=== PATIENT | female | born 1985 | race Caucasian/White ===

== ENCOUNTER 2021-09-04 12:54 | Outpatient (CLI) | payer BC, SELFPAY ==
--- NOTE | 2021-09-04 13:19 | US_ITS ---
Final Report Patient: TASHA VALLES Facility:?[facility] Patient ID:?[id number] Site Patient ID:?[id number]. Site :?1985 Study:?US OB Pelvis OB f/u-09/04/2021 1:50:22 PM Ordering Physician:?Kimi Oakes Final Report: INDICATION: Follow-up subchorionic Comparison ultrasound 08/07/21 TECHNIQUE: Real-time szymanski-scale imaging of the pelvis was performed. FINDINGS: Single live intrauterine gestation. [place] Rol[place] length measures 4. 1 cm corresponding to 11 weeks 0 days with KATRIN of 03/26/2022. cardiac activity measures 171 beats per minute. Yolk sac visualized. Subchorionic hemorrhage lower uterine segment measuring 2.3 x 0.3 x 0.3 centimeters decreased in size previously measuring 1.3 x 1.5 x 2 centimeters. Left ovarian 4.3 x 2.3 x 4 centimeter anechoic cyst. IMPRESSION: Single intrauterine gestation with crown-rump length measuring 4.1 centimeters corresponding to gestational age 11 weeks 0 days with KATRIN of 03/26/2022. Small subchorionic hemorrhage in the lower uterine segment measuring 2.3 x 0.3 x 0.3 centimeters decreased in size. 4.3 centimeter x 2.3 x 4 centimeter left ovarian anechoic cyst. Dictated by Silvina Silva MD @ 09/04/2021 8:27:21 PM (Electronic Signature)
== END 2021-09-04 12:55 | disposition home or self-care (01) ==
LOC: US 12:55
PROVIDERS: PCP Internal Medicine; Visit Provider Advanced Practice Midwife
DX: O46.8X1 Other antepartum hemorrhage, first trimester (principal); O41.8X10 Other specified disorders of amniotic fluid and membranes, first trimester, not applicable or unspecified; Z3A.11 11 weeks gestation of pregnancy
CPT/HCPCS: 76816

== ENCOUNTER 2021-09-04 15:12 | Outpatient (CLI) | payer BC, SELFPAY ==
[2021-09-04 18:03] LABS: Albumin* 4.3 g/dL (3.3-5.0)
[2021-09-04 18:06] LABS: Alanine Aminotransferase* 12 U/L (4-35); Alkaline Phosphatase* 76 U/L (40-150); Aspartate Amino Transferase* 18 U/L (12-35); Bilirubin Direct* 0.3 mg/dL (0.0-0.5); Bilirubin Total* 0.4 mg/dL (0.1-1.5)
[2021-09-07 01:23] LABS: Beta-2-Microglob Serum/Plasma 2.2 mg/L (0.8-2.4); Bile Acids, Total 9 umol/L (0-10)
[2021-09-07 05:22] LABS: Cardiolipin Antibody IgA < 10 APL (<=11); Cardiolipin Antibody IgG < 10 GPL (<=14); Cardiolipin Antibody IgM < 10 MPL (<=12)
[2021-09-11 02:47] LABS: Prothrombin Time 12.7 sec (12.0-15.5); dRVVT Screen 32 sec (33-44)
== END 2021-09-04 15:13 | disposition home or self-care (01) ==
PROVIDERS: PCP Internal Medicine; Visit Provider Obstetrics & Gynecology
DX: O41.8X10 Other specified disorders of amniotic fluid and membranes, first trimester, not applicable or unspecified (principal); O20.9 Hemorrhage in early pregnancy, unspecified; O34.81 Maternal care for other abnormalities of pelvic organs, first trimester; N83.202 Unspecified ovarian cyst, left side; Z3A.11 11 weeks gestation of pregnancy
CPT/HCPCS: 76816; 80076; 82232; 82239; 85245; 85610; 85613; 85730; 86039; 86147; 86225; 86235; 86376

== ENCOUNTER 2021-09-17 07:08 | Outpatient (CLI) | payer BC, SELFPAY ==
--- NOTE | 2021-09-17 07:15 | CRLHL7_ITS ---
For Patients: As a result of the Century Cures Act, medical imaging exams and procedure reports are released immediately into your electronic medical record. You may view this report before your referring provider. If you have questions, please contact your health care provider. INDICATION: FOLLOW UP LOGAN, STRONG HX MISCARRIAGE AND LABOR COMPARISON: 09/04/2021 TECHNIQUE: Real-time szymanski-scale imaging of the pelvis was performed. FINDINGS: Sonographic imaging demonstrates a single living intrauterine gestation. The embryo demonstrates a regular cardiac rate measuring 167 beats per minute. The embryo`s crown-rump length measurement of 6.1 cm corresponds to a gestational age of 12 weeks 4 days with a sonographic due date of 03/28/2022. Previously noted subchorionic hemorrhage is not visualized on today`s study. There is a small retroplacental bleed is measuring 2.9 x 2.7 x 1.2 cm. Corpus luteal cyst left ovary again noted. IMPRESSION: Resolution of previously noted subchorionic hemorrhage. Retroplacental hemorrhage is now present measuring 2.9 x 2.7 x 1.2 cm. Dictated by Ethan Bah MD @ 09/17/2021 8:42:52 AM (Electronically Signed)
== END 2021-09-17 07:09 | disposition home or self-care (01) ==
LOC: US 07:09
PROVIDERS: PCP Internal Medicine; Visit Provider Advanced Practice Midwife
DX: O09.211 Supervision of pregnancy with history of pre-term labor, first trimester (principal); O20.9 Hemorrhage in early pregnancy, unspecified; Z3A.12 12 weeks gestation of pregnancy
CPT/HCPCS: 76816

== ENCOUNTER 2021-09-17 09:49 | Outpatient (CLI) | payer BC, SELFPAY ==
[2021-09-17 14:19] LABS: Free T4 Free Thyroxine* 1.52 ng/dL (0.70-1.85)
[2021-09-17 14:33] LABS: Thyroid Stimulating Hormone* 0.088 uIU/mL (0.270-4.20)
--- OUTSIDE RECORDS SUMMARY | 2021-10-15 08:09 | XMS_ITS | Encounter Summary ---
:1985 Author Organization [place] Address [address] [place] [address]. 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 [place] [id number] Social History Tobacco Use Types Packs/Day Years Used Date Never Smoker Smokeless Tobacco: Never Used Alcohol Use Standard Drinks/Week Comments Yes 0 (1 standard drink = 0.6 oz pure alcoho l) Sex Assigned at Date Recorded Not on file documented as of this encounter Plan of Treatment Upcoming Encounters Date Type Specialty Care Team Description 01/07/2022 Virtual Visit Endocrinology Natalya Jean MD [address] [place] [address] (Wo rk) documented as of this encounter Procedures Procedure Name Priority Date/Time Associated Comments Diagnosis TSH WITH FREE T4 Routine 04/26/2015 8:26 AM Encounter for Resu lts for this REFLEX WIND SITE MANAGER routine adult procedure are in physical exam with the resul ts abnormal finding s section. Hypothyroidism due to acquired atrophy of thyroid T4 FREE Routine 04/26/2015 8:26 AM Encounter for Results for this WIND SITE MANAGER routine adult procedure are in physical exam with the resul ts abnormal findings section. LIPID REFLEX TO DIRECT Routine 04/26/2015 8:26 AM Encounter fo r Results for this LDL PANEL WIND SITE MANAGER routine adult procedure are in physical exam with the resul ts abnormal findings section. COMPREHENSIVE Routine 04/26/2015 8:26 AM Encounter for Results for this METABOLIC PANEL WIND SITE MANAGER routine adult procedure a re in physical exam with the resul ts abnormal finding s section. Overweight CBC WITH PLATELETS Routine 04/26/2015 8:26 AM Encounter for Re sults for this WIND SITE MANAGER routine adult procedure are in physical exam with the resul ts abnormal findings section. documented in this encounter Results T4 free (04/26/2015 8:26 AM WIND SITE MANAGER) athologist Signature T4 Free 0.98 0.76 - 1.46 [facility] ng/dL [facility] Specimen Anatomical Collection Method Collection Time Receive d Time (Source) Location / / Volume Laterality 04/26/2015 8:26 AM 6 8:27 WIND SITE MANAGER AM WIND SITE MANAGER Gina Bautista PA-C LAB - BLOOD ORDERABLES Performing Organization Address City/State/ZIP Code Phon e Number [facility] [address] [place] [address] (ABNORMAL) CBC with platelets (04/26/2015 8:26 AM WIND SITE MANAGER) athologist Signature WBC 4.7 4.0 - 11.0 [place] 10e9/L [facility] RBC Count 4.41 3.8 - 5.2 [place] 10e12/L [facility] [place] Hemoglobin 8.4 (L) 11.7 - 15.7 [place] g/dL [facility] [place] Comment: Results confirmed by repeat mónica t Hematocrit 29.1 (L) 35.0 - 47.0 % [facility] [place] MCV 66 (L) 78 - 100 fl [facility] [place] MCH 19.0 (L) 26.5 - 33.0 pg [facility] [place] MCHC 28.9 (L) 31.5 - 36.5 g/dL [facility] Comment: Results confirmed by repeat mónica t RDW 16.7 (H) 10.0 - 15.0 % [facility] Platelet Count 321 150 - 450 10e9/L [facility] Specimen Anatomical Collection Method Collection Time Receive d Time (Source) Location / / Volume Laterality Blood specimen 04/26/2015 8:26 AM 016 8:27 (specimen) WIND SITE MANAGER AM WIND SITE MANAGER Gina Bautista PA-C LAB - BLOOD ORDERABLES Performing Organization Address City/[facility]/ZIP Code Phon e Number [facility] [address] [place], [place] [address] LIPID REFLEX TO DIRECT LDL PANEL (04/26/2015 8:26 AM WIND SITE MANAGER) P athologist Signature Cholesterol 109 <200 mg/dL [facility] Triglycerides 70 <150 mg/dL [facility] Comment: Fasting specimen HDL Cholesterol 54 >49 mg/dL [place] [facility] LDL Cholesterol Calculated 41 <100 mg/dL [facility] Comment: Desirable: <100 mg/dl Non HDL Cholesterol 55 <130 mg/dL [facility] Specimen Anatomical Collection Method Collection Time Receive d Time (Source) Location / / Volume Laterality Blood specimen 04/26/2015 8:26 AM 016 8:27 (specimen) WIND SITE MANAGER AM WIND SITE MANAGER Gina Bautista PA-C LAB - BLOOD ORDERABLES Performing Organization Address City/[facility]/ZIP Code Phon e Number [facility] [address] [place] [address] (ABNORMAL) TSH with free T4 reflex (04/26/2015 8:26 AM WIND SITE MANAGER) P athologist Signature TSH 7.92 (H) 0.40 - [facility] 4.00 mU/L [facility] Specimen Anatomical Collection Method Collection Time Receive d Time (Source) Location / / Volume Laterality Blood specimen 04/26/2015 8:26 AM 016 8:27 (specimen) WIND SITE MANAGER AM WIND SITE MANAGER Gina Bautista PA-C LAB - BLOOD ORDERABLES Performing Organization Address City/State/ZIP Code Phon e Number [facility] [address] [place] [address] (ABNORMAL) Comprehensive metabolic panel (04/26/2015 8:26 AM WIND SITE MANAGER) [facility] gist Method Time Signature Sodium 140 133 - 144 [place] mmol/L [facility] Potassium 4.1 3.4 - 5.3 [place] mmol/L [facility] Chloride 109 94 - 109 [place] mmol/L [facility] Carbon Dioxide 23 20 - 32 [place] mmol/L [facility] Anion Gap 8 3 - 14 [place] mmol/L [facility] Glucose 87 70 - 99 [place] mg/dL [facility] Urea Nitrogen 10 7 - 30 [place] mg/dL [facility] Creatinine 0.74 0.52 - [place] 1.04 [facility]INICS mg/dL [facility] GFR Estimate >90 >60 [place] Non GFR Calc mL/min/1. CLINICS 7m2 [facility] GFR Estimate If >90 >60 [place] Black GFR Calc mL/min/1. CLIN ICS 7m2 [facility] Calcium 8.3 (L) 8.5 - [place] 10.1 CLINICS mg/dL [facility] Bilirubin Total 0.5 0.2 - 1.3 [place] mg/dL [facility] Albumin 3.8 3.4 - 5.0 [place] g/dL [facility] Protein Total 7.4 6.8 - 8.8 [place] g/dL [facility] Alkaline 71 40 - 150 [place] Phosphatase U/L [facility] ALT 19 0 - 50 [place] U/L [facility] AST 14 0 - 45 [facility] U/L [facility] Specimen Anatomical Collection Method Collection Time Receive d Time (Source) Location / / Volume Laterality Blood specimen 04/26/2015 8:26 AM 016 8:27 (specimen) WIND SITE MANAGER AM WIND SITE MANAGER Gina Bautista PA-C LAB - BLOOD ORDERABLES Performing Organization Address City/State/ZIP Code Phon e Number [facility] [address] [place] [address] documented in this encounter Visit Diagnoses Diagnosis Encounter for routine adult physical exa m with abnormal findings Overweight 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 documented in this encounter Additional Health Concerns Assessment Noted Time PHQ-9 Depression Total Score: 16 04/26/2015 8:54 AM CS T documented as of this encounter Care Teams Psychiatric Registered Nurse Relationship Specialty Start Date End Date Gina Bautista, PCP - General Physician Weir Fisher 5 09/03/21 PA-C [id number] [address] [place], [place] [address] Gina Bautista, PCP - Assigned PCP 01/12/15 05/11/18 PA-C [id number] [address] [place], [place] [address] Gina Bautista, Physician Weir Fisher 01/31/15 PA-C [id number] [address] [place], [place] [address] Gina Bautista, Assigned PCP 01/12/15 PA-C [id number] [place] [address] documented as of this encounter
--- OUTSIDE RECORDS SUMMARY | 2021-10-15 08:09 | XMS_ITS | Encounter Summary ---
:1985 Author Organization [facility] Address [address] [place] [address]. [place] [address] Care Team Providers Name Role Phone Gina Bautista PA-C Primary Care Provider [phone] Gina Bautista PA-C Unavailable [phone] Gina Bautista PA-C Unavailable [phone] Gina Bautista PA-C Unavailable [phone] Reason for Visit Reason Comments URI Encounter Details Date Type Department Care Team Description 06/25/2015 Office Visit [facility] Serum, Ro Viral URI (Primary Dx); Yony Yarbrough MD Acute pharyngitis, unspecified etiology [address] [facility] [place] [id number] [place] [phone] [address] [place], [place] [address] Social History Tobacco Use Types Packs/Day Years Used Date Never Smoker Smokeless Tobacco: Never Used Alcohol Use Standard Drinks/Week Comments Yes 0 (1 standard drink = 0.6 oz pure alcoho l) Sex Assigned at Date Recorded Not on file documented as of this encounter Last Filed Vital Signs Vital Sign Reading Time Taken Comments Blood Pressure 96/56 06/25/2015 5:17 PM CDT Pulse 82 06/25/2015 5:17 PM CDT Temperature 36.6 ??C (97.8 ??F) 06/25/2015 5:17 PM CDT Respiratory Rate - - Oxygen Saturation 100% 06/25/2015 5:17 PM CDT Inhaled Oxygen Concentration - - Weight 81.3 kg (179 lb 3.2 oz) 06/25/2015 5:17 PM CDT Height 167 cm (5' 5.75) 06/25/2015 5:17 PM CDT Body Mass Index 29.14 06/25/2015 5:17 PM CDT documented in this encounter Progress Notes oR Salgado MD - 06/25/2015 5:19 PM CDT SUBJECTIVE: Carley Hernandez is a 29 year old female who presents to clinic today for the following health issues: RESPIRATORY SYMPTOMS ?? Duration: 2 days ?? Description nasal congestion, rhinorrhea, sore throat, facial pain/pressure, cough, fever, headache, fatigue/malaise, hoarse voice, conjunctival irritation and diarrhea ?? Severity: moderate ?? Accompanying signs and symptoms: None ?? History (predisposing factors): none ?? Precipitating or alleviating factors: None ?? Therapies tried and outcome: rest and fluids OTC NSAID Woke up 2 days ago with fatigue and sore throat. Fever - 101.3. Woke up with congestion, facial pain, headache. Pushing fluids, resting and taking ibuprofen - about every 6 hours. No further fevers. Having diarrhea - worse this am. Loose without blood. Both boys have been sick and negative test for influenza. Have both had high fevers, fatigue. Problem list and histories reviewed & adjusted, as indicated. Additional history: as documented ROS: Constitutional, HEENT, cardiovascular, pulmonary, gi and gu systems are negative, except as otherwise noted. Problem list, Medication list, Allergies, and Medical/Social/Surgical histories reviewed in [facility] andupdated as appropriate. OBJECTIVE: BP 96/56 mmHg Pulse 82 Temp(Src) 97.8 ??F (36.6 ??C) (Tympanic) Ht 5' 5.75 (1.67 m) Wt 179 lb 3.2 oz (81.285 kg) BMI 29.15 kg/m2 SpO2 100% Body mass index is 29.15 kg/(m^2). General Appearance: tired appearing, alert and no distress Eyes: no discharge, erythema. Normal pupils. Both Ears: normal: no effusions, no erythema, normal landmarks Nose: clear rhinorrhea and congested Sinuses: maxillary tenderness on bilaterally Oropharynx: mild erythema, clear PND Neck: Supple. No adenopathy, no asymmetry, masses Respiratory: lungs clear to auscultation - no rales, rhonchi or wheezes. Cardiovascular: regular rate and rhythm, normal S1 S2, no S3 or S4 and no murmur, click or rub. No peripheral edema. Skin: no rashes or lesions. Well perfused and normal turgor. Diagnostic Test Results: Results for orders placed or performed in visit on 06/25/15 (from the past 24 hour(s)) Strep, Rapid Screen Result Value Ref Range Specimen Description Throat Rapid Strep A Screen NEGATIVE: No Group A streptococcal antigen detected by immunoassay, await culture report. Micro Report Status FINAL 06/25/2015 ASSESSMENT/PLAN: (J06.9) Viral URI (primary encounter diagnosis) Comment: strep negative, sx c/w viral infection, likely adenovirus Plan: - supportive cares - push fluids, rest - ibuprofen as needed - steamy showers, decongestant as needed (J02.9) Acute pharyngitis, unspecified etiology Plan: Strep, Rapid Screen, Beta strep group A culture - will call if strep turns positive BMI: Estimated body mass index is 29.15 kg/(m^2) as calculated from the following: Height as of this encounter: 5' 5.75 (1.67 m). Weight as of this encounter: 179 lb 3.2 oz (81.285 kg). Weight management plan: Patient was referred to their PCP to discuss a diet and exercise plan. Follow up with Provider - alexis Salgado [facility] [place] documented in this encounter Nursing Notes Melody Womack LPN - 06/25/2015 5:19 PM CDT Chief Complaint Patient presents with ??? URI Initial BP 96/56 mmHg Pulse 82 Temp(Src) 97.8 ??F (36.6 ??C) (Tympanic) Ht 5' 5.75 (1.67 m) Wt 179 lb 3.2 oz (81.285 kg) BMI 29.15 kg/m2 SpO2 100% Estimated body mass index is 29.15 kg/(m^2) as calculated from the following: Height as of this encounter: 5' 5.75 (1.67 m). Weight as of this encounter: 179 lb 3.2 oz (81.285 kg). BP completed using cuff size: regular Melody Womack LPN documented in this encounter Plan of Treatment Upcoming Encounters Date Type Specialty Care Team Description 01/07/2022 Virtual Visit Endocrinology Natalya Jean MD [address] [place] [address] (Wo rk) documented as of this encounter Procedures Procedure Name Priority Date/Time Associated Diagnosis Comme nts RAPID STREP SCREEN Routine 06/25/2015 5:20 PM Acute pharyngiti s, Results for this THROAT SWAB CDT unspecified etiology procedu re are in the results section. BETA HEMOLYTIC Routine 06/25/2015 5:20 PM Acute pharyngitis, R esults for this STREP GROUP A CDT unspecified etiology proced ure are in CULTURE the results section. documented in this encounter Results Beta strep group A culture (06/25/2015 5:20 PM CDT) Component Value Ref Test Analysis Performed At [facility] Range Method Time Signature Specimen Throat [facility] [place] Culture Micro No Beta [place] Streptococcus CLINICS isolated [place] Micro Report FINAL 06/27/2015 [facility] Specimen Anatomical Collection Method Collection Time Receive d Time (Source) Location / / Volume Laterality 06/25/2015 5:20 PM 6 5:25 CDT PM CDT Ro Salgado MD LAB - MICRO GENERAL ORDERABL ES Performing Organization Address City/State/ZIP Code Phon e Number [facility] [address] [facility] [place] [address] Strep, Rapid Screen (06/25/2015 5:20 PM CDT) Component Value Ref Test Analysis Performed At [facility] [employer] Range Method Time Signature Specimen Throat [facility] [place] Rapid Strep A NEGATIVE: No Group A strepto coccal antigen detected by immunoassay, await [place] Screen culture report. CLINICS [place] Micro Report FINAL 06/25/2015 [place] Status [facility]INICS [facility] Specimen Anatomical Collection Method Collection Time Receive d Time (Source) Location / / Volume Laterality Specimen from 06/25/2015 5:20 PM 06/25/19 16 5:25 throat CDT PM CDT (specimen) Ro Salgado MD LAB - MICRO GENERAL ORDERABL ES Performing Organization Address City/State/ZIP Code Phon e Number [facility] [place] [address] [facility] [place] [address] documented in this encounter Visit Diagnoses Diagnosis Viral URI - Primary Acute upper respiratory infections of un specified site Acute pharyngitis, unspecified etiology documented in this encounter Additional Health Concerns Assessment Noted Time PHQ-9 Depression Total Score: 16 04/26/2015 8:54 AM CS T documented as of this encounter Care Teams Yarn Preparation Supervisor Relationship Specialty Start Date End Date Gina Bautista, PCP - General Physician Fulfillment Representative 5 09/03/21 PA-C [id number] [place] [address] Gina Bautista, PCP - Assigned PCP 01/12/15 05/11/18 PA-C [address] [place] [address] Gina Bautista, Physician Fulfillment Representative 01/31/15 PA-C 47640 [address] [place], [place] [address] Gina Bautista, Assigned PCP 01/12/15 PA-C [address] [place] [address] documented as of this encounter
--- OUTSIDE RECORDS SUMMARY | 2021-10-15 08:09 | XMS_ITS | Encounter Summary ---
:1985 Author Organization [place] Address [address] [place] [address]. 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 [address] [place] [address] Social History Tobacco Use Types Packs/Day Years Used Date Never Smoker Smokeless Tobacco: Never Used Alcohol Use Standard Drinks/Week Comments Yes 0 (1 standard drink = 0.6 oz pure alcoho l) Sex Assigned at Date Recorded Not on file documented as of this encounter Plan of Treatment Upcoming Encounters Date Type Specialty Care Team Description 01/07/2022 Virtual Visit Endocrinology aNtalya Jean MD [address] [place], [place] [phone] (Wo rk) documented as of this encounter Procedures Procedure Name Priority Date/Time Associated Diagnosis Comme nts VITAMIN D Routine 04/10/2017 2:35 PM Vitamin D deficiency R esults for this DEFICIENCY BRIDGE INSPECTOR procedure are i n SCREENING the results section. TSH WITH FREE T4 Routine 04/10/2017 2:35 PM Hypothyroidism due to Results for this REFLEX BRIDGE INSPECTOR acquired atrophy of procedur e are in thyroid the results section. T4 FREE Routine 04/10/2017 2:35 PM Vitamin D deficiency R esults for this BRIDGE INSPECTOR procedure are i n the results section. documented in this encounter Results T4 free (04/10/2017 2:35 PM BRIDGE INSPECTOR) athologist Signature T4 Free 0.94 0.76 - 1.46 04/12/2017 [facility] ng/dL 1:41 PM BRIDGE INSPECTOR [facility] Specimen Anatomical Collection Method Collection Time Receive d Time (Source) Location / / Volume Laterality 04/10/2017 2:35 PM 8 2:36 BRIDGE INSPECTOR PM BRIDGE INSPECTOR Gina Bautista PA-C LAB - BLOOD ORDERABLES Performing Organization Address City/[facility]/ZIP Code Phon e Number [facility] [address] [place] [phone] (ABNORMAL) TSH with free T4 reflex FUTURE 2mo (04/10/2017 2:35 PM BRIDGE INSPECTOR) athologist Signature TSH 10.56 (H) 0.40 - 04/12/2017 [facility] 4.00 mU/L 1:[address] [facility] Specimen Anatomical Collection Method Collection Time Receive d Time (Source) Location / / Volume Laterality Blood specimen 04/10/2017 2:35 PM 018 2:36 (specimen) BRIDGE INSPECTOR PM BRIDGE INSPECTOR Gina Bautista PA-C LAB - BLOOD ORDERABLES Performing Organization Address City/State/ZIP Code Phon e Number [facility] [address] [place] [phone] (ABNORMAL) Vitamin D Deficiency (04/10/2017 2:35 PM BRIDGE INSPECTOR) athologist Signature Vitamin D 13 (L) 20 - 75 04/11/2017 [facility] Deficiency ug/L 11:46 AM BRIDGE INSPECTOR [facility] Comment: Season, race, dietary intake, and treatm ent affect the concentration of 80-iuyennv-Ypjmsiu D. Values may decreas e during winter months and increase during summer months. Values 20-29 ug/L may indicate Vitamin D insufficiency and values <20 ug/L may indicate Vitamin D deficiency. Vitamin D determination is routinely per formed by an immunoassay specific for 25 hydroxyvitamin D3. ??If an individual is on vitamin D2 (ergocalciferol) supplementation, please specify 25 OH vi tamin D2 and D3 level determination by LCMSMS test VITD23. Specimen Anatomical Collection Method Collection Time Receive d Time (Source) Location / / Volume Laterality Blood specimen 04/10/2017 2:35 PM 018 2:36 (specimen) BRIDGE INSPECTOR PM BRIDGE INSPECTOR Gina Bautista PA-C LAB - BLOOD ORDERABLES Performing Organization Address City/State/ZIP Code Phon e Number [address] documented in this encounter Visit Diagnoses Diagnosis Vitamin D deficiency Unspecified vitamin D deficiency 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 documented in this encounter Additional Health Concerns Assessment Noted Time PHQ-9 Depression Total Score: 9 02/19/2017 2:07 PM BRIDGE INSPECTOR documented as of this encounter Care Teams Pneumatic Press Hand Relationship Specialty Start Date End Date Gina Bautista, PCP - General Physician Dinkey Engine Operator 5 09/03/21 PA-C [id number] [place] [address] Gina Bautista, PCP - Assigned PCP 01/12/15 05/11/18 PA-C [id number] [place] [address] Gina Bautista, Physician Dinkey Engine Operator 01/31/15 PA-C [address] [place] [address] Gina Bautista, Assigned PCP 01/12/15 PA-C [address] [place] [address] documented as of this encounter
--- OUTSIDE RECORDS SUMMARY | 2021-10-15 08:09 | XMS_ITS | Encounter Summary ---
:1985 Author Organization [place] Address [address] [place] [address] Care Team Providers Name Role Phone Gina Bautista PA-C Unavailable [phone] Vidya Espinal APRNM Unavailable [phone] [place] [address] Unavailable Marissa Jean MD Unavailable Violette BoldenM Primary Care Provider Reason for Visit Reason Onset Date Comments Appointment 09/04/2021 Encounter Details Date Type Department Care Team Description 09/04/[address] [facility] Natalya Jean, Lizzeth Israel MD [address] [facility] [address] [place] [address] [place], [place] [address] (Wo rk) Social History Tobacco Use Types Packs/Day Years Used Date Never Smoker Smokeless Tobacco: Never Used Alcohol Use Standard Drinks/Week Comments Yes 0 (1 standard drink = 0.6 oz pure alcoho l) Sex Assigned at Date Recorded Not on file documented as of this encounter Miscellaneous Notes Telephone Encounter - Bhavana Biswas - 09/04/2021 12:21 PM CDT [facility], relayed message to mapping analyst she will relay this message to the team/person who called. Telephone Encounter - Marissa Jean MD - 09/04/2021 10:29 AM CDT NEW PT TO ME. I am very sorry- but at this time schedule is booked out and I do not have any sooner appointments. Patient my wish to request endo consult at another locations or [facility] Endocrinology. Let me know if you have any questions. Thank you. Marissa Jean MD Telephone Encounter - Karyn Iniguez RN - 09/04/2021 9:15 AM CDT Please advise as pt is . Telephone Encounter - Kendall Burden - 09/04/2021 9:08 AM CDT [facility] Call [facility] Phone Message May a detailed message be left on voicemail: yes Reason for Call: Appointment Intake Referring Provider Name: Vidya Espinal Diagnosis and/or Symptoms: Hypothyroidism and Per referral urgency 3-5 days. [facility] wondering if pt can be seen before 01/07. Action Taken: Message routed to: Other: endo Travel Screening: Not Applicable documented in this encounter Plan of Treatment Upcoming Encounters Date Type Specialty Care Team Description 01/07/2022 Virtual Visit Endocrinology Natalya Jean MD [address] [place] [address] (Wo rk) documented as of this encounter Visit Diagnoses Not on filedocumented in this encounter Additional Health Concerns Assessment Noted Time PHQ-9 Depression Total Score: 10 05/09/2017 8:01 AM CS T documented as of this encounter Care Teams Inductor Tester Relationship Specialty Start Date End Date Violette Bolden CNM PCP - General 09/04/21 [facility] [address] [place] [address] Gina Bautista, Physician Youth Career Specialist 01/31/15 [facility] [address] [place] [address] Vidya Espinal APRN CNM Granite Fabricator 08/21/[address] [address] Clinic[facility] 08/21/21 [facility] [address] [place] [address] Marissa Jean MD Hospitalist Endocrinology, 09/04/21 [address] Diabetes, and [address] [place], [place] [id number] documented as of this encounter
--- OUTSIDE RECORDS SUMMARY | 2021-10-15 08:09 | XMS_ITS | Encounter Summary ---
:1985 Author Organization [place] Address [address] [place] [address]. [place] [address] Care Team Providers Name Role Phone Gina Bautista PA-C Primary Care Provider [phone] Gina Bautista PA-C Unavailable [phone] Gina Bautista PA-C Unavailable [phone] Gina Bautista PA-C Unavailable [phone] Encounter Details Date Type Department Care Team Description 05/22/2017 Office Visit [facility] Lisa Lopez LP Anxiety (Primary Dx) Services [address] [phone] Social History Tobacco Use Types Packs/Day Years Used Date Never Smoker Smokeless Tobacco: Never Used Alcohol Use Standard Drinks/Week Comments Yes 0 (1 standard drink = 0.6 oz pure alcoho l) Sex Assigned at Date Recorded Not on file documented as of this encounter Progress Notes Lisa Lopez LP - 05/22/2017 2:00 PM CDT Images from the original note were not included. Progress Note Client Name: Carley Hernandez Date: 05-22-17 Service Type: Individual Session Start Time: 2:10 Session End Time: 3:00 pm Session Length: 38- 52 min Session #: 5 Attendees: Client Treatment Plan Last Reviewed: today PHQ-9 / JUAN MIGUEL-7 : see flow sheet DATA Progress Since Last Session (Related to Symptoms / Goals / Homework): Symptoms: Stable, but with anxiety Homework: Completed in session Episode of Care Goals: Satisfactory progress - ACTION (Actively working towards change); Intervenedby reinforcing change plan / affirming steps taken Current / Ongoing Stressors and Concerns: difficult co-parenting Has full physical custody / shared legal custody anxiety Treatment Objective(s) Addressed in This Session: use at least 6 coping skills for anxiety management in the next 16 weeks Intervention: Client reports that overall she is able to breath again Although its a stressful week, moving to new town feels on course. Explored co-parenting; especially for her with spouses daughter. Processed emotions. ASSESSMENT: Current Emotional / Mental Status (status of significant symptoms): Risk status (Self / Other harm or suicidal ideation) Client denies current fears or concerns for personal safety. Client denies current or recent suicidal ideation or behaviors. Client denies current or recent homicidal ideation or behaviors. Client denies current or recent self injurious behavior or ideation. Client denies other safety concerns. A safety and risk management plan has not been developed at this time, however client was given theafter-hours number / 911 should there be a change in any of these risk factors. Appearance: Appropriate Eye Contact: Good Psychomotor Behavior: Normal Attitude: Cooperative Orientation: All Speech Rate / Production: Normal Volume: Normal Mood: Normal Affect: Appropriate Thought Content: Clear Thought Form: Coherent Logical Insight: Good Medication Review: No current psychiatric medications prescribed Medication Compliance: NA Changes in Health Issues: None reported Chemical Use Review: Substance Use: Chemical use reviewed, no active concerns identified Tobacco Use: No current tobacco use. Collateral Reports Completed: Routed note to PCP as needed. PLAN: (Client Tasks / Therapist Tasks / Other) Reframe Isvinny's misbehaviors as anxiety. Parenting discussion with spouse past hw Consider sharing the idea of thresholds with spouse. Past hw Use TIP taylor Lopez LP Treatment Plan Client's Name: Carley Hernandez Date Of : 1985 Date: 02-19-17 DSM-V Diagnoses: JUAN MIGUEL Psychosocial / Contextual Factors: WHODAS: see dx Referral / Collaboration: Referral to another professional/service is not indicated at this time.. Anticipated number of session or this episode of care: 10 As a preliminary treatment goal, client will experience a reduction in anxiety, will develop more effective coping skills to manage anxiety symptoms, will develop healthy cognitive patterns and beliefsand will increase ability to function adaptively. The focus of initial interventions will be to alleviate anxiety, increase ability to function adaptively, increase coping skills, increase self esteem, teach CBT skills, teach distress tolerance skills, teach problem-solving skills and teach stress mangement techniques MeasurableTreatment Goal(s) related to diagnosis / functional impairment(s) Goal 1: Client will gain skills to manage anxiety. ???I will know I've met my goal when .??? good understand Fight/flight, use healthy detachment skills Objective #A (Client Action) Client will use cognitive strategies identified in therapy to challenge anxious thoughts. Status: New - Date: 02-19-17 Update: 05-22-17 Making progress. Is using skills. Plan is to gain consistently, and mage triggers. Intervention(s) Therapist will teach CBT, coping skills. Objective #B Client will use at least 6 coping skills for anxiety management in the next 16 weeks. Status: New - Date: 02-19-17 Update: 05-22-17 Making progress. Is using skills. Plan is to gain consistently, and mage triggers. Intervention(s) Therapist will teach CBT, coping skills. Client has reviewed and agreed to the above plan. Lisa Lopez LP February 19, 2017 documented in this encounter Plan of Treatment Upcoming Encounters Date Type Specialty Care Team Description 01/07/2022 Virtual Visit Endocrinology Natalya Jean MD [address] [place] [address] (Wo rk) documented as of this encounter Visit Diagnoses Diagnosis Anxiety - Primary Anxiety state, unspecified documented in this encounter Additional Health Concerns Assessment Noted Time PHQ-9 Depression Total Score: 10 05/09/2017 8:01 AM CS T documented as of this encounter Care Teams Flight Attendant/Inflight Supervisor Relationship Specialty Start Date End Date Gina Bautista, PCP - General Physician Hemmer Chainstitch 5 09/03/21 [place] [address] [place], [place] [address] Gina Bautista, PCP - Assigned PCP 01/12/15 05/11/18 [place] [address] [place], [place] [address] Gina Bautista, Physician Hemmer Chainstitch 01/31/15 [facility] [address] [place], [place] [address] Gina Bautista, Assigned PCP 01/12/15 [place] [address] [place], [place] [address] documented as of this encounter
--- OUTSIDE RECORDS SUMMARY | 2021-10-15 08:09 | XMS_ITS | Encounter Summary ---
:1985 Author Organization [place] Address [address] [place] [address] Care Team Providers Name Role Phone Gina Bautista PA-C Primary Care Provider [phone] Gina Bautista PA-C Unavailable [phone] Gina Bautista PA-C Unavailable [phone] Gina Bautista PA-C Unavailable [phone] Encounter Details Date Type Department Care Team Description 04/27/2015 Orders Only [facility] Iro n deficiency anemia, [place] [facility] unspecified iron [address] [place] [address] Social History Tobacco Use Types Packs/Day [...] Endocrinology Natalya Jean MD [address] [place], [place] [address] (Wo rk) documented as of this encounter Procedures Procedure Name Priority Date/Time Associated Diagnosis Comme nts IRON AND IRON Routine 04/27/2015 11:50 AM Iron deficiency Resu lts for this BINDING CAPACITY FRUIT EXPRESS AGENT anemia, unspecified proc edure are in iron deficiency the results section. FERRITIN Routine 04/27/2015 11:50 AM Iron deficiency Resul ts for this FRUIT EXPRESS AGENT anemia, unspecified procedur e are in iron deficiency the results section. documented in this encounter Results (ABNORMAL) Iron and iron binding capacity (04/27/2015 11:50 AM FRUIT EXPRESS AGENT) Patholo gist Method Time Signature Iron 13 (L) 35 - 180 [facility] Iron Binding 619 (H) 240 - 430 [place] Cap ug/dL [facility] Iron Saturation 2 (L) 15 - 46 % [place] Index [facility] Specimen Anatomical Collection Method Collection Time Receive d Time (Source) Location / / Volume Laterality Blood specimen 04/27/2015 11:50 6 (specimen) AM FRUIT EXPRESS AGENT 11:51 AM FRUIT EXPRESS AGENT Gina Bautista PA-C LAB - BLOOD ORDERABLES Performing Organization Address City/[facility]/ZIP [facility] Phon e Number [facility] [address] [place] [phone] (ABNORMAL) Ferritin (04/27/2015 11:50 AM FRUIT EXPRESS AGENT) P athologist Signature Ferritin 2 (L) 12 - 150 [facility] ng/mL [facility] Specimen Anatomical Collection Method Collection Time Receive d Time (Source) Location / / Volume Laterality Blood specimen 04/27/2015 11:50 6 (specimen) AM FRUIT EXPRESS AGENT 11:51 AM FRUIT EXPRESS AGENT Gina Bautista PA-C LAB - BLOOD ORDERABLES Performing Organization Address City/[facility] Phon e Number [facility] [address] [place] [address] documented in this encounter Visit Diagnoses Diagnosis Iron deficiency anemia, unspecified iron deficiency documented in this encounter Additional Health Concerns Assessment Noted Time PHQ-9 Depression Total Score: 16 04/26/2015 8:54 AM CS T documented as of this encounter Care Teams Residential Framing Carpenter Relationship Specialty Start Date End Date Gina Bautista PCP - General Physician Leather Scraper 5 09/03/21 [place] [address] [place] [address] Gina Bautista, PCP - Assigned PCP 01/12/15 05/11/18 PA-C [address] [place], [place] [id number] Gina Bautista, Physician Leather Scraper 01/31/15 PA-C [address] [place], [place] [address] Gina Bautista, Assigned PCP 01/12/15 PA-C [address] [place], [place] [address] documented as of this encounter
--- OUTSIDE RECORDS SUMMARY | 2021-10-15 08:09 | XMS_ITS | Encounter Summary ---
:1985 Author Organization [facility] Address [address] [place] [address]. [place] [address] Care Team Providers Name Role Phone Gina Bautista PA-C Primary Care Provider [phone] Oestrfrances, Gina Vance PA-C Unavailable [phone] Oestrfrances, Gina Vance PA-C Unavailable [phone] Oestrfrances, Gina Vance PA-C Unavailable [phone] Reason for Visit Reason Comments IUD Encounter Details Date Type Department Care Team Description 01/27/2017 Office Visit [facility] Nadine Monreal Encou nter for IUD removal (Primary Dx); [facility] Encounter for preconception consultation [place] [address] [place] [address] [facility] [address] [place], [place] (Work) [address] [phone] Social History Tobacco Use Types Packs/Day Years Used Date Never Smoker Smokeless Tobacco: Never Used Alcohol Use Standard Drinks/Week Comments Yes 0 (1 standard drink = 0.6 oz pure alcoho l) Sex Assigned at Date Recorded Not on file documented as of this encounter Last Filed Vital Signs Vital Sign Reading Time Taken Comments Blood Pressure 100/60 01/27/2017 1:05 PM EXTERMINATOR Pulse - - Temperature - - Respiratory Rate - - Oxygen Saturation - - Inhaled Oxygen Concentration - - Weight 79.3 kg (174 lb 12.8 oz) 01/27/2017 1:05 PM EXTERMINATOR Height - - Body Mass Index 28.21 12/19/2016 2:53 PM CDT documented in this encounter Progress Notes Nadine Monreal MD - 01/27/2017 1:00 PM CST SUBJECTIVE: Carley Hernandez is a 31 year old female who presents to clinic today for IUD removal. She alsonotes that her 2 prior pregnancies were high risk. She is status post gastric bypass in 2007 priorto either . First complicated by foreshortened cervix, bedrest at 26 weeks, delivered at 35 weeks vaginally with no complications. Second was on 17OHP, delivered vaginally at 34 weeks and baby was in NICU for 2 weeks. This is a new partner. She does wish to conceive again soon. Her immediate history is also significant for anemia. She is seeing hematology. This is thought to be iron deficiency related to her prior bypass, and she has now received 2 iron infusions. We discussed the need to stabilize this and increase her hemoglobin and iron stores prior to . Problem list and histories reviewed & adjusted, as indicated. Additional history: as documented. Patient Active Problem List Diagnosis ??? Adjustment disorder with depressed mood ??? Hypothyroidism due to acquired atrophy of thyroid ??? Overweight ??? S/P gastric bypass Past Surgical History: Procedure Laterality Date ??? CHOLECYSTECTOMY ??? GASTRIC BYPASS Social History Substance Use Topics ??? Smoking status: Never Smoker ??? Smokeless tobacco: Never Used ??? Alcohol use 0.0 oz/week 0 Standard drinks or equivalent per week Problem (# of Occurrences) Relation (Name,Age of Onset) Family History Negative (2) Mother, Father Current Outpatient Prescriptions on File Prior to Visit: cyanocobalamin (VITAMIN B12) 1000 MCG/ML injection Inject 1 mL (1,000 mcg) into the muscle every 30 days vitamin D (ERGOCALCIFEROL) 22699 UNIT capsule Take 1 capsule (50,000 Units) by mouth once a week levothyroxine (SYNTHROID/LEVOTHROID) 50 MCG tablet Take 1 tablet (50 mcg) by mouth daily ferrous sulfate (IRON) 325 (65 FE) MG tablet Take 1 tablet (325 mg) by mouth 2 times daily levonorgestrel (MIRENA) 20 MCG/24HR IUD 1 each by Intrauterine route once No current facility-administered medications on file prior to visit. No Known Allergies ROS: General: No change in weight, sleep or appetite. Normal energy. No fever or chills Resp: No coughing, wheezing or shortness of breath CV: No chest pains or palpitations GI: No nausea, vomiting, heartburn, abdominal pain, diarrhea, constipation or change in bowel habits : No urinary frequency or dysuria, bladder or kidney problems Neurologic: No headaches, numbness, tingling, weakness, problems with balance or coordination Psychiatric: POSITIVE for:, stress, anxiety on occasion Heme/immune/allergy: No history of bleeding or clotting problems or anemia. No allergies or immune system problems Endocrine: POSITIVE for:, hypothyroidism Skin: No rashes,worrisome lesions or skin problems OBJECTIVE: Exam: Constitutional: Appearance: Well nourished, well developed alert, in no acute distress Chest: Respiratory Effort: Breathing unlabored Cardiovascular: no edema. Lymphatic: no inguinal lymphadenopathy present Skin:General Inspection: No rashes present, no lesions present, no areas of discoloration Neurologic/Psychiatric: Mental Status: Oriented X3 Pelvic Exam: External Genitalia: Normal appearance for age, no discharge present, no tenderness present, no inflammatory lesions present, color normal Vagina: Normal vaginal vault without central or paravaginal defects, no discharge present, no inflammatory lesions present, no masses present Bladder: Nontender to palpation Urethra: Urethral Body: Urethra palpation normal, urethra structural support normal Urethral Meatus: No erythema or lesions present Cervix: Appearance healthy, no lesions present, nontender to palpation, no bleeding presentPerineum: Perineum within normal limits, no evidence of trauma, no rashes or skin lesions present Anus: Anus within normal limits, no hemorrhoids present Inguinal Lymph Nodes: No lymphadenopathy present Pubic Hair: Normal pubic hair distribution for age Genitalia and Groin: No rashes present, no lesions present, no areas of discoloration, no masses present PROCEDURE: A speculum exam was performed and the cervix was visualized. The IUD string was visualized. Using curved forceps, the string was grasped and the IUD easily removed intact. In-Clinic Test Results: No results found for this or any previous visit (from the past 24 hour(s)). ASSESSMENT/PLAN: ICD-10-CM 1. Encounter for IUD removal Z30.432 REMOVE INTRAUTERINE DEVICE 2. Encounter for preconception consultation Z31.69 IUD was removed without complications. She is advised to use backup control if she does not wish to become right away. Given her history, she will need cervical length monitoring in the second trimester and I would recommend 17OHP beginning at 16 weeks through 36 weeks gestation. Start a vitamin. Contact us with a positive test and she should be seen at 10-12 weeks for first OB visit. Continue to follow with hematology as needed. Nadine Monreal MD [facility] RMINATOR documented in this encounter Nursing Notes Nataliia Rivas CMA - 01/27/2017 1:00 PM CST Chief Complaint Patient presents with ??? IUD Was not able to see strings at 12/19/2016 visit. Nataliia Rivas MA Initial BP 100/60 (BP Location: Right arm, Patient Position: Chair, Cuff Size: Adult Regular) Wt 174 lb 12.8 oz (79.3 kg) BMI 28.21 kg/m2 Estimated body mass index is 28.21 kg/(m^2) as calculated from the following: Height as of 17: 5' 6 (1.676 m). Weight as of this encounter: 174 lb 12.8 oz (79.3 kg). Medication Reconciliation: complete RMINATOR documented in this encounter Plan of Treatment Upcoming Encounters Date Type Specialty Care Team Description 01/07/2022 Virtual Visit Endocrinology Natalya Jean MD [address] [place] [address] (Wo rk) documented as of this encounter Procedures Procedure Name Priority Date/Time Associated Diagnosis Comme nts HC REMOVE INTRAUTERINE Routine 01/27/2017 1:33 PM Encounter fo r IUD DEVICE EXTERMINATOR removal documented in this encounter Visit Diagnoses Diagnosis Encounter for IUD removal - Primary Encounter for removal of intrauterine co ntraceptive device Encounter for preconception consultation documented in this encounter Additional Health Concerns Assessment Noted Time PHQ-9 Depression Total Score: 7 12/19/2016 3:37 PM CDT documented as of this encounter Care Teams Technology Engineer Relationship Specialty Start Date End Date Gina Bautista PCP - General Physician X Ray Examiner Of Aircraft 5 09/03/21 [place] [id number] [place] [address] Gina Bautista, PCP - Assigned PCP 01/12/15 05/11/18 [place] [address] [address] [place], [place] [address] Gina Bautista, Physician X Ray Examiner Of Aircraft 01/31/15 [place] [address] [place] [address] Gina Bautista, Assigned PCP 01/12/15 [place] [address] [place] [address] documented as of this encounter
--- OUTSIDE RECORDS SUMMARY | 2021-10-15 08:09 | XMS_ITS | Encounter Summary ---
:1985 Author Organization [facility] Address [address] [place] [address]. [place] [address] Care Team Providers Name Role Phone Gina Bautista PA-C Primary Care Provider [phone] Gina Bautista PA-C Unavailable [phone] Gian Bautista PA-C Unavailable [phone] Gina Bautista PA-C Unavailable [phone] Reason for Visit Reason Comments Sinus Problem Encounter Details Date Type Department Care Team Description 07/27/2015 Office Visit [facility] Gina Bautista Acute recurrent Clinic Lucia Vance PA-C maxillary sinusitis [address] (Primary Dx) [place], [place] [address] [phone] Social History Tobacco Use Types Packs/Day Years Used Date Never Smoker Smokeless Tobacco: Never Used Alcohol Use Standard Drinks/Week Comments Yes 0 (1 standard drink = 0.6 oz pure alcoho l) Sex Assigned at Date Recorded Not on file documented as of this encounter Last Filed Vital Signs Vital Sign Reading Time Taken Comments Blood Pressure 118/58 07/27/2015 8:56 AM CDT Pulse 101 07/27/2015 8:56 AM CDT Temperature 36.4 ??C (97.6 ??F) 07/27/2015 8:56 AM CDT Respiratory Rate 18 07/27/2015 8:56 AM CDT Oxygen Saturation 100% 07/27/2015 8:56 AM CDT Inhaled Oxygen Concentration - - Weight 81.6 kg (180 lb) 07/27/2015 8:56 AM CDT Height 167.6 cm (5' 6) 07/27/2015 8:56 AM CDT Body Mass Index 29.05 07/27/2015 8:56 AM CDT documented in this encounter Progress Notes Gina Bautista PA-C - 07/27/2015 7:18 AM CDT SUBJECTIVE: Carley Hernandez is a 29 year old female who presents to clinic today for the following health issues: RESPIRATORY SYMPTOMS ?? Duration: Ongoing ?? Description nasal congestion, rhinorrhea, sore throat, facial pain/pressure and cough ?? Severity: moderate ?? Accompanying signs and symptoms: None ?? History (predisposing factors): none ?? Precipitating or alleviating factors: None ?? Therapies tried and outcome: Seen in [facility]--Recently finished Amoxicillin, Ibuprofen, Mucinex Patient is here today complaining of nasal congestion, facial pain, hacky cough for 3 weeks She has been treated twice by in [place] with Amoxicillin without relief No fever, very tired and fatigued, tooth pain Of note, does have broken tooth, getting tooth removed Thursday Is using flonase and ibuprofen with some relief Problem list and histories reviewed & adjusted, as indicated. Additional history: as documented Patient Active Problem List Diagnosis ??? Adjustment disorder with depressed mood ??? Hypothyroidism due to acquired atrophy of thyroid Past Surgical History Procedure Laterality Date ??? Gastric bypass ??? Cholecystectomy History Substance Use Topics ??? Smoking status: Never Smoker ??? Smokeless tobacco: Never Used ??? Alcohol Use: 0.0 oz/week 0 Standard drinks or equivalent per week Family History Problem Relation Age of Onset ??? Family History Negative Mother ??? Family History Negative Father Current Outpatient Prescriptions Medication Sig Dispense Refill ??? amoxicillin-clavulanate (AUGMENTIN) 875-125 MG per tablet Take 1 tablet by mouth 2 times daily for 10 days 20 tablet 0 ??? benzonatate (TESSALON) 200 MG capsule Take 1 capsule (200 mg) by mouth 3 times daily as needed for cough 21 capsule 0 ??? ferrous sulfate (IRON) 325 (65 FE) MG tablet Take 1 tablet (325 mg) by mouth 2 times daily 60 tablet 2 ??? levothyroxine (SYNTHROID, LEVOTHROID) 75 MCG tablet Take 1 tablet (75 mcg) by mouth daily 90 tablet 3 ??? levonorgestrel (MIRENA) 20 MCG/24HR IUD 1 each by Intrauterine route once 1 each 0 ??? citalopram (CELEXA) 20 MG tablet Take 1/2 tablet (10 mg) for 1-2 weeks, then increase to 1 tablet orally daily 30 tablet 0 No Known Allergies ROS: Constitutional, HEENT, cardiovascular, pulmonary, gi and gu systems are negative, except as otherwise noted. OBJECTIVE: BP 118/58 mmHg Pulse 101 Temp(Src) 97.6 ??F (36.4 ??C) (Tympanic) Resp 18 Ht 5' 6 (1.676 m) Wt 180 lb (81.647 kg) BMI 29.07 kg/m2 SpO2 100% ? No Body mass index is 29.07 kg/(m^2). GENERAL: healthy, alert and no distress EYES: Eyes grossly normal to inspection, PERRL and conjunctivae and sclerae normal HENT: normal cephalic/atraumatic, ear canals and TM's normal, nose and mouth without ulcers or lesions, nasal mucosa edematous , oropharynx clear and oral mucous membranes moist NECK: no adenopathy, no asymmetry, masses, or scars and thyroid normal to palpation RESP: lungs clear to auscultation - no rales, rhonchi or wheezes CV: regular rate and rhythm, normal S1 S2, no S3 or S4, no murmur, click or rub, no peripheral edemaand peripheral pulses strong MS: no gross musculoskeletal defects noted, no edema Diagnostic Test Results: none ASSESSMENT/PLAN: 1. Acute recurrent maxillary sinusitis Chronic issue, new to me, will change to Augmentin for antibiotic coverage, advised rest, fluids andOTCs- recommend Sudafed. Also sent in Jose Vega for cough. F/U if symptoms worsen or do not improve. - amoxicillin-clavulanate (AUGMENTIN) 875-125 MG per tablet; Take 1 tablet by mouth 2 times daily for 10 days Dispense: 20 tablet; Refill: 0 - benzonatate (TESSALON) 200 MG capsule; Take 1 capsule (200 mg) by mouth 3 times daily as needed for cough Dispense: 21 capsule; Refill: 0 Risks, benefits and alternatives were discussed with patient. Agreeable to the plan of care. Gina Bautista PA-C [facility] documented in this encounter Nursing Notes Monica Tony CMA - 07/27/2015 8:57 AM CDT Chief Complaint Patient presents with ??? Sinus Problem Initial BP 118/58 mmHg Pulse 101 Temp(Src) 97.6 ??F (36.4 ??C) (Tympanic) Resp 18 Ht 5' 6 (1.676 m) Wt 180 lb (81.647 kg) BMI 29.07 kg/m2 SpO2 100% ? No Estimated body mass index is 29.07 kg/(m^2) as calculated from the following: Height as of this encounter: 5' 6 (1.676 m). Weight as of this encounter: 180 lb (81.647 kg). BP completed using cuff size: regular Patient would like to be notified at the following phone number for results from this visit [phone] OK to leave message Marianne Tony CMA (AAMA) 07/27/2015 8:58 AM documented in this encounter Plan of Treatment Upcoming Encounters Date Type Specialty Care Team Description 01/07/2022 Virtual Visit Endocrinology Natalya Jean MD [address] [place] [address] (Wo rk) documented as of this encounter Visit Diagnoses Diagnosis Acute recurrent maxillary sinusitis - Pr imary Acute maxillary sinusitis documented in this encounter Additional Health Concerns Assessment Noted Time PHQ-9 Depression Total Score: 16 04/26/2015 8:54 AM CS T documented as of this encounter Care Teams Ground Support Equipment Assembler Relationship Specialty Start Date End Date Gina Bautista, PCP - General Physician Fire Lookout 5 09/03/21 [place] [address] [place] [address] Gina Bautista, PCP - Assigned PCP 01/12/15 05/11/18 PA-C [address] [place] [address] Gina Bautista, Physician Fire Lookout 01/31/15 PA-C [address] [place] [address] Gina Bautista, Assigned PCP 01/12/15 PA-C [address] [place] [address] documented as of this encounter
--- OUTSIDE RECORDS SUMMARY | 2021-10-15 08:09 | XMS_ITS | Encounter Summary ---
:1985 Author Organization [facility] Address [address] [place] [address]. [place] [address] Care Team Providers Name Role Phone Gina Bautista PA-C Primary Care Provider [phone] Gina Bautista PA-C Unavailable [phone] Gina Bautista PA-C Unavailable [phone] Gina Bautista PA-C Unavailable [phone] Reason for Visit Reason Onset Date Comments Patient Request for Note/Letter 04/26/2015 Encounter Details Date Type Department Care Team Description 04/26/2015 Telephone [facility] Gina Bautista Request for Clinic Jigna Vance PA-C Note/Letter [address] [address] [address] [place] [facility] [place] [address] [address] [phone] Social History Tobacco Use Types Packs/Day Years Used Date Never Smoker Smokeless Tobacco: Never Used Alcohol Use Standard Drinks/Week Comments Yes 0 (1 standard drink = 0.6 oz pure alcoho l) Sex Assigned at Date Recorded Not on file documented as of this encounter Miscellaneous Notes Telephone Encounter - Gina Bautista PA-C - 04/27/2015 8:14 AM SOCIAL DIRECTOR Note for patient provided for missed work, given to Meg. Gina Bautista PA-C AL DIRECTOR Telephone Encounter - Irma Boggs, RN - 04/26/2015 8:22 AM CST Patient seen 04/25 by pcp for thyroid and stress issues. Patient states missed work that night due toextreme fatigue. Works overnight shifts. Is requesting note from pcp for work covering absence 04/25. Did discuss with patient about FMLA if this would be a continuing issue. Requesting provider opinionon whether to investigate FMLA further. Would like note in meantime. Patient aware pcp in office Thursday. Irma Boggs RN AL DIRECTOR documented in this encounter Plan of Treatment Upcoming Encounters Date Type Specialty Care Team Description 01/07/2022 Virtual Visit Endocrinology Natalya Jean MD [address] [place] [address] (Wo rk) documented as of this encounter Visit Diagnoses Not on filedocumented in this encounter Additional Health Concerns Assessment Noted Time PHQ-9 Depression Total Score: 16 04/26/2015 8:54 AM CS T documented as of this encounter Care Teams Business Area Manager Relationship Specialty Start Date End Date Gina Bautista, PCP - General Physician Senior Mainframe Developer 5 09/03/21 PA-C [address] [place] [address] Gina Bautista, PCP - Assigned PCP 01/12/15 05/11/18 PA-C [address] [place] [address] Gina Bautista, Physician Senior Mainframe Developer 01/31/15 [place] [address] [place] [address] Gina Bautista, Assigned PCP 01/12/15 [place] [address] [place] [address] documented as of this encounter
--- OUTSIDE RECORDS SUMMARY | 2021-10-15 08:09 | XMS_ITS | Encounter Summary ---
:1985 Author Organization [facility] Address [address] [place] [address]. [place] [address] Care Team Providers Name Role Phone Gina Bautista PA-C Primary Care Provider [phone] Gina Bautista PA-C Unavailable [phone] Gina Bautista PA-C Unavailable [phone] Gina Bautista PA-C Unavailable [phone] Reason for Visit Reason Onset Date Comments Refill Request 04/14/2017 Encounter Details Date Type Department Care Team Description 04/14/2017 Telephone [facility] Lyle Bautista Refill Request Lucia Vance PA-C [address] [address] [place] [address] [place] [address] [phone] (Wo rk) Social History Tobacco Use Types Packs/Day Years Used Date Never Smoker Smokeless Tobacco: Never Used Alcohol Use Standard Drinks/Week Comments Yes 0 (1 standard drink = 0.6 oz pure alcoho l) Sex Assigned at Date Recorded Not on file documented as of this encounter Miscellaneous Notes Telephone Encounter - Panchito Gandhi - 04/15/2017 4:52 PM CST Called and talked to pt, notified rx sent to pharmacy. Will send reminder call to schedule lab work in 6-8 weeks. Panchito Gandhi CMA (AAMA) D ANIMAL VETERINARIAN Telephone Encounter - Gina Bautista PA-C - 04/14/2017 12:48 PM MIXED ANIMAL VETERINARIAN Lab orders futured and rx sent to pharmacy. Please notify patient should schedule lab only visit in 6-8 weeks, will check TSH and Vit D. Gina Bautista PA-C D ANIMAL VETERINARIAN documented in this encounter Plan of Treatment Upcoming Encounters Date Type Specialty Care Team Description 01/07/2022 Virtual Visit Endocrinology Natalya Jean MD [address] [place] [address] (Wo rk) documented as of this encounter Visit Diagnoses Diagnosis 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 - Primary Vitamin D deficiency Unspecified vitamin D deficiency documented in this encounter Additional Health Concerns Assessment Noted Time PHQ-9 Depression Total Score: 9 02/19/2017 2:07 PM MIXED ANIMAL VETERINARIAN documented as of this encounter Care Teams Supervisor Fish Hatchery Relationship Specialty Start Date End Date Gina Bautista, PCP - General Physician Coiled Coil Inspector 5 09/03/21 [place] [address] [place] [address] Gina Bautista, PCP - Assigned PCP 01/12/15 05/11/18 [place] [address] [place] [address] Gina Bautista, Physician Coiled Coil Inspector 01/31/15 [place] [address] [place] [address] Gina Bautista, Assigned PCP 01/12/15 [place] [address] [place] [address] documented as of this encounter
--- OUTSIDE RECORDS SUMMARY | 2021-10-15 08:09 | XMS_ITS | Encounter Summary ---
:1985 Author Organization [facility] Address [address] [place] [address]. [place] [address] Care Team Providers Name Role Phone Gina Bautista PA-C Primary Care Provider [phone] Gina Bautista PA-C Unavailable [phone] Gina Bautista PA-C Unavailable [phone] Gina Bautista PA-C Unavailable [phone] Reason for Visit Reason Comments Medication Refill Encounter Details Date Type Department Care Team Description 03/22/2017 Refill [facility] Lyle Bautista Medication Refill Lucia Vance PA-C [address] [address] [address] [place] [id number] [phone] [place] [address] [phone] (Wo rk) Social History Tobacco Use Types Packs/Day Years Used Date Never Smoker Smokeless Tobacco: Never Used Alcohol Use Standard Drinks/Week Comments Yes 0 (1 standard drink = 0.6 oz pure alcoho l) Sex Assigned at Date Recorded Not on file documented as of this encounter Miscellaneous Notes Telephone Encounter - Violette Archer - 04/06/2017 3:23 PM CST Appointment scheduled GEMENT ENGINEER Telephone Encounter - Panchito Gandhi - 04/03/2017 10:43 AM CST 2nd attempt, LM to call back. Needs non-fasting lab only apt. Panchito Gandhi CMA (AAKY) GEMENT ENGINEER Telephone Encounter - Donya Damon - 03/26/2017 11:50 AM CST 1st attempt LVM to call back to make an appt GEMENT ENGINEER Telephone Encounter - Yvette Negrete RN - 03/25/2017 12:18 PM ENGAGEMENT ENGINEER Medication is being filled for 1 time refill only due to: Patient needs labs recheck on Vitamin D level. Call to schedule lab only appointment, future order previously placed. Kim Negrete RN GEMENT ENGINEER Telephone Encounter - Kaye Gr - 03/23/2017 9:36 AM CST vitamin D (ERGOCALCIFEROL) 37562 UNIT capsule Last Written Prescription Date: 12/22/2016 Last Fill Quantity: 12, # refills: 0 Last Office Visit: 02/22/2017 Future Office visit: Next 5 appointments (look out 90 days) Apr 24, 2017 2:00 PM ENGAGEMENT ENGINEER Return Visit with Lisa Lopez LP [facility] [address] [facility] [address] May 08, 2017 2:00 PM ENGAGEMENT ENGINEER Return Visit with Lisa Lopez LP [facility] [address] [facility] [address] May 22, 2017 2:00 PM CDT Return Visit with Lisa Lopez LP [facility] [address] [facility] [phone] Routing refill request to provider for review/approval because: Drug not on the [facility], [facility] or Health refill protocol or controlled substance GEMENT ENGINEER documented in this encounter Plan of Treatment Upcoming Encounters Date Type Specialty Care Team Description 01/07/2022 Virtual Visit Endocrinology Natalya Jean MD [address] [place] [address] (Wo rk) documented as of this encounter Visit Diagnoses Diagnosis Vitamin D deficiency Unspecified vitamin D deficiency documented in this encounter Additional Health Concerns Assessment Noted Time PHQ-9 Depression Total Score: 9 02/19/2017 2:07 PM ENGAGEMENT ENGINEER documented as of this encounter Care Teams Secure Software Assessor Relationship Specialty Start Date End Date Gina Bautista, PCP - General Physician Custom Bookbinder 5 09/03/21 PA-C [address] [place] [address] Gina Bautista, PCP - Assigned PCP 01/12/15 05/11/18 PA-C [address] [place] [address] Gina Bautista, Physician Custom Bookbinder 01/31/15 PA-C [address] [place] [address] Gina Bautista, Assigned PCP 01/12/15 PA-C [address] [place] [address] documented as of this encounter
--- OUTSIDE RECORDS SUMMARY | 2021-10-15 08:09 | XMS_ITS | Encounter Summary ---
:1985 Author Organization [facility] Address [address] [place] [address]. [place] [address] Care Team Providers Name Role Phone Gina Bautista PA-C Primary Care Provider [phone] Gina Bautista PA-C Unavailable [phone] Gina Bautista PA-C Unavailable [phone] Gina Bautista PA-C Unavailable [phone] Reason for Visit Reason Comments Urgent Care URI Colds x3-4- facial pain and pressure, sinus pressure, MAK, achy lymphnofe, L ear pain- unable to hear f rom L ear. Encounter Details Date Type Department Care Team Description 02/22/2017 Office Visit [facility] Johny Puga, Acute sinusitis with Urgent Care Ferny gage MD symptoms greater than [address] [address] [address] 10 days (Primary Dx) [place] [address] [phone] Social History Tobacco Use Types Packs/Day Years Used Date Never Smoker Smokeless Tobacco: Never Used Alcohol Use Standard Drinks/Week Comments Yes 0 (1 standard drink = 0.6 oz pure alcoho l) Sex Assigned at Date Recorded Not on file documented as of this encounter Last Filed Vital Signs Vital Sign Reading Time Taken Comments Blood Pressure 108/62 02/22/2017 11:59 AM ROOM SERVICE CLERK Pulse 61 02/22/2017 11:59 AM ROOM SERVICE CLERK Temperature 36.7 ??C (98.1 ??F) 02/22/2017 11:59 AM ROOM SERVICE CLERK Respiratory Rate - - Oxygen Saturation 100% 02/22/2017 11:59 AM ROOM SERVICE CLERK Inhaled Oxygen Concentration - - Weight - - Height - - Body Mass Index - - documented in this encounter Progress Notes Johny Puga MD - 02/22/2017 12:00 PM CST SUBJECTIVE: Carley Hernandez is a 31 year old female patient complaining of could then sinus symptoms for 4 week(s). OBJECTIVE: The patient appears alert and mild distress. EARS: External ears normal. Canals clear. TM's normal. NOSE/SINUS: positive findings: Erythematous and congested bilaterally left has significant purulent appearing drainage Sinus palpation: Maxillary sinus tender to palpation THROAT: moderate erythema NECK:positive findings: moderate anterior cervical nodes CHEST: Clear ASSESSMENT: Acute Sinusitis PLAN: See orders. In addition, I have suggested that the patient Push fluids. SERVICE CLERK documented in this encounter Nursing Notes Nury Nation CMA - 02/22/2017 12:00 PM CST Images from the original note were not included. Chief Complaint Patient presents with ??? Urgent Care ??? URI Colds x3-4- facial pain and pressure, sinus pressure, MAK, achy lymphnofe, L ear pain- unable to hear from L ear. Initial BP 108/62 (BP Location: Right arm, Patient Position: Chair, Cuff Size: Adult Regular) Pulse 61 Temp 98.1 ??F (36.7 ??C) (Oral) SpO2 100% Estimated body mass index is 28.21 kg/(m^2) as calculated from the following: Height as of 12/19/16: 5' 6 (1.676 m). Weight as of 01/27/17: 174 lb 12.8 oz (79.3 kg). Medication Reconciliation: complete Nury Nation CMA (AASANDRA) SERVICE CLERK documented in this encounter Plan of Treatment Upcoming Encounters Date Type Specialty Care Team Description 01/07/2022 Virtual Visit Endocrinology Natalya Jean MD [address] [place] [address] (Wo rk) documented as of this encounter Visit Diagnoses Diagnosis Acute sinusitis with symptoms greater th an 10 days - Primary Acute sinusitis, unspecified documented in this encounter Additional Health Concerns Assessment Noted Time PHQ-9 Depression Total Score: 9 02/19/2017 2:07 PM ROOM SERVICE CLERK documented as of this encounter Care Teams Income Tax Consultant Relationship Specialty Start Date End Date Gina Bautista, PCP - General Physician Management Rep 5 09/03/21 PA-C [id number] [address] [id number] Gina Bautista, PCP - Assigned PCP 01/12/15 05/11/18 PA-C [id number] [address] [id number] Gina Bautista, Physician Management Rep 01/31/15 PA-C [id number] [address] [id number] Gina Bautista, Assigned PCP 01/12/15 PA-C [id number] [address] [id number] documented as of this encounter
--- OUTSIDE RECORDS SUMMARY | 2021-10-15 08:09 | XMS_ITS | Encounter Summary ---
:1985 Author Organization [facility] Address [address] [place] [address] Care Team Providers Name Role Phone Gina Bautista PA-C Primary Care Provider [phone] Gina Bautista PA-C Unavailable [phone] Encounter Details Date Type Department Care Team Description 08/06/2020 Records - [facility] HE CONVERSION Provider, Histor ical Social History Tobacco Use Types Packs/Day Years [...] Visit Endocrinology Natalya Jean MD [address] [place] [id number] (Wo rk) documented as of this encounter Procedures Procedure Name Priority Date/Time Associated Diagnosis Comme nts US ABDOMEN COMPLETE Routine 07/28/2007 12:00 AM R esults for this CDT procedure are i n the results section. XR CHEST 2 VW Routine 07/28/2007 12:00 AM Results for this CDT procedure are i n the results section. documented in this encounter Results US Abdomen Complete (07/28/2007 12:00 AM CDT) Anatomical Region Laterality Modality Abdomen/Pelvis Other Specimen (Source) Anatomical Location Collection Method / Collectio n Time Received Time / Laterality Volume Narrative 07/28/2007 12:00 AM CDT See Historical Hospital Medical Record f or documentation Procedure Note Provider, Historical - 08/06/2020Formatt ing of this note might be different from the original. See Historical Hospital Medical Record f or documentation Historical Provider IMG US ORDERABLES XR Chest 2 Views (07/28/2007 12:00 AM CDT) Anatomical Region Laterality Modality Chest Digital Radiography Specimen (Source) Anatomical Location Collection Method / Collectio n Time Received Time / Laterality Volume Narrative 07/28/2007 12:00 AM CDT See Historical Hospital Medical Record f or documentation Procedure Note Provider, Historical - 08/06/2020Formatt ing of this note might be different from the original. See Historical Hospital Medical Record f or documentation Historical Provider IMG DIAGNOSTIC IMAGING ORDER AL documented in this encounter Visit Diagnoses Not on filedocumented in this encounter Additional Health Concerns Assessment Noted Time PHQ-9 Depression Total Score: 10 05/09/2017 8:01 AM CS T documented as of this encounter Care Teams Metal Box Maker Relationship Specialty Start Date End Date Gina Bautista PA-C PCP - General Physician Life Insurance Sales 01/31/15 09/03/21 [id number] [address] [id number] Gina Bautista PA-C Physician Life Insurance Sales 01/31/15 [id number] [address] [id number] documented as of this encounter
--- OUTSIDE RECORDS SUMMARY | 2021-10-15 08:09 | XMS_ITS | Encounter Summary ---
:1985 Author Organization [facility] Address [address] [place] [address]. [place] [address] Care Team Providers Name Role Phone Gina Bautista PA-C Primary Care Provider [phone] Gina Bautista PA-C Unavailable [phone] Gina Bautista PA-C Unavailable [phone] Gina Bautista PA-C Unavailable [phone] Reason for Visit Mental Health Outpatient (Routine) - Closed Specialty Diagnoses / Procedures Referred By Contact Refer red To Contact Gina Bautista [facility] [id number] [place] [phone] [place] [address] [place] [address] Phone: Fax: Referral ID Status Reason Start Date Expiration Date Visits Requ ested Visits Authorized [facility] Closed 01/14/2017 01/14/2018 1 52 Encounter Details Date Type Department Care Team Description 02/06/2017 Office Visit [facility] Lisa Lopez LP Anxiety (Primary Dx) Services [place] [id number] [facility] [address] [place] [phone] Social History Tobacco Use Types Packs/Day Years Used Date Never Smoker Smokeless Tobacco: Never Used Alcohol Use Standard Drinks/Week Comments Yes 0 (1 standard drink = 0.6 oz pure alcoho l) Sex Assigned at Date Recorded Not on file documented as of this encounter Progress Notes MichaelbaltazarLisaTEODORA - 02/06/2017 2:23 PM CST Images from the original note were not included. Adult Intake Structured Interview Standard Diagnostic Assessment CLIENT'S NAME: Carley Hernandez : 1985 ACCT. NUMBER: [id number] DATE OF SERVICE: 02/06/17 Identifying Information: Client is a 31 year old, , female. Client was referred for counseling by self. 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 Client attended the session alone. Client's Statement of Presenting Concern: Client reports the reason for seeking therapy at this time as help with anxiety. Client stated that her symptoms have resulted in the following functional impairments: relationship(s) and self-care History of Presenting Concern: Client reports that these problem(s) began: depression as early as 7th. Client has attempted to resolve these concerns in the past through access her support. Client reports that other professional(s) are not involved in providing support / services. Social History: Client reported she grew up in [place], [place]. They were the second born of 2 children. This is an intact family and parents remain . Client reported that her childhood was fairly normal. Client described her current relationships with family of origin as ok. Client reported a history of 1 marriage for 5 and together for 10 and 1 divorce. Client has been for 3 months. Client reported having 0 children. Client identified some stable and meaningful social connections. Client reported that she has not been involved with the legal system. * Client's highest education level was some college. Client did identify the following learning problems: attention and concentration. There are no ethnic, cultural or lutheran factors that may be relevant for therapy. Client identified her preferred language to be Mongolian. Client reported she does not need the assistance of an cake winder or other support involved in therapy. Modifications will not be used to assist communication in therapy. Client did not serve in the . Client reports family history includes Family History Negative in her father and mother. Mental Health History: Client reported a family history of mental health issues for mother and grandmother, (mother with bi-polar/ schizophrenia). Client previously received the following mental health diagnosis: Anxiety andDepression. Client has not received mental health services in the past. Hospitalizations: None. Client is not currently receiving any mental health services. Chemical Health History: Client reported no family history of chemical health issues. Client has not received chemical dependency treatment in the past. Client is not currently receiving any chemical dependency treatment. Client reports no problems as a result of their drinking / drug use. Client Reports: Client reports using alcohol 1 times per month and has 1 varies at a time. Client first started drinking at age 27. Client denies using tobacco. Client denies using marijuana. Client reports using caffeine 1 times per week and drinks 1 at a time. Client started using caffeineat age 18. Client denies using street drugs. Client denies the non-medical use of prescription or over the counter drugs. CAGE: None of the patient's responses to the CAGE screening were positive / Negative CAGE score Based on the negative Cage-Aid score and clinical interview there are not indications of drug or alcohol abuse. Discussed the general effects of drugs and alcohol on health and well-being. Therapist gave client printed information about the effects of chemical use on her health and well being. Significant Losses / Trauma / Abuse / Neglect Issues: Divorce 1 child was in the NICU Issues of possible neglect are not present. Medical Issues: Client has had a physical exam to rule out medical causes for current symptoms. Date of last physical exam was greater than a year ago and client was encouraged to schedule an exam with PCP. The clienthas a [facility] Primary Care Provider, who is named Gina Bautista.. The client reports nothaving a psychiatrist. Client reports the following current medical concerns: see below. The client denies the presence of chronic or episodic pain. There are not significant nutritional concerns. Did have successful weight loss surgery. Client reports current meds as: Current Outpatient Prescriptions Medication Sig ??? cyanocobalamin (VITAMIN B12) 1000 MCG/ML injection Inject 1 mL (1,000 mcg) into the muscle every30 days ??? vitamin D (ERGOCALCIFEROL) 70437 UNIT capsule Take 1 capsule (50,000 Units) by mouth once a week ??? levothyroxine (SYNTHROID/LEVOTHROID) 50 MCG tablet Take 1 tablet (50 mcg) by mouth daily ??? ferrous sulfate (IRON) 325 (65 FE) MG tablet Take 1 tablet (325 mg) by mouth 2 times daily ??? levonorgestrel (MIRENA) 20 MCG/24HR IUD 1 each by Intrauterine route once No current facility-administered medications for this visit. Client Allergies: No Known Allergies Medical History: Past Medical History: Diagnosis Date ??? Adjustment disorder with depressed mood 02/05/2015 ??? Hypothyroidism due to acquired atrophy of thyroid 02/05/2015 ??? Overweight 12/19/2016 ??? S/P gastric bypass 2007 Medication Adherence: N/A - Client does not have prescribed psychiatric medications. Client was provided recommendation to follow-up with prescribing physician. Mental Status Assessment: Appearance: Appropriate Eye Contact: Good Psychomotor Behavior: Normal Attitude: Cooperative Orientation: All Speech Rate / Production: Normal Volume: Normal Mood: Anxious Normal Affect: Appropriate Worrisome Thought Content: Clear Thought Form: Coherent Logical Insight: Good Review of Symptoms: Depression: Sleep Interest Guilt Energy Concentration Irritability [place]: No symptoms Psychosis: No symptoms Anxiety: Worries Nervousness Panic: Palpitations Tremors Shortness of Breath Post Traumatic Stress Disorder: Increased Arousal Obsessive Compulsive Disorder: No symptoms Eating Disorder: No symptoms Oppositional Defiant Disorder: No symptoms ADD / ADHD: No symptoms Conduct Disorder: No symptoms Safety Assessment: History of Safety Concerns: Client denied a history of suicidal ideation. Client denied a history of suicide attempts. Client denied a history of homicidal ideation. Client denied a history of self-injurious ideation and behaviors. Client denied a history of personal safety concerns. Client denied a history of assaultive behaviors. Current Safety Concerns: Client denies current suicidal ideation. Client denies current homicidal ideation and behaviors. Client denies current self-injurious ideation and behaviors. Client denies current concerns for personal safety. Client reports there are no firearms in the house. Plan for Safety and Risk Management: A safety and risk management plan has not been developed at this time, however client was given the after-hours number / 911 should there be a change in any of these risk factors. Client's Strengths and Limitations: Client identified the following strengths or resources that will help her succeed in counseling: commitment to health and well being, friends / good social support, family support and intelligence. Client identified the following supports: family and friends. Things that may interfere with the client's success in counseling include: time. Diagnostic Criteria: A. Excessive anxiety and worry about a number of events or activities (such as work or school performance). - Restlessness or feeling keyed up or on edge. - Being easily fatigued. - Difficulty concentrating or mind going blank. - Irritability. - Muscle tension. - Sleep disturbance (difficulty falling or staying asleep, or restless unsatisfying sleep). Functional Status: Client's symptoms have caused and are causing reduced functional status in the following areas: Social / Relational - co-parenting DSM5 Diagnoses: (Sustained by DSM5 Criteria Listed Above) Diagnoses: JUAN MIGUEL Psychosocial & Contextual Factors: difficult co-parenting WHODAS 2.0 (12 item) This questionnaire asks about difficulties due to health conditions. Health conditions include disease or illnesses, other health problems that may be short or long lasting, injuries, mental health oremotional problems, and problems with alcohol or drugs. Think back over the past 30 days and answer these questions, thinking about how much difficulty youhad doing the following activities. For each question, please [place] only one response. S1 Standing for long periods such as 30 minutes? None = 1 S2 Taking care of household responsibilities? Moderate = 3 S3 Learning a new task, for example, learning how to get to a new place? None = 1 S4 How much of a problem do you have joining community activities (for example, festivals, religiousor other activities) in the same way as anyone else can? None = 1 S5 How much have you been emotionally affected by your health problems? Mild = 2 In the past 30 days, how much difficulty did you have in: S6 Concentrating on doing something for ten minutes? Mild = 2 S7 Walking a long distance such as a kilometer (or equivalent)? None = 1 S8 Washing your whole body? None = 1 S9 Getting dressed? None = 1 S10 Dealing with people you do not know? None = 1 S11 Maintaining a friendship? None = 1 S12 Your day to day work? Mild = 2 H1 Overall, in the past 30 days, how many days were these difficulties present? Record number of days 3-5 H2 In the past 30 days, for how many days were you totally unable to carry out your usual activitiesor work because of any health condition? Record number of days 1-2 H3 In the past 30 days, not counting the days that you were totally unable, for how many days did you cut back or reduce your usual activities or work because of any health condition? Record number of days 1-2 Attendance Agreement: Client has signed Attendance Agreement:Yes Collaboration: The client is receiving treatment / structured support from the following professional(s) / service and treatment. Collaboration will be initiated with: primary care physician. Preliminary Treatment Plan: The client reports no currently identified lutheran, ethnic or cultural issues relevant to therapy. Hogshead Mat Inspector services are not indicated. Modifications to assist communication are not indicated. The concerns identified by the client will be addressed in therapy. Initial Treatment will focus on: Anxiety - .. As a preliminary treatment goal, client will [...] teach problem-solving skills and teach stress mangement techniques. Referral to another professional/service is not indicated at this time. A Release of Information is not needed at this time. Report to child / adult protection services was NA. Client will have access to their [facility]' medical record. Lisa Lopez LP February 06, 2017 CONSULTANT documented in this encounter Plan of Treatment Upcoming Encounters Date Type Specialty Care Team Description 01/07/2022 Virtual Visit Endocrinology Natalya Jean MD [address] [place] [address] (Wo rk) documented as of this encounter Visit Diagnoses Diagnosis Anxiety - Primary Anxiety state, unspecified documented in this encounter Additional Health Concerns Assessment Noted Time PHQ-9 Depression Total Score: 7 12/19/2016 3:37 PM CDT documented as of this encounter Care Teams Nut Roaster Relationship Specialty Start Date End Date Gina Bautista, PCP - General Physician Talent Acquisition Partner 5 09/03/21 [place] [id number] [address] [id number] Gina Bautista, PCP - Assigned PCP 01/12/15 05/11/18 PA-C [address] [place] [address] Gina Bautista, Physician Talent Acquisition Partner 01/31/15 PA-C [address] [place] [address] Gina Bautista, Assigned PCP 01/12/15 PA-C [address] [place] [address] documented as of this encounter
--- OUTSIDE RECORDS SUMMARY | 2021-10-15 08:09 | XMS_ITS | Clinical Summary ---
:1985 Author Organization [place] Address [address] [place] [address] Care Team Providers Name Role Phone Gina Bautista PA-C Unavailable [phone] Vidya Espinal APRN CNM Unavailable [phone] [facility] Unavailable Marissa Jean MD Unavailable Violette Bolden CNM Primary Care Provider Allergies No known active allergies Medications Medication Sig Dispensed Refills Start Date End Date Status levonorgestrel 1 each by 1 each 0 01/31/2015 Acti ve (MIRENA) 20 MCG/24HR Intrauterine route IUDIndications: once Removal due 08/04/2018 ferrous sulfate Take 1 tablet (325 60 tablet 2 04/27/2015 Active (IRON) 325 (65 FE) MG mg) by mouth 2 tabletIndications: times daily Iron deficiency anemia, unspecified iron deficiency cefdinir (OMNICEF) Take 1 capsule 20 capsule 0 02/22/2017 Active 300 MG (300 mg) by mouth capsuleIndications: 2 times daily Acute sinusitis with symptoms greater than 10 days fluticasone (FLONASE) [place] 1-2 sprays 1 Bottle 11 02/22/2017 Active 50 MCG/ACT into both nostrils sprayIndications: daily Acute sinusitis with symptoms greater than 10 days vitamin D Take 1 capsule 12 capsule 0 04/14/2017 Act clay[place] (ERGOCALCIFEROL) (50,000 [place]) [place] [address] UNIT mouth once a week capsuleIndications: Lab work needed Vitamin D deficiency levothyroxine Take 1 tablet (75 90 tablet 0 04/14/2017 Active (SYNTHROID/LEVOTHROID mcg) by mouth ) 75 MCG daily tabletIndications: Hypothyroidism due to acquired atrophy of thyroid Active Problems Problem Noted Date Anxiety 02/06/2017 Overweight 12/19/2016 S/P gastric bypass 12/19/2016 Adjustment disorder with depressed mood 02/05/2015 Hypothyroidism due to acquired atrophy of thyroid 01/09 Encounters Date Type Specialty Care Team Description 09/04/2021 Telephone Endocrinology Ted, Appointment MD Marissa 2021 Medical Correspondence Scan, ENDOC RINOLOGY REFERRAL Non-Provider [facility] 2021 Transcribe Orders Provider, Hypothyroi dism Generic External (Primary Dx ) Data 08/08/2021 Medical Correspondence Scan, ENDOC RINOLOGY ORDER Non-Provider [facility] from Last 3 Months Immunizations Name Administration Dates Next Due Influenza Vaccine IM > 6 months Valent IIV4 12/19/2016 (Alfuria,Fluzone) Tdap (Adacel,Boostrix) 03/09/2012 Family History Medical History Relation Comments Family History Negative Father Family History Negative Mother Relation Status Comments Father Mother Social History Tobacco Use Types Packs/Day Years Used Date Never Smoker Smokeless Tobacco: Never Used Alcohol Use Standard Drinks/Week Comments Yes 0 (1 standard drink = 0.6 oz pure alcoho l) Sex Assigned at Date Recorded Not on file Last Filed Vital Signs Vital Sign Reading Time Taken Comments Blood Pressure 108/62 02/22/2017 11:59 AM NEWS EDITOR Pulse 61 02/22/2017 11:59 AM NEWS EDITOR Temperature 36.7 ??C (98.1 ??F) 02/22/2017 11:59 AM NEWS EDITOR Respiratory Rate 15 12/19/2016 2:53 PM CDT Oxygen Saturation 100% 02/22/2017 11:59 AM NEWS EDITOR Inhaled Oxygen Concentration - - Weight 79.3 kg (174 lb 12.8 oz) 01/27/2017 1:05 PM NEWS EDITOR Height 167.6 cm (5' 6) 12/19/2016 2:53 PM CDT Body Mass Index 28.21 12/19/2016 2:53 PM CDT Plan of Treatment Upcoming Encounters Date Type Specialty Care Team Description 01/07/2022 Virtual Visit Endocrinology Natalya Jean MD [address] [place] [address] (Wo rk) Health Maintenance Due Date Last Done Comments ADVANCE CARE PLANNING 1985 ANNUAL REVIEW OF HM ORDERS 1985 COVID-19 Vaccine (#1) 02/20/1988 PREVENTIVE CARE VISIT 12/19/2017 12/19/2016, 04/25/2015 INFLUENZA VACCINE (#1) 2021 01/17/2020, 11/10/2017, 12/19/2016, Additional history exists PHQ-9 02/06/2022 08/07/2021, 05/08/2017, 04/24/2017, Additional history exists HPV TEST 01/16/2023 01/17/2020 PAP 01/16/2023 01/17/2020, 12/19/2016, 08/07/2013 DTAP/TDAP/TD IMMUNIZATION 04/05/2028 04/05/2018, 04/05/2018 , (3 - Td or Tdap) 03/09/2012 HEPATITIS C SCREENING Completed 08/07/2021 HIV SCREENING Completed 08/07/2021 HEPATITIS B IMMUNIZATION Aged Out No long er eligible based on patient 's age to complete this topic IPV IMMUNIZATION Aged Out No longer eligi ble based on patient 's age to complete this topic MENINGITIS IMMUNIZATION Aged Out No longe r eligible based on patient 's age to complete this topic Pneumococcal Vaccine: Aged Out No longer eligible Pediatrics (0 to 5 Years) based on patient's age and At-Risk Patients (6 to to co mplete this topic 64 Years) Procedures Procedure Name Priority Date/Time Associated Comments Diagnosis HEPATITIS C (HIM Routine 08/07/2021 10:30 Results for this EXTERNAL RESULT) AM CDT procedure a re in the results section. THYROID STIMULATING Routine 08/07/2021 10:30 Resu lts for this HORMONE (TSH) AM CDT procedure are in (EXTERNAL RESULT) the result s section. ABSTRACT HIV Routine 08/07/2021 10:30 Results for this AM CDT procedure are i n the results section. HEMOGLOBIN A1C Routine 08/07/2021 9:30 AM Results for this (EXTERNAL RESULT) CDT procedure are in the results section. GONORRHEA (EXTERNAL Routine 08/07/2021 9:29 AM Re sults for this RESULT) CDT procedure are i n the results section. CHLAMYDIA TRACHOMATIS Routine 08/07/2021 9:29 AM Results for this PCR (EXTERNAL RESULT) CDT proced ure are in the results section. LAB RESULT - HIM SCAN 08/07/2021 12:00 AM CDT US IMAGING - HIM SCAN 08/07/2021 12:00 AM CDT PHQ-9 DEPRESSION Routine 08/07/2021 Results for this SCREENING ORDER procedure ar e in the results section. from Last 3 Months Results (ABNORMAL) Thyroid Stimulating Hormone (TSH) (External Result) (08/07/2021 10:30 AM CDT) [facility] gist Method Time Signature TSH (External) 24.700 (H) 0.270 - [place] 4.200 [facility] uIU/mL Specimen (Source) Anatomical Collection Method Collection Time Re ceived Time Location / / Volume Laterality Blood 08/07/2021 10:30 AM CDT [facility] - 08/07/2021 10:30 A M CDT [facility] LAB RESULT Provider Outside LAB - HIM EXTERNAL RESULT Performing Organization Address City/[facility]/ZIP Code Phon e Number [address] [address] ABSTRACT HIV (08/07/2021 10:30 AM CDT) athologist Signature HIV 1&2 EXT Non-Reacti Non-Reacti [facility] Comment: Negative Specimen (Source) Anatomical Collection Method Collection Time Re ceived Time Location / / Volume Laterality Blood 08/07/2021 10:30 AM CDT [facility] - 08/07/2021 10:30 A M CDT [facility] LAB RESULT Provider Outside LAB - IMMUNOLOGY ORDERABLES Performing Organization Address City/[facility]/ZIP [facility] Phon e Number [facility] [address] [place] [address] [phone] Hepatitis C (HIM External Result) (08/07/2021 10:30 AM CDT) Analysis Performed At Patho logist Time Signature Hep C HIM See Scanned [facility] Comment: Negative Specimen (Source) Anatomical Collection Method Collection Time Re ceived Time Location / / Volume Laterality 08/07/2021 10:30 AM CDT [facility] - 08/07/2021 10:30 A M CDT [facility] LAB RESULT Provider Outside LAB - HIM EXTERNAL RESULT Performing Organization Address [facility] Code Phon e Number [address] [address] Hemoglobin A1c (External Result) (08/07/2021 9:30 AM CDT) P athologist Signature Hemoglobin A1C 5.9 <=6.9 % [place] (External) [facility] Specimen (Source) Anatomical Collection Method Collection Time Re ceived Time Location / / Volume Laterality Blood 08/07/2021 9:30 AM CDT [facility] - 08/07/2021 9:30 AM CDT [facility] LAB RESULT Provider Outside LAB - HIM EXTERNAL RESULT Performing Organization Address [facility] Phon e Number [address] [address] Gonorrhea (External Result) (08/07/2021 9:29 AM CDT) Patholo gist Method Time Signature Specimen Vaginal [facility] N Gonorrhea Not Detected Negative [facility] Specimen (Source) Anatomical Collection Method Collection Time Re ceived Time Location / / Volume Laterality 08/07/2021 9:29 AM CDT [facility] - 08/07/2021 9:29 AM CDT [facility] LAB RESULT Provider Outside LAB - HIM EXTERNAL RESULT Performing Organization Address [facility] Phon e Number [address] [address] Chlamydia Trachomatis PCR (External Result) (08/07/2021 9:29 AM CDT) [employer] Method Time Signature Specimen Vaginal [facility] Chlamydia Not Detected Negative [place] Trachomatis [facility] Specimen (Source) Anatomical Collection Method Collection Time Re ceived Time Location / / Volume Laterality 08/07/2021 9:29 AM CDT [facility] - 08/07/2021 9:29 AM CDT [facility] LAB RESULT Provider Outside LAB - HIM EXTERNAL RESULT Performing Organization Address City/[facility]/ZIP [facility] Phon e Number [facility] [address] [place] [address] LAB RESULT - HIM SCAN (08/07/2021 12:00 AM CDT) Specimen (Source) Anatomical Location Collection Method / Collectio n Time Received Time / Laterality Volume 08/07/2021 Narrative This result has an attachment that is no t available. Provider Outside NON-BEAKER LAB TESTING US IMAGING - HIM SCAN (08/07/2021 12:00 AM CDT) Specimen (Source) Anatomical Location Collection Method / Collectio n Time Received Time / Laterality Volume 08/07/2021 Narrative This result has an attachment that is no t available. Provider Outside IMG US ORDERABLES PHQ-9 DEPRESSION SCREENING ORDER (08/07/2021) P athologist Signature PHQ9 SCORE 3 Narrative Tee Ricardo - 08/07/2021 [facility] CLINICS PROGRESS NOT E Provider Outside OTHER from Last 3 Months Insurance Payer Benefit Plan Subscriber ID Effective Phone Address Typ e / Group Dates MEDICA MEDICA CHOICE [id number] 2016-Pres [phone] [phone] [place] [address] BCBS BCBS [facility] [id number] 2021-Pres [phone] [address] Indemnity [address] ent [phone] [place] [address] [facility] [id number] 2016-Pres [address] PPO BEHAVIORAL ent [id number] [place] [address] Care Teams Occupational Safety And Health Manager Relationship Specialty Start Date End Date Violette Bolden CNM PCP - General 09/04/21 [facility] [address] [place] [address] Gina Bautista, Physician Solderer Assembly Repair 01/31/15 [address] [place], [place] [id number] Vidya Espinal APRN CNM Chain Saw Operator 08/21/[address] [place] [id number] Clinic, [facility] 08/21/[address] [address] Marissa Jean MD Hospitalist Endocrinology, 09/04/21 [address] [place] Diabetes, and [address] [place], [place] [phone]
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
--- OUTSIDE RECORDS SUMMARY | 2021-10-15 08:09 | XMS_ITS | Encounter Summary ---
:1985 Author Organization [place] Address [address] [place] [address] Care Team Providers Name Role Phone Gina Bautista PA-C Primary Care Provider [phone] Gina Bautista PA-C Unavailable [phone] Vidya Espinal APRN [facility] Unavailable [facility], [facility] Unavailable Reason for Referral Consultation (Urgent: 3-5 Days) - Pending Review Specialty Diagnoses / Procedures Referred By Contact Refer red To Contact Endocrinology, Diagnoses Hypothyroidism System, Provider Not Diabetes, and In Metabolism Referral ID Status Reason Start Date Expiration Date Visits V isits Requested Authorized [id number] Pending 2021 2022 1 1 Review Scheduling Instructions KENNEDY Israel Encounter Details Date Type Department Care Team Description 2021 Transcribe Orders GENERIC EXTERNAL Provider, Hypoth yroidism DATA DEPARTMENT Generic External (Primary Dx) Data Social History Tobacco Use Types Packs/Day Years [...] Endocrinology Natalya Jean MD [address] [place] [address] (Wo rk) Scheduled Referrals Name Type Priority Associated Diagnoses Order S chedule Adult Endocrinology Referral Urgent: 3-5 Days Hypothyroidism Ex pected: District Court Judge Referral 2 (Approximate), Expires: 2022 documented as of this encounter Visit Diagnoses Diagnosis Hypothyroidism - Primary Unspecified hypothyroidism documented in this encounter Additional Health Concerns Assessment Noted Time PHQ-9 Depression Total Score: 10 05/09/2017 8:01 AM CS T documented as of this encounter Care Teams Nutrition Club Ambassador Relationship Specialty Start Date End Date Gina Bautista, PCP - General Physician Cyber Security 5 09/03/21 PA-C [id number] [place] [address] Gina Bautista, Physician Cyber Security 01/31/15 [address] [address] [place] [address] Vidya Espinal APRN CNKianna Salesperson [employer] 08/21/[address] [place] [id number] [facility], [facility] 08/21/[address] [address] documented as of this encounter
--- OUTSIDE RECORDS SUMMARY | 2021-10-15 08:09 | XMS_ITS | Encounter Summary ---
:1985 Author Organization [place] Address [address] [place] [address]. [place] [address] Care Team Providers Name Role Phone Gina Bautista PA-C Primary Care Provider [phone] Gina Bautista PA-C Unavailable [phone] Viday Espinal APRN [facility] Unavailable [phone] Clinic, [facility] Unavailable Encounter Details Date Type Department Care Team Description 2021 Medical Correspondence [facility] Scan, ENDOCRINOLOGY Health Info Mgmt Non-Provider REFERRAL [address] [address] Social History Tobacco Use Types Packs/Day Years [...] Endocrinology Natalya Jean MD [address] [place], [place] [address] (Wo rk) documented as of this encounter Visit Diagnoses Not on filedocumented in this encounter Additional Health Concerns Assessment Noted Time PHQ-9 Depression Total Score: 10 05/09/2017 8:01 AM CS T documented as of this encounter Care Teams Siding Mechanic Relationship Specialty Start Date End Date Gina Bautista, PCP - General Physician Editor School Photograph 5 09/03/21 [address] [address] [place] [address] Gina Bautista, Physician Editor School Photograph 01/31/15 [address] [address] [place] [id number] Vidya Espinal APRN CNM Consumer Insights Intern 08/21/21 [facility] [address] [place] [phone] [facility] 08/21/[address] [address] documented as of this encounter
--- OUTSIDE RECORDS SUMMARY | 2021-10-15 08:09 | XMS_ITS | Encounter Summary ---
:1985 Author Organization [place] Address [address] [place] [address]. [place] [address] Care Team Providers Name Role Phone Gina Bautista PA-C Primary Care Provider [phone] Michele, Gina Vance PA-C Unavailable [phone] Gina Bautista PA-C Unavailable [phone] Michele, Gina Vance PA-C Unavailable [phone] Encounter Details Date Type Department Care Team Description 11/12/2017 [facility] Lisa Lopez LP Documentation Services [address] [phone] Social History Tobacco Use Types Packs/Day Years Used Date Never Smoker Smokeless Tobacco: Never Used Alcohol Use Standard Drinks/Week Comments Yes 0 (1 standard drink = 0.6 oz pure alcoho l) Sex Assigned at Date Recorded Not on file documented as of this encounter Progress Notes Lisa Lopez LP - 11/12/2017 4:35 PM CDT Images from the original note were not included. Discharge Summary Multiple Sessions Client Name: Carley Jo Date: 1985 Intake / Discharge Date: 02-06-18 / 05-22-17 DSM5 Diagnoses: (Sustained by DSM5 Criteria Listed Above) Diagnoses: JUAN MIGUEL Psychosocial & Contextual Factors: student WHODAS 2.0 (12 item) Score: n/a Presenting Concern: Mood dusruption Reason for Discharge: Client is satisfied with progress Disposition at Time of Last Encounter: Comments: none Risk Management: Client denies a history of suicidal ideation, suicide attempts, self-injurious behavior, homicidal ideation, homicidal behavior and and other safety concerns A safety and risk management plan has not been developed at this time, however client was given the after-hours number / 911 should there be a change in any of these risk factors. Referred To: none Lisa Lopez LP 11/12/2017 documented in this encounter Plan of Treatment Upcoming Encounters Date Type Specialty Care Team Description 01/07/2022 Virtual Visit Endocrinology Natalya Jean MD [address] [place] [address] (Wo rk) documented as of this encounter Visit Diagnoses Not on filedocumented in this encounter Additional Health Concerns Assessment Noted Time PHQ-9 Depression Total Score: 10 05/09/2017 8:01 AM CS T documented as of this encounter Care Teams Staff Development Manager Relationship Specialty Start Date End Date Gina Bautista, PCP - General Physician Concrete Mixing Plant Superintendent 5 09/03/21 PA-C [address] [place] [address] Gina Bautista, PCP - Assigned PCP 01/12/15 05/11/18 PA-C [address] [place] [address] Gina Bautista, Physician Concrete Mixing Plant Superintendent 01/31/15 PA-C [address] [place] [address] Gina Bautista, Assigned PCP 01/12/15 PA-C [address] [place] [address] documented as of this encounter
--- OUTSIDE RECORDS SUMMARY | 2021-10-15 08:09 | XMS_ITS | Encounter Summary ---
:1985 Author Organization [place] [facility] Address [address] [place] [address]. [place] [address] Care Team Providers Name Role Phone Paul Palumbo PA-C Primary Care Provider [phone] Paul Palumbo PA-C Unavailable [phone] Paul Palumbo PA-C Unavailable [phone] Paul Palumbo PA-C Unavailable [phone] Reason for Referral Consultation - Closed Specialty Diagnoses / Procedures Referred By Contact Refer red To Contact Diagnoses Low hemoglobin S/P gastric bypass Vitamin B 12 deficiency Paul Palumbo [facility] [address] [place] [address] [address] [place] [address] Phone: [phone] Fax: Referral ID Status Reason Start Date Expiration Date Visits Requ ested Visits Authorized [id number] Closed 12/24/2016 12/24/2017 1 1 [facility]NAGER [facility]GE - Closed Specialty Diagnoses / Procedures Referred By Contact Refer red To Contact Diagnoses Family planning counseling IUD check up Paul Palumbo [facility] [place] [address] [place] [address] [address] [place] [address] Phone: Referral ID Status Reason Start Date Expiration Date Visits Requ ested Visits Authorized [id number] Closed 12/19/2016 12/19/2017 1 1 Reason for Visit Reason Comments Physical Flu Shot Encounter Details Date Type Department Care Team Description 12/19/2016 Office Visit [facility] Paul Palumbo general medical examination at a health care facility (Primary Dx); Clinic Jigna Vance PA-C 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; [address] Overweight; [address] Adjustment disorder with dep ressed mood; [place] [id number] Low hemoglobin; [id number] S/P gastric bypass; Cervical cancer screening; IUD check up; Family planning counseling; Need for prophy lactic vaccination and inoculation against influenza; Vitamin D defic iency; Vitamin B 12 de ficiency Social History Tobacco Use Types Packs/Day Years Used Date Never Smoker Smokeless Tobacco: Never Used Alcohol Use Standard Drinks/Week Comments Yes 0 (1 standard drink = 0.6 oz pure alcoho l) Sex Assigned at Date Recorded Not on file documented as of this encounter Last Filed Vital Signs Vital Sign Reading Time Taken Comments Blood Pressure 114/60 12/19/2016 2:53 PM CDT Pulse 74 12/19/2016 2:53 PM CDT Temperature 36.7 ??C (98 ??F) 12/19/2016 2:53 PM CDT Respiratory Rate 15 12/19/2016 2:53 PM CDT Oxygen Saturation 100% 12/19/2016 2:53 PM CDT Inhaled Oxygen Concentration - - Weight 78.8 kg (173 lb 11.2 oz) 12/19/2016 2:53 PM CDT Height 167.6 cm (5' 6) 12/19/2016 2:53 PM CDT Body Mass Index 28.04 12/19/2016 2:53 PM CDT documented in this encounter Patient Instructions Patient InstructionsAbby Hernandez LPN - 12/19/2016 2:55 PM CDT Preventive Health Recommendations Female Ages 26 - 39 Yearly exam: See your health care provider every year in order to ??? Review health changes. ??? Discuss preventive care. ??? Review your medicines if you your doctor has prescribed any. Until age 30: Get a Pap test every three years (more often if you have had an abnormal result). After age 30: Talk to your doctor about whether you should have a Pap test every 3 years or have a Pap test with HPV screening every 5 years. You do not need a Pap test if your uterus was removed (hysterectomy) and you have not had cancer. You should be tested each year for STDs (sexually transmitted diseases), if you're at risk. Talk to your provider about how often to have your cholesterol checked. If you are at risk for diabetes, you should have a diabetes test (fasting glucose). Shots: Get a flu shot each year. Get a tetanus shot every 10 years. Nutrition: ??? Eat at least 5 servings of fruits and vegetables each day. ??? Eat whole-grain bread, whole-wheat pasta and brown rice instead of white grains and rice. ??? Talk to your provider about Calcium and Vitamin D. Lifestyle ??? Exercise at least 150 minutes a week (30 minutes a day, 5 days of the week). This will help you control your weight and prevent disease. ??? Limit alcohol to one drink per day. ??? No smoking. ?? Wear sunscreen to prevent skin cancer. ?? See your dentist every six months for an exam and cleaning. documented in this encounter Progress Notes Paul Palumbo PA-C - 12/19/2016 3:09 PM CDT Injectable Influenza Immunization Documentation 1. Is the person to be vaccinated sick today? No 2. Does the person to be vaccinated have an allergy to a component of the vaccine? No 3. Has the person to be vaccinated ever had a serious reaction to influenza vaccine in the past? No 4. Has the person to be vaccinated ever had Guillain-Randhawa?? syndrome? No Form completed by patient TAT Paul Palumbo PA-C - 12/19/2016 2:50 PM CDT SUBJECTIVE: CC: Tasha Phelan is an 31 year old woman who presents for preventive health visit. Physical Annual: Getting at least 3 servings of Calcium per day:: NO Bi-annual eye exam:: Yes Dental care twice a year:: NO Sleep apnea or symptoms of sleep apnea:: None Diet:: Regular (no restrictions) Frequency of exercise:: 2-3 days/week Duration of exercise:: Greater than 60 minutes Taking medications regularly:: Yes Medication side effects:: None Additional concerns today:: YES Wants IUD removed today Today's PHQ-2 Score: PHQ-2 (??1998 Pfizer) 12/19/2016 Q1: Little interest or pleasure in doing things 0 Q2: Feeling down, depressed or hopeless 1 PHQ-2 Score 1 Q1: Little interest or pleasure in doing things Not at all Q2: Feeling down, depressed or hopeless Several days PHQ-2 Score 1 Abuse: Current or Past(Physical, Sexual or Emotional)- No Do you feel safe in your environment - Yes Social History Substance Use Topics ??? Smoking status: Never Smoker ??? Smokeless tobacco: Never Used ??? Alcohol use 0.0 oz/week 0 Standard drinks or equivalent per week The patient does not drink >3 drinks per day nor >7 drinks per week. Reviewed orders with patient. Reviewed health maintenance and updated orders accordingly - Yes Patient Active Problem List Diagnosis ??? Adjustment [...] Outpatient Prescriptions Medication Sig Dispense Refill ??? levonorgestrel (MIRENA) 20 MCG/24HR IUD 1 each by Intrauterine route once 1 each 0 ??? ferrous sulfate (IRON) 325 (65 FE) MG tablet Take 1 tablet (325 mg) by mouth 2 times daily 60 tablet 2 No Known Allergies Mammogram not appropriate for this patient based on age. Pertinent mammograms are reviewed under the imaging tab. History of abnormal Pap smear: NO - age 21-29 PAP every 3 years recommended Reviewed and updated as needed this visit by clinical staff Tobacco Allergies Meds Med Hx Surg Hx Fam Hx Soc Hx Reviewed and updated as needed this visit by Provider History reviewed. No pertinent past medical history. Past Surgical History: Procedure Laterality Date ??? CHOLECYSTECTOMY ??? GASTRIC BYPASS ROS: C: NEGATIVE for fever, chills, concerned about weight I: NEGATIVE for worrisome rashes, moles or lesions E: vision has worsened, has different rx ENT: NEGATIVE for ear, mouth and throat problems- hx of wax impaction R: NEGATIVE for significant cough or SOB B: NEGATIVE for masses, tenderness or discharge CV: NEGATIVE for chest pain, palpitations or peripheral edema GI: NEGATIVE for nausea, abdominal pain, heartburn, or change in bowel habits : NEGATIVE for unusual urinary or vaginal symptoms. Spotting on Mirena, would like removed, planning for more children. Placed July 2013. M: NEGATIVE for significant arthralgias or myalgia N: NEGATIVE for weakness, dizziness or paresthesias P: NEGATIVE for changes in mood or affect OBJECTIVE: BP 114/60 (BP Location: Right arm, Patient Position: Chair, Cuff Size: Adult Regular) Pulse 74 Temp 98 ??F (36.7 ??C) (Oral) Resp 15 Ht 5' 6 (1.676 m) Wt 173 lb 11.2 oz (78.8 kg) SpO2 100% BMI 28.04 kg/m2 EXAM: GENERAL: healthy, alert and no distress EYES: Eyes grossly normal to inspection, PERRL and conjunctivae and sclerae normal HENT: ear canals and TM's normal, nose and mouth without ulcers or lesions NECK: no adenopathy, no asymmetry, masses, or scars and thyroid normal to palpation RESP: lungs clear to auscultation - no rales, rhonchi or wheezes BREAST: normal without masses, tenderness or nipple discharge and no palpable axillary masses or adenopathy CV: regular rate and rhythm, normal S1 S2, no S3 or S4, no murmur, click or rub, no peripheral edemaand peripheral pulses strong ABDOMEN: soft, nontender, no hepatosplenomegaly, no masses and bowel sounds normal (female): normal female external genitalia, normal urethral meatus, vaginal mucosa pink, moist, well rugated, and normal cervix/adnexa/uterus without masses or discharge, no IUD strings visible MS: no gross musculoskeletal defects noted, no edema SKIN: no suspicious lesions or rashes NEURO: Normal strength and tone, mentation intact and speech normal PSYCH: mentation appears normal, affect normal/bright ASSESSMENT/PLAN: 1. Routine general medical examination at a health care facility Labs updated today. 2. Hypothyroidism due to acquired atrophy of thyroid Chronic issue, has been off medication due to insurance issues. Will recheck labs and determine further plan of care. - TSH with free T4 reflex - Comprehensive metabolic panel 3. Overweight Chronic issue, discussed ideal body weight, recommend diet and exercise. - Comprehensive metabolic panel 4. Adjustment disorder with depressed mood Chronic issue, PHQ9/GAD7 updated today, DAP given. Will hold off on medication until other medical issues are fixed. 5. Low hemoglobin Chronic issue, due for lab recheck, done today. Hemoglobin at 7.2, discussed likely related to her gastric bypass. Blood morphology ordered today aswell as ferritin and TIBC. Recommend starting on iron 325mg BID and recheck in 6-8 weeks. May need to see Hematology for iron infusions. If syncope or chest pain, should go to ER, may need to have transfusion. - CBC with platelets - Ferritin - Iron and iron binding capacity 6. S/P gastric bypass - Vitamin D Deficiency - Vitamin B12 7. Cervical cancer screening Updated today, will determine when next due based on results. - Pap imaged thin layer screen reflex to HPV if ASCUS - recommend age 25 - 29 8. IUD check up Patient requesting removal of IUD today, no IUD strings visualized on exam, will refer to OB for removal. - [facility] REFERRAL 9. Family planning counseling Patient interested in future , was high risk in past, had 4 miscarriages. Will refer to MANAGER BR[facility]GE to discuss future conception. - [facility] REFERRAL 10. Need for prophylactic vaccination and inoculation against influenza - FLU VAC, SPLIT VIRUS IM > 3 YO (QUADRIVALENT) [01168] - Vaccine Administration, Initial [60285] COUNSELING: Reviewed preventive health counseling, as reflected in patient instructions reports that she has never smoked. She has never used smokeless tobacco. Estimated body mass index is 28.04 kg/(m^2) as calculated from the following: Height as of this encounter: 5' 6 (1.676 m). Weight as of this encounter: 173 lb 11.2 oz (78.8 kg). Weight management plan: Discussed healthy diet and exercise guidelines and patient will follow up in12 months in clinic to re-evaluate. Counseling Resources: ATP IV Guidelines Pooled Cohorts Equation Calculator Breast Cancer Risk Calculator FRAX Risk Assessment ICSI Preventive Guidelines Dietary Guidelines for Americans, 2009 USDA's MyPlate ASA Prophylaxis Lung CA Screening I spent >50% of 25 minutes in face to face counselling or coordination of care of the patient forthese issues: IUD concerns/family planning, low thyroid, hemoglobin and mood issues. Paul Palumbo PA-C [facility] [place] Answers for HPI/ROS submitted by the patient on 12/19/2016 PHQ-2 Score: 1 documented in this encounter Nursing Notes Abby Hernandez LPN - 12/19/2016 2:50 PM CDT Chief Complaint Patient presents with ??? Physical Initial BP 114/60 (BP Location: Right arm, Patient Position: Chair, Cuff Size: Adult Regular) Pulse 74 Temp 98 ??F (36.7 ??C) (Oral) Resp 15 Ht 5' 6 (1.676 m) Wt 173 lb 11.2 oz (78.8 kg) SpO2 100% BMI 28.04 kg/m2 Estimated body mass index is 28.04 kg/(m^2) as calculated from the following: Height as of this encounter: 5' 6 (1.676 m). Weight as of this encounter: 173 lb 11.2 oz (78.8 kg). Medication Reconciliation: complete documented in this encounter Miscellaneous Notes Addendum Note - Paul Palumbo PA-C - 12/24/2016 7:17 AM CDT Addended by: PAUL PALUMBO on: 12/24/2016 07:17 AM Modules accepted: Orders Addendum Note - Paul Palumbo PA-C - 12/22/2016 1:58 PM CDT Addended by: PAUL PALUMBO on: 12/22/2016 01:58 PM Modules accepted: Orders documented in this encounter Plan of Treatment Upcoming Encounters Date Type Specialty Care Team Description 01/07/2022 Virtual Visit Endocrinology Natalya Jean MD [address] [place] [address] (Wo rk) Scheduled Referrals Name Type Priority Associated Diagnoses Order S chedule [facility] REFERRAL Referral Routine Family planning Ordered: 12/19/2016 counseling IUD check up ONC/HEME ADULT REFERRAL Referral Routine Low hemo globin Ordered: 12/24/2016 S/P gastric bypa ss Vitamin B 12 deficiency documented as of this encounter Procedures Procedure Name Priority Date/Time Associated Diagnosis Comme nts VITAMIN D DEFICIENCY Routine 12/19/2016 3:33 S/P gastric bypas s Results for this SCREENING PM CDT procedure are i n the results section. TSH WITH FREE T4 Routine 12/19/2016 3:33 Hypothyroidism due to Results for this REFLEX PM CDT acquired atrophy of procedur e are in thyroid the results section. T4 FREE Routine 12/19/2016 3:33 Routine general Results f or this PM CDT medical examination at [facility] are in a health care facility the r esults section. RETICULOCYTE COUNT Routine 12/19/2016 3:33 Low hemoglobin Resu lts for this PM CDT procedure are i n the results section. IRON AND IRON BINDING Routine 12/19/2016 3:33 Low hemoglobin R esults for this CAPACITY PM CDT procedure are i n the results section. FERRITIN Routine 12/19/2016 3:33 Low hemoglobin Results fo r this PM CDT procedure are i n the results section. DIFFERENTIAL Routine 12/19/2016 3:33 Routine general Results f or this PM CDT medical examination at [facility] are in a health care facility the r esults section. COMPREHENSIVE Routine 12/19/2016 3:33 Hypothyroidism due to Re sults for this METABOLIC PANEL PM CDT acquired atrophy of [place] are in thyroid the results Overweight section. BLOOD MORPHOLOGY Routine 12/19/2016 3:33 Low hemoglobin Result s for this PATHOLOGIST REVIEW PM CDT procedure are in the results section. VITAMIN B12 Routine 12/19/2016 3:33 S/P gastric bypass Result s for this PM CDT procedure are i n the results section. CBC WITH PLATELETS Routine 12/19/2016 3:33 Low hemoglobin Resu lts for this PM CDT procedure are i n the results section. PAP IMAGED THIN LAYER Routine 12/19/2016 3:05 Cervical cancer Results for this SCREEN PM CDT screening procedure are i n the results section. documented in this encounter Results (ABNORMAL) TSH with free T4 reflex FUTURE 2mo (04/10/2017 2:35 PM DIE BARBER) athologist Signature TSH 10.56 (H) 0.40 - 04/12/2017 [facility] 4.00 mU/L 1:[address] [facility] Specimen Anatomical Collection Method Collection Time Receive d Time (Source) Location / / Volume Laterality Blood specimen 04/10/2017 2:35 PM 018 2:36 (specimen) DIE BARBER PM DIE BARBER Paul Palumbo PA-C LAB - BLOOD ORDERABLES Performing Organization Address City/State/ZIP Code Phon e Number [facility] [address] [place] [address] (ABNORMAL) Vitamin D Deficiency (04/10/2017 2:35 PM DIE BARBER) athologist Signature Vitamin D 13 (L) 20 - 75 04/11/2017 [facility] Deficiency ug/L 11:46 AM [facility] Comment: Season, race, dietary intake, and treatm ent affect the concentration of 68-iclbetd-Lqunjgs D. Values may decreas e during winter [...] specimen 04/10/2017 2:35 PM 018 2:36 (specimen) DIE BARBER PM DIE BARBER Paul Palumbo PA-C LAB - BLOOD ORDERABLES Performing Organization Address City/State/ZIP Code Phon e Number [facility] [address] [place] [address] [facility] T4 free (12/19/2016 3:33 PM CDT) P athologist Signature T4 Free 1.00 0.76 - 1.46 12/20/2016 [facility] ng/dL 1:[address] [facility] Specimen Anatomical Collection Method Collection Time Receive d Time (Source) Location / / Volume Laterality 12/19/2016 3:33 PM 7 3:34 CDT PM CDT Paul Palumbo PA-C LAB - BLOOD ORDERABLES Performing Organization Address City/[facility]/ZIP Code Phon e Number [facility] [address] [place] [address] WBC Differential (12/19/2016 3:33 PM CDT) [facility] gist Method Time Signature Diff Method Automated 12/19/2016 [facility] Method 9:06 PM [facility] % Neutrophils 64.0 % 12/19/2016 [facility] 9:06 PM [facility] % Lymphocytes 25.2 % 12/19/2016 [place] 9:06 PM [facility] % Monocytes 7.7 % 12/19/2016 [place] 9:06 PM [facility] % Eosinophils 2.3 % 12/19/2016 [facility] 9:06 PM [facility] % Basophils 0.5 % 12/19/2016 [place] 9:06 PM [facility] % Immature 0.3 % 12/19/2016 [facility] Granulocytes 9:06 PM [facility] Nucleated RBCs 0 0 /100 12/19/2016 [facility] 9:06 PM [facility] Absolute 4.2 1.6 - 8.3 12/19/2016 [facility] Neutrophil 10e9/L 9:06 PM [facility] Absolute 1.7 0.8 - 5.3 12/19/2016 [facility] Lymphocytes 10e9/L 9:06 PM [facility] Absolute 0.5 0.0 - 1.3 12/19/2016 [facility] Monocytes 10e9/L 9:06 PM [facility] Absolute 0.2 0.0 - 0.7 12/19/2016 [facility] Eosinophils 10e9/L 9:06 PM [facility] Absolute 0.0 0.0 - 0.2 12/19/2016 [facility] Basophils 10e9/L 9:06 PM [facility] Abs Immature 0.0 0 - 0.4 12/19/2016 [facility] Granulocytes 10e9/L 9:06 PM [facility] Absolute 0.0 12/19/2016 [facility] Nucleated RBC 9:06 PM [facility] Anisocytosis Slight 12/19/2016 [facility] 9:06 PM [facility] Ovalocytes Slight 12/19/2016 [facility] 9:06 PM [facility] Microcytes Present 12/19/2016 [facility] 9:06 PM [facility] Platelet Normal 12/19/2016 [facility] Estimate 9:06 PM [facility] Specimen Anatomical Collection Method Collection Time Receive d Time (Source) Location / / Volume Laterality 12/19/2016 3:33 PM 7 4:07 CDT PM CDT Paul Palumbo PA-C LAB - BLOOD ORDERABLES Performing Organization Address City/State/ZIP Code Phon e Number M [facility] [address] [address] [facility] [address] [phone] Reticulocyte Count (12/19/2016 3:33 PM CDT) P athologist Signature % Retic 1.1 0.5 - 2.0 12/19/2016 [place] % 7:25 PM [facility] Absolute Retic 43.0 25 - 95 12/19/2016 [place] 10e9/L 7:25 PM CDT [facility] Specimen Anatomical Collection Method Collection Time Receive d Time (Source) Location / / Volume Laterality Blood specimen 12/19/2016 3:33 PM 017 4:07 (specimen) CDT PM CDT Paul Palumbo PA-C LAB - BLOOD ORDERABLES Performing Organization Address City/State/ZIP Code Phon e Number M [facility] [address] [address] [facility] [address] [phone] Blood Morphology Pathologist Review (12/19/2016 3:33 PM CDT) Component Value Ref Test Analysis Performed Pathologis t Range Method Time At Signature Copath Patient Name: TASHA PHELAN Report MR#: [id number] Specimen #: [id number] Collected: 12/19/2016 Received: 12/22/2016 Reported: 12/22/2016 10:01 Ordering Phy(s): PAUL PALUMBO For improved result formatting, select 'View Enhanced Report Format' under Linked Documents section. TEST(S): Peripheral Smear Morphology FINAL DIAGNOSIS: Peripheral blood morphology: - Microcytic hypochromic anemia, moderate, with elevated RDW . COMMENT: Rule out iron deficiency. ??If iron deficiency is demonstrat ed, diet factors, celiac sprue and increased gastrointestinal and rep roductive systems blood losses should be investigated. ??Other causes of microcytic anemia include thalassemia and hemoglobinopathies. ??Correla tion with clinical findings is recommended. Electronically signed out by: Tanner Fonseca M.D. CLINICAL HISTORY: 31 years old female. ??Indication for peripheral blood morph ology: Anemia. PERIPHERAL BLOOD DATA: Patient Value (Reference Range >18 year old female) 6.4 ?WBC ?(4.0-11.0 x 10*9/L) 3.97 ? RBC ?(3.8-5.2 x 10*12/L) 7.2 ?HGB ?(11.7-15.7 g/dL) 25.5 ? HCT ?(35.0-47.0 %) 64 ? MCV ?(78-100fL) 18.1 ? MCH ?(26.5-33.0 pg) 28.2 ? MCHC ?(31.5-36.5 g/dL) 17.4 ? RDW ?(10.0-15.0 %) 375 ?PLT ?(150-450 x 10*9/L) 1.1 ?Retic ?(0.5-2.0%) PERIPHERAL BLOOD DIFFERENTIAL (Reference ranges >18 year old) Percent 64.0 ?Neutrophils, segmented and bands 25.2 ?Lymphocytes 7.7 ? Monocytes 2.3 ? Eosinophils 0.5 ? Basophils Absolute 4.2 ?Neutrophils, segmented and bands ?(1.6 - 8.3 x 10*9/L) 1.7 ?Lymphocytes ?(0.8 - 5.3 x 10*9/L) 0.5 ?Monocytes ?(0 -1.3 x 10*9/L) 0.2 ?Eosinophils ?(0 - 0.7 x 10*9/L) 0.0 ?Basophils ?(0 - 0.2 x 10*9/L) PERIPHERAL MORPHOLOGY: ERYTHROCYTES: The hemoglobin is recorded as 7.2 g/dL. ??The erythrocytes are decreased, microcytic hypochromic per indices and charac terized by moderate anisopoikilocytosis with microcytes, elliptocytes a nd ovalocytes. ??There is no morphologic evidence of hemolysis. LEUKOCYTES: The white blood cell count is recorded as 6400. ??The differential count is within normal limits. ??The neutrophil s, eosinophils, monocytes and lymphocytes show mature morpholog y. ??There is no evidence of dysplastic changes or blasts. PLATELETS: The platelet count is recorded as 375,000. ??The platelets show normal size and granulation. (Dictated by Tanner Fonseca MD 12-22-2016 @ 10:01 AM). CPT Codes: A: 17233-ZGHC TESTING LAB LOCATION: [facility] [address] [place], [place] ??[address] COLLECTION SITE: Client: ??[facility] Location: ??[facility] (R) Specimen Anatomical Collection Method Collection Time Receive d Time (Source) Location / / Volume Laterality Blood specimen 12/19/2016 3:33 PM 017 7:55 (specimen) CDT AM CDT Paul Palumbo PA-C LAB - BEAKER AP Performing Organization Address City/State/ZIP Code Phon e Number [place] (ABNORMAL) Vitamin B12 (12/19/2016 3:33 PM CDT) athologist Signature Vitamin B12 107 (L) 193 - 986 12/19/2016 [facility] pg/mL 10:23 PM CDT [facility] Specimen Anatomical Collection Method Collection Time Receive d Time (Source) Location / / Volume Laterality Blood specimen 12/19/2016 3:33 PM 017 3:34 (specimen) CDT PM CDT Paul Palumbo PA-C LAB - BLOOD ORDERABLES Performing Organization Address City/State/ZIP Code Phon e Number [phone] [place] [address] (ABNORMAL) Vitamin D Deficiency (12/19/2016 3:33 PM CDT) athologist Signature Vitamin D 17 (L) 20 - 75 12/21/2016 [facility] Deficiency ug/L 3:23 PM CDT [facility] Comment: Season, race, dietary intake, and treatm ent affect the concentration of 90-detojjc-Apkfkwo D. Values may decreas e during winter [...] Location / / Volume Laterality Blood specimen 12/19/2016 3:33 PM 017 3:34 (specimen) CDT PM CDT Paul Palumbo PA-C LAB - BLOOD ORDERABLES Performing Organization Address City/State/ZIP Code Phon e Number [facility] [address] [place], [place] [phone] [place] [address] (ABNORMAL) Comprehensive metabolic panel (12/19/2016 3:33 PM CDT) [facility] gist Method Time Signature Sodium 140 133 - 144 12/20/2016 [facility] mmol/L 12:[address] [facility] Potassium 4.2 3.4 - 5.3 12/20/2016 [place] mmol/L 12:[address] Chloride 110 (H) 94 - 109 12/20/2016 [place] mmol/L 12:[address] Carbon Dioxide 21 20 - 32 12/20/2016 [facility] mmol/L 12:[address] [facility] Anion Gap 9 3 - 14 12/20/2016 [place] mmol/L 12:54 PM CDT [facility] Glucose 85 70 - 99 12/20/2016 [place] mg/dL 12:[address] [facility] Urea Nitrogen 9 7 - 30 12/20/2016 [place] mg/dL 12:[address] [facility] Creatinine 0.75 0.52 - 12/20/2016 [place] 1.04 mg/dL 12:[address] [facility] GFR Estimate >90 >60 12/20/2016 [place] mL/min/1.7 12:54 PM CDT CLINICS m2 [facility] Comment: Non GFR Calc GFR Estimate If >90 >60 mL/min/1.7m2 12/20/2016 12:54 PM [facility] Black T [facility] Comment: GFR Calc Calcium 8.7 8.5 - 10.1 12/20/2016 12:54 PM [facility] mg/dL CDT [facility] Bilirubin Total 0.4 0.2 - 1.3 mg/dL 12/20/2016 12:54 P M [facility]T [facility] Albumin 3.9 3.4 - 5.0 g/dL 12/20/2016 12:54 PM [facility] Protein Total 7.6 6.8 - 8.8 g/dL 12/20/2016 12:54 PM [facility] Alkaline Phosphatase 61 40 - 150 U/L 12/20/2016 1:02 PM [facility] ALT 20 0 - 50 U/L 12/20/2016 12:54 PM [facility]T [facility] AST 15 0 - 45 U/L 12/20/2016 12:54 PM [facility]T [facility] Specimen Anatomical Collection Method Collection Time Receive d Time (Source) Location / / Volume Laterality Blood specimen 12/19/2016 3:33 PM 017 3:34 (specimen) CDT PM CDT Paul Palumbo PA-C LAB - BLOOD ORDERABLES Performing Organization Address City/[facility]/ZIP Code Phon e Number [facility] [address] [place] [address] (ABNORMAL) TSH with free T4 reflex (12/19/2016 3:33 PM CDT) athologist Signature TSH 8.78 (H) 0.40 - 12/20/2016 [facility] 4.00 mU/L 1:[address] [facility] Specimen Anatomical Collection Method Collection Time Receive d Time (Source) Location / / Volume Laterality Blood specimen 12/19/2016 3:33 PM 017 3:34 (specimen) CDT PM CDT Paul Palumbo PA-C LAB - BLOOD ORDERABLES Performing Organization Address City/[facility]/ZIP Code Phon e Number [facility] [address] [place] [address] (ABNORMAL) Iron and iron binding capacity (12/19/2016 3:33 PM CDT) Patholo gist Method Time Signature Iron 10 (L) 35 - 180 12/20/2016 [place] ug/dL 12:[address] [facility] Iron Binding 528 (H) 240 - 430 12/20/2016 [place] Cap ug/dL 12:[address] [facility] Iron Saturation 2 (L) 15 - 46 % 12/20/2016 [facility] Index 12:[address] [facility] Specimen Anatomical Collection Method Collection Time Receive d Time (Source) Location / / Volume Laterality Blood specimen 12/19/2016 3:33 PM 017 3:34 (specimen) CDT PM CDT Paul Palumbo PA-C LAB - BLOOD ORDERABLES Performing Organization Address City/[facility]/ZIP Code Phon e Number [facility] [address] [place] [address] (ABNORMAL) Ferritin (12/19/2016 3:33 PM CDT) athologist Signature Ferritin 2 (L) 12 - 150 12/20/2016 [facility] ng/mL 12:[address] [facility] Specimen Anatomical Collection Method Collection Time Receive d Time (Source) Location / / Volume Laterality Blood specimen 12/19/2016 3:33 PM 017 3:34 (specimen) CDT PM CDT Paul Palumbo PA-C LAB - BLOOD ORDERABLES Performing Organization Address City/[facility]/ZIP Code Phon e Number [facility] [address] [place] [address] (ABNORMAL) CBC with platelets (12/19/2016 3:33 PM CDT) P athologist Signature WBC 6.4 4.0 - 11.0 12/19/2016 [place] 10e9/L 3:43 PM CDT [facility] [place] RBC Count 3.97 3.8 - 5.2 12/19/2016 [place] 10e12/L 3:43 PM CDT [facility] [place] Hemoglobin 7.2 (L) 11.7 - 15.7 12/19/2016 [place] g/dL 3:43 PM CDT [facility] Comment: Critical Value called to and read back b y TO PAUL PALUMBO PAC ON12/19/16 1540 DA Hematocrit 25.5 (L) 35.0 - 47.0 % 12/19/2016 3:43 PM CDT [facility] [place] MCV 64 (L) 78 - 100 fl 12/19/2016 3:43 PM CDT [facility] [place] MCH 18.1 (L) 26.5 - 33.0 pg 12/19/2016 3:43 PM CDT [facility] [place] MCHC 28.2 (L) 31.5 - 36.5 g/dL 12/19/2016 3:43 PM CDT [facility] Comment: Results confirmed by repeat mónica t RDW 17.4 (H) 10.0 - 15.0 % 12/19/2016 3:43 PM [facility] CDT [place] Platelet Count 375 150 - 450 10e9/L 12/19/2016 3:43 PM [facility] CDT [place] Specimen Anatomical Collection Method Collection Time Receive d Time (Source) Location / / Volume Laterality Blood specimen 12/19/2016 3:33 PM 017 3:34 (specimen) CDT PM CDT Paul Palumbo PA-C LAB - BLOOD ORDERABLES Performing Organization Address City/State/ZIP Code Phon e Number [facility] [address] [place] [address] Pap imaged thin layer screen reflex to HPV if ASCUS - recommend age 25 - 29 (12/19/2016 3:05 PM CDT) Component Value Ref Test Analysis Performed At [facility] Range Method Time Signature PAP NIL COPATH Copath Report COPATH Patient Name: TASHA PHELAN MR#: [id number] Specimen #: [id number] Collected: 12/19/2016 Received: 12/22/2016 Reported: 12/23/2016 13:10 Ordering Phy(s): PAUL PALUMBO For improved result formatting, select 'View Enhanced Report Format' under Linked Documents section. SPECIMEN/STAIN PROCESS: Pap imaged thin layer prep screening (Surepath, FocalPoint w ith guided screening) ? Pap-Cyto x 1, Pap with reflex to HPV if ASCUS x 1 SOURCE: Cervical, endocervical ---- Pap imaged thin layer prep screening (Surepath, FocalPoint with guided screening) SPECIMEN ADEQUACY: Satisfactory for evaluation. -Transformation zone component present. CYTOLOGIC INTERPRETATION: Negative for intraepithelial lesion or malignancy Electronically signed out by: MATEUSZ Rodrigez (ASCP) Processed and screened at [facility] CLINICAL HISTORY: Currently not having periods, Intra-Uterine Device, Papanicolaou Test Limitations: ??Cervical cytology is a scre ening test with limited sensitivity; regular screening is critical for cancer prevention; Pap tests are primarily effective for the diagnosis/prevention of squamous cell carcinoma, not adenoca rcinomas or other cancers. 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 Overweight Adjustment disorder with depressed mood Low hemoglobin Anemia, unspecified S/P gastric bypass Bariatric surgery status Cervical cancer screening Screening for malignant neoplasm of the cervix IUD check up Surveillance of previously prescribed in trauterine contraceptive device Family planning counseling Other general counseling and advice for contraceptive management Need for prophylactic vaccination and in oculation against influenza Vitamin D deficiency Unspecified vitamin D deficiency Vitamin B 12 deficiency Other B-complex deficiencies documented in this encounter Additional Health Concerns Assessment Noted Time PHQ-9 Depression Total Score: 7 12/19/2016 3:37 PM CDT documented as of this encounter Care Teams Impregnator Electrolytic Capacitors Relationship Specialty Start Date End Date Paul Palumbo, PCP - General Physician Insurance Job Titles 5 09/03/21 [place] [address] [place] [place], [place] [address] Paul Palumbo, PCP - Assigned PCP 01/12/15 05/11/18 [place] [address] [place], [place] [address] Paul Palumbo, Physician Insurance Job Titles 01/31/15 [place] [address] [place], [place] [address] Paul Palumbo, Assigned PCP 01/12/15 [place] [address] [place] [address] documented as of this encounter
--- OUTSIDE RECORDS SUMMARY | 2021-10-15 08:09 | XMS_ITS | Encounter Summary ---
:1985 Author Organization [place] Address [address] [place] [address]. [place] [address] Care Team Providers Name Role Phone Gina Bautista PA-C Primary Care Provider [phone] Gina Bautista PA-C Unavailable [phone] Gina Bautista PA-C Unavailable [phone] Gina Bautista PA-C Unavailable [phone] Encounter Details Date Type Department Care Team Description 04/27/2015 Telephone [facility] Lyle Bautista [place] PA-C [address] [address] [place] [address] [place] [phone] (Wo rk) Social History Tobacco Use Types Packs/Day Years Used Date Never Smoker Smokeless Tobacco: Never Used Alcohol Use Standard Drinks/Week Comments Yes 0 (1 standard drink = 0.6 oz pure alcoho l) Sex Assigned at Date Recorded Not on file documented as of this encounter Miscellaneous Notes Telephone Encounter - Gina Bautista PA-C - 04/27/2015 8:25 AM RECOVERY MANAGER Spoke with patient regarding labs. Will restart Synthroid 75mcg daily, recheck in 6-8 weeks Discussed low hemoglobin, will have her get labs today and then start iron replacement BID, recheck in 6-8 weeks as well. Discussed remained of labs. Gina Bautista PA-C VERY MANAGER Telephone Encounter - Monica Tony CMA - 04/27/2015 8:20 AM CST Per patient, placed letter at restaurant front manager for patient cone picker Marianne Chavo CAMPOS (AAOR) 04/27/2015 8:21 AM VERY MANAGER Telephone Encounter - Gina Bautista PA-C - 04/27/2015 8:13 AM RECOVERY MANAGER Left Vm for patient, would like to discuss labs results. Gina Bautista PA-C VERY MANAGER documented in this encounter Plan of Treatment Upcoming Encounters Date Type Specialty Care Team Description 01/07/2022 Virtual Visit Endocrinology Natalya Jean MD [address] [place] [address] (Wo rk) documented as of this encounter Visit Diagnoses Not on filedocumented in this encounter Additional Health Concerns Assessment Noted Time PHQ-9 Depression Total Score: 16 04/26/2015 8:54 AM CS T documented as of this encounter Care Teams Market Intelligence Consultant Relationship Specialty Start Date End Date Gina Bautista, PCP - General Physician Commercial Cleaner 5 09/03/21 [place] [address] [place] [id number] Gina Bautista PCP - Assigned PCP 01/12/15 05/11/18 [place] [address] [place] [address] Gina Bautista, Physician Commercial Cleaner 01/31/15 [place] [address] [address] [place], [place] [address] Gina Bautista, Assigned PCP 01/12/15 [place] [address] [address] [place], [place] [phone] documented as of this encounter
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
--- OUTSIDE RECORDS SUMMARY | 2021-10-15 08:09 | XMS_ITS | Encounter Summary ---
:1985 Author Organization [facility] Address [address] [place] [address]. [place] [address] Care Team Providers Name Role Phone Gina Bautista PA-C Primary Care Provider [phone] Oestrfrances, Gina [place] PA-C Unavailable [phone] OestrGina daniels PA-C Unavailable [phone] Oestrfrances, Gina [place] PA-C Unavailable [phone] Encounter Details Date Type Department Care Team Description 06/11/2017 Hospital Pathology [facility] Results MD Brynn CHAR HOUSE SUPERVISOR SPECIALIS TS [address] [facility] [address] [place], [place] [address] (Wo rk) Social History Tobacco Use Types [...] Endocrinology Natalya Jean MD [address] [place], [place] [phone] (Wo rk) documented as of this encounter Procedures Procedure Name Priority Date/Time Associated Diagnosis Comme [facility] SURGICAL PATHOLOGY Routine 06/11/2017 11:30 AM Re sults for this EXAM CDT procedure are i n the results section. documented in this encounter Results Surgical pathology exam (06/11/2017 11:30 AM CDT) Component Value Ref Test Analysis Performed At [facility] Range Method Time Signature Copath Report Patient Name: CARLEY JO MR#: [id number] Specimen #: [id number] Collected: 06/11/2017 Received: 06/11/2017 Reported: 06/12/2017 14:08 Ordering Phy(s): RYNE MONSON For improved result formatting, select 'View Enhanced Report Format' under Linked Documents section. SPECIMEN(S): Products of conception FINAL DIAGNOSIS: Products of conception- - Partly degenerated products of conception present (immatur e chorionic villi and decidua). - Negative for abnormal trophoblastic proliferation or malig andrew. Electronically signed out by: Valerie Braswell M.D. CLINICAL HISTORY: Missed at 10 weeks. ??Absent heartbeat on ultrasoun d on 06-10-17 in office. GROSS: The specimen is received in formalin labeled with the patien t's name, identifying information and products of conception. ??It consists of a disrupted gestational sac admixed with pink rubbery tissue fragments and clotted blood, aggregating to 3.5 x 2 x 1 cm. ??No par ts or translucent vesicles are identified. Insurance Counsel sections are submitted in 2 blocks. ??The rem ainder of the specimen is handled per [facility] POC protocol. (Dictated by: ASHLEY Martinez 06/11/2017 03:17 PM) MICROSCOPIC: Microscopic examination is performed. CPT Codes: A: 96447-MF2, [facility] TESTING LAB LOCATION: [facility] [address] [place] [address] ??[phone] COLLECTION SITE: Client: [facility] Location: R548 (F) Specimen Anatomical Collection Method Collection Time Receive d Time (Source) Location / / Volume Laterality 06/11/2017 11:30 06/11/2017 2:41 AM CDT PM CDT Ryne GUZMÁN - ADENIKE DILLON Performing Organization Address City/State/ZIP Code Phon e Number [place] documented in this encounter Visit Diagnoses Not on filedocumented in this encounter Additional Health Concerns Assessment Noted Time PHQ-9 Depression Total Score: 10 05/09/2017 8:01 AM CS T documented as of this encounter Care Teams Environmental Services Attendant Relationship Specialty Start Date End Date Gina Bautista, PCP - General Physician Cumulative Effects Analyst 5 09/03/21 PA-C [address] [place] [address] Gina Bautista, PCP - Assigned PCP 01/12/15 05/11/18 PA-C 37718 [place], [place] [phone] Gina Bautista, Physician Cumulative Effects Analyst 01/31/15 PA-C 35104 [place] [address] Gina Bautista, Assigned PCP 01/12/15 PA-C 777[address] [place] [address] documented as of this encounter
--- OUTSIDE RECORDS SUMMARY | 2021-10-15 08:09 | XMS_ITS | Encounter Summary ---
:1985 Author Organization [place] Address [address] [place] [address]. [place] [address] Care Team Providers Name Role Phone Gina Bautista PA-C Primary Care Provider [phone] Gina Bautista PA-C Unavailable [phone] Gina Bautista PA-C Unavailable [phone] Gina Bautista PA-C Unavailable [phone] Reason for Visit Reason Onset Date Comments Outreach 05/27/2017 Encounter Details Date Type Department Care Team Description 05/27/2017 Telephone [facility] Lyle Bautista, Outreach [place] [address] [address] [place] [phone] [place] [phone] (Wo rk) Social History Tobacco Use Types Packs/Day Years Used Date Never Smoker Smokeless Tobacco: Never Used Alcohol Use Standard Drinks/Week Comments Yes 0 (1 standard drink = 0.6 oz pure alcoho l) Sex Assigned at Date Recorded Not on file documented as of this encounter Miscellaneous Notes Telephone Encounter - Panchito Gandhi - 05/27/2017 1:20 PM CDT Patient has lab only scheduled 05/29/17. Panchito Gandhi CMA (AAMA) Telephone Encounter - Panchito Gandhi - 05/27/2017 1:19 PM CDT ----- Message from Panchito Gandhi sent at 04/15/2017 4:53 PM GARMENT PARTS CUTTER MACHINE ----- Call pt to schedule lab only in next 2 weeks. Labs pended. Panchito Gandhi CMA (AANC) documented in this encounter Plan of Treatment Upcoming Encounters Date Type Specialty Care Team Description 01/07/2022 Virtual Visit Endocrinology Natalya Jean MD [address] [place] [address] (Wo rk) documented as of this encounter Visit Diagnoses Not on filedocumented in this encounter Additional Health Concerns Assessment Noted Time PHQ-9 Depression Total Score: 10 05/09/2017 8:01 AM CS T documented as of this encounter Care Teams Form Press Operator Relationship Specialty Start Date End Date Gina Bautista, PCP - General Physician Freight Rate Specialist 5 09/03/21 PA-C 35048 [place] [address] Gina Bautista, PCP - Assigned PCP 01/12/15 05/11/18 PA-C 54261 [place] [address] Gina Bautista, Physician Freight Rate Specialist 01/31/15 PA-C 35350 [place] [address] Gina Bautista, Assigned PCP 01/12/15 PA-C 00951 [place] [address] documented as of this encounter
--- OUTSIDE RECORDS SUMMARY | 2021-10-15 08:09 | XMS_ITS | Encounter Summary ---
:1985 Author Organization [facility] Address [address] [place] [address]. [place] [address] Care Team Providers Name Role Phone Gina Bautista PA-C Primary Care Provider [phone] Gina Bautista PA-C Unavailable [phone] Vidya Espinal APRN [employer] Unavailable [phone] Clinic, [facility] Unavailable Encounter Details Date Type Department Care Team Description 08/08/2021 Medical Correspondence [facility] Scan, ENDOCRINOLOGY ORDER Health Info [facility] Non-Provider [facility] [address] [place] [phone] Social History Tobacco Use Types Packs/Day [...] Endocrinology Natalya Jean MD [address] [place], [place] [phone] (Wo rk) documented as of this encounter Visit Diagnoses Not on filedocumented in this encounter Additional Health Concerns Assessment Noted Time PHQ-9 Depression Total Score: 10 05/09/2017 8:01 AM CS T documented as of this encounter Care Teams Entry Level Drafter Relationship Specialty Start Date End Date Gina Bautista, PCP - General Physician Scouring Machine Tender 5 09/03/21 [place] [id number] [place] [place] [address] Gina Bautista, Physician Scouring Machine Tender 01/31/15 [place] [id number] [place] [id number] Vidya Espinal APRN CNM [facility] Up 08/21/21 [facility] [address] [place] [id number] [facility] 08/21/[address] [address] documented as of this encounter
--- OUTSIDE RECORDS SUMMARY | 2021-10-15 08:09 | XMS_ITS | Encounter Summary ---
:1985 Author Organization [place] Address [address] [place] [address]. [place] [address] Care Team Providers Name Role Phone Gina Bautista PA-C Primary Care Provider [phone] Gina Bautista PA-C Unavailable [phone] Gina Bautista PA-C Unavailable [phone] Gina Bautista PA-C Unavailable [phone] Reason for Referral - Closed Specialty Diagnoses / Procedures Referred By Contact Refer red To Contact Diagnoses S/P gastric bypass Gina Bautista, Procedures VITAMIN B12 INJ /1000MCG [place] [address] [place] [id number] Referral ID Status Reason Start Date Expiration Date Visits Requ ested Visits Authorized [id number] Closed 12/29/2016 12/29/2017 1 1 Reason for Visit Reason Comments Imm/Inj starting B 12 injections Encounter Details Date Type Department Care Team Description 12/29/2016 Allied Health/Nurse [facility] Imm /Inj (starting B 12 Visit Clinic [place] injections ) [id number] [address] [place] [id number] Social History Tobacco Use Types Packs/Day Years Used Date Never Smoker Smokeless Tobacco: Never Used Alcohol Use Standard Drinks/Week Comments Yes 0 (1 standard drink = 0.6 oz pure alcoho l) Sex Assigned at Date Recorded Not on file documented as of this encounter Progress Notes Abby Hernandez LPN - 12/29/2016 9:30 AM CDT Pt was given B 12 injection and advised on how to make nurse only visits and will follow up as recommended documented in this encounter Plan of Treatment Upcoming Encounters Date Type Specialty Care Team Description 01/07/2022 Virtual Visit Endocrinology Natalya Jean MD [address] [place] [address] (Wo rk) documented as of this encounter Visit Diagnoses Diagnosis S/P gastric bypass - Primary Bariatric surgery status documented in this encounter Additional Health Concerns Assessment Noted Time PHQ-9 Depression Total Score: 7 12/19/2016 3:37 PM CDT documented as of this encounter Care Teams Commissioning Manager Relationship Specialty Start Date End Date Gina Bautista, PCP - General Physician Sales Development Director 5 09/03/21 PA-C [id number] [address] [place], [place] [phone] Gina Bautista, PCP - Assigned PCP 01/12/15 05/11/18 PA-C [id number] [place] [address] Gina Bautista, Physician Sales Development Director 01/31/15 PA-C [id number] [place] [address] Gina Bautista, Assigned PCP 01/12/15 PA-C [address] [place] [address] documented as of this encounter
--- OUTSIDE RECORDS SUMMARY | 2021-10-15 08:10 | XMS_ITS | Encounter Summary ---
:1985 Author Organization [place] Address [address] [place] [address]. [place] [address] Care Team Providers Name Role Phone Gina Palumbo PA-C Primary Care Provider [phone] Gina Palumbo PA-C Unavailable [phone] Gina Palumbo PA-C Unavailable [phone] Gina Palumbo PA-C Unavailable [phone] Reason for Visit Reason Comments Physical Annual Physical with PAP Encounter Details Date Type Department Care Team Description [facility] with [facility] Clinic Jigna Vance PA-C Overweight; [id number] [address] [address] [address] 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; [address] Adjustment disorder with dep ressed mood; [place] [address] [id number] Iron deficiency anemia, unspecified iron deficiency [id number] Social History Tobacco Use Types Packs/Day Years Used Date Never Smoker Smokeless Tobacco: Never Used Alcohol Use Standard Drinks/Week Comments Yes 0 (1 standard drink = 0.6 oz pure alcoho l) Sex Assigned at Date Recorded Not on file documented as of this encounter Last Filed Vital Signs Vital Sign Reading Time Taken Comments Blood Pressure 126/62 04/25/2015 1:02 PM REVENUE ACCOUNTANT Pulse 80 04/25/2015 1:02 PM REVENUE ACCOUNTANT Temperature 36.6 ??C (97.9 ??F) 04/25/2015 1:02 PM REVENUE ACCOUNTANT Respiratory Rate 16 04/25/2015 1:02 PM REVENUE ACCOUNTANT Oxygen Saturation 100% 04/25/2015 1:02 PM REVENUE ACCOUNTANT Inhaled Oxygen Concentration - - Weight 82.1 kg (181 lb) 04/25/2015 1:02 PM REVENUE ACCOUNTANT Height 167 cm (5' 5.75) 04/25/2015 1:02 PM REVENUE ACCOUNTANT Body Mass Index 29.44 04/25/2015 1:02 PM REVENUE ACCOUNTANT documented in this encounter Patient Instructions Patient InstructionsMonica Tony CMA - 04/25/2015 8:24 AM CST Preventive Health Recommendations Female Ages 26 - [...] six months for an exam and cleaning. ?? NUE ACCOUNTANT documented in this encounter Progress Notes Gina Palumbo PA-C - 04/25/2015 8:24 AM CST SUBJECTIVE: CC: Carley Hernandez is an 29 year old woman who presents for preventive health visit. Patient is not fasting Healthy Habits: ?? Do you get at least three servings of calcium containing foods daily (dairy, green leafy vegetables, etc.)? No ?? Amount of exercise or daily activities, outside of work: Not regularly ?? Problems taking medications regularly No ?? Medication side effects: No ?? Have you had an eye exam in the past two years? yes ?? Do you see a dentist twice per year? no ?? Do you have sleep apnea, excessive snoring or daytime drowsiness?no Other concerns to address: Thyroid Today's PHQ-2 Score: PHQ-2 (??1998 Developed by Drs. Rolando Covarrubias, Magnolia Womack, You Maxwell and colleagues,with an educational kenia from [employer].) 04/25/2015 01/31/2015 Q1: Little interest or pleasure in doing things 0 1 Q2: Feeling down, depressed or hopeless 0 1 PHQ-2 Total Score Interpretation - Positive if 3 or more points; Administer PHQ- 9 if positive 0 2 Abuse: Current or Past(Physical, Sexual or Emotional)- Yes--Not currently a concern Do you feel safe in your environment - Yes History Substance Use Topics ??? Smoking status: Never Smoker ??? Smokeless tobacco: Never Used ??? Alcohol Use: 0.0 oz/week 0 Standard drinks or equivalent per week The patient does not drink >3 drinks per day nor >7 drinks per week. No results for input(s): CHOL, HDL, LDL, TRIG, CHOLHDLRATIO, NHDL in the last 32221 hours. Reviewed orders with patient. Reviewed health maintenance and updated orders accordingly - Yes Mammo Decision Support: Mammogram not appropriate for this patient based on age. Last Mammo:No results found. History of abnormal Pap smear: NO - age 21-29 PAP every 3 years recommended All Histories reviewed and updated in [facility]. ROS: CONSTITUTIONAL:NEGATIVE for fever, chills, + for increased weight which she attributes to her thyroid, + hair falling out more than normal, chin hair is growing in as well I: NEGATIVE for worrisome rashes, moles or lesions E: NEGATIVE for vision changes or irritation ENT: NEGATIVE for ear, mouth and throat problems R: NEGATIVE for significant cough or SOB B: NEGATIVE for masses, tenderness or discharge CV: NEGATIVE for chest pain, palpitations or peripheral edema GI: NEGATIVE for abdominal pain, heartburn, or change in bowel habits, + nausea, + vomiting yesterday female: spotting with Mirena, also bad mood swings around the time of her cycle M: NEGATIVE for significant arthralgias or myalgia N: NEGATIVE for weakness, dizziness or paresthesias PSYCHIATRIC: + emotional and feels some depression with recent life events, + anxiety as well, no SI/HI, was on Celexa in the past, 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 Adjustment [...] Outpatient Prescriptions Medication Sig Dispense Refill ??? citalopram (CELEXA) 20 MG tablet Take 1/2 tablet (10 mg) for 1-2 weeks, then increase to 1 tablet orally daily 30 tablet 0 ??? levonorgestrel (MIRENA) 20 MCG/24HR IUD 1 each by Intrauterine route once 1 each 0 No Known Allergies OBJECTIVE: BP 126/62 mmHg Pulse 80 Temp(Src) 97.9 ??F (36.6 ??C) (Tympanic) Resp 16 Ht 5' 5.75 (1.67 m) Wt 181 lb (82.101 kg) BMI 29.44 kg/m2 SpO2 100% ? No EXAM: GENERAL: healthy, alert and no distress [...] female external genitalia, normal urethral meatus, vaginal mucosa, normal cervix/adnexa/uterus without masses or discharge MS: no gross musculoskeletal defects noted, no edema SKIN: no suspicious lesions or rashes NEURO: Normal strength and tone, mentation intact and speech normal PSYCH: mentation appears normal, affect normal/bright ASSESSMENT/PLAN: 1. Routine general medical examination at a health care facility - LIPID REFLEX TO DIRECT LDL PANEL; Future - CBC with platelets; Future - Comprehensive metabolic panel; Future - TSH with free T4 reflex; Future - UA reflex to Microscopic and Culture Discussed Marjan, will see how she is feeling once thyroid and anx/dep treated and then determine ifneeds to remove for mood concerns. 2. Overweight Will check thyroid and CMP, discussed need to implement diet and exercise. - Comprehensive metabolic panel; Future 3. Hypothyroidism due to acquired atrophy of thyroid Chronic issue, she has been off medication for over 2 years due to insurance issue, will check labs and then determine if medication needs to be restarted. - TSH with free T4 reflex; Future 4. Adjustment disorder with depressed mood Chronic issue, recently worsened, likely coupled with life stress. Will restart Celexa and recheck in 1 month. - citalopram (CELEXA) 20 MG tablet; Take 1/2 tablet (10 mg) for 1-2 weeks, then increase to 1 tabletorally daily Dispense: 30 tablet; Refill: 0 regular exercise healthy diet/nutrition vision screening contraception family planning reports that she has never smoked. She has never used smokeless tobacco. Estimated body mass index is 29.44 kg/(m^2) as calculated from the following: Height as of this encounter: 5' 5.75 (1.67 m). Weight as of this encounter: 181 lb (82.101 kg). Weight management plan: Discussed healthy diet and exercise guidelines and patient will follow up in12 months in clinic to re-evaluate. Counseling Resources: ATP IV Guidelines Pooled Cohorts Equation Calculator Breast Cancer Risk Calculator FRAX Risk Assessment ICSI Preventive Guidelines Dietary Guidelines for Americans, 2010 [employer] Gina Palumbo PA-C [facility] NUE ACCOUNTANT documented in this encounter Nursing Notes Monica Tony CMA - 04/25/2015 1:03 PM CST Chief Complaint Patient presents with ??? Physical Annual Physical with PAP Initial BP 126/62 mmHg Pulse 80 Temp(Src) 97.9 ??F (36.6 ??C) (Tympanic) Resp 16 Ht 5' 5.75(1.67 m) Wt 181 lb (82.101 kg) BMI 29.44 kg/m2 SpO2 100% ? No Estimated body mass index is 29.44 kg/(m^2) as calculated from the following: Height as of this encounter: 5' 5.75 (1.67 m). Weight as of this encounter: 181 lb (82.101 kg). BP completed using cuff size: regular Patient would like to be notified at the following phone number for results from this visit [phone] OK to leave message Marianne Tony CMA (AAMA) 04/25/2015 1:03 PM NUE ACCOUNTANT documented in this encounter Miscellaneous Notes Addendum Note - Gina Palumbo PA-C - 04/27/2015 8:25 AM REVENUE ACCOUNTANT Addended by: GINA PALUMBO on: 04/27/2015 08:25 AM Modules accepted: Orders NUE ACCOUNTANT documented in this encounter Plan of Treatment Upcoming Encounters Date Type Specialty Care Team Description 01/07/2022 Virtual Visit Endocrinology Natalya Jean MD [address] [place] [address] (Wo rk) documented as of this encounter Procedures Procedure Name Priority Date/Time Associated Comments Diagnosis UA MACROSCOPIC WITH Routine 04/25/2015 12:44 Encounter for Res ults for this REFLEX TO MICROSCOPIC PM REVENUE ACCOUNTANT routine adult proce ada are in AND CULTURE physical exam with the resul ts abnormal findings section. documented in this encounter Results (ABNORMAL) Iron and iron binding capacity (04/27/2015 11:50 AM REVENUE ACCOUNTANT) [facility] Method Time Signature Iron 13 (L) 35 - 180 [place] ug/dL [facility] Iron Binding 619 (H) 240 - 430 [place] Cap ug/dL [facility] Iron Saturation 2 (L) 15 - 46 % [place] Index [facility] Specimen Anatomical Collection Method Collection Time Receive d Time (Source) Location / / Volume Laterality Blood specimen 04/27/2015 11:50 6 (specimen) AM REVENUE ACCOUNTANT 11:51 AM REVENUE ACCOUNTANT Gina Palumbo PA-C LAB - BLOOD ORDERABLES Performing Organization Address City/[facility]/ZIP Code Phon e Number [facility] [address] [place] [phone] (ABNORMAL) Ferritin (04/27/2015 11:50 AM REVENUE ACCOUNTANT) athologist Signature Ferritin 2 (L) 12 - 150 [facility] ng/mL [facility] Specimen Anatomical Collection Method Collection Time Receive d Time (Source) Location / / Volume Laterality Blood specimen 04/27/2015 11:50 6 (specimen) AM REVENUE ACCOUNTANT 11:51 AM REVENUE ACCOUNTANT Gina Palumbo PA-C LAB - BLOOD ORDERABLES Performing Organization Address City/[facility]/ZIP Code Phon e Number [facility] [address] [place] [phone] (ABNORMAL) TSH with free T4 reflex (04/26/2015 8:26 AM REVENUE ACCOUNTANT) P athologist Signature TSH 7.92 (H) 0.40 - [facility] 4.00 mU/L [facility] Specimen Anatomical Collection Method Collection Time Receive d Time (Source) Location / / Volume Laterality Blood specimen 04/26/2015 8:26 AM 016 8:27 (specimen) REVENUE ACCOUNTANT AM REVENUE ACCOUNTANT Gina Palumbo PA-C LAB - BLOOD ORDERABLES Performing Organization Address City/State/ZIP Code Phon e Number [facility] [address] [place] [address] (ABNORMAL) Comprehensive metabolic panel (04/26/2015 8:26 AM REVENUE ACCOUNTANT) [facility] gist Method Time Signature Sodium 140 133 - 144 [place] mmol/L [facility] Potassium 4.1 3.4 - 5.3 [place] mmol/L [facility] Chloride 109 94 - 109 [place] mmol/L [facility] Carbon Dioxide 23 20 - 32 [place] mmol/L [facility] Anion Gap 8 3 - 14 [place] mmol/L [facility] Glucose 87 70 - 99 [place] mg/dL [facility] Urea Nitrogen 10 7 - 30 [place] mg/dL [facility] Creatinine 0.74 0.52 - [facility] 1.04 CLINICS mg/dL [facility] GFR Estimate >90 >60 [place] Non GFR Calc mL/min/1. CLINICS 7m2 [facility] GFR Estimate If >90 >60 [place] Black GFR Calc mL/min/1. CLIN ICS 7m2 [facility] Calcium 8.3 (L) 8.5 - [facility] 10.1 CLINICS mg/dL [facility] Bilirubin Total 0.5 0.2 - 1.3 [place] mg/dL [facility] Albumin 3.8 3.4 - 5.0 [place] g/dL [facility] Protein Total 7.4 6.8 - 8.8 [place] g/dL [facility] Alkaline 71 40 - 150 [place] Phosphatase U/L [facility] ALT 19 0 - 50 [place] U/L [facility] AST 14 0 - 45 [facility] U/L [facility] Specimen Anatomical Collection Method Collection Time Receive d Time (Source) Location / / Volume Laterality Blood specimen 04/26/2015 8:26 AM 016 8:27 (specimen) REVENUE ACCOUNTANT AM REVENUE ACCOUNTANT Gina Palumbo PA-C LAB - BLOOD ORDERABLES Performing Organization Address City/[facility] Phon e Number [facility] [address] [place] [address] (ABNORMAL) CBC with platelets (04/26/2015 8:26 AM REVENUE ACCOUNTANT) athologist Signature WBC 4.7 4.0 - 11.0 [place] 10e9/L [facility] RBC Count 4.41 3.8 - 5.2 [place] 10e12/L [facility] Hemoglobin 8.4 (L) 11.7 - 15.7 [place] g/dL [facility] Comment: Results confirmed by repeat mónica t Hematocrit 29.1 (L) 35.0 - 47.0 % [facility] MCV 66 (L) 78 - 100 fl [facility] [place] MCH 19.0 (L) 26.5 - 33.0 pg [facility] MCHC 28.9 (L) 31.5 - 36.5 g/dL [place] [facility] [place] Comment: Results confirmed by repeat mónica t RDW 16.7 (H) 10.0 - 15.0 % [facility] [place] Platelet Count 321 150 - 450 10e9/L [facility] Specimen Anatomical Collection Method Collection Time Receive d Time (Source) Location / / Volume Laterality Blood specimen 04/26/2015 8:26 AM 016 8:27 (specimen) REVENUE ACCOUNTANT AM REVENUE ACCOUNTANT Gina Palumbo PA-C LAB - BLOOD ORDERABLES Performing Organization Address City/[facility]/ZIP Code Phon e Number [facility] [address] [place], [place] [address] LIPID REFLEX TO DIRECT LDL PANEL (04/26/2015 8:26 AM REVENUE ACCOUNTANT) athologist Signature Cholesterol 109 <200 mg/dL [facility] Triglycerides 70 <150 mg/dL [facility] Comment: Fasting specimen HDL Cholesterol 54 >49 mg/dL [place] CLINI CS [facility] LDL Cholesterol Calculated 41 <100 mg/dL FA [facility] Comment: Desirable: <100 mg/dl Non HDL Cholesterol 55 <130 mg/dL [facility] Specimen Anatomical Collection Method Collection Time Receive d Time (Source) Location / / Volume Laterality Blood specimen 04/26/2015 8:26 AM 016 8:27 (specimen) REVENUE ACCOUNTANT AM REVENUE ACCOUNTANT Gina Palumbo PA-C LAB - BLOOD ORDERABLES Performing Organization Address City/State/ZIP Code Phon e Number [facility] [address] [place] [address] UA reflex to Microscopic and Culture (04/25/2015 12:44 PM REVENUE ACCOUNTANT) [facility] gist Method Time Signature Color Urine Yellow [place] [facility] Appearance Urine Clear [place] [facility] Glucose Urine Negative NEG mg/dL [place] [facility] Bilirubin Urine Negative NEG [place] [facility] Ketones Urine Negative NEG mg/dL [place] [facility] Specific [place] 1.025 1.003 - [place] Urine 1.035 [facility] Blood Urine Negative NEG [place] [facility] pH Urine 5.5 5.0 - 7.0 [place] pH [facility] Protein Albumin Negative NEG mg/dL [place] Urine [facility] Urobilinogen 0.2 0.2 - 1.0 [place] Urine EU/dL [facility] Nitrite Urine Negative NEG [place] [facility] Leukocyte Negative NEG [place] Esterase Urine [facility] Source Midstream [place] Urine [facility] Specimen Anatomical Collection Method Collection Time Receive d Time (Source) Location / / Volume Laterality Urine specimen 04/25/2015 12:44 6 (specimen) PM REVENUE ACCOUNTANT 12:45 PM REVENUE ACCOUNTANT Gina Palumbo PA-C LAB - URINE ORDERABLES Performing Organization Address City/State/ZIP Code Phon e Number [facility] [place] [address] [place], [place] [address] documented in this encounter Visit Diagnoses Diagnosis Encounter for routine adult physical exa m with abnormal findings - Primary Overweight 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 Adjustment disorder with depressed mood Iron deficiency anemia, unspecified iron deficiency documented in this encounter Additional Health Concerns Assessment Noted Time PHQ-9 Depression Total Score: 16 04/26/2015 8:54 AM CS T documented as of this encounter Care Teams Sponge Diver Relationship Specialty Start Date End Date Gina Palumbo, PCP - General Physician Wind Up Worker 5 09/03/21 [place] [id number] [address] [address] Gina Palumbo, PCP - Assigned PCP 01/12/15 05/11/18 PA-C [id number] [place], [place] [phone] Gina Palumbo, Physician Wind Up Worker 01/31/15 PA-C [address] [place] [address] Gina Palumbo, Assigned PCP 01/12/15 PA-C [address] [place] [id number] documented as of this encounter
--- OUTSIDE RECORDS SUMMARY | 2021-10-15 08:10 | XMS_ITS | Encounter Summary ---
:1985 Author Organization [place] Address [address] [place] [address]. [place] [address] Care Team Providers Name Role Phone Gina Bautista PA-C Primary Care Provider [phone] Gina Bautista PA-C Unavailable [phone] Gina Bautista PA-C Unavailable [phone] Gina Bautista PA-C Unavailable [phone] Reason for Visit Reason Comments Cough x 3-4 days Derm Problem x 1 day Encounter Details Date Type Department Care Team Description 01/31/2015 Office Visit [facility] Gina Bautista litis and abscess of leg (Primary Dx); Clinic Jigna Vance PA-C Upper respiratory tract infection, unspe cified upper respiratory infection [id number] [address] [address] [facility] [place] [id number] [phone] Social History Tobacco Use Types Packs/Day Years Used Date Never Smoker Smokeless Tobacco: Never Used Alcohol Use Standard Drinks/Week Comments Yes 0 (1 standard drink = 0.6 oz pure alcoho l) Sex Assigned at Date Recorded Not on file documented as of this encounter Last Filed Vital Signs Vital Sign Reading Time Taken Comments Blood Pressure 108/56 01/31/2015 3:14 PM CLINICAL TRAINING COORDINATOR Pulse 82 01/31/2015 3:14 PM CLINICAL TRAINING COORDINATOR Temperature 36.7 ??C (98.1 ??F) 01/31/2015 3:14 PM CLINICAL TRAINING COORDINATOR Respiratory Rate 18 01/31/2015 3:14 PM CLINICAL TRAINING COORDINATOR Oxygen Saturation 99% 01/31/2015 3:14 PM CLINICAL TRAINING COORDINATOR Inhaled Oxygen Concentration - - Weight 82.4 kg (181 lb 9.6 oz) 01/31/2015 3:14 PM CLINICAL TRAINING COORDINATOR Height 167.6 cm (5' 6) 01/31/2015 3:14 PM CLINICAL TRAINING COORDINATOR Body Mass Index 29.31 01/31/2015 3:14 PM CLINICAL TRAINING COORDINATOR documented in this encounter Progress Notes Gina Bautista PA-C - 01/31/2015 3:11 PM CST SUBJECTIVE: Carley Hernandez is a 29 year old female who presents to clinic today for the following health issues: RESPIRATORY SYMPTOMS ?? Duration: x 3-4 days ?? Description nasal congestion, rhinorrhea, facial pain/pressure and cough ?? Severity: moderate ?? Accompanying signs and symptoms: None ?? History (predisposing factors): none ?? Precipitating or alleviating factors: None ?? Therapies tried and outcome: none Patient is here today complaining of sinus pressure and cough and post nasal drip for 3-4 days. She states most recently she has lost her voice. She had mono 1 month ago She is taking no medication for this She admits to dry cough as well as throat pain. Patient also states concerns about possible ingrown hair behind right knee for the past week, since last night area has become red, irritated and warm to the touch. Problem list and histories reviewed & adjusted, as indicated. Additional history: as documented There is no problem list on file for this patient. Past Surgical History Procedure Laterality Date ??? Gastric bypass ??? Cholecystectomy History Substance Use Topics ??? Smoking status: Never Smoker ??? Smokeless tobacco: Never Used ??? Alcohol Use: 0.0 oz/week 0 Not specified per week Family History Problem Relation Age of Onset ??? Family History Negative Mother ??? Family History Negative Father Current Outpatient Prescriptions Medication Sig Dispense Refill ??? levonorgestrel (MIRENA) 20 MCG/24HR IUD 1 each (20 mcg) by Intrauterine route once 1 each 0 ??? sulfamethoxazole-trimethoprim (BACTRIM DS,SEPTRA DS) 800-160 MG per tablet Take 1 tablet by mouth 2 times daily for 7 days 14 tablet 0 No Known Allergies ROS: Constitutional, HEENT, cardiovascular, pulmonary, gi and gu systems are negative, except as otherwise noted. OBJECTIVE: BP 108/56 mmHg Pulse 82 Temp(Src) 98.1 ??F (36.7 ??C) (Tympanic) Resp 18 Ht 5' 6 (1.676 m) Wt 181 lb 9.6 oz (82.373 kg) BMI 29.32 kg/m2 SpO2 99% ? No Body mass index is 29.32 kg/(m^2). GENERAL: healthy, alert and no distress [...] hepatosplenomegaly, no masses and bowel sounds normal MS: no gross musculoskeletal defects noted, no edema SKIN: large 7 cm erythematous rash over posterior right knee, warm to touch Diagnostic Test Results: none ASSESSMENT/PLAN: 1. Cellulitis and abscess of leg New problem, will treat with Bactrim DX BID x 7 days, advised leaving it alone. If redness spreads, fever, chills, or red streaks, instructed patient to f/u in clinic. F/U in clinic if symptoms worsen or do not improve. - sulfamethoxazole-trimethoprim (BACTRIM DS,SEPTRA DS) 800-160 MG per tablet; Take 1 tablet by mouth2 times daily for 7 days Dispense: 14 tablet; Refill: 0 2. Upper respiratory tract infection, unspecified upper respiratory infection New problem, discussed with patient that illness is likely viral in etiology. Recommend rest, fluidsand over the counter medications. Advised follow up if symptoms worsen or do not alleviate or improve. Did discuss calling if not better, will consider abx. Risks, benefits and alternatives were discussed with patient. Agreeable to the plan of care. Gina Bautista PA-C [facility] ICAL TRAINING COORDINATOR documented in this encounter Nursing Notes Monica Tony CMA - 01/31/2015 3:16 PM CST Chief Complaint Patient presents with ??? Cough x 3-4 days ??? Derm Problem x 1 day Initial BP 108/56 mmHg Pulse 82 Temp(Src) 98.1 ??F (36.7 ??C) (Tympanic) Resp 18 Ht 5' 6 (1.676 m) Wt 181 lb 9.6 oz (82.373 kg) BMI 29.32 kg/m2 SpO2 99% ? No Estimated body mass index is 29.32 kg/(m^2) as calculated from the following: Height as of this encounter: 5' 6 (1.676 m). Weight as of this encounter: 181 lb 9.6 oz (82.373 kg). BP completed using cuff size: regular Patient would like to be notified at the following phone number for results from this visit [phone] Marianne Tony CMA (AAMA) 01/31/2015 3:16 PM ICAL TRAINING COORDINATOR documented in this encounter Plan of Treatment Upcoming Encounters Date Type Specialty Care Team Description 01/07/2022 Virtual Visit Endocrinology Natalya Jean MD [address] [place] [address] (Wo rk) documented as of this encounter Visit Diagnoses Diagnosis Cellulitis and abscess of leg - Primary Cellulitis and abscess of leg, except fo ot Upper respiratory tract infection, unspe cified upper respiratory infection documented in this encounter Additional Health Concerns Assessment Noted Time PHQ-9 Depression Total Score: 13 02/01/2015 7:29 AM CS T documented as of this encounter Care Teams Director Of Outside Sales Relationship Specialty Start Date End Date Gina Bautista PCP - General Physician Customer Service Specialist 5 09/03/21 [place]ES [address] [place] [address] Gina Bautista, PCP - Assigned PCP 01/12/15 05/11/18 PA-C [id number] [place] [address] Gina Bautista, Physician Customer Service Specialist 01/31/15 PA-C [address] [place] [address] Gina Bautista, Assigned PCP 01/12/15 PA-C [address] [place] [address] documented as of this encounter
--- OUTSIDE RECORDS SUMMARY | 2021-10-15 08:10 | XMS_ITS | Encounter Summary ---
:1985 Author Organization [place] Address [address] [place] [id number] Care Team Providers Name Role Phone Unavailable Primary Care Provider Unavailable Encounter Details Date Type Department Care Team Description 05/23/2005 Results [facility] Results EMERGENCY [place] [address] [place], [place] [id number] (Wo rk) Social History Tobacco Use Types Packs/Day Years Used Date Never Assessed Sex Assigned at Date Recorded Not on file documented as of this encounter Plan of Treatment Upcoming Encounters Date Type Specialty Care Team Description 01/07/2022 Virtual Visit Endocrinology Natalya Jean MD [address] [place] [address] (Wo rk) documented as of this encounter Procedures Procedure Name Priority Date/Time Associated Diagnosis Comme [facility] US PELVIC Routine 05/23/2005 10:02 AM Results for this NON-OB, COMPLETE FIELD CROP FARM WORKER procedure a re in the results section. documented in this encounter Results SONO PELVIS COMPLETE (05/23/2005 10:02 AM FIELD CROP FARM WORKER) Specimen (Source) Anatomical Collection Method Collection Time Re ceived Time Location / / Volume Laterality 05/23/2005 10:02 AM FIELD CROP FARM WORKER Impressions RADIOLOGY RESULTS - 05/26/2005 10:39 AM FIELD CROP FARM WORKER PELVIC ULTRASOUND WITH TRANSVAGINAL - ?? TECHNIQUE: With transvaginal imaging to better evaluate the adnexa. ?? FINDINGS: Normal endometrium of 5 mm. No rmal ovaries. No free fluid seen. The exam is otherwise unremarkable . [facility] Performing Organization Address City/State/ZIP Code Phon e Number RADIOLOGY RESULTS documented in this encounter Visit Diagnoses Not on filedocumented in this encounter
--- OUTSIDE RECORDS SUMMARY | 2021-10-15 08:10 | XMS_ITS | Encounter Summary ---
:1985 Author Organization [place] Address [address] [place] [address]. [place] [address] Care Team Providers Name Role Phone Unavailable Primary Care Provider Unavailable Encounter Details Date Type Department Care Team Description 05/23/2005 Historic Results INTERFACED REPORT Aleksandra Carrizales MD [address] [phone] (Wo rk) Social History Tobacco Use Types Packs/Day Years Used Date Never Assessed Sex Assigned at Date Recorded Not on file documented as of this encounter Plan of Treatment Upcoming Encounters Date Type Specialty Care Team Description 01/07/2022 Virtual Visit Endocrinology Natalya Jean MD [address] [place] [phone] (Wo rk) documented as of this encounter Procedures Procedure Name Priority Date/Time Associated Comments Diagnosis WET PREPARATION STAT 05/23/2005 9:45 AM Result s for this OUTREACH DIRECTOR procedure are i n the results section. NEISSERIA GONORRHOEAE STAT 05/23/2005 9:45 AM Results for this PCR OUTREACH DIRECTOR procedure are i n the results section. CHLAMYDIA TRACHOMATIS STAT 05/23/2005 9:45 AM Results for this PCR OUTREACH DIRECTOR procedure are i n the results section. HCG QUALITATIVE URINE STAT 05/23/2005 9:20 AM Results for this OUTREACH DIRECTOR procedure are i n the results section. ROUTINE UA WITH STAT 05/23/2005 9:20 AM Result s for this MICROSCOPIC OUTREACH DIRECTOR procedure are i n the results section. HEMOGRAM DIFFERENTIAL STAT 05/23/2005 7:35 AM Results for this AND PLATELET OUTREACH DIRECTOR procedure are i n the results section. BASIC METABOLIC PANEL STAT 05/23/2005 7:35 AM Results for this OUTREACH DIRECTOR procedure are i n the results section. documented in this encounter Results Chlamydia trachomatis PCR (05/23/2005 9:45 AM OUTREACH DIRECTOR) Component Value Ref Test Analysis Performed At [facility] Method Time Signature Specimen Cervical MISYS Description Chlamydia Negative for C. MISYS Trachomatis PCR trachomatis rRNA by sole seamer mediated amplification. Comment: A negative result by sole seamer medi ated amplification does not preclude the presence of C. trachomatis infection be cause results are dependent on proper and adequate collection, absence of inh ibitors, and sufficient rRNA to be detected. Specimen Anatomical Collection Method Collection Time Receive d Time (Source) Location / / Volume Laterality 05/23/2005 9:45 AM 6 OUTREACH DIRECTOR 10:02 AM OUTREACH DIRECTOR [facility] - MICRO GENERAL ORDERABL ES Performing Organization Address City/[facility]/ZIP Code Phon e Number MISYS Neisseria gonorrhoeae PCR (05/23/2005 9:45 AM OUTREACH DIRECTOR) [facility] Method Time Signature Specimen Cervical MISYS Descrip N Gonorrhea Negative for N. MISYS PCR gonorrhoeae rRNA by sole seamer mediated amplification. Comment: A negative result by sole seamer medi ated amplification does not preclude the presence of N. gonorrhoeae infection be cause results are dependent on proper and adequate collection, absence of inh ibitors, and sufficient rRNA to be detected. Specimen Anatomical Collection Method Collection Time Receive d Time (Source) Location / / Volume Laterality 05/23/2005 9:45 AM 6 OUTREACH DIRECTOR 10:02 AM OUTREACH DIRECTOR Pediatrics [facility] - MICRO GENERAL ORDERABL ES Performing Organization Address City/State/ZIP Code Phon e Number MISYS Wet prep (05/23/2005 9:45 AM OUTREACH DIRECTOR) [facility] Method Time Signature Specimen Vagina MISYS Description Micro Report FINAL MISYS Status [id number] Wet Prep Few PMN'S MISYS seen Comment: No Trichomonas seen No yeast seen No clue cells seen Specimen Anatomical Collection Method Collection Time Receive d Time (Source) Location / / Volume Laterality 05/23/2005 9:45 AM 6 OUTREACH DIRECTOR 10:02 AM OUTREACH DIRECTOR Pediatrics [facility] - MICRO GENERAL ORDERABL ES Performing Organization Address City/State/ZIP Code Phon e Number MISYS (ABNORMAL) Routine UA with microscopic (05/23/2005 9:20 AM OUTREACH DIRECTOR) [facility] Method Time Signature Source Midstream MISYS Urine Color Urine Yellow MISYS Appearance Urine Clear MISYS Glucose Urine Negative NEG mg/dL MISYS Bilirubin Urine Negative NEG MISYS Ketones Urine Negative NEG mg/dL MISYS Specific [place] 1.016 1.003 - MISYS Urine 1.035 Blood Urine Negative NEG MISYS pH Urine 5.5 5.0 - 7.0 MISYS pH Protein Albumin Negative NEG mg/dL MISYS Urine Urobilinogen Normal 0.0 - 2.0 MISYS mg/dL mg/dL Nitrite Urine Negative NEG MISYS Leukocyte Negative NEG MISYS Esterase Urine WBC Urine 2 0 - 2 MISYS /HPF RBC Urine 1 0 - 2 MISYS /HPF Squamous 4 (H) 0 - 1 MISYS Epithelial /HPF /HPF Urine Bacteria Urine Moderate (A) NEG /HPF MISYS Mucous Urine Present (A) NEG /LPF MISYS Specimen Anatomical Collection Method Collection Time Receive d Time (Source) Location / / Volume Laterality 05/23/2005 9:20 AM 6 7:48 OUTREACH DIRECTOR AM OUTREACH DIRECTOR [facility] - URINE ORDERABLES Performing Organization Address City/[facility]/ZIP Code Phon e Number MISYS HCG qualitative urine (05/23/2005 9:20 AM OUTREACH DIRECTOR) athologist Signature HCG Qual Urine Negative NEG MISYS Specimen Anatomical Collection Method Collection Time Receive d Time (Source) Location / / Volume Laterality 05/23/2005 9:20 AM 6 7:48 OUTREACH DIRECTOR AM OUTREACH DIRECTOR [facility] - URINE ORDERABLES Performing Organization Address City/[facility]/ZIP Code Phon e Number MISYS (ABNORMAL) Hemogram differential and platelet (05/23/2005 7:35 AM OUTREACH DIRECTOR) [facility] Method Time Signature MCV 84 77 - 100 MISYS fl MCH 27.8 26.5 - MISYS 33.0 pg MCHC 33.0 32.0 - MISYS 36.0 g/dL RDW 12.1 10.0 - MISYS 15.0 % WBC 7.1 4.0 - MISYS 11.0 10e9/L RBC Count 4.87 3.7 - 5.3 MISYS 10e12/L Hemoglobin 13.5 11.7 - MISYS 15.7 g/dL Hematocrit 41.0 35.0 - MISYS 47.0 % % Neutrophils 66 (H) 32 - 64 % MISYS % Lymphocytes 25 (L) 26 - 50 % MISYS % Monocytes 6 0 - 12 % MISYS % Eosinophils 3 0 - 6 % MISYS % Basophils 0 0 - 2 % MISYS Platelet Count 249 150 - 450 MISYS 10e9/L Absolute 4.6 1.3 - 7.0 MISYS Neutrophil 10e9/L Absolute 1.8 1.0 - 5.8 MISYS Lymphocytes 10e9/L Absolute 0.4 0.0 - 1.3 MISYS Monocytes 10e9/L Absolute 0.2 0.0 - 0.7 MISYS Eosinophils 10e9/L Absolute 0.0 0.0 - 0.2 MISYS Basophils 10e9/L Diff Method Automated MISYS Method Specimen Anatomical Collection Method Collection Time Receive d Time (Source) Location / / Volume Laterality 05/23/2005 7:35 AM 6 7:48 OUTREACH DIRECTOR AM OUTREACH DIRECTOR [facility] - BLOOD ORDERABLES Performing Organization Address City/State/ZIP Code Phon e Number MISYS Basic metabolic panel (05/23/2005 7:35 AM OUTREACH DIRECTOR) P athologist Signature Sodium 141 133 - 144 MISYS mmol/L Potassium 4.3 3.4 - 5.3 MISYS mmol/L Chloride 108 96 - 110 MISYS mmol/L Carbon Dioxide 22 20 - 32 MISYS mmol/L Glucose 96 60 - 110 MISYS mg/dL Urea Nitrogen 13 5 - 24 MISYS mg/dL Creatinine 0.90 0.60 - MISYS 1.20 mg/dL GFR Estimate 88 >60 MISYS mL/min/1.7 m2 GFR Estimate If >90 >60 MISYS Black mL/min/1.7 m2 Calcium 8.9 8.7 - 10.8 MISYS mg/dL Anion Gap 11 6 - 17 MISYS mmol/L Specimen Anatomical Collection Method Collection Time Receive d Time (Source) Location / / Volume Laterality 05/23/2005 7:35 AM 6 7:48 OUTREACH DIRECTOR AM OUTREACH DIRECTOR [facility] - BLOOD ORDERABLES Performing Organization Address City/State/ZIP Code Phon e Number MISYS documented in this encounter Visit Diagnoses Not on filedocumented in this encounter
--- OUTSIDE RECORDS SUMMARY | 2021-10-15 08:10 | XMS_ITS | Encounter Summary ---
:1985 Author Organization [place] Address [address] [place] [address]. [place] [address] Care Team Providers Name Role Phone Unavailable Primary Care Provider Unavailable Encounter Details Date Type Department Care Team Description 07/21/2004 Historic Hris Administrator INTERFACED REPORT Ilana Levy Social History Tobacco Use Types Packs/Day Years Used Date Never Assessed Sex Assigned at Date Recorded Not on file documented as of this encounter Progress Notes Interface, Hris Administrator - 02/12/2011 3:18 AM AERIAL PHOTOGRAPHER : 89 CHIEF COMPLAINT: Ankle and knee pain. HISTORY OF PRESENT ILLNESS: Carley is an almost 19-year-old white female who was dancing at school and somehow twisted her ankles and knee of her right lower extremity. She developed pain in the posterior aspect of the right knee and presented for evaluation. PAST MEDICAL HISTORY: Past medical history is significant for sprained both ankles, fracture of the right ankle, otitis media, exercise induced asthma, and hypothyroidism for which she is taking Synthroid. MEDICATIONS: Medication at home is Synthroid, and for pain she is taking Advil. IMMUNIZATIONS: Immunizations are up to date. ALLERGIES: None known to be to AMOXICILLIN. REVIEW OF SYSTEMS: Please see History of Present Illness and Past Medical History. GENERAL REVIEW reveals is patient is obese with 97.0 kg of weight. Otherwise there is tenderness over the popliteal fossa right on the posterior aspect of the right knee. There is minimal acne. All other review of systems is completely unremarkable. FAMILY HISTORY: Family history is noncontributory. SOCIAL HISTORY: In the household are living mother, father, patient, and brother. There is no smoking. They have two cats. EPIDEMIOLOGIC HISTORY: Patient attends school. They visited [place] in May 2004. PHYSICAL EXAMINATION: VITAL SIGNS: Temperature 97.4. Heart rate 88, respirations 16. Blood pressure 114/64. Oxygen saturation 99% on room air. Weight 97.0 kg. GENERAL: Physical examination reveals a large almost 19-year-old white female in no distress. HEAD, EYES, EARS, NOSE, THROAT: Head is normocephalic, atraumatic. Pupils equal, reacting to light. Sclerae and conjunctivae clean. Nostrils clean and patent. Oral cavity mucous membranes moist and clean. Ears intact tympanic membranes bilaterally. NECK supple, no adenopathy, thyromegaly. CHEST symmetric. HEART regular sinus rate and rhythm. No murmur appreciated. LUNGS equal breath sounds, good air exchange. No rales, rhonchi, wheezing, crackles. ABDOMEN soft with no organomegaly, masses, tenderness, rebound, guarding. SKIN clean except minimal facial acne. No rash, petechiae, hematomas. LYMPHATICS: No adenopathy. NEUROLOGIC EXAM grossly intact. Musculoskeletal evaluation reveals intact UPPER EXTREMITIES and LEFT LOWER EXTREMITY. RIGHT LOWER EXTREMITY reveals tenderness in the popliteal fossa. However, no obviously identifiable swelling or any deformity or palpable tenderness on the posterior aspect of the popliteal fossa. There was intact range of motion in the right knee and intact dorsalis pedis artery pulse. MEDICAL DECISION MAKING PROCESS: Patient complains of pain in the right knee. There is a possibly of ligamentous versus meniscal injury. Knee immobilizer was applied. Patient was discharged to home. DISCHARGE DIAGNOSIS: Knee sprain. DISCHARGE INSTRUCTIONS: Walk only with knee immobilizer. Take Tylenol for pain as needed. Follow with Orthopedic Surgery, call tomorrow for appointment. Advised which orthopedic surgeon to follow and receive appointment. [id number] KELLIE LEVY MD [place]: Document: [id number] CC: KELLIE LEVY MD [place], [place] Name: MR#: CARLEY CHAN -23 EMERGENCY ROOM ENCOUNTER Page 2 of 2 LCN: ERC DSC: 07/21/2004 [place], [place] Name: MR#: CARLEY CHAN [id number] : Admit Date: Account #: 1985 07/21/2004 [id number] Doctor: KELLIE LEVY MD EMERGENCY ROOM ENCOUNTER Page 1 of 2 AL PHOTOGRAPHER documented in this encounter Plan of Treatment Upcoming Encounters Date Type Specialty Care Team Description 01/07/2022 Virtual Visit Endocrinology Natalya Jean MD [address] [place] [address] (Wo rk) documented as of this encounter Visit Diagnoses Not on filedocumented in this encounter
--- OUTSIDE RECORDS SUMMARY | 2021-10-15 08:10 | XMS_ITS | Encounter Summary ---
:1985 Author Organization [facility] Address [address] [place] [address] Care Team Providers Name Role Phone Unavailable Primary Care Provider Unavailable Encounter Details Date Type Department Care Team Description 05/23/2005 Emergency room [facility] [address] [address] [place] [address] (Wo rk) Social History Tobacco Use Types Packs/Day Years Used Date Never Assessed Sex Assigned at Date Recorded Not on file documented as of this encounter Progress Notes Interface, Orchestrator - 05/24/2005 10:20 PM SCHOOL CROSSING GUARD SUPERVISOR FINAL CHIEF COMPLAINT: Left lower quadrant pain. HISTORY OF PRESENT ILLNESS: The patient is a 19-year-old female who has been having left lower quadrant pain since yesterday about 2 p.m. No vaginal discharge, no pain with urination. She finished herperiod about 4 days ago. No other complaints at this time. The patient is not sexually active and nohistory of STDs. PAST MEDICAL HISTORY: Hypothyroidism. PAST SURGICAL HISTORY: Negative. SOCIAL HISTORY: Negative. FAMILY HISTORY: Negative. MEDICATIONS: Synthroid. ALLERGIES: None. REVIEW OF SYSTEMS: As noted in HPI. All other systems are negative. PHYSICAL EXAMINATION: GENERAL: The patient is alert and cooperative. VITAL SIGNS: Blood pressure 133/89, pulse 88, respiratory rate 16, temperature 96.6 and O2 sat 100%on room air. HEENT: Head is normocephalic and atraumatic. Pupils are equal, round and reactive to light. EOMs are intact. There is no icterus noted. Oropharynx is pink, moist and intact. No lesions noted. External auditory canals are without drainage. NECK: Supple, full range of motion. CARDIAC: Regular rate and rhythm without murmurs. PULMONARY: Clear bilaterally, no rhonchi or wheezes. ABDOMEN: Soft, positive bowel sounds. No organomegaly. She does have some left lower quadrant tenderness present. No CVA tenderness. EXTREMITIES: Normal. NEUROLOGIC: Normal. SKIN: Normal. EMERGENCY DEPARTMENT COURSE: The patient had a peripheral IV established. She was given IV normal saline, approximately 1 liter during her ED stay, I gave her Toradol 30 mg IV, which did help her discomfort quite a bit. A pelvic exam was completed. She did have a moderate amount of adnexal tendernesson the left. No other abnormalities on pelvic exam. The patient's hemogram and differential was all within normal limits with exception of the neutrophil count of 66%, lymphocyte count 25%. Basic metabolic panel was all within normal limits. Urinalysis had some bacteria but only a couple white cells, moderate squamous cells, no nitrites, no leukocyte esterase, clear color. Urine hCG is negative. The patient's wet prep came back with few PMNS, no Trich, no yeast and no clue cells. An ultrasound of the pelvis was unremarkable. The patient continued to improve in the emergency department. DIAGNOSIS: Abdominal pain, unclear etiology. PLAN: The patient will be discharged home. Tylenol No. 3 for discomfort, Motrin [id number]. Follow up with primary care physician in 3-5 days, clear liquids x8 hours and advance diet as tolerated. Return to emergency department if symptoms get worse. Electronically signed on 05/24/2005 22:19 by GLORY KRAFT MD MT: [id number] Name: CARLEY CHAN MRN: [id number] Account: [id number] : 1985 Visit Date: 05/23/2005 Document: [id number] cc: [facility] CROSSING GUARD SUPERVISOR Interface, Orchestrator - 05/24/2005 3:26 PM SCHOOL CROSSING GUARD SUPERVISOR PRELIMINARY CHIEF COMPLAINT: Left lower quadrant pain. HISTORY OF PRESENT ILLNESS: The patient is a 19-year-old female who has been having left lower quadrant pain since yesterday about 2 p.m. No vaginal discharge, no pain with urination. She finished herperiod about 4 days ago. No other complaints at this time. The patient is not sexually active and nohistory of STDs. PAST MEDICAL HISTORY: Hypothyroidism. PAST SURGICAL HISTORY: Negative. SOCIAL HISTORY: Negative. FAMILY HISTORY: Negative. MEDICATIONS: Synthroid. ALLERGIES: None. REVIEW OF SYSTEMS: As noted in HPI. All other systems are negative. PHYSICAL EXAMINATION: GENERAL: The patient is alert and cooperative. VITAL SIGNS: Blood pressure 133/89, pulse 88, respiratory rate 16, temperature 96.6 and O2 sat 100%on room air. HEENT: Head is normocephalic and atraumatic. Pupils are equal, round and reactive to light. EOMs are intact. There is no icterus noted. Oropharynx is pink, moist and intact. No lesions noted. External auditory canals are without drainage. NECK: Supple, full range of motion. CARDIAC: Regular rate and rhythm without murmurs. PULMONARY: Clear bilaterally, no rhonchi or wheezes. ABDOMEN: Soft, positive bowel sounds. No organomegaly. She does have some left lower quadrant tenderness present. No CVA tenderness. EXTREMITIES: Normal. NEUROLOGIC: Normal. SKIN: Normal. EMERGENCY DEPARTMENT COURSE: The patient had a peripheral IV established. She was given IV normal saline, approximately 1 liter during her ED stay, I gave her Toradol 30 mg IV, which did help her discomfort quite a bit. A pelvic exam was completed. She did have a moderate amount of adnexal tendernesson the left. No other abnormalities on pelvic exam. The patient's hemogram and differential was all within normal limits with exception of the neutrophil count of 66%, lymphocyte count 25%. Basic metabolic panel was all within normal limits. Urinalysis had some bacteria but only a couple white cells, moderate squamous cells, no nitrites, no leukocyte esterase, clear color. Urine hCG is negative. The patient's wet prep came back with few PMNS, no Trich, no yeast and no clue cells. An ultrasound of the pelvis was unremarkable. The patient continued to improve in the emergency department. DIAGNOSIS: Abdominal pain, unclear etiology. PLAN: The patient will be discharged home. Tylenol No. 3 for discomfort, Motrin [id number]. Follow up with primary care physician in 3-5 days, clear liquids x8 hours and advance diet as tolerated. Return to emergency department if symptoms get worse. MD Khloe DUNAWAY: 05/23/2005 MT: [id number] Name: CARLEY CHAN Account: [id number] : 1985 Visit Date: 05/23/2005 Document: [id number] cc: [facility] CROSSING GUARD SUPERVISOR documented in this encounter Plan of Treatment Upcoming Encounters Date Type Specialty Care Team Description 01/07/2022 Virtual Visit Endocrinology Natalya Jean MD [address] [place] [address] (Wo rk) documented as of this encounter Visit Diagnoses Not on filedocumented in this encounter
--- OUTSIDE RECORDS SUMMARY | 2021-10-15 08:10 | XMS_ITS | Encounter Summary ---
:1985 Author Organization [place] Address [address] [place] [address]. [place] [address] Care Team Providers Name Role Phone Gina Bautista PA-C Primary Care Provider [phone] Gina Bautista PA-C Unavailable [phone] Gina Bautista PA-C Unavailable [phone] Gina Bautista PA-C Unavailable [phone] Reason for Visit Reason Comments Panel Management Needs PAP Encounter Details Date Type Department Care Team Description 03/13/2015 [facility] Jigna Vance PA-C (Needs PAP ) [address] [address] [id number] Social History Tobacco Use Types Packs/Day Years Used Date Never Smoker Smokeless Tobacco: Never Used Alcohol Use Standard Drinks/Week Comments Yes 0 (1 standard drink = 0.6 oz pure alcoho l) Sex Assigned at Date Recorded Not on file documented as of this encounter Progress Notes Monica Tony CMA - 03/13/2015 3:48 PM CST Panel Management Review Patient has the following on her problem list: N/A Composite cancer screening Chart review shows that this patient is due/due soon for the following Pap Smear Summary: Patient is due/failing the following: PAP Action needed: Patient needs office visit for PAP. Type of outreach: Sent letter. Questions for provider review: None Marianne Tony CMA (AANE) 03/13/2015 3:48 PM ICAL STUDIES PROFESSOR documented in this encounter Plan of Treatment Upcoming Encounters Date Type Specialty Care Team Description 01/07/2022 Virtual Visit Endocrinology Natalya Jean MD [address] [place] [address] (Wo rk) documented as of this encounter Visit Diagnoses Not on filedocumented in this encounter Additional Health Concerns Assessment Noted Time PHQ-9 Depression Total Score: 13 02/01/2015 7:29 AM CS T documented as of this encounter Care Teams Multimedia Editor Relationship Specialty Start Date End Date Gina Bautista, PCP - General Physician Supervisor Firearms 5 09/03/21 PA-C [id number] [address] [address] Gina Bautista, PCP - Assigned PCP 01/12/15 05/11/18 PA-C 76322 M[address] DUVALL [address] Gina Bautista, Physician Supervisor Firearms 01/31/15 PA-C 89966 [address] DUVALL [address] Gina Bautista, Assigned PCP 01/12/15 PA-C 46078 MOR[address] DUVALL [address] documented as of this encounter
--- OUTSIDE RECORDS SUMMARY | 2021-10-15 08:10 | XMS_ITS | Encounter Summary ---
:1985 Author Organization [place] Address [address] [place] [address] Care Team Providers Name Role Phone Unavailable Primary Care Provider Unavailable Encounter Details Date Type Department Care Team Description 09/30/2005 Results Only [facility] [place] [address] (Wo rk) Social History Tobacco Use Types Packs/Day Years Used Date Never Assessed Sex Assigned at Date Recorded Not on file documented as of this encounter Plan of Treatment Upcoming Encounters Date Type Specialty Care Team Description 01/07/2022 Virtual Visit Endocrinology Natalya Jean MD [address] [place] [address] (Wo rk) documented as of this encounter Procedures Procedure Name Priority Date/Time Associated Diagnosis Comme nts X-RAY FOOT Routine 09/30/2005 10:59 AM Results for this COMPLETE >=3 VIEWS CDT procedure are in the results section. documented in this encounter Results X-RAY FOOT 3+ VW (09/30/2005 10:59 AM CDT) Specimen (Source) Anatomical Collection Method Collection Time Re ceived Time Location / / Volume Laterality 09/30/2005 10:59 AM CDT Impressions RADIOLOGY RESULTS - 09/30/2005 11:39 AM CDT 3 VIEW RIGHT FOOT - 09/30/2005 ?? HISTORY: Blunt trauma to the right foot. ?? FINDINGS: Negative three-view right foot . Home Jessica MD GENERAL IMAGING Performing Organization Address City/State/ZIP Code Phon e Number RADIOLOGY RESULTS documented in this encounter Visit Diagnoses Not on filedocumented in this encounter
== END 2021-09-17 09:50 | disposition home or self-care (01) ==
LOC: LAB 09:52
PROVIDERS: PCP Internal Medicine; Visit Provider Obstetrics & Gynecology
DX: O99.011 Anemia complicating pregnancy, first trimester (principal); E03.9 Hypothyroidism, unspecified; Z3A.12 12 weeks gestation of pregnancy
CPT/HCPCS: 36415; 84439; 84443

== ENCOUNTER 2021-10-09 07:58 | Outpatient (CLI) | payer BC, SELFPAY ==
--- NOTE | 2021-10-09 08:15 | CRLHL7_ITS ---
For Patients: As a result of the Century Cures Act, medical imaging exams and procedure reports are released immediately into your electronic medical record. You may view this report before your referring provider. If you have questions, please contact your health care provider. INDICATION: H/O RETROPLACENTAL LOGAN SEEN 09/17/21- RECHECK COMPARISON: 09/17/2021, 09/04/2021 TECHNIQUE: Real time szymanski scale imaging of the fetus was performed. FINDINGS: heart rate 161 beats per minute. Placenta is posterior. Retroplacental blood collection again noted measuring 3.3 x 0.8 x 2.5 cm, previously measuring 2.9 x 1.2 x 2.7 cm. Cervix is closed and measures 4.4 cm. No previa. IMPRESSION: Similar appearance of the retroplacental hemorrhage. Dictated by Ethan Bah MD @ 10/09/2021 9:07:15 AM (Electronically Signed)
--- OUTSIDE RECORDS SUMMARY | 2021-10-16 00:57 | XMS_ITS | Encounter Summary ---
:1985 Author Organization [place] Address [address] [place] [address]. [place] [address] Care Team Providers Name Role Phone Gina Bautista PA-C Primary Care Provider [phone] Gina Bautista PA-C Unavailable [phone] Gina Bautista PA-C Unavailable [phone] Gina Bautista PA-C Unavailable [phone] Reason for Visit Reason Comments Urgent Care URI Colds x3-4- facial pain and pressure, sinus pressure, MAK, achy lymphnofe, L ear pain- unable to hear f rom L ear. Encounter Details Date Type Department Care Team Description 02/22/2017 Office Visit [facility] Johny Puga, Acute sinusitis with Urgent Care Ferny gage MD symptoms greater than [address] [address] [address] [address] Jason 10 days (Primary Dx) [place] [address] [phone] Social History Tobacco Use Types Packs/Day Years Used Date Never Smoker Smokeless Tobacco: Never Used Alcohol Use Standard Drinks/Week Comments Yes 0 (1 standard drink = 0.6 oz pure alcoho l) Sex Assigned at Date Recorded Not on file documented as of this encounter Last Filed Vital Signs Vital Sign Reading Time Taken Comments Blood Pressure 108/62 02/22/2017 11:59 AM [employer]WN [employer]ICE SPRAY SUPERVISOR Pulse 61 02/22/2017 11:59 AM LA[employer] TREE SERVICE SPRAY SUPERVISOR Temperature 36.7 ??C (98.1 ??F) 02/22/2017 11:59 AM LAWN AND TREE SERVICE SPRAY SUPERVISOR Respiratory Rate - - Oxygen Saturation 100% 02/22/2017 11:59 AM LAWN AND TREE SERVICE SPRAY SUPERVISOR Inhaled Oxygen Concentration - - Weight - [...] have suggested that the patient Push fluids. AND TREE SERVICE SPRAY SUPERVISOR documented in this encounter Nursing Notes Nury [...] Medication Reconciliation: complete Nury Nation CMA (AASANDRA) AND TREE SERVICE SPRAY SUPERVISOR documented in this encounter Plan of Treatment Upcoming Encounters Date Type Specialty Care Team Description 01/07/2022 Virtual Visit Endocrinology Natalya Jean MD [address] [place] [address] (Wo rk) documented as of this encounter Visit Diagnoses Diagnosis Acute sinusitis with symptoms greater th an 10 days - Primary Acute sinusitis, unspecified documented in this encounter Additional Health Concerns Assessment Noted Time PHQ-9 Depression Total Score: 9 02/19/2017 2:07 PM LAWN [employer] TREE SERVICE SPRAY SUPERVISOR documented as of this encounter Care Teams Emergency Medical Technician Basic Relationship Specialty Start Date End Date Gina Bautista, PCP - General Physician Director Of Teenage Activities 5 09/03/21 PA-C 23837 M[address] DUVALL [address] Gina Bautista, PCP - Assigned PCP 01/12/15 05/11/18 PA-C 18634 MOR[address] DUVALL [address] Gina Bautista, Physician Director Of Teenage Activities 01/31/15 PA-C 24228 MORAIM[address] DUVALL [address] Gina Bautista, Assigned PCP 01/12/15 PA-C 35494 MORAIMA DUVALL [address] documented as of this encounter
--- OUTSIDE RECORDS SUMMARY | 2021-10-16 00:57 | XMS_ITS | Encounter Summary ---
:1985 Author Organization [facility] Address [address] [place] [address]. [place] [address] Care Team Providers Name Role Phone Gina Bautista PA-C Primary Care Provider [phone] Gina Bautista PA-C Unavailable [phone] Gina Bautista PA-C Unavailable [phone] Gina Bautista PA-C Unavailable [phone] Encounter Details Date Type Department Care Team Description 05/08/2017 Office Visit [facility] Lisa Lopez LP Anxiety (Primary Dx) Services [address] [phone] Social History Tobacco Use Types Packs/Day Years [...] her ex spouse. At work, has received [employer] and a perk. But has lots of [...] plan. Lisa Lopez LP February 19, 2017 AND BREAKFAST COOK documented in this encounter Plan of Treatment Upcoming Encounters Date Type Specialty Care Team Description 01/07/2022 Virtual Visit Endocrinology Natalya Jena MD [address] [place] [address] (Wo rk) documented as of this encounter Visit Diagnoses Diagnosis Anxiety - Primary Anxiety state, unspecified documented in this encounter Additional Health Concerns Assessment Noted Time PHQ-9 Depression Total Score: 10 05/09/2017 8:01 AM CS T documented as of this encounter Care Teams Double Head Machine Operator Relationship Specialty Start Date End Date Gina Bautista, PCP - General Physician Government Gauger 5 09/03/21 PA-C [address] [place] [address] Gina Bautista, PCP - Assigned PCP 01/12/15 05/11/18 PA-C [address] [place] [address] Gina Bautista, Physician Government Gauger 01/31/15 PA-C [address] [place] [address] Gina Bautista, Assigned PCP 01/12/15 PA-C [address] [place] [address] documented as of this encounter
--- OUTSIDE RECORDS SUMMARY | 2021-10-16 00:57 | XMS_ITS | Encounter Summary ---
:1985 Author Organization [facility] Address [address] [place] [address]. [place] [address] Care Team Providers Name Role Phone Gina Bautista PA-C Primary Care Provider [phone] Gina Bautista PA-C Unavailable [phone] Gina Bautista PA-C Unavailable [phone] Gina Bautista PA-C Unavailable [phone] Reason for Visit Mental Health Outpatient (Routine) - Closed Specialty Diagnoses / Procedures Referred By Contact Refer red To Contact Gina Bautista FAIRVI [facility] JANETTE BERNAL [facility] [id number] [place] [id number] [place] [address] [place] [address] Phone: Fax: Referral ID Status Reason Start Date Expiration Date Visits Requ ested Visits Authorized [facility] Closed 01/14/2017 01/14/2018 1 52 Encounter Details Date Type Department Care Team Description 02/19/2017 Office Visit [facility] Lisa Lopez LP Anxiety (Primary Dx) Services [place] [address] [facility] [address] [place] [phone] Social History Tobacco Use [...] decree) Talks to relatives ( who are pierogi maker) to get concrete info. Explored TIP skills. [...] plan. Lisa Lopez LP February 19, 2017 LAGE CLERK documented in this encounter Plan of Treatment Upcoming Encounters Date Type Specialty Care Team Description 01/07/2022 Virtual Visit Endocrinology Natalya Jean MD [address] [place] [address] (Wo rk) documented as of this encounter Visit Diagnoses Diagnosis Anxiety - Primary Anxiety state, unspecified documented in this encounter Additional Health Concerns Assessment Noted Time PHQ-9 Depression Total Score: 9 02/19/2017 2:07 PM WHEELAGE CLERK documented as of this encounter Care Teams Carousel Operator Relationship Specialty Start Date End Date Gina Bautista, PCP - General Physician Internal Consultant 5 09/03/21 PA-C 65450 M[address] DUVALL [address] Gina Bautista, PCP - Assigned PCP 01/12/15 05/11/18 PA-C 40395 MOR[address]IM[address] DUVALL [address] Gina Bautista, Physician Internal Consultant 01/31/15 PA-C 20065 MORAIM[address] DUVALL [address] Gina Bautista, Assigned PCP 01/12/15 PA-C 04413 MORAIMA DUVALL [address] documented as of this encounter
--- OUTSIDE RECORDS SUMMARY | 2021-10-16 00:57 | XMS_ITS | Encounter Summary ---
:1985 Author Organization [place] Address [address] [place] [address]. [place] [address] Care Team Providers Name Role Phone Gina Bautista PA-C Primary Care Provider [phone] Gina Bautista PA-C Unavailable [phone] Vidya Espinal APRN [facility] Unavailable [phone] Clinic, [facility] Unavailable Encounter Details Date Type Department Care Team Description 08/08/2021 Medical Correspondence [facility] Scan, ENDOCRINOLOGY ORDER Health Info [facility] Non-Provider [facility] [address] [place] [phone] Social History Tobacco Use Types Packs/Day [...] Endocrinology Natalya Jean MD [address] [place], [place] [address] (Wo rk) documented as of this encounter Visit Diagnoses Not on filedocumented in this encounter Additional Health Concerns Assessment Noted Time PHQ-9 Depression Total Score: 10 05/09/2017 8:01 AM CS T documented as of this encounter Care Teams Imaging Assistant Relationship Specialty Start Date End Date Gina Bautista, PCP - General Physician Joy Operator 5 09/03/21 [place] [address] [address] DUVALL [address] Gina Bautista, Physician Joy Operator 01/31/15 [place] [address] MOR[address] DUVALL [id number] Vidya Espinal APRN CNM Printing Services Coordinator 08/21/21 [facility] [address] [place] [address] [phone] [facility], [facility] 08/21/[address] [address] documented as of this encounter
--- OUTSIDE RECORDS SUMMARY | 2021-10-16 00:57 | XMS_ITS | Encounter Summary ---
:1985 Author Organization [facility] Address [address] [place] [address] Care Team Providers Name Role Phone Gina Bautista PA-C Primary Care Provider [phone] Gina Bautista PA-C Unavailable [phone] Encounter Details Date Type Department Care Team Description 08/06/2020 Records - [facility] CONVERSION Provider, Histor ical Social History Tobacco [...] Visit Endocrinology Natalya Jean MD [address] [place] [address] [phone] (Wo rk) documented as of this encounter Procedures Procedure Name Priority Date/Time Associated Diagnosis Comme nts US ABDOMEN COMPLETE Routine 07/28/2007 12:00 AM R esults for this CDT procedure are i n the results section. XR CHEST 2 VIEWS Routine 07/28/2007 12:00 AM Resu lts for this CDT procedure are i n [...] documented as of this encounter Care Teams Grass Farm Laborer Relationship Specialty Start Date End Date Gina Bautista PA-C PCP - General Physician Keyboard Operator 01/31/15 09/03/21 [address] MORAIM[address] DUVALL [id number] Gina Bautista PA-C Physician Keyboard Operator 01/31/15 06078 MORAIMA DUVALL [address] documented as of this encounter
--- OUTSIDE RECORDS SUMMARY | 2021-10-16 00:57 | XMS_ITS | Clinical Summary ---
:1985 Author Organization [place] Address [address] [place] [address] Care Team Providers Name Role Phone Gina Bautista PA-C Unavailable [phone] Vidya Espinal APRN CNM Unavailable [phone] [facility] Unavailable Marissa Jean MD Unavailable Violette Bolden [...] symptoms greater than 10 days fluticasone (FLONASE) [place] 1-2 sprays 1 Bottle 11 02/22/2017 Active 50 MCG/ACT into both nostrils sprayIndications: daily Acute sinusitis with symptoms greater than 10 days vitamin D Take 1 capsule 12 capsule 0 04/14/2017 Act clayton (ERGOCALCIFEROL) (50,000 Units) [place] [address] UNIT mouth once a week capsuleIndications: Lab [...] Medical Correspondence Scan, ENDOC RINOLOGY REFERRAL Non-Provider [facility] 2021 Transcribe Orders Provider, Hypothyroi dism Generic External (Primary Dx ) Data 08/08/2021 Medical Correspondence Scan, ENDOC RINOLOGY ORDER Non-Provider [facility] from Last 3 Months Immunizations [...] Comments Blood Pressure 108/62 02/22/2017 11:59 AM TRANSIT MIX OPERATOR Pulse 61 02/22/2017 11:59 AM TRANSIT MIX OPERATOR Temperature 36.7 ??C (98.1 ??F) 02/22/2017 11:59 AM TRANSIT MIX OPERATOR Respiratory Rate 15 12/19/2016 2:53 PM CDT Oxygen Saturation 100% 02/22/2017 11:59 AM TRANSIT MIX OPERATOR Inhaled Oxygen Concentration - - Weight 79.3 kg (174 lb 12.8 oz) 01/27/2017 1:05 PM TRANSIT MIX OPERATOR Height 167.6 cm (5' 6) 12/19/2016 2:53 PM CDT Body Mass Index 28.21 12/19/2016 2:53 PM CDT Plan of Treatment Upcoming Encounters Date Type Specialty Care Team Description 01/07/2022 Virtual Visit Endocrinology Natalya Jean MD [address] [place] [address] (Wo rk) Health Maintenance Due Date Last [...] (TSH) (External Result) (08/07/2021 10:30 AM CDT) [facility] gist Method Time Signature TSH (External) 24.700 (H) 0.270 - [place] 4.200 [facility] uIU/mL Specimen (Source) Anatomical Collection Method Collection Time Re ceived Time Location / / Volume Laterality Blood 08/07/2021 10:30 AM CDT [facility] - 08/07/2021 10:30 A M CDT [facility] LAB RESULT Provider Outside LAB - HIM EXTERNAL RESULT Performing Organization Address City/[facility]/ZIP Code Phon e Number [address] [address] [place] HIV (08/07/2021 10:30 AM CDT) athologist Signature HIV 1&2 EXT Non-Reacti Non-Reacti [facility] Comment: Negative Specimen (Source) Anatomical Collection Method Collection Time Re ceived Time Location / / Volume Laterality Blood 08/07/2021 10:30 AM CDT [facility] - 08/07/2021 10:30 A M CDT [facility] LAB RESULT Provider Outside LAB - IMMUNOLOGY ORDERABLES Performing Organization Address City/[facility]/ZIP [facility] Phon e Number [facility] [address] [place] [address] Hepatitis C (HIM External Result) (08/07/2021 10:30 AM CDT) Analysis Performed At Patho logist Time Signature Hep C HIM See Scanned [facility] Comment: Negative Specimen (Source) Anatomical Collection Method Collection Time Re ceived Time Location / / Volume Laterality 08/07/2021 10:30 AM CDT [facility] - 08/07/2021 10:30 A M CDT [facility] LAB RESULT Provider Outside LAB - HIM EXTERNAL RESULT Performing Organization Address [facility] Code Phon e Number [address] [address] Hemoglobin A1c (External Result) (08/07/2021 9:30 AM CDT) P athologist Signature Hemoglobin A1C 5.9 <=6.9 % [place] (External) [facility] Specimen (Source) Anatomical Collection Method Collection Time Re ceived Time Location / / Volume Laterality Blood 08/07/2021 9:30 AM CDT [facility] - 08/07/2021 9:30 AM CDT [facility] LAB RESULT Provider Outside LAB - HIM EXTERNAL RESULT Performing Organization Address [facility] Phon e Number [address] [address] Gonorrhea (External Result) (08/07/2021 9:29 AM CDT) Patholo gist Method Time Signature Specimen [facility] Gonorrhea Not Detected Negative [facility] Specimen (Source) Anatomical Collection Method Collection Time Re ceived Time Location / / Volume Laterality 08/07/2021 9:29 AM CDT [facility] - 08/07/2021 9:29 AM CDT [facility] LAB RESULT Provider Outside LAB - HIM EXTERNAL RESULT Performing Organization Address [facility] Phon e Number [address] [address] Chlamydia Trachomatis PCR (External Result) (08/07/2021 9:29 AM CDT) [employer] Method Time Signature Specimen Vaginal [facility] Chlamydia Not Detected Negative [place] Trachomatis [facility] Specimen (Source) Anatomical Collection Method Collection Time Re ceived Time Location / / Volume Laterality 08/07/2021 9:29 AM CDT [facility] - 08/07/2021 9:29 AM CDT [facility] LAB RESULT Provider Outside LAB - HIM EXTERNAL RESULT Performing Organization Address City/[facility]/ZIP [facility] Phon e Number [facility] [address] [place] [address] LAB RESULT - HIM SCAN (08/07/2021 12:00 [...] SCORE 3 Narrative Tee Ricardo - 08/07/2021 [facility] CLINICS PROGRESS NOT E Provider Outside OTHER from Last 3 Months Insurance Payer Benefit Plan Subscriber ID Effective Phone Address Typ e / Group Dates MEDICA MEDICA CHOICE [id number] 2016-Pres [phone] [place] [address] BCBS BCBS [facility] [id number] 2021-Pres [phone] [address] Indemnity 1 ent [phone] [place] [address] [facility] [id number] 2016-Pres [address] PPO BEHAVIORAL ent [id number] [place] [address] Care Teams Furnace Helper Relationship Specialty Start Date End Date Violette Bolden CNM PCP - General 09/04/21 [facility] [address] [place] [address] Gina Bautista, Physician Automotive General Sales Manager 01/31/15 [place] [address] [place], [place] [id number] Vidya Espinal APRN CNM Human Services Care Specialist 08/21/[address] [place] [id number] Clinic, [facility] 08/21/[address] [address] Marissa Jean MD Hospitalist Endocrinology, 09/04/21 [address] [place] Diabetes, and [address] Metabolism [place], [place] [id number]
--- OUTSIDE RECORDS SUMMARY | 2021-10-16 00:57 | XMS_ITS | Encounter Summary ---
:1985 Author Organization [facility] Address [address] [place] [address]. [place] [address] Care Team Providers Name Role Phone Gina Bautista PA-C Primary Care Provider [phone] Gina Bautista PA-C Unavailable [phone] Gina Bautista PA-C Unavailable [phone] Gina Bautista PA-C Unavailable [phone] Encounter Details Date Type Department Care Team Description 04/24/2017 Office Visit [facility] Lisa Lopez LP Anxiety (Primary Dx) Services [address] [phone] Social History Tobacco Use Types Packs/Day Years [...] plan. Lisa Lopez LP February 19, 2017 X RAY DEVELOPING MACHINE OPERATOR documented in this encounter Plan of Treatment Upcoming Encounters Date Type Specialty Care Team Description 01/07/2022 Virtual Visit Endocrinology Natalya Jean MD [address] [place] [address] (Wo rk) documented as of this encounter Visit Diagnoses Diagnosis Anxiety - Primary Anxiety state, unspecified documented in this encounter Additional Health Concerns Assessment Noted Time PHQ-9 Depression Total Score: 10 04/25/2017 8:01 AM CS T documented as of this encounter Care Teams Senior Sas Developer Relationship Specialty Start Date End Date Gina Bautista, PCP - General Physician Certified Ski Patroller 5 09/03/21 [place] [address] [place] [address] Gina Bautista, PCP - Assigned PCP 01/12/15 05/11/18 PA-C [address] [place] [address] Gina Bautista, Physician Certified Ski Patroller 01/31/15 PA-C [address] [place], [place] [address] Gina Bautista, Assigned PCP 01/12/15 PA-C [address]3563 [address] [place], [place] [address] documented as of this encounter
--- OUTSIDE RECORDS SUMMARY | 2021-10-16 00:57 | XMS_ITS | Encounter Summary ---
:1985 Author Organization [facility] Address [address] [place] [address]. [place] [address] Care Team Providers Name Role Phone Gina Bautista PA-C Primary Care Provider [phone] Michele, Gina Vance PA-C Unavailable [phone] Gina Bautista PA-C Unavailable [phone] Michele, Gina Vance PA-C Unavailable [phone] Encounter Details Date Type Department Care Team Description 11/12/2017 [facility] Lisa Lopez LP Documentation Services [address] [phone] Social History Tobacco Use Types Packs/Day Years [...] Endocrinology Natalya Jean MD [address] [place] [address] (Wo rk) documented as of this encounter Visit Diagnoses Not on filedocumented in this encounter Additional Health Concerns Assessment Noted Time PHQ-9 Depression Total Score: 10 05/09/2017 8:01 AM CS T documented as of this encounter Care Teams Air Traffic Control Manager Relationship Specialty Start Date End Date Gina Bautista, PCP - General Physician Service Associate 5 09/03/21 PA-C [address] [place] [address] Gina Bautista, PCP - Assigned PCP 01/12/15 05/11/18 PA-C [address] [place] [address] Gina Bautista, Physician Service Associate 01/31/15 PA-C [address] [place] [address] Gina Bautista, Assigned PCP 01/12/15 PA-C 07882 [place] [address] documented as of this encounter
--- OUTSIDE RECORDS SUMMARY | 2021-10-16 00:57 | XMS_ITS | Encounter Summary ---
:1985 Author Organization [place] Address [address] [place] [address]. [place] [address] Care Team Providers Name Role Phone Gina Bautista PA-C Primary Care Provider [phone] Gina Bautista PA-C Unavailable [phone] Gina Bautista PA-C Unavailable [phone] Gina Bautista PA-C Unavailable [phone] Reason for Referral - Closed Specialty Diagnoses / Procedures Referred By Contact Refer red To Contact Diagnoses S/P gastric bypass Gina Bautista, Procedures VITAMIN B12 INJ /1000MCG [place] [address] [place] [address] Referral ID Status Reason Start Date Expiration Date Visits Requ ested Visits Authorized [id number] Closed 12/29/2016 12/29/2017 1 1 Reason for Visit Reason Comments Imm/Inj starting B 12 injections Encounter Details Date Type Department Care Team Description 12/29/2016 [facility]Nurse [facility] Imm /Inj (starting B 12 Visit Clinic [place] injections ) [address] [place] [phone] Social History Tobacco Use Types Packs/Day Years [...] Endocrinology Natalya Jean MD [address] [place] [address] (Wo rk) documented as of this encounter Visit Diagnoses Diagnosis S/P gastric bypass - Primary Bariatric surgery status documented in this encounter Additional Health Concerns Assessment Noted Time PHQ-9 Depression Total Score: 7 12/19/2016 3:37 PM CDT documented as of this encounter Care Teams Insole And Outsole Preparer Relationship Specialty Start Date End Date Gina Bautista, PCP - General Physician Hospital Clerk 5 09/03/21 PA-C [address] [place], [place] [phone] Gina Bautista, PCP - Assigned PCP 01/12/15 05/11/18 PA-C [address]335 [place] [address] Gina Bautista, Physician Hospital Clerk 01/31/15 PA-C [address] [place] [address] Gina Bautista, Assigned PCP 01/12/15 PA-C [address] [place] [address] documented as of this encounter
--- OUTSIDE RECORDS SUMMARY | 2021-10-16 00:57 | XMS_ITS | Encounter Summary ---
:1985 Author Organization [place] Address [address] [place] [address]. [place] [address] Care Team Providers Name Role Phone Gina Bautista PA-C Primary Care Provider [phone] Gina Bautista PA-C Unavailable [phone] Gina Bautista PA-C Unavailable [phone] Gina Bautista PA-C Unavailable [phone] Reason for Visit Reason Onset Date Comments Outreach 05/27/2017 Encounter Details Date Type Department Care Team Description 05/27/2017 Telephone [facility] Lyle Bautista, Outreach Lucia BERNAL [address] [address] [place] [phone] [place] [phone] (Wo rk) Social History Tobacco Use Types [...] Panchito Gandhi sent at 04/15/2017 4:53 PM ROLL SLICING MACHINE TENDER ----- Call pt to schedule lab only in next 2 weeks. Labs pended. Panchito Gandhi CMA (AAOH) documented in this encounter Plan of Treatment Upcoming Encounters Date Type Specialty Care Team Description 01/07/2022 Virtual Visit Endocrinology Natalya Jean MD [address] [place] [address] (Wo rk) documented as of this encounter Visit Diagnoses Not on filedocumented in this encounter Additional Health Concerns Assessment Noted Time PHQ-9 Depression Total Score: 10 05/09/2017 8:01 AM CS T documented as of this encounter Care Teams Departmental Shipping Clerk Relationship Specialty Start Date End Date Gina Bautista, PCP - General Physician Jute Bag Sewer 5 09/03/21 PA-C [address] [place] [address] Gina Bautista, PCP - Assigned PCP 01/12/15 05/11/18 PA-C 73082 [place] [address] Gina Bautista, Physician Jute Bag Sewer 01/31/15 PA-C 62597 [place] [address] Gina Bautista, Assigned PCP 01/12/15 PA-C 82384 [place] [address] documented as of this encounter
--- OUTSIDE RECORDS SUMMARY | 2021-10-16 00:57 | XMS_ITS | Encounter Summary ---
:1985 Author Organization [place] Address [address] [place] [address] Care Team Providers Name Role Phone Gina Bautista PA-C Primary Care Provider [phone] Gina Bautista PA-C Unavailable [phone] Vidya Espinal APRN [facility] Unavailable [phone] [facility], [facility] Unavailable Reason for Referral Consultation (Urgent: 3-5 Days) - Pending Review Specialty Diagnoses / Procedures Referred By Contact Refer red To Contact Endocrinology, Diagnoses Hypothyroidism System, Provider Not Diabetes, and In Metabolism Referral ID Status Reason Start Date Expiration Date Visits V isits Requested Authorized [id number] Pending 2021 2022 1 1 Review Scheduling [...] Endocrinology Natalya Jean MD [address] [place] [address] (Wo rk) Scheduled Referrals Name Type Priority Associated Diagnoses Order S chedule Adult Endocrinology Referral Urgent: 3-5 Days Hypothyroidism Ex pected: Horser Up Referral 2 (Approximate), Expires: 2022 documented as of this encounter Visit Diagnoses Diagnosis Hypothyroidism - Primary Unspecified hypothyroidism documented in this encounter Additional Health Concerns Assessment Noted Time PHQ-9 Depression Total Score: 10 05/09/2017 8:01 AM CS T documented as of this encounter Care Teams Metal Storage Worker Relationship Specialty Start Date End Date Gina Bautista, PCP - General Physician Home Health Lvn 5 09/03/21 PA-C [address] [place] [address] Gina Bautista, Physician Home Health Lvn 01/31/15 [place] [address] [place] [address] Vidya Espinal APRN CNKianna Product Owner 08/21/[address] [place] [address] [facility], [facility] 08/21/[address] [address] documented as of this encounter
--- OUTSIDE RECORDS SUMMARY | 2021-10-16 00:57 | XMS_ITS | Encounter Summary ---
:1985 Author Organization [place] Address [address] [place] [address]. [place] [address] Care Team Providers Name Role Phone Gina Bautista PA-C Primary Care Provider [phone] Gina Bautista PA-C Unavailable [phone] Gina Bautista PA-C Unavailable [phone] Gina Bautista PA-C Unavailable [phone] Encounter Details Date Type Department Care Team Description 05/22/2017 Office Visit [facility] Lisa Lopez LP Anxiety (Primary Dx) Services [address] [phone] Social History Tobacco Use Types Packs/Day Years [...] Endocrinology Natalya Jean MD [address] [place] [address] (Wo rk) documented as of this encounter Visit Diagnoses Diagnosis Anxiety - Primary Anxiety state, unspecified documented in this encounter Additional Health Concerns Assessment Noted Time PHQ-9 Depression Total Score: 10 05/09/2017 8:01 AM CS T documented as of this encounter Care Teams Stamping Mill Tender Relationship Specialty Start Date End Date Gina Bautista, PCP - General Physician Zoology Technical Officer 5 09/03/21 [place] [address] [address] [place], [place] [address] Gina Bautista, PCP - Assigned PCP 01/12/15 05/11/18 [place] [address] [address] [place], [place] [address] Gina Bautista, Physician Zoology Technical Officer 01/31/15 [place] [address] [address] [place], [place] [address] Gina Bautista, Assigned PCP 01/12/15 [place] [address] [address] [place], [place] [address] documented as of this encounter
--- OUTSIDE RECORDS SUMMARY | 2021-10-16 00:57 | XMS_ITS | Encounter Summary ---
:1985 Author Organization [place] Address [address] [place] [address]. 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 TSH WITH FREE T4 Routine 04/10/2017 2:35 PM Hypothyroidism due to Results for this REFLEX COMMERCIAL CENTER MANAGER acquired atrophy of procedur e are in thyroid the results section. T4 FREE Routine 04/10/2017 2:35 PM Vitamin D deficiency R esults for this COMMERCIAL CENTER MANAGER procedure are i n the results section. documented in this encounter Results T4 free (04/10/2017 2:35 PM COMMERCIAL CENTER MANAGER) athologist Signature T4 Free 0.94 0.76 - 1.46 04/12/2017 [facility] ng/dL 1:41 [address] COMMERCIAL CENTER MANAGER [facility] Specimen Anatomical Collection Method Collection Time Receive d Time (Source) Location / / Volume Laterality 04/10/2017 2:35 PM 8 2:36 COMMERCIAL CENTER MANAGER PM COMMERCIAL CENTER MANAGER Gina Bautista PA-C LAB - BLOOD ORDERABLES Performing Organization Address City/[facility]/ZIP Code Phon e Number [facility] [address] [place] [address] (ABNORMAL) TSH with free T4 reflex FUTURE 2mo (04/10/2017 2:35 PM COMMERCIAL CENTER MANAGER) athologist Signature TSH 10.56 (H) 0.40 - 04/12/2017 [facility] 4.00 mU/L 1:28 PM [facility] Specimen Anatomical Collection Method Collection Time Receive d Time (Source) Location / / Volume Laterality Blood specimen 04/10/2017 2:35 PM 018 2:36 (specimen) COMMERCIAL CENTER MANAGER PM COMMERCIAL CENTER MANAGER Gina Bautista PA-C LAB - BLOOD ORDERABLES Performing Organization Address City/State/ZIP Code Phon e Number [facility] [address] [place] [address] (ABNORMAL) Vitamin D Deficiency (04/10/2017 2:35 PM COMMERCIAL CENTER MANAGER) athologist Signature Vitamin D 13 (L) 20 - 75 04/11/2017 [facility] Deficiency ug/L 11:46 AM COMMERCIAL CENTER MANAGER [facility] Comment: Season, race, dietary intake, and treatm ent affect the concentration of 67-ntpablo-Jffesoh D. 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 documented in this encounter Additional Health Concerns Assessment Noted Time PHQ-9 Depression Total Score: 9 02/19/2017 2:07 PM COMMERCIAL CENTER MANAGER documented as of this encounter Care Teams Statistical Machine Mechanic Relationship Specialty Start Date End Date Gina Bautista, PCP - General Physician Burglar Alarm Installer 5 09/03/21 PA-C [address] [place] [address] Gina Bautista, PCP - Assigned PCP 01/12/15 05/11/18 PA-C [address] [place] [address] Gina Bautista, Physician Burglar Alarm Installer 01/31/15 PA-C [address] [place] [address] Gina Bautista, Assigned PCP 01/12/15 PA-C [address] [place] [address] documented as of this encounter
--- OUTSIDE RECORDS SUMMARY | 2021-10-16 00:57 | XMS_ITS | Encounter Summary ---
:1985 Author Organization [place] Address [address] [place] [address]. [place] [address] Care Team Providers Name Role Phone Gina Bautista PA-C Primary Care Provider [phone] Gina Bautista PA-C Unavailable [phone] Gina Bautista PA-C Unavailable [phone] Gina Bautista PA-C Unavailable [phone] Reason for Visit Mental Health Outpatient (Routine) - Closed Specialty Diagnoses / Procedures Referred By Contact Refer red To Contact Gina Bautista [facility] JANETTE BERNAL [facility] [id number] [place] [id number] [place] [address] [place] [address] Phone: Fax: Referral ID Status Reason Start Date Expiration Date Visits Requ ested Visits Authorized [facility] Closed 01/14/2017 01/14/2018 1 52 Encounter Details Date Type Department Care Team Description 02/06/2017 Office Visit [facility] Lisa Lopez LP Anxiety (Primary Dx) Services [place] [id number] [facility] [address] [place] [phone] Social History Tobacco Use [...] NAME: Carley Hernandez : 1985 ACCT. NUMBER: [id number] DATE OF SERVICE: 02/06/17 Identifying Information: Client is a 31 year old, , female. Client was referred for counseling by self. 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 Client attended the session alone. Client's Statement [...] History: Client reported she grew up in [place], [place]. They were the second born of [...] concentration. There are no ethnic, cultural or yazidism factors that may be relevant for therapy. Client identified her preferred language to be Uzbek. Client reported she does not need the assistance of an java core developer or other support involved in therapy. Modifications [...] an exam with PCP. The clienthas a [place] Primary Care Provider, who is named Gina [...] muscle every30 days ??? vitamin D (ERGOCALCIFEROL) 48678 UNIT capsule Take 1 capsule (50,000 Units) [...] the following activities. For each question, please united keetoowah only one response. S1 Standing for long [...] Plan: The client reports no currently identified yazidism, ethnic or cultural issues relevant to therapy. Lawn Care Professional services are not indicated. Modifications to assist [...] NA. Client will have access to their [facility]' medical record. Lisa Lopez LP February 06, 2017 VISITOR documented in this encounter Plan of Treatment Upcoming Encounters Date Type Specialty Care Team Description 01/07/2022 Virtual Visit Endocrinology Natalya Jean MD [address] [place] [address] (Wo rk) documented as of this encounter Visit Diagnoses Diagnosis Anxiety - Primary Anxiety state, unspecified documented in this encounter Additional Health Concerns Assessment Noted Time PHQ-9 Depression Total Score: 7 12/19/2016 3:37 PM CDT documented as of this encounter Care Teams Driver Service Technician Relationship Specialty Start Date End Date Gina Bautista, PCP - General Physician Diathermy Equipment Repairer 5 09/03/21 [place] [address] [place] [address] Gina Bautista, PCP - Assigned PCP 01/12/15 05/11/18 PA-C [address] [place] [address] Gina Bautista, Physician Diathermy Equipment Repairer 01/31/15 PA-C [address] [place] [address] Gina Bautista, Assigned PCP 01/12/15 PA-C [address]451 [place] [address] documented as of this encounter
--- OUTSIDE RECORDS SUMMARY | 2021-10-16 00:57 | XMS_ITS | Encounter Summary ---
:1985 Author Organization [place] Address [address] [place] [address]. [place] [address] Care Team Providers Name Role Phone Gina Bautista PA-C Primary Care Provider [phone] Oestrfrances, Gina Vance PA-C Unavailable [phone] Oestrfrances, Gina Vance PA-C Unavailable [phone] Oestrfrances, Gina Vance PA-C Unavailable [phone] Reason for Visit Reason Comments IUD Encounter Details Date Type Department Care Team Description 01/27/2017 Office Visit [facility] Nadine Monreal Encou nter for IUD removal (Primary Dx); [facility] Encounter for preconception consultation [place] [address] [place] [address] [facility] [address] [place], [place] (Work) [address] [phone] Social History Tobacco Use Types Packs/Day Years Used Date Never Smoker Smokeless Tobacco: Never Used Alcohol Use Standard Drinks/Week Comments Yes 0 (1 standard drink = 0.6 oz pure alcoho l) Sex Assigned at Date Recorded Not on file documented as of this encounter Last Filed Vital Signs Vital Sign Reading Time Taken Comments Blood Pressure 100/60 01/27/2017 1:05 PM DRILLER HELPER Pulse - - Temperature - - Respiratory Rate - - Oxygen Saturation - - Inhaled Oxygen Concentration - - Weight 79.3 kg (174 lb 12.8 oz) 01/27/2017 1:05 PM DRILLER HELPER Height - - Body Mass Index 28.21 [...] muscle every 30 days vitamin D (ERGOCALCIFEROL) 53685 UNIT capsule Take 1 capsule (50,000 Units) [...] with hematology as needed. Nadine Monreal MD [facility] LER HELPER documented in this encounter Nursing Notes Nataliia [...] 12.8 oz (79.3 kg). Medication Reconciliation: complete LER HELPER documented in this encounter Plan of Treatment Upcoming Encounters Date Type Specialty Care Team Description 01/07/2022 Virtual Visit Endocrinology Natalya Jean MD [address] [place] [address] (Wo rk) documented as of this encounter Procedures Procedure Name Priority Date/Time Associated Diagnosis Comme nts HC REMOVE INTRAUTERINE Routine 01/27/2017 1:33 PM Encounter fo r IUD DEVICE DRILLER HELPER removal documented in this encounter Visit Diagnoses Diagnosis Encounter for IUD removal - Primary Encounter for removal of intrauterine co ntraceptive device Encounter for preconception consultation documented in this encounter Additional Health Concerns Assessment Noted Time PHQ-9 Depression Total Score: 7 12/19/2016 3:37 PM CDT documented as of this encounter Care Teams Clay Temperer Relationship Specialty Start Date End Date Gina Bautista PCP - General Physician Ship Carpenter 5 09/03/21 [place] [address] [place] [address] Gina Bautista, PCP - Assigned PCP 01/12/15 05/11/18 [place] [address] [place], [place] [address] Gina Bautista, Physician Ship Carpenter 01/31/15 [place] [address] [place] [address] Gina Bautista, Assigned PCP 01/12/15 [place] [address] [place] [address] documented as of this encounter
--- OUTSIDE RECORDS SUMMARY | 2021-10-16 00:57 | XMS_ITS | Encounter Summary ---
:1985 Author Organization [facility] Address [address] [place] [address]. [place] [address] Care Team Providers Name Role Phone Gina Bautista PA-C Primary Care Provider [phone] Oestrfrances, Gina Vance PA-C Unavailable [phone] OestrGina daniels PA-C Unavailable [phone] Oestrfrances, Gina Vance PA-C Unavailable [phone] Encounter Details Date Type Department Care Team Description 06/11/2017 Hospital Pathology [facility] Results MD Brynn DRILLER AND REAMER SPECIALIS TS [address] [facility] [address] [place], [place] [address] (Wo rk) Social History Tobacco Use Types [...] Endocrinology Natalya Jean MD [address] [place], [place] [address] (Wo rk) documented as of this encounter Procedures Procedure Name Priority Date/Time Associated Diagnosis Comme [facility] SURGICAL PATHOLOGY Routine 06/11/2017 11:30 AM Re sults for this EXAM CDT procedure are i n the results section. documented in this encounter Results Surgical pathology exam (06/11/2017 11:30 AM CDT) Component Value Ref Test Analysis Performed At [facility] Range Method Time Signature Copath Report Patient Name: CARLEY JO MR#: [id number] Specimen #: [id number] Collected: 06/11/2017 Received: 06/11/2017 Reported: 06/12/2017 14:08 [...] par ts or translucent vesicles are identified. Academic Affairs Manager sections are submitted in 2 blocks. ??The rem ainder of the specimen is handled per [facility] POC protocol. (Dictated by: ASHLEY Martinez 06/11/2017 03:17 PM) MICROSCOPIC: Microscopic examination is performed. CPT Codes: A: 32316-MP2, [facility] TESTING LAB LOCATION: [facility] [address] [place] [address] ??[phone] COLLECTION SITE: Client: [facility] Location: [id number] (F) Specimen Anatomical Collection Method [...] documented as of this encounter Care Teams Manager Operations Relationship Specialty Start Date End Date Gina Bautista, PCP - General Physician Powder Blender And Pourer 5 09/03/21 PA-C [address] [place] [address] Gina Bautista, PCP - Assigned PCP 01/12/15 05/11/18 PA-C 85852 [place], [place] [id number] Gina Bautista, Physician Powder Blender And Pourer 01/31/15 PA-C [address] [place] [address] Gina Bautista, Assigned PCP 01/12/15 PA-C [address] [place] [address] documented as of this encounter
--- OUTSIDE RECORDS SUMMARY | 2021-10-16 00:57 | XMS_ITS | Encounter Summary ---
:1985 Author Organization [place] Address [address] [place] [address]. [place] [address] Care Team Providers Name Role Phone Gina Bautista PA-C Primary Care Provider [phone] Gina Bautista PA-C Unavailable [phone] Gina Bautista PA-C Unavailable [phone] Gina Bautista PA-C Unavailable [phone] Reason for Visit Reason Comments Medication Refill Encounter Details Date Type Department Care Team Description 03/22/2017 Refill [facility] Lyle Bautista Medication Refill Lucia Vance PA-C [address] [address] [place] [id number] [place] [address] [phone] (Wo rk) Social History Tobacco Use Types Packs/Day Years Used Date Never Smoker Smokeless Tobacco: Never Used Alcohol Use Standard Drinks/Week Comments Yes 0 (1 standard drink = 0.6 oz pure alcoho l) Sex Assigned at Date Recorded Not on file documented as of this encounter Miscellaneous Notes Telephone Encounter - Violette Archer - 04/06/2017 3:23 PM CST Appointment scheduled DING CONTRACTOR Telephone Encounter - Panchito Gandhi - 04/03/2017 10:43 AM CST 2nd attempt, LM to call back. Needs non-fasting lab only apt. Panchito Gandhi CMA (AAKS) DING CONTRACTOR Telephone Encounter - Donya Damon - 03/26/2017 11:50 AM CST 1st attempt LVM to call back to make an appt DING CONTRACTOR Telephone Encounter - Yvette Negrete RN - 03/25/2017 12:18 PM BUILDING CONTRACTOR Medication is being filled for 1 time refill only due to: Patient needs labs recheck on Vitamin D level. Call to schedule lab only appointment, future order previously placed. Kim Negrete RN DING CONTRACTOR Telephone Encounter - Kaye Gr - 03/23/2017 9:36 AM CST vitamin D (ERGOCALCIFEROL) 07644 UNIT capsule Last Written Prescription Date: 12/22/2016 Last Fill Quantity: 12, # refills: 0 Last Office Visit: 02/22/2017 Future Office visit: Next 5 appointments (look out 90 days) Apr 24, 2017 2:00 PM BUILDING CONTRACTOR Return Visit with Lisa Lopez LP [facility] [address] [facility] [address] May 08, 2017 2:00 PM BUILDING CONTRACTOR Return Visit with Lisa Lopez LP [facility] [address] [facility] [address] May 22, 2017 2:00 PM CDT Return Visit with Lisa Lopez LP [facility] [address] [facility] [phone] Routing refill request to provider for review/approval because: Drug not on the [facility], [facility] or Health refill protocol or controlled substance DING CONTRACTOR documented in this encounter Plan of Treatment Upcoming Encounters Date Type Specialty Care Team Description 01/07/2022 Virtual Visit Endocrinology Natalya Jean MD [address] [place] [address] (Wo rk) documented as of this encounter Visit Diagnoses Diagnosis Vitamin D deficiency Unspecified vitamin D deficiency documented in this encounter Additional Health Concerns Assessment Noted Time PHQ-9 Depression Total Score: 9 02/19/2017 2:07 PM BUILDING CONTRACTOR documented as of this encounter Care Teams Cleaning Maid Relationship Specialty Start Date End Date Gina Bautista, PCP - General Physician Electric Distribution Engineer 5 09/03/21 PA-C [address] [place] [address] Gina Bautista, PCP - Assigned PCP 01/12/15 05/11/18 PA-C [address] [place] [address] Gina Bautista, Physician Electric Distribution Engineer 01/31/15 PA-C 255[address] [place] [address] Gina Bautitsa, Assigned PCP 01/12/15 PA-C 42984 [place] [address] documented as of this encounter
--- OUTSIDE RECORDS SUMMARY | 2021-10-16 00:57 | XMS_ITS | Encounter Summary ---
:1985 Author Organization [place] Address [address] [place] [address] Care Team Providers Name Role Phone Gina Bautista PA-C Unavailable [phone] Vidya Espinal APRNM Unavailable [phone] [place] [address] Unavailable Marissa Jean MD Unavailable Violette BoldenM Primary Care Provider Reason for Visit Reason Onset Date Comments Appointment 09/04/2021 Encounter Details Date Type Department Care Team Description 09/04/2021 Telephone [facility] Natalya Jean, Lizzeth Israel MD [address] [facility] [address] [place] [address] [place], [place] [address] (Wo rk) Social History Tobacco Use Types Packs/Day Years Used Date Never Smoker Smokeless Tobacco: Never Used Alcohol Use Standard Drinks/Week Comments Yes 0 (1 standard drink = 0.6 oz pure alcoho l) Sex Assigned at Date Recorded Not on file documented as of this encounter Miscellaneous Notes Telephone Encounter - Bhaavna Biswas - 09/04/2021 12:21 PM CDT [facility], relayed message to bead supervisor she will relay this message to the team/person who called. Telephone Encounter - Marissa Jean MD - 09/04/2021 10:29 AM CDT NEW PT TO ME. I am very sorry- but at this time schedule is booked out and I do not have any sooner appointments. Patient my wish to request endo consult at another locations or [facility] Endocrinology. Let me know if you have [...] Endocrinology Natalya Jean MD [address] [place] [address] (Wo rk) documented as of this encounter Visit Diagnoses Not on filedocumented in this encounter Additional Health Concerns Assessment Noted Time PHQ-9 Depression Total Score: 10 05/09/2017 8:01 AM CS T documented as of this encounter Care Teams Line Installer Relationship Specialty Start Date End Date Violette Bolden CNM PCP - General 09/04/21 [facility] [address] [place] [address] Gina Bautista, Physician Chip Separator 01/31/15 [address] [address] [place] [address] Vidya Espinal APRN CNM Career Services Assistant 08/21/[address] [address] [facility] 08/21/21 [facility] [address] [place] [address] Marissa Jean MD Hospitalist Endocrinology, 09/04/21 [address] Diabetes, and [address] [place], [place] [id number] documented as of this encounter
--- OUTSIDE RECORDS SUMMARY | 2021-10-16 00:58 | XMS_ITS | Encounter Summary ---
:1985 Author Organization [place] Address [address] [place] [address]. [place] [address] Care Team Providers Name Role Phone Gina Bautista PA-C Primary Care Provider [phone] Gina Bautista PA-C Unavailable [phone] Gina Bautista PA-C Unavailable [phone] Gina Bautista PA-C Unavailable [phone] Reason for Visit Reason Comments URI Encounter Details Date Type Department Care Team Description 06/25/2015 Office Visit [facility] Serum, Ro Viral URI (Primary Dx); Yony Yarbrough MD Acute pharyngitis, unspecified etiology [address] [facility] [place] [address] [place] [phone] [address] [place], [place] [address] Social History Tobacco Use [...] CDT documented in this encounter Progress Notes Ro Salgado MD - 06/25/2015 5:19 PM CDT [...] list, Allergies, and Medical/Social/Surgical histories reviewed in [facility] andupdated as appropriate. OBJECTIVE: BP 96/56 mmHg [...] Follow up with Provider - alexis Salgado [facility] [place] documented in this encounter Nursing Notes [...] Endocrinology Natalya Jean MD [address] [place] [address] (Wo rk) documented as of this encounter [...] Component Value Ref Test Analysis Performed At [place] Range Method Time Signature Specimen Throat [facility] [place] Culture Micro No Beta [place] Streptococcus CLINICS isolated [place] Micro Report FINAL 06/27/2015 [facility] Specimen Anatomical Collection Method Collection Time Receive d Time (Source) Location / / Volume Laterality 06/25/2015 5:20 PM 6 5:25 CDT PM CDT Ro Salgado MD LAB - MICRO GENERAL ORDERABL ES Performing Organization Address City/State/ZIP Code Phon e Number [facility] [address] [facility] [place] [address] Strep, Rapid Screen (06/25/2015 5:20 PM CDT) Component Value Ref Test Analysis Performed At [facility] Range Method Time Signature Specimen Throat [facility] [place] Rapid Strep A NEGATIVE: No Group A strepto coccal antigen detected by immunoassay, await [place] Screen culture report. CLINICS [place] Micro Report FINAL 06/25/2015 [place] Status CLINICS [place] Specimen Anatomical Collection Method Collection Time Receive d Time (Source) Location / / Volume Laterality Specimen from 06/25/2015 5:20 PM 06/25/19 16 5:25 throat CDT PM CDT (specimen) Ro Salgado MD LAB - MICRO GENERAL ORDERABL ES Performing Organization Address City/State/ZIP Code Phon e Number [facility] [place] [address] [facility] [place] [address] documented in this encounter Visit Diagnoses Diagnosis Viral URI - Primary Acute upper respiratory infections of un specified site Acute pharyngitis, unspecified etiology documented in this encounter Additional Health Concerns Assessment Noted Time PHQ-9 Depression Total Score: 16 04/26/2015 8:54 AM CS T documented as of this encounter Care Teams Interpreter For The Deaf Relationship Specialty Start Date End Date Gina Bautista, PCP - General Physician Assembler Installer General 5 09/03/21 PA-C [address] [place] [address] Gina Bautista, PCP - Assigned PCP 01/12/15 05/11/18 PA-C 83161 [place] [address] Gina Bautista, Physician Assembler Installer General 01/31/15 PA-C 22480 [place], [place] [address] Gina Bautista, Assigned PCP 01/12/15 PA-C [address] [place] [address] documented as of this encounter
--- OUTSIDE RECORDS SUMMARY | 2021-10-16 00:58 | XMS_ITS | Encounter Summary ---
:1985 Author Organization [place] Address [address] [place] [address]. [place] [address] Care Team Providers Name Role Phone Gina Bautista PA-C Primary Care Provider [phone] Gina Bautista PA-C Unavailable [phone] Gina Bautista PA-C Unavailable [phone] Gina Bautista PA-C Unavailable [phone] Reason for Visit Reason Comments Panel Management Needs PAP Encounter Details Date Type Department Care Team Description 03/13/2015 [facility] Jigna Vance PA-C (Needs PAP ) [address] [address] [id number] Social History Tobacco Use Types Packs/Day Years [...] for provider review: None Marianne Tony CMA (AAUT) 03/13/2015 3:48 PM QUALITY CONSULTANT documented in this encounter Plan of Treatment Upcoming Encounters Date Type Specialty Care Team Description 01/07/2022 Virtual Visit Endocrinology Natalya Jean MD [address] [place] [address] (Wo rk) documented as of this encounter Visit Diagnoses Not on filedocumented in this encounter Additional Health Concerns Assessment Noted Time PHQ-9 Depression Total Score: 13 02/01/2015 7:29 AM CS T documented as of this encounter Care Teams Counter Supply Worker Relationship Specialty Start Date End Date Gina Bautista, PCP - General Physician Industrial Laborer 5 09/03/21 PA-C [address] [place] [address] Gina Bautista, PCP - Assigned PCP 01/12/15 05/11/18 PA-C 23286 [place] [address] Gina Bautista, Physician Industrial Laborer 01/31/15 PA-C 10017 [place] [address] Gina Bautista, Assigned PCP 01/12/15 PA-C 62522 [place] [address] documented as of this encounter
--- OUTSIDE RECORDS SUMMARY | 2021-10-16 00:58 | XMS_ITS | Encounter Summary ---
:1985 Author Organization [place] Address [address] [place] [address] Care Team Providers Name Role Phone Unavailable Primary Care Provider Unavailable Encounter Details Date Type Department Care Team Description 09/30/2005 Results Only [facility] [place] [address] (Wo rk) Social History Tobacco Use Types Packs/Day Years Used Date Never Assessed Sex Assigned at Date Recorded Not on file documented as of this encounter Plan of Treatment Upcoming Encounters Date Type Specialty Care Team Description 01/07/2022 Virtual Visit Endocrinology Natalya Jean MD [address] [place] [address] (Wo rk) documented as of this encounter [...]
--- OUTSIDE RECORDS SUMMARY | 2021-10-16 00:58 | XMS_ITS | Encounter Summary ---
:1985 Author Organization [place] Address [address] [place] [address] Care Team Providers Name Role Phone Unavailable Primary Care Provider Unavailable Encounter Details Date Type Department Care Team Description 05/23/2005 Emergency room [facility] [place] [address] [place] [address] (Wo rk) Social History Tobacco Use Types Packs/Day Years Used Date Never Assessed Sex Assigned at Date Recorded Not on file documented as of this encounter Progress Notes Interface, Solar Energy System Installer Helper - 05/24/2005 10:20 PM PAINT SPECIALIST FINAL CHIEF COMPLAINT: Left lower quadrant pain. [...] home. Tylenol No. 3 for discomfort, Motrin [id number]. Follow up with primary care physician in 3-5 days, clear liquids x8 hours and advance diet as tolerated. Return to emergency department if symptoms get worse. Electronically signed on 05/24/2005 22:19 by GLORY KRAFT MD MT: [id number] Name: CARLEY CHAN MRN: [id number] Account: [id number] : 1985 Visit Date: 05/23/2005 Document: [id number] cc: [facility] T SPECIALIST Interface, Solar Energy System Installer Helper - 05/24/2005 3:26 PM PAINT SPECIALIST PRELIMINARY CHIEF COMPLAINT: Left lower quadrant pain. [...] home. Tylenol No. 3 for discomfort, Motrin [id number]. Follow up with primary care physician in 3-5 days, clear liquids x8 hours and advance diet as tolerated. Return to emergency department if symptoms get worse. MD Khloe DUNAWAY: 05/23/2005 MT: [id number] Name: CARLEY CHAN Account: [id number] : 1985 Visit Date: 05/23/2005 Document: [id number] cc: [facility] T SPECIALIST documented in this encounter Plan of Treatment Upcoming Encounters Date Type Specialty Care Team Description 01/07/2022 Virtual Visit Endocrinology Natalya Jean MD [address] [place] [address] (Wo rk) documented as of this encounter Visit Diagnoses Not on filedocumented in this encounter
--- OUTSIDE RECORDS SUMMARY | 2021-10-16 00:58 | XMS_ITS | Encounter Summary ---
:1985 Author Organization [facility] Address [address] [place] [address]. [place] [address] Care Team Providers Name Role Phone Unavailable Primary Care Provider Unavailable Encounter Details Date Type Department Care Team Description 07/21/2004 Historic Cafeteria Helper INTERFACED REPORT Ilana Levy Social History Tobacco Use Types Packs/Day Years Used Date Never Assessed Sex Assigned at Date Recorded Not on file documented as of this encounter Progress Notes Interface, Cafeteria Helper - 02/12/2011 3:18 AM POCKETED SPRING ASSEMBLER : 89 CHIEF COMPLAINT: Ankle and knee [...] EPIDEMIOLOGIC HISTORY: Patient attends school. They visited [place] in May 2004. PHYSICAL EXAMINATION: VITAL SIGNS: [...] appointment. [id number] KELLIE LEVY MD [place]: Document: [id number] CC: KELLIE LEVY MD [place], [place] Name: MR#: CARLEY CHAN -23 EMERGENCY ROOM ENCOUNTER Page 2 of 2 LCN: ERC DSC: 07/21/2004 [place], [place] Name: MR#: CARLEY CHAN [id number] : Admit Date: Account #: 1985 07/21/2004 [id number] Doctor: KELLIE LEVY MD EMERGENCY ROOM ENCOUNTER Page 1 of 2 ETED SPRING ASSEMBLER documented in this encounter Plan of Treatment Upcoming Encounters Date Type Specialty Care Team Description 01/07/2022 Virtual Visit Endocrinology Natalya Jean MD [address] [place] [address] (Wo rk) documented as of this encounter Visit Diagnoses Not on filedocumented in this encounter
--- OUTSIDE RECORDS SUMMARY | 2021-10-16 00:58 | XMS_ITS | Encounter Summary ---
:1985 Author Organization [facility] Address [address] [place] [address]. [place] [address] Care Team Providers Name Role Phone Gina Bautista PA-C Primary Care Provider [phone] Gina Bautista PA-C Unavailable [phone] Gina Bautista PA-C Unavailable [phone] Gina Bautista PA-C Unavailable [phone] Reason for Visit Reason Comments Sinus Problem Encounter Details Date Type Department Care Team Description 07/27/2015 Office Visit [facility] Gian Bautista Acute recurrent Clinic Lucia Vance PA-C maxillary sinusitis [address] (Primary Dx) [place], [place] [address] [phone] Social History Tobacco Use Types Packs/Day Years [...] She has been treated twice by in [place] with Amoxicillin without relief No fever, very [...] the plan of care. Gina Bautista PA-C [facility] documented in this encounter Nursing Notes Monica [...] phone number for results from this visit [phone] OK to leave message Marianne Toyn CMA (AAMA) 07/27/2015 8:58 AM documented in this encounter Plan of Treatment Upcoming Encounters Date Type Specialty Care Team Description 01/07/2022 Virtual Visit Endocrinology Natalya Jean MD [address] [place] [address] (Wo rk) documented as of this encounter Visit Diagnoses Diagnosis Acute recurrent maxillary sinusitis - Pr imary Acute maxillary sinusitis documented in this encounter Additional Health Concerns Assessment Noted Time PHQ-9 Depression Total Score: 16 04/26/2015 8:54 AM CS T documented as of this encounter Care Teams Tig Welder Relationship Specialty Start Date End Date Gina Bautista, PCP - General Physician Machine Designer 5 09/03/21 [place] [address] [place] [address] Gina Bautista, PCP - Assigned PCP 01/12/15 05/11/18 PA-C [address] [place] [address] Gina Bautista, Physician Machine Designer 01/31/15 PA-C [address] [place] [address] Gina Bautista, Assigned PCP 01/12/15 PA-C [address] [place] [address] documented as of this encounter
--- OUTSIDE RECORDS SUMMARY | 2021-10-16 00:58 | XMS_ITS | Encounter Summary ---
:1985 Author Organization [facility] Address [address] [place] [address] Care Team Providers Name Role Phone Gina Bautista PA-C Primary Care Provider [phone] Gina Bautista PA-C Unavailable [phone] Gina Bautista PA-C Unavailable [phone] Gina Bautista PA-C Unavailable [phone] Encounter Details Date Type Department Care Team Description 04/27/2015 Orders Only [facility] Iro n deficiency anemia, [place] [facility] unspecified iron [address] [place] [address] Social History Tobacco Use Types Packs/Day [...] Endocrinology Natalya Jean MD [address] [place], [place] [address] (Wo rk) documented as of this encounter Procedures Procedure Name Priority Date/Time Associated Diagnosis Comme nts IRON AND IRON Routine 04/27/2015 11:50 AM Iron deficiency Resu lts for this BINDING CAPACITY SLOT FLOOR PERSON anemia, unspecified proc edure are in iron deficiency the results section. FERRITIN Routine 04/27/2015 11:50 AM Iron deficiency Resul ts for this SLOT FLOOR PERSON anemia, unspecified procedur e are in iron deficiency the results section. documented in this encounter Results (ABNORMAL) Iron and iron binding capacity (04/27/2015 11:50 AM SLOT FLOOR PERSON) Patholo gist Method Time Signature Iron 13 (L) 35 - 180 [facility] ug/dL [facility] Iron Binding 619 (H) 240 - 430 [place] Cap ug/dL [facility] Iron Saturation 2 (L) 15 - 46 % [place] Index [facility] Specimen Anatomical Collection Method Collection Time Receive d Time (Source) Location / / Volume Laterality Blood specimen 04/27/2015 11:50 6 (specimen) AM SLOT FLOOR PERSON 11:51 AM SLOT FLOOR PERSON Gina Bautista PA-C LAB - BLOOD ORDERABLES Performing Organization Address City/[facility]/ZIP [facility] Phon e Number [facility] [address] [place] [phone] (ABNORMAL) Ferritin (04/27/2015 11:50 AM SLOT FLOOR PERSON) P athologist Signature Ferritin 2 (L) 12 - 150 [facility]3] ng/mL [facility] Specimen Anatomical Collection Method Collection Time Receive d Time (Source) Location / / Volume Laterality Blood specimen 04/27/2015 11:50 6 (specimen) AM SLOT FLOOR PERSON 11:51 AM SLOT FLOOR PERSON Gina Bautista PA-C LAB - BLOOD ORDERABLES Performing Organization Address City/[facility] Phon e Number [facility] [address] [place] [address] documented in this encounter Visit Diagnoses Diagnosis Iron deficiency anemia, unspecified iron deficiency documented in this encounter Additional Health Concerns Assessment Noted Time PHQ-9 Depression Total Score: 16 04/26/2015 8:54 AM CS T documented as of this encounter Care Teams Medical Resident Relationship Specialty Start Date End Date Gina Bautista PCP - General Physician Hand Dry Cleaner 5 09/03/21 [place] [address] [place] [address] Gina Bautista, PCP - Assigned PCP 01/12/15 05/11/18 PA-C [address] [place], [place] [id number] Gina Bautista, Physician Hand Dry Cleaner 01/31/15 PA-C [address] [place], [place] [address] Gina Bautista, Assigned PCP 01/12/15 PA-C [address] [place], [place] [address] documented as of this encounter
--- OUTSIDE RECORDS SUMMARY | 2021-10-16 00:58 | XMS_ITS | Encounter Summary ---
:1985 Author Organization [facility] Address [address] [place] [address]. [place] [address] Care Team Providers Name Role Phone Gina Bautista PA-C Primary Care Provider [phone] Gina Bautista PA-C Unavailable [phone] Gina Bautista PA-C Unavailable [phone] Gina Bautista PA-C Unavailable [phone] Encounter Details Date Type Department Care Team Description 04/27/2015 Telephone [facility] Lyle Bautista [place] PA-C [address] [place] [address] [place] [id number] (Wo rk) Social History Tobacco Use Types Packs/Day Years Used Date Never Smoker Smokeless Tobacco: Never Used Alcohol Use Standard Drinks/Week Comments Yes 0 (1 standard drink = 0.6 oz pure alcoho l) Sex Assigned at Date Recorded Not on file documented as of this encounter Miscellaneous Notes Telephone Encounter - Gina Bautista PA-C - 04/27/2015 8:25 AM PIPELINES LABORER Spoke with patient regarding labs. Will restart Synthroid 75mcg daily, recheck in 6-8 weeks Discussed low hemoglobin, will have her get labs today and then start iron replacement BID, recheck in 6-8 weeks as well. Discussed remained of labs. Gina Bautista PA-C LINES LABORER Telephone Encounter - Monica Tony CMA - 04/27/2015 8:20 AM CST Per patient, placed letter at front man for patient belt picker Marianne Chavo CAMPOS (AAMI) 04/27/2015 8:21 AM LINES LABORER Telephone Encounter - Gina Bautista PA-C - 04/27/2015 8:13 AM PIPELINES LABORER Left Vm for patient, would like to discuss labs results. Gina Bautista PA-C LINES LABORER documented in this encounter Plan of Treatment Upcoming Encounters Date Type Specialty Care Team Description 01/07/2022 Virtual Visit Endocrinology Natalya Jean MD [address] [place] [address] (Wo rk) documented as of this encounter Visit Diagnoses Not on filedocumented in this encounter Additional Health Concerns Assessment Noted Time PHQ-9 Depression Total Score: 16 04/26/2015 8:54 AM CS T documented as of this encounter Care Teams Qa Developer Relationship Specialty Start Date End Date Gina Bautista, PCP - General Physician Flux Mixer 5 09/03/21 [place] [address] [place] [id number] Gina Bautista PCP - Assigned PCP 01/12/15 05/11/18 [place] [address] [place] [address] Gina Bautista, Physician Flux Mixer 01/31/15 [address] [address] [place], [place] [address] Gina Bautista, Assigned PCP 01/12/15 [place] [address] [place], [place] [phone] documented as of this encounter
--- OUTSIDE RECORDS SUMMARY | 2021-10-16 00:58 | XMS_ITS | Encounter Summary ---
:1985 Author Organization [facility] Address [address] [place] [address]. [place] [address] Care Team Providers Name Role Phone Gina Bautista PA-C Primary Care Provider [phone] Gina Bautista PA-C Unavailable [phone] Gina Bautista PA-C Unavailable [phone] Gina Bautista PA-C Unavailable [phone] Reason for Visit Reason Onset Date Comments Patient Request for Note/Letter 04/26/2015 Encounter Details Date Type Department Care Team Description 04/26/2015 Telephone [facility] Gina Bautista Request for Clinic Jigna Vance PA-C Note/Letter [address] [place] [facility] [place] [address] [phone] Social History Tobacco Use Types Packs/Day Years Used Date Never Smoker Smokeless Tobacco: Never Used Alcohol Use Standard Drinks/Week Comments Yes 0 (1 standard drink = 0.6 oz pure alcoho l) Sex Assigned at Date Recorded Not on file documented as of this encounter Miscellaneous Notes Telephone Encounter - Gina Bautista PA-C - 04/27/2015 8:14 AM CRUCIBLE PACKER Note for patient provided for missed work, given to Meg. Gina Bautista PA-C IBLE PACKER Telephone Encounter - Irma Boggs, RN - [...] pcp in office Thursday. Irma Boggs RN IBLE PACKER documented in this encounter Plan of Treatment Upcoming Encounters Date Type Specialty Care Team Description 01/07/2022 Virtual Visit Endocrinology Natalya Jean MD [address] [place] [address] (Wo rk) documented as of this encounter Visit Diagnoses Not on filedocumented in this encounter Additional Health Concerns Assessment Noted Time PHQ-9 Depression Total Score: 16 04/26/2015 8:54 AM CS T documented as of this encounter Care Teams Seat Pack Inspector Relationship Specialty Start Date End Date Gina Bautista, PCP - General Physician Hydroelectric Station Operator 5 09/03/21 PA-C [address] [place] [address] Gina Bautista, PCP - Assigned PCP 01/12/15 05/11/18 PA-C [address] [place] [address] Gina Bautista, Physician Hydroelectric Station Operator 01/31/15 [place] [address] [place] [address] Gina Bautista, Assigned PCP 01/12/15 [address] [address] [place] [address] documented as of this encounter
--- OUTSIDE RECORDS SUMMARY | 2021-10-16 00:58 | XMS_ITS | Encounter Summary ---
:1985 Author Organization [place] Address [address] [place] [address]. [place] [address] Care Team Providers Name Role Phone Paul Palumbo PA-C Primary Care Provider [phone] Paul Palumbo PA-C Unavailable [phone] Paul Palumbo PA-C Unavailable [phone] Paul Palumbo PA-C Unavailable [phone] Reason for Referral Consultation - Closed Specialty Diagnoses / Procedures Referred By Contact Refer red To Contact Diagnoses Low hemoglobin S/P gastric bypass Vitamin B 12 deficiency Paul Palumbo [facility] [address] [place] [address] [address] [place] [address] Phone: [phone] Fax: Referral ID Status Reason Start Date Expiration Date Visits Requ ested Visits Authorized [id number] Closed 12/24/2016 12/24/2017 1 1 POLICE ARTIST - Closed Specialty Diagnoses / Procedures Referred By Contact Refer red To Contact Diagnoses Family planning counseling IUD check up Paul Palumbo [facility] [place] [address] [place] [address] [address] [place] [address] Phone: Referral ID Status Reason Start Date Expiration Date Visits Requ ested Visits Authorized [id number] Closed 12/19/2016 12/19/2017 1 1 Reason for Visit Reason Comments Physical Flu Shot Encounter Details Date Type Department Care Team Description 12/19/2016 Office Visit [facility] Paul Palumbo general medical examination at a health care facility (Primary Dx); Clinic Jigna Vance PA-C 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 - POLICE ARTIST REFERRAL 9. Family planning counseling Patient interested in future , was high risk in past, had 4 miscarriages. Will refer to POLICE ARTIST to discuss future conception. - POLICE ARTIST REFERRAL 10. Need for prophylactic vaccination and inoculation against influenza - FLU VAC, SPLIT VIRUS IM > 3 YO (QUADRIVALENT) [39462] - Vaccine Administration, Initial [58913] COUNSELING: Reviewed preventive health counseling, as reflected [...] hemoglobin and mood issues. Paul Palumbo PA-C [facility] Answers for HPI/ROS submitted [...] Endocrinology Natalya Jean MD [address] [place] [address] (Wo rk) Scheduled Referrals Name Type Priority Associated Diagnoses Order S chedule POLICE ARTIST REFERRAL Referral Routine Family planning Ordered: 12/19/2016 [...] or this PM CDT medical examination at [facility] are in a health care facility the [...] T4 reflex FUTURE 2mo (04/10/2017 2:35 PM SWITCHBOARD RECEPTIONIST) athologist Signature TSH 10.56 (H) 0.40 - 04/12/2017 [facility] 4.00 mU/L 1:28 PM SWITCHBOARD RECEPTIONIST [facility] Specimen Anatomical Collection Method Collection Time Receive d Time (Source) Location / / Volume Laterality Blood specimen 04/10/2017 2:35 PM 018 2:36 (specimen) SWITCHBOARD RECEPTIONIST PM SWITCHBOARD RECEPTIONIST Paul Palumbo PA-C LAB - BLOOD ORDERABLES Performing Organization Address City/State/ZIP Code Phon e Number [facility] [address] [place] [address] (ABNORMAL) Vitamin D Deficiency (04/10/2017 2:35 PM SWITCHBOARD RECEPTIONIST) athologist Signature Vitamin D 13 (L) 20 - 75 04/11/2017 [facility] Deficiency ug/L 11:46 AM SWITCHBOARD RECEPTIONIST [facility] Comment: Season, race, dietary intake, and treatm ent affect the concentration of 35-qsuynxd-Kakddrn D. Values may decreas e during winter [...] specimen 04/10/2017 2:35 PM 018 2:36 (specimen) SWITCHBOARD RECEPTIONIST PM SWITCHBOARD RECEPTIONIST Paul Palumbo PA-C LAB - BLOOD ORDERABLES Performing Organization Address City/State/ZIP Code Phon e Number [facility] [address] [place] [address] [facility] T4 free (12/19/2016 3:33 PM CDT) P athologist Signature T4 Free 1.00 0.76 - 1.46 12/20/2016 [facility] ng/dL 1:20 PM CDT [facility] Specimen Anatomical Collection Method Collection Time Receive d Time (Source) Location / / Volume Laterality 12/19/2016 3:33 PM 7 3:34 CDT PM CDT Paul Palumbo PA-C LAB - BLOOD ORDERABLES Performing Organization Address City/[facility]/ZIP Code Phon e Number [facility] [address] [place] [address] WBC Differential (12/19/2016 3:33 PM CDT) [facility] gist Method Time Signature Diff Method Automated 12/19/2016 [facility] Method 9:06 PM [facility] % Neutrophils 64.0 % 12/19/2016 [facility] 9:06 PM [facility] % Lymphocytes 25.2 % 12/19/2016 [place] 9:06 PM [facility] % Monocytes 7.7 % 12/19/2016 [place] 9:06 PM [facility] % Eosinophils 2.3 % 12/19/2016 [place] 9:06 PM [facility] % Basophils 0.5 % 12/19/2016 [place] 9:06 PM [facility] % Immature 0.3 % 12/19/2016 [facility] Granulocytes 9:06 PM [facility] Nucleated RBCs 0 0 /100 12/19/2016 [facility] 9:06 PM [facility] Absolute 4.2 1.6 - 8.3 12/19/2016 [facility] Neutrophil 10e9/L 9:06 PM [facility] Absolute 1.7 0.8 - 5.3 12/19/2016 [facility] Lymphocytes 10e9/L 9:06 PM [facility] Absolute 0.5 0.0 - 1.3 12/19/2016 [facility] Monocytes 10e9/L 9:06 PM [facility] Absolute 0.2 0.0 - 0.7 12/19/2016 [facility] Eosinophils 10e9/L 9:06 PM [facility] Absolute 0.0 0.0 - 0.2 12/19/2016 [facility] Basophils 10e9/L 9:06 PM [facility] Abs Immature 0.0 0 - 0.4 12/19/2016 [facility] Granulocytes 10e9/L 9:06 PM [facility] Absolute 0.0 12/19/2016 [facility] Nucleated RBC 9:06 PM [facility] Anisocytosis Slight 12/19/2016 [facility] 9:06 PM [facility] Ovalocytes Slight 12/19/2016 [facility] 9:06 PM [facility] Microcytes Present 12/19/2016 [facility] 9:06 PM [facility] Platelet Normal 12/19/2016 [facility] Estimate 9:06 PM [facility] Specimen Anatomical Collection Method Collection Time Receive d Time (Source) Location / / Volume Laterality 12/19/2016 3:33 PM 7 4:07 CDT PM CDT Paul Palumbo PA-C LAB - BLOOD ORDERABLES Performing Organization Address City/State/ZIP Code Phon e Number [facility] [address] [address] [facility] [address] [phone] Reticulocyte Count (12/19/2016 3:33 PM CDT) P athologist Signature % Retic 1.1 0.5 - 2.0 12/19/2016 [place] % 7:25 PM [facility] Absolute Retic 43.0 25 - 95 12/19/2016 [place] 10e9/L 7:25 PM CDT [facility] Specimen Anatomical Collection Method Collection Time Receive d Time (Source) Location / / Volume Laterality Blood specimen 12/19/2016 3:33 PM 017 4:07 (specimen) CDT PM CDT Paul Palumbo PA-C LAB - BLOOD ORDERABLES Performing Organization Address City/State/ZIP Code Phon e Number M [facility] [address] [address] [facility] [address] [phone] Blood Morphology Pathologist Review (12/19/2016 3:33 PM CDT) Component Value Ref Test Analysis Performed Pathologis t Range Method Time At Signature Copath Patient Name: TASHA PHELAN Report MR#: [id number] Specimen #: [id number] Collected: 12/19/2016 Received: 12/22/2016 Reported: 12/22/2016 10:01 [...] 12-22-2016 @ 10:01 AM). CPT Codes: A: 09542-NQRC TESTING LAB LOCATION: [facility] [address] [place], [place] ??[address] COLLECTION SITE: Client: ??[facility] Location: ??[facility] (R) Specimen Anatomical Collection Method [...] 12/19/2016 [facility] pg/mL 10:23 PM CDT [facility] Specimen Anatomical Collection Method Collection Time Receive d Time (Source) Location / / Volume Laterality Blood specimen 12/19/2016 3:33 PM 017 3:34 (specimen) CDT PM CDT Paul Palumbo PA-C LAB - BLOOD ORDERABLES Performing Organization Address City/State/ZIP Code Phon e Number [phone] [place] [address] (ABNORMAL) Vitamin D Deficiency (12/19/2016 3:33 PM CDT) athologist Signature Vitamin D 17 (L) 20 - 75 12/21/2016 [facility] Deficiency ug/L 3:23 PM CDT [facility] Comment: Season, race, dietary intake, and treatm ent affect the concentration of 32-idfwgpy-Hmfidup D. Values may decreas e during winter [...] Organization Address City/State/ZIP Code Phon e Number [facility] [address] [place], [place] [phone] [place] [address] (ABNORMAL) Comprehensive metabolic panel (12/19/2016 3:33 PM CDT) [facility] gist Method Time Signature Sodium 140 133 - 144 12/20/2016 [place] mmol/L 12:54 PM CDT [facility] Potassium 4.2 3.4 - 5.3 12/20/2016 [place] mmol/L 12:54 PM CDT [facility] Chloride 110 (H) 94 - 109 12/20/2016 [place] mmol/L 12:54 PM CDT [facility] Carbon Dioxide 21 20 - 32 12/20/2016 [facility] mmol/L 12:54 PM CDT [facility] Anion Gap 9 3 - 14 12/20/2016 [place] mmol/L 12:[address] [facility] Glucose 85 70 - 99 12/20/2016 [place] mg/dL 12:54 PM CDT [facility] Urea Nitrogen 9 7 - 30 12/20/2016 [place] mg/dL 12:54 PM CDT [facility] Creatinine 0.75 0.52 - 12/20/2016 [facility] 1.04 mg/dL 12:54 PM CDT [facility] GFR Estimate >90 >60 12/20/2016 [place] mL/min/1.7 12:54 PM CDT [facility]INICS m2 [facility] Comment: Non GFR Calc GFR Estimate If >90 >60 mL/min/1.7m2 12/20/2016 12:54 PM [place] [facility] Black T [facility] Comment: GFR Calc Calcium 8.7 8.5 - 10.1 12/20/2016 12:54 PM [place] [facility] mg/dL CDT [facility] Bilirubin Total 0.4 0.2 - 1.3 mg/dL 12/20/2016 12:54 P [facility] Albumin 3.9 3.4 - 5.0 g/dL 12/20/2016 12:54 PM [facility] Protein Total 7.6 6.8 - 8.8 g/dL 12/20/2016 12:54 PM [facility] Alkaline Phosphatase 61 40 - 150 U/L 12/20/2016 1:02 PM [facility] ALT 20 0 - 50 U/L 12/20/2016 12:54 PM [facility] AST 15 0 - 45 U/L 12/20/2016 12:54 PM [facility] Specimen Anatomical Collection Method Collection Time Receive d Time (Source) Location / / Volume Laterality Blood specimen 12/19/2016 3:33 PM 017 3:34 (specimen) CDT PM CDT Paul Palumbo PA-C LAB - BLOOD ORDERABLES Performing Organization Address City/[facility]/ZIP Code Phon e Number [facility] [address] [place] [address] (ABNORMAL) TSH with free T4 reflex (12/19/2016 3:33 PM CDT) athologist Signature TSH 8.78 (H) 0.40 - 12/20/2016 [facility] 4.00 mU/L 1:02 PM CDT [facility] Specimen Anatomical Collection Method Collection Time Receive d Time (Source) Location / / Volume Laterality Blood specimen 12/19/2016 3:33 PM 017 3:34 (specimen) CDT PM CDT Paul Palumbo PA-C LAB - BLOOD ORDERABLES Performing Organization Address City/[facility]/ZIP Code Phon e Number [facility] [address] [place] [address] (ABNORMAL) Iron and iron binding capacity (12/19/2016 3:33 PM CDT) Patholo gist Method Time Signature Iron 10 (L) 35 - 180 12/20/2016 [place] ug/dL 12:54 PM CDT [facility] Iron Binding 528 (H) 240 - 430 12/20/2016 [place] Cap ug/dL 12:54 PM CDT [facility] Iron Saturation 2 (L) 15 - 46 % 12/20/2016 [facility] Index 12:54 PM CDT [facility] Specimen Anatomical Collection Method Collection Time Receive d Time (Source) Location / / Volume Laterality Blood specimen 12/19/2016 3:33 PM 017 3:34 (specimen) CDT PM CDT Paul Palumbo PA-C LAB - BLOOD ORDERABLES Performing Organization Address City/[facility]/ZIP Code Phon e Number [facility] [address] [place] [address] (ABNORMAL) Ferritin (12/19/2016 3:33 PM CDT) athologist Signature Ferritin 2 (L) 12 - 150 12/20/2016 [facility] ng/mL 12:55 PM CDT [facility] Specimen Anatomical Collection Method Collection Time Receive d Time (Source) Location / / Volume Laterality Blood specimen 12/19/2016 3:33 PM 017 3:34 (specimen) CDT PM CDT Paul Palumbo PA-C LAB - BLOOD ORDERABLES Performing Organization Address City/[facility]/ZIP Code Phon e Number [facility] [address] [place] [address] (ABNORMAL) CBC with platelets (12/19/2016 3:33 PM CDT) P athologist Signature WBC 6.4 4.0 - 11.0 12/19/2016 [place] 10e9/L 3:43 PM CDT [facility] RBC Count 3.97 3.8 - 5.2 12/19/2016 [place] 10e12/L 3:43 PM CDT [facility] [place] Hemoglobin 7.2 (L) 11.7 - 15.7 12/19/2016 [place] g/dL 3:43 PM CDT [facility] Comment: Critical Value called to and read back b y TO PAUL PALUMBO PAC ON12/19/16 1540 DA Hematocrit 25.5 (L) 35.0 - 47.0 % 12/19/2016 3:43 PM CDT [facility] MCV 64 (L) 78 - 100 fl 12/19/2016 3:43 PM CDT [facility] MCH 18.1 (L) 26.5 - 33.0 pg 12/19/2016 3:43 PM CDT [facility] MCHC 28.2 (L) 31.5 - 36.5 g/dL 12/19/2016 3:43 PM CDT [facility] Comment: Results confirmed by repeat mónica t RDW 17.4 (H) 10.0 - 15.0 % 12/19/2016 3:43 PM [facility] [place] Platelet Count 375 150 - 450 10e9/L 12/19/2016 3:43 PM [facility] CDT [place] Specimen Anatomical Collection Method Collection Time Receive d Time (Source) Location / / Volume Laterality Blood specimen 12/19/2016 3:33 PM 017 3:34 (specimen) CDT PM CDT Paul Palumbo PA-C LAB - BLOOD ORDERABLES Performing Organization Address City/State/ZIP Code Phon e Number [facility] [address] [address] Pap imaged thin layer screen reflex to HPV if ASCUS - recommend age 25 - 29 (12/19/2016 3:05 PM CDT) Component Value Ref Test Analysis Performed At [facility] Range Method Time Signature PAP NIL COPATH Copath Report COPATH Patient Name: TASHA PHELAN MR#: [id number] Specimen #: [id number] Collected: 12/19/2016 Received: 12/22/2016 Reported: 12/23/2016 13:10 [...] MATEUSZ Rodrigez (ASCP) Processed and screened at [facility] CLINICAL HISTORY: Currently not having periods, Intra-Uterine Device, Papanicolaou Test Limitations: ??Cervical cytology is a scre ening test with limited sensitivity; regular screening is critical for cancer prevention; Pap tests are primarily effective for the diagnosis/prevention of squamous cell carcinoma, not adenoca rcinomas or other cancers. TESTING LAB LOCATION: [address] ??[address] COLLECTION SITE: Client: ??[facility] Location: [facility] (R) Specimen (Source) Anatomical Collection Method Collection [...] documented as of this encounter Care Teams Primer Charging Tool Setter Relationship Specialty Start Date End Date Paul Palumbo, PCP - General Physician Internet Marketing Strategist 5 09/03/21 [place] [id number] [address], [place] [address] Paul Palumbo, PCP - Assigned PCP 01/12/15 05/11/18 [place] [address] [address], [place] [address] Paul Palumbo, Physician Internet Marketing Strategist 01/31/15 [place] [address] [address], [place] [address] Paul Palumbo, Assigned PCP 01/12/15 [place] [address] [address], [place] [address] documented as of this encounter
--- OUTSIDE RECORDS SUMMARY | 2021-10-16 00:58 | XMS_ITS | Encounter Summary ---
:1985 Author Organization [place] Address [address] [place] [address]. [place] [address] Care Team Providers Name Role Phone Unavailable Primary Care Provider Unavailable Encounter Details Date Type Department Care Team Description 05/23/2005 Historic Results INTERFACED REPORT Aleksandra Carrizales MD [address] [address] (Wo rk) Social History Tobacco Use Types Packs/Day Years Used Date Never Assessed Sex Assigned at Date Recorded Not on file documented as of this encounter Plan of Treatment Upcoming Encounters Date Type Specialty Care Team Description 01/07/2022 Virtual Visit Endocrinology Natalya Jean MD [address] [place] [phone] (Wo rk) documented as of this encounter Procedures Procedure Name Priority Date/Time Associated Comments Diagnosis WET PREPARATION STAT 05/23/2005 9:45 AM Result s for this CERTIFIED SHORTHAND REPORTER procedure are i n the results section. NEISSERIA GONORRHOEAE STAT 05/23/2005 9:45 AM Results for this PCR CERTIFIED SHORTHAND REPORTER procedure are i n the results section. CHLAMYDIA TRACHOMATIS STAT 05/23/2005 9:45 AM Results for this PCR CERTIFIED SHORTHAND REPORTER procedure are i n the results section. HCG QUALITATIVE URINE STAT 05/23/2005 9:20 AM Results for this CERTIFIED SHORTHAND REPORTER procedure are i n the results section. ROUTINE UA WITH STAT 05/23/2005 9:20 AM Result s for this MICROSCOPIC CERTIFIED SHORTHAND REPORTER procedure are i n the results section. HEMOGRAM DIFFERENTIAL STAT 05/23/2005 7:35 AM Results for this AND PLATELET CERTIFIED SHORTHAND REPORTER procedure are i n the results section. BASIC METABOLIC PANEL STAT 05/23/2005 7:35 AM Results for this CERTIFIED SHORTHAND REPORTER procedure are i n the results section. documented in this encounter Results Chlamydia trachomatis PCR (05/23/2005 9:45 AM CERTIFIED SHORTHAND REPORTER) Component Value Ref Test Analysis Performed At [facility] Method Time Signature Specimen Cervical MISYS Description Chlamydia Negative for C. MISYS Trachomatis PCR trachomatis rRNA by jewellery designer mediated amplification. Comment: A negative result by jewellery designer medi ated amplification does not preclude the presence of C. trachomatis infection be cause results are dependent on proper and adequate collection, absence of inh ibitors, and sufficient rRNA to be detected. Specimen Anatomical Collection Method Collection Time Receive d Time (Source) Location / / Volume Laterality 05/23/2005 9:45 AM 6 CERTIFIED SHORTHAND REPORTER 10:02 AM CERTIFIED SHORTHAND REPORTER Pediatrics [facility] LAB - MICRO GENERAL ORDERABL ES Performing Organization Address City/[facility]/ZIP Code Phon e Number MISYS Neisseria gonorrhoeae PCR (05/23/2005 9:45 AM CERTIFIED SHORTHAND REPORTER) [facility] Method Time Signature Specimen Cervical MISYS Descrip N Gonorrhea Negative for N. MISYS PCR gonorrhoeae rRNA by jewellery designer mediated amplification. Comment: A negative result by jewellery designer medi ated amplification does not preclude the presence of N. gonorrhoeae infection be cause results are dependent on proper and adequate collection, absence of inh ibitors, and sufficient rRNA to be detected. Specimen Anatomical Collection Method Collection Time Receive d Time (Source) Location / / Volume Laterality 05/23/2005 9:45 AM 6 CERTIFIED SHORTHAND REPORTER 10:02 AM CERTIFIED SHORTHAND REPORTER Pediatrics [facility] LAB - MICRO GENERAL ORDERABL ES Performing Organization Address City/State/ZIP Code Phon e Number [facility] Wet prep (05/23/2005 9:45 AM CERTIFIED SHORTHAND REPORTER) [facility] Method Time Signature Specimen Vagina MISYS Description Micro Report FINAL MISYS Status [id number] Wet Prep Few PMN'S MISYS seen Comment: No Trichomonas seen No yeast seen No clue cells seen Specimen Anatomical Collection Method Collection Time Receive d Time (Source) Location / / Volume Laterality 05/23/2005 9:45 AM 6 CERTIFIED SHORTHAND REPORTER 10:02 AM CERTIFIED SHORTHAND REPORTER Pediatrics [facility] LAB - MICRO GENERAL ORDERABL ES Performing Organization Address City/State/ZIP Code Phon e Number [facility] (ABNORMAL) Routine UA with microscopic (05/23/2005 9:20 AM CERTIFIED SHORTHAND REPORTER) [facility] Method Time Signature Source Midstream MISYS Urine Color Urine Yellow MISYS Appearance Urine Clear MISYS Glucose Urine Negative NEG mg/dL MISYS Bilirubin Urine Negative NEG MISYS Ketones Urine Negative NEG mg/dL MISYS Specific [place] 1.016 1.003 - MISYS Urine 1.035 Blood [...] Volume Laterality 05/23/2005 9:20 AM 6 7:48 CERTIFIED SHORTHAND REPORTER AM CERTIFIED SHORTHAND REPORTER [facility] LAB - URINE ORDERABLES Performing Organization Address City/[facility]/ZIP Code Phon e Number [facility] HCG qualitative urine (05/23/2005 9:20 AM CERTIFIED SHORTHAND REPORTER) athologist Signature HCG Qual Urine Negative NEG [facility] Specimen Anatomical Collection Method Collection Time Receive d Time (Source) Location / / Volume Laterality 05/23/2005 9:20 AM 6 7:48 CERTIFIED SHORTHAND REPORTER AM CERTIFIED SHORTHAND REPORTER [facility] LAB - URINE ORDERABLES Performing Organization Address City/[facility]/ZIP Code Phon e Number [facility] (ABNORMAL) Hemogram differential and platelet (05/23/2005 7:35 AM CERTIFIED SHORTHAND REPORTER) [facility] Method Time Signature MCV 84 77 - [...] Volume Laterality 05/23/2005 7:35 AM 6 7:48 CERTIFIED SHORTHAND REPORTER AM CERTIFIED SHORTHAND REPORTER [facility] LAB - BLOOD ORDERABLES Performing Organization Address City/State/ZIP Code Phon e Number [facility] Basic metabolic panel (05/23/2005 7:35 AM CERTIFIED SHORTHAND REPORTER) P athologist Signature Sodium 141 133 - [...] Volume Laterality 05/23/2005 7:35 AM 6 7:48 CERTIFIED SHORTHAND REPORTER AM CERTIFIED SHORTHAND REPORTER [facility] LAB - BLOOD ORDERABLES Performing Organization Address City/State/ZIP Code Phon e Number [facility] documented in this encounter Visit Diagnoses Not on filedocumented in this encounter
--- OUTSIDE RECORDS SUMMARY | 2021-10-16 00:58 | XMS_ITS | Encounter Summary ---
:1985 Author Organization [place] Address [address] [place] [address]. 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; [address] [place] Adjustment disorder with dep ressed mood; [place] [address] Iron deficiency anemia, unspecified iron deficiency [id number] [...] Comments Blood Pressure 126/62 04/25/2015 1:02 PM MANAGEMENT ASSISTANT Pulse 80 04/25/2015 1:02 PM MANAGEMENT ASSISTANT Temperature 36.6 ??C (97.9 ??F) 04/25/2015 1:02 PM MANAGEMENT ASSISTANT Respiratory Rate 16 04/25/2015 1:02 PM MANAGEMENT ASSISTANT Oxygen Saturation 100% 04/25/2015 1:02 PM MANAGEMENT ASSISTANT Inhaled Oxygen Concentration - - Weight 82.1 kg (181 lb) 04/25/2015 1:02 PM MANAGEMENT ASSISTANT Height 167 cm (5' 5.75) 04/25/2015 1:02 PM MANAGEMENT ASSISTANT Body Mass Index 29.44 04/25/2015 1:02 PM MANAGEMENT ASSISTANT documented in this encounter Patient Instructions Patient [...] months for an exam and cleaning. ?? GEMENT ASSISTANT documented in this encounter Progress Notes Gina [...] Maxwell and colleagues,with an educational kenia from [employer].) 04/25/2015 01/31/2015 Q1: Little interest or pleasure [...] LDL, TRIG, CHOLHDLRATIO, NHDL in the last 23522 hours. Reviewed orders with patient. Reviewed health maintenance and updated orders accordingly - Yes Mammo Decision Support: Mammogram not appropriate for this patient based on age. Last Mammo:No results found. History of abnormal Pap smear: NO - age 21-29 PAP every 3 years recommended All Histories reviewed and updated in [facility]. 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 Patient Active [...] Preventive Guidelines Dietary Guidelines for Americans, 2010 [employer] Gina Palumbo PA-C [facility] GEMENT ASSISTANT documented in this encounter Nursing Notes Monica [...] phone number for results from this visit [phone] OK to leave message Marianne Tony CMA (AAMA) 04/25/2015 1:03 PM GEMENT ASSISTANT documented in this encounter Miscellaneous Notes Addendum Note - Gina Palumbo PA-C - 04/27/2015 8:25 AM MANAGEMENT ASSISTANT Addended by: GINA PALUMBO on: 04/27/2015 08:25 AM Modules accepted: Orders GEMENT ASSISTANT documented in this encounter Plan of Treatment Upcoming Encounters Date Type Specialty Care Team Description 01/07/2022 Virtual Visit Endocrinology Natalya Jean MD [address] [place] [address] (Wo rk) documented as of this encounter Procedures Procedure Name Priority Date/Time Associated Comments Diagnosis UA MACROSCOPIC WITH Routine 04/25/2015 12:44 Encounter for Res ults for this REFLEX TO MICROSCOPIC PM MANAGEMENT ASSISTANT routine adult proce ada are in AND CULTURE physical exam with the resul ts abnormal findings section. documented in this encounter Results (ABNORMAL) Iron and iron binding capacity (04/27/2015 11:50 AM MANAGEMENT ASSISTANT) [facility] Method Time Signature Iron 13 (L) 35 - 180 [place] ug/dL [facility] Iron Binding 619 (H) 240 - 430 [place] Cap ug/dL [facility] Iron Saturation 2 (L) 15 - 46 % [place] Index [facility] Specimen Anatomical Collection Method Collection Time Receive d Time (Source) Location / / Volume Laterality Blood specimen 04/27/2015 11:50 6 (specimen) AM MANAGEMENT ASSISTANT 11:51 AM MANAGEMENT ASSISTANT Gina Palumbo PA-C LAB - BLOOD ORDERABLES Performing Organization Address City/[facility]/ZIP Code Phon e Number [facility] [address] [place] [address] (ABNORMAL) Ferritin (04/27/2015 11:50 AM MANAGEMENT ASSISTANT) athologist Signature Ferritin 2 (L) 12 - 150 [facility] ng/mL [facility] Specimen Anatomical Collection Method Collection Time Receive d Time (Source) Location / / Volume Laterality Blood specimen 04/27/2015 11:50 6 (specimen) AM MANAGEMENT ASSISTANT 11:51 AM MANAGEMENT ASSISTANT Gina Palumbo PA-C LAB - BLOOD ORDERABLES Performing Organization Address City/[facility]/ZIP Code Phon e Number [facility] [address] [place] [address] (ABNORMAL) TSH with free T4 reflex (04/26/2015 8:26 AM MANAGEMENT ASSISTANT) P athologist Signature TSH 7.92 (H) 0.40 - [facility] 4.00 mU/L [facility] Specimen Anatomical Collection Method Collection Time Receive d Time (Source) Location / / Volume Laterality Blood specimen 04/26/2015 8:26 AM 016 8:27 (specimen) MANAGEMENT ASSISTANT AM MANAGEMENT ASSISTANT Gina Palumbo PA-C LAB - BLOOD ORDERABLES Performing Organization Address City/State/ZIP Code Phon e Number [facility] [address] [place] [address] (ABNORMAL) Comprehensive metabolic panel (04/26/2015 8:26 AM MANAGEMENT ASSISTANT) [facility] gist Method Time Signature Sodium 140 133 - 144 [place] mmol/L [facility] Potassium 4.1 3.4 - 5.3 [place] mmol/L [facility] Chloride 109 94 - 109 [place] mmol/L [facility] Carbon Dioxide 23 20 - 32 [place] mmol/L [facility] Anion Gap 8 3 - 14 [place] mmol/L [facility] Glucose 87 70 - 99 [place] mg/dL [facility] Urea Nitrogen 10 7 - 30 [place] mg/dL [facility] Creatinine 0.74 0.52 - [facility] 1.04 CLINICS mg/dL [facility] GFR Estimate >90 >60 [place] Non GFR Calc mL/min/1. CLINICS 7m2 [facility] GFR Estimate If >90 >60 [place] Black GFR Calc mL/min/1. CLIN ICS 7m2 [facility] Calcium 8.3 (L) 8.5 - [facility] 10.1 CL[facility]ICS mg/dL [facility] Bilirubin Total 0.5 0.2 - 1.3 [place] mg/dL [facility] Albumin 3.8 3.4 - 5.0 [place] g/dL [facility] Protein Total 7.4 6.8 - 8.8 [place] g/dL [facility] Alkaline 71 40 - 150 [place] Phosphatase U/L [facility] ALT 19 0 - 50 [place] U/L [facility] AST 14 0 - 45 [facility] U/L [facility] Specimen Anatomical Collection Method Collection Time Receive d Time (Source) Location / / Volume Laterality Blood specimen 04/26/2015 8:26 AM 016 8:27 (specimen) MANAGEMENT ASSISTANT AM MANAGEMENT ASSISTANT Gina Palumbo PA-C LAB - BLOOD ORDERABLES Performing Organization Address City/[facility] Phon e Number [facility] [address] [place] [address] (ABNORMAL) CBC with platelets (04/26/2015 8:26 AM MANAGEMENT ASSISTANT) athologist Signature WBC 4.7 4.0 - 11.0 [place] 10e9/L [facility] RBC Count 4.41 3.8 - 5.2 [place] 10e12/L [facility] Hemoglobin 8.4 (L) 11.7 - 15.7 [place] g/dL [facility] Comment: Results confirmed by repeat mónica t Hematocrit 29.1 (L) 35.0 - 47.0 % [facility] [place] MCV 66 (L) 78 - [address] [facility] [place] MCH 19.0 (L) 26.5 - 33.0 pg [facility] [place] MCHC 28.9 (L) 31.5 - 36.5 g/dL [place] [facility] Comment: Results confirmed by repeat mónica t RDW 16.7 (H) 10.0 - 15.0 % [facility] [place] Platelet Count 321 150 - 450 10e9/L [facility] Specimen Anatomical Collection Method Collection Time Receive d Time (Source) Location / / Volume Laterality Blood specimen 04/26/2015 8:26 AM 016 8:27 (specimen) MANAGEMENT ASSISTANT AM MANAGEMENT ASSISTANT Gina Palumbo PA-C LAB - BLOOD ORDERABLES Performing Organization Address City/[facility]/ZIP Code Phon e Number [facility] [address] [place], [place] [address] LIPID REFLEX TO DIRECT LDL PANEL (04/26/2015 8:26 AM MANAGEMENT ASSISTANT) athologist Signature Cholesterol 109 <200 mg/dL [facility] Triglycerides 70 <150 mg/dL [facility] S [facility] Comment: Fasting specimen HDL Cholesterol 54 >49 mg/dL [place] CLINI CS [facility] LDL Cholesterol Calculated 41 <100 mg/dL [facility] Comment: Desirable: <100 mg/dl Non HDL Cholesterol 55 <130 mg/dL [facility] Specimen Anatomical Collection Method Collection Time Receive d Time (Source) Location / / Volume Laterality Blood specimen 04/26/2015 8:26 AM 016 8:27 (specimen) MANAGEMENT ASSISTANT AM MANAGEMENT ASSISTANT Gina Palumbo PA-C LAB - BLOOD ORDERABLES Performing Organization Address City/State/ZIP Code Phon e Number [facility] [address] [place] [address] UA reflex to Microscopic and Culture (04/25/2015 12:44 PM MANAGEMENT ASSISTANT) [facility] gist Method Time Signature Color Urine Yellow [place] [facility] Appearance Urine Clear [place] [facility] Glucose Urine Negative NEG mg/dL [place] [facility] Bilirubin Urine Negative NEG [place] [facility] Ketones Urine Negative NEG mg/dL [place] [facility] Specific [place] 1.025 1.003 - [place] Urine 1.035 [facility] Blood Urine Negative NEG [place] [facility] pH Urine 5.5 5.0 - 7.0 [place] pH [facility] Protein Albumin Negative NEG mg/dL [place] Urine [facility] Urobilinogen 0.2 0.2 - 1.0 [place] Urine EU/dL [facility] Nitrite Urine Negative NEG [place] [facility] Leukocyte Negative NEG [place] Esterase Urine [facility] Source Midstream [place] Urine [facility] Specimen Anatomical Collection Method Collection Time Receive d Time (Source) Location / / Volume Laterality Urine specimen 04/25/2015 12:44 6 (specimen) PM MANAGEMENT ASSISTANT 12:45 PM MANAGEMENT ASSISTANT Gina Palumbo PA-C LAB - URINE ORDERABLES Performing Organization Address City/State/ZIP Code Phon e Number [facility] [address] [place], [place] [address] documented in this encounter [...] documented as of this encounter Care Teams Propagator Laborer Relationship Specialty Start Date End Date Gina Palumbo, PCP - General Physician Shoemaking Finisher 5 09/03/21 [place] [address] [place] [address] [address] Gina Palumbo, PCP - Assigned PCP 01/12/15 05/11/18 PA-C [id number] [address], [place] [id number] Gina Palumbo, Physician Shoemaking Finisher 01/31/15 PA-C [id number] [place] [address] Gina Palumbo, Assigned PCP 01/12/15 PA-C [id number] [place] [address] documented as of this encounter
--- OUTSIDE RECORDS SUMMARY | 2021-10-16 00:58 | XMS_ITS | Encounter Summary ---
:1985 Author Organization [place] Address [address] [place] [address]. [place] [address] Care Team Providers Name Role Phone Gina Bautista PA-C Primary Care Provider [phone] Gina Bautista PA-C Unavailable [phone] Gina Bautista PA-C Unavailable [phone] Gina Bautista PA-C Unavailable [phone] Reason for Visit Reason Comments Cough x 3-4 days Derm Problem x 1 day Encounter Details Date Type Department Care Team Description 01/31/2015 Office Visit [facility] Gina Bautista litis and abscess of leg (Primary Dx); Clinic Jigna Vance PA-C Upper respiratory tract infection, unspe cified upper respiratory infection [address] [address] [address] [place] [facility] [place] [phone] Social History Tobacco Use Types Packs/Day Years Used Date Never Smoker Smokeless Tobacco: Never Used Alcohol Use Standard Drinks/Week Comments Yes 0 (1 standard drink = 0.6 oz pure alcoho l) Sex Assigned at Date Recorded Not on file documented as of this encounter Last Filed Vital Signs Vital Sign Reading Time Taken Comments Blood Pressure 108/56 01/31/2015 3:14 PM JOB CAPTAIN Pulse 82 01/31/2015 3:14 PM JOB CAPTAIN Temperature 36.7 ??C (98.1 ??F) 01/31/2015 3:14 PM JOB CAPTAIN Respiratory Rate 18 01/31/2015 3:14 PM JOB CAPTAIN Oxygen Saturation 99% 01/31/2015 3:14 PM JOB CAPTAIN Inhaled Oxygen Concentration - - Weight 82.4 kg (181 lb 9.6 oz) 01/31/2015 3:14 PM JOB CAPTAIN Height 167.6 cm (5' 6) 01/31/2015 3:14 PM JOB CAPTAIN Body Mass Index 29.31 01/31/2015 3:14 PM JOB CAPTAIN documented in this encounter Progress Notes Gina [...] care. Gina Bautista PA-C [facility] [place] CAPTAIN documented in this encounter Nursing Notes Monica [...] phone number for results from this visit [phone] Marianne Tony CMA (AAMA) 01/31/2015 3:16 PM CAPTAIN documented in this encounter Plan of Treatment Upcoming Encounters Date Type Specialty Care Team Description 01/07/2022 Virtual Visit Endocrinology Natalya Jean MD [address] [place] [address] (Wo rk) documented as of this encounter Visit Diagnoses Diagnosis Cellulitis and abscess of leg - Primary Cellulitis and abscess of leg, except fo ot Upper respiratory tract infection, unspe cified upper respiratory infection documented in this encounter Additional Health Concerns Assessment Noted Time PHQ-9 Depression Total Score: 13 02/01/2015 7:29 AM CS T documented as of this encounter Care Teams Admissions Director Relationship Specialty Start Date End Date Gina Bautista PCP - General Physician Air Pumper 5 09/03/21 [place] [address] [place] [address] Gina Bautista, PCP - Assigned PCP 01/12/15 05/11/18 PA-C [id number] [place] [address] Gina Bautista, Physician Air Pumper 01/31/15 PA-C 86[address] [place] [address] Gina Bautista, Assigned PCP 01/12/15 PA-C [id number] [place] [address] documented as of this encounter
--- OUTSIDE RECORDS SUMMARY | 2021-10-16 00:58 | XMS_ITS | Encounter Summary ---
:1985 Author Organization [place] Address [address] [place] [address]. 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 Hypothyroidism due to acquired atrophy of thyroid T4 FREE Routine 04/26/2015 8:26 AM Encounter for Results for this MORPHOLOGIST routine adult procedure are in physical exam with the resul ts abnormal findings section. LIPID REFLEX TO DIRECT Routine 04/26/2015 8:26 AM Encounter fo r Results for this LDL PANEL MORPHOLOGIST routine adult procedure are in physical exam with the resul ts abnormal findings section. COMPREHENSIVE Routine 04/26/2015 8:26 AM Encounter for Results for this METABOLIC PANEL MORPHOLOGIST routine adult procedure a re in physical exam with the resul ts abnormal finding s section. Overweight CBC WITH PLATELETS Routine 04/26/2015 8:26 AM Encounter for Re sults for this MORPHOLOGIST routine adult procedure are in physical exam with the resul ts abnormal findings section. documented in this encounter Results T4 free (04/26/2015 8:26 AM MORPHOLOGIST) athologist Signature T4 Free 0.98 0.76 - 1.46 [facility] ng/dL [facility] Specimen Anatomical Collection Method Collection Time Receive d Time (Source) Location / / Volume Laterality 04/26/2015 8:26 AM 6 8:27 MORPHOLOGIST AM MORPHOLOGIST Gina Bautista PA-C LAB - BLOOD ORDERABLES Performing Organization Address City/State/ZIP Code Phon e Number [facility] [address] [place] [address] (ABNORMAL) CBC with platelets (04/26/2015 8:26 AM MORPHOLOGIST) athologist Signature WBC 4.7 4.0 - 11.0 [place] 10e9/L [facility] [place] RBC Count 4.41 3.8 - 5.2 [place] 10e12/L [facility] [place] Hemoglobin 8.4 (L) 11.7 - 15.7 [place] g/dL [facility] Comment: Results confirmed by repeat mónica t Hematocrit 29.1 (L) 35.0 - 47.0 % [facility] [place] MCV 66 (L) 78 - 100 fl [facility] [place] MCH 19.0 (L) 26.5 - 33.0 pg [facility] [place] MCHC 28.9 (L) 31.5 - 36.5 g/dL [facility] Comment: Results confirmed by repeat mónica t RDW 16.7 (H) 10.0 - 15.0 % [facility] Platelet Count 321 150 - 450 10e9/L [facility] Specimen Anatomical Collection Method Collection Time Receive d Time (Source) Location / / Volume Laterality Blood specimen 04/26/2015 8:26 AM 016 8:27 (specimen) MORPHOLOGIST AM MORPHOLOGIST Gina Bautista PA-C LAB - BLOOD ORDERABLES Performing Organization Address City/[facility]/ZIP Code Phon e Number [facility] [address] [place], [place] [address] LIPID REFLEX TO DIRECT LDL PANEL (04/26/2015 8:26 AM MORPHOLOGIST) P athologist Signature Cholesterol 109 <200 mg/dL [facility] Triglycerides 70 <150 mg/dL [facility] Comment: Fasting specimen HDL Cholesterol 54 >49 mg/dL [place] CLINI [facility] LDL Cholesterol Calculated 41 <100 mg/dL [facility] Comment: Desirable: <100 mg/dl Non HDL Cholesterol 55 <130 mg/dL [facility] Specimen Anatomical Collection Method Collection Time Receive d Time (Source) Location / / Volume Laterality Blood specimen 04/26/2015 8:26 AM 016 8:27 (specimen) MORPHOLOGIST AM MORPHOLOGIST Gina Bautista PA-C LAB - BLOOD ORDERABLES Performing Organization Address City/[facility]/ZIP Code Phon e Number [facility] [address] [place] [address] (ABNORMAL) TSH with free T4 reflex (04/26/2015 8:26 AM MORPHOLOGIST) P athologist Signature TSH 7.92 (H) 0.40 - [facility] 4.00 mU/L [facility] Specimen Anatomical Collection Method Collection Time Receive d Time (Source) Location / / Volume Laterality Blood specimen 04/26/2015 8:26 AM 016 8:27 (specimen) MORPHOLOGIST AM MORPHOLOGIST Gina Bautista PA-C LAB - BLOOD ORDERABLES Performing Organization Address City/State/ZIP Code Phon e Number [facility] [address] [place] [address] (ABNORMAL) Comprehensive metabolic panel (04/26/2015 8:26 AM MORPHOLOGIST) [facility] gist Method Time Signature Sodium 140 133 - 144 [place] mmol/L [facility] Potassium 4.1 3.4 - 5.3 [place] mmol/L [facility] Chloride 109 94 - 109 [place] mmol/L [facility] Carbon Dioxide 23 20 - 32 [place] mmol/L [facility] Anion Gap 8 3 - 14 [place] mmol/L [facility] Glucose 87 70 - 99 [place] mg/dL [facility] Urea Nitrogen 10 7 - 30 [place] mg/dL [facility] Creatinine 0.74 0.52 - [place] 1.04 CLINICS mg/dL [facility] GFR Estimate >90 >60 [place] Non GFR Calc mL/min/1. CLINICS 7[address]2 [facility] GFR Estimate If >90 >60 [place] Black GFR Calc mL/min/1. CLIN ICS 7m2 [facility] Calcium 8.3 (L) 8.5 - [facility] 10.1 CLINICS mg/dL [facility] Bilirubin Total 0.5 0.2 - 1.3 [place] mg/dL [facility] Albumin 3.8 3.4 - 5.0 [place] g/dL [facility] Protein Total 7.4 6.8 - 8.8 [place] g/dL [facility] Alkaline 71 40 - 150 [place] Phosphatase U/L [facility] ALT 19 0 - 50 [place] U/L [facility] AST 14 0 - 45 [facility] U/L [facility] Specimen Anatomical Collection Method Collection Time Receive d Time (Source) Location / / Volume Laterality Blood specimen 04/26/2015 8:26 AM 016 8:27 (specimen) MORPHOLOGIST AM MORPHOLOGIST Gina Bautista PA-C LAB - BLOOD ORDERABLES Performing Organization Address City/State/ZIP Code Phon e Number [facility] [address] [place] [address] documented in this encounter Visit Diagnoses Diagnosis Encounter for routine adult physical exa m with abnormal findings Overweight 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 documented in this encounter Additional Health Concerns Assessment Noted Time PHQ-9 Depression Total Score: 16 04/26/2015 8:54 AM CS T documented as of this encounter Care Teams Fancy Packer Relationship Specialty Start Date End Date Gina Bautista, PCP - General Physician Soil Technologist 5 09/03/21 PA-C [id number] [address] [place], [place] [address] Gina Bautista, PCP - Assigned PCP 01/12/15 05/11/18 PA-C 67158 [address] [place], [place] [address] Gina Bautista, Physician Soil Technologist 01/31/15 PA-C 46864 [address] [place], [place] [address] Gina Bautista, Assigned PCP 01/12/15 PA-C 45772 [place] [address] documented as of this encounter
== END 2021-10-09 07:59 | disposition home or self-care (01) ==
LOC: US 07:58
PROVIDERS: PCP Internal Medicine; Visit Provider Obstetrics & Gynecology
DX: O09.212 Supervision of pregnancy with history of pre-term labor, second trimester (principal); Z3A.15 15 weeks gestation of pregnancy
CPT/HCPCS: 76817

== ENCOUNTER 2021-10-14 09:20 | Outpatient (CLI) | payer BC, SELFPAY ==
[2021-10-14 11:56] LABS: Free T4 Free Thyroxine* 1.23 ng/dL (0.70-1.85)
[2021-10-14 12:10] LABS: Thyroid Stimulating Hormone* 0.105 uIU/mL (0.270-4.20)
== END 2021-10-14 09:21 | disposition home or self-care (01) ==
PROVIDERS: PCP Internal Medicine; Visit Provider Obstetrics & Gynecology
DX: O09.219 Supervision of pregnancy with history of pre-term labor, unspecified trimester (principal); E03.9 Hypothyroidism, unspecified; Z3A.00 Weeks of gestation of pregnancy not specified
CPT/HCPCS: 76816; 76817; 84439; 84443

== ENCOUNTER 2021-10-29 13:47 | Outpatient (CLI) | payer BC, SELFPAY ==
--- OUTSIDE RECORDS SUMMARY | 2021-10-29 13:49 | XMS_ITS | Encounter Summary ---
:1985 Author Organization [place] Address [address] [place] [address]. [place] [address] Care Team Providers Name Role Phone Gina Bautista PA-C Primary Care Provider [phone] Gina Bautista PA-C Unavailable [phone] Gina Bautista PA-C Unavailable [phone] Gina Bautista PA-C Unavailable [phone] Reason for Visit Reason Onset Date Comments Outreach 05/27/2017 Encounter Details Date Type Department Care Team Description 05/27/2017 Telephone [facility] Lyle Bautista, Outreach [place] [address] [address] [place] [phone] [place] [id number] (Wo rk) Social History Tobacco Use Types [...] Panchito Gandhi sent at 04/15/2017 4:53 PM MOUNTAIN BIKE GUIDE ----- Call pt to schedule lab only in next 2 weeks. Labs pended. Panchito Gandhi CMA ([facility]) documented in this encounter Plan of Treatment Upcoming Encounters Date Type Specialty Care Team Description 01/07/2022 Virtual Visit Endocrinology Natalya Jean MD [address] [place] [address] (Wo rk) documented as of this encounter Visit Diagnoses Not on filedocumented in this encounter Additional Health Concerns Assessment Noted Time PHQ-9 Depression Total Score: 10 05/09/2017 8:01 AM CS T documented as of this encounter Care Teams Pest Control Worker Helper Relationship Specialty Start Date End Date Gina Bautista, PCP - General Physician Regulatory Affairs Intern 5 09/03/21 PA-C [id number] [place] [address] Gina Bautista, PCP - Assigned PCP 01/12/15 05/11/18 PA-C 24940 [place] [address] Gina Bautista, Physician Regulatory Affairs Intern 01/31/15 PA-C 87340 [place] [id number] Gina Bautista, Assigned PCP 01/12/15 PA-C 14540 [place] [address] documented as of this encounter
--- OUTSIDE RECORDS SUMMARY | 2021-10-29 13:49 | XMS_ITS | Encounter Summary ---
:1985 Author Organization [facility] Address [address] [place] [address]. [place] [address] Care Team Providers Name Role Phone Gina Bautista PA-C Primary Care Provider [phone] Oestrfrances, Gina Vance PA-C Unavailable [phone] OestrGina daniels PA-C Unavailable [phone] Oestrfrances, Gina Vance PA-C Unavailable [phone] Encounter Details Date Type Department Care Team Description 06/11/2017 Hospital Pathology [facility] Results MD Brynn BISQUE WARE DIPPER SPECIALIS TS [address] [id number] (Wo rk) Social History Tobacco Use Types [...] Natalya Jean MD [address] [place], [place] [address] (Wo rk) documented as of this encounter Procedures Procedure Name Priority Date/Time Associated Diagnosis Comme [facility] SURGICAL PATHOLOGY Routine 06/11/2017 11:30 AM Re sults for this EXAM CDT procedure are i n the results section. documented in this encounter Results Surgical pathology exam (06/11/2017 11:30 AM CDT) Component Value Ref Test Analysis Performed At [facility] Range Method Time Signature Copath Report Patient Name: CARLEY JO MR#: [id number] Specimen #: [id number] Collected: 06/11/2017 Received: 06/11/2017 Reported: 06/12/2017 14:08 [...] par ts or translucent vesicles are identified. Blankbook Forwarder sections are submitted in 2 blocks. ??The rem ainder of the specimen is handled per [facility] POC protocol. (Dictated by: ASHLEY Martinez 06/11/2017 03:17 PM) MICROSCOPIC: Microscopic examination is performed. CPT Codes: A: 16701-LR4, SO TESTING LAB LOCATION: [facility] [address] [place] [address] ??[phone] COLLECTION SITE: Client: [facility] Location: R548 (F) Specimen [...] documented as of this encounter Care Teams Canal Tender Relationship Specialty Start Date End Date Gina Bautista, PCP - General Physician Film Technician 5 09/03/21 PA-C 83[address] [place] [address] Gina Bautista, PCP - Assigned PCP 01/12/15 05/11/18 PA-C 80732 [place], [place] [id number] Gina Bautista, Physician Film Technician 01/31/15 PA-C 34739 [place] [address] Gina Bautista, Assigned PCP 01/12/15 PA-C [address]2497 [place] [address] documented as of this encounter
--- OUTSIDE RECORDS SUMMARY | 2021-10-29 13:49 | XMS_ITS | Encounter Summary ---
:1985 Author Organization [place] Address [address] [place] [address]. 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 TSH WITH FREE T4 Routine 04/10/2017 2:35 PM Hypothyroidism due to Results for this REFLEX OUTER DIAMETER GRINDER TOOL acquired atrophy of procedur e are in thyroid the results section. T4 FREE Routine 04/10/2017 2:35 PM Vitamin D deficiency R esults for this OUTER DIAMETER GRINDER TOOL procedure are i n the results section. documented in this encounter Results T4 free (04/10/2017 2:35 PM OUTER DIAMETER GRINDER TOOL) athologist Signature T4 Free 0.94 0.76 - 1.46 04/12/2017 [facility] ng/dL 1:41 PM [facility] Specimen Anatomical Collection Method Collection Time Receive d Time (Source) Location / / Volume Laterality 04/10/2017 2:35 PM 8 2:36 OUTER DIAMETER GRINDER TOOL PM OUTER DIAMETER GRINDER TOOL Gina Bautista PA-C LAB - BLOOD ORDERABLES Performing Organization Address City/[facility]/ZIP Code Phon e Number [facility] [address] [place] [address] (ABNORMAL) TSH with free T4 reflex FUTURE 2mo (04/10/2017 2:35 PM OUTER DIAMETER GRINDER TOOL) athologist [facility] TSH 10.56 (H) 0.40 - 04/12/2017 [facility] 4.00 mU/L 1:28 PM [facility] Specimen Anatomical Collection Method Collection Time Receive d Time (Source) Location / / Volume Laterality Blood specimen 04/10/2017 2:35 PM 018 2:36 (specimen) OUTER DIAMETER GRINDER TOOL PM OUTER DIAMETER GRINDER TOOL Gina Bautista PA-C LAB - BLOOD ORDERABLES Performing Organization Address City/[facility]/ZIP Code Phon e Number [facility] [address] [place] [address] (ABNORMAL) Vitamin D Deficiency (04/10/2017 2:35 PM OUTER DIAMETER GRINDER TOOL) athologist Signature Vitamin D 13 (L) 20 - 75 04/11/2017 [facility] Deficiency ug/L 11:46 AM OUTER DIAMETER GRINDER TOOL [facility] Comment: Season, race, dietary intake, and treatm ent affect the concentration of 55-ghqnozw-Dvoucom D. Values may decreas e during winter [...] specimen 04/10/2017 2:35 PM 018 2:36 (specimen) OUTER DIAMETER GRINDER TOOL PM OUTER DIAMETER GRINDER TOOL Gina RAMIREZ-C LAB - BLOOD ORDERABLES Performing Organization Address City/State/ZIP Code Phon e Number [address] documented in this encounter Visit Diagnoses Diagnosis Vitamin D deficiency Unspecified vitamin D deficiency 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 documented in this encounter Additional Health Concerns Assessment Noted Time PHQ-9 Depression Total Score: 9 02/19/2017 2:07 PM OUTER DIAMETER GRINDER TOOL documented as of this encounter Care Teams Lieutenant/Deputy Relationship Specialty Start Date End Date Gina Bautista, PCP - General Physician Broadcast Designer 5 09/03/21 PA-C [address] [place] [address] Gian Bautista, PCP - Assigned PCP 01/12/15 05/11/18 PA-C 379[address] [place] [address] Gina Bautista, Physician Broadcast Designer 01/31/15 PA-C 24279 [place] [address] Gina Bautista, Assigned PCP 01/12/15 PA-C 09847 [place] [address] documented as of this encounter
--- OUTSIDE RECORDS SUMMARY | 2021-10-29 13:49 | XMS_ITS | Encounter Summary ---
:1985 Author Organization [facility] Address [address] [place] [address]. [place] [address] Care Team Providers Name Role Phone Gina Bautista PA-C Primary Care Provider [phone] Gina Bautista PA-C Unavailable [phone] Gina Bautista PA-C Unavailable [phone] Gina Bautista PA-C Unavailable [phone] Encounter Details Date Type Department Care Team Description 05/08/2017 Office Visit [facility] Lisa Lopez LP Anxiety (Primary Dx) Services [address] [phone] Social History Tobacco Use Types Packs/Day Years [...] her ex spouse. At work, has received [employer] and a perk. But has lots of [...] plan. Lisa Lopez LP February 19, 2017 ET LAYER HELPER documented in this encounter Plan of Treatment Upcoming Encounters Date Type Specialty Care Team Description 01/07/2022 Virtual Visit Endocrinology Natalya Jean MD [address] [place] [address] (Wo rk) documented as of this encounter Visit Diagnoses Diagnosis Anxiety - Primary Anxiety state, unspecified documented in this encounter Additional Health Concerns Assessment Noted Time PHQ-9 Depression Total Score: 10 05/09/2017 8:01 AM CS T documented as of this encounter Care Teams Scrap Handler Relationship Specialty Start Date End Date Gina Bautista, PCP - General Physician Contact Center Manager 5 09/03/21 PA-C [address] [place] [address] Gina Bautista, PCP - Assigned PCP 01/12/15 05/11/18 PA-C [address]67 [place] [address] Gina Bautista, Physician Contact Center Manager 01/31/15 PA-C 07068 [place] [address] Gina Bautista, Assigned PCP 01/12/15 PA-C 64889 [place] [address] documented as of this encounter
--- OUTSIDE RECORDS SUMMARY | 2021-10-29 13:49 | XMS_ITS | Encounter Summary ---
:1985 Author Organization [place] Address [address] [place] [address]. [place] [address] Care Team Providers Name Role Phone Gina Bautista PA-C Primary Care Provider [phone] Michele, Gina Vance PA-C Unavailable [phone] Gina Bautista PA-C Unavailable [phone] Michele, Gina Vance PA-C Unavailable [phone] Encounter Details Date Type Department Care Team Description 11/12/2017 [facility] Lisa Lopez LP Documentation Services [address] [phone] Social History Tobacco Use Types Packs/Day Years [...] [address] [place] [address] (Wo rk) documented as of this encounter Visit Diagnoses Not on filedocumented in this encounter Additional Health Concerns Assessment Noted Time PHQ-9 Depression Total Score: 10 05/09/2017 8:01 AM CS T documented as of this encounter Care Teams Crimp Setter Relationship Specialty Start Date End Date Gina Bautista, PCP - General Physician Skid Wrapper 5 09/03/21 PA-C [address] [place] [address] Gina Bautista, PCP - Assigned PCP 01/12/15 05/11/18 PA-C [address] [place] [address] Gina Bautista, Physician Skid Wrapper 01/31/15 PA-C 17049 [place] [address] Gina Bautista, Assigned PCP 01/12/15 PA-C 19389 [place] [address] documented as of this encounter
--- OUTSIDE RECORDS SUMMARY | 2021-10-29 13:49 | XMS_ITS | Encounter Summary ---
:1985 Author Organization [facility] Address [address] [place] [address] Care Team Providers Name Role Phone Gina Bautista PA-C Primary Care Provider [phone] Gina Bautista PA-C Unavailable Encounter Details Date Type Department Care Team Description 08/06/2020 Records - [facility] CONVERSION Provider, Histor ical Social [...] Endocrinology Natalya Jean MD [address] [facility] [address] [place], [place] [address] (Wo rk) documented as of this encounter [...] documented as of this encounter Care Teams Head Loader Relationship Specialty Start Date End Date Gina Bautista PA-C PCP - General Physician Orthopedic Rn 01/31/15 09/03/21 [address] [address] [place] [id number] Gina Bautista PA-C Physician Orthopedic Rn 01/31/15 [address] [place] [address] documented as of this encounter
--- OUTSIDE RECORDS SUMMARY | 2021-10-29 13:49 | XMS_ITS | Clinical Summary ---
:1985 Author Organization [place] Address [address] [place] [address] Care Team Providers Name Role Phone Gina Bautista PA-C Unavailable [phone] Vidya Espinal APRN CNM Unavailable [phone] [facility] Unavailable Marissa Jean MD Unavailable [...] symptoms greater than 10 days fluticasone (FLONASE) [place] 1-2 sprays 1 Bottle 11 02/22/2017 Active 50 MCG/ACT into both nostrils sprayIndications: daily Acute sinusitis with symptoms greater than 10 days vitamin D Take 1 capsule 12 capsule 0 04/14/2017 Act [place] (ERGOCALCIFEROL) (50,000 Units) [place] [address] UNIT mouth once a week capsuleIndications: Lab [...] Medical Correspondence Scan, ENDOC RINOLOGY REFERRAL Non-Provider [facility] 2021 Transcribe Orders Provider, Hypothyroi dism Generic External (Primary Dx ) Data 08/08/2021 Medical Correspondence Scan, ENDOC RINOLOGY ORDER Non-Provider [facility] from Last 3 Months Immunizations [...] Comments Blood Pressure 108/62 02/22/2017 11:59 AM SEAL EXTRUSION OPERATOR Pulse 61 02/22/2017 11:59 AM SEAL EXTRUSION OPERATOR Temperature 36.7 ??C (98.1 ??F) 02/22/2017 11:59 AM SEAL EXTRUSION OPERATOR Respiratory Rate 15 12/19/2016 2:53 PM CDT Oxygen Saturation 100% 02/22/2017 11:59 AM SEAL EXTRUSION OPERATOR Inhaled Oxygen Concentration - - Weight 79.3 kg (174 lb 12.8 oz) 01/27/2017 1:05 PM SEAL EXTRUSION OPERATOR Height 167.6 cm (5' 6) 12/19/2016 2:53 PM CDT Body Mass Index 28.21 12/19/2016 2:53 PM CDT Plan of Treatment Upcoming Encounters Date Type Specialty Care Team Description 01/07/2022 Virtual Visit Endocrinology Natalya Jean MD [address] [place] [address] (Wo rk) Health Maintenance Due Date Last [...] (TSH) (External Result) (08/07/2021 10:30 AM CDT) [facility] gist Method Time Signature TSH (External) 24.700 (H) 0.270 - ADA 4.200 [facility] uIU/mL Specimen (Source) Anatomical Collection Method Collection Time Re ceived Time Location / / Volume Laterality Blood 08/07/2021 10:30 AM CDT [facility] - 08/07/2021 10:30 A M CDT [facility] LAB RESULT Provider Outside LAB - HIM EXTERNAL RESULT Performing Organization Address City/[facility]/ZIP [facility] Phon e Number [address] [address] [phone] ABSTRACT HIV (08/07/2021 10:30 AM CDT) athologist Signature HIV 1&2 EXT Non-Reacti Non-Reacti [facility] Comment: Negative Specimen (Source) Anatomical Collection Method Collection Time Re ceived Time Location / / Volume Laterality Blood 08/07/2021 10:30 AM CDT [facility] - 08/07/2021 10:30 A M CDT [facility] LAB RESULT Provider Outside LAB - IMMUNOLOGY ORDERABLES Performing Organization Address City/[facility]/ZIP Code Phon e Number [address] [address] Hepatitis C (HIM External Result) (08/07/2021 10:30 AM CDT) Analysis Performed At Patho logist Time Signature Hep C HIM See Scanned [facility] Comment: Negative Specimen (Source) Anatomical Collection Method Collection Time Re ceived Time Location / / Volume Laterality 08/07/2021 10:30 AM CDT [facility] - 08/07/2021 10:30 A M CDT [facility] LAB RESULT Provider Outside LAB - HIM EXTERNAL RESULT Performing Organization Address [facility]/ZIP Code Phon e Number [address] [address] Hemoglobin A1c (External Result) (08/07/2021 9:30 AM CDT) P athologist Signature Hemoglobin A1C 5.9 <=6.9 % ADA (External) [facility] Specimen (Source) Anatomical Collection Method Collection Time Re ceived Time Location / / Volume Laterality Blood 08/07/2021 9:30 AM CDT [facility] - 08/07/2021 9:30 AM CDT [facility] LAB RESULT Provider Outside LAB - HIM EXTERNAL RESULT Performing Organization Address [facility] Phon e Number [address] [address] Gonorrhea (External Result) (08/07/2021 9:29 AM CDT) [facility] gist Method Time Signature Specimen Vaginal [facility] N Gonorrhea Not Detected Negative [facility] Specimen (Source) Anatomical Collection Method Collection Time Re ceived Time Location / / Volume Laterality 08/07/2021 9:29 AM CDT [facility] - 08/07/2021 9:29 AM CDT [facility] LAB RESULT Provider Outside LAB - HIM EXTERNAL RESULT Performing Organization Address City/[facility]/ZIP [facility] Phon e Number [address] [address] Chlamydia Trachomatis PCR (External Result) (08/07/2021 9:29 AM CDT) Nosopharmolo gist Method Time Signature Specimen Vaginal [facility] Chlamydia Not Detected Negative ADA Trachomatis [facility] Specimen (Source) Anatomical Collection Method Collection Time Re ceived Time Location / / Volume Laterality 08/07/2021 9:29 AM CDT [facility] - 08/07/2021 9:29 AM CDT [facility] LAB RESULT Provider Outside LAB - HIM EXTERNAL RESULT Performing Organization Address City/[facility]/ZIP [facility] Phon e Number [facility] [address] [place] [address] [phone] LAB RESULT - HIM SCAN (08/07/2021 12:00 [...] (08/07/2021) P athologist Signature PHQ9 SCORE 3 Tee Oconnor - 08/07/2021 [facility]INICS PROGRESS NOT E Provider Outside OTHER from Last 3 Months Insurance Payer Benefit Plan Subscriber ID Effective Phone Address Typ e / Group Dates MEDICA MEDICA CHOICE [id number] 2016-Pres [phone] [place] [address] BCBS BCBS [facility] [id number] 2021-Pres [phone] [address] Indemnity [address] ent [phone] [place] [address] [facility] [id number] 2016-Pres [address] PPO BEHAVIORAL ent [phone] [place] [address] Care Teams Retail Merchandising Specialist Relationship Specialty Start Date End Date Violette Bolden CNM PCP - General 09/04/21 [facility] [address] [place] [address] Gina Bautista, Physician As400 Programmer 01/31/15 [place] [address] [place] [address] Vidya Espinal APRN CNM Deodorizer Operator 08/21/21 [facility] [address] [place] [address] [address] [place] [address] Clinic, [facility] 08/21/[address] [address] Marissa Jean MD Hospitalist Endocrinology, 09/04/21 [address] Diabetes, and [address] Metabolism [place], [place] [address]
--- OUTSIDE RECORDS SUMMARY | 2021-10-29 13:49 | XMS_ITS | Encounter Summary ---
:1985 Author Organization [place] Address [address] [place] [address]. [place] [address] Care Team Providers Name Role Phone Gina Bautista PA-C Primary Care Provider [phone] Gina Bautista PA-C Unavailable [phone] Vidya Espinal APRN [facility] Unavailable [phone] Clinic, [facility] Unavailable Encounter Details Date Type Department Care Team Description 2021 Medical Correspondence [facility] Scan, ENDOCRINOLOGY Health Info Mgmt Non-Provider REFERRAL [address] [address] Social History Tobacco Use Types [...] [address] [place] [address] (Wo rk) documented as of this encounter Visit Diagnoses Not on filedocumented in this encounter Additional Health Concerns Assessment Noted Time PHQ-9 Depression Total Score: 10 05/09/2017 8:01 AM CS T documented as of this encounter Care Teams Physical Meteorologist Relationship Specialty Start Date End Date Gina Bautista, PCP - General Physician Dining Car Waiter/Waitress 5 09/03/21 [place] [address] [place] [id number] Gina Bautista, Physician Dining Car Waiter/Waitress 01/31/15 [place] [address] [place] [place] [id number] Vidya Espinal APRN CNM Lawyer Criminal 08/21/21 [facility] [address] [id number] [facility], [facility] 08/21/[address] [address] documented as of this encounter
--- OUTSIDE RECORDS SUMMARY | 2021-10-29 13:49 | XMS_ITS | Encounter Summary ---
:1985 Author Organization [place] Address [address] [place] [address]. [place] [address] Care Team Providers Name Role Phone Gina Bautista PA-C Primary Care Provider [phone] Gina Bautista PA-C Unavailable [phone] Gina Bautista PA-C Unavailable [phone] Gina Bautista PA-C Unavailable [phone] Encounter Details Date Type Department Care Team Description 04/24/2017 Office Visit [facility] Lisa Lopez LP Anxiety (Primary Dx) Services [address] [phone] Social History Tobacco Use Types Packs/Day Years [...] plan. Lisa Lopez LP February 19, 2017 MANAGER documented in this encounter Plan of Treatment Upcoming Encounters Date Type Specialty Care Team Description 01/07/2022 Virtual Visit Endocrinology Natalya Jean MD [address] [place] [address] (Wo rk) documented as of this encounter Visit Diagnoses Diagnosis Anxiety - Primary Anxiety state, unspecified documented in this encounter Additional Health Concerns Assessment Noted Time PHQ-9 Depression Total Score: 10 04/25/2017 8:01 AM CS T documented as of this encounter Care Teams Specialty Department Supervisor Relationship Specialty Start Date End Date Gina Bautista, PCP - General Physician Hearing Examiner 5 09/03/21 [place] [address] [place] [place] [id number] Gina Bautista, PCP - Assigned PCP 01/12/15 05/11/18 PA-C [address] [place] [address] Gina Bautista, Physician Hearing Examiner 01/31/15 PA-C 580[address] [place] [address] Gina Bautista, Assigned PCP 01/12/15 PA-C 23094 [place] [address] documented as of this encounter
--- OUTSIDE RECORDS SUMMARY | 2021-10-29 13:49 | XMS_ITS | Encounter Summary ---
:1985 Author Organization [place] Address [address] [place] [address] Care Team Providers Name Role Phone Gina Bautista PA-C Primary Care Provider [phone] Gina Bautista PA-C Unavailable [phone] Vidya Espinal APRN [facility] Unavailable [phone] [facility], [facility] Unavailable Reason for Referral Consultation (Urgent: 3-5 Days) - Pending Review Specialty Diagnoses / Procedures Referred By Contact Refer red To Contact Endocrinology, Diagnoses Hypothyroidism System, Provider Not Diabetes, and In Metabolism Referral ID Status Reason Start Date Expiration Date Visits V isits Requested Authorized [id number] Pending 2021 2022 1 1 Review Scheduling [...] Endocrinology Natalya Jean MD [address] [facility] [address] [place] [address] (Wo rk) Scheduled Referrals Name Type Priority Associated Diagnoses Order S chedule Adult Endocrinology Referral Urgent: 3-5 Days Hypothyroidism Ex pected: Bridal Stylist Sales Consultant Referral 2 (Approximate), Expires: 2022 documented as of this encounter Visit Diagnoses Diagnosis Hypothyroidism - Primary Unspecified hypothyroidism documented in this encounter Additional Health Concerns Assessment Noted Time PHQ-9 Depression Total Score: 10 05/09/2017 8:01 AM CS T documented as of this encounter Care Teams Coat Room Attendant Relationship Specialty Start Date End Date Gina Bautista, PCP - General Physician Weight Control Engineer 5 09/03/21 [place] [address] [place] [address] Gina Bautista, Physician Weight Control Engineer 01/31/15 [place] [address] [place] [address] Vidya Espinal APRN CNM Revenue Cycle Consultant 08/21/[address] [place] [address] [facility], [facility] 08/21/[address] [address] documented as of this encounter
--- OUTSIDE RECORDS SUMMARY | 2021-10-29 13:49 | XMS_ITS | Encounter Summary ---
:1985 Author Organization [place] Address [address] [place] [address]. [place] [address] Care Team Providers Name Role Phone Gina Bautista PA-C Primary Care Provider [phone] Gina Bautista PA-C Unavailable [phone] Vidya Espinal APRN [facility] Unavailable [phone] Clinic, [facility] Unavailable Encounter Details Date Type Department Care Team Description 08/08/2021 Medical Correspondence [facility] Scan, ENDOCRINOLOGY ORDER Health Info [facility] Non-Provider [facility] [address] [place] [phone] Social History Tobacco Use Types Packs/Day [...] [address] [place], [place] [address] (Wo rk) documented as of this encounter Visit Diagnoses Not on filedocumented in this encounter Additional Health Concerns Assessment Noted Time PHQ-9 Depression Total Score: 10 05/09/2017 8:01 AM CS T documented as of this encounter Care Teams Back Tender Cloth Printing Relationship Specialty Start Date End Date Gina Bautista, PCP - General Physician Waiter And Cashier 5 09/03/21 [place] [address] [place] [id number] Gina Bautista, Physician Waiter And Cashier 01/31/15 [place] [address] [address] [id number] Vidya Espinal APRN CNM Inspector Set Up And Lay Out 08/21/21 [place] [facility] [address] [phone] [facility], [facility] 08/21/[address] [address] documented as of this encounter
--- OUTSIDE RECORDS SUMMARY | 2021-10-29 13:49 | XMS_ITS | Encounter Summary ---
:1985 Author Organization [place] Address [address] [place] [address] Care Team Providers Name Role Phone Gina Bautista PA-C Unavailable [phone] Vidya Espinal APRN, CNM Unavailable [phone] [facility] Unavailable Marissa Jean MD Unavailable Violette BoldenM Primary Care Provider Reason for Visit Reason Onset Date Comments Appointment 09/04/2021 Encounter Details Date Type Department Care Team Description 09/04/2021 Telephone [facility] Natalya Jean, Lizzeth Israel MD [address] [facility] [address] [place] [address] [place] [address] (Wo rk) Social History Tobacco Use Types [...] CDT [facility], relayed message to egg factory worker she will relay this message to the team/person who called. Telephone Encounter - Marissa Jean MD - 09/04/2021 10:29 AM CDT NEW PT TO ME. I am very sorry- but at this time schedule is booked out and I do not have any sooner appointments. Patient my wish to request endo consult at another locations or [facility] Endocrinology. Let me know if you have [...] [address] [place] [address] (Wo rk) documented as of this encounter Visit Diagnoses Not on filedocumented in this encounter Additional Health Concerns Assessment Noted Time PHQ-9 Depression Total Score: 10 05/09/2017 8:01 AM CS T documented as of this encounter Care Teams Bar Gauger And Lubricator Tender Relationship Specialty Start Date End Date Violette Bolden CNM PCP - General 09/04/21 [facility] [address] [place] [address] Gina Bautista, Physician Director Of Spa And Guest Experience 01/31/15 [place] [address] [place] [address] Vidya Espinal APRN CNM Silverware Buffer 08/21/[address] [place] [id number] [facility] 08[facility]21 [facility] [address] [place] [address] Marissa Jean MD Hospitalist Endocrinology, 09/04/21 [address] Diabetes, and [address] Metabolism [place], [place] [address] documented as of this encounter
--- OUTSIDE RECORDS SUMMARY | 2021-10-29 13:49 | XMS_ITS | Encounter Summary ---
:1985 Author Organization [place] Address [address] [place] [address]. [place] [address] Care Team Providers Name Role Phone Gina Bautista PA-C Primary Care Provider [phone] Gina Bautista PA-C Unavailable [phone] Gina Bautista PA-C Unavailable [phone] Gina Bautista PA-C Unavailable [phone] Reason for Visit Reason Onset Date Comments Refill Request 04/14/2017 Encounter Details Date Type Department Care Team Description 04/14/2017 Telephone [facility] Lyle Bautista Refill Request Lucia Vance PA-C [address] [address] [place] [address] [place] [address] [phone] (Wo rk) Social History Tobacco Use Types [...] in 6-8 weeks. Panchito Gandhi CMA (AAMA) LATION INSTALLER Telephone Encounter - Gina Bautista PA-C - 04/14/2017 12:48 PM INSULATION INSTALLER Lab orders futured and rx sent to pharmacy. Please notify patient should schedule lab only visit in 6-8 weeks, will check TSH and Vit D. 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 Vitamin D deficiency Unspecified vitamin D deficiency documented in this encounter Additional Health Concerns Assessment Noted Time PHQ-9 Depression Total Score: 9 02/19/2017 2:07 PM INSULATION INSTALLER documented as of this encounter Care Teams Estate Agent Relationship Specialty Start Date End Date Gina Bautista, PCP - General Physician Signals Intelligence Superintendent 5 09/03/21 [facility] [address] [place] [address] Gina Bautista, PCP - Assigned PCP 01/12/15 05/11/18 [facility] [address] [place] [address] Gina Bautista, Physician Signals Intelligence Superintendent 01/31/15 [facility] [address] [place] [address] Gina Bautista, Assigned PCP 01/12/15 [facility] [address] [place] [address] documented as of this encounter
--- OUTSIDE RECORDS SUMMARY | 2021-10-29 13:49 | XMS_ITS | Encounter Summary ---
:1985 Author Organization [place] Address [address] [place] [address]. [place] [address] Care Team Providers Name Role Phone Gina Bautista PA-C Primary Care Provider [phone] Gina Bautista PA-C Unavailable [phone] Gina Bautista PA-C Unavailable [phone] Gina Bautista PA-C Unavailable [phone] Encounter Details Date Type Department Care Team Description 05/22/2017 Office Visit [facility] Anxiety (Primary Dx) Services [address] [id number] Social History Tobacco Use Types Packs/Day Years [...] [address] [place] [address] (Wo rk) documented as of this encounter Visit Diagnoses Diagnosis Anxiety - Primary Anxiety state, unspecified documented in this encounter Additional Health Concerns Assessment Noted Time PHQ-9 Depression Total Score: 10 05/09/2017 8:01 AM CS T documented as of this encounter Care Teams Radio/Tv Technician Relationship Specialty Start Date End Date Gina Bautista, PCP - General Physician Surgical Services Assistant 5 09/03/21 [place] [address] [place] [address] Gina Bautista, PCP - Assigned PCP 01/12/15 05/11/18 [facility] [address] [place] [place], [place] [address] Gina Bautista, Physician Surgical Services Assistant 01/31/15 [facility] [address] [place] [address] Gina Bautista, Assigned PCP 01/12/15 [facility] [address] [place] [address] documented as of this encounter
--- OUTSIDE RECORDS SUMMARY | 2021-10-29 13:50 | XMS_ITS | Encounter Summary ---
:1985 Author Organization [place] Address [address] [place] [address]. [place] [address] Care Team Providers Name Role Phone Gina Bautista PA-C Primary Care Provider [phone] Gina Bautista PA-C Unavailable [phone] Gina Bautista PA-C Unavailable [phone] Gina Bautista PA-C Unavailable [phone] Reason for Visit Reason Comments Cough x 3-4 days Derm Problem x 1 day Encounter Details Date Type Department Care Team Description 01/31/2015 Office Visit [facility] Gina Bautista litis and abscess of leg (Primary Dx); Clinic Jigna Vance PA-C Upper respiratory tract infection, unspe cified upper respiratory infection [address] [address] [place] [facility] [place] [phone] Social History Tobacco Use Types Packs/Day Years Used Date Never Smoker Smokeless Tobacco: Never Used Alcohol Use Standard Drinks/Week Comments Yes 0 (1 standard drink = 0.6 oz pure alcoho l) Sex Assigned at Date Recorded Not on file documented as of this encounter Last Filed Vital Signs Vital Sign Reading Time Taken Comments Blood Pressure 108/56 01/31/2015 3:14 PM MATCH UP WORKER Pulse 82 01/31/2015 3:14 PM MATCH UP WORKER Temperature 36.7 ??C (98.1 ??F) 01/31/2015 3:14 PM MATCH UP WORKER Respiratory Rate 18 01/31/2015 3:14 PM MATCH UP WORKER Oxygen Saturation 99% 01/31/2015 3:14 PM MATCH UP WORKER Inhaled Oxygen Concentration - - Weight 82.4 kg (181 lb 9.6 oz) 01/31/2015 3:14 PM MATCH UP WORKER Height 167.6 cm (5' 6) 01/31/2015 3:14 PM MATCH UP WORKER Body Mass Index 29.31 01/31/2015 3:14 PM MATCH UP WORKER documented in this encounter Progress Notes Gina [...] care. Gina Bautista PA-C [facility] H UP WORKER documented in this encounter Nursing Notes Monica [...] phone number for results from this visit [phone] Marianne Tony CMA (AAMA) 01/31/2015 3:16 PM H UP WORKER documented in this encounter Plan of Treatment Upcoming Encounters Date Type Specialty Care Team Description 01/07/2022 Virtual Visit Endocrinology Natalya Jean MD [address] [place] [address] (Wo rk) documented as of this encounter Visit Diagnoses Diagnosis Cellulitis and abscess of leg - Primary Cellulitis and abscess of leg, except fo ot Upper respiratory tract infection, unspe cified upper respiratory infection documented in this encounter Additional Health Concerns Assessment Noted Time PHQ-9 Depression Total Score: 13 02/01/2015 7:29 AM CS T documented as of this encounter Care Teams Electrical Prospecting Operator Relationship Specialty Start Date End Date Gina Bautista PCP - General Physician Commercial Instructor Supervisor 5 09/03/21 [facility] [address] [place] [address] Gina Bautista, PCP - Assigned PCP 01/12/15 05/11/18 PA-C [address] [place] [address] Gina Bautista, Physician Commercial Instructor Supervisor 01/31/15 PA-C [address] [place] [address] Gina Bautista, Assigned PCP 01/12/15 PA-C [address] [place] [address] documented as of this encounter
--- OUTSIDE RECORDS SUMMARY | 2021-10-29 13:50 | XMS_ITS | Encounter Summary ---
:1985 Author Organization [place] Address [address] [place] [address]. [place] [address] Care Team Providers Name Role Phone Unavailable Primary Care Provider Unavailable Encounter Details Date Type Department Care Team Description 07/21/2004 Historic Senior Mechanical Designer INTERFACED REPORT Ilana Levy Social History Tobacco Use Types Packs/Day Years Used Date Never Assessed Sex Assigned at Date Recorded Not on file documented as of this encounter Progress Notes Interface, Senior Mechanical Designer - 02/12/2011 3:18 AM WIRE COATING MACHINE OPERATOR : 89 CHIEF COMPLAINT: Ankle and knee [...] EPIDEMIOLOGIC HISTORY: Patient attends school. They visited [place] in May 2004. PHYSICAL EXAMINATION: VITAL SIGNS: [...] appointment. EM#[id number] KELLIE LEVY MD [place]: Document: [id number] CC: KELLIE LEVY MD [place], [place] Name: MR#: CARLEY CHAN -23 EMERGENCY ROOM ENCOUNTER Page 2 of 2 LCN: ERC DSC: 07/21/2004 [place], [place] Name: MR#: CARLEY CHAN [id number] : Admit Date: Account #: 1985 07/21/2004 [id number] Doctor: KELLIE LEVY MD EMERGENCY ROOM ENCOUNTER Page 1 of 2 COATING MACHINE OPERATOR documented in this encounter Plan of Treatment Upcoming Encounters Date Type Specialty Care Team Description 01/07/2022 Virtual Visit Endocrinology Natalya Jean MD [address] [place] [address] (Wo rk) documented as of this encounter Visit Diagnoses Not on filedocumented in this encounter
--- OUTSIDE RECORDS SUMMARY | 2021-10-29 13:50 | XMS_ITS | Encounter Summary ---
:1985 Author Organization [place] Address [address] [place] [address] Care Team Providers Name Role Phone Unavailable Primary Care Provider Unavailable Encounter Details Date Type Department Care Team Description 09/30/2005 Results Only [facility] [place] [address] (Wo rk) Social History Tobacco Use Types Packs/Day Years Used Date Never Assessed Sex Assigned at Date Recorded Not on file documented as of this encounter Plan of Treatment Upcoming Encounters Date Type Specialty Care Team Description 01/07/2022 Virtual Visit Endocrinology Natalya Jean MD [address] [place] [address] (Wo rk) documented as of this encounter Procedures Procedure Name Priority Date/Time Associated Diagnosis Comme [facility] X-RAY FOOT Routine 09/30/2005 10:59 AM Results [...]
--- OUTSIDE RECORDS SUMMARY | 2021-10-29 13:50 | XMS_ITS | Encounter Summary ---
:1985 Author Organization [place] Address [address] [place] [address] Care Team Providers Name Role Phone Unavailable Primary Care Provider Unavailable Encounter Details Date Type Department Care Team Description 05/23/2005 Emergency room Glory [facility] EMERGENCY PHYSIC [address] [address] [place] [address] (Wo rk) Social History Tobacco Use Types Packs/Day Years Used Date Never Assessed Sex Assigned at Date Recorded Not on file documented as of this encounter Progress Notes Interface, Switchman - 05/24/2005 10:20 PM FURNACE HELPER FINAL CHIEF COMPLAINT: Left lower quadrant pain. [...] home. Tylenol No. 3 for discomfort, Motrin pedd-quc-[id number]. Follow up with primary care physician in 3-5 days, clear liquids x8 hours and advance diet as tolerated. Return to emergency department if symptoms get worse. Electronically signed on 05/24/2005 22:19 by GLORY KRAFT MD MT: [id number] Name: CARLEY CHAN MRN: -23 Account: [id number] : 1985 Visit Date: 05/23/2005 Document: [id number] cc: [facility] ACE HELPER Interface, Switchman - 05/24/2005 3:26 PM FURNACE HELPER PRELIMINARY CHIEF COMPLAINT: Left lower quadrant pain. [...] home. Tylenol No. 3 for discomfort, Motrin [id number]-gcazfuh. Follow up with primary care physician in 3-5 days, clear liquids x8 hours and advance diet as tolerated. Return to emergency department if symptoms get worse. MD Khloe DUNAWAY: 05/23/2005 MT: [id number] Name: CARLEY CHAN Account: [id number] : 1985 Visit Date: 05/23/2005 Document: [id number] cc: [facility] ACE HELPER documented in this encounter Plan of Treatment Upcoming Encounters Date Type Specialty Care Team Description 01/07/2022 Virtual Visit Endocrinology Natalya Jean MD [address] [place] [address] (Wo rk) documented as of this encounter Visit Diagnoses Not on filedocumented in this encounter
--- OUTSIDE RECORDS SUMMARY | 2021-10-29 13:50 | XMS_ITS | Encounter Summary ---
:1985 Author Organization [place] Address [address] [place] [address]. [place] [address] Care Team Providers Name Role Phone Gina Bautista PA-C Primary Care Provider [phone] Gina Bautista PA-C Unavailable [phone] Gina Bautista PA-C Unavailable [phone] Gina Bautista PA-C Unavailable [phone] Encounter Details Date Type Department Care Team Description 04/27/2015 Orders Only [facility] Iro n deficiency anemia, [place] [facility] unspecified iron [address] [place] [address] Social History Tobacco Use Types Packs/Day [...] [address] [place], [place] [address] (Wo rk) documented as of this encounter Procedures Procedure Name Priority Date/Time Associated Diagnosis Comme nts IRON AND IRON Routine 04/27/2015 11:50 AM Iron deficiency Resu lts for this BINDING CAPACITY PLASTIC EXTRUSION OPERATOR anemia, unspecified proc edure are in iron deficiency the results section. FERRITIN Routine 04/27/2015 11:50 AM Iron deficiency Resul ts for this PLASTIC EXTRUSION OPERATOR anemia, unspecified procedur e are in iron deficiency the results section. documented in this encounter Results (ABNORMAL) Iron and iron binding capacity (04/27/2015 11:50 AM PLASTIC EXTRUSION OPERATOR) Patholo gist Method Time Signature Iron 13 (L) 35 - 180 [facility]dL [facility] Iron Binding 619 (H) 240 - 430 [place] Cap ug/dL [facility] Iron Saturation 2 (L) 15 - 46 % [place] [facility] [place] Specimen Anatomical Collection Method Collection Time Receive d Time (Source) Location / / Volume Laterality Blood specimen 04/27/2015 11:50 6 (specimen) AM PLASTIC EXTRUSION OPERATOR 11:51 AM PLASTIC EXTRUSION OPERATOR Gina Bautista PA-C LAB - BLOOD ORDERABLES Performing Organization Address City[facility] Phon e Number [facility] [address] [place] [address] (ABNORMAL) Ferritin (04/27/2015 11:50 AM PLASTIC EXTRUSION OPERATOR) P athologist Signature Ferritin 2 (L) 12 - 150 [facility] ng/mL [facility] [place] Specimen Anatomical Collection Method Collection Time Receive d Time (Source) Location / / Volume Laterality Blood specimen 04/27/2015 11:50 6 (specimen) AM PLASTIC EXTRUSION OPERATOR 11:51 AM PLASTIC EXTRUSION OPERATOR Gina Bautista PA-C LAB - BLOOD ORDERABLES Performing Organization Address City[facility] Phon e Number [facility] [address] [place] [address] documented in this encounter Visit Diagnoses Diagnosis Iron deficiency anemia, unspecified iron deficiency documented in this encounter Additional Health Concerns Assessment Noted Time PHQ-9 Depression Total Score: 16 04/26/2015 8:54 AM CS T documented as of this encounter Care Teams Wood Router Hand Relationship Specialty Start Date End Date Gina Bautista PCP - General Physician Wood Gang Sawyer 5 09/03/21 [place] [address] [place] [id number] Gina Bautista, PCP - Assigned PCP 01/12/15 05/11/18 PA-C [address] [place] [address] Gina Bautista, Physician Wood Gang Sawyer 01/31/15 PA-C [address] [place], [place] [address] Gina Bautista, Assigned PCP 01/12/15 PA-C [address] [place], [place] [address] documented as of this encounter
--- OUTSIDE RECORDS SUMMARY | 2021-10-29 13:50 | XMS_ITS | Encounter Summary ---
:1985 Author Organization [place] Address [address] [place] [address]. [place] [address] Care Team Providers Name Role Phone Gina Bautista PA-C Primary Care Provider [phone] Gina Bautista PA-C Unavailable [phone] Gina Bautista PA-C Unavailable [phone] Gina Bautista PA-C Unavailable [phone] Reason for Visit Reason Comments Panel Management Needs PAP Encounter Details Date Type Department Care Team Description 03/13/2015 [facility] Jigna Vance PA-C (Needs PAP ) [address] [phone] [id number] Social History Tobacco Use Types Packs/Day Years [...] for provider review: None Marianne Tony CMA (AAWI) 03/13/2015 3:48 PM CHER AND TENTER RANGE FEEDER documented in this encounter Plan of Treatment Upcoming Encounters Date Type Specialty Care Team Description 01/07/2022 Virtual Visit Endocrinology Natalya Jean MD [address] [place] [address] (Wo rk) documented as of this encounter Visit Diagnoses Not on filedocumented in this encounter Additional Health Concerns Assessment Noted Time PHQ-9 Depression Total Score: 13 02/01/2015 7:29 AM CS T documented as of this encounter Care Teams Opal Miner Relationship Specialty Start Date End Date Gina Bautista, PCP - General Physician Syrup Machine Laborer 5 09/03/21 PA-C [address] [place] [address] Gina Bautista, PCP - Assigned PCP 01/12/15 05/11/18 PA-C 77[address] [place] [address] Gina Bautista, Physician Syrup Machine Laborer 01/31/15 PA-C [address] [place] [address] Gina Bautista, Assigned PCP 01/12/15 PA-C [address] [place] [address] documented as of this encounter
--- OUTSIDE RECORDS SUMMARY | 2021-10-29 13:50 | XMS_ITS | Encounter Summary ---
:1985 Author Organization [facility] Address [address] [place] [address]. [place] [address] Care Team Providers Name Role Phone Gina Bautista PA-C Primary Care Provider [phone] Gina Bautista PA-C Unavailable [phone] Gina Bautista PA-C Unavailable [phone] Gina Bautista PA-C Unavailable [phone] Reason for Visit Reason Comments Urgent Care URI Colds x3-4- facial pain and pressure, sinus pressure, MAK, achy lymphnofe, L ear pain- unable to hear f rom L ear. Encounter Details Date Type Department Care Team Description 02/22/[address] [facility] Johny Puga, Acute sinusitis with Urgent Care Ferny gage MD symptoms greater than [address] [address] [address] [address] 10 days (Primary Dx) [place] [address] [phone] Social History Tobacco Use Types Packs/Day Years Used Date Never Smoker Smokeless Tobacco: Never Used Alcohol Use Standard Drinks/Week Comments Yes 0 (1 standard drink = 0.6 oz pure alcoho l) Sex Assigned at Date Recorded Not on file documented as of this encounter Last Filed Vital Signs Vital Sign Reading Time Taken Comments Blood Pressure 108/62 02/22/2017 11:59 AM COMPACTOR DRIVER Pulse 61 02/22/2017 11:59 AM COMPACTOR DRIVER Temperature 36.7 ??C (98.1 ??F) 02/22/2017 11:59 AM COMPACTOR DRIVER Respiratory Rate - - Oxygen Saturation 100% 02/22/2017 11:59 AM COMPACTOR DRIVER Inhaled Oxygen Concentration - - Weight - [...] have suggested that the patient Push fluids. ACTOR DRIVER documented in this encounter Nursing Notes Nury [...] Medication Reconciliation: complete Nury Nation CMA (AASANDRA) ACTOR DRIVER documented in this encounter Plan of Treatment Upcoming Encounters Date Type Specialty Care Team Description 01/07/2022 Virtual Visit Endocrinology Natalya Jean MD [address] [place] [address] (Wo rk) documented as of this encounter Visit Diagnoses Diagnosis Acute sinusitis with symptoms greater th an 10 days - Primary Acute sinusitis, unspecified documented in this encounter Additional Health Concerns Assessment Noted Time PHQ-9 Depression Total Score: 9 02/19/2017 2:07 PM COMPACTOR DRIVER documented as of this encounter Care Teams Polymerization Engineer Relationship Specialty Start Date End Date Gina Bautista, PCP - General Physician Bank Cashier 5 09/03/21 PA-C [address] [place] [address] Gina Bautista, PCP - Assigned PCP 01/12/15 05/11/18 PA-C 25544 [place] [address] Gina Bautista, Physician Bank Cashier 01/31/15 PA-C 47293 [place] [address] Gina Bautista, Assigned PCP 01/12/15 PA-C 45887 [place] [address] documented as of this encounter
--- OUTSIDE RECORDS SUMMARY | 2021-10-29 13:50 | XMS_ITS | Encounter Summary ---
:1985 Author Organization [employer] Address [address] [place] [address]. [place] [address] Care Team Providers Name Role Phone Gina Bautista PA-C Primary Care Provider [phone] Gina Bautista PA-C Unavailable [phone] Gina Bautista PA-C Unavailable [phone] Gina Bautista PA-C Unavailable [phone] Reason for Visit Reason Comments Medication Refill Encounter Details Date Type Department Care Team Description 03/22/[address] [facility] Lyle Bautista Medication Refill Lucia Vance PA-C [address] [address] [place] [phone] [place] [address] [phone] (Wo rk) Social History Tobacco Use Types Packs/Day Years Used Date Never Smoker Smokeless Tobacco: Never Used Alcohol Use Standard Drinks/Week Comments Yes 0 (1 standard drink = 0.6 oz pure alcoho l) Sex Assigned at Date Recorded Not on file documented as of this encounter Miscellaneous Notes Telephone Encounter - Violette Archer - 04/06/2017 3:23 PM CST Appointment scheduled TABLE FARM WORKER Telephone Encounter - Panchito Gandhi - 04/03/2017 10:43 AM CST 2nd attempt, LM to call back. Needs non-fasting lab only apt. Panchito Gandhi CMA (AAMN) TABLE FARM WORKER Telephone Encounter - Donya Damon - 03/26/2017 11:50 AM CST 1st attempt LVM to call back to make an appt TABLE FARM WORKER Telephone Encounter - Yvette Negrete RN - 03/25/2017 12:18 PM VEGETABLE FARM WORKER Medication is being filled for 1 time refill only due to: Patient needs labs recheck on Vitamin D level. Call to schedule lab only appointment, future order previously placed. Kim Negrete RN TABLE FARM WORKER Telephone Encounter - Kaye Gr - 03/23/2017 9:36 AM CST vitamin D (ERGOCALCIFEROL) 12233 UNIT capsule Last Written Prescription Date: 12/22/2016 Last Fill Quantity: 12, # refills: 0 Last Office Visit: 02/22/2017 Future Office visit: Next 5 appointments (look out 90 days) Apr 24, 2017 2:00 PM VEGETABLE FARM WORKER Return Visit with Lisa Lopez LP [facility] [address] [facility] [address] May 08, 2017 2:00 PM VEGETABLE FARM WORKER Return Visit with Lisa Lopez LP [facility] [address] [facility] [address] May 22, 2017 2:00 PM CDT Return Visit with Lisa Lopez LP [facility] [address] [facility] [phone] Routing refill request to provider for review/approval because: Drug not on the FMG, UMP or Health refill protocol or controlled substance TABLE FARM WORKER documented in this encounter Plan of Treatment Upcoming Encounters Date Type Specialty Care Team Description 01/07/2022 Virtual Visit Endocrinology Natalya Jean MD [address] [place] [address] (Wo rk) documented as of this encounter Visit Diagnoses Diagnosis Vitamin D deficiency Unspecified vitamin D deficiency documented in this encounter Additional Health Concerns Assessment Noted Time PHQ-9 Depression Total Score: 9 02/19/2017 2:07 PM VEGETABLE FARM WORKER documented as of this encounter Care Teams Enterprise Sales Executive Relationship Specialty Start Date End Date Gina Bautista, PCP - General Physician Fundraising Director 5 09/03/21 PA-C [address] [place] [address] Gina Bautista, PCP - Assigned PCP 01/12/15 05/11/18 PA-C [address] [place] [address] Gina Bautista, Physician Fundraising Director 01/31/15 PA-C [address] [place] [address] Gina Bautista, Assigned PCP 01/12/15 PA-C [address] [place] [address] documented as of this encounter
--- OUTSIDE RECORDS SUMMARY | 2021-10-29 13:50 | XMS_ITS | Encounter Summary ---
:1985 Author Organization [employer] Address [address] [place] [address]. [place] [address] Care Team Providers Name Role Phone Paul Palumbo PA-C Primary Care Provider [phone] Paul Palumbo PA-C Unavailable [phone] Paul Palumbo PA-C Unavailable [phone] Paul Palumbo PA-C Unavailable [phone] Reason for Referral Consultation - Closed Specialty Diagnoses / Procedures Referred By Contact Refer red To Contact Diagnoses Low hemoglobin S/P gastric bypass Vitamin B 12 deficiency Paul Palumbo [facility] D[facility]ES V[facility] [address] [place] [address] [address] [place] [address] Phone: [phone] Fax: Referral ID Status Reason Start Date Expiration Date Visits Requ ested Visits Authorized [id number] Closed 12/24/2016 12/24/2017 1 1 GUARD MANAGER - Closed Specialty Diagnoses / Procedures Referred By Contact Refer red To Contact Diagnoses Family planning counseling IUD check up Paul Palumbo [facility] DOLORES Vance [place] [address] [place] [address] [place] [address] [place] [address] Phone: Referral ID Status Reason Start Date Expiration Date Visits Requ ested Visits Authorized [id number] Closed 12/19/2016 12/19/2017 1 1 Reason for Visit Reason Comments Physical Flu Shot Encounter Details Date Type Department Care Team Description 12/19/2016 Office Visit [facility] Paul Palumbo general medical examination at a health care facility (Primary Dx); Clinic Jigna Vance PA-C 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 - GUARD MANAGER REFERRAL 9. Family planning counseling Patient interested in future , was high risk in past, had 4 miscarriages. Will refer to GUARD MANAGER to discuss future conception. - GUARD MANAGER REFERRAL 10. Need for prophylactic vaccination and inoculation against influenza - FLU VAC, SPLIT VIRUS IM > 3 YO (QUADRIVALENT) [65911] - Vaccine Administration, Initial [04949] COUNSELING: Reviewed preventive health counseling, as reflected [...] hemoglobin and mood issues. Paul Palumbo PA-C [facility] Answers for HPI/ROS submitted [...] [address] [place] [address] (Wo rk) Scheduled Referrals Name Type Priority Associated Diagnoses Order S chedule GUARD MANAGER REFERRAL Referral Routine Family planning Ordered: 12/19/2016 [...] or this PM CDT medical examination at [facility] are in a health care facility the [...] T4 reflex FUTURE 2mo (04/10/2017 2:35 PM BAR ROLLER) athologist Signature TSH 10.56 (H) 0.40 - 04/12/2017 [facility] 4.00 mU/L 1:[address] [facility] Specimen Anatomical Collection Method Collection Time Receive d Time (Source) Location / / Volume Laterality Blood specimen 04/10/2017 2:35 PM 018 2:36 (specimen) BAR ROLLER PM BAR ROLLER Paul Palumbo PA-C LAB - BLOOD ORDERABLES Performing Organization Address City/State/ZIP Code Phon e Number [facility] [address] [place] [address] (ABNORMAL) Vitamin D Deficiency (04/10/2017 2:35 PM BAR ROLLER) athologist Signature Vitamin D 13 (L) 20 - 75 04/11/2017 [facility] ug/L 11:46 AM BAR ROLLER [facility] Comment: Season, race, dietary intake, and treatm ent affect the concentration of 64-jvampao-Fqtavpu D. Values may decreas e during winter [...] specimen 04/10/2017 2:35 PM 018 2:36 (specimen) BAR ROLLER PM BAR ROLLER Paul Palumbo PA-C LAB - BLOOD ORDERABLES Performing Organization Address City/State/ZIP Code Phon e Number [facility] [address] [place] [address] [facility] T4 free (12/19/2016 3:33 PM CDT) P athologist Signature T4 Free 1.00 0.76 - 1.46 12/20/2016 [facility] ng/dL 1:[address] [facility] Specimen Anatomical Collection Method Collection Time Receive d Time (Source) Location / / Volume Laterality 12/19/2016 3:33 PM 7 3:34 CDT PM CDT Paul Palumbo PA-C LAB - BLOOD ORDERABLES Performing Organization Address City/State/ZIP Code Phon e Number [facility] [address] [place] [address] WBC Differential (12/19/2016 3:33 PM CDT) [facility] gist Method Time Signature Diff Method Automated 12/19/2016 [place] Method 9:06 PM [facility] % Neutrophils 64.0 % 12/19/2016 [place] 9:06 PM [facility] % Lymphocytes 25.2 % 12/19/2016 [place] 9:06 PM [facility] % Monocytes 7.7 % 12/19/2016 [place] 9:06 PM [facility] % Eosinophils 2.3 % 12/19/2016 [place] 9:06 PM [facility] % Basophils 0.5 % 12/19/2016 [place] 9:06 PM [facility] % Immature 0.3 % 12/19/2016 [place] Granulocytes 9:06 PM [facility] Nucleated RBCs 0 0 /100 12/19/2016 [facility] 9:06 PM [facility] Absolute 4.2 1.6 - 8.3 12/19/2016 [facility] Neutrophil 10e9/L 9:06 PM [facility] Absolute 1.7 0.8 - 5.3 12/19/2016 [facility] Lymphocytes 10e9/L 9:06 PM [facility] Absolute 0.5 0.0 - 1.3 12/19/2016 [facility] Monocytes 10e9/L 9:06 PM [facility] Absolute 0.2 0.0 - 0.7 12/19/2016 [facility] Eosinophils 10e9/L 9:06 PM [facility] Absolute 0.0 0.0 - 0.2 12/19/2016 [facility] Basophils 10e9/L 9:06 PM [facility] Abs Immature 0.0 0 - 0.4 12/19/2016 [facility] Granulocytes 10e9/L 9:06 PM [facility] Absolute 0.0 12/19/2016 [facility] Nucleated RBC 9:06 PM [facility] Anisocytosis Slight 12/19/2016 [facility] 9:06 PM [facility] Ovalocytes Slight 12/19/2016 [facility] 9:06 PM [facility] Microcytes Present 12/19/2016 [facility] 9:06 PM [facility] Platelet Normal 12/19/2016 [facility] Estimate 9:06 PM [facility] Specimen Anatomical Collection Method Collection Time Receive d Time (Source) Location / / Volume Laterality 12/19/2016 3:33 PM 7 4:07 CDT PM CDT Paul Palumbo PA-C LAB - BLOOD ORDERABLES Performing Organization Address City/State/ZIP Code Phon e Number [facility] [address] [facility] [address] [phone] Reticulocyte Count (12/19/2016 3:33 PM CDT) P athologist Signature % Retic 1.1 0.5 - 2.0 12/19/2016 [place] % 7:25 PM [facility] Absolute Retic 43.0 25 - 95 12/19/2016 [place] 10e9/L 7:25 PM CDT [facility] Specimen Anatomical Collection Method Collection Time Receive d Time (Source) Location / / Volume Laterality Blood specimen 12/19/2016 3:33 PM 017 4:07 (specimen) CDT PM CDT Paul Palumbo PA-C LAB - BLOOD ORDERABLES Performing Organization Address City/State/ZIP Code Phon e Number [facility] [address] [address] [facility] [address] [phone] Blood Morphology Pathologist Review (12/19/2016 3:33 PM CDT) Component Value Ref Test Analysis Performed Pathologis t Range Method Time At Signature Copath Patient Name: TASHA PHELAN Report MR#: [id number] Specimen #: [id number] Collected: 12/19/2016 Received: 12/22/2016 Reported: 12/22/2016 10:01 [...] 12-22-2016 @ 10:01 AM). CPT Codes: A: 91254-MTZO TESTING LAB LOCATION: [facility] [address] [place], [place] ??[phone] COLLECTION SITE: Client: ??[facility] Location: ??[facility] (R) Specimen Anatomical Collection [...] 12/19/2016 [facility] pg/mL 10:23 PM CDT [facility] Specimen Anatomical Collection Method Collection Time Receive d Time (Source) Location / / Volume Laterality Blood specimen 12/19/2016 3:33 PM 017 3:34 (specimen) CDT PM CDT Paul Palumbo PA-C LAB - BLOOD ORDERABLES Performing Organization Address City/State/ZIP Code Phon e Number [phone] [place] [address] (ABNORMAL) Vitamin D Deficiency (12/19/2016 3:33 PM CDT) athologist Signature Vitamin D 17 (L) 20 - 75 12/21/2016 [facility] Deficiency ug/L 3:23 PM CDT [facility] Comment: Season, race, dietary intake, and treatm ent affect the concentration of 35-hhzwdla-Crwyfva D. Values may decreas e during winter [...] Organization Address City/State/ZIP Code Phon e Number [facility] [address] [place], [place] [phone] [place] [address] (ABNORMAL) Comprehensive metabolic panel (12/19/2016 3:33 PM CDT) [facility] Method Time Signature Sodium 140 133 - 144 12/20/2016 [place] mmol/L 12:[address] [facility] Potassium 4.2 3.4 - 5.3 12/20/2016 [place] mmol/L 12:54 PM CDT [facility] Chloride 110 (H) 94 - 109 12/20/2016 [place] mmol/L 12:[address] [facility] Carbon Dioxide 21 20 - 32 12/20/2016 [facility] mmol/L 12:54 PM CDT [facility] Anion Gap 9 3 - 14 12/20/2016 [place] mmol/L 12:54 PM CDT [facility] Glucose 85 70 - 99 12/20/2016 [place] mg/dL 12:54 PM CDT [facility] Urea Nitrogen 9 7 - 30 12/20/2016 [place] mg/dL 12:54 PM CDT [facility] Creatinine 0.75 0.52 - 12/20/2016 [facility] 1.04 mg/dL 12:[address] [facility] GFR Estimate >90 >60 12/20/2016 [place] mL/min/1.7 12:54 PM CDT [address]INICS m2 [facility] Comment: Non GFR Calc GFR Estimate If >90 >60 mL/min/1.7m2 12/20/2016 12:54 PM [facility] Black T [facility] Comment: GFR Calc Calcium 8.7 8.5 - 10.1 12/20/2016 12:54 PM [facility] mg/dL CDT [facility] Bilirubin Total 0.4 0.2 - 1.3 mg/dL 12/20/2016 12:[address] [facility] Albumin 3.9 3.4 - 5.0 g/dL 12/20/2016 12:54 PM [facility] IEREDWOOD LLCT [facility] Protein Total 7.6 6.8 - 8.8 g/dL 12/20/2016 12:54 PM [facility] Alkaline Phosphatase 61 40 - 150 U/L 12/20/2016 1:[address] [facility]1]O ALT 20 0 - 50 U/L 12/20/2016 12:[address] AST 15 0 - 45 U/L 12/20/2016 12:[address] [facility] Specimen Anatomical Collection Method Collection Time Receive d Time (Source) Location / / Volume Laterality Blood specimen 12/19/2016 3:33 PM 017 3:34 (specimen) CDT PM CDT Paul Palumbo PA-C LAB - BLOOD ORDERABLES Performing Organization Address City/[facility]/ZIP Code Phon e Number [facility] [address] [place] [address] (ABNORMAL) TSH with free T4 reflex (12/19/2016 3:33 PM CDT) athologist Signature TSH 8.78 (H) 0.40 - 12/20/2016 [facility] 4.00 mU/L 1:[address] [facility] Specimen Anatomical Collection Method Collection Time Receive d Time (Source) Location / / Volume Laterality Blood specimen 12/19/2016 3:33 PM 017 3:34 (specimen) CDT PM CDT Paul Palumbo PA-C LAB - BLOOD ORDERABLES Performing Organization Address City/[facility]/ZIP Code Phon e Number [facility] [address] [place] [address] (ABNORMAL) Iron and iron binding capacity (12/19/2016 3:33 PM CDT) Patholo gist Method Time Signature Iron 10 (L) 35 - 180 12/20/2016 [place] ug/dL 12:[address] [facility] Iron Binding 528 (H) 240 - 430 12/20/2016 [place] Cap ug/dL 12:54 PM CDT [facility] Iron Saturation 2 (L) 15 - 46 % 12/20/2016 [facility] Index 12:[address] [facility] Specimen Anatomical Collection Method Collection Time Receive d Time (Source) Location / / Volume Laterality Blood specimen 12/19/2016 3:33 PM 017 3:34 (specimen) CDT PM CDT Paul Palumbo PA-C LAB - BLOOD ORDERABLES Performing Organization Address City/[facility]/ZIP Code Phon e Number [facility] [address] [place] [address] (ABNORMAL) Ferritin (12/19/2016 3:33 PM CDT) athologist Signature Ferritin 2 (L) 12 - 150 12/20/2016 [facility] ng/mL 12:[address] [facility] Specimen Anatomical Collection Method Collection Time Receive d Time (Source) Location / / Volume Laterality Blood specimen 12/19/2016 3:33 PM 017 3:34 (specimen) CDT PM CDT Paul Palumbo PA-C LAB - BLOOD ORDERABLES Performing Organization Address City/[facility]/ZIP Code Phon e Number [facility] [address] [place] [address] (ABNORMAL) CBC with platelets (12/19/2016 3:33 PM CDT) P athologist Signature WBC 6.4 4.0 - 11.0 12/19/2016 [place] 10e9/L 3:43 PM CDT [facility] [place] RBC Count 3.97 3.8 - 5.2 12/19/2016 [place] 10e12/L 3:43 PM CDT [facility] Hemoglobin 7.2 (L) 11.7 - 15.7 12/19/2016 [place] g/dL 3:43 PM CDT [facility] Comment: Critical Value called to and read back b y TO PAUL PALUMBO PAC ON12/19/16 1540 DA Hematocrit 25.5 (L) 35.0 - 47.0 % 12/19/2016 3:43 PM CDT [facility] MCV 64 (L) 78 - 100 fl 12/19/2016 3:43 PM CDT [facility] IEW [facility] MCH 18.1 (L) 26.5 - 33.0 pg 12/19/2016 3:43 PM CDT FA [facility] MCHC 28.2 (L) 31.5 - 36.5 g/dL 12/19/2016 3:43 PM CDT [facility] Comment: Results confirmed by repeat mónica t RDW 17.4 (H) 10.0 - 15.0 % 12/19/2016 3:43 PM [facility] CDT [place] Platelet Count 375 150 - 450 10e9/L 12/19/2016 3:43 PM [facility] CDT [place] Specimen Anatomical Collection Method Collection Time Receive d Time (Source) Location / / Volume Laterality Blood specimen 12/19/2016 3:33 PM 017 3:34 (specimen) CDT PM CDT Paul Palumbo PA-C LAB - BLOOD ORDERABLES Performing Organization Address City/State/ZIP Code Phon e Number [facility] [address] [address] Pap imaged thin layer screen reflex to HPV if ASCUS - recommend age 25 - 29 (12/19/2016 3:05 PM CDT) Component Value Ref Test Analysis Performed At [facility] Range Method Time Signature PAP NIL COPATH Copath Report COPATH Patient Name: TASHA PHELAN MR#: [id number] Specimen #: [id number] Collected: 12/19/2016 Received: 12/22/2016 Reported: 12/23/2016 13:10 [...] MATEUSZ Rodrigez (ASCP) Processed and screened at [facility] CLINICAL HISTORY: Currently not having periods, Intra-Uterine Device, Papanicolaou Test Limitations: ??Cervical cytology is a scre ening test with limited sensitivity; regular screening is critical for cancer prevention; Pap tests are primarily effective for the diagnosis/prevention of squamous cell carcinoma, not adenoca rcinomas or other cancers. TESTING LAB LOCATION: [address] ??[phone] COLLECTION SITE: Client: ??[facility] Location: [facility] (R) Specimen (Source) Anatomical Collection Method Collection Time Re ceived Time Location / / Volume Laterality Cytologic 12/19/2016 3:05 12/22/2016 material PM CDT 10:43 AM CDT (specimen) Paul [facility] [place] Performing Organization Address City/State/ZIP [...] documented as of this encounter Care Teams Rn Appeals Relationship Specialty Start Date End Date Paul Palumbo, PCP - General Physician Mechanical Pencils Assembler 5 09/03/21 [place] [address] [address] Paul Palumbo, PCP - Assigned PCP 01/12/15 05/11/18 [place] [address] [place], [place] [address] Paul Palumbo, Physician Mechanical Pencils Assembler 01/31/15 [place] [address] [place] [address] Paul Palumbo, Assigned PCP 01/12/15 [place] [address] [address] [address] documented as of this encounter
--- OUTSIDE RECORDS SUMMARY | 2021-10-29 13:50 | XMS_ITS | Encounter Summary ---
:1985 Author Organization [facility] Address [address] [place] [address]. [place] [address] Care Team Providers Name Role Phone Gina Bautista PA-C Primary Care Provider [phone] Gina Bautista PA-C Unavailable [phone] Gina Bautista PA-C Unavailable [phone] Gina Bautista PA-C Unavailable [phone] Encounter Details Date Type Department Care Team Description 04/27/[address] [facility] Lyle Bautista [place] PA-C [address] [place] [address] [place] [phone] (Wo rk) Social History Tobacco Use Types Packs/Day Years Used Date Never Smoker Smokeless Tobacco: Never Used Alcohol Use Standard Drinks/Week Comments Yes 0 (1 standard drink = 0.6 oz pure alcoho l) Sex Assigned at Date Recorded Not on file documented as of this encounter Miscellaneous Notes Telephone Encounter - Gina Bautista PA-C - 04/27/2015 8:25 AM EMPLOYEE COMMUNICATIONS SPECIALIST Spoke with patient regarding labs. Will restart Synthroid 75mcg daily, recheck in 6-8 weeks Discussed low hemoglobin, will have her get labs today and then start iron replacement BID, recheck in 6-8 weeks as well. Discussed remained of labs. Gina Bautista PA-C [employer] COMMUNICATIONS SPECIALIST Telephone Encounter - Monica Tony CMA - 04/27/2015 8:20 AM CST Per patient, placed letter at commercial front load operator for patient picker machine operator Marianne Chavo CAMPOS (AAMS) 04/27/2015 8:21 AM OYEE COMMUNICATIONS SPECIALIST Telephone Encounter - Gina Bautista PA-C - 04/27/2015 8:13 AM EMPLOYEE COMMUNICATIONS SPECIALIST Left Vm for patient, would like to discuss labs results. Gina Bautista PA-C [employer]YEE COMMUNICATIONS SPECIALIST documented in this encounter Plan of Treatment Upcoming Encounters Date Type Specialty Care Team Description 01/07/2022 Virtual Visit Endocrinology Natalya Jean MD [address] [place] [address] (Wo rk) documented as of this encounter Visit Diagnoses Not on filedocumented in this encounter Additional Health Concerns Assessment Noted Time PHQ-9 Depression Total Score: 16 04/26/2015 8:54 AM CS T documented as of this encounter Care Teams Wedding Photographer Relationship Specialty Start Date End Date Gina Bautista, PCP - General Physician Mechanical System Technician 5 09/03/21 [place] [address] [address] [address] Gina Bautista PCP - Assigned PCP 01/12/15 05/11/18 [place] [address] [address] [address] Gina Bautista, Physician Mechanical System Technician 01/31/15 [place] [address] [place] [address] Gina Bautista, Assigned PCP 01/12/15 [place] [address] [place] [address] documented as of this encounter
--- OUTSIDE RECORDS SUMMARY | 2021-10-29 13:50 | XMS_ITS | Encounter Summary ---
:1985 Author Organization [place] Address [address] [place] [address]. [place] [address] Care Team Providers Name Role Phone Gina Bautista PA-C Primary Care Provider [phone] Gina Bautista PA-C Unavailable [phone] Gina Bautista PA-C Unavailable [phone] Gina Bautista PA-C Unavailable [phone] Reason for Visit Mental Health Outpatient (Routine) - Closed Specialty Diagnoses / Procedures Referred By Contact Refer red To Contact Gina Bautista [facility] JANETTE BERNAL [facility] [id number] [place] [id number] [place] [address] [place] [address] Phone: Fax: Referral ID Status Reason Start Date Expiration Date Visits Requ ested Visits Authorized [facility] Closed 01/14/2017 01/14/2018 1 52 Encounter Details Date Type Department Care Team Description 02/19/2017 Office Visit [facility] Lisa Lopez LP Anxiety (Primary Dx) Services [place] [id number] [facility] [address] [place] [phone] Social History Tobacco Use [...] decree) Talks to relatives ( who are laser beam trim operator) to get concrete info. Explored TIP [...] plan. Lisa Lopez LP February 19, 2017 SPECIALIST documented in this encounter Plan of Treatment Upcoming Encounters Date Type Specialty Care Team Description 01/07/2022 Virtual Visit Endocrinology Natalya Jean MD [address] [place] [address] (Wo rk) documented as of this encounter Visit Diagnoses Diagnosis Anxiety - Primary Anxiety state, unspecified documented in this encounter Additional Health Concerns Assessment Noted Time PHQ-9 Depression Total Score: 9 02/19/2017 2:07 PM BODY SPECIALIST documented as of this encounter Care Teams Motorized Squad Lieutenant Relationship Specialty Start Date End Date Gina Bautista, PCP - General Physician Service And Repair Supervisor 5 09/03/21 PA-C [id number] [place] [address] Gina Bautista, PCP - Assigned PCP 01/12/15 05/11/18 PA-C [id number] [place] [id number] Gina Bautista, Physician Service And Repair Supervisor 01/31/15 PA-C [id number] [place] [address] Gina Bautista, Assigned PCP 01/12/15 PA-C [id number] [place] [id number] documented as of this encounter
--- OUTSIDE RECORDS SUMMARY | 2021-10-29 13:50 | XMS_ITS | Encounter Summary ---
:1985 Author Organization [place] Address [address] [place] [address]. [place] [address] Care Team Providers Name Role Phone Gina Bautista PA-C Primary Care Provider [phone] Gina Bautista PA-C Unavailable [phone] Gina Bautista PA-C Unavailable [phone] Gina Bautista PA-C Unavailable [phone] Encounter Details Date Type Department Care Team Description 04/26/2015 Orders Only [facility] Enc ounter for routine adult physical exam with abnormal findings; [facility] Overweight; [address] Hypothyroidism due to acquir ed atrophy of thyroid [place] [phone] Social History Tobacco Use Types Packs/Day Years [...] [address] [place], [place] [address] (Wo rk) documented as of this encounter Procedures Procedure Name Priority Date/Time Associated Comments Diagnosis TSH WITH FREE T4 Routine 04/26/2015 8:26 AM Encounter for Resu lts for this REFLEX APPLICATION DESIGN ENGINEER routine adult procedure are in physical exam with the resul ts abnormal finding s section. Hypothyroidism due to acquired atrophy of thyroid T4 FREE Routine 04/26/2015 8:26 AM Encounter for Results for this APPLICATION DESIGN ENGINEER routine adult procedure are in physical exam with the resul ts abnormal findings section. LIPID REFLEX TO DIRECT Routine 04/26/2015 8:26 AM Encounter fo r Results for this LDL PANEL APPLICATION DESIGN ENGINEER routine adult procedure are in physical exam with the resul ts abnormal findings section. COMPREHENSIVE Routine 04/26/2015 8:26 AM Encounter for Results for this METABOLIC PANEL APPLICATION DESIGN ENGINEER routine adult procedure a re in physical exam with the resul ts abnormal finding s section. Overweight CBC WITH PLATELETS Routine 04/26/2015 8:26 AM Encounter for Re sults for this APPLICATION DESIGN ENGINEER routine adult procedure are in physical exam with the resul ts abnormal findings section. documented in this encounter Results T4 free (04/26/2015 8:26 AM APPLICATION DESIGN ENGINEER) athologist Signature T4 Free 0.98 0.76 - 1.46 [facility] ng/dL [facility] Specimen Anatomical Collection Method Collection Time Receive d Time (Source) Location / / Volume Laterality 04/26/2015 8:26 AM 6 8:27 APPLICATION DESIGN ENGINEER AM APPLICATION DESIGN ENGINEER Gina Bautista PA-C LAB - BLOOD ORDERABLES Performing Organization Address City/State/ZIP Code Phon e Number [facility] [address] [place] [address] (ABNORMAL) CBC with platelets (04/26/2015 8:26 AM APPLICATION DESIGN ENGINEER) athologist Signature WBC 4.7 4.0 - 11.0 [place] 10e9/L [facility] RBC Count 4.41 3.8 - 5.2 [place] 10e12/L [facility] Hemoglobin 8.4 (L) 11.7 - 15.7 [place] g/dL [facility] Comment: Results confirmed by repeat mónica t Hematocrit 29.1 (L) 35.0 - 47.0 % [facility] [place] MCV 66 (L) 78 - 100 fl [facility] [place] MCH 19.0 (L) 26.5 - 33.[address] [facility] S [place] MCHC 28.9 (L) 31.5 - 36.5 g/dL [facility] Comment: Results confirmed by repeat mónica t RDW 16.7 (H) 10.0 - 15.0 % [facility] Platelet Count 321 150 - 450 10e9/L [facility] Specimen Anatomical Collection Method Collection Time Receive d Time (Source) Location / / Volume Laterality Blood specimen 04/26/2015 8:26 AM 016 8:27 (specimen) APPLICATION DESIGN ENGINEER AM APPLICATION DESIGN ENGINEER Gina Bautista PA-C LAB - BLOOD ORDERABLES Performing Organization Address City/[facility]/ZIP Code Phon e Number [facility] [address] [place], [place] [address] LIPID REFLEX TO DIRECT LDL PANEL (04/26/2015 8:26 AM APPLICATION DESIGN ENGINEER) P athologist Signature Cholesterol 109 <200 mg/dL [facility] Triglycerides 70 <150 mg/dL [facility] S [facility] Comment: Fasting specimen HDL Cholesterol 54 >49 mg/dL [place] [facility] LDL Cholesterol Calculated 41 <100 mg/dL [facility] Comment: Desirable: <100 mg/dl Non HDL Cholesterol 55 <130 mg/dL [facility] Specimen Anatomical Collection Method Collection Time Receive d Time (Source) Location / / Volume Laterality Blood specimen 04/26/2015 8:26 AM 016 8:27 (specimen) APPLICATION DESIGN ENGINEER AM APPLICATION DESIGN ENGINEER Gina Bautista PA-C LAB - BLOOD ORDERABLES Performing Organization Address City/[facility]/ZIP Code Phon e Number [facility] [address] [place] [address] (ABNORMAL) TSH with free T4 reflex (04/26/2015 8:26 AM APPLICATION DESIGN ENGINEER) P athologist Signature TSH 7.92 (H) 0.40 - [facility] 4.00 mU/L [facility] Specimen Anatomical Collection Method Collection Time Receive d Time (Source) Location / / Volume Laterality Blood specimen 04/26/2015 8:26 AM 016 8:27 (specimen) APPLICATION DESIGN ENGINEER AM APPLICATION DESIGN ENGINEER Gina Bautista PA-C LAB - BLOOD ORDERABLES Performing Organization Address City/State/ZIP Code Phon e Number [facility] [address] [place] [address] (ABNORMAL) Comprehensive metabolic panel (04/26/2015 8:26 AM APPLICATION DESIGN ENGINEER) [facility] gist Method Time Signature Sodium 140 133 - 144 [place] mmol/L [facility] Potassium 4.1 3.4 - 5.3 [place] mmol/L [facility] Chloride 109 94 - 109 [place] mmol/L [facility] Carbon Dioxide 23 20 - 32 [place] mmol/L [facility] Anion Gap 8 3 - 14 [place] mmol/L [facility] Glucose 87 70 - 99 [place] mg/dL [facility] Urea Nitrogen 10 7 - 30 [place] mg/dL [facility] Creatinine 0.74 0.52 - [place] 1.04 CLINICS mg/dL [facility] GFR Estimate >90 >60 [place] Non GFR Calc mL/min/1. CLINICS 7m2 [facility] GFR Estimate If >90 >60 [place] Black GFR Calc mL/min/1. CLIN ICS 7m2 [facility] Calcium 8.3 (L) 8.5 - [facility] 10.1 CLINICS mg/dL [facility] Bilirubin Total 0.5 0.2 - 1.3 [place] mg/dL [facility] Albumin 3.8 3.4 - 5.0 [place] g/dL [facility] Protein Total 7.4 6.8 - 8.8 [place] g/dL [facility] Alkaline 71 40 - 150 [place] Phosphatase U/L [facility] ALT 19 0 - 50 [place] U/L [facility] AST 14 0 - 45 [facility] U/L [facility] Specimen Anatomical Collection Method Collection Time Receive d Time (Source) Location / / Volume Laterality Blood specimen 04/26/2015 8:26 AM 016 8:27 (specimen) APPLICATION DESIGN ENGINEER AM APPLICATION DESIGN ENGINEER Gina Bautista PA-C LAB - BLOOD ORDERABLES Performing Organization Address City/State/ZIP Code Phon e Number [facility] [address] [place] [address] documented in this encounter Visit Diagnoses Diagnosis Encounter for routine adult physical exa m with abnormal findings Overweight 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 documented in this encounter Additional Health Concerns Assessment Noted Time PHQ-9 Depression Total Score: 16 04/26/2015 8:54 AM CS T documented as of this encounter Care Teams Roving Sizer Relationship Specialty Start Date End Date Gina Bautista, PCP - General Physician Junior Linux Systems Administrator 5 09/03/21 PA-C [id number] [place] [address] Gina Bautista, PCP - Assigned PCP 01/12/15 05/11/18 PA-C [id number] [place] [address] Gina Bautista, Physician Junior Linux Systems Administrator 01/31/15 PA-C [id number] [place] [address] Gina Bautista, Assigned PCP 01/12/15 PA-C [address] [place] [address] documented as of this encounter
--- OUTSIDE RECORDS SUMMARY | 2021-10-29 13:50 | XMS_ITS | Encounter Summary ---
:1985 Author Organization [place] Address [address] [place] [address]. [place] [address] Care Team Providers Name Role Phone Gina Palumbo PA-C Primary Care Provider [phone] Gina Palumbo PA-C Unavailable [phone] Gina Palumbo PA-C Unavailable [phone] Gina Palumbo PA-C Unavailable [phone] Reason for Visit Reason Comments Physical Annual Physical with PAP Encounter Details Date Type Department Care Team Description [facility]2015 [facility] exam with abnormal findings (Primary Dx); [facility] Vance PA-C Overweight; [address] [address] [address] 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; [address] [place] Adjustment disorder with dep ressed mood; [place] [address] Iron deficiency anemia, unspecified iron deficiency [id number] [...] Comments Blood Pressure 126/62 04/25/2015 1:02 PM INSTALLER MOLDING AND TRIM Pulse 80 04/25/2015 1:02 PM INSTALLER MOLDING AND TRIM Temperature 36.6 ??C (97.9 ??F) 04/25/2015 1:02 PM INSTALLER MOLDING AND TRIM Respiratory Rate 16 04/25/2015 1:02 PM INSTALLER MOLDING AND TRIM Oxygen Saturation 100% 04/25/2015 1:02 PM INSTALLER MOLDING AND TRIM Inhaled Oxygen Concentration - - Weight 82.1 kg (181 lb) 04/25/2015 1:02 PM INSTALLER MOLDING AND TRIM Height 167 cm (5' 5.75) 04/25/2015 1:02 PM INSTALLER MOLDING AND TRIM Body Mass Index 29.44 04/25/2015 1:02 PM INSTALLER MOLDING AND TRIM documented in this encounter Patient Instructions Patient [...] months for an exam and cleaning. ?? ALLER MOLDING AND TRIM documented in this encounter Progress Notes Gina [...] Maxwell and colleagues,with an educational kenia from [employer].) 04/25/2015 01/31/2015 Q1: Little interest or pleasure [...] LDL, TRIG, CHOLHDLRATIO, NHDL in the last 27354 hours. Reviewed orders with patient. 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 Patient Active [...] Preventive Guidelines Dietary Guidelines for Americans, 2010 [employer] Gina Palumbo PA-C [facility] ALLER MOLDING AND TRIM documented in this encounter Nursing Notes Monica [...] phone number for results from this visit [phone] OK to leave message Marianne Tony CMA (AAMA) 04/25/2015 1:03 PM ALLER MOLDING AND TRIM documented in this encounter Miscellaneous Notes Addendum Note - Gina Palumbo PA-C - 04/27/2015 8:25 AM INSTALLER MOLDING AND TRIM Addended by: GINA PALUMBO on: 04/27/2015 08:25 AM Modules accepted: Orders ALLER MOLDING AND TRIM documented in this encounter Plan of Treatment Upcoming Encounters Date Type Specialty Care Team Description 01/07/2022 Virtual Visit Endocrinology Natalya Jean MD [address] [place] [address] (Wo rk) documented as of this encounter Procedures Procedure Name Priority Date/Time Associated Comments Diagnosis UA MACROSCOPIC WITH Routine 04/25/2015 12:44 Encounter for Res ults for this REFLEX TO MICROSCOPIC PM INSTALLER MOLDING AND TRIM routine adult priscilla caballero are in AND CULTURE physical exam with the resul ts abnormal findings section. documented in this encounter Results (ABNORMAL) Iron and iron binding capacity (04/27/2015 11:50 AM INSTALLER MOLDING AND TRIM) [facility] Method Time Signature Iron 13 (L) 35 - 180 [place] ug/dL [facility] Iron Binding 619 (H) 240 - 430 [place] Cap ug/dL [facility] Iron Saturation 2 (L) 15 - 46 % [place] Index [facility] Specimen Anatomical Collection Method Collection Time Receive d Time (Source) Location / / Volume Laterality Blood specimen 04/27/2015 11:50 6 (specimen) AM INSTALLER MOLDING AND TRIM 11:51 AM INSTALLER MOLDING AND TRIM Gina Palumbo PA-C LAB - BLOOD ORDERABLES Performing Organization Address City/[facility]/ZIP Code Phon e Number [facility] [address] [place] [address] (ABNORMAL) Ferritin (04/27/2015 11:50 AM INSTALLER MOLDING AND TRIM) athologist Signature Ferritin 2 (L) 12 - 150 [facility] ng/mL [facility] Specimen Anatomical Collection Method Collection Time Receive d Time (Source) Location / / Volume Laterality Blood specimen 04/27/2015 11:50 6 (specimen) AM INSTALLER MOLDING AND TRIM 11:51 AM INSTALLER MOLDING AND TRIM Gina Palumbo PA-C LAB - BLOOD ORDERABLES Performing Organization Address City/State/ZIP Code Phon e Number [facility] [address] [place] [address] (ABNORMAL) TSH with free T4 reflex (04/26/2015 8:26 AM INSTALLER MOLDING AND TRIM) P athologist Signature TSH 7.92 (H) 0.40 - [facility] 4.00 mU/L [facility] Specimen Anatomical Collection Method Collection Time Receive d Time (Source) Location / / Volume Laterality Blood specimen 04/26/2015 8:26 AM 016 8:27 (specimen) INSTALLER MOLDING AND TRIM AM INSTALLER MOLDING AND TRIM Gina Palumbo PA-C LAB - BLOOD ORDERABLES Performing Organization Address City/State/ZIP Code Phon e Number [facility] [address] [place] [address] (ABNORMAL) Comprehensive metabolic panel (04/26/2015 8:26 AM INSTALLER MOLDING AND TRIM) [facility] gist Method Time Signature Sodium 140 133 - 144 [place] mmol/L [facility] Potassium 4.1 3.4 - 5.3 [place] mmol/L [facility] Chloride 109 94 - 109 [place] mmol/L [facility] Carbon Dioxide 23 20 - 32 [place] mmol/L [facility] Anion Gap 8 3 - 14 [place] mmol/L [facility] Glucose 87 70 - 99 [place] mg/dL [facility] Urea Nitrogen 10 7 - 30 [place] mg/dL [facility] Creatinine 0.74 0.52 - [facility] 1.04 CLINICS mg/dL [facility] GFR Estimate >90 >60 [place] Non GFR Calc mL/min/1. [facility]INICS 7m2 [facility] GFR Estimate If >90 >60 [place] Black GFR Calc mL/min/1. CLIN ICS 7m2 [facility] Calcium 8.3 (L) 8.5 - [facility] 10.1 [facility] mg/dL [facility] Bilirubin Total 0.5 0.2 - 1.3 [place] mg/dL [facility] Albumin 3.8 3.4 - 5.0 [place] g/dL [facility] Protein Total 7.4 6.8 - 8.8 [place] g/dL [facility] Alkaline 71 40 - 150 [place] Phosphatase U/L [facility] ALT 19 0 - 50 [place] U/L [facility] AST 14 0 - 45 [place] U/L [facility] Specimen Anatomical Collection Method Collection Time Receive d Time (Source) Location / / Volume Laterality Blood specimen 04/26/2015 8:26 AM 016 8:27 (specimen) INSTALLER MOLDING AND TRIM AM INSTALLER MOLDING AND TRIM Gina Palumbo PA-C LAB - BLOOD ORDERABLES Performing Organization Address City/[facility]/ZIP [facility] Phon e Number [facility] [address] [place] [address] (ABNORMAL) CBC with platelets (04/26/2015 8:26 AM INSTALLER MOLDING AND TRIM) athologist Signature WBC 4.7 4.0 - 11.0 [place] 10e9/L [facility] RBC Count 4.41 3.8 - 5.2 [place] 10e12/L [facility] Hemoglobin 8.4 (L) 11.7 - 15.7 [place] g/dL [facility] Comment: Results confirmed by repeat mónica t Hematocrit 29.1 (L) 35.0 - 47.0 % [facility] [place] MCV 66 (L) 78 - 100 fl [facility] [place] MCH 19.0 (L) 26.5 - 33.0 pg [facility] [place] MCHC 28.9 (L) 31.5 - 36.5 g/dL [place] [facility] [place] Comment: Results confirmed by repeat mónica t RDW 16.7 (H) 10.0 - 15.0 % [facility] Platelet Count 321 150 - 450 10e9/L [facility] Specimen Anatomical Collection Method Collection Time Receive d Time (Source) Location / / Volume Laterality Blood specimen 04/26/2015 8:26 AM 016 8:27 (specimen) INSTALLER MOLDING AND TRIM AM INSTALLER MOLDING AND TRIM Gina Palumbo PA-C LAB - BLOOD ORDERABLES Performing Organization Address City/[facility]/ZIP Code Phon e Number [facility] [address] [place], [place] [address] LIPID REFLEX TO DIRECT LDL PANEL (04/26/2015 8:26 AM INSTALLER MOLDING AND TRIM) P athologist Signature Cholesterol 109 <200 mg/dL [facility] Triglycerides 70 <150 mg/dL [facility] Comment: Fasting specimen HDL Cholesterol 54 >49 mg/dL [place] CLINI CS [facility] LDL Cholesterol Calculated 41 <100 mg/dL FA [facility] Comment: Desirable: <100 mg/dl Non HDL Cholesterol 55 <130 mg/dL [facility] Specimen Anatomical Collection Method Collection Time Receive d Time (Source) Location / / Volume Laterality Blood specimen 04/26/2015 8:26 AM 016 8:27 (specimen) INSTALLER MOLDING AND TRIM AM INSTALLER MOLDING AND TRIM Gina Palumbo PA-C LAB - BLOOD ORDERABLES Performing Organization Address City/[facility]/ZIP Code Phon e Number [facility] [address] [place] [address] UA reflex to Microscopic and Culture (04/25/2015 12:44 PM INSTALLER MOLDING AND TRIM) [facility] gist Method Time Signature Color Urine Yellow [facility] [place] Appearance Urine Clear [place] [facility] Glucose Urine Negative NEG mg/dL [place] [facility] Bilirubin Urine Negative NEG [place] [facility] Ketones Urine Negative NEG mg/dL [facility] [place] Specific [place] 1.025 1.003 - [place] Urine 1.035 [facility] Blood Urine Negative NEG [facility] [place] pH Urine 5.5 5.0 - 7.0 [place] pH [facility] Protein Albumin Negative NEG mg/dL [place] Urine [facility] Urobilinogen 0.2 0.2 - 1.0 [place] Urine EU/dL [facility] Nitrite Urine Negative NEG [place] [facility] Leukocyte Negative NEG [place] Esterase Urine [facility] Source Midstream [place] Urine [facility] Specimen Anatomical Collection Method Collection Time Receive d Time (Source) Location / / Volume Laterality Urine specimen 04/25/2015 12:44 6 (specimen) PM INSTALLER MOLDING AND TRIM 12:45 PM INSTALLER MOLDING AND TRIM Gina Palumbo PA-C LAB - URINE ORDERABLES Performing Organization Address City/[facility]/ZIP Code Phon e Number [facility] [address] [place], [place] [address] documented in this encounter [...] documented as of this encounter Care Teams Cyber Security Architect Relationship Specialty Start Date End Date Gina Palumbo, PCP - General Physician Vehicle And Equipment Cleaner 5 09/03/21 PA-C [id number] [place] [id number] Gina Palumbo, PCP - Assigned PCP 01/12/15 05/11/18 PA-C [id number] [place], [place] [id number] Gina Palumbo, Physician Vehicle And Equipment Cleaner 01/31/15 PA-C [id number] [place] [id number] Gina Palumbo, Assigned PCP 01/12/15 PA-C [id number] [address] [id number] documented as of this encounter
--- OUTSIDE RECORDS SUMMARY | 2021-10-29 13:50 | XMS_ITS | Encounter Summary ---
:1985 Author Organization [place] Address [address] [place] [address]. [place] [address] Care Team Providers Name Role Phone Unavailable Primary Care Provider Unavailable Encounter Details Date Type Department Care Team Description 05/23/2005 Historic Results INTERFACED REPORT Aleksandra Carrizales MD [address] [address] (Wo rk) Social History Tobacco Use Types Packs/Day Years Used Date Never Assessed Sex Assigned at Date Recorded Not on file documented as of this encounter Plan of Treatment Upcoming Encounters Date Type Specialty Care Team Description 01/07/2022 Virtual Visit Endocrinology Natalya Jean MD [address] [place], [place] [address] (Wo rk) documented as of this encounter Procedures Procedure Name Priority Date/Time Associated Comments Diagnosis WET PREPARATION STAT 05/23/2005 9:45 AM Result s for this TOWER TRUCK DRIVER procedure are i n the results section. NEISSERIA GONORRHOEAE STAT 05/23/2005 9:45 AM Results for this PCR TOWER TRUCK DRIVER procedure are i n the results section. CHLAMYDIA TRACHOMATIS STAT 05/23/2005 9:45 AM Results for this PCR TOWER TRUCK DRIVER procedure are i n the results section. HCG QUALITATIVE URINE STAT 05/23/2005 9:20 AM Results for this TOWER TRUCK DRIVER procedure are i n the results section. ROUTINE UA WITH STAT 05/23/2005 9:20 AM Result s for this MICROSCOPIC TOWER TRUCK DRIVER procedure are i n the results section. HEMOGRAM DIFFERENTIAL STAT 05/23/2005 7:35 AM Results for this AND PLATELET TOWER TRUCK DRIVER procedure are i n the results section. BASIC METABOLIC PANEL STAT 05/23/2005 7:35 AM Results for this TOWER TRUCK DRIVER procedure are i n the results section. documented in this encounter Results Chlamydia trachomatis PCR (05/23/2005 9:45 AM TOWER TRUCK DRIVER) Component Value Ref Test Analysis Performed At [facility] Range Method Time Signature Specimen Cervical MISYS Description Chlamydia Negative for C. MISYS Trachomatis PCR trachomatis rRNA by pearl hand mediated amplification. Comment: A negative result by pearl hand medi ated amplification does not preclude the presence of C. trachomatis infection be cause results are dependent on proper and adequate collection, absence of inh ibitors, and sufficient rRNA to be detected. Specimen Anatomical Collection Method Collection Time Receive d Time (Source) Location / / Volume Laterality 05/23/2005 9:45 AM 6 TOWER TRUCK DRIVER 10:02 AM TOWER TRUCK DRIVER [facility] - MICRO GENERAL ORDERABL ES Performing Organization Address [facility]/ZIP Code Phon e Number MISYS Neisseria gonorrhoeae PCR (05/23/2005 9:45 AM TOWER TRUCK DRIVER) [facility] Method Time Signature Specimen Cervical MISYS Descrip N Gonorrhea Negative for N. MISYS PCR gonorrhoeae rRNA by pearl hand mediated amplification. Comment: A negative result by pearl hand medi ated amplification does not preclude the presence of N. gonorrhoeae infection be cause results are dependent on proper and adequate collection, absence of inh ibitors, and sufficient rRNA to be detected. Specimen Anatomical Collection Method Collection Time Receive d Time (Source) Location / / Volume Laterality 05/23/2005 9:45 AM 6 TOWER TRUCK DRIVER 10:02 AM TOWER TRUCK DRIVER [facility] - MICRO GENERAL ORDERABL ES Performing Organization Address City/State/ZIP Code Phon e Number MISYS Wet prep (05/23/2005 9:45 AM TOWER TRUCK DRIVER) [facility] Method Time Signature Specimen Vagina MISYS Description Micro Report FINAL MISYS Status [id number] Wet Prep Few PMN'S MISYS seen Comment: No Trichomonas seen No yeast seen No clue cells seen Specimen Anatomical Collection Method Collection Time Receive d Time (Source) Location / / Volume Laterality 05/23/2005 9:45 AM 6 TOWER TRUCK DRIVER 10:02 AM TOWER TRUCK DRIVER Pediatric[facility] - MICRO GENERAL ORDERABL ES Performing Organization Address City/State/ZIP Code Phon e Number MISYS (ABNORMAL) Routine UA with microscopic (05/23/2005 9:20 AM TOWER TRUCK DRIVER) [facility] gist Method Time Signature Source Midstream MISYS Urine Color Urine Yellow MISYS Appearance Urine Clear MISYS Glucose Urine Negative NEG mg/dL MISYS Bilirubin Urine Negative NEG MISYS Ketones Urine Negative NEG mg/dL MISYS Specific Ramer 1.016 1.003 - MISYS Urine 1.035 Blood [...] Volume Laterality 05/23/2005 9:20 AM 6 7:48 TOWER TRUCK DRIVER AM TOWER TRUCK DRIVER [facility] - URINE ORDERABLES Performing Organization Address [facility] Phon e Number MISYS HCG qualitative urine (05/23/2005 9:20 AM TOWER TRUCK DRIVER) athologist Signature HCG Qual Urine Negative NEG MISYS Specimen Anatomical Collection Method Collection Time Receive d Time (Source) Location / / Volume Laterality 05/23/2005 9:20 AM 6 7:48 TOWER TRUCK DRIVER AM TOWER TRUCK DRIVER [facility] - URINE ORDERABLES Performing Organization Address [facility] Phon e Number MISYS (ABNORMAL) Hemogram differential and platelet (05/23/2005 7:35 AM TOWER TRUCK DRIVER) [facility] gist Method Time Signature MCV 84 77 - [...] Volume Laterality 05/23/2005 7:35 AM 6 7:48 TOWER TRUCK DRIVER AM TOWER TRUCK DRIVER [facility] - BLOOD ORDERABLES Performing Organization Address City/State/ZIP Code Phon e Number MISYS Basic metabolic panel (05/23/2005 7:35 AM TOWER TRUCK DRIVER) P athologist Signature Sodium 141 133 - [...] Volume Laterality 05/23/2005 7:35 AM 6 7:48 TOWER TRUCK DRIVER AM TOWER TRUCK DRIVER [facility] - BLOOD ORDERABLES Performing Organization Address City/State/ZIP Code Phon e Number MISYS documented in this encounter Visit Diagnoses Not on filedocumented in this encounter
--- OUTSIDE RECORDS SUMMARY | 2021-10-29 13:50 | XMS_ITS | Encounter Summary ---
:1985 Author Organization [facility] Address [address] [place] [address] Care Team Providers Name Role Phone Unavailable Primary Care Provider Unavailable Encounter Details Date Type Department Care Team Description 05/23/2005 Results [facility] Results EMERGENCY PHYSI [facility] [address] [place], [place] [id number] (Wo rk) Social History Tobacco Use Types Packs/Day Years Used Date Never Assessed Sex Assigned at Date Recorded Not on file documented as of this encounter Plan of Treatment Upcoming Encounters Date Type Specialty Care Team Description 01/07/2022 Virtual Visit Endocrinology Natalya Jean MD [address] [place] [address] (Wo rk) documented as of this encounter Procedures Procedure Name Priority Date/Time Associated Diagnosis Comme [facility] US PELVIC Routine 05/23/2005 10:02 AM Results for this NON-OB, COMPLETE [facility] procedure a re in the results section. documented in this encounter Results SONO PELVIS COMPLETE (05/23/2005 10:02 AM [facility]) Specimen (Source) Anatomical Collection Method Collection Time Re ceived Time Location / / Volume Laterality 05/23/2005 10:02 AM [facility] Impressions RADIOLOGY RESULTS - 05/26/2005 10:39 AM [facility] PELVIC ULTRASOUND WITH TRANSVAGINAL - ?? TECHNIQUE: [...]
--- OUTSIDE RECORDS SUMMARY | 2021-10-29 13:50 | XMS_ITS | Encounter Summary ---
:1985 Author Organization [place] Address [address] [place] [address]. [place] [address] Care Team Providers Name Role Phone Gina Bautista PA-C Primary Care Provider [phone] Gina Bautista PA-C Unavailable [phone] Gina Bautista PA-C Unavailable [phone] Gina Bautista PA-C Unavailable [phone] Reason for Visit Reason Comments URI Encounter Details Date Type Department Care Team Description 06/25/2015 Office Visit [facility] [place] Serum, Ro Viral URI (Primary Dx); Yony Yarbrough MD Acute pharyngitis, unspecified etiology [address] [facility] [place] [address] [place] [phone] [address] [place], [place] [address] Social History Tobacco Use [...] list, Allergies, and Medical/Social/Surgical histories reviewed in [facility] andupdated as appropriate. OBJECTIVE: BP 96/56 [...] Follow up with Provider - alexis Salgado [facility] YONY documented in this encounter Nursing Notes [...] [address] [place] [address] (Wo rk) documented as of this encounter [...] Component Value Ref [facility] Range Method Time Signature Specimen Throat [facility] YONY Culture Micro No Beta [place] Streptococcus [facility] isolated YONY Micro Report FINAL 06/27/2015 [facility] YONY Specimen Anatomical Collection Method Collection Time Receive d Time (Source) Location / / Volume Laterality 06/25/2015 5:20 PM 6 5:25 CDT PM CDT Ro Salgado MD LAB - MICRO GENERAL ORDERABL ES Performing Organization Address City/State/ZIP Code Phon e Number [facility]3] [address] [facility] [place] [address] Strep, Rapid Screen (06/25/2015 5:20 PM CDT) Component Value Ref Test Analysis Performed At [facility] Range Method Time Signature Specimen Throat [facility] YONY Rapid Strep A NEGATIVE: No Group A strepto coccal antigen detected by immunoassay, await [place] Screen culture report. CLINICS YONY Micro Report FINAL 06/25/2015 [place] Status CLINICS YONY Specimen Anatomical Collection Method Collection Time Receive d Time (Source) Location / / Volume Laterality Specimen from 06/25/2015 5:20 PM 06/25/19 16 5:25 throat CDT PM CDT (specimen) Ro Salgado MD LAB - MICRO GENERAL ORDERABL ES Performing Organization Address City/State/ZIP Code Phon e Number [facility] YONY [address] [facility] [place] [address] documented in this encounter Visit Diagnoses Diagnosis Viral URI - Primary Acute upper respiratory infections of un specified site Acute pharyngitis, unspecified etiology documented in this encounter Additional Health Concerns Assessment Noted Time PHQ-9 Depression Total Score: 16 04/26/2015 8:54 AM CS T documented as of this encounter Care Teams Poly Packer And Heat Sealer Relationship Specialty Start Date End Date Gina Bautista, PCP - General Physician Mill Roll Operator 5 09/03/21 PA-C [address] [address] [place], [place] [address] Gina Bautista, PCP - Assigned PCP 01/12/15 05/11/18 PA-C 10017 [place] [address] Gina Bautista, Physician Mill Roll Operator 01/31/15 PALiuC [address] [place] [address] Gina Bautista, Assigned PCP 01/12/15 PA-C 19890 [place] [address] documented as of this encounter
--- OUTSIDE RECORDS SUMMARY | 2021-10-29 13:50 | XMS_ITS | Encounter Summary ---
:1985 Author Organization [facility] Address [address] [place] [address]. [place] [address] Care Team Providers Name Role Phone Gina Bautista PA-C Primary Care Provider [phone] Gina Bautista PA-C Unavailable [phone] Gina Bautista PA-C Unavailable [phone] Gina Bautista PA-C Unavailable [phone] Reason for Visit Reason Comments Sinus Problem Encounter Details Date Type Department Care Team Description 07/27/2015 Office Visit [facility] Gina Bautista Acute recurrent Clinic Lucia Vance PA-C maxillary sinusitis [address] (Primary Dx) [place] [address] [phone] Social History Tobacco Use Types Packs/Day Years [...] She has been treated twice by in [place] with Amoxicillin without relief No fever, very [...] the plan of care. Gina Bautista PA-C [facility] documented in this encounter Nursing Notes [...] phone number for results from this visit [phone] OK to leave message Marianne Tony CMA (AAMA) 07/27/2015 8:58 AM documented in this encounter Plan of Treatment Upcoming Encounters Date Type Specialty Care Team Description 01/07/2022 Virtual Visit Endocrinology Natalya Jean MD [address] [place] [address] (Wo rk) documented as of this encounter Visit Diagnoses Diagnosis Acute recurrent maxillary sinusitis - Pr imary Acute maxillary sinusitis documented in this encounter Additional Health Concerns Assessment Noted Time PHQ-9 Depression Total Score: 16 04/26/2015 8:54 AM CS T documented as of this encounter Care Teams Feeder Worker Power Unit Operator Relationship Specialty Start Date End Date Gina Bautista, PCP - General Physician Used Car Lot Attendant 5 09/03/21 PA-C [address] [place] [address] Gina Bautista, PCP - Assigned PCP 01/12/15 05/11/18 PA-C 12294 [place] [address] Gina Bautista, Physician Used Car Lot Attendant 01/31/15 PA-C 12724 [place] [address] Gina Bautista, Assigned PCP 01/12/15 PA-C 04235 [place] [address] documented as of this encounter
--- OUTSIDE RECORDS SUMMARY | 2021-10-29 13:50 | XMS_ITS | Encounter Summary ---
:1985 Author Organization [place] Address [address] [place] [address]. [place] [address] Care Team Providers Name Role Phone Gina Bautista PA-C Primary Care Provider [phone] Gina Bautista PA-C Unavailable [phone] Gina Bautista PA-C Unavailable [phone] Gina Bautista PA-C Unavailable [phone] Reason for Visit Reason Onset Date Comments Patient Request for Note/Letter 04/26/2015 Encounter Details Date Type Department Care Team Description 04/26/2015 Telephone [facility] Gina Bautista Request for Clinic Jigna Vance PA-C Note/Letter [address] [address] [address] [place] [facility] [place] [address] [phone] Social History Tobacco Use Types Packs/Day Years Used Date Never Smoker Smokeless Tobacco: Never Used Alcohol Use Standard Drinks/Week Comments Yes 0 (1 standard drink = 0.6 oz pure alcoho l) Sex Assigned at Date Recorded Not on file documented as of this encounter Miscellaneous Notes Telephone Encounter - Gina Bautista PA-C - 04/27/2015 8:14 AM V BELT INSPECTOR Note for patient provided for missed work, given to Meg. Gina Bautista PA-C V BELT INSPECTOR Telephone Encounter - Irma Boggs, RN - [...] pcp in office Thursday. Irma Boggs RN V BELT INSPECTOR documented in this encounter Plan of Treatment Upcoming Encounters Date Type Specialty Care Team Description 01/07/2022 Virtual Visit Endocrinology Natalya Jean MD [address] [facility] [address] [place], [place] [address] (Wo rk) documented as of this encounter Visit Diagnoses Not on filedocumented in this encounter Additional Health Concerns Assessment Noted Time PHQ-9 Depression Total Score: 16 04/26/2015 8:54 AM CS T documented as of this encounter Care Teams Bobcat Operator Relationship Specialty Start Date End Date Gina Bautista, PCP - General Physician Drug Regulatory Affairs Specialist 5 09/03/21 PALiuC [address] [place] [address] Gina Bautista, PCP - Assigned PCP 01/12/15 05/11/18 [place] [address] [place] [address] Gina Bautista, Physician Drug Regulatory Affairs Specialist 01/31/15 [place] [address] [place] [address] Gina Bautista, Assigned PCP 01/12/15 [place] [address] [address] [place], [place] [address] documented as of this encounter
--- OUTSIDE RECORDS SUMMARY | 2021-10-29 13:50 | XMS_ITS | Encounter Summary ---
:1985 Author Organization [facility] Address [address] [place] [address]. [place] [address] Care Team Providers Name Role Phone Gina Bautista PA-C Primary Care Provider [phone] Gina Bautista PA-C Unavailable [phone] Gina Bautista PA-C Unavailable [phone] Gina Bautista PA-C Unavailable [phone] Reason for Referral - Closed Specialty Diagnoses / Procedures Referred By Contact Refer red To Contact Diagnoses S/P gastric bypass Gina Bautista, Procedures VITAMIN B12 INJ /1000MCG [place] [address] [place] [address] Referral ID Status Reason Start Date Expiration Date Visits Requ ested Visits Authorized [id number] Closed 12/29/2016 12/29/2017 1 1 Reason for Visit Reason Comments Imm/Inj starting B 12 injections Encounter Details Date Type Department Care Team Description 12/29/2016 Allied Health/Nurse [facility] Imm /Inj (starting B 12 Visit Clinic [place] injections ) [address] [place] [id number] Social History Tobacco Use Types Packs/Day Years [...] [address] [place], [place] [address] (Wo rk) documented as of this encounter Visit Diagnoses Diagnosis S/P gastric bypass - Primary Bariatric surgery status documented in this encounter Additional Health Concerns Assessment Noted Time PHQ-9 Depression Total Score: 7 12/19/2016 3:37 PM CDT documented as of this encounter Care Teams Hide Tanner Relationship Specialty Start Date End Date Gina Bautista, PCP - General Physician Bench Assembler Battery 5 09/03/21 PA-C 117[address] [place] [address] Gina Bautista, PCP - Assigned PCP 01/12/15 05/11/18 PA-C 812[address] [place] [address] Gina Bautista, Physician Bench Assembler Battery 01/31/15 PA-C 35083 [place] [address] Gina Bautista, Assigned PCP 01/12/15 PA-C 57111 [place] [address] documented as of this encounter
--- OUTSIDE RECORDS SUMMARY | 2021-10-29 13:50 | XMS_ITS | Encounter Summary ---
:1985 Author Organization [place] Address [address] [place] [address]. [place] [address] Care Team Providers Name Role Phone Gina Bautista PA-C Primary Care Provider [phone] Oestrfrances, Gina Vance PA-C Unavailable [phone] Oestrfrances, Gina Vance PA-C Unavailable [phone] Oestrfrances, Gina Vance PA-C Unavailable [phone] Reason for Visit Reason Comments IUD Encounter Details Date Type Department Care Team Description 01/27/2017 Office Visit [facility] Nadine Monreal Encou nter for IUD removal (Primary Dx); [facility] Encounter for preconception consultation [place] [address] [place] [address] [facility] [address] [place], [place] (Work) [address] [phone] Social History Tobacco Use Types Packs/Day Years Used Date Never Smoker Smokeless Tobacco: Never Used Alcohol Use Standard Drinks/Week Comments Yes 0 (1 standard drink = 0.6 oz pure alcoho l) Sex Assigned at Date Recorded Not on file documented as of this encounter Last Filed Vital Signs Vital Sign Reading Time Taken Comments Blood Pressure 100/60 01/27/2017 1:05 PM EQUIPMENT LEAD Pulse - - Temperature - - Respiratory Rate - - Oxygen Saturation - - Inhaled Oxygen Concentration - - Weight 79.3 kg (174 lb 12.8 oz) 01/27/2017 1:05 PM EQUIPMENT LEAD Height - - Body Mass Index 28.21 [...] muscle every 30 days vitamin D (ERGOCALCIFEROL) 08843 UNIT capsule Take 1 capsule (50,000 Units) [...] with hematology as needed. Nadine Monreal MD [facility] PMENT LEAD documented in this encounter Nursing Notes Nataliia [...] 12.8 oz (79.3 kg). Medication Reconciliation: complete PMENT LEAD documented in this encounter Plan of Treatment Upcoming Encounters Date Type Specialty Care Team Description 01/07/2022 Virtual Visit Endocrinology Natalya Jean MD [address] [place] [address] (Wo rk) documented as of this encounter Procedures Procedure Name Priority Date/Time Associated Diagnosis Comme nts HC REMOVE INTRAUTERINE Routine 01/27/2017 1:33 PM Encounter fo r IUD DEVICE EQUIPMENT LEAD removal documented in this encounter Visit Diagnoses Diagnosis Encounter for IUD removal - Primary Encounter for removal of intrauterine co ntraceptive device Encounter for preconception consultation documented in this encounter Additional Health Concerns Assessment Noted Time PHQ-9 Depression Total Score: 7 12/19/2016 3:37 PM CDT documented as of this encounter Care Teams Whipper Relationship Specialty Start Date End Date Gina Bautista, PCP - General Physician Stone Product Fabricator 5 09/03/21 PALiuC [address] [place] [address] Gina Bautista, PCP - Assigned PCP 01/12/15 05/11/18 PA-C 05080 [address] [place], [place] [address] Gian Bautista, Physician Stone Product Fabricator 01/31/15 PA-C 02766 [place] [address] Gina Bautista, Assigned PCP 01/12/15 PA-C 30231 [place] [address] documented as of this encounter
--- OUTSIDE RECORDS SUMMARY | 2021-10-29 13:50 | XMS_ITS | Encounter Summary ---
:1985 Author Organization [facility] Address [address] [place] [address]. [place] [address] Care Team Providers Name Role Phone Gina Bautista PA-C Primary Care Provider [phone] Gina Bautista PA-C Unavailable [phone] Gina Bautista PA-C Unavailable [phone] Gina Bautista PA-C Unavailable [phone] Reason for Visit Mental Health Outpatient (Routine) - Closed Specialty Diagnoses / Procedures Referred By Contact Refer red To Contact Gina Bautista [facility] JANETTE BERNAL [facility] [id number] [place] [id number] [place] [address] [place] [address] Phone: Fax: Referral ID Status Reason Start Date Expiration Date Visits Requ ested Visits Authorized [facility] Closed 01/14/2017 01/14/2018 1 52 Encounter Details Date Type Department Care Team Description 02/06/2017 Office Visit [facility] Lisa Lopez LP Anxiety (Primary Dx) Services [place] [address] [facility] [address] [place] [address] Social History Tobacco Use [...] NAME: Carley Hernandez : 1985 ACCT. NUMBER: [id number] DATE OF SERVICE: 02/06/17 Identifying Information: Client is a 31 year old, , female. Client was referred for counseling by self. 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 Client attended the session alone. Client's Statement [...] History: Client reported she grew up in [place], [place]. They were the second born of [...] concentration. There are no ethnic, cultural or samaritan factors that may be relevant for therapy. Client identified her preferred language to be Estonian. Client reported she does not need the assistance of an educational interpreter or other support involved in therapy. Modifications [...] an exam with PCP. The clienthas a [facility] Primary Care Provider, who is named Gina [...] muscle every30 days ??? vitamin D (ERGOCALCIFEROL) 00028 UNIT capsule Take 1 capsule (50,000 Units) [...] the following activities. For each question, please kaibab only one response. S1 Standing for long [...] Plan: The client reports no currently identified samaritan, ethnic or cultural issues relevant to therapy. Cat Sitter services are not indicated. Modifications to assist [...] NA. Client will have access to their [facility]' medical record. Lisa Lopez LP February 06, 2017 NG CONTRACTOR documented in this encounter Plan of Treatment Upcoming Encounters Date Type Specialty Care Team Description 01/07/2022 Virtual Visit Endocrinology Natalya Jean MD [address] [place] [address] (Wo rk) documented as of this encounter Visit Diagnoses Diagnosis Anxiety - Primary Anxiety state, unspecified documented in this encounter Additional Health Concerns Assessment Noted Time PHQ-9 Depression Total Score: 7 12/19/2016 3:37 PM CDT documented as of this encounter Care Teams Pressure Welder Relationship Specialty Start Date End Date Gina Bautista, PCP - General Physician Travel Writer 5 09/03/21 [place] [address] [place] [address] Gina Bautista, PCP - Assigned PCP 01/12/15 05/11/18 PA-C 59120 [place] [address] Gina Bautista, Physician Travel Writer 01/31/15 PA-C [address]5983 [place] [address] Gina Bautista, Assigned PCP 01/12/15 PA-C 88250 [place] [address] documented as of this encounter
--- NOTE | 2021-10-29 14:00 | CRLHL7_ITS ---
For Patients: As a result of the Century Cures Act, medical imaging exams and procedure reports are released immediately into your electronic medical record. You may view this report before your referring provider. If you have questions, please contact your health care provider. INDICATION: HX OF PRE-TERM LABOR COMPARISON: 10/14/2021 TECHNIQUE: Transvaginal ultrasound of the cervix performed. FINDINGS: The cervix is closed without funneling and measures 4.1 cm. Placenta is posterior. heart rate 150 beats per minute. IMPRESSION: Closed cervix measuring 4.1 cm. Dictated by Ethan Bah MD @ 10/29/2021 2:51:22 PM (Electronically Signed)
== END 2021-10-29 13:48 | disposition home or self-care (01) ==
LOC: US 13:48
PROVIDERS: PCP Internal Medicine; Visit Provider Obstetrics & Gynecology
DX: Z87.51 Personal history of pre-term labor (principal)
CPT/HCPCS: 76817

== ENCOUNTER 2021-11-12 14:00 | Outpatient (CLI) | payer BC, SELFPAY ==
--- NOTE | 2021-11-12 14:00 | CRLHL7_ITS ---
For Patients: As a result of the Century Cures Act, medical imaging exams and procedure reports are released immediately into your electronic medical record. You may view this report before your referring provider. If you have questions, please contact your health care provider. INDICATION: Evaluate anatomy. COMPARISON: 10/29/2021 TECHNIQUE: Real time szymanski scale imaging of the fetus was performed as well as color Doppler analysis of the umbilical vessels. FINDINGS: Sonographic imaging demonstrates a single living intrauterine gestation. Fetus demonstrates a regular cardiac rate of 154 beats per minute. Fetus has a variable position. The placenta lies posteriorly without evidence of placenta previa. The edge of the placenta is 3.9 cm from the internal cervical os. Placental ron is present measuring 1.7 x 1.0 cm. Amniotic fluid volume appears normal. Single deepest vertical pocket: 5.0 cm. The cervix is closed and measures 3.2 cm in length. The composite ultrasound gestational age is calculated at 21 weeks 1 day with an estimated sonographic due date of 03/24/2022. The estimated weight is 419 grams which lies at the 94th %. The following biometric measurements were obtained: Biparietal diameter: 5.0 cm/21 weeks 1 day 83rd% Head circumference: 18.3 cm/20 weeks 5 days 60th% Abdominal circumference: 17.5 cm/22 weeks 3 days 96th% Femur length: 3.3 cm/20 weeks 2 days 41st% The HC/AC ratio measures: 1.04 range (1.06-1.25) On anatomic survey, there is a normal appearance of the cerebral ventricles, cavum septi pellucidi, cisterna magna and cerebellum. The nose, lips, and facial profile appear normal. The cervical, thoracic and lumbar spine are not well visualized due to position. There is a normal four-chamber heart view and the left and right ventricular outflow tracts appear normal. The diaphragm and stomach appear normal. The kidneys and bladder also appear normal. There is a normal three-vessel cord and cord insertion site. The four extremities appear normal. IMPRESSION: Incomplete visualization of the spine due to position. The remainder of the anatomic survey is normal. Short-term follow-up recommended. The cervix was evaluated with transabdominal and transvaginal technique. The cervix is closed without funneling and measures 3.2 cm. Normal amniotic fluid. Sonographic gestational age 21 weeks 1 day with sonographic due date 03/24/2022. Sonographic age 6 days ahead of the clinical age. Estimated weight 94th percentile. Abdominal circumference 96th percentile. Dictated by Ethan Bah MD @ 11/12/2021 4:01:14 PM (Electronically Signed)
== END 2021-11-12 14:01 | disposition home or self-care (01) ==
PROVIDERS: PCP Internal Medicine; Visit Provider Obstetrics & Gynecology
DX: O09.212 Supervision of pregnancy with history of pre-term labor, second trimester (principal); Z3A.21 21 weeks gestation of pregnancy
CPT/HCPCS: 76805; 76817

== ENCOUNTER 2021-11-12 15:25 | Outpatient (CLI) | payer BC, SELFPAY ==
--- OUTSIDE RECORDS SUMMARY | 2021-11-12 13:57 | XMS_ITS | Encounter Summary ---
:1985 Author Organization [facility] Address [address] [place] [address] Care Team Providers Name Role Phone Gina Bautista PA-C Unavailable [phone] Vidya Espinal APRN, CNM Unavailable [phone] [facility] Unavailable Marissa Jean MD Unavailable Violette BoldenM Primary Care Provider Reason for Visit Reason Onset Date Comments Appointment 09/04/2021 Encounter Details Date Type Department Care Team Description 09/04/2021 Telephone [facility] Natalya Jean, Lizzeth Israel MD [address] [facility] [address] [place] [address] [place] [address] (Wo rk) Social History Tobacco [...] CDT [facility], relayed message to clinic scheduler she will relay this message to the team/person who called. Telephone Encounter - Marissa Jean MD - 09/04/2021 10:29 AM CDT NEW PT TO ME. I am very sorry- but at this time schedule is booked out and I do not have any sooner appointments. Patient my wish to request endo consult at another locations or [facility] Endocrinology. Let me know if you have [...] [address] [place] [address] (Wo rk) documented as of this encounter Visit Diagnoses Not on filedocumented in this encounter Additional Health Concerns Assessment Noted Time PHQ-9 Depression Total Score: 10 05/09/2017 8:01 AM CS T documented as of this encounter Care Teams Diet Clerk Relationship Specialty Start Date End Date Violette Bolden CNM PCP - General 09/04/21 [facility] [address] [place] [address] Gina Bautista, Physician Data Collection Associate 01/31/15 [facility] [address] [place] [address] Vidya Espinal APRN CNM Conductor/Brakeman 08/21/[address] [place] [id number] [facility]21 [facility] [address] [place] [address] Marissa Jean MD Hospitalist Endocrinology, 09/04/21 [address] Diabetes, and [address] Metabolism [place], [place] [address] documented as of this encounter
--- OUTSIDE RECORDS SUMMARY | 2021-11-12 13:57 | XMS_ITS | Encounter Summary ---
:1985 Author Organization [facility] Address [address] [place] [address]. [place] [address] Care Team Providers Name Role Phone Gina Bautista PA-C Primary Care Provider [phone] Gina Bautista PA-C Unavailable [phone] Gina Bautista PA-C Unavailable [phone] Gina Bautista PA-C Unavailable [phone] Reason for Visit Reason Onset Date Comments Patient Request for Note/Letter 04/26/2015 Encounter Details Date Type Department Care Team Description 04/26/[address] [facility] Gina Bautista Request for Clinic Jigna Vance PA-C Note/Letter [id number] [address] [address] [facility] [address] [address]68 [address] [phone] Social History Tobacco Use Types Packs/Day Years Used Date Never Smoker Smokeless Tobacco: Never Used Alcohol Use Standard Drinks/Week Comments Yes 0 (1 standard drink = 0.6 oz pure alcoho l) Sex Assigned at Date Recorded Not on file documented as of this encounter Miscellaneous Notes Telephone Encounter - Gina Bautista PA-C - 04/27/2015 8:14 AM SCHOOL VOCATIONAL EDUCATOR Note for patient provided for missed work, given to Meg. Gina Bautista PA-C OL VOCATIONAL EDUCATOR Telephone Encounter - Irma Boggs, RN - [...] pcp in office Thursday. Irma Boggs RN OL VOCATIONAL EDUCATOR documented in this encounter Plan of Treatment Upcoming Encounters Date Type Specialty Care Team Description 01/07/2022 Virtual Visit Endocrinology Natalya Jean MD [address] [facility] [address] [place], [place] [address] (Wo rk) documented as of this encounter Visit Diagnoses Not on filedocumented in this encounter Additional Health Concerns Assessment Noted Time PHQ-9 Depression Total Score: 16 04/26/2015 8:54 AM CS T documented as of this encounter Care Teams Lead Pharmacy Technician Relationship Specialty Start Date End Date Gina Bautista, PCP - General Physician Modeling Agent 5 09/03/21 [facility] [address] [place] [address] Gina Bautista, PCP - Assigned PCP 01/12/15 05/11/18 [facility] [address] [place] [address] Gina Bautista, Physician Modeling Agent 01/31/15 [facility] [address] [place] [address] Gina Bautista, Assigned PCP 01/12/15 [facility] [address] [address] [place], [place] [address] documented as of this encounter
--- OUTSIDE RECORDS SUMMARY | 2021-11-12 13:57 | XMS_ITS | Encounter Summary ---
:1985 Author Organization [facility] Address [address] [place] [address]. 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 TSH WITH FREE T4 Routine 04/10/2017 2:35 PM Hypothyroidism due to Results for this REFLEX PRODUCT MANAGEMENT SPECIALIST acquired atrophy of procedur e are in thyroid the results section. T4 FREE Routine 04/10/2017 2:35 PM Vitamin D deficiency R esults for this PRODUCT MANAGEMENT SPECIALIST procedure are i n the results section. documented in this encounter Results T4 free (04/10/2017 2:35 PM PRODUCT MANAGEMENT SPECIALIST) athologist Signature T4 Free 0.94 0.76 - 1.46 04/12/2017 [facility] ng/dL 1:[address] [facility] Specimen Anatomical Collection Method Collection Time Receive d Time (Source) Location / / Volume Laterality 04/10/2017 2:35 PM 8 2:36 PRODUCT MANAGEMENT SPECIALIST PM PRODUCT MANAGEMENT SPECIALIST Gina Bautista PA-C LAB - BLOOD ORDERABLES Performing Organization Address City/[facility]/ZIP Code Phon e Number [facility] [address] [place] [phone] (ABNORMAL) TSH with free T4 reflex FUTURE 2mo (04/10/2017 2:35 PM PRODUCT MANAGEMENT SPECIALIST) athologist [facility] TSH 10.56 (H) 0.40 - 04/12/2017 [facility] 4.00 mU/L 1:[address] [facility] Specimen Anatomical Collection Method Collection Time Receive d Time (Source) Location / / Volume Laterality Blood specimen 04/10/2017 2:35 PM 018 2:36 (specimen) PRODUCT MANAGEMENT SPECIALIST PM PRODUCT MANAGEMENT SPECIALIST Gina Bautista PA-C LAB - BLOOD ORDERABLES Performing Organization Address City/[facility]/ZIP Code Phon e Number [facility] [address] [place] [address] (ABNORMAL) Vitamin D Deficiency (04/10/2017 2:35 PM PRODUCT MANAGEMENT SPECIALIST) athologist Signature Vitamin D 13 (L) 20 - 75 04/11/2017 [facility] Deficiency ug/L 11:46 AM PRODUCT MANAGEMENT SPECIALIST [place] [facility] Comment: Season, race, dietary intake, and treatm ent affect the concentration of 80-bkdvsmo-Nzdxidu D. 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 documented in this encounter Additional Health Concerns Assessment Noted Time PHQ-9 Depression Total Score: 9 02/19/2017 2:07 PM PRODUCT MANAGEMENT SPECIALIST documented as of this encounter Care Teams Allopathic Doctor Relationship Specialty Start Date End Date Gina Bautista, PCP - General Physician Employment Evaluator/Case Manager 5 09/03/21 PA-C [address] [place] [address] Gina Bautista, PCP - Assigned PCP 01/12/15 05/11/18 PA-C [address] [place] [address] Gina Bautista, Physician Employment Evaluator/Case Manager 01/31/15 PA-C [address] [place] [address] Gina Bautista, Assigned PCP 01/12/15 PA-C [address] [place] [address] documented as of this encounter
--- OUTSIDE RECORDS SUMMARY | 2021-11-12 13:57 | XMS_ITS | Clinical Summary ---
:1985 Author Organization [facility] Address [address] [place] [address] Care Team Providers Name Role Phone Gina Bautista PA-C Unavailable [phone] Vidya Espinal APRN CNM Unavailable [phone] [facility] Unavailable Marissa Jean MD Unavailable Violette Bolden [...] symptoms greater than 10 days fluticasone (FLONASE) [place] 1-2 sprays 1 Bottle 11 02/22/2017 Active 50 MCG/ACT into both nostrils sprayIndications: daily Acute sinusitis with symptoms greater than 10 days vitamin D Take 1 capsule 12 capsule 0 04/14/2017 Act [place] (ERGOCALCIFEROL) (50,000 [place]) [place] [address] UNIT mouth once a week capsuleIndications: Lab [...] Care Team Description 09/04/2021 Telephone Endocrinology Ted, Lizzeth Ann MD 2021 Medical Correspondence Scan, ENDOC RINOLOGY REFERRAL Non-Provider [facility] 2021 Transcribe Orders Provider, Kaylan fernandez Generic External (Primary Dx ) Data from Last 3 Months Immunizations Name Administration [...] Comments Blood Pressure 108/62 02/22/2017 11:59 AM ASSISTANT PLANT MANAGER Pulse 61 02/22/2017 11:59 AM ASSISTANT PLANT MANAGER Temperature 36.7 ??C (98.1 ??F) 02/22/2017 11:59 AM ASSISTANT PLANT MANAGER Respiratory Rate 15 12/19/2016 2:53 PM CDT Oxygen Saturation 100% 02/22/2017 11:59 AM ASSISTANT PLANT MANAGER Inhaled Oxygen Concentration - - Weight 79.3 kg (174 lb 12.8 oz) 01/27/2017 1:05 PM ASSISTANT PLANT MANAGER Height 167.6 cm (5' 6) 12/19/2016 2:53 PM CDT Body Mass Index 28.21 12/19/2016 2:53 PM CDT Plan of Treatment Upcoming Encounters Date Type Specialty Care Team Description 01/07/2022 Virtual Visit Endocrinology Natalya Jean MD [address] [facility] [address] [place] [address] (Wo rk) Health Maintenance Due Date Last [...] to co mplete this topic 66 Years) Insurance Payer Benefit Plan Subscriber ID Effective Phone Address Typ e / Group Dates MEDICA MEDICA CHOICE [id number] 2016-Pres [phone] [place] [address] BCBS [place] OF [place] [id number] 2021-Pres [phone] [address] Indemnity [phone] [place] [address] [facility] [id number] 2016-Pres [address] PPO BEHAVIORAL ent [id number] [place] [address] Care Teams Physician Credentialing Specialist Relationship Specialty Start Date End Date Violette Bolden CNM PCP - General 09/04/21 [facility] [address] [place] [address] Gina Bautista, Physician Felled Seam Operator Chainstitch 01/31/15 PA-C [address] [place] [address] Vidya Espinal APRN CNM Hair Boiler 08/21/[address] [id number] Clinic, [facility] 08/21/21 [facility] [address] [place] [address] Marissa Jean MD Hospitalist Endocrinology, 09/04/21 [address] Diabetes, and [address] [place] [address]
--- OUTSIDE RECORDS SUMMARY | 2021-11-12 13:57 | XMS_ITS | Encounter Summary ---
:1985 Author Organization [facility] Address [address] [place] [address]. [place] [address] Care Team Providers Name Role Phone Gina Bautista PA-C Primary Care Provider [phone] Gina Bautista PA-C Unavailable [phone] Gina Bautista PA-C Unavailable [phone] Gina Bautista PA-C Unavailable [phone] Reason for Visit Reason Comments Urgent Care URI Colds x3-4- facial pain and pressure, sinus pressure, MAK, achy lymphnofe, L ear pain- unable to hear f rom L ear. Encounter Details Date Type Department Care Team Description 02/22/2017 Office Visit [facility] Johny Puga, Acute sinusitis with Urgent Care Ferny gage [place] [address] [address] [address] [address] Jason 10 days (Primary Dx) [place] [address] [phone] Social History Tobacco Use Types Packs/Day Years Used Date Never Smoker Smokeless Tobacco: Never Used Alcohol Use Standard Drinks/Week Comments Yes 0 (1 standard drink = 0.6 oz pure alcoho l) Sex Assigned at Date Recorded Not on file documented as of this encounter Last Filed Vital Signs Vital Sign Reading Time Taken Comments Blood Pressure 108/62 02/22/2017 11:59 AM TEN PIN BOWLING CENTRE MANAGER Pulse 61 02/22/2017 11:59 AM TEN PIN BOWLING CENTRE MANAGER Temperature 36.7 ??C (98.1 ??F) 02/22/2017 11:59 AM TEN PIN BOWLING CENTRE MANAGER Respiratory Rate - - Oxygen Saturation 100% 02/22/2017 11:59 AM TEN PIN BOWLING CENTRE MANAGER Inhaled Oxygen Concentration - - Weight - [...] have suggested that the patient Push fluids. PIN BOWLING CENTRE MANAGER documented in this encounter Nursing Notes Nury [...] Medication Reconciliation: complete [place] CMA (AASANDRA) PIN BOWLING CENTRE MANAGER documented in this encounter Plan of Treatment Upcoming Encounters Date Type Specialty Care Team Description 01/07/2022 Virtual Visit Endocrinology Natalya Jean MD [address] [place] [address] (Wo rk) documented as of this encounter Visit Diagnoses Diagnosis Acute sinusitis with symptoms greater th an 10 days - Primary Acute sinusitis, unspecified documented in this encounter Additional Health Concerns Assessment Noted Time PHQ-9 Depression Total Score: 9 02/19/2017 2:07 PM TEN PIN BOWLING CENTRE MANAGER documented as of this encounter Care Teams Window Shade Installer Relationship Specialty Start Date End Date Gina Bautista, PCP - General Physician Safety Lamp Keeper 5 09/03/21 PA-C [address] [place] [address] Gina Bautista, PCP - Assigned PCP 01/12/15 05/11/18 PA-C 49449 [place] [address] Gina Bautista, Physician Safety Lamp Keeper 01/31/15 PA-C [address]69 [place] [address] Gina Bautista, Assigned PCP 01/12/15 PA-C 52977 [place] [address] documented as of this encounter
--- OUTSIDE RECORDS SUMMARY | 2021-11-12 13:57 | XMS_ITS | Encounter Summary ---
:1985 Author Organization [facility] Address [address] [place] [address]. [place] [address] Care Team Providers Name Role Phone Gina Bautista PA-C Primary Care Provider [phone] Oestrfrances, Gina Vance PA-C Unavailable [phone] Oestrfrances, Gina Vance PA-C Unavailable [phone] Oestrfrances, Gina Vance PA-C Unavailable [phone] Reason for Visit Reason Comments IUD Encounter Details Date Type Department Care Team Description 01/27/2017 Office Visit [facility] Nadine Monreal Encou nter for IUD removal (Primary Dx); [facility] Encounter for preconception consultation [place] [address] [place] [address] [facility] [address] [place], [place] (Work) [address] [phone] Social History Tobacco Use Types Packs/Day Years Used Date Never Smoker Smokeless Tobacco: Never Used Alcohol Use Standard Drinks/Week Comments Yes 0 (1 standard drink = 0.6 oz pure alcoho l) Sex Assigned at Date Recorded Not on file documented as of this encounter Last Filed Vital Signs Vital Sign Reading Time Taken Comments Blood Pressure 100/60 01/27/2017 1:05 PM SCROLL ASSEMBLER Pulse - - Temperature - - Respiratory Rate - - Oxygen Saturation - - Inhaled Oxygen Concentration - - Weight 79.3 kg (174 lb 12.8 oz) 01/27/2017 1:05 PM SCROLL ASSEMBLER Height - - Body Mass Index 28.21 [...] muscle every 30 days vitamin D (ERGOCALCIFEROL) [address] UNIT capsule Take 1 capsule (50,000 Units) [...] with hematology as needed. Nadine Monreal MD [facility] LL ASSEMBLER documented in this encounter Nursing Notes Nataliia [...] 12.8 oz (79.3 kg). Medication Reconciliation: complete LL ASSEMBLER documented in this encounter Plan of Treatment Upcoming Encounters Date Type Specialty Care Team Description 01/07/2022 Virtual Visit Endocrinology Natalya Jean MD [address] [place] [address] (Wo rk) documented as of this encounter Procedures Procedure Name Priority Date/Time Associated Diagnosis Comme nts HC REMOVE INTRAUTERINE Routine 01/27/2017 1:33 PM Encounter fo r IUD DEVICE SCROLL ASSEMBLER removal documented in this encounter Visit Diagnoses Diagnosis Encounter for IUD removal - Primary Encounter for removal of intrauterine co ntraceptive device Encounter for preconception consultation documented in this encounter Additional Health Concerns Assessment Noted Time PHQ-9 Depression Total Score: 7 12/19/2016 3:37 PM CDT documented as of this encounter Care Teams Log Haul Operator Relationship Specialty Start Date End Date Gina Bautista, PCP - General Physician Instrumentation Instructor 5 09/03/21 [facility] [address] [place] [address] Gina Bautista, PCP - Assigned PCP 01/12/15 05/11/18 PA-C [address] [address] [place], [place] [address] Gina Bautista, Physician Instrumentation Instructor 01/31/15 PA-C 66829 [place] [address] Gina Bautista, Assigned PCP 01/12/15 PA-C 33455 [place] [address] documented as of this encounter
--- OUTSIDE RECORDS SUMMARY | 2021-11-12 13:57 | XMS_ITS | Encounter Summary ---
:1985 Author Organization [place] Address [address] [place] [address]. [place] [address] Care Team Providers Name Role Phone Gina Bautista PA-C Primary Care Provider [phone] Gina Bautista PA-C Unavailable [phone] Gina Bautista PA-C Unavailable [phone] Gina Bautista PA-C Unavailable [phone] Reason for Visit Reason Onset Date Comments Outreach 05/27/2017 Encounter Details Date Type Department Care Team Description 05/27/2017 Telephone [facility] Lyle Bautista, Outreach Lucia [address]ERNAL [address] [address] [place] [address] [place] [id number] (Wo rk) Social History Tobacco Use Types [...] Panchito Gandhi sent at 04/15/2017 4:53 PM PATIENT SAFETY MANAGER ----- Call pt to schedule lab only in next 2 weeks. Labs pended. Panchito Gandhi CMA ([facility]) documented in this encounter Plan of Treatment Upcoming Encounters Date Type Specialty Care Team Description 01/07/2022 Virtual Visit Endocrinology Natalya Jean MD [address] [place] [address] (Wo rk) documented as of this encounter Visit Diagnoses Not on filedocumented in this encounter Additional Health Concerns Assessment Noted Time PHQ-9 Depression Total Score: 10 05/09/2017 8:01 AM CS T documented as of this encounter Care Teams Security Services Specialist Relationship Specialty Start Date End Date Gina Bautista, PCP - General Physician Snuff Grinder 5 09/03/21 PA-C 51141 [place] [address] Gina Bautista, PCP - Assigned PCP 01/12/15 05/11/18 PA-C 90121 [place] [address] Gina Bautista, Physician Snuff Grinder 01/31/15 PA-C 13717 [place] [id number] Gina Bautista, Assigned PCP 01/12/15 PA-C 32531 [place] [address] documented as of this encounter
--- OUTSIDE RECORDS SUMMARY | 2021-11-12 13:57 | XMS_ITS | Encounter Summary ---
:1985 Author Organization [place] Address [address] [place] [address]. [place] [address] Care Team Providers Name Role Phone Gina Bautista PA-C Primary Care Provider [phone] Gina Bautista PA-C Unavailable [phone] Gina Bautista PA-C Unavailable [phone] Gina Bautista PA-C Unavailable [phone] Reason for Visit Mental Health Outpatient (Routine) - Closed Specialty Diagnoses / Procedures Referred By Contact Refer red To Contact Gina Bautista FAIRVI [facility] BERNAL [facility] [id number] [place] [id number] [place] [address] [place] [address] Phone: Fax: Referral ID Status Reason Start Date Expiration Date Visits Requ ested Visits Authorized [facility] Closed 01/14/2017 01/14/2018 1 52 Encounter Details Date Type Department Care Team Description 02/06/2017 Office Visit [facility] Lisa Lopez LP Anxiety (Primary Dx) Services [place] [id number] [facility] [address] [place] [phone] Social History Tobacco Use [...] NAME: Carley Hernandez : 1985 ACCT. NUMBER: [id number] DATE OF SERVICE: 02/06/17 Identifying Information: Client is a 31 year old, , female. Client was referred for counseling by self. 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 Client attended the session alone. Client's Statement [...] History: Client reported she grew up in [place], [place]. They were the second born of [...] concentration. There are no ethnic, cultural or episcopal factors that may be relevant for therapy. Client identified her preferred language to be Malay. Client reported she does not need the assistance of an diplomatic interpreter or other support involved in therapy. [...] an exam with PCP. The clienthas a [place] Primary Care Provider, who is named Gina [...] muscle every30 days ??? vitamin D (ERGOCALCIFEROL) 39673 UNIT capsule Take 1 capsule (50,000 Units) [...] the following activities. For each question, please kwigillingok only one response. S1 Standing for long [...] Plan: The client reports no currently identified episcopal, ethnic or cultural issues relevant to therapy. Lens Dotter services are not indicated. Modifications to assist [...] NA. Client will have access to their [facility]' medical record. Lisa Lopez LP February 06, 2017 S BURNISHER documented in this encounter Plan of Treatment Upcoming Encounters Date Type Specialty Care Team Description 01/07/2022 Virtual Visit Endocrinology Natalya Jean MD [address] [place] [address] (Wo rk) documented as of this encounter Visit Diagnoses Diagnosis Anxiety - Primary Anxiety state, unspecified documented in this encounter Additional Health Concerns Assessment Noted Time PHQ-9 Depression Total Score: 7 12/19/2016 3:37 PM CDT documented as of this encounter Care Teams Retirement Village Manager Relationship Specialty Start Date End Date Gina Bautista, PCP - General Physician Belt Builder Helper 5 09/03/21 [place] [address] [place] [address] Gina Bautista, PCP - Assigned PCP 01/12/15 05/11/18 PA-C [address] [place] [address] Gina Bautista, Physician Belt Builder Helper 01/31/15 PA-C 83254 [place] [address] Gina Bautista, Assigned PCP 01/12/15 PA-C [address] [place] [address] documented as of this encounter
--- OUTSIDE RECORDS SUMMARY | 2021-11-12 13:57 | XMS_ITS | Encounter Summary ---
:1985 Author Organization [facility] Address [address] [place] [address]. [place] [address] Care Team Providers Name Role Phone Gina Bautista PA-C Primary Care Provider [phone] Gina Bautista PA-C Unavailable [phone] Gina Bautista PA-C Unavailable [phone] Gina Bautista PA-C Unavailable [phone] Reason for Visit Mental Health Outpatient (Routine) - Closed Specialty Diagnoses / Procedures Referred By Contact Refer red To Contact Gina Bautista FAIRVI [facility] JANETTE BERNAL [facility] [id number] [place] [id number] [place] [address] [place] [address] Phone: Fax: Referral ID Status Reason Start Date Expiration Date Visits Requ ested Visits Authorized [facility] Closed 01/14/2017 01/14/2018 1 52 Encounter Details Date Type Department Care Team Description 02/19/2017 Office Visit [facility] Lisa Lopez LP Anxiety (Primary Dx) Services [place] [id number] [facility] [address] [place] [phone] Social History Tobacco Use [...] decree) Talks to relatives ( who are barn operator) to get concrete info. Explored TIP [...] plan. Lisa Lopez LP February 19, 2017 RER SHAFT SINKING documented in this encounter Plan of Treatment Upcoming Encounters Date Type Specialty Care Team Description 01/07/2022 Virtual Visit Endocrinology Natalya Jean MD [address] [place] [address] (Wo rk) documented as of this encounter Visit Diagnoses Diagnosis Anxiety - Primary Anxiety state, unspecified documented in this encounter Additional Health Concerns Assessment Noted Time PHQ-9 Depression Total Score: 9 02/19/2017 2:07 PM LABORER SHAFT SINKING documented as of this encounter Care Teams Framing Machine Tender Relationship Specialty Start Date End Date Gina Bautista, PCP - General Physician Homemaker Companion 5 09/03/21 PA-C [address] [place] [address] Gina Bautista, PCP - Assigned PCP 01/12/15 05/11/18 PA-C 34984 [place] [address] Gina Bautista, Physician Homemaker Companion 01/31/15 PA-C 15788 [place] [address] Gina Bautista, Assigned PCP 01/12/15 PA-C 58995 [place] [address] documented as of this encounter
--- OUTSIDE RECORDS SUMMARY | 2021-11-12 13:57 | XMS_ITS | Encounter Summary ---
:1985 Author Organization [facility] Address [address] [place] [address]. [place] [address] Care Team Providers Name Role Phone Gina Bautista PA-C Primary Care Provider [phone] Gina Bautista PA-C Unavailable [phone] Gina Bautista PA-C Unavailable [phone] Gina Bautista PA-C Unavailable [phone] Reason for Referral - Closed Specialty Diagnoses / Procedures Referred By Contact Refer red To Contact Diagnoses S/P gastric bypass Gina Bautista, Procedures VITAMIN B12 INJ /1000MCG [place] [address] [place] [address] Referral ID Status Reason Start Date Expiration Date Visits Requ ested Visits Authorized [id number] Closed 12/29/2016 12/29/2017 1 1 Reason for Visit Reason Comments Imm/Inj starting B 12 injections Encounter Details Date Type Department Care Team Description 12/29/2016 Allied Health/Nurse [facility] Imm /Inj (starting B 12 Visit Clinic [place] injections ) [address] [place] [id number] Social History Tobacco Use Types Packs/Day Years [...] [address] [place], [place] [address] (Wo rk) documented as of this encounter Visit Diagnoses Diagnosis S/P gastric bypass - Primary Bariatric surgery status documented in this encounter Additional Health Concerns Assessment Noted Time PHQ-9 Depression Total Score: 7 12/19/2016 3:37 PM CDT documented as of this encounter Care Teams Surgical Forceps Fabricator Relationship Specialty Start Date End Date Gina Bautista, PCP - General Physician Lap Maker 5 09/03/21 PA-C [address] [place] [address] Gina Bautista, PCP - Assigned PCP 01/12/15 05/11/18 PA-C [address] [place] [address] Gina Bautista, Physician Lap Maker 01/31/15 PA-C 425[address] [place] [address] Gina Bautista, Assigned PCP 01/12/15 PA-C [address] [place] [address] documented as of this encounter
--- OUTSIDE RECORDS SUMMARY | 2021-11-12 13:57 | XMS_ITS | Encounter Summary ---
:1985 Author Organization [place] Address [address] [place] [address]. [place] [address] Care Team Providers Name Role Phone Gina Bautista PA-C Primary Care Provider [phone] Gina Bautista PA-C Unavailable [phone] Gina Bautista PA-C Unavailable [phone] Gina Bautista PA-C Unavailable [phone] Encounter Details Date Type Department Care Team Description 05/08/2017 Office Visit [facility] Lisa Lopez LP Anxiety (Primary Dx) Services [address] [phone] Social History Tobacco Use Types Packs/Day Years [...] her ex spouse. At work, has received JoggleBugs and a perk. But has lots of [...] plan. Lisa Lopez LP February 19, 2017 ER GAS documented in this encounter Plan of Treatment Upcoming Encounters Date Type Specialty Care Team Description 01/07/2022 Virtual Visit Endocrinology Natalya Jean MD [address] [place] [address] (Wo rk) documented as of this encounter Visit Diagnoses Diagnosis Anxiety - Primary Anxiety state, unspecified documented in this encounter Additional Health Concerns Assessment Noted Time PHQ-9 Depression Total Score: 10 05/09/2017 8:01 AM CS T documented as of this encounter Care Teams Merchandise Presentation Manager Relationship Specialty Start Date End Date Gina Bautista, PCP - General Physician Phlebotomist Lab Assistant 5 09/03/21 PA-C [address] [place] [address] Gina Bautista, PCP - Assigned PCP 01/12/15 05/11/18 PA-C [address] [place] [address] Gina Bautista, Physician Phlebotomist Lab Assistant 01/31/15 PA-C [address] [place] [address] Gina Bautista, Assigned PCP 01/12/15 PA-C 73167 [place] [address] documented as of this encounter
--- OUTSIDE RECORDS SUMMARY | 2021-11-12 13:57 | XMS_ITS | Encounter Summary ---
:1985 Author Organization [facility] [facility] Address [address] [place] [address]. [place] [address] Care Team Providers Name Role Phone Gina Bautista PA-C Primary Care Provider [phone] Gina Bautista PA-C Unavailable [phone] Gina Bautista PA-C Unavailable [phone] Gina Bautista PA-C Unavailable [phone] Encounter Details Date Type Department Care Team Description 04/27/2015 Telephone [facility] Lyle Bautista [place] PA-C [address] [address] [place] [address] [place] [id number] (Wo rk) Social History Tobacco Use Types Packs/Day Years Used Date Never Smoker Smokeless Tobacco: Never Used Alcohol Use Standard Drinks/Week Comments Yes 0 (1 standard drink = 0.6 oz pure alcoho l) Sex Assigned at Date Recorded Not on file documented as of this encounter Miscellaneous Notes Telephone Encounter - Gina Bautista PA-C - 04/27/2015 8:25 AM [employer] Spoke with patient regarding labs. Will restart Synthroid 75mcg daily, recheck in 6-8 weeks Discussed low hemoglobin, will have her get labs today and then start iron replacement BID, recheck in 6-8 weeks as well. Discussed remained of labs. Gina Bautista PA-C [employer] Telephone Encounter - Monica Tony CMA - 04/27/2015 8:20 AM CST Per patient, placed letter at front end java developer for patient pick pulling machine operator Marianne Chavo CAMPOS (AAIN) 04/27/2015 8:21 AM [employer] Telephone Encounter - Gina Bautista PA-C - 04/27/2015 8:13 AM [employer] Left Vm for patient, would like to discuss labs results. Gina Bautista PA-C [employer] documented in this encounter Plan of Treatment Upcoming Encounters Date Type Specialty Care Team Description 01/07/2022 Virtual Visit Endocrinology Natalya Jean MD [address] [place] [address] (Wo rk) documented as of this encounter Visit Diagnoses Not on filedocumented in this encounter Additional Health Concerns Assessment Noted Time PHQ-9 Depression Total Score: 16 04/26/2015 8:54 AM CS T documented as of this encounter Care Teams Lighter Captain Relationship Specialty Start Date End Date Gina Bautista, PCP - General Physician Assistant Mechanic 5 09/03/21 [place] [address] [place] [address] Gina Bautista PCP - Assigned PCP 01/12/15 05/11/18 [place] [address] [place] [address] Gina Bautista, Physician Assistant Mechanic 01/31/15 [address] [address] [place] [address] Gina Bautista, Assigned PCP 01/12/15 [address] [address] [place] [address] documented as of this encounter
--- OUTSIDE RECORDS SUMMARY | 2021-11-12 13:57 | XMS_ITS | Encounter Summary ---
:1985 Author Organization [facility] Address [address] [place] [address]. [place] [address] Care Team Providers Name Role Phone Gina Bautista PA-C Primary Care Provider [phone] Gina Bautista PA-C Unavailable [phone] Gina Bautista PA-C Unavailable [phone] Gina Bautista PA-C Unavailable [phone] Reason for Visit Reason Comments URI Encounter Details Date Type Department Care Team Description 06/25/2015 Office Visit [facility] Serum, Ro Viral URI (Primary Dx); Yony Yarbrough MD Acute pharyngitis, unspecified etiology [facility] [facility] [place] [address] [place] [phone] [address] [place], [place] [address] Social History Tobacco Use [...] list, Allergies, and Medical/Social/Surgical histories reviewed in [facility] andupdated as appropriate. OBJECTIVE: BP 96/56 [...] Follow up with Provider - alexis Salgado [facility] YONY documented in this encounter Nursing Notes [...] [address] [place] [address] (Wo rk) documented as of this encounter [...] Component Value Ref Test [facility] Method Time Signature Specimen Throat [facility] YONY Culture Micro No Beta FIFE Streptococcus [facility] isolated YONY Micro Report FINAL 06/27/2015 [facility] YONY Specimen Anatomical Collection Method Collection Time Receive d Time (Source) Location / / Volume Laterality 06/25/2015 5:20 PM 6 5:25 CDT PM CDT Ro Salgado MD LAB - MICRO GENERAL ORDERABL ES Performing Organization Address City/State/ZIP Code Phon e Number [facility] [address] [facility] [place] [address] Strep, Rapid Screen (06/25/2015 5:20 PM CDT) Component Value Ref Test Analysis Performed At [facility] bepretty Range Method Time Signature Specimen Throat [facility] YONY Rapid Strep A NEGATIVE: No Group A strepto coccal antigen detected by immunoassay, await FIFE Screen culture report. CLINICS [place] Micro Report FINAL 06/25/2015 FIFE Status CLINICS Y[place]Y Specimen Anatomical Collection Method Collection Time Receive d Time (Source) Location / / Volume Laterality Specimen from 06/25/2015 5:20 PM 06/25/19 16 5:25 throat CDT PM CDT (specimen) Ro Salgado MD LAB - MICRO GENERAL ORDERABL ES Performing Organization Address City/State/ZIP Code Phon e Number [facility] [place] [address] [facility] [place] [address] documented in this encounter Visit Diagnoses Diagnosis Viral URI - Primary Acute upper respiratory infections of un specified site Acute pharyngitis, unspecified etiology documented in this encounter Additional Health Concerns Assessment Noted Time PHQ-9 Depression Total Score: 16 04/26/2015 8:54 AM CS T documented as of this encounter Care Teams Hairpiece Stylist Relationship Specialty Start Date End Date Gina Bautista, PCP - General Physician Internal Audit Senior Manager 5 09/03/21 PA-C [address] [place] [place], [place] [address] Gina Bautista, PCP - Assigned PCP 01/12/15 05/11/18 PA-C 19619 [place] [address] Gina Bautista, Physician Internal Audit Senior Manager 01/31/15 PALiuC [address] [place] [address] Gina Bautista, Assigned PCP 01/12/15 PA-C 56852 [place] [address] documented as of this encounter
--- OUTSIDE RECORDS SUMMARY | 2021-11-12 13:57 | XMS_ITS | Encounter Summary ---
:1985 Author Organization [facility] Address [address] [place] [address]. [place] [address] Care Team Providers Name Role Phone Gina Bautista PA-C Primary Care Provider [phone] Gina Bautista PA-C Unavailable [phone] Vidya Espinal APRN [facility] Unavailable [phone] Clinic, [facility] Unavailable Encounter Details Date Type Department Care Team Description 08/08/2021 Medical Correspondence [facility] Scan, ENDOCRINOLOGY ORDER Health Info [facility] Non-Provider [facility] [address] [place] [address] Social History Tobacco Use Types Packs/Day [...] [address] [place], [place] [address] (Wo rk) documented as of this encounter Visit Diagnoses Not on filedocumented in this encounter Additional Health Concerns Assessment Noted Time PHQ-9 Depression Total Score: 10 05/09/2017 8:01 AM CS T documented as of this encounter Care Teams Bundle Shaker Relationship Specialty Start Date End Date Gina Bautista, PCP - General Physician Motor Lodge Clerk 5 09/03/21 [place] [address] [place] [id number] Gina Bautista, Physician Motor Lodge Clerk 01/31/15 [place] [address] [place] [id number] Vidya Espinal APRN CNM Hand Stitcher 08/21/21 [place] [phone] [facility], [facility] 08/21/[address] [address] documented as of this encounter
--- OUTSIDE RECORDS SUMMARY | 2021-11-12 13:57 | XMS_ITS | Encounter Summary ---
:1985 Author Organization [facility] Address [address] [place] [address]. [place] [address] Care Team Providers Name Role Phone Gina Bautista PA-C Primary Care Provider [phone] Gina Bautista PA-C Unavailable [phone] Gina Bautista PA-C Unavailable [phone] Gina Bautista PA-C Unavailable [phone] Reason for Visit Reason Comments Medication Refill Encounter Details Date Type Department Care Team Description 03/22/2017 Refill [facility] Lyle Bautitsa Medication Refill Lucia Vance PA-C [address] [place] [phone] [place] [address] [phone] (Wo rk) Social History Tobacco Use Types Packs/Day Years Used Date Never Smoker Smokeless Tobacco: Never Used Alcohol Use Standard Drinks/Week Comments Yes 0 (1 standard drink = 0.6 oz pure alcoho l) Sex Assigned at Date Recorded Not on file documented as of this encounter Miscellaneous Notes Telephone Encounter - Violette Archer - 04/06/2017 3:23 PM CST Appointment scheduled ING MACHINE OPERATOR HELPER Telephone Encounter - Panchito Gandhi - 04/03/2017 10:43 AM CST 2nd attempt, LM to call back. Needs non-fasting lab only apt. Panchito Gandhi CMA (AAOH) ING MACHINE OPERATOR HELPER Telephone Encounter - Donya Damon - 03/26/2017 11:50 AM CST 1st attempt LVM to call back to make an appt ING MACHINE OPERATOR HELPER Telephone Encounter - Yvette Negrete RN - 03/25/2017 12:18 PM COATING MACHINE OPERATOR HELPER Medication is being filled for 1 time refill only due to: Patient needs labs recheck on Vitamin D level. Call to schedule lab only appointment, future order previously placed. Kim Negrete RN ING MACHINE OPERATOR HELPER Telephone Encounter - Kaye Gr - 03/23/2017 9:36 AM CST vitamin D (ERGOCALCIFEROL) 58785 UNIT capsule Last Written Prescription Date: 12/22/2016 Last Fill Quantity: 12, # refills: 0 Last Office Visit: 02/22/2017 Future Office visit: Next 5 appointments (look out 90 days) Apr 24, 2017 2:00 PM COATING MACHINE OPERATOR HELPER Return Visit with Lisa Lopez LP [facility] [address] [facility] [address] May 08, 2017 2:00 PM COATING MACHINE OPERATOR HELPER Return Visit with Lisa Lopez LP [facility] [address] [facility] [address] May 22, 2017 2:00 PM CDT Return Visit with Lisa Lopez LP [facility] [address] [facility] [phone] Routing refill request to provider for review/approval because: Drug not on the [facility], [facility] or Health refill protocol or controlled substance ING MACHINE OPERATOR HELPER documented in this encounter Plan of Treatment Upcoming Encounters Date Type Specialty Care Team Description 01/07/2022 Virtual Visit Endocrinology Natalya Jean MD [address] [place] [address] (Wo rk) documented as of this encounter Visit Diagnoses Diagnosis Vitamin D deficiency Unspecified vitamin D deficiency documented in this encounter Additional Health Concerns Assessment Noted Time PHQ-9 Depression Total Score: 9 02/19/2017 2:07 PM COATING MACHINE OPERATOR HELPER documented as of this encounter Care Teams Ux Designer Relationship Specialty Start Date End Date Gina Bautista, PCP - General Physician Telecommunications Linesworker 5 09/03/21 PA-C [address] [place] [address] Gina Bautista, PCP - Assigned PCP 01/12/15 05/11/18 PA-C [address]27[address] [place] [address] Gina Bautista, Physician Telecommunications Linesworker 01/31/15 PA-C 125[address] [place] [address] Gina Bautista, Assigned PCP 01/12/15 PA-C 68394 [place] [address] documented as of this encounter
--- OUTSIDE RECORDS SUMMARY | 2021-11-12 13:57 | XMS_ITS | Clinical Summary ---
:1985 Author Organization [facility] [place] [address] Care Team Providers Name Role Phone Pcp, No Primary Care Provider Unavailable Allergies No known active allergies Medications Medication Sig Dispensed Refills Start Date End Date Status acetaminophen Take 500 mg by 0 A ctive (TYLENOL EXTRA mouth every 6 hours STRGTH) 500 mg tablet if needed. Max acetaminophen dose: 4000mg in 24 hrs. ferrous sulfate, 65 1 oral every other 90 tablet 3 02/02/2018 Active mg elemental, day tabletIndications: care in second trimester multivitamins-calcium Take 1 tablet by 0 08/24/2018 Active -iron-minerals 27-0.4 mouth once daily. mg tab tablet sertraline (ZOLOFT) Take 1 tablet by 90 tablet 1 10/18/2018 Active 100 mg mouth every tabletIndications: morning. Depression, recurrent (HC) levothyroxine Take 1 tablet by 60 tablet 5 11/04/2018 Active (SYNTHROID) 137 mcg mouth before tabletIndications: breakfast. 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 1. History delivery 34 and 36wks , history shortened cervix. Meets criteria for progesterone (perinatology consulted) 2. History SAB x 5 3. Hypothyroidism: was off treatment whe n got , restarted levothyroxine 10/22/17 around 4wks 4. History depression/anxiety: started o n sertraline 10/22/17. Counseling. 5. History gastric bypass, previously ne eding iron infusions, stable on oral iron over last year prior to 6. 05/03/18: GBS negative. Recommend repe at beginning June if not delivered. 7. contractions with mild tax technician al cervical change, admitted to [facility] and received steroids x 2. It's a girl. Estimated Date of Delivery: 06/26/18 Patient's last menstrual period was 09/06 (exact date). Last Tdap- 04/05/2018 Last Flu vaccine- 11/10/2017 Glucose (GTT) result- Component Latest Ref Rng & Units 03/18/2018 GLUCOSE,GESTATIONAL 65 - 139 mg/dL 88 Component Latest Ref Rng & Units 05/03/2018 019 Culture No Group B Streptococcus isolated. TREPONEMA PALLIDUM Negative Negative No Known Allergies Obstetric History T0 L2 SAB5 TAB0 Ectopic0 Multiple0 Live s2 # Outcome Date GA Lbr Charles/2nd Weight Sex Delivery Anes PTL Lv 8 Current 7 2017 6 2017 5 2017 4 08/04/13 34w0d M Vag Y TIFFANIE 3 2012 2 2011 1 12/02/10 36w0d 2.72 kg (6 lb) M Vag TIFFANIE Create lab flowsheet for OB labs- Component Latest Ref Rng & Units 11/03/2017 018 11/03/2017 4:31 PM 4:31 PM 4:31 PM HEMOGLOBIN 12.0 - 16.0 g/dL 13.2 MCV 80 - 100 fL 88 ANTIBODY SCREEN Negative Negative SPECIMEN EXPIRATION DATE/TIME 11/06/17 23:59 RUBELLA IGG ANTIBODY Positive 9.00 HIV-1/HIV-2 ANTIBODY Non-Reactive Non-Reactive ABORH B Rh Positive HBSAG Nonreactive Nonreactive TREPONEMA PALLIDUM Negative Negative LYME SCREEN W/REFLEX WEST BLOT Negative Negative HEMOGLOBIN A1C SCREENING <6.4 % 5.0 FERRITIN 15.0 - 205.0 ng/mL 26.7 Past Medical History: Diagnosis Date ? ? Hypothyroid Past Surgical History: Procedure Laterality Date ? ? CHOLECYSTECTOMY 01/2012 ? ? GASTRIC BYPASS 08/2007 No data on file. Problems (from 11/03/17 to pre sent) No problems associated with this episod eGURJIT Roa.....11/11/2017 7:54 AM Anxiety 02/06/2017 Overweight 12/19/2016 Adjustment disorder with depressed mood 02/05/2015 Hypothyroidism due to acquired atrophy of thyroid 01/09 S/P gastric bypass 12/20/2007 Resolved Problems Problem Noted Date Resolved Date contractions 05/03/2018 05/28/2018 Encounter for supervision of other normal , first 0 11/03/2017 05/25/2018 trimester Immunizations Name Administration Dates Next Due Influenza, IIV3 (Age >=3 years) 12/19/2016 Influenza, IIV4 11/10/2017 Tdap 04/05/2018, 03/09/2012 Family History Medical History Relation Name Comments Psychiatric illness Father Thyroid Disease Maternal Grandmother Thyroid Disease Mother Relation Name Status Comments Father Alive Maternal Grandmother Mother Alive Social History Tobacco Use Types Packs/Day Years Used Date Never Smoker Smokeless Tobacco: Never Used Tobacco Cessation: Counseling Given: Yes Alcohol Use Standard Drinks/Week Comments Yes 0 (1 standard drink = 0.6 oz pure alcoho l) Alcohol Habits Answer Date Recorded How often do you have a drink containing alcohol? 2-4 times a month 08/09/2018 How many drinks containing alcohol do you have on a 1 or 2 08/09/2018 typical day when you are drinking? How often do you have six or more drinks on one Never 08/09/2018 occasion? Comment: Not asked Sex Assigned at Date Recorded Not on file Obstetrics History Para Term AB IAB SAB Ectopic Multiple Living Live Births 9 3 1 2 6 6 3 3 Date Outcome GA Total Labor//3rd Weight Sex Delivery Anes PTL Tiffanie A 1 A5 Name Clin Labor 12/02 36w 2.72 kg M Vag Lary Ell io 0d (6 lb) ng tt 08/04 34w M Vag Y Lary Abner /2013 0d ng Comments: PTL 23wks and put on bed rest, was on progesterone during 2016 SAB SPONTANEOUS 2017 SAB 2017 SAB 2017 SAB 06/23/2018 Term 38w3d F Vag Living Last Filed Vital Signs Vital Sign Reading Time Taken Comments Blood Pressure 102/70 10/18/2018 3:49 PM CDT Pulse 70 10/18/2018 3:49 PM CDT Temperature 36.8 ??C (98.2 ??F) 05/28/2018 8:30 AM CDT Respiratory Rate 18 05/28/2018 8:30 AM CDT Oxygen Saturation 100% 10/18/2018 3:49 PM CDT Inhaled Oxygen Concentration - - Weight 99.3 kg (219 lb) 10/18/2018 3:49 PM CDT Height 167.6 cm (5' 6) 08/09/2018 9:35 AM CDT Body Mass Index 35.35 08/09/2018 9:35 AM CDT Plan of Treatment Health Maintenance Due Date Last Done Comments COVID-19 vaccine series (#1) 02/20/1988 Hepatitis C screening for age 0608/20/2005 18-79 BMI (ht and wt on same day) for 08/10/2019 08/09/2018, 10/08, age 18+ 10/22/2017 Depression screening for age 12+ 10/19/2019 10/18/2018, , 08/10/2018, Additional history exists Influenza for age 9-49 11/07/2021 11/10/2017, 12/19/2016 Pap test for age 21-65 01/16/2023 01/17/2020, 01/17/2020, 12/19/2016 ([facility]) Tetanus booster 04/05/2028 04/05/2018, 03/09/2012 Tdap Completed 04/05/2018, 03/09/2012 Results Not on filefrom Last 3 Months Advance Directives Latest Code Status on File Code Status Date Activated Date Inactivated Comments Full Code 05/25/2018 11:18 PM 05/28/2018 2:46 PM Full Code 05/03/2018 7:52 PM 05/04/2018 5:01 PM Full Code 07/04/2013 11:25 AM 07/04/2013 4:53 PM Care Teams Air Director Relationship Specialty Start Date End Date Pcp, No PCP - General 01/15/19 .
--- OUTSIDE RECORDS SUMMARY | 2021-11-12 13:57 | XMS_ITS | Encounter Summary ---
:1985 Author Organization [place] Address [address] [place] [address]. [place] [address] Care Team Providers Name Role Phone Gina Bautista PA-C Primary Care Provider [phone] Gina Bautista PA-C Unavailable [phone] Gina Bautista PA-C Unavailable [phone] Gina Bautista PA-C Unavailable [phone] Reason for Visit Reason Comments Sinus Problem Encounter Details Date Type Department Care Team Description 07/27/2015 Office Visit [facility] Gina Bautista Acute recurrent Clinic Lucia Vance PA-C maxillary sinusitis [address] (Primary Dx) [place], [place] [id number] [phone] Social History Tobacco Use Types Packs/Day Years [...] She has been treated twice by in [place] with Amoxicillin without relief No fever, very [...] the plan of care. Gina Bautista PA-C [facility] documented in this encounter Nursing [...] phone number for results from this visit [phone] OK to leave message Marianne Tony CMA (AAMA) 07/27/2015 8:58 AM documented in this encounter Plan of Treatment Upcoming Encounters Date Type Specialty Care Team Description 01/07/2022 Virtual Visit Endocrinology Natalya Jean MD [address] [place] [address] (Wo rk) documented as of this encounter Visit Diagnoses Diagnosis Acute recurrent maxillary sinusitis - Pr imary Acute maxillary sinusitis documented in this encounter Additional Health Concerns Assessment Noted Time PHQ-9 Depression Total Score: 16 04/26/2015 8:54 AM CS T documented as of this encounter Care Teams Mold Making Plastics Sheets Supervisor Relationship Specialty Start Date End Date Gina Bautista, PCP - General Physician Warehouse Receiver 5 09/03/21 PA-C [id number] [place] [address] Gina Bautista, PCP - Assigned PCP 01/12/15 05/11/18 PA-C [address] [place] [address] Gina Bautista, Physician Warehouse Receiver 01/31/15 PA-C [address] [place] [address] Gina Bautista, Assigned PCP 01/12/15 PA-C [address] [place] [address] documented as of this encounter
--- OUTSIDE RECORDS SUMMARY | 2021-11-12 13:57 | XMS_ITS | Encounter Summary ---
:1985 Author Organization [facility] Address [address] [place] [address]. [place] [address] Care Team Providers Name Role Phone Gina Bautista PA-C Primary Care Provider [phone] Gina Bautista PA-C Unavailable [phone] Gina Bautista PA-C Unavailable [phone] Gina Bautista PA-C Unavailable [phone] Reason for Visit Reason Onset Date Comments Refill Request 04/14/2017 Encounter Details Date Type Department Care Team Description 04/14/2017 Telephone [facility] Lyle Bautista Refill Request Lucia Vance PA-C [address] [address] [place] [address] [place] [address] [phone] (Wo rk) Social History Tobacco Use Types [...] in 6-8 weeks. Panchito Gandhi CMA (AAMA) OYER RELATIONS REPRESENTATIVE Telephone Encounter - Gina Bautista PA-C - 04/14/2017 12:48 PM EMPLOYER RELATIONS REPRESENTATIVE Lab orders futured and rx sent to pharmacy. Please notify patient should schedule lab only visit in 6-8 weeks, will check TSH and Vit D. 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 - Primary Vitamin D deficiency Unspecified vitamin D deficiency documented in this encounter Additional Health Concerns Assessment Noted Time PHQ-9 Depression Total Score: 9 02/19/2017 2:07 PM EMPLOYER RELATIONS REPRESENTATIVE documented as of this encounter Care Teams Wet Washer Machine Relationship Specialty Start Date End Date Gina Bautista, PCP - General Physician Industrial Psychology Teacher 5 09/03/21 PALiuC [address] [address] Gina Bautista, PCP - Assigned PCP 01/12/15 05/11/18 CELESTEC [address] [address] Gina Bautista, Physician Industrial Psychology Teacher 01/31/15 [place]LEST[place] [address] [address] [address] Gina Bautista, Assigned PCP 01/12/15 PALiuC [address] [address] [address] documented as of this encounter
--- OUTSIDE RECORDS SUMMARY | 2021-11-12 13:57 | XMS_ITS | Encounter Summary ---
:1985 Author Organization [facility] Address [address] [place] [address]. [place] [address] Care Team Providers Name Role Phone Gina Bautista PA-C Primary Care Provider [phone] Gina Bautista PA-C Unavailable [phone] Gina Bautista PA-C Unavailable [phone] Gina Bautista PA-C Unavailable [phone] Encounter Details Date Type Department Care Team Description 04/27/2015 Orders Only [facility] Iro n deficiency anemia, [place] [facility] unspecified iron [address] [place] [address] Social History Tobacco Use Types Packs/Day [...] [address] [place], [place] [address] (Wo rk) documented as of this encounter Procedures Procedure Name Priority Date/Time Associated Diagnosis Comme nts IRON AND IRON Routine 04/27/2015 11:50 AM Iron deficiency Resu lts for this BINDING CAPACITY TAX COMPLIANCE MANAGER anemia, unspecified proc edure are in iron deficiency the results section. FERRITIN Routine 04/27/2015 11:50 AM Iron deficiency Resul ts for this TAX COMPLIANCE MANAGER anemia, unspecified procedur e are in iron deficiency the results section. documented in this encounter Results (ABNORMAL) Iron and iron binding capacity (04/27/2015 11:50 AM TAX COMPLIANCE MANAGER) Patholo gist Method Time Signature Iron 13 (L) 35 - 180 [facility] ug/dL [facility] Iron Binding 619 (H) 240 - 430 [place] [facility] ug/dL [facility] Iron Saturation 2 (L) 15 - 46 % [place] [facility] Specimen Anatomical Collection Method Collection Time Receive d Time (Source) Location / / Volume Laterality Blood specimen 04/27/2015 11:50 6 (specimen) AM TAX COMPLIANCE MANAGER 11:51 AM TAX COMPLIANCE MANAGER Gina Bautista PA-C LAB - BLOOD ORDERABLES Performing Organization Address City/[facility] Phon e Number [facility] [address] [place] [phone] (ABNORMAL) Ferritin (04/27/2015 11:50 AM TAX COMPLIANCE MANAGER) P athologist Signature Ferritin 2 (L) 12 - 150 [facility] ng/mL [facility] Specimen Anatomical Collection Method Collection Time Receive d Time (Source) Location / / Volume Laterality Blood specimen 04/27/2015 11:50 6 (specimen) AM TAX COMPLIANCE MANAGER 11:51 AM TAX COMPLIANCE MANAGER Gina Bautista PA-C LAB - BLOOD ORDERABLES Performing Organization Address City/[facility] Phon e Number [facility] [address] [place] [address] documented in this encounter Visit Diagnoses Diagnosis Iron deficiency anemia, unspecified iron deficiency documented in this encounter Additional Health Concerns Assessment Noted Time PHQ-9 Depression Total Score: 16 04/26/2015 8:54 AM CS T documented as of this encounter Care Teams Shop Cooper Relationship Specialty Start Date End Date Gina Bautista PCP - General Physician Ged Preparation Teacher 5 09/03/21 DOLORES [address] [address] [id number] Gina Bautista, PCP - Assigned PCP 01/12/15 05/11/18 PA-C [address] [place] [address] Gina Bautista, Physician Ged Preparation Teacher 01/31/15 PA-C [address] [place], [place] [address] Gina Bautista, Assigned PCP 01/12/15 PA-C [address]9700 [address] [place], [place] [address] documented as of this encounter
--- OUTSIDE RECORDS SUMMARY | 2021-11-12 13:57 | XMS_ITS | Encounter Summary ---
:1985 Author Organization [facility] Address [address] [place] [address]. [place] [address] Care Team Providers Name Role Phone Gina Bautista PA-C Primary Care Provider [phone] Gina Bautista PA-C Unavailable [phone] Gina Bautista PA-C Unavailable [phone] Gina Bautista PA-C Unavailable [phone] Encounter Details Date Type Department Care Team Description 04/24/2017 Office Visit [facility] Lisa Lopez LP Anxiety (Primary Dx) Services [address] [phone] Social History Tobacco Use Types Packs/Day Years [...] plan. Lisa Lopez LP February 19, 2017 [employer] documented in this encounter Plan of Treatment Upcoming Encounters Date Type Specialty Care Team Description 01/07/2022 Virtual Visit Endocrinology Natalya Jean MD [address] [place] [address] (Wo rk) documented as of this encounter Visit Diagnoses Diagnosis Anxiety - Primary Anxiety state, unspecified documented in this encounter Additional Health Concerns Assessment Noted Time PHQ-9 Depression Total Score: 10 04/25/2017 8:01 AM CS T documented as of this encounter Care Teams Hepatologist Relationship Specialty Start Date End Date Gina Bautista, PCP - General Physician Chief Minister 5 09/03/21 DOLORES [address] [address] [id number] Gina Bautista, PCP - Assigned PCP 01/12/15 05/11/18 PA-C 280[address] [place] [address] Gina Bautista, Physician Chief Minister 01/31/15 PA-C 466[address] [place] [address] Gina Bautista, Assigned PCP 01/12/15 PA-C 69[address] [place] [address] documented as of this encounter
--- OUTSIDE RECORDS SUMMARY | 2021-11-12 13:57 | XMS_ITS | Encounter Summary ---
:1987 Author Organization [facility] Address [address] [place] [address]. [place] [address] Care Team Providers Name Role Phone Gina Bautista PA-C Primary Care Provider [phone] Gina Bautista PA-C Unavailable [phone] Vidya Espinal APRN [facility] Unavailable [phone] Clinic, [facility] Unavailable Encounter Details Date Type Department Care Team Description 2021 Medical Correspondence [facility] Scan, ENDOCRINOLOGY Health Info Mgmt Non-Provider REFERRAL [address] [address] Social History Tobacco Use Types [...] [address] [place] [address] (Wo rk) documented as of this encounter Visit Diagnoses Not on filedocumented in this encounter Additional Health Concerns Assessment Noted Time PHQ-9 Depression Total Score: 10 05/09/2017 8:01 AM CS T documented as of this encounter Care Teams Customer Service Representative Teacher Relationship Specialty Start Date End Date Gina Bautista, PCP - General Physician Mainframe Analyst 5 09/03/21 DOLORES [address] [address] [id number] Gina Bautista, Physician Mainframe Analyst 01/31/15 DOLORES [address] [address] [id number] Vidya Espinal APRN CNM Branding Machine Tender 08/21/21 [facility] [address] [id number] [facility] 08/21/[address] [address] documented as of this encounter
--- OUTSIDE RECORDS SUMMARY | 2021-11-12 13:57 | XMS_ITS | Encounter Summary ---
:1985 Author Organization [place] Address [address] [place] [address]. [place] [address] Care Team Providers Name Role Phone Paul Palumbo PA-C Primary Care Provider [phone] Paul Palumbo PA-C Unavailable [phone] Paul Palumbo PA-C Unavailable [phone] Paul Palumbo PA-C Unavailable [phone] Reason for Referral Consultation - Closed Specialty Diagnoses / Procedures Referred By Contact Refer red To Contact Diagnoses Low hemoglobin S/P gastric bypass Vitamin B 12 deficiency Paul Palumbo [facility] [address] [place] [address] [address] [place] [address] Phone: [phone] Fax: Referral ID Status Reason Start Date Expiration Date Visits Requ ested Visits Authorized [id number] Closed 12/24/2016 12/24/2017 1 1 KENO CLERK - Closed Specialty Diagnoses / Procedures Referred By Contact Refer red To Contact Diagnoses Family planning counseling IUD check up Paul Palumbo [facility] [place] [address] [place] [address] [address] [place] [address] Phone: Fax: Referral ID Status Reason Start Date Expiration Date Visits Requ ested Visits Authorized [id number] Closed 12/19/2016 12/19/2017 1 1 Reason for Visit Reason Comments Physical Flu Shot Encounter Details Date Type Department Care Team Description 12/19/2016 Office Visit [facility] Paul Palumbo general medical examination at a health care facility (Primary Dx); Clinic [facility] PA-C 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 - KENO CLERK REFERRAL 9. Family planning counseling Patient interested in future , was high risk in past, had 4 miscarriages. Will refer to KENO CLERK to discuss future conception. - KENO CLERK REFERRAL 10. Need for prophylactic vaccination and inoculation against influenza - FLU VAC, SPLIT VIRUS IM > 3 YO (QUADRIVALENT) [78963] - Vaccine Administration, Initial [89240] COUNSELING: Reviewed preventive health counseling, as reflected [...] hemoglobin and mood issues. Paul Palumbo PA-C [facility] Answers for HPI/ROS submitted by the [...] [address] [place] [address] (Wo rk) Scheduled Referrals Name Type Priority Associated Diagnoses Order S chedule KENO CLERK REFERRAL Referral Routine Family planning Ordered: 12/19/2016 [...] or this PM CDT medical examination at [facility] are in a health care facility the [...] T4 reflex FUTURE 2mo (04/10/2017 2:35 PM ACCREDITED LEGAL SECRETARY) athologist Signature TSH 10.56 (H) 0.40 - 04/12/2017 [facility] 4.00 mU/L 1:28 PM ACCREDITED LEGAL SECRETARY [facility] Specimen Anatomical Collection Method Collection Time Receive d Time (Source) Location / / Volume Laterality Blood specimen 04/10/2017 2:35 PM 018 2:36 (specimen) ACCREDITED LEGAL SECRETARY PM ACCREDITED LEGAL SECRETARY Paul Palumbo PA-C LAB - BLOOD ORDERABLES Performing Organization Address City/State/ZIP Code Phon e Number [facility] [address] [place] [address] (ABNORMAL) Vitamin D Deficiency (04/10/2017 2:35 PM ACCREDITED LEGAL SECRETARY) athologist Signature Vitamin D 13 (L) 20 - 75 04/11/2017 [facility] ug/L 11:46 AM ACCREDITED LEGAL SECRETARY [facility] Comment: Season, race, dietary intake, and treatm ent affect the concentration of 14-kzkhdmi-Tejinmn D. Values may decreas e during winter [...] specimen 04/10/2017 2:35 PM 018 2:36 (specimen) ACCREDITED LEGAL SECRETARY PM ACCREDITED LEGAL SECRETARY Paul Palumbo PA-C LAB - BLOOD ORDERABLES Performing Organization Address City/State/ZIP Code Phon e Number [facility] [address] [place] [address] [facility] T4 free (12/19/2016 3:33 PM CDT) athologist Signature T4 Free 1.00 0.76 - 1.46 12/20/2016 [facility] ng/dL 1:20 PM CDT [facility] Specimen Anatomical Collection Method Collection Time Receive d Time (Source) Location / / Volume Laterality 12/19/2016 3:33 PM 7 3:34 CDT PM CDT Paul Palumbo PA-C LAB - BLOOD ORDERABLES Performing Organization Address City/State/ZIP Code Phon e Number [facility] [address] [place] [address] WBC Differential (12/19/2016 3:33 PM CDT) [facility] gist Method Time Signature Diff Method Automated 12/19/2016 [place] Method 9:06 PM [facility] % Neutrophils 64.0 % 12/19/2016 [place] 9:06 PM [facility] % Lymphocytes 25.2 % 12/19/2016 [place] 9:06 PM [facility] % Monocytes 7.7 % 12/19/2016 [place] 9:06 PM [facility] % Eosinophils 2.3 % 12/19/2016 [place] 9:06 PM [facility] % Basophils 0.5 % 12/19/2016 [place] 9:06 PM [facility] % Immature 0.3 % 12/19/2016 [place] Granulocytes 9:06 PM [facility] Nucleated RBCs 0 0 /100 12/19/2016 [facility] 9:06 PM [facility] Absolute 4.2 1.6 - 8.3 12/19/2016 [facility] Neutrophil 10e9/L 9:06 PM [facility] Absolute 1.7 0.8 - 5.3 12/19/2016 [facility] Lymphocytes 10e9/L 9:06 PM [facility] Absolute 0.5 0.0 - 1.3 12/19/2016 [facility] Monocytes 10e9/L 9:06 PM [facility] Absolute 0.2 0.0 - 0.7 12/19/2016 [facility] Eosinophils 10e9/L 9:06 PM [facility] Absolute 0.0 0.0 - 0.2 12/19/2016 [facility] Basophils 10e9/L 9:06 PM [facility] Abs Immature 0.0 0 - 0.4 12/19/2016 [facility] Granulocytes 10e9/L 9:06 PM [facility] Absolute 0.0 12/19/2016 [facility] Nucleated RBC 9:06 PM [facility] Anisocytosis Slight 12/19/2016 [facility] 9:06 PM [facility] Ovalocytes Slight 12/19/2016 [facility] 9:06 PM [facility] Microcytes Present 12/19/2016 [facility] 9:06 PM [facility] Platelet Normal 12/19/2016 [facility] Estimate 9:06 PM [facility] Specimen Anatomical Collection Method Collection Time Receive d Time (Source) Location / / Volume Laterality 12/19/2016 3:33 PM 7 4:07 CDT PM CDT Paul Palumbo PA-C LAB - BLOOD ORDERABLES Performing Organization Address City/State/ZIP Code Phon e Number [facility] [address] [address] [facility] [address] [phone] Reticulocyte Count (12/19/2016 3:33 PM CDT) athologist Signature % Retic 1.1 0.5 - 2.0 12/19/2016 [place] % 7:25 PM CDT [facility] Absolute Retic 43.0 25 - 95 12/19/2016 [place] 10e9/L 7:25 PM CDT [facility] Specimen Anatomical Collection Method Collection Time Receive d Time (Source) Location / / Volume Laterality Blood specimen 12/19/2016 3:33 PM 017 4:07 (specimen) CDT PM CDT Paul Palumbo PA-C LAB - BLOOD ORDERABLES Performing Organization Address City/State/ZIP Code Phon e Number [facility] [address] [address] [facility] [address] [phone] Blood Morphology Pathologist Review (12/19/2016 3:33 PM CDT) Component Value Ref Test Analysis Performed Pathologis t Range Method Time At Signature Copath Patient Name: TASHA PHELAN Report MR#: [id number] Specimen #: [id number] Collected: 12/19/2016 Received: 12/22/2016 Reported: 12/22/2016 10:01 [...] 12-22-2016 @ 10:01 AM). CPT Codes: A: 78386-RNGA TESTING LAB LOCATION: [facility] [address] [place], [place] ??[address] COLLECTION SITE: Client: ??[facility] Location: ??[facility] (R) Specimen Anatomical Collection Method [...] 12/19/2016 [facility] pg/mL 10:23 PM CDT [facility] Specimen Anatomical Collection Method Collection Time Receive d Time (Source) Location / / Volume Laterality Blood specimen 12/19/2016 3:33 PM 017 3:34 (specimen) CDT PM CDT Paul Palumbo PA-C LAB - BLOOD ORDERABLES Performing Organization Address City/State/ZIP Code Phon e Number [phone] [place] [address] (ABNORMAL) Vitamin D Deficiency (12/19/2016 3:33 PM CDT) athologist Signature Vitamin D 17 (L) 20 - 75 12/21/2016 [facility] Deficiency ug/L 3:23 PM CDT [facility] [place] Comment: Season, race, dietary intake, and treatm ent affect the concentration of 77-kpyoigy-Gtnsjqt D. Values may decreas e during winter [...] Organization Address City/State/ZIP Code Phon e Number [facility] [address] [place], [place] [phone] [place] [address] (ABNORMAL) Comprehensive metabolic panel (12/19/2016 3:33 PM CDT) [facility] Method Time Signature Sodium 140 133 - 144 12/20/2016 [facility] mmol/L 12:54 PM CDT [facility] Potassium 4.2 3.4 - 5.3 12/20/2016 [facility] mmol/L 12:54 PM CDT [facility] Chloride 110 (H) 94 - 109 12/20/2016 [facility] mmol/L 12:54 PM CDT [facility] Carbon Dioxide 21 20 - 32 12/20/2016 [facility] mmol/L 12:54 PM CDT [facility] Anion Gap 9 3 - 14 12/20/2016 [place] mmol/L 12:54 PM CDT [facility] Glucose 85 70 - 99 12/20/2016 [facility] mg/dL 12:54 PM CDT [facility] Urea Nitrogen 9 7 - 30 12/20/2016 [facility] mg/dL 12:[address] [facility] [place] Creatinine 0.75 0.52 - 12/20/2016 [facility] 1.04 mg/dL 12:54 PM CDT [facility] GFR Estimate >90 >60 12/20/2016 [place] mL/min/1.7 12:54 PM CDT CLINICS m2 [facility] Comment: Non GFR Calc GFR Estimate If >90 >60 mL/min/1.7m2 12/20/2016 12:54 PM [facility] Black T [facility] Comment: GFR Calc Calcium 8.7 8.5 - 10.1 12/20/2016 12:54 PM [facility] mg/dL T [facility] Bilirubin Total 0.4 0.2 - 1.3 mg/dL 12/20/2016 12:[address] [facility] Albumin 3.9 3.4 - 5.0 g/dL 12/20/2016 12:54 PM [facility] Protein Total 7.6 6.8 - 8.8 g/dL 12/20/2016 12:54 PM F [facility] Alkaline Phosphatase 61 40 - 150 U/L 12/20/2016 1:[address] [facility] ALT 20 0 - 50 U/L 12/20/2016 12:[address] [facility] AST 15 0 - 45 U/L 12/20/2016 12:[address] [facility] Specimen Anatomical Collection Method Collection Time Receive d Time (Source) Location / / Volume Laterality Blood specimen 12/19/2016 3:33 PM 017 3:34 (specimen) CDT PM CDT Paul Palumbo PA-C LAB - BLOOD ORDERABLES Performing Organization Address City/[facility]/ZIP Code Phon e Number [facility] [address] [place] [phone] (ABNORMAL) TSH with free T4 reflex (12/19/2016 3:33 PM CDT) athologist Signature TSH 8.78 (H) 0.40 - 12/20/2016 [facility] 4.00 mU/L 1:02 PM CDT [facility] Specimen Anatomical Collection Method Collection Time Receive d Time (Source) Location / / Volume Laterality Blood specimen 12/19/2016 3:33 PM 017 3:34 (specimen) CDT PM CDT Paul Palumbo PA-C LAB - BLOOD ORDERABLES Performing Organization Address City/[facility]/ZIP Code Phon e Number [facility] [address], [place] [address] (ABNORMAL) Iron and iron binding capacity (12/19/2016 3:33 PM CDT) Patholo gist Method Time Signature Iron 10 (L) 35 - 180 12/20/2016 [place] ug/dL 12:[address] [facility] [place] Iron Binding 528 (H) 240 - 430 12/20/2016 [place] Cap ug/dL 12:[address] [facility] [place] Iron Saturation 2 (L) 15 - 46 % 12/20/2016 [place] Index 12:54 PM CDT [facility] Specimen Anatomical Collection Method Collection Time Receive d Time (Source) Location / / Volume Laterality Blood specimen 12/19/2016 3:33 PM 017 3:34 (specimen) CDT PM CDT Paul Palumbo PA-C LAB - BLOOD ORDERABLES Performing Organization Address City/[facility]/ZIP Code Phon e Number [facility] [address], [place] [phone] (ABNORMAL) Ferritin (12/19/2016 3:33 PM CDT) athologist Signature Ferritin 2 (L) 12 - 150 12/20/2016 [facility] ng/mL 12:55 PM CDT [facility] Specimen Anatomical Collection Method Collection Time Receive d Time (Source) Location / / Volume Laterality Blood specimen 12/19/2016 3:33 PM 017 3:34 (specimen) CDT PM CDT Paul Palumbo PA-C LAB - BLOOD ORDERABLES Performing Organization Address City/[facility] Code Phon e Number [facility] [address] [place] [address] (ABNORMAL) CBC with platelets (12/19/2016 3:33 PM CDT) P athologist Signature WBC 6.4 4.0 - 11.0 12/19/2016 [place] 10e9/L 3:43 PM CDT [facility] RBC Count 3.97 3.8 - 5.2 12/19/2016 [place] 10e12/L 3:43 PM CDT [facility] Hemoglobin 7.2 (L) 11.7 - 15.7 12/19/2016 [place] g/dL 3:43 PM CDT [facility] Comment: Critical Value called to and read back b y TO PAUL PALUMBO PAC ON12/19/16 1540 DA Hematocrit 25.5 (L) 35.0 - 47.0 % 12/19/2016 3:43 PM CDT [facility] MCV 64 (L) 78 - 100 fl 12/19/2016 3:43 PM CDT [facility] MCH 18.1 (L) 26.5 - 33.0 pg 12/19/2016 3:43 PM CDT FA [facility] MCHC 28.2 (L) 31.5 - 36.5 g/dL 12/19/2016 3:43 PM CDT [facility] Comment: Results confirmed by repeat mónica t RDW 17.4 (H) 10.0 - 15.0 % 12/19/2016 3:43 PM [facility] CDT [place] Platelet Count 375 150 - 450 10e9/L 12/19/2016 3:43 PM [facility] CDT [place] Specimen Anatomical Collection Method Collection Time Receive d Time (Source) Location / / Volume Laterality Blood specimen 12/19/2016 3:33 PM 017 3:34 (specimen) CDT PM CDT Paul Palumbo PA-C LAB - BLOOD ORDERABLES Performing Organization Address City/State/ZIP Code Phon e Number [facility] [address] [address] Pap imaged thin layer screen reflex to HPV if ASCUS - recommend age 25 - 29 (12/19/2016 3:05 PM CDT) Component Value Ref Test Analysis Performed At [facility] Range Method Time Signature PAP NIL COPATH Copath Report COPATH Patient Name: TASHA PHELAN MR#: [id number] Specimen #: [id number] Collected: 12/19/2016 Received: 12/22/2016 Reported: 12/23/2016 13:10 [...] MATEUSZ Rodrigez (ASCP) Processed and screened at [facility] CLINICAL HISTORY: Currently not having periods, Intra-Uterine Device, Papanicolaou Test Limitations: ??Cervical cytology is a scre ening test with limited sensitivity; regular screening is critical for cancer prevention; Pap tests are primarily effective for the diagnosis/prevention of squamous cell carcinoma, not adenoca rcinomas or other cancers. TESTING LAB LOCATION: [address] ??[phone] COLLECTION SITE: Client: ??[facility] Location: [facility] (R) Specimen (Source) Anatomical Collection Method Collection Time Re ceived Time Location / / Volume Laterality Cytologic 12/19/2016 3:05 12/22/2016 material PM CDT 10:43 AM CDT (specimen) Paul Palumbo PA-C LAB - [facility] [place] [place] Performing Organization [...] documented as of this encounter Care Teams Field Sales Representative Relationship Specialty Start Date End Date Paul Palumbo PCP - General Physician [facility] 5 09/03/21 PALiuC [address] [place], [place] [address] Paul Palumbo, PCP - Assigned PCP 01/12/15 05/11/18 PA-C [address] [place] [address] Paul Palumbo, Physician [facility] 01/31/15 [place] [address] [place], [place] [address] Paul Palumbo, Assigned PCP 01/12/15 PA-C [address] [place] [address] documented as of this encounter
--- OUTSIDE RECORDS SUMMARY | 2021-11-12 13:57 | XMS_ITS | Encounter Summary ---
:1985 Author Organization [place] Address [address] [place] [address]. [place] [address] Care Team Providers Name Role Phone Gina Bautista PA-C Primary Care Provider [phone] Gina Bautista PA-C Unavailable [phone] Gina Bautista PA-C Unavailable [phone] Gina Bautista PA-C Unavailable [phone] Encounter Details Date Type Department Care Team Description 04/26/2015 Orders Only [facility] Enc ounter for routine adult physical exam with abnormal findings; [facility] Overweight; [address] Hypothyroidism due to acquir ed atrophy of thyroid [place] [address] Social History Tobacco Use Types Packs/Day Years [...] [address] [place], [place] [address] (Wo rk) documented as of this encounter Procedures Procedure Name Priority Date/Time Associated Comments Diagnosis TSH WITH FREE T4 Routine 04/26/2015 8:26 AM Encounter for Resu lts for this REFLEX CUSTOMS ENTRY WRITER routine adult procedure are in physical exam with the resul ts abnormal finding s section. Hypothyroidism due to acquired atrophy of thyroid T4 FREE Routine 04/26/2015 8:26 AM Encounter for Results for this CUSTOMS ENTRY WRITER routine adult procedure are in physical exam with the resul ts abnormal findings section. LIPID REFLEX TO DIRECT Routine 04/26/2015 8:26 AM Encounter fo r Results for this LDL PANEL CUSTOMS ENTRY WRITER routine adult procedure are in physical exam with the resul ts abnormal findings section. COMPREHENSIVE Routine 04/26/2015 8:26 AM Encounter for Results for this METABOLIC PANEL CUSTOMS ENTRY WRITER routine adult procedure a re in physical exam with the resul ts abnormal finding s section. Overweight CBC WITH PLATELETS Routine 04/26/2015 8:26 AM Encounter for Re sults for this CUSTOMS ENTRY WRITER routine adult procedure are in physical exam with the resul ts abnormal findings section. documented in this encounter Results T4 free (04/26/2015 8:26 AM CUSTOMS ENTRY WRITER) athologist Signature T4 Free 0.98 0.76 - 1.46 [facility] ng/dL [facility] Specimen Anatomical Collection Method Collection Time Receive d Time (Source) Location / / Volume Laterality 04/26/2015 8:26 AM 6 8:27 CUSTOMS ENTRY WRITER AM CUSTOMS ENTRY WRITER Gina Bautista PA-C LAB - BLOOD ORDERABLES Performing Organization Address City/State/ZIP Code Phon e Number [facility] [address] [place] [address] (ABNORMAL) CBC with platelets (04/26/2015 8:26 AM CUSTOMS ENTRY WRITER) athologist Signature WBC 4.7 4.0 - 11.0 [place] 10e9/L [facility] RBC Count 4.41 3.8 - 5.2 [place] 10e12/L [facility] Hemoglobin 8.4 (L) 11.7 - 15.7 [place] g/dL [facility] Comment: Results confirmed by repeat mónica t Hematocrit 29.1 (L) 35.0 - 47.0 % [facility] S [place] MCV 66 (L) 78 - 100 fl [facility] [place] MCH 19.0 (L) 26.5 - 33.0 pg [facility] S [place] MCHC 28.9 (L) 31.5 - 36.5 g/dL [facility] Comment: Results confirmed by repeat mónica t RDW 16.7 (H) 10.0 - 15.0 % [facility] Platelet Count 321 150 - 450 10e9/L [facility] Specimen Anatomical Collection Method Collection Time Receive d Time (Source) Location / / Volume Laterality Blood specimen 04/26/2015 8:26 AM 016 8:27 (specimen) CUSTOMS ENTRY WRITER AM CUSTOMS ENTRY WRITER Gina Bautista PA-C LAB - BLOOD ORDERABLES Performing Organization Address City/[facility]/ZIP Code Phon e Number [facility] [address] [place], [place] [address] LIPID REFLEX TO DIRECT LDL PANEL (04/26/2015 8:26 AM CUSTOMS ENTRY WRITER) P athologist Signature Cholesterol 109 <200 mg/dL [facility] Triglycerides 70 <150 mg/dL [facility] S [facility] Comment: Fasting specimen HDL Cholesterol 54 >49 mg/dL [facility] LDL Cholesterol Calculated 41 <100 mg/dL [facility] Comment: Desirable: <100 mg/dl Non HDL Cholesterol 55 <130 mg/dL [facility] Specimen Anatomical Collection Method Collection Time Receive d Time (Source) Location / / Volume Laterality Blood specimen 04/26/2015 8:26 AM 016 8:27 (specimen) CUSTOMS ENTRY WRITER AM CUSTOMS ENTRY WRITER Gina Bautista PA-C LAB - BLOOD ORDERABLES Performing Organization Address City/[facility]/ZIP Code Phon e Number [facility] [address] [place] [address] (ABNORMAL) TSH with free T4 reflex (04/26/2015 8:26 AM CUSTOMS ENTRY WRITER) P athologist Signature TSH 7.92 (H) 0.40 - [facility] 4.00 mU/L [facility] Specimen Anatomical Collection Method Collection Time Receive d Time (Source) Location / / Volume Laterality Blood specimen 04/26/2015 8:26 AM 016 8:27 (specimen) CUSTOMS ENTRY WRITER AM CUSTOMS ENTRY WRITER Gina Bautista PA-C LAB - BLOOD ORDERABLES Performing Organization Address City/State/ZIP Code Phon e Number [facility] [address] [place] [address] (ABNORMAL) Comprehensive metabolic panel (04/26/2015 8:26 AM CUSTOMS ENTRY WRITER) [facility] gist Method Time Signature Sodium 140 133 - 144 [place] mmol/L [facility] Potassium 4.1 3.4 - 5.3 [place] mmol/L [facility] Chloride 109 94 - 109 [place] mmol/L [facility] Carbon Dioxide 23 20 - 32 [place] mmol/L [facility] Anion Gap 8 3 - 14 [place] mmol/L [facility] Glucose 87 70 - 99 [place] mg/dL [facility] Urea Nitrogen 10 7 - 30 [place] mg/dL [facility] Creatinine 0.74 0.52 - [place] 1.04 CLINICS mg/dL [facility] GFR Estimate >90 >60 [place] Non GFR Calc mL/min/1. CLINICS 7m2 [facility] GFR Estimate If >90 >60 [place] Black GFR Calc mL/min/1. CLIN ICS 7m2 [facility] Calcium 8.3 (L) 8.5 - [facility] 10.1 [facility]INICS mg/dL [facility] Bilirubin Total 0.5 0.2 - 1.3 [place] mg/dL [facility] Albumin 3.8 3.4 - 5.0 [place] g/dL [facility] Protein Total 7.4 6.8 - 8.8 [place] g/dL [facility] Alkaline 71 40 - 150 [place] Phosphatase U/L [facility] ALT 19 0 - 50 [place] U/L [facility] AST 14 0 - 45 [facility] U/L [facility] Specimen Anatomical Collection Method Collection Time Receive d Time (Source) Location / / Volume Laterality Blood specimen 04/26/2015 8:26 AM 016 8:27 (specimen) CUSTOMS ENTRY WRITER AM CUSTOMS ENTRY WRITER Gina Bautista PA-C LAB - BLOOD ORDERABLES Performing Organization Address City/State/ZIP Code Phon e Number [facility] [address] [place] [address] documented in this encounter Visit Diagnoses Diagnosis Encounter for routine adult physical exa m with abnormal findings Overweight 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 documented in this encounter Additional Health Concerns Assessment Noted Time PHQ-9 Depression Total Score: 16 04/26/2015 8:54 AM CS T documented as of this encounter Care Teams Airframe Design Engineer Relationship Specialty Start Date End Date Gina Bautista, PCP - General Physician Community Health Advisor 5 09/03/21 PA-C [id number] [place] [address] Gina Bautista, PCP - Assigned PCP 01/12/15 05/11/18 PA-C [id number] [place] [address] Gina Bautista, Physician Community Health Advisor 01/31/15 PA-C [address] [place] [address] Gina Bautista, Assigned PCP 01/12/15 PA-C [id number] [place] [address] documented as of this encounter
--- OUTSIDE RECORDS SUMMARY | 2021-11-12 13:57 | XMS_ITS | Encounter Summary ---
:1985 Author Organization [facility] Address [address] [place] [address]. [place] [address] Care Team Providers Name Role Phone Gina Bautista PA-C Primary Care Provider [phone] Gina Bautista PA-C Unavailable [phone] Gina Bautista PA-C Unavailable [phone] Gina Bautista PA-C Unavailable [phone] Encounter Details Date Type Department Care Team Description 05/22/2017 Office Visit [facility] Lisa Lopez LP Anxiety (Primary Dx) Services [address] [address] [phone] Social History Tobacco Use Types Packs/Day Years [...] Team Description 01/07/2022 Virtual Visit Endocrinology Natalya Jaen MD [address] [place] [address] (Wo rk) documented as of this encounter Visit Diagnoses Diagnosis Anxiety - Primary Anxiety state, unspecified documented in this encounter Additional Health Concerns Assessment Noted Time PHQ-9 Depression Total Score: 10 05/09/2017 8:01 AM CS T documented as of this encounter Care Teams Hand Suture Winder Relationship Specialty Start Date End Date Gina Bautista, PCP - General Physician Database Architect 5 09/03/21 D[place]ES [address] [place] [address] Gina Bautista, PCP - Assigned PCP 01/12/15 05/11/18 CELEST[place] [address] [place], [place] [address] Gina Bautista, Physician Database Architect 01/31/15 D[place]ES [address] [place] [address] Gina Bautista, Assigned PCP 01/12/15 D[place]ES [address] [place] [address] documented as of this encounter
--- OUTSIDE RECORDS SUMMARY | 2021-11-12 13:57 | XMS_ITS | Encounter Summary ---
:1985 Author Organization [facility] Address [address] [place] [address]. [place] [address] Care Team Providers Name Role Phone Gina Bautista PA-C Primary Care Provider [phone] Oestrfrances, Gina Vance PA-C Unavailable [phone] OestrGina daniels PA-C Unavailable [phone] Oestrfrances, Gina Vance PA-C Unavailable [phone] Encounter Details Date Type Department Care Team Description 06/11/2017 Hospital Pathology [facility] Results MD Brynn LIBRARY SERVICES ASSISTANT SPECIALIS TS [address] [id number] (Wo rk) Social History Tobacco Use Types [...] [address] [place], [place] [address] (Wo rk) documented as of this encounter Procedures Procedure Name Priority Date/Time Associated Diagnosis Comme [facility] SURGICAL PATHOLOGY Routine 06/11/2017 11:30 AM Re sults for this EXAM CDT procedure are i n the results section. documented in this encounter Results Surgical pathology exam (06/11/2017 11:30 AM CDT) Component Value Ref Test Analysis Performed At [facility] Range Method Time Signature Copath Report Patient Name: CRALEY JO MR#: [id number] Specimen #: [id number] Collected: 06/11/2017 Received: 06/11/2017 Reported: 06/12/2017 14:08 [...] par ts or translucent vesicles are identified. Retail Pharmacist sections are submitted in 2 blocks. ??The rem ainder of the specimen is handled per [facility] POC protocol. (Dictated by: ASHLEY Martinez 06/11/2017 03:17 PM) MICROSCOPIC: Microscopic examination is performed. CPT Codes: A: 92960-OP4, SO TESTING LAB LOCATION: [facility] [address] [place] [address] ??[phone] COLLECTION SITE: Client: [facility] Location: [id number] (F) Specimen Anatomical Collection Method [...] documented as of this encounter Care Teams Clearance Cutter Relationship Specialty Start Date End Date Gina Bautista, PCP - General Physician Train System Operator 5 09/03/21 PA-C [address] [place] [address] Gina Bautista, PCP - Assigned PCP 01/12/15 05/11/18 PA-C 03863 [place], [place] [id number] Gina Bautista, Physician Train System Operator 01/31/15 PA-C 449[address] [place] [address] Gina Bautista, Assigned PCP 01/12/15 PA-C 30392 [place] [address] documented as of this encounter
--- OUTSIDE RECORDS SUMMARY | 2021-11-12 13:57 | XMS_ITS | Encounter Summary ---
:1985 Author Organization [facility] Address [address] [place] [address]. [place] [address] Care Team Providers Name Role Phone Gina Bautista PA-C Primary Care Provider [phone] Michele, Gina Vance PA-C Unavailable [phone] Gina Bautista PA-C Unavailable [phone] Michele, Gina Vance PA-C Unavailable [phone] Encounter Details Date Type Department Care Team Description 11/12/2017 [facility] Lisa Lopez LP Documentation Services [address] [phone] Social History Tobacco Use Types Packs/Day Years [...] [address] [place] [address] (Wo rk) documented as of this encounter Visit Diagnoses Not on filedocumented in this encounter Additional Health Concerns Assessment Noted Time PHQ-9 Depression Total Score: 10 05/09/2017 8:01 AM CS T documented as of this encounter Care Teams Gullet Slitter Relationship Specialty Start Date End Date Gina Bautista, PCP - General Physician Can Sealer 5 09/03/21 PA-C [address] [place] [address] Gina Bautista, PCP - Assigned PCP 01/12/15 05/11/18 PA-C [address] [place] [address] Gina Bautista, Physician Can Sealer 01/31/15 PA-C 99546 [place] [address] Gina Bautista, Assigned PCP 01/12/15 PA-C 19014 [place] [address] documented as of this encounter
--- OUTSIDE RECORDS SUMMARY | 2021-11-12 13:57 | XMS_ITS | Encounter Summary ---
:1985 Author Organization [facility] Address [address] [place] [address] Care Team Providers Name Role Phone Gina Bautista PA-C Primary Care Provider [phone] Gina Bautista PA-C Unavailable [phone] Encounter Details Date Type Department Care Team [...] Natalya Jean MD [address] [facility] [address] [place], [place] [address] (Wo rk) documented as of this encounter [...] documented as of this encounter Care Teams Locomotive Pipe Fitter Relationship Specialty Start Date End Date Gina Bautista PA-C PCP - General Physician House Furnishings Supervisor 01/31/15 09/03/21 [id number] [place] [id number] Gina Bautista PA-C Physician House Furnishings Supervisor 01/31/15 [address] [place] [address] documented as of this encounter
--- OUTSIDE RECORDS SUMMARY | 2021-11-12 13:57 | XMS_ITS | Encounter Summary ---
:1985 Author Organization [facility] Address [address] [place] [address] Care Team Providers Name Role Phone Gina Bautista PA-C Primary Care Provider [phone] Gina Bautista PA-C Unavailable [phone] Vidya Espinal APRN [facility] Unavailable [phone] [facility], [facility] Unavailable Reason for Referral Consultation (Urgent: 3-5 Days) - Pending Review Specialty Diagnoses / Procedures Referred By Contact Refer red To Contact Endocrinology, Diagnoses Hypothyroidism System, Provider Not Diabetes, and In Metabolism Referral ID Status Reason Start Date Expiration Date Visits V isits Requested Authorized [id number] Pending 2021 2022 1 1 Review Scheduling [...] Endocrinology Natalya Jean MD [address] [facility] [address] [place] [address] (Wo rk) Scheduled Referrals Name Type Priority Associated Diagnoses Order S chedule Adult Endocrinology Referral Urgent: 3-5 Days Hypothyroidism Ex pected: Sales Expert Referral 2 (Approximate), Expires: 2022 documented as of this encounter Visit Diagnoses Diagnosis Hypothyroidism - Primary Unspecified hypothyroidism documented in this encounter Additional Health Concerns Assessment Noted Time PHQ-9 Depression Total Score: 10 05/09/2017 8:01 AM CS T documented as of this encounter Care Teams Aviation Electronics Technician Relationship Specialty Start Date End Date Gina Bautista, PCP - General Physician Inside Sales Trainer 5 09/03/21 PALiuC [address] [place] [address] Gina Bautista, Physician Inside Sales Trainer 01/31/15 D[place] [address] [place] [address] Vidya Espinal APRN CNM Bench Worker Apprentice 08/21/[address] [place] [address] [facility], [facility] 08/21/[address] [address] documented as of this encounter
--- OUTSIDE RECORDS SUMMARY | 2021-11-12 13:58 | XMS_ITS | Encounter Summary ---
:1985 Author Organization [facility] Address [address] [place] [address]. [place] [address] Care Team Providers Name Role Phone Unavailable Primary Care Provider Unavailable Encounter Details Date Type Department Care Team Description 05/23/2005 Historic Results INTERFACED REPORT Aleksandra Carrizales MD [address] [phone] (Wo rk) Social History Tobacco Use Types Packs/Day Years Used Date Never Assessed Sex Assigned at Date Recorded Not on file documented as of this encounter Plan of Treatment Upcoming Encounters Date Type Specialty Care Team Description 01/07/2022 Virtual Visit Endocrinology Natalya Jean MD [address] [place], [place] [address] (Wo rk) documented as of this encounter Procedures Procedure Name Priority Date/Time Associated Comments Diagnosis WET PREPARATION STAT 05/23/2005 9:45 AM Result s for this SUPERVISOR FURNACE PROCESS procedure are i n the results section. NEISSERIA GONORRHOEAE STAT 05/23/2005 9:45 AM Results for this PCR SUPERVISOR FURNACE PROCESS procedure are i n the results section. CHLAMYDIA TRACHOMATIS STAT 05/23/2005 9:45 AM Results for this PCR SUPERVISOR FURNACE PROCESS procedure are i n the results section. HCG QUALITATIVE URINE STAT 05/23/2005 9:20 AM Results for this SUPERVISOR FURNACE PROCESS procedure are i n the results section. ROUTINE UA WITH STAT 05/23/2005 9:20 AM Result s for this MICROSCOPIC SUPERVISOR FURNACE PROCESS procedure are i n the results section. HEMOGRAM DIFFERENTIAL STAT 05/23/2005 7:35 AM Results for this AND PLATELET SUPERVISOR FURNACE PROCESS procedure are i n the results section. BASIC METABOLIC PANEL STAT 05/23/2005 7:35 AM Results for this SUPERVISOR FURNACE PROCESS procedure are i n the results section. documented in this encounter Results Chlamydia trachomatis PCR (05/23/2005 9:45 AM SUPERVISOR FURNACE PROCESS) Component Value Ref Test Analysis Performed At [facility] Range Method Time Signature Specimen Cervical MISYS Description Chlamydia Negative for C. MISYS Trachomatis PCR trachomatis rRNA by hydroelectric powerplant supervisor mediated amplification. Comment: A negative result by hydroelectric powerplant supervisor medi ated amplification does not preclude the presence of C. trachomatis infection be cause results are dependent on proper and adequate collection, absence of inh ibitors, and sufficient rRNA to be detected. Specimen Anatomical Collection Method Collection Time Receive d Time (Source) Location / / Volume Laterality 05/23/2005 9:45 AM 6 SUPERVISOR FURNACE PROCESS 10:02 AM SUPERVISOR FURNACE PROCESS [facility] - MICRO GENERAL ORDERABL ES Performing Organization Address [facility]/ZIP Code Phon e Number MISYS Neisseria gonorrhoeae PCR (05/23/2005 9:45 AM SUPERVISOR FURNACE PROCESS) [facility] Method Time Signature Specimen Cervical MISYS Descrip N Gonorrhea Negative for N. MISYS PCR gonorrhoeae rRNA by hydroelectric powerplant supervisor mediated amplification. Comment: A negative result by hydroelectric powerplant supervisor medi ated amplification does not preclude the presence of N. gonorrhoeae infection be cause results are dependent on proper and adequate collection, absence of inh ibitors, and sufficient rRNA to be detected. Specimen Anatomical Collection Method Collection Time Receive d Time (Source) Location / / Volume Laterality 05/23/2005 9:45 AM 6 SUPERVISOR FURNACE PROCESS 10:02 AM SUPERVISOR FURNACE PROCESS [facility] - MICRO GENERAL ORDERABL ES Performing Organization Address City/State/ZIP Code Phon e Number MISYS Wet prep (05/23/2005 9:45 AM SUPERVISOR FURNACE PROCESS) [facility] Method Time Signature Specimen Vagina MISYS Description Micro Report FINAL MISYS Status [id number] Wet Prep Few PMN'S MISYS seen Comment: No Trichomonas seen No yeast seen No clue cells seen Specimen Anatomical Collection Method Collection Time Receive d Time (Source) Location / / Volume Laterality 05/23/2005 9:45 AM 6 SUPERVISOR FURNACE PROCESS 10:02 AM SUPERVISOR FURNACE PROCESS [facility] - MICRO GENERAL ORDERABL ES Performing Organization Address City/State/ZIP Code Phon e Number MISYS (ABNORMAL) Routine UA with microscopic (05/23/2005 9:20 AM SUPERVISOR FURNACE PROCESS) [facility] gist Method Time Signature Source Midstream MISYS Urine Color Urine Yellow MISYS Appearance Urine Clear MISYS Glucose Urine Negative NEG mg/dL MISYS Bilirubin Urine Negative NEG MISYS Ketones Urine Negative NEG mg/dL MISYS Specific Upperco 1.016 1.003 - MISYS Urine 1.035 Blood [...] Volume Laterality 05/23/2005 9:20 AM 6 7:48 SUPERVISOR FURNACE PROCESS AM SUPERVISOR FURNACE PROCESS [facility] - URINE ORDERABLES Performing Organization Address [facility] Phon e Number MISYS HCG qualitative urine (05/23/2005 9:20 AM SUPERVISOR FURNACE PROCESS) athologist Signature HCG Qual Urine Negative NEG MISYS Specimen Anatomical Collection Method Collection Time Receive d Time (Source) Location / / Volume Laterality 05/23/2005 9:20 AM 6 7:48 SUPERVISOR FURNACE PROCESS AM SUPERVISOR FURNACE PROCESS [facility] - URINE ORDERABLES Performing Organization Address [facility] Phon e Number MISYS (ABNORMAL) Hemogram differential and platelet (05/23/2005 7:35 AM SUPERVISOR FURNACE PROCESS) [facility] gist Method Time Signature MCV 84 [...] Volume Laterality 05/23/2005 7:35 AM 6 7:48 SUPERVISOR FURNACE PROCESS AM SUPERVISOR FURNACE PROCESS [facility] - BLOOD ORDERABLES Performing Organization Address City/State/ZIP Code Phon e Number MISYS Basic metabolic panel (05/23/2005 7:35 AM SUPERVISOR FURNACE PROCESS) P athologist Signature Sodium 141 133 - [...] Volume Laterality 05/23/2005 7:35 AM 6 7:48 SUPERVISOR FURNACE PROCESS AM SUPERVISOR FURNACE PROCESS [facility] - BLOOD ORDERABLES Performing Organization Address City/State/ZIP Code Phon e Number MISYS documented in this encounter Visit Diagnoses Not on filedocumented in this encounter
--- OUTSIDE RECORDS SUMMARY | 2021-11-12 13:58 | XMS_ITS | Encounter Summary ---
:1985 Author Organization [facility] Address [address] [place] [address] Care Team Providers Name Role Phone Unavailable Primary Care Provider Unavailable Encounter Details Date Type Department Care Team Description 05/23/2005 Emergency room [facility] JED [place]IREZ [address] [place] [address] (Wo rk) Social History Tobacco Use Types Packs/Day Years Used Date Never Assessed Sex Assigned at Date Recorded Not on file documented as of this encounter Progress Notes Interface, Switch Maker - 05/24/2005 10:20 PM METAL WELDER FINAL CHIEF COMPLAINT: Left lower quadrant pain. [...] home. Tylenol No. 3 for discomfort, Motrin [id number]. Follow up with primary care physician in 3-5 days, clear liquids x8 hours and advance diet as tolerated. Return to emergency department if symptoms get worse. Electronically signed on 05/24/2005 22:19 by GLORY KRAFT MD MT: [id number] Name: CARLEY CHAN MRN: [id number] Account: [id number] : 1985 Visit Date: 05/23/2005 Document: [id number] cc: [facility] WELDER Interface, Switch Maker - 05/24/2005 3:26 PM METAL WELDER PRELIMINARY CHIEF COMPLAINT: Left lower quadrant pain. [...] home. Tylenol No. 3 for discomfort, Motrin [id number]. Follow up with primary care physician in 3-5 days, clear liquids x8 hours and advance diet as tolerated. Return to emergency department if symptoms get worse. MD Khloe DUNAWAY: 05/23/2005 MT: [id number] Name: CARLEY CHAN Account: [id number] : 1985 Visit Date: 05/23/2005 Document: [id number] cc: [facility] WELDER documented in this encounter Plan of Treatment Upcoming Encounters Date Type Specialty Care Team Description 01/07/2022 Virtual Visit Endocrinology Natalya Jean MD [address] [place] [address] (Wo rk) documented as of this encounter Visit Diagnoses Not on filedocumented in this encounter
--- OUTSIDE RECORDS SUMMARY | 2021-11-12 13:58 | XMS_ITS | Encounter Summary ---
:1985 Author Organization [facility] Address [address] [place] [address] Care Team Providers Name Role Phone Unavailable Primary Care Provider Unavailable Encounter Details Date Type Department Care Team Description 05/23/2005 Results [facility] Results [facility] [address] [place], [place] [phone] (Wo rk) Social History Tobacco Use Types Packs/Day Years Used Date Never Assessed Sex Assigned at Date Recorded Not on file documented as of this encounter Plan of Treatment Upcoming Encounters Date Type Specialty Care Team Description 01/07/2022 Virtual Visit Endocrinology Natalya Jean MD [address] [place] [address] (Wo rk) documented as of this encounter Procedures Procedure Name Priority Date/Time Associated Diagnosis Comme [facility] US PELVIC Routine 05/23/2005 10:02 AM Results for this NON-OB, COMPLETE CARAMEL CUTTER MACHINE procedure a re in the results section. documented in this encounter Results SONO PELVIS COMPLETE (05/23/2005 10:02 AM CARAMEL CUTTER MACHINE) Specimen (Source) Anatomical Collection Method Collection Time Re ceived Time Location / / Volume Laterality 05/23/2005 10:02 AM CARAMEL CUTTER MACHINE Impressions RADIOLOGY RESULTS - 05/26/2005 10:39 AM CARAMEL CUTTER MACHINE PELVIC ULTRASOUND WITH TRANSVAGINAL - ?? TECHNIQUE: [...]
--- OUTSIDE RECORDS SUMMARY | 2021-11-12 13:58 | XMS_ITS | Encounter Summary ---
:1985 Author Organization [facility] Address [address] [place] [address] Care Team Providers Name Role Phone Unavailable Primary Care Provider Unavailable Encounter Details Date Type Department Care Team Description 09/30/2005 Results Only [facility] [place] [address] (Wo rk) Social History Tobacco Use Types Packs/Day Years Used Date Never Assessed Sex Assigned at Date Recorded Not on file documented as of this encounter Plan of Treatment Upcoming Encounters Date Type Specialty Care Team Description 01/07/2022 Virtual Visit Endocrinology Natalya Jean MD [address] [place] [address] (Wo rk) documented as of this encounter Procedures Procedure Name Priority Date/Time Associated Diagnosis Comme [facility] X-RAY FOOT Routine 09/30/2005 10:59 AM Results [...]
--- OUTSIDE RECORDS SUMMARY | 2021-11-12 13:58 | XMS_ITS | Encounter Summary ---
:1985 Author Organization [facility] Address [address] [place] [address]. [place] [address] Care Team Providers Name Role Phone Gina Bautista PA-C Primary Care Provider [phone] Gina Bautista PA-C Unavailable [phone] Gina Bautista PA-C Unavailable [phone] Gina Bautista PA-C Unavailable [phone] Reason for Visit Reason Comments Cough x 3-4 days Derm Problem x 1 day Encounter Details Date Type Department Care Team Description 01/31/2015 Office Visit [facility] Gina Bautista litis and abscess of leg (Primary Dx); Clinic Jigna Vance PA-C Upper respiratory tract infection, unspe cified upper respiratory infection [address] [address] [place] [facility] [place] [place] [phone] Social History Tobacco Use Types Packs/Day Years Used Date Never Smoker Smokeless Tobacco: Never Used Alcohol Use Standard Drinks/Week Comments Yes 0 (1 standard drink = 0.6 oz pure alcoho l) Sex Assigned at Date Recorded Not on file documented as of this encounter Last Filed Vital Signs Vital Sign Reading Time Taken Comments Blood Pressure 108/56 01/31/2015 3:14 PM TURBINATED BONE GRINDER Pulse 82 01/31/2015 3:14 PM TURBINATED BONE GRINDER Temperature 36.7 ??C (98.1 ??F) 01/31/2015 3:14 PM TURBINATED BONE GRINDER Respiratory Rate 18 01/31/2015 3:14 PM TURBINATED BONE GRINDER Oxygen Saturation 99% 01/31/2015 3:14 PM TURBINATED BONE GRINDER Inhaled Oxygen Concentration - - Weight 82.4 kg (181 lb 9.6 oz) 01/31/2015 3:14 PM TURBINATED BONE GRINDER Height 167.6 cm (5' 6) 01/31/2015 3:14 PM TURBINATED BONE GRINDER Body Mass Index 29.31 01/31/2015 3:14 PM TURBINATED BONE GRINDER documented in this encounter Progress Notes Gina [...] care. Gina Bautista PA-C [facility] INATED BONE GRINDER documented in this encounter Nursing Notes Monica [...] phone number for results from this visit [phone] Marianne Tony CMA (AAMA) 01/31/2015 3:16 PM INATED BONE GRINDER documented in this encounter Plan of Treatment Upcoming Encounters Date Type Specialty Care Team Description 01/07/2022 Virtual Visit Endocrinology Natalya Jean MD [address] [place] [address] (Wo rk) documented as of this encounter Visit Diagnoses Diagnosis Cellulitis and abscess of leg - Primary Cellulitis and abscess of leg, except fo ot Upper respiratory tract infection, unspe cified upper respiratory infection documented in this encounter Additional Health Concerns Assessment Noted Time PHQ-9 Depression Total Score: 13 02/01/2015 7:29 AM CS T documented as of this encounter Care Teams Business Info Consultant Relationship Specialty Start Date End Date Gina Bautista PCP - General Physician Group Product Manager 5 09/03/21 DOLORES [address] [place] [address] Gina Bautista, PCP - Assigned PCP 01/12/15 05/11/18 PA-C 27[address] [place] [address] Gina Bautista, Physician Group Product Manager 01/31/15 PA-C [address] [place] [address] Gina Bautista, Assigned PCP 01/12/15 PA-C 33204 [place] [address] documented as of this encounter
--- OUTSIDE RECORDS SUMMARY | 2021-11-12 13:58 | XMS_ITS | Encounter Summary ---
:1985 Author Organization [place] Address [address] [place] [address]. [place] [address] Care Team Providers Name Role Phone Gina Palumbo PA-C Primary Care Provider [phone] Gina Palumbo PA-C Unavailable [phone] Gina Palumbo PA-C Unavailable [phone] Gina Palumbo PA-C Unavailable [phone] Reason for Visit Reason Comments Physical Annual Physical with PAP Encounter Details Date Type Department Care Team Description 04/25/[address] 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; AVEN[address] M[address] MYERS Adjustment disorder with dep ressed mood; M[place]A Myers [address] Iron deficiency anemia, unspecified iron deficiency [id number] [...] Comments Blood Pressure 126/62 04/25/2015 1:02 PM FOUNDATION STAGE TEACHER Pulse 80 04/25/2015 1:02 PM FOUNDATION STAGE TEACHER Temperature 36.6 ??C (97.9 ??F) 04/25/2015 1:02 PM FOUNDATION STAGE TEACHER Respiratory Rate 16 04/25/2015 1:02 PM FOUNDATION STAGE TEACHER Oxygen Saturation 100% 04/25/2015 1:02 PM FOUNDATION STAGE TEACHER Inhaled Oxygen Concentration - - Weight 82.1 kg (181 lb) 04/25/2015 1:02 PM FOUNDATION STAGE TEACHER Height 167 cm (5' 5.75) 04/25/2015 1:02 PM FOUNDATION STAGE TEACHER Body Mass Index 29.44 04/25/2015 1:02 PM FOUNDATION STAGE TEACHER documented in this encounter Patient Instructions Patient [...] months for an exam and cleaning. ?? DATION STAGE TEACHER documented in this encounter Progress Notes Gina [...] Maxwell and colleagues,with an educational kenia from [employer].) 04/25/2015 01/31/2015 Q1: Little interest or pleasure [...] LDL, TRIG, CHOLHDLRATIO, NHDL in the last 86559 hours. Reviewed orders with patient. Reviewed health maintenance and updated orders accordingly - Yes Mammo Decision Support: Mammogram not appropriate for this patient based on age. Last Mammo:No results found. History of abnormal Pap smear: NO - age 21-29 PAP every 3 years recommended All Histories reviewed and updated in [facility]. 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 Patient Active [...] Preventive Guidelines Dietary Guidelines for Americans, 2010 [employer] Gina Palumbo PA-C [facility] DATION STAGE TEACHER documented in this encounter Nursing Notes Monica [...] phone number for results from this visit [phone] OK to leave message Marianne Tony CMA (AAMA) 04/25/2015 1:03 PM DATION STAGE TEACHER documented in this encounter Miscellaneous Notes Addendum Note - Gina Palumbo PA-C - 04/27/2015 8:25 AM FOUNDATION STAGE TEACHER Addended by: GINA PALUMBO on: 04/27/2015 08:25 AM Modules accepted: Orders DATION STAGE TEACHER documented in this encounter Plan of Treatment Upcoming Encounters Date Type Specialty Care Team Description 01/07/2022 Virtual Visit Endocrinology Natalya Jean MD [address] [place] [address] (Wo rk) documented as of this encounter Procedures Procedure Name Priority Date/Time Associated Comments Diagnosis UA MACROSCOPIC WITH Routine 04/25/2015 12:44 Encounter for Res ults for this REFLEX TO MICROSCOPIC PM FOUNDATION STAGE TEACHER routine adult priscilla caballero are in AND CULTURE physical exam with the resul ts abnormal findings section. documented in this encounter Results (ABNORMAL) Iron and iron binding capacity (04/27/2015 11:50 AM FOUNDATION STAGE TEACHER) [facility] Method Time Signature Iron 13 (L) 35 - 180 [place] ug/dL [facility] Iron Binding 619 (H) 240 - 430 [place] Cap ug/dL [facility] Iron Saturation 2 (L) 15 - 46 % [place] Index [facility] Specimen Anatomical Collection Method Collection Time Receive d Time (Source) Location / / Volume Laterality Blood specimen 04/27/2015 11:50 6 (specimen) AM FOUNDATION STAGE TEACHER 11:51 AM FOUNDATION STAGE TEACHER Gina Palumbo PA-C LAB - BLOOD ORDERABLES Performing Organization Address City/[facility]/ZIP Code Phon e Number [facility] [address] [place] [phone] (ABNORMAL) Ferritin (04/27/2015 11:50 AM FOUNDATION STAGE TEACHER) athologist Signature Ferritin 2 (L) 12 - 150 [facility] ng/mL [facility] Specimen Anatomical Collection Method Collection Time Receive d Time (Source) Location / / Volume Laterality Blood specimen 04/27/2015 11:50 6 (specimen) AM FOUNDATION STAGE TEACHER 11:51 AM FOUNDATION STAGE TEACHER Gina Palumbo PA-C LAB - BLOOD ORDERABLES Performing Organization Address City/State/ZIP Code Phon e Number [facility] [address] [place] [phone] (ABNORMAL) TSH with free T4 reflex (04/26/2015 8:26 AM FOUNDATION STAGE TEACHER) P athologist Signature TSH 7.92 (H) 0.40 - [facility] 4.00 mU/L [facility] Specimen Anatomical Collection Method Collection Time Receive d Time (Source) Location / / Volume Laterality Blood specimen 04/26/2015 8:26 AM 016 8:27 (specimen) FOUNDATION STAGE TEACHER AM FOUNDATION STAGE TEACHER Gina Palumbo PA-C LAB - BLOOD ORDERABLES Performing Organization Address City/State/ZIP Code Phon e Number [facility] [address] [place] [address] (ABNORMAL) Comprehensive metabolic panel (04/26/2015 8:26 AM FOUNDATION STAGE TEACHER) [facility] gist Method Time Signature Sodium 140 133 - 144 [place] mmol/L [facility] Potassium 4.1 3.4 - 5.3 [place] mmol/L [facility] Chloride 109 94 - 109 [place] mmol/L [facility] Carbon Dioxide 23 20 - 32 [place] mmol/L [facility] Anion Gap 8 3 - 14 [place] mmol/L [facility] Glucose 87 70 - 99 [place] mg/dL [facility] Urea Nitrogen 10 7 - 30 [place] mg/dL [facility] Creatinine 0.74 0.52 - [facility] 1.04 CLINICS mg/dL [facility] GFR Estimate >90 >60 [place] Non GFR Calc mL/min/1. CLINICS 7m2 [facility] GFR Estimate If >90 >60 [place] Black GFR Calc mL/min/1. CLIN ICS 7m2 [facility] Calcium 8.3 (L) 8.5 - [facility] 10.1 CLINICS mg/dL [facility] Bilirubin Total 0.5 0.2 - 1.3 [place] mg/dL [facility] Albumin 3.8 3.4 - 5.0 [place] g/dL [facility] Protein Total 7.4 6.8 - 8.8 [place] g/dL [facility] Alkaline 71 40 - 150 [place] Phosphatase U/L [facility] ALT 19 0 - 50 [place] U/L [facility] AST 14 0 - 45 [place] U/L [facility] Specimen Anatomical Collection Method Collection Time Receive d Time (Source) Location / / Volume Laterality Blood specimen 04/26/2015 8:26 AM 016 8:27 (specimen) FOUNDATION STAGE TEACHER AM FOUNDATION STAGE TEACHER Gina Palumbo PA-C LAB - BLOOD ORDERABLES Performing Organization Address City/[facility]/ZIP [facility] Phon e Number [facility] [address] [place] [address] (ABNORMAL) CBC with platelets (04/26/2015 8:26 AM FOUNDATION STAGE TEACHER) athologist Signature WBC 4.7 4.0 - 11.0 [place] 10e9/L [facility] RBC Count 4.41 3.8 - 5.2 [place] 10e12/L [facility] Hemoglobin 8.4 (L) 11.7 - 15.7 [place] g/dL [facility] Comment: Results confirmed by repeat mónica t Hematocrit 29.1 (L) 35.0 - 47.0 % [facility] S [place] MCV 66 (L) 78 - 100 fl [facility] [place] MCH 19.0 (L) 26.5 - 33.0 pg [facility] [place] MCHC 28.9 (L) 31.5 - 36.5 g/dL [place] [facility] I[facility] Comment: Results confirmed by repeat mónica t RDW 16.7 (H) 10.0 - 15.0 % [facility] Platelet Count 321 150 - 450 10e9/L [facility] Specimen Anatomical Collection Method Collection Time Receive d Time (Source) Location / / Volume Laterality Blood specimen 04/26/2015 8:26 AM 016 8:27 (specimen) FOUNDATION STAGE TEACHER AM FOUNDATION STAGE TEACHER Gina Palumbo PA-C LAB - BLOOD ORDERABLES Performing Organization Address City/[facility]/ZIP Code Phon e Number [facility] [address] [place], [place] [address] LIPID REFLEX TO DIRECT LDL PANEL (04/26/2015 8:26 AM FOUNDATION STAGE TEACHER) P athologist Signature Cholesterol 109 <200 mg/dL [facility] Triglycerides 70 <150 mg/dL [facility] Comment: Fasting specimen HDL Cholesterol 54 >49 mg/dL [place] [facility]INI CS [facility] LDL Cholesterol Calculated 41 <100 mg/dL [facility] Comment: Desirable: <100 mg/dl Non HDL Cholesterol 55 <130 mg/dL [facility] Specimen Anatomical Collection Method Collection Time Receive d Time (Source) Location / / Volume Laterality Blood specimen 04/26/2015 8:26 AM 016 8:27 (specimen) FOUNDATION STAGE TEACHER AM FOUNDATION STAGE TEACHER Gina Palumbo PA-C LAB - BLOOD ORDERABLES Performing Organization Address City/[facility]/ZIP Code Phon e Number [facility] [address] [place] [address] UA reflex to Microscopic and Culture (04/25/2015 12:44 PM FOUNDATION STAGE TEACHER) [facility] gist Method Time Signature Color Urine Yellow [facility] [place] Appearance Urine Clear [place] [facility] Glucose Urine Negative NEG mg/dL [place] [facility] Bilirubin Urine Negative NEG [place] [facility] Ketones Urine Negative NEG mg/dL [facility] [place] Specific [place] 1.025 1.003 - [place] Urine 1.035 [facility] Blood Urine Negative NEG [facility] [place] pH Urine 5.5 5.0 - 7.0 [place] pH [facility] Protein Albumin Negative NEG mg/dL [place] Urine [facility] Urobilinogen 0.2 0.2 - 1.0 [place] Urine EU/dL [facility] Nitrite Urine Negative NEG [place] [facility] Leukocyte Negative NEG [place] Esterase Urine [facility] Source Midstream [place] Urine [facility] Specimen Anatomical Collection Method Collection Time Receive d Time (Source) Location / / Volume Laterality Urine specimen 04/25/2015 12:44 6 (specimen) PM FOUNDATION STAGE TEACHER 12:45 PM FOUNDATION STAGE TEACHER Gina Palumbo PA-C LAB - URINE ORDERABLES Performing Organization Address City/[facility]/ZIP Code Phon e Number [facility] [address] [place], [place] [address] documented in this encounter [...] documented as of this encounter Care Teams Feed Mixer Helper Relationship Specialty Start Date End Date Gina Palumbo, PCP - General Physician Light Technician 5 09/03/21 PA-C [id number] [place] [address] Gina Palumbo, PCP - Assigned PCP 01/12/15 05/11/18 PA-C 35438 NANC[address] MYERS, [place] [id number] Gina Palumbo, Physician Light Technician 01/31/15 PA-C 21590 M[place] DUVALL [id number] Gina Palumbo, Assigned PCP 01/12/15 PA-C 82111 MORA[address] DUVALL [id number] documented as of this encounter
--- OUTSIDE RECORDS SUMMARY | 2021-11-12 13:58 | XMS_ITS | Encounter Summary ---
:1985 Author Organization [place] Address [address] [place] [address]. [place] [address] Care Team Providers Name Role Phone Gina Bautista PA-C Primary Care Provider [phone] Gina Bautista PA-C Unavailable [phone] Gina Bautista PA-C Unavailable [phone] Gina Bautista PA-C Unavailable [phone] Reason for Visit Reason Comments Panel Management Needs PAP Encounter Details Date Type Department Care Team Description 03/13/2015 [facility] Jigna Vance PA-C (Needs PAP ) [address] [phone] [id number] Social History Tobacco Use Types Packs/Day Years [...] for provider review: None Marianne Tony CMA (AAHI) 03/13/2015 3:48 PM ICIDE APPLICATOR documented in this encounter Plan of Treatment Upcoming Encounters Date Type Specialty Care Team Description 01/07/2022 Virtual Visit Endocrinology Natalya Jean MD [address] [place] [address] (Wo rk) documented as of this encounter Visit Diagnoses Not on filedocumented in this encounter Additional Health Concerns Assessment Noted Time PHQ-9 Depression Total Score: 13 02/01/2015 7:29 AM CS T documented as of this encounter Care Teams Cover Seamer Relationship Specialty Start Date End Date Gina Bautista, PCP - General Physician Slitter Scorer Cut Off Operator 5 09/03/21 PA-C 54107 [place] [address] [address] Gina Bautista, PCP - Assigned PCP 01/12/15 05/11/18 PA-C 17279 [place] [address] Gina Bautista, Physician Slitter Scorer Cut Off Operator 01/31/15 PA-C 47833 [place]UV[place] [address] Gina Bautista, Assigned PCP 01/12/15 PA-C 87818 [place] DUVALL [address] documented as of this encounter
--- OUTSIDE RECORDS SUMMARY | 2021-11-12 13:58 | XMS_ITS | Encounter Summary ---
:1985 Author Organization [place] Address [address] [place] [address]. [place] [address] Care Team Providers Name Role Phone Unavailable Primary Care Provider Unavailable Encounter Details Date Type Department Care Team Description 07/21/2004 Historic Crime Prevention Worker INTERFACED REPORT Ilana Levy Social History Tobacco Use Types Packs/Day Years Used Date Never Assessed Sex Assigned at Date Recorded Not on file documented as of this encounter Progress Notes Interface, Crime Prevention Worker - 02/12/2011 3:18 AM SURVEYING CREW RODMAN : 89 CHIEF COMPLAINT: Ankle and knee [...] EPIDEMIOLOGIC HISTORY: Patient attends school. They visited [place] in May 2004. PHYSICAL EXAMINATION: VITAL SIGNS: [...] appointment. EM#[id number] KELLIE LEVY MD [place]: Document: [id number] CC: KELLIE LEVY MD [place], [place] Name: MR#: CARLEY CHAN -23 EMERGENCY ROOM ENCOUNTER Page 2 of 2 LCN: ERC DSC: 07/21/2004 [place], [place] Name: MR#: CARLEY CHAN [id number] : Admit Date: Account #: 1985 07/21/2004 [id number] Doctor: KELLIE LEVY MD EMERGENCY ROOM ENCOUNTER Page 1 of 2 EYING CREW RODMAN documented in this encounter Plan of Treatment Upcoming Encounters Date Type Specialty Care Team Description 01/07/2022 Virtual Visit Endocrinology Natalya Jean MD [address] [place] [address] (Wo rk) documented as of this encounter Visit Diagnoses Not on filedocumented in this encounter
[2021-11-12 16:47] LABS: Free T4 Free Thyroxine* 1.33 ng/dL (0.70-1.85)
== END 2021-11-12 15:26 | disposition home or self-care (01) ==
PROVIDERS: PCP Internal Medicine; Visit Provider Obstetrics & Gynecology
DX: E03.9 Hypothyroidism, unspecified (principal); Z34.90 Encounter for supervision of normal pregnancy, unspecified, unspecified trimester
CPT/HCPCS: 84439; 84443

== ENCOUNTER 2021-11-26 12:56 | Outpatient (CLI) | payer BC, SELFPAY ==
--- OUTSIDE RECORDS SUMMARY | 2021-11-26 12:58 | XMS_ITS | Clinical Summary ---
:1985 Author Organization [email or web address] [facility] [place] [address] Care Team Providers Name Role Phone Pcp, [...] = 9 in March; Hgb 10.3 at [facility] before transfer History of delivery 02/02/2018 High-risk [...] if not delivered. 7. contractions with mild online marketing specialist al cervical change, admitted to [facility] and received steroids x 2. It's a [...] 2017 4 08/04/13 34w0d M Vag Y TIFFAINE 3 2012 2 2011 1 12/02/10 36w0d [...] 01/16/2023 01/17/2020, 01/17/2020, 12/19/2016 [facility] Tetanus booster 04/05/2028 04/05/2018, 03/09/2012 Tdap Completed 04/05/2018, 03/09/2012 Results Not on filefrom Last 3 Months Advance Directives Latest Code Status on File Code Status Date Activated Date Inactivated Comments Full Code 05/25/2018 11:18 PM 05/28/2018 2:46 PM Full Code 05/03/2018 7:52 PM 05/04/2018 5:01 PM Full Code 07/04/2013 11:25 AM 07/04/2013 4:53 PM Care Teams Owner [employer] Relationship Specialty Start Date End Date Pcp, No PCP - General 01/15/19 .
--- OUTSIDE RECORDS SUMMARY | 2021-11-26 12:58 | XMS_ITS | Encounter Summary ---
:1985 Author Organization [place] Address [address] [place] [address] Care Team Providers Name Role Phone Gina Bautista PA-C Primary Care Provider [phone] Gina Bautista PA-C Unavailable [phone] Encounter Details Date Type Department Care Team [...] Natalya Jean MD [address] [facility] [address] [place], [place] [address] (Wo rk) documented as of this encounter [...] documented as of this encounter Care Teams Derrick Builder Relationship Specialty Start Date End Date Gina Bautista PA-C PCP - General Physician Casting And Pasting Supervisor 01/31/15 09/03/21 [address]60 MOR[address]IM[address] DUVALL [id number] Gina Bautista PA-C Physician Casting And Pasting Supervisor 01/31/15 [address]4441 M[address] DUVALL [address] documented as of this encounter
--- OUTSIDE RECORDS SUMMARY | 2021-11-26 12:58 | XMS_ITS | Encounter Summary ---
:1985 Author Organization [facility] Address [address] [place] [address]. [place] [address] Care Team Providers Name Role Phone Gina Bautista PA-C Primary Care Provider [phone] Gina Bautista PA-C Unavailable [phone] Gina Bautista PA-C Unavailable [phone] Gina Bautista PA-C Unavailable [phone] Encounter Details Date Type Department Care Team Description 05/22/2017 Office Visit [facility] Anxiety (Primary Dx) Services [address] [phone] Social History Tobacco Use Types Packs/Day Years [...] [address] [place] [address] (Wo rk) documented as of this encounter Visit Diagnoses Diagnosis Anxiety - Primary Anxiety state, unspecified documented in this encounter Additional Health Concerns Assessment Noted Time PHQ-9 Depression Total Score: 10 05/09/2017 8:01 AM CS T documented as of this encounter Care Teams Watch And Clock Repairer Relationship Specialty Start Date End Date Gina Bautista, PCP - General Physician Greek Professor 5 09/03/21 DOLORES [address] [place] DUVALL [address] Gina Bautista, PCP - Assigned PCP 01/12/15 05/11/18 [place] [address] NANCY MYERS, [place] [address] Gina Bautista, Physician Greek Professor 01/31/15 DOLORES [address] [place] DUVALL [address] Gina Bautista, Assigned PCP 01/12/15 DOLORES [address] MOR[place]IM[place] DUVALL [address] documented as of this encounter
--- OUTSIDE RECORDS SUMMARY | 2021-11-26 12:58 | XMS_ITS | Encounter Summary ---
:[address] [place] [address]. [place] [address] Care Team Providers Name Role Phone Gina Bautista PA-C Primary Care Provider [phone] Oestrfrances, Gina Vance PA-C Unavailable [phone] OestrGina daniels PA-C Unavailable [phone] Oestrfrances, Gina Vance PA-C Unavailable [phone] Encounter Details Date Type Department Care Team Description 06/11/2017 Hospital Pathology [facility] Results MD Brynn BRONZE PLATER SPECIALIS TS [address] [address] (Wo rk) Social History Tobacco Use Types [...] [address] [place], [place] [address] (Wo rk) documented as of this encounter Procedures Procedure Name Priority Date/Time Associated Diagnosis Comme [facility] SURGICAL PATHOLOGY Routine 06/11/2017 11:30 AM Re sults for this EXAM CDT procedure are i n the results section. documented in this encounter Results Surgical pathology exam (06/11/2017 11:30 AM CDT) Component Value Ref Test Analysis Performed At [facility] Range Method Time Signature Copath Report Patient Name: CARLEY JO MR#: [id number] Specimen #: [id number] Collected: 06/11/2017 Received: 06/11/2017 Reported: 06/12/2017 14:08 [...] par ts or translucent vesicles are identified. Infantry Unit Leader sections are submitted in 2 blocks. ??The rem ainder of the specimen is handled per [facility] protocol. (Dictated by: ASHLEY Martinez 06/11/2017 03:17 PM) MICROSCOPIC: Microscopic examination is performed. CPT Codes: A: 84351-SG2, SO TESTING LAB LOCATION: [facility] [address] [place] [address] ??[phone] COLLECTION SITE: Client: [facility] Location: [id number] (F) Specimen Anatomical Collection [...] documented as of this encounter Care Teams Truck And Transport Mechanic Relationship Specialty Start Date End Date Gina Bautista, PCP - General Physician Patient Services Assistant 5 09/03/21 PA-C 39122 [place] [address] Gina Bautista, PCP - Assigned PCP 01/12/15 05/11/18 PA-C 06947 [place]ANC[place], [place] [phone] Gina Bautista, Physician Patient Services Assistant 01/31/15 PA-C 633[address] [place] [address] Gina Bautista, Assigned PCP 01/12/15 PA-C [address] [place] [address] documented as of this encounter
--- OUTSIDE RECORDS SUMMARY | 2021-11-26 12:58 | XMS_ITS | Encounter Summary ---
:1985 Author Organization [place] Address [address] [place] [address]. [place] [address] Care Team Providers Name Role Phone Gina Bautista PA-C Primary Care Provider [phone] Gina Bautista PA-C Unavailable [phone] Gina Bautista PA-C Unavailable [phone] Gina Bautista PA-C Unavailable [phone] Reason for Visit Reason Comments Sinus Problem Encounter Details Date Type Department Care Team Description 07/27/2015 Office Visit [facility] Gina Bautista Acute recurrent Clinic Lucia Vance PA-C maxillary sinusitis [address] (Primary Dx) [place] [address] [phone] Social History Tobacco Use Types Packs/Day Years [...] She has been treated twice by in [place] with Amoxicillin without relief No fever, very [...] the plan of care. Gina Bautista PA-C [facility] documented in this encounter Nursing Notes Monica [...] phone number for results from this visit [phone] OK to leave message Marianne Tony CMA (AAMA) 07/27/2015 8:58 AM documented in this encounter Plan of Treatment Upcoming Encounters Date Type Specialty Care Team Description 01/07/2022 Virtual Visit Endocrinology Natalya Jean MD [address] [place] [address] (Wo rk) documented as of this encounter Visit Diagnoses Diagnosis Acute recurrent maxillary sinusitis - Pr imary Acute maxillary sinusitis documented in this encounter Additional Health Concerns Assessment Noted Time PHQ-9 Depression Total Score: 16 04/26/2015 8:54 AM CS T documented as of this encounter Care Teams Roof Tile Layer Relationship Specialty Start Date End Date Gina Bautista, PCP - General Physician Block Tester 5 09/03/21 PA-C [address] [place] [address] Gina Bautista, PCP - Assigned PCP 01/12/15 05/11/18 PA-C [address]24 [place] [address] Gina Bautista, Physician Block Tester 01/31/15 PA-C [address] [place] [address] Gina Bautista, Assigned PCP 01/12/15 PA-C [address]35 [place] [address] documented as of this encounter
--- OUTSIDE RECORDS SUMMARY | 2021-11-26 12:58 | XMS_ITS | Encounter Summary ---
:1985 Author Organization [place] Address [address] [place] [address]. 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 TSH WITH FREE T4 Routine 04/10/2017 2:35 PM Hypothyroidism due to Results for this REFLEX TRIM CARPENTER acquired atrophy of procedur e are in thyroid the results section. T4 FREE Routine 04/10/2017 2:35 PM Vitamin D deficiency R esults for this TRIM CARPENTER procedure are i n the results section. documented in this encounter Results T4 free (04/10/2017 2:35 PM TRIM CARPENTER) athologist Signature T4 Free 0.94 0.76 - 1.46 04/12/2017 [facility] ng/dL 1:41 PM [facility] Specimen Anatomical Collection Method Collection Time Receive d Time (Source) Location / / Volume Laterality 04/10/2017 2:35 PM 8 2:36 TRIM CARPENTER PM TRIM CARPENTER Gina Bautista PA-C LAB - BLOOD ORDERABLES Performing Organization Address City/[facility]/ZIP Code Phon e Number [facility] [address] [place] [address] (ABNORMAL) TSH with free T4 reflex FUTURE 2mo (04/10/2017 2:35 PM TRIM CARPENTER) athologist [facility] TSH 10.56 (H) 0.40 - 04/12/2017 [facility] 4.00 mU/L 1:28 PM [facility] Specimen Anatomical Collection Method Collection Time Receive d Time (Source) Location / / Volume Laterality Blood specimen 04/10/2017 2:35 PM 018 2:36 (specimen) TRIM CARPENTER PM TRIM CARPENTER Gina Bautista PA-C LAB - BLOOD ORDERABLES Performing Organization Address City/[facility]/ZIP Code Phon e Number [facility] [address] [place] [address] (ABNORMAL) Vitamin D Deficiency (04/10/2017 2:35 PM TRIM CARPENTER) athologist Signature Vitamin D 13 (L) 20 - 75 04/11/2017 [facility] Deficiency ug/L 11:46 AM TRIM CARPENTER ID MEDICAL [facility] Comment: Season, race, dietary intake, and treatm ent affect the concentration of 90-sdknzkh-[place] D. 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 documented in this encounter Additional Health Concerns Assessment Noted Time PHQ-9 Depression Total Score: 9 02/19/2017 2:07 PM TRIM CARPENTER documented as of this encounter Care Teams Post Office Clerk Relationship Specialty Start Date End Date Gina Bautista, PCP - General Physician Party Director 5 09/03/21 PA-C [address] [place] [id number] Gina Bautista, PCP - Assigned PCP 01/12/15 05/11/18 PA-C [address] [place] [id number] Gina Bautista, Physician Party Director 01/31/15 PA-C [address]97 [address] [address] Gina Bautista, Assigned PCP 01/12/15 PA-C 85250 [place] [address] documented as of this encounter
--- OUTSIDE RECORDS SUMMARY | 2021-11-26 12:58 | XMS_ITS | Clinical Summary ---
:1985 Author Organization [facility] Address [address] [place] [address] Care Team Providers Name Role Phone Gina Bautista PA-C Unavailable [phone] Vidya Espinal APRN CNM Unavailable [phone] [facility] Unavailable Marissa Jean MD Unavailable Violette Bolden [...] symptoms greater than 10 days fluticasone (FLONASE) [place] 1-2 sprays 1 Bottle 11 02/22/2017 Active 50 MCG/ACT into both nostrils sprayIndications: daily Acute sinusitis with symptoms greater than 10 days vitamin D Take 1 capsule 12 capsule 0 04/14/2017 Act [place] (ERGOCALCIFEROL) (50,000 [place]) [place] [address] UNIT mouth once a week capsuleIndications: Lab [...] Specialty Care Team Description 09/04/2021 Telephone Endocrinology Marissa Jean MD Ap pointment from Last 3 Months Immunizations Name Administration [...] Comments Blood Pressure 108/62 02/22/2017 11:59 AM RECORDER GRAVITY PROSPECTING Pulse 61 02/22/2017 11:59 AM RECORDER GRAVITY PROSPECTING Temperature 36.7 ??C (98.1 ??F) 02/22/2017 11:59 AM RECORDER GRAVITY PROSPECTING Respiratory Rate 15 12/19/2016 2:53 PM CDT Oxygen Saturation 100% 02/22/2017 11:59 AM RECORDER GRAVITY PROSPECTING Inhaled Oxygen Concentration - - Weight 79.3 kg (174 lb 12.8 oz) 01/27/2017 1:05 PM RECORDER GRAVITY PROSPECTING Height 167.6 cm (5' 6) 12/19/2016 2:53 PM CDT Body Mass Index 28.21 12/19/2016 2:53 PM CDT Plan of Treatment Upcoming Encounters Date Type Specialty Care Team Description 01/07/2022 Virtual Visit Endocrinology Natalya Jean MD [address] [place] [address] (Wo rk) Health Maintenance Due Date Last [...] e / Group Dates MEDICA MEDICA CHOICE [id number] 2016-Pres [phone] [place] [address] [place] [id number] 2021-Pres [phone] [address] Indemnity 1 ent [phone] [place] [address] [employer] [id number] 2016-Pres [address] PPO BEHAVIORAL ent [phone] [place] [address] ([place]) [place] [address] [facility] 1985 [address] [place] [place] [address] Care Teams Biomedical Engineering Internship Relationship Specialty Start Date End Date Violette Bolden CNM PCP - General 09/04/21 [facility] [address] [place] [address] Gina Bautista, Physician Drapery Seamstress 01/31/15 PA-C [address] [place], [place] [id number] Vidya Espinal APRN CNM Thermoplastic Technician 08/21/[address] [place] [id number] [facility] 08/21/21 [facility] [address] [place] [address] Marissa Jean MD Hospitalist Endocrinology, 09/04/21 [address] [place] Diabetes, and [address] Metabolism [place], [place] [id number]
--- OUTSIDE RECORDS SUMMARY | 2021-11-26 12:58 | XMS_ITS | Encounter Summary ---
:1985 Author Organization [place] Address [address] [place] [address]. [place] [address] Care Team Providers Name Role Phone Gina Bautista PA-C Primary Care Provider [phone] Gina Bautista PA-C Unavailable [phone] Gina Bautista PA-C Unavailable [phone] Gina Bautista PA-C Unavailable [phone] Reason for Visit Reason Comments Medication Refill Encounter Details Date Type Department Care Team Description 03/22/2017 Refill [facility] Lyle Bautista Medication Refill Lucia Vance PA-C [address] [address] [address] [place] [phone] [place] [address] [phone] (Wo rk) Social History Tobacco Use Types Packs/Day Years Used Date Never Smoker Smokeless Tobacco: Never Used Alcohol Use Standard Drinks/Week Comments Yes 0 (1 standard drink = 0.6 oz pure alcoho l) Sex Assigned at Date Recorded Not on file documented as of this encounter Miscellaneous Notes Telephone Encounter - Violette Archer - 04/06/2017 3:23 PM CST Appointment scheduled Y ASSISTANT Telephone Encounter - Panchito Gandhi - 04/03/2017 10:43 AM CST 2nd attempt, LM to call back. Needs non-fasting lab only apt. Panchito Gandhi CMA (AAIA) Y ASSISTANT Telephone Encounter - Donya Damon - 03/26/2017 11:50 AM CST 1st attempt LVM to call back to make an appt Y ASSISTANT Telephone Encounter - Yvette Negrete RN - 03/25/2017 12:18 PM STUDY ASSISTANT Medication is being filled for 1 time refill only due to: Patient needs labs recheck on Vitamin D level. Call to schedule lab only appointment, future order previously placed. Kim Negrete RN Y ASSISTANT Telephone Encounter - Kaye Gr - 03/23/2017 9:36 AM CST vitamin D (ERGOCALCIFEROL) [address]55 UNIT capsule Last Written Prescription Date: 12/22/2016 Last Fill Quantity: 12, # refills: 0 Last Office Visit: 02/22/2017 Future Office visit: Next 5 appointments (look out 90 days) Apr 24, 2017 2:00 PM STUDY ASSISTANT Return Visit with Lisa Lopez LP [facility] ([facility]) [address] [facility] [address] May 08, 2017 2:00 PM STUDY ASSISTANT Return Visit with Lisa Lopez LP [facility] ([facility]) [address] [facility] [address] May 22, 2017 2:00 PM CDT Return Visit with Lisa Lopez LP [facility] ([facility]) [address] [facility] [phone] Routing refill request to provider for review/approval because: Drug not on the FMG, UMP or Health refill protocol or controlled substance Y ASSISTANT documented in this encounter Plan of Treatment Upcoming Encounters Date Type Specialty Care Team Description 01/07/2022 Virtual Visit Endocrinology Natalya Jean MD [address] [place] [address] (Wo rk) documented as of this encounter Visit Diagnoses Diagnosis Vitamin D deficiency Unspecified vitamin D deficiency documented in this encounter Additional Health Concerns Assessment Noted Time PHQ-9 Depression Total Score: 9 02/19/2017 2:07 PM STUDY ASSISTANT documented as of this encounter Care Teams Digital Account Director Relationship Specialty Start Date End Date Gina Bautista, PCP - General Physician Retort Forker 5 09/03/21 PA-C [address] [place] [address] Gina Bautista, PCP - Assigned PCP 01/12/15 05/11/18 PA-C [address] [place] [address] Gina Bautista, Physician Retort Forker 01/31/15 PA-C 31730 [place] [address] Gina Bautista, Assigned PCP 01/12/15 PA-C [address]77[address] [place] [address] documented as of this encounter
--- OUTSIDE RECORDS SUMMARY | 2021-11-26 12:58 | XMS_ITS | Encounter Summary ---
:1985 Author Organization [facility] Address [address] [place] [address]. [place] [address] Care Team Providers Name Role Phone Gina Bautista PA-C Primary Care Provider [phone] Gina Bautista PA-C Unavailable [phone] Gina Bautista PA-C Unavailable [phone] Gina Bautista PA-C Unavailable [phone] Encounter Details Date Type Department Care Team Description 05/08/[address] [facility] Lisa Lopez LP Anxiety (Primary Dx) Services [address] [phone] Social History Tobacco Use Types Packs/Day Years [...] her ex spouse. At work, has received [facility] and a perk. But has lots of [...] plan. Lisa Lopez LP February 19, 2017 E ANIMAL HUSBANDRY TECHNICIAN documented in this encounter Plan of Treatment Upcoming Encounters Date Type Specialty Care Team Description 01/07/2022 Virtual Visit Endocrinology Natalya Jean MD [address] [place] [address] (Wo rk) documented as of this encounter Visit Diagnoses Diagnosis Anxiety - Primary Anxiety state, unspecified documented in this encounter Additional Health Concerns Assessment Noted Time PHQ-9 Depression Total Score: 10 05/09/2017 8:01 AM CS T documented as of this encounter Care Teams Cruise Consultant Relationship Specialty Start Date End Date Gina Bautista, PCP - General Physician Loading Machine Operator 5 09/03/21 PA-C [address] [place] [address] Gina Bautista, PCP - Assigned PCP 01/12/15 05/11/18 PA-C [address] [place] [address] Gina Bautista, Physician Loading Machine Operator 01/31/15 PA-C [address] [place] [address] Gina Bautista, Assigned PCP 01/12/15 PA-C [address]19 [place] [address] documented as of this encounter
--- OUTSIDE RECORDS SUMMARY | 2021-11-26 12:58 | XMS_ITS | Encounter Summary ---
:1985 Author Organization [place] Address [address] [place] [address]. [place] [address] Care Team Providers Name Role Phone Gina Bautista PA-C Primary Care Provider [phone] Gina Bautista PA-C Unavailable [phone] Gina Bautista PA-C Unavailable [phone] Gina Bautista PA-C Unavailable [phone] Reason for Visit Mental Health Outpatient (Routine) - Closed Specialty Diagnoses / Procedures Referred By Contact Refer red To Contact Gina Bautista [facility] JANETTE BERNAL [facility] [id number] [place] [id number] [place] [address] [place] [address] Phone: Fax: Referral ID Status Reason Start Date Expiration Date Visits Requ ested Visits Authorized [facility] Closed 01/14/2017 01/14/2018 1 52 Encounter Details Date Type Department Care Team Description 02/19/2017 Office Visit [facility] Lisa Lopez LP Anxiety (Primary Dx) Services [place] [id number] [facility] [address] [place] [address] Social History Tobacco Use [...] decree) Talks to relatives ( who are plant maintenance technician) to get concrete info. Explored TIP skills. [...] plan. Lisa Lopez LP February 19, 2017 ON CLEANER documented in this encounter Plan of Treatment Upcoming Encounters Date Type Specialty Care Team Description 01/07/2022 Virtual Visit Endocrinology Natalya Jean MD [address] [place] [address] (Wo rk) documented as of this encounter Visit Diagnoses Diagnosis Anxiety - Primary Anxiety state, unspecified documented in this encounter Additional Health Concerns Assessment Noted Time PHQ-9 Depression Total Score: 9 02/19/2017 2:07 PM CARBON CLEANER documented as of this encounter Care Teams Joiner Relationship Specialty Start Date End Date Gina Bautista, PCP - General Physician Fiscal Specialist 5 09/03/21 PA-C 94907 [address] [address] Gina Bautista, PCP - Assigned PCP 01/12/15 05/11/18 PA-C 82577 [address] [address] Gina Bautista, Physician Fiscal Specialist 01/31/15 PA-C 61897 [address] [address] Gina Bautista, Assigned PCP 01/12/15 PA-C 75717 [address] [address] documented as of this encounter
--- OUTSIDE RECORDS SUMMARY | 2021-11-26 12:58 | XMS_ITS | Encounter Summary ---
:1985 Author Organization [place] Address [address] [place] [address] Care Team Providers Name Role Phone Gina Bautista PA-C Primary Care Provider [phone] Gina Bautista PA-C Unavailable [phone] Vidya Espinal APRN [facility] Unavailable [phone] [facility] Unavailable Reason for Referral Consultation (Urgent: 3-5 Days) - Pending Review Specialty Diagnoses / Procedures Referred By Contact Refer red To Contact Endocrinology, Diagnoses Hypothyroidism System, Provider Not Diabetes, and In Metabolism Referral ID Status Reason Start Date Expiration Date Visits V isits Requested Authorized [id number] Pending 2021 2022 1 1 Review Scheduling [...] Endocrinology Natalya Jean MD [address] [facility] [address] [place] [address] (Wo rk) Scheduled Referrals Name Type Priority Associated Diagnoses Order S chedule Adult Endocrinology Referral Urgent: 3-5 Days Hypothyroidism Ex pected: Manager Decision Support Referral 2 (Approximate), Expires: 2022 documented as of this encounter Visit Diagnoses Diagnosis Hypothyroidism - Primary Unspecified hypothyroidism documented in this encounter Additional Health Concerns Assessment Noted Time PHQ-9 Depression Total Score: 10 05/09/2017 8:01 AM CS T documented as of this encounter Care Teams Control Room Helper Relationship Specialty Start Date End Date Gina Bautista, PCP - General Physician Back Filler Operator 5 09/03/21 [place] [address] [place] [address] Gina Bautista, Physician Back Filler Operator 01/31/15 [place] [address] [place] [address] Vidya Espinal APRN CNM Field Sales Specialist 08/21/[address] [place] [address] [address] [facility] 08/21/[address] [address] documented as of this encounter
--- OUTSIDE RECORDS SUMMARY | 2021-11-26 12:58 | XMS_ITS | Encounter Summary ---
:1985 Author Organization [place] Address [address] [place] [address]. [place] [address] Care Team Providers Name Role Phone Gina Bautista PA-C Primary Care Provider [phone] Oestrfrances, Gina Vance PA-C Unavailable [phone] Oestrfrances, Gina Vance PA-C Unavailable [phone] Oestrfrances, Gina Vance PA-C Unavailable [phone] Reason for Visit Reason Comments IUD Encounter Details Date Type Department Care Team Description 01/27/2017 Office Visit [facility] Nadine Monreal Encou nter for IUD removal (Primary Dx); [facility] Encounter for preconception consultation [place] [address] [place] [address] [facility] [address] [place], [place] (Work) [address] [phone] Social History Tobacco Use Types Packs/Day Years Used Date Never Smoker Smokeless Tobacco: Never Used Alcohol Use Standard Drinks/Week Comments Yes 0 (1 standard drink = 0.6 oz pure alcoho l) Sex Assigned at Date Recorded Not on file documented as of this encounter Last Filed Vital Signs Vital Sign Reading Time Taken Comments Blood Pressure 100/60 01/27/2017 1:05 PM INSTRUMENT MAKER AND REPAIRER Pulse - - Temperature - - Respiratory Rate - - Oxygen Saturation - - Inhaled Oxygen Concentration - - Weight 79.3 kg (174 lb 12.8 oz) 01/27/2017 1:05 PM INSTRUMENT MAKER AND REPAIRER Height - - Body Mass Index 28.21 [...] muscle every 30 days vitamin D (ERGOCALCIFEROL) 64979 UNIT capsule Take 1 capsule (50,000 Units) [...] with hematology as needed. Nadine Monreal MD [facility] RUMENT MAKER AND REPAIRER documented in this encounter Nursing Notes Nataliia [...] 12.8 oz (79.3 kg). Medication Reconciliation: complete RUMENT MAKER AND REPAIRER documented in this encounter Plan of Treatment Upcoming Encounters Date Type Specialty Care Team Description 01/07/2022 Virtual Visit Endocrinology Natalya Jean MD [address] [place] [address] (Wo rk) documented as of this encounter Procedures Procedure Name Priority Date/Time Associated Diagnosis Comme nts HC REMOVE INTRAUTERINE Routine 01/27/2017 1:33 PM Encounter fo r IUD DEVICE INSTRUMENT MAKER AND REPAIRER removal documented in this encounter Visit Diagnoses Diagnosis Encounter for IUD removal - Primary Encounter for removal of intrauterine co ntraceptive device Encounter for preconception consultation documented in this encounter Additional Health Concerns Assessment Noted Time PHQ-9 Depression Total Score: 7 12/19/2016 3:37 PM CDT documented as of this encounter Care Teams Choreography Director Relationship Specialty Start Date End Date Gina Bautista, PCP - General Physician Director Search 5 09/03/21 PALiuC [address] [address] [address] Gina Bautista, PCP - Assigned PCP 01/12/15 05/11/18 PA-C 73108 [place], [place] [address] Gina Bautista, Physician Director Search 01/31/15 PA-C 07795 [address] [address] Gina Bautista, Assigned PCP 01/12/15 PA-C 97457 [address] [address] documented as of this encounter
--- OUTSIDE RECORDS SUMMARY | 2021-11-26 12:58 | XMS_ITS | Encounter Summary ---
:1985 Author Organization [facility] Address [address] [place] [address]. [place] [address] Care Team Providers Name Role Phone Gina Bautista PA-C Primary Care Provider [phone] Gina Bautista PA-C Unavailable [phone] Vidya Espinal APRN [facility] Unavailable [phone] Clinic, [facility] Unavailable Encounter Details Date Type Department Care Team Description 08/08/2021 Medical Correspondence [facility] Scan, ENDOCRINOLOGY ORDER Health Info [facility] Non-Provider [facility] [address] [place] [address] Social History Tobacco Use Types Packs/Day [...] [address] [place], [place] [address] (Wo rk) documented as of this encounter Visit Diagnoses Not on filedocumented in this encounter Additional Health Concerns Assessment Noted Time PHQ-9 Depression Total Score: 10 05/09/2017 8:01 AM CS T documented as of this encounter Care Teams Sharepoint Application Architect Relationship Specialty Start Date End Date Gina Bautista, PCP - General Physician Barrelhead Inspector 5 09/03/21 [place] [address] [address] [id number] Gina Bautista, Physician Barrelhead Inspector 01/31/15 [place] [address] [address] [id number] Vidya Espinal APRN CNM Director Of Vocational Guidance 08/21/21 [place] [address] [id number] [facility] 08/21/[address] [address] documented as of this encounter
--- OUTSIDE RECORDS SUMMARY | 2021-11-26 12:58 | XMS_ITS | Encounter Summary ---
:1985 Author Organization [place] Address [address] [place] [address]. [place] [address] Care Team Providers Name Role Phone Gina Bautista PA-C Primary Care Provider [phone] Gina Bautista PA-C Unavailable [phone] Vidya Espinal APRN [facility] Unavailable [phone] Clinic, [facility] Unavailable Encounter Details Date Type Department Care Team Description 2021 Medical Correspondence [facility] Scan, ENDOCRINOLOGY Health Info Mgmt Non-Provider REFERRAL [address] [address] Social History Tobacco Use Types [...] [address] [place] [address] (Wo rk) documented as of this encounter Visit Diagnoses Not on filedocumented in this encounter Additional Health Concerns Assessment Noted Time PHQ-9 Depression Total Score: 10 05/09/2017 8:01 AM CS T documented as of this encounter Care Teams Manager Highway Relationship Specialty Start Date End Date Gina Bautista, PCP - General Physician Paper Mill Manager 5 09/03/21 DOLOR[place] [address] [address] [id number] Gina Bautista, Physician Paper Mill Manager 01/31/15 D[place] [id number] [address] [id number] Vidya Espinal APRN CNM Leach Cell Operator 08/21/21 [facility] [address] [id number] [facility], [facility] 08/21/[address] [address] documented as of this encounter
--- OUTSIDE RECORDS SUMMARY | 2021-11-26 12:58 | XMS_ITS | Encounter Summary ---
:1985 Author Organization [place] Address [address] [place] [address]. [place] [address] Care Team Providers Name Role Phone Gina Bautista PA-C Primary Care Provider [phone] Gina Bautista PA-C Unavailable [phone] Gina Bautista PA-C Unavailable [phone] Gina Bautista PA-C Unavailable [phone] Reason for Visit Reason Comments Urgent Care URI Colds x3-4- facial pain and pressure, sinus pressure, MAK, achy lymphnofe, L ear pain- unable to hear f rom L ear. Encounter Details Date Type Department Care Team Description 02/22/2017 Office Visit [facility] Johny Puga, Acute sinusitis with Urgent Care Ferny gage MD symptoms greater than [address] [address] [address] [address] Jason 10 days (Primary Dx) [place] [address] [phone] Social History Tobacco Use Types Packs/Day Years Used Date Never Smoker Smokeless Tobacco: Never Used Alcohol Use Standard Drinks/Week Comments Yes 0 (1 standard drink = 0.6 oz pure alcoho l) Sex Assigned at Date Recorded Not on file documented as of this encounter Last Filed Vital Signs Vital Sign Reading Time Taken Comments Blood Pressure 108/62 02/22/2017 11:59 AM TRANSFER TABLE OPERATOR HELPER Pulse 61 02/22/2017 11:59 AM TRANSFER TABLE OPERATOR HELPER Temperature 36.7 ??C (98.1 ??F) 02/22/2017 11:59 AM TRANSFER TABLE OPERATOR HELPER Respiratory Rate - - Oxygen Saturation 100% 02/22/2017 11:59 AM TRANSFER TABLE OPERATOR HELPER Inhaled Oxygen Concentration - - Weight - [...] have suggested that the patient Push fluids. SFER TABLE OPERATOR HELPER documented in this encounter Nursing Notes Nury [...] Medication Reconciliation: complete Nury Nation CMA (AASANDRA) SFER TABLE OPERATOR HELPER documented in this encounter Plan of Treatment Upcoming Encounters Date Type Specialty Care Team Description 01/07/2022 Virtual Visit Endocrinology Natalya Jean MD [address] [place] [address] (Wo rk) documented as of this encounter Visit Diagnoses Diagnosis Acute sinusitis with symptoms greater th an 10 days - Primary Acute sinusitis, unspecified documented in this encounter Additional Health Concerns Assessment Noted Time PHQ-9 Depression Total Score: 9 02/19/2017 2:07 PM TRANSFER TABLE OPERATOR HELPER documented as of this encounter Care Teams Autocad Detailer Relationship Specialty Start Date End Date Gina Bautista, PCP - General Physician Pharmacist'S Aide 5 09/03/21 PA-C 20595 [address] [address] Gina Bautista, PCP - Assigned PCP 01/12/15 05/11/18 PA-C 21840 [address] [address] Gina Bautista, Physician Pharmacist'S Aide 01/31/15 PA-C 80134 [address]ALL [address] Gina Bautista, Assigned PCP 01/12/15 PA-C 22730 [address] [address] documented as of this encounter
--- OUTSIDE RECORDS SUMMARY | 2021-11-26 12:58 | XMS_ITS | Encounter Summary ---
:1985 Author Organization [place] Address [address] [place] [address]. [place] [address] Care Team Providers Name Role Phone Gina Bautista PA-C Primary Care Provider [phone] Gina Bautista PA-C Unavailable [phone] Gina Bautista PA-C Unavailable [phone] Gina Bautista PA-C Unavailable [phone] Encounter Details Date Type Department Care Team Description 04/24/2017 Office Visit [facility] Lisa Lopez LP Anxiety (Primary Dx) Services [address] [phone] Social History Tobacco Use Types Packs/Day Years [...] plan. Lisa Lopez LP February 19, 2017 HER AIDE documented in this encounter Plan of Treatment Upcoming Encounters Date Type Specialty Care Team Description 01/07/2022 Virtual Visit Endocrinology Natalya Jean MD [address] [place] [address] (Wo rk) documented as of this encounter Visit Diagnoses Diagnosis Anxiety - Primary Anxiety state, unspecified documented in this encounter Additional Health Concerns Assessment Noted Time PHQ-9 Depression Total Score: 10 04/25/2017 8:01 AM CS T documented as of this encounter Care Teams Press Operator Carbon Blocks Relationship Specialty Start Date End Date Gina Bautista, PCP - General Physician Finance Consultant 5 09/03/21 DOLOR[place] [address] [address]UVALL [id number] Gina Bautista, PCP - Assigned PCP 01/12/15 05/11/18 PA-C 345[address] [place] [address] Gina Bautista, Physician Finance Consultant 01/31/15 PA-C 10682 [place] [address] Gina Bautista, Assigned PCP 01/12/15 PA-C [address] [place] [address] documented as of this encounter
--- OUTSIDE RECORDS SUMMARY | 2021-11-26 12:58 | XMS_ITS | Encounter Summary ---
:1985 Author Organization [place] Address [address] [place] [address]. [place] [address] Care Team Providers Name Role Phone Gina Bautista PA-C Primary Care Provider [phone] Michele, Gina Vance PA-C Unavailable [phone] Gina Bautista PA-C Unavailable [phone] Michele, Gina Vance PA-C Unavailable [phone] Encounter Details Date Type Department Care Team Description 11/12/2017 [facility] Lisa Lopez LP Documentation Services [address] [phone] Social History Tobacco Use Types Packs/Day Years [...] [address] [place] [address] (Wo rk) documented as of this encounter Visit Diagnoses Not on filedocumented in this encounter Additional Health Concerns Assessment Noted Time PHQ-9 Depression Total Score: 10 05/09/2017 8:01 AM CS T documented as of this encounter Care Teams Spring Manufacturing Set Up Technician Relationship Specialty Start Date End Date Gina Bautista, PCP - General Physician Fine Wire Drawer 5 09/03/21 PA-C [address] [place] [address] Gina Bautista, PCP - Assigned PCP 01/12/15 05/11/18 PA-C [address] [place] [address] Gina Bautista, Physician Fine Wire Drawer 01/31/15 PA-C 58198 [address] [address] Gina Bautista, Assigned PCP 01/12/15 PA-C 32118 [address]UVALL [address] documented as of this encounter
--- OUTSIDE RECORDS SUMMARY | 2021-11-26 12:58 | XMS_ITS | Encounter Summary ---
:1985 Author Organization [place] Address [address] [place] [address]. [place] [address] Care Team Providers Name Role Phone Gina Bautista PA-C Primary Care Provider [phone] Gina Bautista PA-C Unavailable [phone] Gina Bautista PA-C Unavailable [phone] Gina Bautista PA-C Unavailable [phone] Reason for Visit Reason Onset Date Comments Refill Request 04/14/2017 Encounter Details Date Type Department Care Team Description 04/14/[address] [facility] Lyle Bautista Refill Request Lucia Vance PA-C [address] [address] [place] [phone] [place] [address] [phone] (Wo rk) Social History Tobacco Use Types [...] in 6-8 weeks. Panchito Gandhi CMA (AAMA) Telephone Encounter - Gina Bautista PA-C - 04/14/2017 12:48 PM CSO Lab orders futured and rx sent to pharmacy. Please notify patient should schedule lab only visit in 6-8 weeks, will check TSH and Vit D. 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 Vitamin D deficiency Unspecified vitamin D deficiency documented in this encounter Additional Health Concerns Assessment Noted Time PHQ-9 Depression Total Score: 9 02/19/2017 2:07 PM CSO documented as of this encounter Care Teams Manager Club Relationship Specialty Start Date End Date Gina Bautista, PCP - General Physician Circus Supervisor 5 09/03/21 PALiuC [address] [address] [address] Gina Bautista, PCP - Assigned PCP 01/12/15 05/11/18 [place] [address] [address] [address] Gina Bautista, Physician Circus Supervisor 01/31/15 [place]LE[place] [address] [address] [address] Gina Bautista, Assigned PCP 01/12/15 PALiuC 20[address] [address] [address] documented as of this encounter
--- OUTSIDE RECORDS SUMMARY | 2021-11-26 12:58 | XMS_ITS | Encounter Summary ---
:1985 Author Organization [place] Address [address] [place] [address]. [place] [address] Care Team Providers Name Role Phone Gian Bautista PA-C Primary Care Provider [phone] Gina Bautista PA-C Unavailable [phone] Gina Bautista PA-C Unavailable [phone] Gina Bautista PA-C Unavailable [phone] Reason for Visit Mental Health Outpatient (Routine) - Closed Specialty Diagnoses / Procedures Referred By Contact Refer red To Contact Gina Bautista [facility] JANETTE BERNAL [facility] [phone] [place] [id number] [place] [address] [place] [address] Phone: Fax: Referral ID Status Reason Start Date Expiration Date Visits Requ ested Visits Authorized [facility] Closed 01/14/2017 01/14/2018 1 52 Encounter Details Date Type Department Care Team Description 02/06/2017 Office Visit [facility] Lisa Lopez LP Anxiety (Primary Dx) Services [place] [phone] [facility] [address] [place] [phone] Social History Tobacco Use [...] NAME: Carley Hernandez : 1985 ACCT. NUMBER: [id number] DATE OF SERVICE: 02/06/17 Identifying Information: Client is a 31 year old, , female. Client was referred for counseling by self. 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 Client attended the session alone. Client's Statement [...] History: Client reported she grew up in [place], [place]. They were the second born of [...] concentration. There are no ethnic, cultural or jain factors that may be relevant for therapy. Client identified her preferred language to be Persian. Client reported she does not need the assistance of an biomedical engineering director or other support involved in therapy. Modifications [...] an exam with PCP. The clienthas a [place] Primary Care Provider, who is named Gina [...] muscle every30 days ??? vitamin D (ERGOCALCIFEROL) 18198 UNIT capsule Take 1 capsule (50,000 Units) [...] the following activities. For each question, please [place] only one response. S1 Standing for long [...] Plan: The client reports no currently identified jain, ethnic or cultural issues relevant to therapy. Repairer Veneer Sheet services are not indicated. Modifications to assist [...] record. Lisa Lopez LP February 06, 2017 [place] documented in this encounter Plan of Treatment Upcoming Encounters Date Type Specialty Care Team Description 01/07/2022 Virtual Visit Endocrinology Natalya Jean MD [address] [place] [address] (Wo rk) documented as of this encounter Visit Diagnoses Diagnosis Anxiety - Primary Anxiety state, unspecified documented in this encounter Additional Health Concerns Assessment Noted Time PHQ-9 Depression Total Score: 7 12/19/2016 3:37 PM CDT documented as of this encounter Care Teams Tool Turret Lathe Set Up Operator Relationship Specialty Start Date End Date Gina Bautista, PCP - General Physician Employee Health Nurse 5 09/03/21 [place] [address] [place] [address] Gina Bautista, PCP - Assigned PCP 01/12/15 05/11/18 PA-C [address] [place] [address] Gina Bautista, Physician Employee Health Nurse 01/31/15 PA-C 18471 [place] [address] Gina Bautista, Assigned PCP 01/12/15 PA-C 72148 [place] [address] documented as of this encounter
--- OUTSIDE RECORDS SUMMARY | 2021-11-26 12:58 | XMS_ITS | Encounter Summary ---
:1985 Author Organization [place] Address [address] [place] [address]. [place] [address] Care Team Providers Name Role Phone Gina Bautista PA-C Primary Care Provider [phone] Gina Bautista PA-C Unavailable [phone] Gina Bautista PA-C Unavailable [phone] Gina Bautista PA-C Unavailable [phone] Reason for Visit Reason Onset Date Comments Outreach 05/27/2017 Encounter Details Date Type Department Care Team Description 05/27/[address] [facility] Lyle Bautista, Outreach Lucia BERNAL [address] [address] [place] [phone] [place] [phone] (Wo rk) Social History Tobacco Use Types [...] Panchito Gandhi sent at 04/15/2017 4:53 PM KEY ATTENDANT ----- Call pt to schedule lab only in next 2 weeks. Labs pended. Panchito Gandhi CMA ([facility]) documented in this encounter Plan of Treatment Upcoming Encounters Date Type Specialty Care Team Description 01/07/2022 Virtual Visit Endocrinology Natalya Jean MD [address] [place] [address] (Wo rk) documented as of this encounter Visit Diagnoses Not on filedocumented in this encounter Additional Health Concerns Assessment Noted Time PHQ-9 Depression Total Score: 10 05/09/2017 8:01 AM CS T documented as of this encounter Care Teams Client Support Consultant Relationship Specialty Start Date End Date Gina Bautista, PCP - General Physician Knot Tying Operator 5 09/03/21 PA-C 46650 [address] [address] Gina Bautista, PCP - Assigned PCP 01/12/15 05/11/18 PA-C 06708 [address] [address] Gina Bautista, Physician Knot Tying Operator 01/31/15 PA-C 30688 [address]ALL [id number] Gina Bautista, Assigned PCP 01/12/15 PA-C 32293 [address] [address] documented as of this encounter
--- OUTSIDE RECORDS SUMMARY | 2021-11-26 12:58 | XMS_ITS | Encounter Summary ---
:1985 Author Organization [place] Address [address] [place] [address]. [place] [address] Care Team Providers Name Role Phone Paul Palumbo PA-C Primary Care Provider [phone] Paul Palumbo PA-C Unavailable [phone] Paul Palumbo PA-C Unavailable [phone] Paul Palumbo PA-C Unavailable [phone] Reason for Referral Consultation - Closed Specialty Diagnoses / Procedures Referred By Contact Refer red To Contact Diagnoses Low hemoglobin S/P gastric bypass Vitamin B 12 deficiency Paul Palumbo [facility] [address] [place] [address] [address] [place] [address] Phone: [phone] Fax: Referral ID Status Reason Start Date Expiration Date Visits Requ ested Visits Authorized [id number] Closed 12/24/2016 12/24/2017 1 1 INSPECTOR WATCH TRAIN - Closed Specialty Diagnoses / Procedures Referred By Contact Refer red To Contact Diagnoses Family planning counseling IUD check up Paul Palumbo [facility] [place] [address] [place] [address] [address] [place] [address] Phone: Fax: Referral ID Status Reason Start Date Expiration Date Visits Requ ested Visits Authorized [id number] Closed 12/19/2016 12/19/2017 1 1 Reason for Visit Reason Comments Physical Flu Shot Encounter Details Date Type Department Care Team Description 12/19/[address] 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 - INSPECTOR WATCH TRAIN REFERRAL 9. Family planning counseling Patient interested in future , was high risk in past, had 4 miscarriages. Will refer to INSPECTOR WATCH TRAIN to discuss future conception. - INSPECTOR WATCH TRAIN REFERRAL 10. Need for prophylactic vaccination and inoculation against influenza - FLU VAC, SPLIT VIRUS IM > 3 YO (QUADRIVALENT) [57486] - Vaccine Administration, Initial [04518] COUNSELING: Reviewed preventive health counseling, as reflected [...] hemoglobin and mood issues. Paul Palumbo PA-C [facility] Answers for HPI/ROS submitted by the [...] [address] [place] [address] (Wo rk) Scheduled Referrals Name Type Priority Associated Diagnoses Order S chedule INSPECTOR WATCH TRAIN REFERRAL Referral Routine Family planning Ordered: 12/19/2016 [...] or this PM CDT medical examination at [facility] are in a health care facility [...] T4 reflex FUTURE 2mo (04/10/2017 2:35 PM COUNTRY SALES MANAGER) athologist Signature TSH 10.56 (H) 0.40 - 04/12/2017 [facility] 4.00 mU/L 1:28 PM COUNTRY SALES MANAGER [facility] Specimen Anatomical Collection Method Collection Time Receive d Time (Source) Location / / Volume Laterality Blood specimen 04/10/2017 2:35 PM 018 2:36 (specimen) COUNTRY SALES MANAGER PM COUNTRY SALES MANAGER Paul Palumbo PA-C LAB - BLOOD ORDERABLES Performing Organization Address City/State/ZIP Code Phon e Number [facility] [address] [place] [address] (ABNORMAL) Vitamin D Deficiency (04/10/2017 2:35 PM COUNTRY SALES MANAGER) athologist Signature Vitamin D 13 (L) 20 - 75 04/11/[address] [facility] ug/L 11:46 AM COUNTRY SALES MANAGER [facility] Comment: Season, race, dietary intake, and treatm ent affect the concentration of 30-suowept-Unpdgsl D. Values may decreas e during winter [...] specimen 04/10/2017 2:35 PM 018 2:36 (specimen) COUNTRY SALES MANAGER PM COUNTRY SALES MANAGER Paul Palumbo PA-C LAB - BLOOD ORDERABLES Performing Organization Address City/State/ZIP Code Phon e Number [facility] [address] [place] [address] [facility] T4 free (12/19/2016 3:33 PM CDT) athologist Signature T4 Free 1.00 0.76 - 1.46 12/20/2016 [facility] ng/dL 1:20 PM CDT [facility] Specimen Anatomical Collection Method Collection Time Receive d Time (Source) Location / / Volume Laterality 12/19/2016 3:33 PM 7 3:34 CDT PM CDT Paul Palumbo PA-C LAB - BLOOD ORDERABLES Performing Organization Address City/State/ZIP Code Phon e Number [facility] [address] [place] [address] WBC Differential (12/19/2016 3:33 PM CDT) [facility] gist Method Time Signature Diff Method Automated 12/19/2016 [place] Method 9:06 PM [facility] % Neutrophils 64.0 % 12/19/2016 [place] 9:06 PM [facility] % Lymphocytes 25.2 % 12/19/2016 [place] 9:06 PM [facility] % Monocytes 7.7 % 12/19/2016 [place] 9:06 PM [facility] % Eosinophils 2.3 % 12/19/2016 [place] 9:06 PM [facility] % Basophils 0.5 % 12/19/2016 [place] 9:06 PM [facility] % Immature 0.3 % 12/19/2016 [place] Granulocytes 9:06 PM [facility] Nucleated RBCs 0 0 /100 12/19/2016 [facility] 9:06 PM [facility] Absolute 4.2 1.6 - 8.3 12/19/2016 [facility] Neutrophil 10e9/L 9:06 PM [facility] Absolute 1.7 0.8 - 5.3 12/19/2016 [facility] Lymphocytes 10e9/L 9:06 PM [facility] Absolute 0.5 0.0 - 1.3 12/19/2016 [facility] Monocytes 10e9/L 9:06 PM [facility] Absolute 0.2 0.0 - 0.7 12/19/2016 [facility] Eosinophils 10e9/L 9:06 PM [facility] Absolute 0.0 0.0 - 0.2 12/19/2016 [facility] Basophils 10e9/L 9:06 PM [facility] Abs Immature 0.0 0 - 0.4 12/19/2016 [facility] Granulocytes 10e9/L 9:06 PM [facility] Absolute 0.0 12/19/2016 [facility] Nucleated RBC 9:06 PM [facility] Anisocytosis Slight 12/19/2016 [facility] 9:06 PM [facility] Ovalocytes Slight 12/19/2016 [facility] 9:06 PM [facility] Microcytes Present 12/19/2016 [facility] 9:06 PM [facility] Platelet Normal 12/19/2016 [facility] Estimate 9:06 PM [facility] Specimen Anatomical Collection Method Collection Time Receive d Time (Source) Location / / Volume Laterality 12/19/2016 3:33 PM 7 4:07 CDT PM CDT Paul Palumbo PA-C LAB - BLOOD ORDERABLES Performing Organization Address City/State/ZIP Code Phon e Number [facility] [address] [address] [facility] [address] [phone] Reticulocyte Count (12/19/2016 3:33 PM CDT) athologist Signature % Retic 1.1 0.5 - 2.0 12/19/2016 [place] % 7:25 PM CDT [facility] Absolute Retic 43.0 25 - 95 12/19/2016 [place] 10e9/L 7:25 PM CDT [facility] Specimen Anatomical Collection Method Collection Time Receive d Time (Source) Location / / Volume Laterality Blood specimen 12/19/2016 3:33 PM 017 4:07 (specimen) CDT PM CDT Paul Palumbo PA-C LAB - BLOOD ORDERABLES Performing Organization Address City/State/ZIP Code Phon e Number M [facility] [address] [address] [facility] [address] [phone] Blood Morphology Pathologist Review (12/19/2016 3:33 PM CDT) Component Value Ref Test Analysis Performed Pathologis t Range Method Time At Signature Copath Patient Name: TASHA PHELAN Report MR#: [id number] Specimen #: [id number] Collected: 12/19/2016 Received: 12/22/2016 Reported: 12/22/2016 10:01 [...] 12-22-2016 @ 10:01 AM). CPT Codes: A: 81620-JOKK TESTING LAB LOCATION: [facility] [address] [place], [place] ??[address] COLLECTION SITE: Client: ??[facility] Location: ??[facility] (R) Specimen Anatomical Collection Method [...] 12/19/2016 [facility] pg/mL 10:23 PM CDT [facility] Specimen Anatomical Collection Method Collection Time Receive d Time (Source) Location / / Volume Laterality Blood specimen 12/19/2016 3:33 PM 017 3:34 (specimen) CDT PM CDT Paul Palubmo PA-C LAB - BLOOD ORDERABLES Performing Organization Address City/State/ZIP Code Phon e Number [phone] [place] [address] (ABNORMAL) Vitamin D Deficiency (12/19/2016 3:33 PM CDT) athologist Signature Vitamin D 17 (L) 20 - 75 12/21/2016 [facility] Deficiency ug/L 3:23 PM CDT [facility] Comment: Season, race, dietary intake, and treatm ent affect the concentration of 17-chnjeet-Nzdscas D. Values may decreas e during winter [...] Organization Address City/State/ZIP Code Phon e Number [facility] [address] [place], [place] [phone] [place] [address] (ABNORMAL) Comprehensive metabolic panel (12/19/2016 3:33 PM CDT) [facility] Method Time Signature Sodium 140 133 - 144 12/20/2016 [facility] mmol/L 12:54 PM CDT [facility] Potassium 4.2 3.4 - 5.3 12/20/2016 [facility] mmol/L 12:54 PM CDT [facility] Chloride 110 (H) 94 - 109 12/20/2016 [facility] mmol/L 12:54 PM CDT [facility] Carbon Dioxide 21 20 - 32 12/20/2016 [facility] mmol/L 12:54 PM CDT [facility] Anion Gap 9 3 - 14 12/20/2016 [place] mmol/L 12:54 PM CDT [facility] Glucose 85 70 - 99 12/20/2016 [facility] mg/dL 12:54 PM CDT [facility] Urea Nitrogen 9 7 - 30 12/20/2016 [facility] mg/dL 12:54 PM CDT [facility] Creatinine 0.75 0.52 - 12/20/2016 [facility] 1.04 mg/dL 12:54 PM CDT [facility] GFR Estimate >90 >60 12/20/2016 [place] mL/min/1.7 12:54 PM CDT CLINICS m2 [facility] Comment: Non GFR Calc GFR Estimate If >90 >60 mL/min/1.7m2 12/20/2016 12:54 PM [facility] Black T [facility] Comment: GFR Calc Calcium 8.7 8.5 - 10.1 12/20/2016 12:54 PM [facility] mg/dL T [facility] Bilirubin Total 0.4 0.2 - 1.3 mg/dL 12/20/2016 12:[address] [facility] Albumin 3.9 3.4 - 5.0 g/dL 12/20/2016 12:54 PM [facility] Protein Total 7.6 6.8 - 8.8 g/dL 12/20/2016 12:54 PM [facility] Alkaline Phosphatase 61 40 - 150 U/L 12/20/2016 1:[address] [facility] ALT 20 0 - 50 U/L 12/20/2016 12:[address] [facility] AST 15 0 - 45 U/L 12/20/2016 12:[address] [facility] Specimen Anatomical Collection Method Collection Time Receive d Time (Source) Location / / Volume Laterality Blood specimen 12/19/2016 3:33 PM 017 3:34 (specimen) CDT PM CDT Paul Palumbo PA-C LAB - BLOOD ORDERABLES Performing Organization Address City/[facility]/ZIP Code Phon e Number [facility] [address] [place] [address] (ABNORMAL) TSH with free T4 reflex (12/19/2016 3:33 PM CDT) athologist Signature TSH 8.78 (H) 0.40 - 12/20/2016 [facility] 4.00 mU/L 1:02 PM CDT [facility] Specimen Anatomical Collection Method Collection Time Receive d Time (Source) Location / / Volume Laterality Blood specimen 12/19/2016 3:33 PM 017 3:34 (specimen) CDT PM CDT Paul Palumbo PA-C LAB - BLOOD ORDERABLES Performing Organization Address City/[facility]/ZIP Code Phon e Number [facility] [address], [place] [address] (ABNORMAL) Iron and iron binding capacity (12/19/2016 3:33 PM CDT) Patholo gist Method Time Signature Iron 10 (L) 35 - 180 12/20/2016 [place] ug/dL 12:54 PM CDT [facility] Iron Binding 528 (H) 240 - 430 12/20/2016 [place] Cap ug/dL 12:54 PM CDT [facility] Iron Saturation 2 (L) 15 - 46 % 12/20/2016 [place] Index 12:54 PM CDT [facility] Specimen Anatomical Collection Method Collection Time Receive d Time (Source) Location / / Volume Laterality Blood specimen 12/19/2016 3:33 PM 017 3:34 (specimen) CDT PM CDT Paul Palumbo PA-C LAB - BLOOD ORDERABLES Performing Organization Address City/[facility]/ZIP Code Phon e Number [facility] [address], [place] [phone] (ABNORMAL) Ferritin (12/19/2016 3:33 PM CDT) athologist Signature Ferritin 2 (L) 12 - 150 12/20/2016 [facility] ng/mL 12:55 PM CDT [facility] Specimen Anatomical Collection Method Collection Time Receive d Time (Source) Location / / Volume Laterality Blood specimen 12/19/2016 3:33 PM 017 3:34 (specimen) CDT PM CDT Paul Palumbo PA-C LAB - BLOOD ORDERABLES Performing Organization Address City/[facility] Code Phon e Number [facility] [address], [place] [address] (ABNORMAL) CBC with platelets (12/19/2016 3:33 PM CDT) P athologist Signature WBC 6.4 4.0 - 11.0 12/19/2016 [place] 10e9/L 3:43 PM CDT [facility] RBC Count 3.97 3.8 - 5.2 12/19/2016 [place] 10e12/L 3:43 PM CDT [facility] Hemoglobin 7.2 (L) 11.7 - 15.7 12/19/2016 [place] g/dL 3:43 PM CDT [facility] Comment: Critical Value called to and read back b y TO PAUL PALUMBO PAC ON12/19/16 1540 DA Hematocrit 25.5 (L) 35.0 - 47.0 % 12/19/2016 3:43 PM CDT [facility] MCV 64 (L) 78 - 100 fl 12/19/2016 3:43 PM CDT [facility] MCH 18.1 (L) 26.5 - 33.0 pg 12/19/2016 3:43 PM CDT [facility] MCHC 28.2 (L) 31.5 - 36.5 g/dL 12/19/2016 3:43 PM CDT [facility] Comment: Results confirmed by repeat mónica t RDW 17.4 (H) 10.0 - 15.0 % 12/19/2016 3:43 PM [facility] Platelet Count 375 150 - 450 10e9/L 12/19/2016 3:43 PM [facility] CDT [facility] Specimen Anatomical Collection Method Collection Time Receive d Time (Source) Location / / Volume Laterality Blood specimen 12/19/2016 3:33 PM 017 3:34 (specimen) CDT PM CDT Paul Palumbo PA-C LAB - BLOOD ORDERABLES Performing Organization Address City/State/ZIP Code Phon e Number [facility] [address] [address] Pap imaged thin layer screen reflex to HPV if ASCUS - recommend age 25 - 29 (12/19/2016 3:05 PM CDT) Component Value Ref Test Analysis Performed At [facility] Range Method Time Signature PAP NIL COPATH Copath Report COPATH Patient Name: TASHA PHELAN MR#: [id number] Specimen #: [id number] Collected: 12/19/2016 Received: 12/22/2016 Reported: 12/23/2016 13:10 [...] MATEUSZ Rodrigez (ASCP) Processed and screened at [facility] CLINICAL HISTORY: Currently not having periods, Intra-Uterine Device, Papanicolaou Test Limitations: ??Cervical cytology is a scre ening test with limited sensitivity; regular screening is critical for cancer prevention; Pap tests are primarily effective for the diagnosis/prevention of squamous cell carcinoma, not adenoca rcinomas or other cancers. TESTING LAB LOCATION: [address] ??[phone] COLLECTION SITE: Client: ??[facility] Location: [facility] (R) Specimen (Source) Anatomical Collection Method Collection [...] documented as of this encounter Care Teams Paper Cup Handle Machine Operator Relationship Specialty Start Date End Date Paul Palumbo PCP - General Physician Hat Finisher 5 09/03/21 [place] [address] [place] [place], [place] [address] Paul Palumbo, PCP - Assigned PCP 01/12/15 05/11/18 PA-C [address] [place] [address] Paul Palumbo, Physician Hat Finisher 01/31/15 [place] [address] [place] [place], [place] [address] Paul Palumbo, Assigned PCP 01/12/15 PA-C [address] [place] [address] documented as of this encounter
--- OUTSIDE RECORDS SUMMARY | 2021-11-26 12:58 | XMS_ITS | Encounter Summary ---
:1985 Author Organization [place] Address [address] [place] [address] Care Team Providers Name Role Phone Gina Bautista PA-C Unavailable [phone] Vidya Espinal APRN, CNM Unavailable [facility] Unavailable Marissa Jean MD Unavailable Violette BoldenM Primary Care Provider Reason for Visit Reason Onset Date Comments Appointment 09/04/2021 Encounter Details Date Type Department Care Team Description 09/04/2021 Telephone [facility] Natalya Jean, Lizzeth Israel MD [address] [facility] [address] [place] [address] [place] [address] (Wo rk) Social History Tobacco [...] CDT [facility], relayed message to planner/scheduler she will relay this message to the team/person who called. Telephone Encounter - Marissa Jean MD - 09/04/2021 10:29 AM CDT NEW PT TO ME. I am very sorry- but at this time schedule is booked out and I do not have any sooner appointments. Patient my wish to request endo consult at another locations or [facility] Endocrinology. Let me know if you [...] [address] [place] [address] (Wo rk) documented as of this encounter Visit Diagnoses Not on filedocumented in this encounter Additional Health Concerns Assessment Noted Time PHQ-9 Depression Total Score: 10 05/09/2017 8:01 AM CS T documented as of this encounter Care Teams Butadiene Converter Operator Relationship Specialty Start Date End Date Violette Bolden CNM PCP - General 09/04/21 [facility] [address] [place] [address] Gina Bautsita, Physician Welding Machine Assembler 01/31/15 [place] [address] [place] [address] Vidya Espinal APRN CNM Paper Cup Machine Operator 08/21/[address] [place] [id number] [facility] 08/21/21 [facility] [address] [place] [address] Marissa Jean MD Hospitalist Endocrinology, 09/04/21 [address] Diabetes, and [address], [place] [address] documented as of this encounter
--- OUTSIDE RECORDS SUMMARY | 2021-11-26 12:58 | XMS_ITS | Encounter Summary ---
:1985 Author Organization [place] Address [address] [place] [address]. [place] [address] Care Team Providers Name Role Phone Gina Bautista PA-C Primary Care Provider [phone] Gina Bautista PA-C Unavailable [phone] Gina Bautista PA-C Unavailable [phone] Gina Bautista PA-C Unavailable [phone] Reason for Referral - Closed Specialty Diagnoses / Procedures Referred By Contact Refer red To Contact Diagnoses S/P gastric bypass Gina Bautista, Procedures VITAMIN B12 INJ /1000MCG [place] [address] [place] [address] Referral ID Status Reason Start Date Expiration Date Visits Requ ested Visits Authorized [id number] Closed 12/29/2016 12/29/2017 1 1 Reason for Visit Reason Comments Imm/Inj starting B 12 injections Encounter Details Date Type Department Care Team Description 12/29/2016 Allied Health/Nurse [facility] Imm /Inj (starting B 12 Visit Clinic [place] injections ) [address] [place] [id number] Social History Tobacco Use Types Packs/Day Years [...] [address] [place], [place] [address] (Wo rk) documented as of this encounter Visit Diagnoses Diagnosis S/P gastric bypass - Primary Bariatric surgery status documented in this encounter Additional Health Concerns Assessment Noted Time PHQ-9 Depression Total Score: 7 12/19/2016 3:37 PM CDT documented as of this encounter Care Teams Truck Guard Relationship Specialty Start Date End Date Gina Bautista, PCP - General Physician Papeterie Table Assembler 5 09/03/21 PA-C [address] [place] [address] Gina Bautista, PCP - Assigned PCP 01/12/15 05/11/18 PA-C [address] [place] [address] Gina Bautista, Physician Papeterie Table Assembler 01/31/15 PA-C [address] [place] [address] Gina Bautista, Assigned PCP 01/12/15 PA-C [address] [place] [address] documented as of this encounter
--- OUTSIDE RECORDS SUMMARY | 2021-11-26 12:59 | XMS_ITS | Encounter Summary ---
:1985 Author Organization [place] Address [address] [place] [address] Care Team Providers Name Role Phone Unavailable Primary Care Provider Unavailable Encounter Details Date Type Department Care Team Description 05/23/2005 Results [facility] Results EMERGENCY [facility] [address] [place], [place] [phone] (Wo rk) Social History Tobacco Use Types Packs/Day Years Used Date Never Assessed Sex Assigned at Date Recorded Not on file documented as of this encounter Plan of Treatment Upcoming Encounters Date Type Specialty Care Team Description 01/07/2022 Virtual Visit Endocrinology Natalya Jean MD [address] [place] [address] (Wo rk) documented as of this encounter Procedures Procedure Name Priority Date/Time Associated Diagnosis Comme [facility] US PELVIC Routine 05/23/2005 10:02 AM Results for this NON-OB, COMPLETE COATING AND EMBOSSING UNIT OPERATOR procedure a re in the results section. documented in this encounter Results SONO PELVIS COMPLETE (05/23/2005 10:02 AM COATING AND EMBOSSING UNIT OPERATOR) Specimen (Source) Anatomical Collection Method Collection Time Re ceived Time Location / / Volume Laterality 05/23/2005 10:02 AM COATING AND EMBOSSING UNIT OPERATOR Impressions RADIOLOGY RESULTS - 05/26/2005 10:39 AM COATING AND EMBOSSING UNIT OPERATOR PELVIC ULTRASOUND WITH TRANSVAGINAL - ?? TECHNIQUE: [...]
--- OUTSIDE RECORDS SUMMARY | 2021-11-26 12:59 | XMS_ITS | Encounter Summary ---
:1985 Author Organization [facility] Address [address] [place] [address]. [place] [address] Care Team Providers Name Role Phone Gina Bautista PA-C Primary Care Provider [phone] Gina Bautista PA-C Unavailable [phone] Gina Bautista PA-C Unavailable [phone] Gina Bautista PA-C Unavailable [phone] Encounter Details Date Type Department Care Team Description 04/26/2015 Orders Only [facility] Enc ounter for routine adult physical exam with abnormal findings; [facility] Overweight; [address] Hypothyroidism due to acquir ed atrophy of thyroid [place] [address] Social History Tobacco Use Types Packs/Day Years [...] [address] [place], [place] [address] (Wo rk) documented as of this encounter Procedures Procedure Name Priority Date/Time Associated Comments Diagnosis TSH WITH FREE T4 Routine 04/26/2015 8:26 AM Encounter for Resu lts for this REFLEX PSYCHIATRIC CLINICAL NURSE SPECIALIST routine adult procedure are in physical exam with the resul ts abnormal finding s section. Hypothyroidism due to acquired atrophy of thyroid T4 FREE Routine 04/26/2015 8:26 AM Encounter for Results for this PSYCHIATRIC CLINICAL NURSE SPECIALIST routine adult procedure are in physical exam with the resul ts abnormal findings section. LIPID REFLEX TO DIRECT Routine 04/26/2015 8:26 AM Encounter fo r Results for this LDL PANEL PSYCHIATRIC CLINICAL NURSE SPECIALIST routine adult procedure are in physical exam with the resul ts abnormal findings section. COMPREHENSIVE Routine 04/26/2015 8:26 AM Encounter for Results for this METABOLIC PANEL PSYCHIATRIC CLINICAL NURSE SPECIALIST routine adult procedure a re in physical exam with the resul ts abnormal finding s section. Overweight CBC WITH PLATELETS Routine 04/26/2015 8:26 AM Encounter for Re sults for this PSYCHIATRIC CLINICAL NURSE SPECIALIST routine adult procedure are in physical exam with the resul ts abnormal findings section. documented in this encounter Results T4 free (04/26/2015 8:26 AM PSYCHIATRIC CLINICAL NURSE SPECIALIST) athologist Signature T4 Free 0.98 0.76 - 1.46 [facility] ng/dL [facility] Specimen Anatomical Collection Method Collection Time Receive d Time (Source) Location / / Volume Laterality 04/26/2015 8:26 AM 6 8:27 PSYCHIATRIC CLINICAL NURSE SPECIALIST AM PSYCHIATRIC CLINICAL NURSE SPECIALIST Gina Bautista PA-C LAB - BLOOD ORDERABLES Performing Organization Address City/State/ZIP Code Phon e Number [facility] [address] [place] [address] (ABNORMAL) CBC with platelets (04/26/2015 8:26 AM PSYCHIATRIC CLINICAL NURSE SPECIALIST) athologist Signature WBC 4.7 4.0 - 11.0 [place] 10e9/L [facility] [place] RBC Count 4.41 3.8 - 5.2 [place] 10e12/L [facility] [place] Hemoglobin 8.4 (L) 11.7 - 15.7 [place] g/dL [facility] [place] Comment: Results confirmed by repeat mónica t Hematocrit 29.1 (L) 35.0 - 47.0 % [facility]3] S [place] MCV 66 (L) 78 - 100 fl [facility] R [place] MCH 19.0 (L) 26.5 - 33.0 pg [facility]3] [place] MCHC 28.9 (L) 31.5 - 36.5 g/dL [facility] Comment: Results confirmed by repeat mónica t RDW 16.7 (H) 10.0 - 15.0 % [facility] Platelet Count 321 150 - 450 10e9/L [facility] Specimen Anatomical Collection Method Collection Time Receive d Time (Source) Location / / Volume Laterality Blood specimen 04/26/2015 8:26 AM 016 8:27 (specimen) PSYCHIATRIC CLINICAL NURSE SPECIALIST AM PSYCHIATRIC CLINICAL NURSE SPECIALIST Gina Bautista PA-C LAB - BLOOD ORDERABLES Performing Organization Address City/[facility]/ZIP Code Phon e Number [facility] [address] [place], [place] [address] LIPID REFLEX TO DIRECT LDL PANEL (04/26/2015 8:26 AM PSYCHIATRIC CLINICAL NURSE SPECIALIST) P athologist Signature Cholesterol 109 <200 mg/dL [facility] Triglycerides 70 <150 mg/dL [facility]3] S [facility] Comment: Fasting specimen HDL Cholesterol 54 >49 mg/dL [place] [facility] LDL Cholesterol Calculated 41 <100 mg/dL [facility] Comment: Desirable: <100 mg/dl Non HDL Cholesterol 55 <130 mg/dL [facility] Specimen Anatomical Collection Method Collection Time Receive d Time (Source) Location / / Volume Laterality Blood specimen 04/26/2015 8:26 AM 016 8:27 (specimen) PSYCHIATRIC CLINICAL NURSE SPECIALIST AM PSYCHIATRIC CLINICAL NURSE SPECIALIST Gina Bautista PA-C LAB - BLOOD ORDERABLES Performing Organization Address City/[facility]/ZIP Code Phon e Number [facility] [address] [place] [address] (ABNORMAL) TSH with free T4 reflex (04/26/2015 8:26 AM PSYCHIATRIC CLINICAL NURSE SPECIALIST) P athologist Signature TSH 7.92 (H) 0.40 - [facility] 4.00 mU/L [facility] Specimen Anatomical Collection Method Collection Time Receive d Time (Source) Location / / Volume Laterality Blood specimen 04/26/2015 8:26 AM 016 8:27 (specimen) PSYCHIATRIC CLINICAL NURSE SPECIALIST AM PSYCHIATRIC CLINICAL NURSE SPECIALIST Gina Bautista PA-C LAB - BLOOD ORDERABLES Performing Organization Address City/State/ZIP Code Phon e Number [facility] [address] [place] [address] (ABNORMAL) Comprehensive metabolic panel (04/26/2015 8:26 AM PSYCHIATRIC CLINICAL NURSE SPECIALIST) [facility] gist Method Time Signature Sodium 140 133 - 144 [place] mmol/L [facility] Potassium 4.1 3.4 - 5.3 [place] mmol/L [facility] Chloride 109 94 - 109 [place] mmol/L [facility] Carbon Dioxide 23 20 - 32 [place] mmol/L [facility] Anion Gap 8 3 - 14 [place] mmol/L [facility] Glucose 87 70 - 99 [place] mg/dL [facility] Urea Nitrogen 10 7 - 30 [place] mg/dL [facility] Creatinine 0.74 0.52 - [place] 1.04 CLINICS mg/dL [facility] GFR Estimate >90 >60 [place] Non GFR Calc mL/min/1. CLINICS 7[address]2 [facility] GFR Estimate If >90 >60 [place] Black GFR Calc mL/min/1. CLIN ICS 7m2 [facility] Calcium 8.3 (L) 8.5 - [facility] 10.1 CLINICS mg/dL [facility] Bilirubin Total 0.5 0.2 - 1.3 [place] mg/dL [facility] Albumin 3.8 3.4 - 5.0 [place] g/dL [facility] Protein Total 7.4 6.8 - 8.8 [place] g/dL [facility] Alkaline 71 40 - 150 [place] Phosphatase U/L [facility] ALT 19 0 - 50 [place] U/L [facility] AST 14 0 - 45 [facility] U/L [facility] Specimen Anatomical Collection Method Collection Time Receive d Time (Source) Location / / Volume Laterality Blood specimen 04/26/2015 8:26 AM 016 8:27 (specimen) PSYCHIATRIC CLINICAL NURSE SPECIALIST AM PSYCHIATRIC CLINICAL NURSE SPECIALIST Gina Bautista PA-C LAB - BLOOD ORDERABLES Performing Organization Address City/State/ZIP Code Phon e Number [facility] [address] [place] [address] documented in this encounter Visit Diagnoses Diagnosis Encounter for routine adult physical exa m with abnormal findings Overweight 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 documented in this encounter Additional Health Concerns Assessment Noted Time PHQ-9 Depression Total Score: 16 04/26/2015 8:54 AM CS T documented as of this encounter Care Teams Application Security Specialist Relationship Specialty Start Date End Date Gina Bautista, PCP - General Physician Paper Core Machine Operator 5 09/03/21 PA-C [address] [place] [address] Gina Bautista, PCP - Assigned PCP 01/12/15 05/11/18 PA-C [address] [place] [address] Gina Bautista, Physician Paper Core Machine Operator 01/31/15 PA-C [address] [place] [address] Gina Bautista, Assigned PCP 01/12/15 PA-C [address] [place] [address] documented as of this encounter
--- OUTSIDE RECORDS SUMMARY | 2021-11-26 12:59 | XMS_ITS | Encounter Summary ---
:1985 Author Organization [facility] Address [address] [place] [address]. [place] [address] Care Team Providers Name Role Phone Gina Bautista PA-C Primary Care Provider [phone] Gina Bautista PA-C Unavailable [phone] Gina Bautista PA-C Unavailable [phone] Gina Bautista PA-C Unavailable [phone] Reason for Visit Reason Comments URI Encounter Details Date Type Department Care Team Description 06/25/2015 Office Visit [facility] Serum, Ro Viral URI (Primary Dx); Yony Yarbrough MD Acute pharyngitis, unspecified etiology [address] [facility] [place] [address] [place] [phone] [address] [place], [place] [address] Social History Tobacco Use [...] and Medical/Social/Surgical histories reviewed in [facility] andupdated as appropriate. OBJECTIVE: BP 96/56 mmHg [...] [address] [place] [address] (Wo rk) documented as of this encounter [...] Component Value Ref [facility] Method Time Signature Specimen Throat [facility] YONY Culture Micro No Beta JADWIN Streptococcus [facility] isolated YONY Micro Report FINAL 06/27/2015 [facility] YONY Specimen Anatomical Collection Method Collection Time Receive d Time (Source) Location / / Volume Laterality 06/25/2015 5:20 PM 6 5:25 CDT PM CDT Ro Salgado MD LAB - MICRO GENERAL ORDERABL ES Performing Organization Address City/State/ZIP Code Phon e Number [facility] [address] [facility] [place] [address] Strep, Rapid Screen (06/25/2015 5:20 PM CDT) Component Value Ref Test Analysis Performed At [facility] Vserv Range Method Time Signature Specimen Throat [facility] YONY Rapid Strep A NEGATIVE: No Group A strepto coccal antigen detected by immunoassay, await JADWIN Screen culture report. CLINICS YONY Micro Report FINAL 06/25/2015 JADWIN Status CLINICS YONY Specimen Anatomical Collection Method Collection Time Receive d Time (Source) Location / / Volume Laterality Specimen from 06/25/2015 5:20 PM 06/25/19 16 5:25 throat CDT PM CDT (specimen) Ro Salgado MD LAB - MICRO GENERAL ORDERABL ES Performing Organization Address City/State/ZIP Code Phon e Number [facility] YONY [address] [facility] [place] [address] documented in this encounter Visit Diagnoses Diagnosis Viral URI - Primary Acute upper respiratory infections of un specified site Acute pharyngitis, unspecified etiology documented in this encounter Additional Health Concerns Assessment Noted Time PHQ-9 Depression Total Score: 16 04/26/2015 8:54 AM CS T documented as of this encounter Care Teams Sheetmetal Trades Worker Relationship Specialty Start Date End Date Gina Bautista, PCP - General Physician Molder Bench 5 09/03/21 PA-C [address] [place], [place] [address] Gina Bautista, PCP - Assigned PCP 01/12/15 05/11/18 PA-C 76279 [place] [address] Gina Bautista, Physician Molder Bench 01/31/15 PALiuC [address] [place] [address] Gina Bautista, Assigned PCP 01/12/15 PA-C 31495 [place] [address] documented as of this encounter
--- OUTSIDE RECORDS SUMMARY | 2021-11-26 12:59 | XMS_ITS | Encounter Summary ---
:1985 Author Organization [facility] Address [address] [place] [address]. [place] [address] Care Team Providers Name Role Phone Gina Bautista PA-C Primary Care Provider [phone] Gina Bautista PA-C Unavailable [phone] Gina Bautista PA-C Unavailable [phone] Gina Bautista PA-C Unavailable [phone] Reason for Visit Reason Onset Date Comments Patient Request for Note/Letter 04/26/2015 Encounter Details Date Type Department Care Team Description 04/26/2015 Telephone [facility] Gina Bautista Request for Clinic Jigna Vance PA-C Note/Letter [address] [address] [place] [facility] [place] [address] [phone] Social History Tobacco Use Types Packs/Day Years Used Date Never Smoker Smokeless Tobacco: Never Used Alcohol Use Standard Drinks/Week Comments Yes 0 (1 standard drink = 0.6 oz pure alcoho l) Sex Assigned at Date Recorded Not on file documented as of this encounter Miscellaneous Notes Telephone Encounter - Gina Bautista PA-C - 04/27/2015 8:14 AM FLORAL DESIGNER SALESPERSON Note for patient provided for missed work, given to Meg. Gina Bautista PA-C AL DESIGNER SALESPERSON Telephone Encounter - Irma Boggs, RN - [...] in office Thursday. Irma Boggs RN AL DESIGNER SALESPERSON documented in this encounter Plan of Treatment Upcoming Encounters Date Type Specialty Care Team Description 01/07/2022 Virtual Visit Endocrinology Natalya Jean MD [address] [facility] [address] [place], [place] [address] (Wo rk) documented as of this encounter Visit Diagnoses Not on filedocumented in this encounter Additional Health Concerns Assessment Noted Time PHQ-9 Depression Total Score: 16 04/26/2015 8:54 AM CS T documented as of this encounter Care Teams Director Of Vital Statistics Relationship Specialty Start Date End Date Gina Bautista, PCP - General Physician [employer] Principal 5 09/03/21 PAL[facility]C [address] [place] [address] Gina Bautista, PCP - Assigned PCP 01/12/15 05/11/18 [place] [address] [place] [address] Gina Bautista, Physician [employer] Principal 01/31/15 [place] [address] [place] [address] Gina Bautista, Assigned PCP 01/12/15 [place] [address] [place], [place] [address] documented as of this encounter
--- OUTSIDE RECORDS SUMMARY | 2021-11-26 12:59 | XMS_ITS | Encounter Summary ---
:1985 Author Organization [facility] Address [address] [place] [address]. [place] [address] Care Team Providers Name Role Phone Unavailable Primary Care Provider Unavailable Encounter Details Date Type Department Care Team Description 07/21/2004 Historic Senior Db2 Systems Programmer INTERFACED REPORT Ilana Levy Social History Tobacco Use Types Packs/Day Years Used Date Never Assessed Sex Assigned at Date Recorded Not on file documented as of this encounter Progress Notes Interface, Senior Db2 Systems Programmer - 02/12/2011 3:18 AM AUTOMOBILE OR TRUCK RENTAL DISPATCHER : 89 CHIEF COMPLAINT: Ankle and knee [...] EPIDEMIOLOGIC HISTORY: Patient attends school. They visited [place] in May 2004. PHYSICAL EXAMINATION: VITAL SIGNS: [...] appointment. EM#[id number] KELLIE LEVY MD MT: Document: [id number] CC: KELLIE LEVY MD [place], [place] Name: MR#: CARLEY CHAN -23 EMERGENCY ROOM ENCOUNTER Page 2 of 2 LCN: ERC DSC: 07/21/2004 [place], [place] Name: MR#: CARLEY CHAN [id number] : Admit Date: Account #: 1985 07/21/2004 [id number] Doctor: KELLIE LEVY MD EMERGENCY ROOM ENCOUNTER Page 1 of 2 MOBILE OR TRUCK RENTAL DISPATCHER documented in this encounter Plan of Treatment Upcoming Encounters Date Type Specialty Care Team Description 01/07/2022 Virtual Visit Endocrinology Natalya Jean MD [address] [place] [address] (Wo rk) documented as of this encounter Visit Diagnoses Not on filedocumented in this encounter
--- OUTSIDE RECORDS SUMMARY | 2021-11-26 12:59 | XMS_ITS | Encounter Summary ---
:1985 Author Organization [facility] Address [address] [place] [address] Care Team Providers Name Role Phone Unavailable Primary Care Provider Unavailable Encounter Details Date Type Department Care Team Description 05/23/2005 Emergency room Glory Kraft EMERGENCY PHYSIC JED [place]IREZ [address] [place] [address] (Wo rk) Social History Tobacco Use Types Packs/Day Years Used Date Never Assessed Sex Assigned at Date Recorded Not on file documented as of this encounter Progress Notes Interface, Cyber Security Engineer - 05/24/2005 10:20 PM PAN WASHER HAND FINAL CHIEF COMPLAINT: Left lower quadrant pain. [...] home. Tylenol No. 3 for discomfort, Motrin [id number]. Follow up with primary care physician in 3-5 days, clear liquids x8 hours and advance diet as tolerated. Return to emergency department if symptoms get worse. Electronically signed on 05/24/2005 22:19 by GLORY KRAFT MD MT: [id number] Name: CARLEY CHAN MRN: -[id number] Account: [id number] : 1985 Visit Date: 05/23/2005 Document: [id number] cc: [facility] WASHER HAND Interface, Cyber Security Engineer - 05/24/2005 3:26 PM PAN WASHER HAND PRELIMINARY CHIEF COMPLAINT: Left lower quadrant pain. [...] home. Tylenol No. 3 for discomfort, Motrin [id number]. Follow up with primary care physician in 3-5 days, clear liquids x8 hours and advance diet as tolerated. Return to emergency department if symptoms get worse. MD Khloe DUNAWAY: 05/23/2005 MT: [id number] Name: CARLEY CHAN Account: [id number] : 1985 Visit Date: 05/23/2005 Document: [id number] cc: [facility] documented in this encounter Plan of Treatment Upcoming Encounters Date Type Specialty Care Team Description 01/07/2022 Virtual Visit Endocrinology Natalya Jean MD [address] [place] [address] (Wo rk) documented as of this encounter Visit Diagnoses Not on filedocumented in this encounter
--- OUTSIDE RECORDS SUMMARY | 2021-11-26 12:59 | XMS_ITS | Encounter Summary ---
:1985 Author Organization [facility] Address [address] [place] [address] Care Team Providers Name Role Phone Unavailable Primary Care Provider Unavailable Encounter Details Date Type Department Care Team Description 09/30/2005 Results Only [facility] [place] [address] (Wo rk) Social History Tobacco Use Types Packs/Day Years Used Date Never Assessed Sex Assigned at Date Recorded Not on file documented as of this encounter Plan of Treatment Upcoming Encounters Date Type Specialty Care Team Description 01/07/2022 Virtual Visit Endocrinology Natalya Jean MD [address] [place] [address] (Wo rk) documented as of this encounter Procedures Procedure Name Priority Date/Time Associated Diagnosis Comme [facility] X-RAY FOOT Routine 09/30/2005 10:59 AM Results [...]
--- OUTSIDE RECORDS SUMMARY | 2021-11-26 12:59 | XMS_ITS | Encounter Summary ---
:1985 Author Organization [facility] Address [address] [place] [address]. [place] [address] Care Team Providers Name Role Phone Unavailable Primary Care Provider Unavailable Encounter Details Date Type Department Care Team Description 05/23/2005 Historic Results INTERFACED REPORT Aleksandra Carrizales MD [address] [phone] (Wo rk) Social History Tobacco Use Types Packs/Day Years Used Date Never Assessed Sex Assigned at Date Recorded Not on file documented as of this encounter Plan of Treatment Upcoming Encounters Date Type Specialty Care Team Description 01/07/2022 Virtual Visit Endocrinology Natalya Jean MD [address] [place], [place] [address] (Wo rk) documented as of this encounter Procedures Procedure Name Priority Date/Time Associated Comments Diagnosis WET PREPARATION STAT 05/23/2005 9:45 AM Result s for this PARK MANAGER procedure are i n the results section. NEISSERIA GONORRHOEAE STAT 05/23/2005 9:45 AM Results for this PCR PARK MANAGER procedure are i n the results section. CHLAMYDIA TRACHOMATIS STAT 05/23/2005 9:45 AM Results for this PCR PARK MANAGER procedure are i n the results section. HCG QUALITATIVE URINE STAT 05/23/2005 9:20 AM Results for this PARK MANAGER procedure are i n the results section. ROUTINE UA WITH STAT 05/23/2005 9:20 AM Result s for this MICROSCOPIC PARK MANAGER procedure are i n the results section. HEMOGRAM DIFFERENTIAL STAT 05/23/2005 7:35 AM Results for this AND PLATELET PARK MANAGER procedure are i n the results section. BASIC METABOLIC PANEL STAT 05/23/2005 7:35 AM Results for this PARK MANAGER procedure are i n the results section. documented in this encounter Results Chlamydia trachomatis PCR (05/23/2005 9:45 AM PARK MANAGER) Component Value Ref Test Analysis Performed At [facility] Range Method Time Signature Specimen Cervical MISYS Description Chlamydia Negative for C. MISYS Trachomatis PCR trachomatis rRNA by business performance manager mediated amplification. Comment: A negative result by business performance manager medi ated amplification does not preclude the presence of C. trachomatis infection be cause results are dependent on proper and adequate collection, absence of inh ibitors, and sufficient rRNA to be detected. Specimen Anatomical Collection Method Collection Time Receive d Time (Source) Location / / Volume Laterality 05/23/2005 9:45 AM 6 PARK MANAGER 10:02 AM PARK MANAGER Pediatrics [facility] - MICRO GENERAL ORDERABL ES Performing Organization Address [facility]/ZIP Code Phon e Number MISYS Neisseria gonorrhoeae PCR (05/23/2005 9:45 AM PARK MANAGER) [facility] Method Time Signature Specimen Cervical MISYS Descrip N Gonorrhea Negative for N. MISYS PCR gonorrhoeae rRNA by business performance manager mediated amplification. Comment: A negative result by business performance manager medi ated amplification does not preclude the presence of N. gonorrhoeae infection be cause results are dependent on proper and adequate collection, absence of inh ibitors, and sufficient rRNA to be detected. Specimen Anatomical Collection Method Collection Time Receive d Time (Source) Location / / Volume Laterality 05/23/2005 9:45 AM 6 PARK MANAGER 10:02 AM PARK MANAGER Pediatrics [facility]ie [facility] LAB - MICRO GENERAL ORDERABL ES Performing Organization Address City/State/ZIP Code Phon e Number MISYS Wet prep (05/23/2005 9:45 AM PARK MANAGER) [facility] Method Time Signature Specimen Vagina MISYS Description Micro Report FINAL MISYS Status [id number] Wet Prep Few PMN'S MISYS seen Comment: No Trichomonas seen No yeast seen No clue cells seen Specimen Anatomical Collection Method Collection Time Receive d Time (Source) Location / / Volume Laterality 05/23/2005 9:45 AM 6 PARK MANAGER 10:02 AM PARK MANAGER Pediatrics [facility] - MICRO GENERAL ORDERABL ES Performing Organization Address City/State/ZIP Code Phon e Number MISYS (ABNORMAL) Routine UA with microscopic (05/23/2005 9:20 AM PARK MANAGER) [facility] gist Method Time Signature Source Midstream MISYS Urine Color Urine Yellow MISYS Appearance Urine Clear MISYS Glucose Urine Negative NEG mg/dL MISYS Bilirubin Urine Negative NEG MISYS Ketones Urine Negative NEG mg/dL MISYS Specific [place] 1.016 1.003 - MISYS Urine 1.035 Blood [...] Volume Laterality 05/23/2005 9:20 AM 6 7:48 PARK MANAGER AM PARK MANAGER [facility] - URINE ORDERABLES Performing Organization Address [facility] Phon e Number MISYS HCG qualitative urine (05/23/2005 9:20 AM PARK MANAGER) athologist Signature HCG Qual Urine Negative NEG MISYS Specimen Anatomical Collection Method Collection Time Receive d Time (Source) Location / / Volume Laterality 05/23/2005 9:20 AM 6 7:48 PARK MANAGER AM PARK MANAGER [facility] LAB - URINE ORDERABLES Performing Organization Address [facility] Phon e Number MISYS (ABNORMAL) Hemogram differential and platelet (05/23/2005 7:35 AM PARK MANAGER) [facility] gist Method Time Signature MCV 84 77 [...] Volume Laterality 05/23/2005 7:35 AM 6 7:48 PARK MANAGER AM PARK MANAGER [facility] - BLOOD ORDERABLES Performing Organization Address City/State/ZIP Code Phon e Number MISYS Basic metabolic panel (05/23/2005 7:35 AM PARK MANAGER) P athologist Signature Sodium 141 133 - [...] Volume Laterality 05/23/2005 7:35 AM 6 7:48 PARK MANAGER AM PARK MANAGER [facility] - BLOOD ORDERABLES Performing Organization Address City/State/ZIP Code Phon e Number MISYS documented in this encounter Visit Diagnoses Not on filedocumented in this encounter
--- OUTSIDE RECORDS SUMMARY | 2021-11-26 12:59 | XMS_ITS | Encounter Summary ---
:1985 Author Organization [place] Address [address] [place] [address]. 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; [address] Adjustment disorder with dep ressed mood; [place] [address] Iron deficiency anemia, unspecified iron deficiency [id number] [...] Comments Blood Pressure 126/62 04/25/2015 1:02 PM HUMAN INTELLIGENCE Pulse 80 04/25/2015 1:02 PM HUMAN INTELLIGENCE Temperature 36.6 ??C (97.9 ??F) 04/25/2015 1:02 PM HUMAN INTELLIGENCE Respiratory Rate 16 04/25/2015 1:02 PM HUMAN INTELLIGENCE Oxygen Saturation 100% 04/25/2015 1:02 PM HUMAN INTELLIGENCE Inhaled Oxygen Concentration - - Weight 82.1 kg (181 lb) 04/25/2015 1:02 PM HUMAN INTELLIGENCE Height 167 cm (5' 5.75) 04/25/2015 1:02 PM HUMAN INTELLIGENCE Body Mass Index 29.44 04/25/2015 1:02 PM HUMAN INTELLIGENCE documented in this encounter Patient Instructions Patient [...] months for an exam and cleaning. ?? N INTELLIGENCE documented in this encounter Progress Notes Gina [...] Maxwell and colleagues,with an educational kenia from [employer].) 04/25/2015 01/31/2015 Q1: Little interest or pleasure [...] LDL, TRIG, CHOLHDLRATIO, NHDL in the last 23631 hours. Reviewed orders with patient. Reviewed health maintenance and updated orders accordingly - Yes Mammo Decision Support: Mammogram not appropriate for this patient based on age. Last Mammo:No results found. History of abnormal Pap smear: NO - age 21-29 PAP every 3 years recommended All Histories reviewed and updated in [facility]. 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 Patient Active [...] Preventive Guidelines Dietary Guidelines for Americans, 2010 [employer] Gina Palumbo PA-C [facility] N INTELLIGENCE documented in this encounter Nursing Notes Monica [...] phone number for results from this visit [phone] OK to leave message Marianne Tony CMA (AAMA) 04/25/2015 1:03 PM N INTELLIGENCE documented in this encounter Miscellaneous Notes Addendum Note - Gina Palumbo PA-C - 04/27/2015 8:25 AM HUMAN INTELLIGENCE Addended by: GINA PALUMBO on: 04/27/2015 08:25 AM Modules accepted: Orders N INTELLIGENCE documented in this encounter Plan of Treatment Upcoming Encounters Date Type Specialty Care Team Description 01/07/2022 Virtual Visit Endocrinology Natalya Jean MD [address] [place] [address] (Wo rk) documented as of this encounter Procedures Procedure Name Priority Date/Time Associated Comments Diagnosis UA MACROSCOPIC WITH Routine 04/25/2015 12:44 Encounter for Res ults for this REFLEX TO MICROSCOPIC PM HUMAN INTELLIGENCE routine adult priscilla caballero are in AND CULTURE physical exam with the resul ts abnormal findings section. documented in this encounter Results (ABNORMAL) Iron and iron binding capacity (04/27/2015 11:50 AM HUMAN INTELLIGENCE) [facility] Method Time Signature Iron 13 (L) 35 - 180 [facility] ug/dL [facility] Iron Binding 619 (H) 240 - 430 [facility] Cap ug/dL [facility] Iron Saturation 2 (L) 15 - 46 % [facility] Index [facility] Specimen Anatomical Collection Method Collection Time Receive d Time (Source) Location / / Volume Laterality Blood specimen 04/27/2015 11:50 6 (specimen) AM HUMAN INTELLIGENCE 11:51 AM HUMAN INTELLIGENCE Gina Palumbo PA-C LAB - BLOOD ORDERABLES Performing Organization Address City/[facility]/ZIP Code Phon e Number [facility] [address] [place] [id number] (ABNORMAL) Ferritin (04/27/2015 11:50 AM HUMAN INTELLIGENCE) athologist Signature Ferritin 2 (L) 12 - 150 [facility] ng/mL [facility] Specimen Anatomical Collection Method Collection Time Receive d Time (Source) Location / / Volume Laterality Blood specimen 04/27/2015 11:50 6 (specimen) AM HUMAN INTELLIGENCE 11:51 AM HUMAN INTELLIGENCE Gina Palumbo PA-C LAB - BLOOD ORDERABLES Performing Organization Address City/State/ZIP Code Phon e Number [facility] [address] [place] [id number] (ABNORMAL) TSH with free T4 reflex (04/26/2015 8:26 AM HUMAN INTELLIGENCE) P athologist Signature TSH 7.92 (H) 0.40 - [facility] 4.00 mU/L [facility] Specimen Anatomical Collection Method Collection Time Receive d Time (Source) Location / / Volume Laterality Blood specimen 04/26/2015 8:26 AM 016 8:27 (specimen) HUMAN INTELLIGENCE AM HUMAN INTELLIGENCE Gina Palumbo PA-C LAB - BLOOD ORDERABLES Performing Organization Address City/State/ZIP Code Phon e Number [facility] [address] [place] [address] (ABNORMAL) Comprehensive metabolic panel (04/26/2015 8:26 AM HUMAN INTELLIGENCE) [facility] gist Method Time Signature Sodium 140 133 - 144 [facility] mmol/L [facility] Potassium 4.1 3.4 - 5.3 [facility] mmol/L [facility] Chloride 109 94 - 109 [facility] mmol/L [facility] Carbon Dioxide 23 20 - 32 [facility] mmol/L [facility] Anion Gap 8 3 - 14 [facility] mmol/L [facility] Glucose 87 70 - 99 [facility] mg/dL [facility] Urea Nitrogen 10 7 - 30 [facility] mg/dL [facility] Creatinine 0.74 0.52 - [facility]04 [facility] mg/dL [facility] GFR Estimate >90 >60 [facility] Non GFR Calc mL/min/1. CLINICS 7m2 [facility] GFR Estimate If >90 >60 [facility] Black GFR Calc mL/min/1. CLIN ICS 7m2 [facility] Calcium 8.3 (L) 8.5 - [facility] 10.1 [facility] mg/dL [facility] Bilirubin Total 0.5 0.2 - 1.3 [facility] mg/dL [facility] Albumin 3.8 3.4 - 5.0 [facility] g/dL [facility] Protein Total 7.4 6.8 - 8.8 [facility] g/dL [facility] Alkaline 71 40 - 150 [facility] Phosphatase U/L [facility] ALT 19 0 - 50 [facility] U/L [facility] AST 14 0 - 45 [facility] U/L [facility] Specimen Anatomical Collection Method Collection Time Receive d Time (Source) Location / / Volume Laterality Blood specimen 04/26/2015 8:26 AM 016 8:27 (specimen) HUMAN INTELLIGENCE AM HUMAN INTELLIGENCE Gina Palumbo PA-C LAB - BLOOD ORDERABLES Performing Organization Address City/[facility]/ZIP [facility] Phon e Number [facility] [address] [place] [address] (ABNORMAL) CBC with platelets (04/26/2015 8:26 AM HUMAN INTELLIGENCE) athologist Signature WBC 4.7 4.0 - 11.0 [facility] 10e9/L [facility] RBC Count 4.41 3.8 - 5.2 [facility] 10e12/L [facility] Hemoglobin 8.4 (L) 11.7 - 15.7 [facility] g/dL [facility] Comment: Results confirmed by repeat mónica t Hematocrit 29.1 (L) 35.0 - 47.0 % [facility] S [place] MCV 66 (L) 78 - 100 fl [facility] R [facility] MCH 19.0 (L) 26.5 - 33.0 pg [facility] MCHC 28.9 (L) 31.5 - 36.5 g/dL [facility] Comment: Results confirmed by repeat mónica t RDW 16.7 (H) 10.0 - 15.0 % [facility] Platelet Count 321 150 - 450 10e9/L [facility] Specimen Anatomical Collection Method Collection Time Receive d Time (Source) Location / / Volume Laterality Blood specimen 04/26/2015 8:26 AM 016 8:27 (specimen) HUMAN INTELLIGENCE AM HUMAN INTELLIGENCE Gina Palumbo PA-C LAB - BLOOD ORDERABLES Performing Organization Address City/[facility]/ZIP Code Phon e Number [facility] [address] [place], [place] [address] LIPID REFLEX TO DIRECT LDL PANEL (04/26/2015 8:26 AM HUMAN INTELLIGENCE) P athologist Signature Cholesterol 109 <200 mg/dL [facility] Triglycerides 70 <150 mg/dL [facility] Comment: Fasting specimen HDL Cholesterol 54 >49 mg/dL [facility]INI CS [facility] LDL Cholesterol Calculated 41 <100 mg/dL [facility] Comment: Desirable: <100 mg/dl Non HDL Cholesterol 55 <130 mg/dL [facility] Specimen Anatomical Collection Method Collection Time Receive d Time (Source) Location / / Volume Laterality Blood specimen 04/26/2015 8:26 AM 016 8:27 (specimen) HUMAN INTELLIGENCE AM HUMAN INTELLIGENCE Gina Palumbo PA-C LAB - BLOOD ORDERABLES Performing Organization Address City/[facility]/ZIP Code Phon e Number [facility] [address] [place] [address] UA reflex to Microscopic and Culture (04/25/2015 12:44 PM HUMAN INTELLIGENCE) [facility] gist Method Time Signature Color Urine Yellow [facility] [place] Appearance Urine Clear [facility] Glucose Urine Negative NEG mg/dL [facility] Bilirubin Urine Negative NEG [facility] Ketones Urine Negative NEG mg/dL [facility] Specific [place] 1.025 1.003 - [facility] Urine 1.035 [facility] Blood Urine Negative NEG [facility] pH Urine 5.5 5.0 - 7.0 [facility] pH [facility] Protein Albumin Negative NEG mg/dL [facility] Urine [facility] Urobilinogen 0.2 0.2 - 1.0 [facility] Urine EU/dL [facility] Nitrite Urine Negative NEG [facility] Leukocyte Negative NEG [facility] Esterase Urine [facility] Source Midstream [facility] Urine [facility] Specimen Anatomical Collection Method Collection Time Receive d Time (Source) Location / / Volume Laterality Urine specimen 04/25/2015 12:44 6 (specimen) PM HUMAN INTELLIGENCE 12:45 PM HUMAN INTELLIGENCE Gina Palumbo PA-C LAB - URINE ORDERABLES Performing Organization Address City/[facility]/ZIP Code Phon e Number [facility] [address] [place], [place] [address] documented in this encounter [...] documented as of this encounter Care Teams Special Events Driver Relationship Specialty Start Date End Date Gina Palumbo, PCP - General Physician Digital Cartographer 5 09/03/21 PA-C [id number] [id number] Gina Palumbo, PCP - Assigned PCP 01/12/15 05/11/18 PA-C [id number], [place] [phone] Gina Palumbo, Physician Digital Cartographer 01/31/15 PA-C [id number] [address] [phone] Gina Palumbo, Assigned PCP 01/12/15 PA-C 97198 [address] [phone] documented as of this encounter
--- OUTSIDE RECORDS SUMMARY | 2021-11-26 12:59 | XMS_ITS | Encounter Summary ---
:1985 Author Organization [place] Address [address] [place] [address]. [place] [address] Care Team Providers Name Role Phone Gina Bautista PA-C Primary Care Provider [phone] Gina Bautista PA-C Unavailable [phone] Gina Bautista PA-C Unavailable [phone] Gina Bautista PA-C Unavailable [phone] Encounter Details Date Type Department Care Team Description 04/27/2015 Telephone [facility] Lyle Bautista [place] PA-C [address] [address] [place] [phone] [place] [id number] (Wo rk) Social History Tobacco Use Types Packs/Day Years Used Date Never Smoker Smokeless Tobacco: Never Used Alcohol Use Standard Drinks/Week Comments Yes 0 (1 standard drink = 0.6 oz pure alcoho l) Sex Assigned at Date Recorded Not on file documented as of this encounter Miscellaneous Notes Telephone Encounter - Gina Bautista PA-C - 04/27/2015 8:25 AM DRY CLEANER APPRENTICE Spoke with patient regarding labs. Will restart Synthroid 75mcg daily, recheck in 6-8 weeks Discussed low hemoglobin, will have her get labs today and then start iron replacement BID, recheck in 6-8 weeks as well. Discussed remained of labs. Gina Bautista PA-C CLEANER APPRENTICE Telephone Encounter - Monica Tony CMA - 04/27/2015 8:20 AM CST Per patient, placed letter at motel front desk attendant for patient excelsior picker Marianne Chavo CAMPOS (AAMO) 04/27/2015 8:21 AM CLEANER APPRENTICE Telephone Encounter - Gina Bautista PA-C - 04/27/2015 8:13 AM DRY CLEANER APPRENTICE Left Vm for patient, would like to discuss labs results. Gina Bautista PA-C CLEANER APPRENTICE documented in this encounter Plan of Treatment Upcoming Encounters Date Type Specialty Care Team Description 01/07/2022 Virtual Visit Endocrinology Natalya Jean MD [address] [place] [address] (Wo rk) documented as of this encounter Visit Diagnoses Not on filedocumented in this encounter Additional Health Concerns Assessment Noted Time PHQ-9 Depression Total Score: 16 04/26/2015 8:54 AM CS T documented as of this encounter Care Teams Clinical Programmer Relationship Specialty Start Date End Date Gina Bautista, PCP - General Physician Coat Repair Inspector 5 09/03/21 [place] [address] [address] [address] Gina Bautista PCP - Assigned PCP 01/12/15 05/11/18 [place] [address] [address] [address] Gina Bautista, Physician Coat Repair Inspector 01/31/15 [place] [address] [place] [address] Gina Bautista, Assigned PCP 01/12/15 [place] [address] [place] [address] documented as of this encounter
--- OUTSIDE RECORDS SUMMARY | 2021-11-26 12:59 | XMS_ITS | Encounter Summary ---
:1985 Author Organization [facility] Address [address] [place] [address]. [place] [address] Care Team Providers Name Role Phone Gina Bautista PA-C Primary Care Provider [phone] Gina Bautista PA-C Unavailable [phone] Gina Bautista PA-C Unavailable [phone] Gina Bautista PA-C Unavailable [phone] Reason for Visit Reason Comments Cough x 3-4 days Derm Problem x 1 day Encounter Details Date Type Department Care Team Description 01/31/2015 Office Visit [facility] Gina Bautista litis and abscess of leg (Primary Dx); Clinic Jigna Vance PA-C Upper respiratory tract infection, unspe cified upper respiratory infection [address] [address] [address] [place] [facility] [place] 55 [id number] [phone] Social History Tobacco Use Types Packs/Day Years Used Date Never Smoker Smokeless Tobacco: Never Used Alcohol Use Standard Drinks/Week Comments Yes 0 (1 standard drink = 0.6 oz pure alcoho l) Sex Assigned at Date Recorded Not on file documented as of this encounter Last Filed Vital Signs Vital Sign Reading Time Taken Comments Blood Pressure 108/56 01/31/2015 3:14 PM DOG GROOMER Pulse 82 01/31/2015 3:14 PM DOG GROOMER Temperature 36.7 ??C (98.1 ??F) 01/31/2015 3:14 PM DOG GROOMER Respiratory Rate 18 01/31/2015 3:14 PM DOG GROOMER Oxygen Saturation 99% 01/31/2015 3:14 PM DOG GROOMER Inhaled Oxygen Concentration - - Weight 82.4 kg (181 lb 9.6 oz) 01/31/2015 3:14 PM DOG GROOMER Height 167.6 cm (5' 6) 01/31/2015 3:14 PM DOG GROOMER Body Mass Index 29.31 01/31/2015 3:14 PM DOG GROOMER documented in this encounter Progress Notes Gina [...] care. Gina Bautista PA-C [facility] GROOMER documented in this encounter Nursing Notes Monica [...] phone number for results from this visit [phone] Marianne Tony CMA (AAMA) 01/31/2015 3:16 PM GROOMER documented in this encounter Plan of Treatment Upcoming Encounters Date Type Specialty Care Team Description 01/07/2022 Virtual Visit Endocrinology Natalya Jean MD [address] [place] [address] (Wo rk) documented as of this encounter Visit Diagnoses Diagnosis Cellulitis and abscess of leg - Primary Cellulitis and abscess of leg, except fo ot Upper respiratory tract infection, unspe cified upper respiratory infection documented in this encounter Additional Health Concerns Assessment Noted Time PHQ-9 Depression Total Score: 13 02/01/2015 7:29 AM CS T documented as of this encounter Care Teams Guidance Consultant Relationship Specialty Start Date End Date Gina Bautista PCP - General Physician Clay Dry Press Helper 5 09/03/21 [place] [address] [address] [address] Gina Bautista, PCP - Assigned PCP 01/12/15 05/11/18 PA-C [address] [place] [address] Gina Bautista, Physician Clay Dry Press Helper 01/31/15 PA-C [address] [place] [address] Gina Bautista, Assigned PCP 01/12/15 PA-C [address] [place] [address] documented as of this encounter
--- OUTSIDE RECORDS SUMMARY | 2021-11-26 12:59 | XMS_ITS | Encounter Summary ---
:1985 Author Organization [facility] Address [address] [place] [address]. [place] [address] Care Team Providers Name Role Phone Gina Bautista PA-C Primary Care Provider [phone] Gina Bautista PA-C Unavailable [phone] Gina Bautista PA-C Unavailable [phone] Gina Bautista PA-C Unavailable [phone] Reason for Visit Reason Comments Panel Management Needs PAP Encounter Details Date Type Department Care Team Description 03/13/2015 [facility] Jigna Vance PA-C (Needs PAP ) [id number] [phone] [id number] Social History Tobacco Use Types Packs/Day Years [...] for provider review: None Marianne Tony CMA (AAFL) 03/13/2015 3:48 PM PING TRACK SUPERVISOR documented in this encounter Plan of Treatment Upcoming Encounters Date Type Specialty Care Team Description 01/07/2022 Virtual Visit Endocrinology Natalya Jean MD [address] [place] [address] (Wo rk) documented as of this encounter Visit Diagnoses Not on filedocumented in this encounter Additional Health Concerns Assessment Noted Time PHQ-9 Depression Total Score: 13 02/01/2015 7:29 AM CS T documented as of this encounter Care Teams Doping Supervisor Relationship Specialty Start Date End Date Gina Bautista, PCP - General Physician Truck Trailer Final Inspector 5 09/03/21 PA-C 91023 [place] [address] Gina Bautista, PCP - Assigned PCP 01/12/15 05/11/18 PA-C 97710 [place] [address] Gina Bautista, Physician Truck Trailer Final Inspector 01/31/15 PA-C 48730 [place] [address] Gina Bautista, Assigned PCP 01/12/15 PA-C 66573 [place] DUVALL [address] documented as of this encounter
--- OUTSIDE RECORDS SUMMARY | 2021-11-26 12:59 | XMS_ITS | Encounter Summary ---
:1985 Author Organization [facility] Address [address] [place] [address]. [place] [address] Care Team Providers Name Role Phone Gina Bautista PA-C Primary Care Provider [phone] Gina Bautista PA-C Unavailable [phone] Gina Bautista PA-C Unavailable [phone] Gina Bautista PA-C Unavailable [phone] Encounter Details Date Type Department Care Team Description 04/27/2015 Orders Only [facility] Iro n deficiency anemia, [place] [facility] unspecified iron [address] [place] [address] Social History Tobacco Use Types Packs/Day [...] [address] [place], [place] [address] (Wo rk) documented as of this encounter Procedures Procedure Name Priority Date/Time Associated Diagnosis Comme nts IRON AND IRON Routine 04/27/2015 11:50 AM Iron deficiency Resu lts for this BINDING CAPACITY GRAVITY PROSPECTOR anemia, unspecified proc edure are in iron deficiency the results section. FERRITIN Routine 04/27/2015 11:50 AM Iron deficiency Resul ts for this GRAVITY PROSPECTOR anemia, unspecified procedur e are in iron deficiency the results section. documented in this encounter Results (ABNORMAL) Iron and iron binding capacity (04/27/2015 11:50 AM GRAVITY PROSPECTOR) Patholo gist Method Time Signature Iron 13 (L) 35 - 180 [facility] ug/dL [facility] Iron Binding 619 (H) 240 - 430 [place] Cap ug/dL [facility] Iron Saturation 2 (L) 15 - 46 % [place] Index [facility] Specimen Anatomical Collection Method Collection Time Receive d Time (Source) Location / / Volume Laterality Blood specimen 04/27/2015 11:50 6 (specimen) AM GRAVITY PROSPECTOR 11:51 AM GRAVITY PROSPECTOR Gina Bautista PA-C LAB - BLOOD ORDERABLES Performing Organization Address City/[facility] Phon e Number [facility] [address] [place] [address] (ABNORMAL) Ferritin (04/27/2015 11:50 AM GRAVITY PROSPECTOR) P athologist Signature Ferritin 2 (L) 12 - 150 [facility] ng/mL [facility] Specimen Anatomical Collection Method Collection Time Receive d Time (Source) Location / / Volume Laterality Blood specimen 04/27/2015 11:50 6 (specimen) AM GRAVITY PROSPECTOR 11:51 AM GRAVITY PROSPECTOR Gina Bautista PA-C LAB - BLOOD ORDERABLES Performing Organization Address City/[facility] Phon e Number [facility] [address] [place] [address] documented in this encounter Visit Diagnoses Diagnosis Iron deficiency anemia, unspecified iron deficiency documented in this encounter Additional Health Concerns Assessment Noted Time PHQ-9 Depression Total Score: 16 04/26/2015 8:54 AM CS T documented as of this encounter Care Teams Surgical Instrument Mechanic Relationship Specialty Start Date End Date Gina Bautista PCP - General Physician Electrical Equipment Assembler 5 09/03/21 [place] [address] [place] DUVALL [id number] Gina Bautista, PCP - Assigned PCP 01/12/15 05/11/18 PA-C 30557 [place] [address] Gina Bautista, Physician Electrical Equipment Assembler 01/31/15 PA-C 39694 [place], [place] [address] Gina Bautista, Assigned PCP 01/12/15 PA-C 26481 [place], [place] [address] documented as of this encounter
--- NOTE | 2021-11-26 13:00 | CRLHL7_ITS ---
For Patients: As a result of the Century Cures Act, medical imaging exams and procedure reports are released immediately into your electronic medical record. You may view this report before your referring provider. If you have questions, please contact your health care provider. INDICATION: F/U FROM ANATOMY SCAN, Suboptimal VIEWS OF SPINE COMPARISON: 11/12/2021 TECHNIQUE: Real time szymanski scale imaging of the fetus was performed. FINDINGS: Sonographic imaging demonstrates a single living intrauterine gestation. Fetus demonstrates a regular cardiac rate of 171 beats per minute. Fetus has a breech position. The placenta lies right fundal posterior. Amniotic fluid volume appears normal and there is a single deepest vertical pocket: 5.4 cm. The cervical, thoracic and lumbar spine are normal. IMPRESSION: Normal spine. Dictated by Ethan Bah MD @ 11/26/2021 2:31:25 PM (Electronically Signed)
== END 2021-11-26 12:57 | disposition home or self-care (01) ==
LOC: US 12:56
PROVIDERS: PCP Internal Medicine; Visit Provider Obstetrics & Gynecology
DX: O09.92 Supervision of high risk pregnancy, unspecified, second trimester (principal); Z87.51 Personal history of pre-term labor; Z3A.22 22 weeks gestation of pregnancy
CPT/HCPCS: 76816

== ENCOUNTER 2021-12-10 12:44 | Outpatient (CLI) | payer BC, SELFPAY ==
--- OUTSIDE RECORDS SUMMARY | 2021-12-10 12:50 | XMS_ITS | Encounter Summary ---
:1985 Author Organization [facility] Address [address] [place] [address]. [place] [address] Care Team Providers Name Role Phone Gina Bautista PA-C Primary Care Provider [phone] Oestrfrances, Gina Vance PA-C Unavailable [phone] OestrGina daniels PA-C Unavailable [phone] Oestrfrances, Gina Vance PA-C Unavailable [phone] Encounter Details Date Type Department Care Team Description 06/11/2017 Hospital Pathology [facility] Results MD Brynn ELECTRICIAN CRANE MAINTENANCE SPECIALIS TS [address] [id number] (Wo rk) Social History Tobacco Use Types [...] [address] [place], [place] [address] (Wo rk) documented as of this encounter Procedures Procedure Name Priority Date/Time Associated Diagnosis Comme [facility] SURGICAL PATHOLOGY Routine 06/11/2017 11:30 AM Re sults for this EXAM CDT procedure are i n the results section. documented in this encounter Results Surgical pathology exam (06/11/2017 11:30 AM CDT) Component Value Ref Test Analysis Performed At [facility] Range Method Time Signature Copath Report Patient Name: CARLEY JO MR#: [id number] Specimen #: [id number] Collected: 06/11/2017 Received: 06/11/2017 Reported: 06/12/2017 14:08 [...] par ts or translucent vesicles are identified. Delivery Assistant sections are submitted in 2 blocks. ??The rem ainder of the specimen is handled per [facility] POC protocol. (Dictated by: ASHLEY Martinez 06/11/2017 03:17 PM) MICROSCOPIC: Microscopic examination is performed. CPT Codes: A: 86742-PN5, SO TESTING LAB LOCATION: [facility] [address] [place] [address] ??[phone] COLLECTION SITE: Client: [facility] And [...] as of this encounter Care Teams Sharepoint Analyst Relationship Specialty Start Date End Date Gina Bautista, PCP - General Physician Communications Manager 5 09/03/21 PA-C [address] [place] [address] Gina Bautista, PCP - Assigned PCP 01/12/15 05/11/18 PA-C 72020 [place], [place] [id number] Gina Bautista, Physician Communications Manager 01/31/15 PA-C 34381 [place] [address] Gina Bautista, Assigned PCP 01/12/15 PA-C 19713 [place] [address] documented as of this encounter
--- OUTSIDE RECORDS SUMMARY | 2021-12-10 12:50 | XMS_ITS | Encounter Summary ---
:1985 Author Organization [facility] Address [address] [place] [address]. [place] [address] Care Team Providers Name Role Phone Gina Bautista PA-C Primary Care Provider [phone] Gina Bautista PA-C Unavailable [phone] Gina Bautista PA-C Unavailable [phone] Gina Bautista PA-C Unavailable [phone] Reason for Visit Reason Onset Date Comments Outreach 05/27/2017 Encounter Details Date Type Department Care Team Description 05/27/2017 Telephone [facility] Lyle Bautista, Outreach Lucia BERNAL [address] [address] [place] [address] [place] [phone] (Wo rk) Social History Tobacco Use Types [...] Panchito Gandhi sent at 04/15/2017 4:53 PM CONCRETE VAULT MAKER ----- Call pt to schedule lab only in next 2 weeks. Labs pended. Panchito Gandhi CMA ([facility]) documented in this encounter Plan of Treatment Upcoming Encounters Date Type Specialty Care Team Description 01/07/2022 Virtual Visit Endocrinology Natalya Jean MD [address] [place] [address] (Wo rk) documented as of this encounter Visit Diagnoses Not on filedocumented in this encounter Additional Health Concerns Assessment Noted Time PHQ-9 Depression Total Score: 10 05/09/2017 8:01 AM CS T documented as of this encounter Care Teams Cleat Layer Relationship Specialty Start Date End Date Gina Bautista, PCP - General Physician Petroleum Geologist 5 09/03/21 PA-C 91308 [place] DUV[place] [address] Gina Bautista, PCP - Assigned PCP 01/12/15 05/11/18 PA-C 63842 [place] DUVALL [address] Gina Bautista, Physician Petroleum Geologist 01/31/15 PA-C 15328 [place] DUVALL [id number] Gina Bautista, Assigned PCP 01/12/15 PA-C 50908 M[place] DUVALL [address] documented as of this encounter
--- OUTSIDE RECORDS SUMMARY | 2021-12-10 12:50 | XMS_ITS | Encounter Summary ---
:1985 Author Organization [place] Address [address] [place] [address]. [place] [address] Care Team Providers Name Role Phone Gina Bautista PA-C Primary Care Provider [phone] Gina Bautista PA-C Unavailable [phone] Gina Bautista PA-C Unavailable [phone] Gina Bautista PA-C Unavailable [phone] Encounter Details Date Type Department Care Team Description 05/08/2017 Office Visit [facility] Lisa Lopez LP Anxiety (Primary Dx) Services [address] [phone] Social History Tobacco Use Types Packs/Day Years [...] her ex spouse. At work, has received [employer] and a perk. But has lots of [...] with spouse. Past hw Use TIP skills iLsa Lopez LP Treatment Plan Client's Name: Carley [...] plan. Lisa Lopez LP February 19, 2017 LE PREP TECHNICIAN documented in this encounter Plan of Treatment Upcoming Encounters Date Type Specialty Care Team Description 01/07/2022 Virtual Visit Endocrinology Natalya Jean MD [address] [place] [address] (Wo rk) documented as of this encounter Visit Diagnoses Diagnosis Anxiety - Primary Anxiety state, unspecified documented in this encounter Additional Health Concerns Assessment Noted Time PHQ-9 Depression Total Score: 10 05/09/2017 8:01 AM CS T documented as of this encounter Care Teams Toy Assembler Wood Relationship Specialty Start Date End Date Gnia Bautista, PCP - General Physician Finishing Manager 5 09/03/21 PA-C [address]96 [place] [address] Gina Bautista, PCP - Assigned PCP 01/12/15 05/11/18 PA-C 37250 [place] [address] Gina Bautista, Physician Finishing Manager 01/31/15 PA-C 05651 [place] [address] Gina Bautista, Assigned PCP 01/12/15 PA-C 89585 [place] [address] documented as of this encounter
--- OUTSIDE RECORDS SUMMARY | 2021-12-10 12:50 | XMS_ITS | Encounter Summary ---
:1985 Author Organization [facility] Address [address] [place] [address]. [place] [address] Care Team Providers Name Role Phone Gina Bautista PA-C Primary Care Provider [phone] Gina Bautista PA-C Unavailable [phone] Vidya Espinal APRN [facility] Unavailable [phone] Clinic, [facility] Unavailable Encounter Details Date Type Department Care Team Description 2021 Medical Correspondence [facility] Scan, ENDOCRINOLOGY Health Info Mgmt Non-Provider REFERRAL [address] [address] Social History Tobacco Use Types [...] [address] [place] [address] (Wo rk) documented as of this encounter Visit Diagnoses Not on filedocumented in this encounter Additional Health Concerns Assessment Noted Time PHQ-9 Depression Total Score: 10 05/09/2017 8:01 AM CS T documented as of this encounter Care Teams Consumer Loan Manager Relationship Specialty Start Date End Date Gina Bautista, PCP - General Physician Hydrator 5 09/03/21 [place] [address] [place] DUVALL [id number] Gina Bautista, Physician Hydrator 01/31/15 [place] [address] [place] DUVALL [id number] Vidya Espinal APRN CNM Community Advocate 08/21/21 [facility] [address] [id number] [facility], [facility] 08/21/[address] [address] documented as of this encounter
--- OUTSIDE RECORDS SUMMARY | 2021-12-10 12:50 | XMS_ITS | Clinical Summary ---
:1985 Author Organization [facility] [place] [address] Care Team Providers Name Role Phone Pcp, [...] = 9 in March; Hgb 10.3 at [facility] before transfer History of delivery [...] if not delivered. 7. contractions with mild agriculture laborer al cervical change, admitted to [facility] and received steroids x 2. It's a [...] 01/16/2023 01/17/2020, 01/17/2020, 12/19/2016 (Completed outside of [facility]) Tetanus booster 04/05/2028 04/05/2018, 03/09/2012 Tdap Completed 04/05/2018, 03/09/2012 Results Not on filefrom Last 3 Months Advance Directives Latest Code Status on File Code Status Date Activated Date Inactivated Comments Full Code 05/25/2018 11:18 PM 05/28/2018 2:46 PM Full Code 05/03/2018 7:52 PM 05/04/2018 5:01 PM Full Code 07/04/2013 11:25 AM 07/04/2013 4:53 PM Care Teams Metallurgical Laboratory Assistant Relationship Specialty Start Date End Date Pcp, No PCP - General 01/15/19 .
--- OUTSIDE RECORDS SUMMARY | 2021-12-10 12:50 | XMS_ITS | Encounter Summary ---
:1985 Author Organization [facility] Address [address] [place] [address] Care Team Providers Name Role Phone Gina Bautista PA-C Primary Care Provider [phone] Gina Bautista PA-C Unavailable [phone] Vidya Espinal APRN [facility] Unavailable [phone] [facility], [facility] Unavailable Reason for Referral Consultation (Urgent: 3-5 Days) - Pending Review Specialty Diagnoses / Procedures Referred By Contact Refer red To Contact Endocrinology, Diagnoses Hypothyroidism System, Provider Not Diabetes, and In Metabolism Referral ID Status Reason Start Date Expiration Date Visits V isits Requested Authorized [id number] Pending 2021 2022 1 1 Review Scheduling [...] Endocrinology Natalya Jean MD [address] [facility] [address] [place] [address] (Wo rk) Scheduled Referrals Name Type Priority Associated Diagnoses Order S chedule Adult Endocrinology Referral Urgent: 3-5 Days Hypothyroidism Ex pected: Correctional Sergeant Referral 2 (Approximate), Expires: 2022 documented as of this encounter Visit Diagnoses Diagnosis Hypothyroidism - Primary Unspecified hypothyroidism documented in this encounter Additional Health Concerns Assessment Noted Time PHQ-9 Depression Total Score: 10 05/09/2017 8:01 AM CS T documented as of this encounter Care Teams Furnace Caretaker Relationship Specialty Start Date End Date Gina Bautista, PCP - General Physician Strand And Binder Controller 5 09/03/21 PALiuC [address] [place] [address] Gina Bautista, Physician Strand And Binder Controller 01/31/15 DOLORES [address] [place] [address] Vidya Espinal APRN CNM Intermodal Owner Operator Truck Driver 08/21/[address] [place] [address] [facility], [facility] 08/21/[address] [address] documented as of this encounter
--- OUTSIDE RECORDS SUMMARY | 2021-12-10 12:50 | XMS_ITS | Encounter Summary ---
:1985 Author Organization [place] Address [address] [place] [address]. [place] [address] Care Team Providers Name Role Phone Gina Bautista PA-C Primary Care Provider [phone] Gina Bautista PA-C Unavailable [phone] Vidya Espinal APRN [facility] Unavailable [phone] Clinic, [facility] Unavailable Encounter Details Date Type Department Care Team Description 08/08/2021 Medical Correspondence [facility] Scan, ENDOCRINOLOGY ORDER Health Info [facility] Non-Provider [facility] [address] [place] [phone] Social History Tobacco Use Types Packs/Day [...] [address] [place], [place] [address] (Wo rk) documented as of this encounter Visit Diagnoses Not on filedocumented in this encounter Additional Health Concerns Assessment Noted Time PHQ-9 Depression Total Score: 10 05/09/2017 8:01 AM CS T documented as of this encounter Care Teams Home Sales Service Professional Relationship Specialty Start Date End Date Gina Bautista, PCP - General Physician Curriculum Facilitator 5 09/03/21 DOLORES [address] [place]UV[place] [id number] Gina Bautista, Physician Curriculum Facilitator 01/31/15 DOLORES [address] [place] DUVALL [id number] Vidya Espinal APRN CNM Lab Nurse 08/21/21 [facility] [address] [phone] [facility], [facility] 08/21/[address] [address] documented as of this encounter
--- OUTSIDE RECORDS SUMMARY | 2021-12-10 12:50 | XMS_ITS | Encounter Summary ---
:1985 Author Organization [facility] Address [address] [place] [address]. [place] [address] Care Team Providers Name Role Phone Gina Bautista PA-C Primary Care Provider [phone] Gina Bautista PA-C Unavailable [phone] Gina Bautista PA-C Unavailable [phone] Gina Bautista PA-C Unavailable [phone] Encounter Details Date Type Department Care Team Description 05/22/[address] [facility] Lisa Lopez LP Anxiety (Primary Dx) Services [address] [phone] Social History Tobacco Use Types Packs/Day Years [...] [address] [place] [address] (Wo rk) documented as of this encounter Visit Diagnoses Diagnosis Anxiety - Primary Anxiety state, unspecified documented in this encounter Additional Health Concerns Assessment Noted Time PHQ-9 Depression Total Score: 10 05/09/2017 8:01 AM CS T documented as of this encounter Care Teams Glass Unloading Equipment Tender Relationship Specialty Start Date End Date Gina Bautista, PCP - General Physician Detailer School Photographs 5 09/03/21 DOLORES [address] [place] [address] Gina Bautista, PCP - Assigned PCP 01/12/15 05/11/18 [place] [address] [place], [place] [address] Gina Bautista, Physician Detailer School Photographs 01/31/15 DOLORES 15[address] [place] [address] Gina Bautista, Assigned PCP 01/12/15 DOLORES 56[address] [place] DUV[place] [address] documented as of this encounter
--- OUTSIDE RECORDS SUMMARY | 2021-12-10 12:50 | XMS_ITS | Encounter Summary ---
:1985 Author Organization [facility] Address [address] [place] [address]. [place] [address] Care Team Providers Name Role Phone Gina Bautista PA-C Primary Care Provider [phone] Michele, Gina Vance PA-C Unavailable [phone] Gina Bautista PA-C Unavailable [phone] Michele, Gina Vance PA-C Unavailable [phone] Encounter Details Date Type Department Care Team Description 11/12/2017 [facility] Lisa Lopez LP Documentation Services [address] [phone] Social History Tobacco Use Types Packs/Day Years [...] [address] [place] [address] (Wo rk) documented as of this encounter Visit Diagnoses Not on filedocumented in this encounter Additional Health Concerns Assessment Noted Time PHQ-9 Depression Total Score: 10 05/09/2017 8:01 AM CS T documented as of this encounter Care Teams Chief Construction Inspector Relationship Specialty Start Date End Date Gina Bautista, PCP - General Physician Umbrella Tipper 5 09/03/21 PA-C [address] [place] [address] Gina Bautista, PCP - Assigned PCP 01/12/15 05/11/18 PA-C [address] [place] [address] Gina Bautista, Physician Umbrella Tipper 01/31/15 PA-C 85026 [place] [address] Gina Bautista, Assigned PCP 01/12/15 PA-C 19208 [place] [address] documented as of this encounter
--- OUTSIDE RECORDS SUMMARY | 2021-12-10 12:50 | XMS_ITS | Encounter Summary ---
:1985 Author Organization [place] Address [address] [place] [address] Care Team Providers Name Role Phone Gina Bautista PA-C Primary Care Provider [phone] Gina Bautista PA-C Unavailable [phone] Encounter Details Date Type Department Care Team [...] Endocrinology Natalya Jean MD [address] [facility] [address] [place], [place] [address] (Wo rk) documented as of this encounter [...] documented as of this encounter Care Teams Front Loader Residential Driver Relationship Specialty Start Date End Date Gina Bautista PA-C PCP - General Physician Juvenile Detention Officer 01/31/15 09/03/21 [address] M[place] DUVALL [id number] Gina Bautista PA-C Physician Juvenile Detention Officer 01/31/15 83517 M[place] DUVALL [address] documented as of this encounter
--- OUTSIDE RECORDS SUMMARY | 2021-12-10 12:50 | XMS_ITS | Clinical Summary ---
:1985 Author Organization [place] Address [address] [place] [address] Care Team Providers Name Role Phone Gina Bautista PA-C Unavailable [phone] Vidya Espinal APRN CNM Unavailable [phone] [facility] Unavailable Marissa Jean MD Unavailable [...] symptoms greater than 10 days fluticasone (FLONASE) Osteen 1-2 sprays 1 Bottle 11 02/22/2017 Active 50 MCG/ACT into both nostrils sprayIndications: daily Acute sinusitis with symptoms greater than 10 days vitamin D Take 1 capsule 12 capsule 0 04/14/2017 Act clayton (ERGOCALCIFEROL) (50,000 [place]) [place] [address] UNIT mouth once a week capsuleIndications: Lab [...] due to acquired atrophy of thyroid 01/09 Immunizations Name Administration Dates Next Due Influenza [...] Comments Blood Pressure 108/62 02/22/2017 11:59 AM DRUPAL WEB DEVELOPER Pulse 61 02/22/2017 11:59 AM DRUPAL WEB DEVELOPER Temperature 36.7 ??C (98.1 ??F) 02/22/2017 11:59 AM DRUPAL WEB DEVELOPER Respiratory Rate 15 12/19/2016 2:53 PM CDT Oxygen Saturation 100% 02/22/2017 11:59 AM DRUPAL WEB DEVELOPER Inhaled Oxygen Concentration - - Weight 79.3 kg (174 lb 12.8 oz) 01/27/2017 1:05 PM DRUPAL WEB DEVELOPER Height 167.6 cm (5' 6) 12/19/2016 2:53 PM CDT Body Mass Index 28.21 12/19/2016 2:53 PM CDT Plan of Treatment Upcoming Encounters Date Type Specialty Care Team Description 01/07/2022 Virtual Visit Endocrinology Natalya Jean MD [address] [place], [place] [phone] (Wo rk) Health Maintenance Due Date Last Done Comments ADVANCE CARE PLANNING 1985 ANNUAL REVIEW OF HM ORDERS 1985 COVID-19 Vaccine (#1) 02/20/1988 PREVENTIVE CARE VISIT 12/19/2017 12/19/2016, 04/25/2015 PHQ-2 (once per calendar 03/09/2021 05/08/2017, 04/24/2017, year) 02/19/2017, Additional history exists INFLUENZA VACCINE (#1) 2021 01/17/2020, 11/10/2017, 12/19/2016, Additional history exists HPV TEST 01/16/2023 01/17/2020 [...] e / Group Dates MEDICA MEDICA CHOICE [id number] 2016-Pres [phone] [place] [address] [place] [id number] 2021-Pres [phone] [address] Indemnity 1 ent [phone] [place] [address] [facility] [id number] 2016-Pres [address] PPO BEHAVIORAL ent [id number] [place] [address] [facility] 1985 [facility] ([place] [place] [address] Care Teams Vascular Manager Relationship Specialty Start Date End Date Violette Bolden CNM PCP - General 09/04/21 [facility] [address] [place] [address] Gina Bautista, Physician Livestock Showman 01/31/15 PA[facility]i [address] [place], [place] [id number] Vidya Espinal APRN CNM Rip Sawyer 08/21/[address] [place] [id number] Clinic, [facility] 08/21/21 [facility] [address] [place] [address] Marissa Jean MD Hospitalist Endocrinology, 09/04/21 [address] Diabetes, and [address] Metabolism [place], [place] [id number]
--- OUTSIDE RECORDS SUMMARY | 2021-12-10 12:51 | XMS_ITS | Encounter Summary ---
:1985 Author Organization [place] Address [address] [place] [address]. [place] [address] Care Team Providers Name Role Phone Gina Bautista PA-C Primary Care Provider [phone] Gina Bautista PA-C Unavailable [phone] Gina Bautista PA-C Unavailable [phone] Gina Bautista PA-C Unavailable [phone] Reason for Visit Reason Comments Panel Management Needs PAP Encounter Details Date Type Department Care Team Description 03/13/2015 [facility] Jigna Vance PA-C (Needs PAP ) [address] [address] [id number] Social History Tobacco Use Types Packs/Day Years Used Date Never Smoker Smokeless Tobacco: Never Used Alcohol Use Standard Drinks/Week Comments Yes 0 (1 standard drink = 0.6 oz pure alcoho l) Sex Assigned at Date Recorded Not on file documented as of this encounter Progress Notes Monica oTny CMA - 03/13/2015 3:48 PM CST Panel Management Review Patient has the following on her problem list: N/A Composite cancer screening Chart review shows that this patient is due/due soon for the following Pap Smear Summary: Patient is due/failing the following: PAP Action needed: Patient needs office visit for PAP. Type of outreach: Sent letter. Questions for provider review: None Marianne Tony CMA (AAMO) 03/13/2015 3:48 PM MEDICAL TECHNICIAN documented in this encounter Plan of Treatment Upcoming Encounters Date Type Specialty Care Team Description 01/07/2022 Virtual Visit Endocrinology Natalya Jean MD [address] [place] [address] (Wo rk) documented as of this encounter Visit Diagnoses Not on filedocumented in this encounter Additional Health Concerns Assessment Noted Time PHQ-9 Depression Total Score: 13 02/01/2015 7:29 AM CS T documented as of this encounter Care Teams Director Craft Center Relationship Specialty Start Date End Date Gina Bautista, PCP - General Physician Rn L And D 5 09/03/21 PA-C [address] [place] [address] Gina Bautista, PCP - Assigned PCP 01/12/15 05/11/18 PA-C 36016 [place] [address] Gina Bautista, Physician Rn L And D 01/31/15 PA-C [address]3484 [place] [address] Gina Bautista, Assigned PCP 01/12/15 PA-C [address]8214 [place] [address] documented as of this encounter
--- OUTSIDE RECORDS SUMMARY | 2021-12-10 12:51 | XMS_ITS | Encounter Summary ---
:1985 Author Organization [place] Address [address] [place] [address]. [place] [address] Care Team Providers Name Role Phone Gina Bautista PA-C Primary Care Provider [phone] Gina Bautista PA-C Unavailable [phone] Gina Bautista PA-C Unavailable [phone] Gina Bautista PA-C Unavailable [phone] Reason for Visit Reason Onset Date Comments Patient Request for Note/Letter 04/26/2015 Encounter Details Date Type Department Care Team Description 04/26/2015 Telephone [facility] Gina Bautista Request for Clinic Jigna Vance PA-C Note/Letter [address] [address] [address] [place] [facility] [place] [address] [phone] Social History Tobacco Use Types Packs/Day Years Used Date Never Smoker Smokeless Tobacco: Never Used Alcohol Use Standard Drinks/Week Comments Yes 0 (1 standard drink = 0.6 oz pure alcoho l) Sex Assigned at Date Recorded Not on file documented as of this encounter Miscellaneous Notes Telephone Encounter - Gina Bautista PA-C - 04/27/2015 8:14 AM LANDSCAPING MANAGER Note for patient provided for missed work, given to Meg. Gina Bautista PA-C SCAPING MANAGER Telephone Encounter - Irma Boggs, RN - [...] pcp in office Thursday. Irma Boggs RN SCAPING MANAGER documented in this encounter Plan of Treatment Upcoming Encounters Date Type Specialty Care Team Description 01/07/2022 Virtual Visit Endocrinology Natalya Jean MD [address] [facility] [address] [place], [place] [address] (Wo rk) documented as of this encounter Visit Diagnoses Not on filedocumented in this encounter Additional Health Concerns Assessment Noted Time PHQ-9 Depression Total Score: 16 04/26/2015 8:54 AM CS T documented as of this encounter Care Teams Principal Software Engineer Relationship Specialty Start Date End Date Gina Bautista, PCP - General Physician Transportation Inspector 5 09/03/21 [facility] [address] [place] [address] Gina Bautista, PCP - Assigned PCP 01/12/15 05/11/18 [place] [address] [place] [address] Gina Bautista, Physician Transportation Inspector 01/31/15 [place] [address] [place] [address] Gina Bautista, Assigned PCP 01/12/15 [place] [address] [address] [place], [place] [address] documented as of this encounter
--- OUTSIDE RECORDS SUMMARY | 2021-12-10 12:51 | XMS_ITS | Encounter Summary ---
:1985 Author Organization [place] Address [address] [place] [address]. [place] [address] Care Team Providers Name Role Phone Gina Bautista PA-C Primary Care Provider [phone] Oestrfrances, Gina Vance PA-C Unavailable [phone] Oestrfrances, Gina Vance PA-C Unavailable [phone] Oestrfrances, Gina Vance PA-C Unavailable [phone] Reason for Visit Reason Comments IUD Encounter Details Date Type Department Care Team Description 01/27/2017 Office Visit [facility] Nadine Monreal Encou nter for IUD removal (Primary Dx); [facility] Encounter for preconception consultation [facility] [address] [place] [address] [facility] [address] [place], [place] (Work) [address] [phone] Social History Tobacco Use Types Packs/Day Years Used Date Never Smoker Smokeless Tobacco: Never Used Alcohol Use Standard Drinks/Week Comments Yes 0 (1 standard drink = 0.6 oz pure alcoho l) Sex Assigned at Date Recorded Not on file documented as of this encounter Last Filed Vital Signs Vital Sign Reading Time Taken Comments Blood Pressure 100/60 01/27/2017 1:05 PM MERCH[employer]ISING INTERNSHIP Pulse - - Temperature - - Respiratory Rate - - Oxygen Saturation - - Inhaled Oxygen Concentration - - Weight 79.3 kg (174 lb 12.8 oz) 01/27/2017 1:05 PM [employer] INTER[employer] Height - - Body Mass Index 28.21 [...] muscle every 30 days vitamin D (ERGOCALCIFEROL) 74495 UNIT capsule Take 1 capsule (50,000 Units) [...] with hematology as needed. Nadine Monreal MD [facility] [employer] documented in this encounter Nursing Notes Nataliia [...] 12.8 oz (79.3 kg). Medication Reconciliation: complete [employer] documented in this encounter Plan of Treatment Upcoming Encounters Date Type Specialty Care Team Description 01/07/2022 Virtual Visit Endocrinology Natalya Jean MD [address] [place] [address] (Wo rk) documented as of this encounter Procedures Procedure Name Priority Date/Time Associated Diagnosis Comme nts HC REMOVE INTRAUTERINE Routine 01/27/2017 1:33 PM Encounter fo r IUD DEVICE [employer] removal documented in this encounter Visit Diagnoses Diagnosis Encounter for IUD removal - Primary Encounter for removal of intrauterine co ntraceptive device Encounter for preconception consultation documented in this encounter Additional Health Concerns Assessment Noted Time PHQ-9 Depression Total Score: 7 12/19/2016 3:37 PM CDT documented as of this encounter Care Teams Research Technician Relationship Specialty Start Date End Date Gina Bautista, PCP - General Physician Data Examination Clerk 5 09/03/21 PALiuC [address] [place] [address] Gina Bautista, PCP - Assigned PCP 01/12/15 05/11/18 PA-C [address] [address] [place], [place] [address] Gina Bautista, Physician Data Examination Clerk 01/31/15 PA-C 61582 [place] [address] Gina Bautista, Assigned PCP 01/12/15 PA-C [address]84 [place] [address] documented as of this encounter
--- OUTSIDE RECORDS SUMMARY | 2021-12-10 12:51 | XMS_ITS | Encounter Summary ---
:1985 Author Organization [place] Address [address] [place] [address]. [place] [address] Care Team Providers Name Role Phone Gina Bautista PA-C Primary Care Provider [phone] Gina Bautista PA-C Unavailable [phone] Gina Bautista PA-C Unavailable [phone] Gina Bautista PA-C Unavailable [phone] Reason for Visit Reason Onset Date Comments Refill Request 04/14/2017 Encounter Details Date Type Department Care Team Description 04/14/2017 Telephone [facility] Lyle Bautista Refill Request Lucia Vance PA-C [address] [address] [place] [address] [place] [address] [phone] (Wo rk) Social History Tobacco Use Types [...] in 6-8 weeks. Panchito Gandhi CMA (AAMA) ABAP DEVELOPER Telephone Encounter - Gina Bautista PA-C - 04/14/2017 12:48 PM SAP ABAP DEVELOPER Lab orders futured and rx sent to pharmacy. Please notify patient should schedule lab only visit in 6-8 weeks, will check TSH and Vit D. 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 - Primary Vitamin D deficiency Unspecified vitamin D deficiency documented in this encounter Additional Health Concerns Assessment Noted Time PHQ-9 Depression Total Score: 9 02/19/2017 2:07 PM SAP ABAP DEVELOPER documented as of this encounter Care Teams Special Weapons Unit Officer Relationship Specialty Start Date End Date Gina Bautista, PCP - General Physician Vessel Scrapper 5 09/03/21 [facility]C [address] [place] [address] Gina Bautista, PCP - Assigned PCP 01/12/15 05/11/18 [place] [address] [place] [address] Gina Bautista, Physician Vessel Scrapper 01/31/15 [place] [address] [place] [address] Gina Bautista, Assigned PCP 01/12/15 PALiuC [address] [place] [address] documented as of this encounter
--- OUTSIDE RECORDS SUMMARY | 2021-12-10 12:51 | XMS_ITS | Encounter Summary ---
:1985 Author Organization [place] Address [address] [place] [address]. [address] Care Team Providers Name Role Phone Unavailable Primary Care Provider Unavailable Encounter Details Date Type Department Care Team Description 07/21/2004 Historic Short Order Cook INTERFACED REPORT Ilana Levy Social History Tobacco Use Types Packs/Day Years Used Date Never Assessed Sex Assigned at Date Recorded Not on file documented as of this encounter Progress Notes Interface, Short Order Cook - 02/12/2011 3:18 AM MOTION STUDY TECHNICIAN : 89 CHIEF COMPLAINT: Ankle and knee [...] EPIDEMIOLOGIC HISTORY: Patient attends school. They visited [place] in May 2004. PHYSICAL EXAMINATION: VITAL SIGNS: [...] appointment. [id number] KELLIE LEVY MD [place]: Document: [id number] CC: KELLIE LEVY MD [place], [place] Name: MR#: CARLEY CHAN -23 EMERGENCY ROOM ENCOUNTER Page 2 of 2 LCN: ERC DSC: 07/21/2004 [place], [place] Name: MR#: CARLEY CHAN [id number] : Admit Date: Account #: 1985 07/21/2004 [id number] Doctor: KELLIE LEVY MD EMERGENCY ROOM ENCOUNTER Page 1 of 2 ON STUDY TECHNICIAN documented in this encounter Plan of Treatment Upcoming Encounters Date Type Specialty Care Team Description 01/07/2022 Virtual Visit Endocrinology Natalya Jean MD [address] [place] [address] (Wo rk) documented as of this encounter Visit Diagnoses Not on filedocumented in this encounter
--- OUTSIDE RECORDS SUMMARY | 2021-12-10 12:51 | XMS_ITS | Encounter Summary ---
:1985 Author Organization [place] Address [address] [place] [address]. [place] [address] Care Team Providers Name Role Phone Gina Bautista PA-C Primary Care Provider [phone] Gina Bautista PA-C Unavailable [phone] Gina Bautista PA-C Unavailable [phone] Gina Bautista PA-C Unavailable [phone] Reason for Visit Reason Comments URI Encounter Details Date Type Department Care Team Description 06/25/2015 Office Visit [facility] Serum, Ro Viral URI (Primary Dx); Yony Yarbrough MD Acute pharyngitis, unspecified etiology [address] [facility] [place] [address] [place] [phone] [address] [place], [place] [address] Social History Tobacco Use [...] list, Allergies, and Medical/Social/Surgical histories reviewed in [facility] andupdated as appropriate. OBJECTIVE: BP 96/56 mmHg [...] Follow up with Provider - alexis Salgado [facility] YONY documented in this encounter Nursing Notes [...] [address] [place] [address] (Wo rk) documented as of this encounter [...] Component Value Ref Test Analysis Performed At [facility] [employer] Range Method Time Signature Specimen Throat [facility] YONY Culture Micro No Beta [place] Streptococcus [facility] isolated YONY Micro Report FINAL 06/27/2015 [facility] YONY Specimen Anatomical Collection Method Collection Time Receive d Time (Source) Location / / Volume Laterality 06/25/2015 5:20 PM 6 5:25 CDT PM CDT Ro Salgado MD LAB - MICRO GENERAL ORDERABL ES Performing Organization Address City/State/ZIP Code Phon e Number [facility] [address] [facility] [place] [address] Strep, Rapid Screen (06/25/2015 5:20 PM CDT) Component Value Ref Test Analysis Performed At [facility] [employer] Range Method Time Signature Specimen Throat [facility] YONY Rapid Strep A NEGATIVE: No Group A strepto coccal antigen detected by immunoassay, await [place] Screen culture report. CLINICS Y[place]Y Micro Report FINAL 06/25/2015 [place] Status CLINICS YONY Specimen Anatomical Collection Method Collection Time Receive d Time (Source) Location / / Volume Laterality Specimen from 06/25/2015 5:20 PM 06/25/19 16 5:25 throat CDT PM CDT (specimen) Ro Salgado MD LAB - MICRO GENERAL ORDERABL ES Performing Organization Address City/State/ZIP Code Phon e Number [facility] YONY [address] [facility] [place] [address] documented in this encounter Visit Diagnoses Diagnosis Viral URI - Primary Acute upper respiratory infections of un specified site Acute pharyngitis, unspecified etiology documented in this encounter Additional Health Concerns Assessment Noted Time PHQ-9 Depression Total Score: 16 04/26/2015 8:54 AM CS T documented as of this encounter Care Teams Elementary School Counselor Relationship Specialty Start Date End Date Gina Bautista, PCP - General Physician Central Supply Worker 5 09/03/21 PA-C [address] [address] [place], [place] [address] Gina Bautista, PCP - Assigned PCP 01/12/15 05/11/18 PA-C 24870 [place] [address] Gina Bautista, Physician Central Supply Worker 01/31/15 PALiu[facility] [address] [place] [address] Gina Bautista, Assigned PCP 01/12/15 PA-C [address]6439 [place] [address] documented as of this encounter
--- OUTSIDE RECORDS SUMMARY | 2021-12-10 12:51 | XMS_ITS | Encounter Summary ---
:1985 Author Organization [facility] Address [address] [place] [address]. 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; [address] Adjustment disorder with dep ressed mood; [place] [address] Iron deficiency anemia, unspecified iron deficiency [id number] [...] Comments Blood Pressure 126/62 04/25/2015 1:02 PM DAIRY CATTLE FARM WORKER Pulse 80 04/25/2015 1:02 PM DAIRY CATTLE FARM WORKER Temperature 36.6 ??C (97.9 ??F) 04/25/2015 1:02 PM DAIRY CATTLE FARM WORKER Respiratory Rate 16 04/25/2015 1:02 PM DAIRY CATTLE FARM WORKER Oxygen Saturation 100% 04/25/2015 1:02 PM DAIRY CATTLE FARM WORKER Inhaled Oxygen Concentration - - Weight 82.1 kg (181 lb) 04/25/2015 1:02 PM DAIRY CATTLE FARM WORKER Height 167 cm (5' 5.75) 04/25/2015 1:02 PM DAIRY CATTLE FARM WORKER Body Mass Index 29.44 04/25/2015 1:02 PM DAIRY CATTLE FARM WORKER documented in this encounter Patient Instructions Patient [...] months for an exam and cleaning. ?? Y CATTLE FARM WORKER documented in this encounter Progress Notes [...] Maxwell and colleagues,with an educational kenia from [employer].) 04/25/2015 01/31/2015 Q1: Little interest or pleasure [...] LDL, TRIG, CHOLHDLRATIO, NHDL in the last [id number] hours. Reviewed orders with patient. Reviewed health maintenance and updated orders accordingly - Yes Mammo Decision Support: Mammogram not appropriate for this patient based on age. Last Mammo:No results found. History of abnormal Pap smear: NO - age 21-29 PAP every 3 years recommended All Histories reviewed and updated in [facility]. 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 Patient [...] Preventive Guidelines Dietary Guidelines for Americans, 2010 [employer] Gina Palumbo PA-C [facility] Y CATTLE FARM WORKER documented in this encounter Nursing Notes [...] phone number for results from this visit [phone] OK to leave message Marianne Tony CMA (AAMA) 04/25/2015 1:03 PM Y CATTLE FARM WORKER documented in this encounter Miscellaneous Notes Addendum Note - Gina Palumbo PA-C - 04/27/2015 8:25 AM DAIRY CATTLE FARM WORKER Addended by: GINA PALUMBO on: 04/27/2015 08:25 AM Modules accepted: Orders Y CATTLE FARM WORKER documented in this encounter Plan of Treatment Upcoming Encounters Date Type Specialty Care Team Description 01/07/2022 Virtual Visit Endocrinology Natalya Jean MD [address] [place] [address] (Wo rk) documented as of this encounter Procedures Procedure Name Priority Date/Time Associated Comments Diagnosis UA MACROSCOPIC WITH Routine 04/25/2015 12:44 Encounter for Res ults for this REFLEX TO MICROSCOPIC PM DAIRY CATTLE FARM WORKER routine adult priscilla caballero are in AND CULTURE physical exam with the resul ts abnormal findings section. documented in this encounter Results (ABNORMAL) Iron and iron binding capacity (04/27/2015 11:50 AM DAIRY CATTLE FARM WORKER) [facility] g[facility] Method Time Signature Iron 13 (L) 35 - 180 [place] ug/dL [facility] Iron Binding 619 (H) 240 - 430 [place] Cap ug/dL [facility] Iron Saturation 2 (L) 15 - 46 % [place] Index [facility] Specimen Anatomical Collection Method Collection Time Receive d Time (Source) Location / / Volume Laterality Blood specimen 04/27/2015 11:50 6 (specimen) AM DAIRY CATTLE FARM WORKER 11:51 AM DAIRY CATTLE FARM WORKER Gina Palumbo PA-C LAB - BLOOD ORDERABLES Performing Organization Address City/[facility]/ZIP Code Phon e Number [facility] [address] [place] [address] (ABNORMAL) Ferritin (04/27/2015 11:50 AM DAIRY CATTLE FARM WORKER) athologist Signature Ferritin 2 (L) 12 - 150 [facility] ng/mL [facility] Specimen Anatomical Collection Method Collection Time Receive d Time (Source) Location / / Volume Laterality Blood specimen 04/27/2015 11:50 6 (specimen) AM DAIRY CATTLE FARM WORKER 11:51 AM DAIRY CATTLE FARM WORKER Gina Palumbo PA-C LAB - BLOOD ORDERABLES Performing Organization Address City/State/ZIP Code Phon e Number [facility] [address] [place] [address] (ABNORMAL) TSH with free T4 reflex (04/26/2015 8:26 AM DAIRY CATTLE FARM WORKER) P athologist Signature TSH 7.92 (H) 0.40 - [facility] 4.00 mU/L [facility] Specimen Anatomical Collection Method Collection Time Receive d Time (Source) Location / / Volume Laterality Blood specimen 04/26/2015 8:26 AM 016 8:27 (specimen) DAIRY CATTLE FARM WORKER AM DAIRY CATTLE FARM WORKER Gina Palumbo PA-C LAB - BLOOD ORDERABLES Performing Organization Address City/State/ZIP Code Phon e Number [facility] [address] [place] [address] (ABNORMAL) Comprehensive metabolic panel (04/26/2015 8:26 AM DAIRY CATTLE FARM WORKER) [facility] gist Method Time Signature Sodium 140 133 - 144 [place] mmol/L [facility] Potassium 4.1 3.4 - 5.3 [place] mmol/L [facility] Chloride 109 94 - 109 [place] mmol/L [facility] Carbon Dioxide 23 20 - 32 [place] mmol/L [facility] Anion Gap 8 3 - 14 [place] mmol/L [facility] Glucose 87 70 - 99 [place] mg/dL [facility] Urea Nitrogen 10 7 - 30 [place] mg/dL [facility] Creatinine 0.74 0.52 - [facility] 1.04 [facility]IN[facility] mg/dL [facility] GFR Estimate >90 >60 [place] Non GFR Calc mL/min/1. CLINICS 7m2 [facility] GFR Estimate If >90 >60 [place] Black GFR Calc mL/min/1. CLIN ICS 7m2 [facility] Calcium 8.3 (L) 8.5 - [facility] 10.1 CLINICS mg/dL [facility] Bilirubin Total 0.5 0.2 - 1.3 [place] mg/dL [facility] Albumin 3.8 3.4 - 5.0 [place] g/dL [facility] Protein Total 7.4 6.8 - 8.8 [place] g/dL [facility] Alkaline 71 40 - 150 [place] Phosphatase U/L [facility] ALT 19 0 - 50 [place] U/L [facility] AST 14 0 - 45 [place] U/L [facility] Specimen Anatomical Collection Method Collection Time Receive d Time (Source) Location / / Volume Laterality Blood specimen 04/26/2015 8:26 AM 016 8:27 (specimen) DAIRY CATTLE FARM WORKER AM DAIRY CATTLE FARM WORKER Gina Palumbo PA-C LAB - BLOOD ORDERABLES Performing Organization Address City/[facility]/ZIP [facility] Phon e Number [facility] [address] [place] [address] (ABNORMAL) CBC with platelets (04/26/2015 8:26 AM DAIRY CATTLE FARM WORKER) athologist Signature WBC 4.7 4.0 - 11.0 [place] 10e9/L [facility] RBC Count 4.41 3.8 - 5.2 [place] 10e12/L [facility] Hemoglobin 8.4 (L) 11.7 - 15.7 [place] g/dL [facility] Comment: Results confirmed by repeat mónica t Hematocrit 29.1 (L) 35.0 - 47.0 % [facility] [place] MCV 66 (L) 78 - 100 fl [facility] R [place] MCH 19.0 (L) 26.5 - 33.0 pg [facility] [place] MCHC 28.9 (L) 31.5 - 36.5 g/dL [place] [facility] Comment: Results confirmed by repeat mónica t RDW 16.7 (H) 10.0 - 15.0 % [facility] Platelet Count 321 150 - 450 10e9/L [facility] Specimen Anatomical Collection Method Collection Time Receive d Time (Source) Location / / Volume Laterality Blood specimen 04/26/2015 8:26 AM 016 8:27 (specimen) DAIRY CATTLE FARM WORKER AM DAIRY CATTLE FARM WORKER Gina Palumbo PA-C LAB - BLOOD ORDERABLES Performing Organization Address City/[facility]/ZIP Code Phon e Number [facility] [address] [place], [place] [address] LIPID REFLEX TO DIRECT LDL PANEL (04/26/2015 8:26 AM DAIRY CATTLE FARM WORKER) P athologist Signature Cholesterol 109 <200 mg/dL [facility] Triglycerides 70 <150 mg/dL [facility] Comment: Fasting specimen HDL Cholesterol 54 >49 mg/dL [place] [facility]INI CS [facility] LDL Cholesterol Calculated 41 <100 mg/dL [facility] Comment: Desirable: <100 mg/dl Non HDL Cholesterol 55 <130 mg/dL [facility] Specimen Anatomical Collection Method Collection Time Receive d Time (Source) Location / / Volume Laterality Blood specimen 04/26/2015 8:26 AM 016 8:27 (specimen) DAIRY CATTLE FARM WORKER AM DAIRY CATTLE FARM WORKER Gina Palumbo PA-C LAB - BLOOD ORDERABLES Performing Organization Address City/[facility]/ZIP Code Phon e Number [facility] [address] [place] [address] UA reflex to Microscopic and Culture (04/25/2015 12:44 PM DAIRY CATTLE FARM WORKER) [facility] gist Method Time Signature Color Urine Yellow [facility] [place] Appearance Urine Clear [place] [facility] Glucose Urine Negative NEG mg/dL [place] [facility] Bilirubin Urine Negative NEG [place] [facility] Ketones Urine Negative NEG mg/dL [facility] Specific [place] 1.025 1.003 - [place] Urine 1.035 [facility] Blood Urine Negative NEG [facility] [place] pH Urine 5.5 5.0 - 7.0 [place] pH [facility] Protein Albumin Negative NEG mg/dL [place] Urine [facility] Urobilinogen 0.2 0.2 - 1.0 [place] Urine EU/dL [facility] Nitrite Urine Negative NEG [place] [facility] Leukocyte Negative NEG [place] Esterase Urine [facility] Source Midstream [place] Urine [facility] Specimen Anatomical Collection Method Collection Time Receive d Time (Source) Location / / Volume Laterality Urine specimen 04/25/2015 12:44 6 (specimen) PM DAIRY CATTLE FARM WORKER 12:45 PM DAIRY CATTLE FARM WORKER Gina Palumbo PA-C LAB - URINE ORDERABLES Performing Organization Address City/[facility]/ZIP Code Phon e Number [facility] [address] [place], [place] [address] documented in this encounter [...] documented as of this encounter Care Teams Dry Cleaner Presser Relationship Specialty Start Date End Date Gina Palumbo, PCP - General Physician Semiconductor Wafers Saw Operator 5 09/03/21 PA-C [id number] [address] [address] Gina Palumbo, PCP - Assigned PCP 01/12/15 05/11/18 PA-C [id number] [address], [place] [id number] Gina Palumbo, Physician Semiconductor Wafers Saw Operator 01/31/15 PA-C [id number] [address] [id number] Gina Palumbo, Assigned PCP 01/12/15 PA-C [id number] [address]ALL [id number] documented as of this encounter
--- OUTSIDE RECORDS SUMMARY | 2021-12-10 12:51 | XMS_ITS | Encounter Summary ---
:1985 Author Organization [facility] Address [address] [place] [address]. [place] [address] Care Team Providers Name Role Phone Gina Bautista PA-C Primary Care Provider [phone] Gina Bautista PA-C Unavailable [phone] Gina Bautista PA-C Unavailable [phone] Gina Bautista PA-C Unavailable [phone] Reason for Visit Reason Comments Cough x 3-4 days Derm Problem x 1 day Encounter Details Date Type Department Care Team Description 01/31/2015 Office Visit [facility] Gina Bautista litis and abscess of leg (Primary Dx); Clinic Jigna Vance PA-C Upper respiratory tract infection, unspe cified upper respiratory infection [address] [address] [address] [address] [place] [facility] [place] [id number] [phone] Social History Tobacco Use Types Packs/Day Years Used Date Never Smoker Smokeless Tobacco: Never Used Alcohol Use Standard Drinks/Week Comments Yes 0 (1 standard drink = 0.6 oz pure alcoho l) Sex Assigned at Date Recorded Not on file documented as of this encounter Last Filed Vital Signs Vital Sign Reading Time Taken Comments Blood Pressure 108/56 01/31/2015 3:14 PM TOLL LINE REPAIRER Pulse 82 01/31/2015 3:14 PM TOLL LINE REPAIRER Temperature 36.7 ??C (98.1 ??F) 01/31/2015 3:14 PM TOLL LINE REPAIRER Respiratory Rate 18 01/31/2015 3:14 PM TOLL LINE REPAIRER Oxygen Saturation 99% 01/31/2015 3:14 PM TOLL LINE REPAIRER Inhaled Oxygen Concentration - - Weight 82.4 kg (181 lb 9.6 oz) 01/31/2015 3:14 PM TOLL LINE REPAIRER Height 167.6 cm (5' 6) 01/31/2015 3:14 PM TOLL LINE REPAIRER Body Mass Index 29.31 01/31/2015 3:14 PM TOLL LINE REPAIRER documented in this encounter Progress Notes Gina [...] care. Gina Bautista PA-C [facility] [place] LINE REPAIRER documented in this encounter Nursing Notes Monica [...] phone number for results from this visit [phone] Marianne Tony CMA (AAMA) 01/31/2015 3:16 PM LINE REPAIRER documented in this encounter Plan of Treatment Upcoming Encounters Date Type Specialty Care Team Description 01/07/2022 Virtual Visit Endocrinology Natalya Jean MD [address] [place] [address] (Wo rk) documented as of this encounter Visit Diagnoses Diagnosis Cellulitis and abscess of leg - Primary Cellulitis and abscess of leg, except fo ot Upper respiratory tract infection, unspe cified upper respiratory infection documented in this encounter Additional Health Concerns Assessment Noted Time PHQ-9 Depression Total Score: 13 02/01/2015 7:29 AM CS T documented as of this encounter Care Teams Pricer Bagger Relationship Specialty Start Date End Date Gina Bautista PCP - General Physician Insurance Sales Agent 5 09/03/21 D[place]ES [id number] [place] [id number] Gina Bautista, PCP - Assigned PCP 01/12/15 05/11/18 PA-C [id number] [place] [address] Gina Bautista, Physician Insurance Sales Agent 01/31/15 PA-C [id number] [place] [address] Gina Bautista, Assigned PCP 01/12/15 PA-C [id number] [place] [address] documented as of this encounter
--- OUTSIDE RECORDS SUMMARY | 2021-12-10 12:51 | XMS_ITS | Encounter Summary ---
:1985 Author Organization [place] Address [address] [place] [address] Care Team Providers Name Role Phone Unavailable Primary Care Provider Unavailable Encounter Details Date Type Department Care Team Description 09/30/2005 [facility] [place] [address] (Wo rk) Social History Tobacco Use Types Packs/Day Years Used Date Never Assessed Sex Assigned at Date Recorded Not on file documented as of this encounter Plan of Treatment Upcoming Encounters Date Type Specialty Care Team Description 01/07/2022 Virtual Visit Endocrinology Natalya Jean MD [address] [place] [address] (Wo rk) documented as of this encounter Procedures Procedure Name Priority Date/Time Associated Diagnosis Comme [facility] X-RAY FOOT Routine 09/30/2005 10:59 AM Results [...]
--- OUTSIDE RECORDS SUMMARY | 2021-12-10 12:51 | XMS_ITS | Encounter Summary ---
:1985 Author Organization [facility] Address [address] [place] [address]. [place] [address] Care Team Providers Name Role Phone Gina Bautista PA-C Primary Care Provider [phone] Gina Bautista PA-C Unavailable [phone] Gina Bautista PA-C Unavailable [phone] Gina Bautista PA-C Unavailable [phone] Reason for Visit Reason Comments Urgent Care URI Colds x3-4- facial pain and pressure, sinus pressure, MAK, achy lymphnofe, L ear pain- unable to hear f rom L ear. Encounter Details Date Type Department Care Team Description 02/22/2017 Office Visit [facility] Johny Puga, Acute sinusitis with Urgent Care Ferny gage MD symptoms greater than [address] [address] [address] [address] Jason 10 days (Primary Dx) [place] [address] [phone] Social History Tobacco Use Types Packs/Day Years Used Date Never Smoker Smokeless Tobacco: Never Used Alcohol Use Standard Drinks/Week Comments Yes 0 (1 standard drink = 0.6 oz pure alcoho l) Sex Assigned at Date Recorded Not on file documented as of this encounter Last Filed Vital Signs Vital Sign Reading Time Taken Comments Blood Pressure 108/62 02/22/2017 11:59 AM LOTTERY OFFICE MANAGER Pulse 61 02/22/2017 11:59 AM LOTTERY OFFICE MANAGER Temperature 36.7 ??C (98.1 ??F) 02/22/2017 11:59 AM LOTTERY OFFICE MANAGER Respiratory Rate - - Oxygen Saturation 100% 02/22/2017 11:59 AM LOTTERY OFFICE MANAGER Inhaled Oxygen Concentration - - Weight [...] have suggested that the patient Push fluids. ERY OFFICE MANAGER documented in this encounter Nursing Notes [...] kg). Medication Reconciliation: complete [place] CMA (AAASNDRA) ERY OFFICE MANAGER documented in this encounter Plan of Treatment Upcoming Encounters Date Type Specialty Care Team Description 01/07/2022 Virtual Visit Endocrinology Natalya Jean MD [address] [place] [address] (Wo rk) documented as of this encounter Visit Diagnoses Diagnosis Acute sinusitis with symptoms greater th an 10 days - Primary Acute sinusitis, unspecified documented in this encounter Additional Health Concerns Assessment Noted Time PHQ-9 Depression Total Score: 9 02/19/2017 2:07 PM LOTTERY OFFICE MANAGER documented as of this encounter Care Teams Nutrition Professor Relationship Specialty Start Date End Date Gina Bautista, PCP - General Physician Psychotherapist Counselor 5 09/03/21 PA-C [id number] [address] [address] Gina Bautista, PCP - Assigned PCP 01/12/15 05/11/18 PA-C [id number] [place] [address] Gina Bautista, Physician Psychotherapist Counselor 01/31/15 PA-C 88173 [address] [address] Gina Bautista, Assigned PCP 01/12/15 PA-C 03924 [place] [address] documented as of this encounter
--- OUTSIDE RECORDS SUMMARY | 2021-12-10 12:51 | XMS_ITS | Encounter Summary ---
:1985 Author Organization [facility] Address [address] [place] [address]. 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 TSH WITH FREE T4 Routine 04/10/2017 2:35 PM Hypothyroidism due to Results for this REFLEX RETORT ENGINEER acquired atrophy of procedur e are in thyroid the results section. T4 FREE Routine 04/10/2017 2:35 PM Vitamin D deficiency R esults for this RETORT ENGINEER procedure are i n the results section. documented in this encounter Results T4 free (04/10/2017 2:35 PM RETORT ENGINEER) athologist Signature T4 Free 0.94 0.76 - 1.46 04/12/2017 [facility] ng/dL 1:41 PM [facility] Specimen Anatomical Collection Method Collection Time Receive d Time (Source) Location / / Volume Laterality 04/10/2017 2:35 PM 8 2:36 RETORT ENGINEER PM RETORT ENGINEER Gina Bautista PA-C LAB - BLOOD ORDERABLES Performing Organization Address City/[facility]/ZIP Code Phon e Number [facility] [address] [place] [address] (ABNORMAL) TSH with free T4 reflex FUTURE 2mo (04/10/2017 2:35 PM RETORT ENGINEER) athologist [facility] TSH 10.56 (H) 0.40 - 04/12/2017 [facility] 4.00 mU/L 1:28 PM [facility] Specimen Anatomical Collection Method Collection Time Receive d Time (Source) Location / / Volume Laterality Blood specimen 04/10/2017 2:35 PM 018 2:36 (specimen) RETORT ENGINEER PM RETORT ENGINEER Gina Bautista PA-C LAB - BLOOD ORDERABLES Performing Organization Address City/[facility]/ZIP Code Phon e Number [facility] [address] [place] [address] (ABNORMAL) Vitamin D Deficiency (04/10/2017 2:35 PM RETORT ENGINEER) athologist Signature Vitamin D 13 (L) 20 - 75 04/11/2017 [facility] Deficiency ug/L 11:46 AM RETORT ENGINEER [facility] Comment: Season, race, dietary intake, and treatm ent affect the concentration of 66-jynjxno-Vrydlxa D. 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 documented in this encounter Additional Health Concerns Assessment Noted Time PHQ-9 Depression Total Score: 9 02/19/2017 2:07 PM RETORT ENGINEER documented as of this encounter Care Teams Ip Paralegal Relationship Specialty Start Date End Date Gina Bautista, PCP - General Physician Lieutenant General 5 09/03/21 PA-C [address] [place] [address] Gina Bautista, PCP - Assigned PCP 01/12/15 05/11/18 PA-C [address] [place] [address] Gina Bautista, Physician Lieutenant General 01/31/15 PA-C 60695 [address] [address] Gina Bautista, Assigned PCP 01/12/15 PA-C 41839 [place] [address] documented as of this encounter
--- OUTSIDE RECORDS SUMMARY | 2021-12-10 12:51 | XMS_ITS | Encounter Summary ---
:1985 Author Organization [place] Address [address] [place] [address] Care Team Providers Name Role Phone Unavailable Primary Care Provider Unavailable Encounter Details Date Type Department Care Team Description 05/23/2005 Emergency room [facility] JED RAMIREZ [address] [place] [address] (Wo rk) Social History Tobacco Use Types Packs/Day Years Used Date Never Assessed Sex Assigned at Date Recorded Not on file documented as of this encounter Progress Notes Interface, Airborne Operations Manager - 05/24/2005 10:20 PM R&D LAB TECHNICIAN FINAL CHIEF COMPLAINT: Left lower quadrant pain. [...] home. Tylenol No. 3 for discomfort, Motrin [id number]. Follow up with primary care physician in 3-5 days, clear liquids x8 hours and advance diet as tolerated. Return to emergency department if symptoms get worse. Electronically signed on 05/24/2005 22:19 by GLORY KRAFT MD MT: [id number] Name: ACRLEY CHAN MRN: [id number] Account: [id number] : 1985 Visit Date: 05/23/2005 Document: [id number] cc: [facility] R&D LAB TECHNICIAN Interface, Airborne Operations Manager - 05/24/2005 3:26 PM R&D LAB TECHNICIAN PRELIMINARY CHIEF COMPLAINT: Left lower quadrant pain. [...] home. Tylenol No. 3 for discomfort, Motrin [id number]. Follow up with primary care physician in 3-5 days, clear liquids x8 hours and advance diet as tolerated. Return to emergency department if symptoms get worse. MD Khloe DUNAWAY: 05/23/2005 MT: [id number] Name: CARLEY CHAN Account: [id number] : 1985 Visit Date: 05/23/2005 Document: [id number] cc: [facility] R&D LAB TECHNICIAN documented in this encounter Plan of Treatment Upcoming Encounters Date Type Specialty Care Team Description 01/07/2022 Virtual Visit Endocrinology Natalya Jean MD [address] [place] [address] (Wo rk) documented as of this encounter Visit Diagnoses Not on filedocumented in this encounter
--- OUTSIDE RECORDS SUMMARY | 2021-12-10 12:51 | XMS_ITS | Encounter Summary ---
:1985 Author Organization [place] Address [address] [place] [address]. [place] [address] Care Team Providers Name Role Phone Gina Bautista PA-C Primary Care Provider [phone] Gina Bautista PA-C Unavailable [phone] Gina Bautista PA-C Unavailable [phone] Gina Bautista PA-C Unavailable [phone] Reason for Visit Reason Comments Medication Refill Encounter Details Date Type Department Care Team Description 03/22/2017 Refill [facility] Lyle Bautista Medication Refill Lucia Vance PA-C [address] [address] [address] [place] [phone] [place] [address] [phone] (Wo rk) Social History Tobacco Use Types Packs/Day Years Used Date Never Smoker Smokeless Tobacco: Never Used Alcohol Use Standard Drinks/Week Comments Yes 0 (1 standard drink = 0.6 oz pure alcoho l) Sex Assigned at Date Recorded Not on file documented as of this encounter Miscellaneous Notes Telephone Encounter - Violette Archer - 04/06/2017 3:23 PM CST Appointment scheduled PORTAL DEVELOPER Telephone Encounter - Panchito Gandhi - 04/03/2017 10:43 AM CST 2nd attempt, LM to call back. Needs non-fasting lab only apt. Panchito Gandhi CMA (AAOR) PORTAL DEVELOPER Telephone Encounter - Donya Damon - 03/26/2017 11:50 AM CST 1st attempt LVM to call back to make an appt PORTAL DEVELOPER Telephone Encounter - Yvette Negrete RN - 03/25/2017 12:18 PM WEB PORTAL DEVELOPER Medication is being filled for 1 time refill only due to: Patient needs labs recheck on Vitamin D level. Call to schedule lab only appointment, future order previously placed. Kim Negrete RN PORTAL DEVELOPER Telephone Encounter - Kaye Gr - 03/23/2017 9:36 AM CST vitamin D (ERGOCALCIFEROL) [address]694 UNIT capsule Last Written Prescription Date: 12/22/2016 Last Fill Quantity: 12, # refills: 0 Last Office Visit: 02/22/2017 Future Office visit: Next 5 appointments (look out 90 days) Apr 24, 2017 2:00 PM WEB PORTAL DEVELOPER Return Visit with Lisa Lopez LP [facility] ([facility]) [address] [facility] [address] May 08, 2017 2:00 PM WEB PORTAL DEVELOPER Return Visit with Lisa Lopez LP [facility] ([facility]) [address] [facility] [address] May 22, 2017 2:00 PM CDT Return Visit with Lisa Lopez LP [facility] ([facility]) [address] [facility] [address] Routing refill request to provider for review/approval because: Drug not on the FMG, UMP or Health refill protocol or controlled substance PORTAL DEVELOPER documented in this encounter Plan of Treatment Upcoming Encounters Date Type Specialty Care Team Description 01/07/2022 Virtual Visit Endocrinology Natalya Jean MD [address] [place] [address] (Wo rk) documented as of this encounter Visit Diagnoses Diagnosis Vitamin D deficiency Unspecified vitamin D deficiency documented in this encounter Additional Health Concerns Assessment Noted Time PHQ-9 Depression Total Score: 9 02/19/2017 2:07 PM WEB PORTAL DEVELOPER documented as of this encounter Care Teams Flying Ii Instructor Relationship Specialty Start Date End Date Gina Bautista, PCP - General Physician Tax Agent 5 09/03/21 PA-C [address] [place] [address] Gina Bautista, PCP - Assigned PCP 01/12/15 05/11/18 PA-C [address] [place] [address] Gina Bautista, Physician Tax Agent 01/31/15 PA-C [address] [place] [address] Gina Bautista, Assigned PCP 01/12/15 PA-C [address] [place] [address] documented as of this encounter
--- OUTSIDE RECORDS SUMMARY | 2021-12-10 12:51 | XMS_ITS | Encounter Summary ---
:1985 Author Organization [place] Address [address] [place] [address]. [place] [address] Care Team Providers Name Role Phone Unavailable Primary Care Provider Unavailable Encounter Details Date Type Department Care Team Description 05/23/2005 Historic Results INTERFACED REPORT Aleksandra Carrizales MD [address] [address] (Wo rk) Social History Tobacco Use Types Packs/Day Years Used Date Never Assessed Sex Assigned at Date Recorded Not on file documented as of this encounter Plan of Treatment Upcoming Encounters Date Type Specialty Care Team Description 01/07/2022 Virtual Visit Endocrinology Natalya Jean MD [address] [place], [place] [address] (Wo rk) documented as of this encounter Procedures Procedure Name Priority Date/Time Associated Comments Diagnosis WET PREPARATION STAT 05/23/2005 9:45 AM Result s for this ANALYSIS MGR procedure are i n the results section. NEISSERIA GONORRHOEAE STAT 05/23/2005 9:45 AM Results for this PCR ANALYSIS MGR procedure are i n the results section. CHLAMYDIA TRACHOMATIS STAT 05/23/2005 9:45 AM Results for this PCR ANALYSIS MGR procedure are i n the results section. HCG QUALITATIVE URINE STAT 05/23/2005 9:20 AM Results for this ANALYSIS MGR procedure are i n the results section. ROUTINE UA WITH STAT 05/23/2005 9:20 AM Result s for this MICROSCOPIC ANALYSIS MGR procedure are i n the results section. HEMOGRAM DIFFERENTIAL STAT 05/23/2005 7:35 AM Results for this AND PLATELET ANALYSIS MGR procedure are i n the results section. BASIC METABOLIC PANEL STAT 05/23/2005 7:35 AM Results for this ANALYSIS MGR procedure are i n the results section. documented in this encounter Results Chlamydia trachomatis PCR (05/23/2005 9:45 AM ANALYSIS MGR) Component Value Ref Test Analysis Performed At [facility] Range Method Time Signature Specimen Cervical MISYS Description Chlamydia Negative for C. MISYS Trachomatis PCR trachomatis rRNA by carbon dioxide operator mediated amplification. Comment: A negative result by carbon dioxide operator medi ated amplification does not preclude the presence of C. trachomatis infection be cause results are dependent on proper and adequate collection, absence of inh ibitors, and sufficient rRNA to be detected. Specimen Anatomical Collection Method Collection Time Receive d Time (Source) Location / / Volume Laterality 05/23/2005 9:45 AM 6 ANALYSIS MGR 10:02 AM ANALYSIS MGR [facility] - MICRO GENERAL ORDERABL ES Performing Organization Address [facility]/ZIP Code Phon e Number MISYS Neisseria gonorrhoeae PCR (05/23/2005 9:45 AM ANALYSIS MGR) [facility] Method Time Signature Specimen Cervical MISYS Descrip N Gonorrhea Negative for N. MISYS PCR gonorrhoeae rRNA by carbon dioxide operator mediated amplification. Comment: A negative result by carbon dioxide operator medi ated amplification does not preclude the presence of N. gonorrhoeae infection be cause results are dependent on proper and adequate collection, absence of inh ibitors, and sufficient rRNA to be detected. Specimen Anatomical Collection Method Collection Time Receive d Time (Source) Location / / Volume Laterality 05/23/2005 9:45 AM 6 ANALYSIS MGR 10:02 AM ANALYSIS MGR [facility] - MICRO GENERAL ORDERABL ES Performing Organization Address City/State/ZIP Code Phon e Number MISYS Wet prep (05/23/2005 9:45 AM ANALYSIS MGR) [facility] Method Time Signature Specimen Vagina MISYS Description Micro Report FINAL MISYS Status [id number] Wet Prep Few PMN'S MISYS seen Comment: No Trichomonas seen No yeast seen No clue cells seen Specimen Anatomical Collection Method Collection Time Receive d Time (Source) Location / / Volume Laterality 05/23/2005 9:45 AM 6 ANALYSIS MGR 10:02 AM ANALYSIS MGR [facility] - MICRO GENERAL ORDERABL ES Performing Organization Address City/State/ZIP Code Phon e Number MISYS (ABNORMAL) Routine UA with microscopic (05/23/2005 9:20 AM ANALYSIS MGR) [facility] gist Method Time Signature Source Midstream MISYS Urine Color Urine Yellow MISYS Appearance Urine Clear MISYS Glucose Urine Negative NEG mg/dL MISYS Bilirubin Urine Negative NEG MISYS Ketones Urine Negative NEG mg/dL MISYS Specific [place] 1.016 1.003 - MISYS Urine 1.035 Blood [...] Volume Laterality 05/23/2005 9:20 AM 6 7:48 ANALYSIS MGR AM ANALYSIS MGR [facility] - URINE ORDERABLES Performing Organization Address [facility] Phon e Number MISYS HCG qualitative urine (05/23/2005 9:20 AM ANALYSIS MGR) athologist Signature HCG Qual Urine Negative NEG MISYS Specimen Anatomical Collection Method Collection Time Receive d Time (Source) Location / / Volume Laterality 05/23/2005 9:20 AM 6 7:48 ANALYSIS MGR AM ANALYSIS MGR [facility] - URINE ORDERABLES Performing Organization Address [facility] Phon e Number MISYS (ABNORMAL) Hemogram differential and platelet (05/23/2005 7:35 AM ANALYSIS MGR) [facility] gist Method Time Signature MCV 84 [...] Volume Laterality 05/23/2005 7:35 AM 6 7:48 ANALYSIS MGR AM ANALYSIS MGR [facility] - BLOOD ORDERABLES Performing Organization Address City/State/ZIP Code Phon e Number MISYS Basic metabolic panel (05/23/2005 7:35 AM ANALYSIS MGR) P athologist Signature Sodium 141 133 - [...] Volume Laterality 05/23/2005 7:35 AM 6 7:48 ANALYSIS MGR AM ANALYSIS MGR [facility] - BLOOD ORDERABLES Performing Organization Address City/State/ZIP Code Phon e Number MISYS documented in this encounter Visit Diagnoses Not on filedocumented in this encounter
--- OUTSIDE RECORDS SUMMARY | 2021-12-10 12:51 | XMS_ITS | Encounter Summary ---
:1985 Author Organization [place] Address [address] [place] [address]. 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 Hypothyroidism due to acquired atrophy of thyroid T4 FREE Routine 04/26/2015 8:26 AM Encounter for Results for this PANELBOARD TANK PUMPER routine adult procedure are in physical exam with the resul ts abnormal findings section. LIPID REFLEX TO DIRECT Routine 04/26/2015 8:26 AM Encounter fo r Results for this LDL PANEL PANELBOARD TANK PUMPER routine adult procedure are in physical exam with the resul ts abnormal findings section. COMPREHENSIVE Routine 04/26/2015 8:26 AM Encounter for Results for this METABOLIC PANEL PANELBOARD TANK PUMPER routine adult procedure a re in physical exam with the resul ts abnormal finding s section. Overweight CBC WITH PLATELETS Routine 04/26/2015 8:26 AM Encounter for Re sults for this PANELBOARD TANK PUMPER routine adult procedure are in physical exam with the resul ts abnormal findings section. documented in this encounter Results T4 free (04/26/2015 8:26 AM PANELBOARD TANK PUMPER) athologist Signature T4 Free 0.98 0.76 - 1.46 [facility] ng/dL [facility] Specimen Anatomical Collection Method Collection Time Receive d Time (Source) Location / / Volume Laterality 04/26/2015 8:26 AM 6 8:27 PANELBOARD TANK PUMPER AM PANELBOARD TANK PUMPER Gina Bautista PA-C LAB - BLOOD ORDERABLES Performing Organization Address City/State/ZIP Code Phon e Number [facility] [address] [place] [address] (ABNORMAL) CBC with platelets (04/26/2015 8:26 AM PANELBOARD TANK PUMPER) athologist Signature WBC 4.7 4.0 - 11.0 [place] 10e9/L [facility] RBC Count 4.41 3.8 - 5.2 [place] 10e12/L [facility] Hemoglobin 8.4 (L) 11.7 - 15.7 [place] g/dL [facility] [place] Comment: Results confirmed by repeat mónica t Hematocrit 29.1 (L) 35.0 - 47.0 % [facility] S [place] MCV 66 (L) 78 - 100 fl [facility] [place] MCH 19.0 (L) 26.5 - 33.0 pg [facility] [place] MCHC 28.9 (L) 31.5 - 36.5 g/dL [facility] Comment: Results confirmed by repeat mónica t RDW 16.7 (H) 10.0 - 15.0 % [facility] Platelet Count 321 150 - 450 10e9/L [facility] Specimen Anatomical Collection Method Collection Time Receive d Time (Source) Location / / Volume Laterality Blood specimen 04/26/2015 8:26 AM 016 8:27 (specimen) PANELBOARD TANK PUMPER AM PANELBOARD TANK PUMPER Gina Bautista PA-C LAB - BLOOD ORDERABLES Performing Organization Address City/[facility]/ZIP Code Phon e Number [facility] [address] [place], [place] [address] LIPID REFLEX TO DIRECT LDL PANEL (04/26/2015 8:26 AM PANELBOARD TANK PUMPER) P athologist Signature Cholesterol 109 <200 mg/dL [facility] Triglycerides 70 <150 mg/dL [facility] S [facility] Comment: Fasting specimen HDL Cholesterol 54 >49 mg/dL [place] [facility] LDL Cholesterol Calculated 41 <100 mg/dL [facility] Comment: Desirable: <100 mg/dl Non HDL Cholesterol 55 <130 mg/dL [facility] Specimen Anatomical Collection Method Collection Time Receive d Time (Source) Location / / Volume Laterality Blood specimen 04/26/2015 8:26 AM 016 8:27 (specimen) PANELBOARD TANK PUMPER AM PANELBOARD TANK PUMPER Gina Bautista PA-C LAB - BLOOD ORDERABLES Performing Organization Address City/[facility]/ZIP Code Phon e Number [facility] [address] [place] [address] (ABNORMAL) TSH with free T4 reflex (04/26/2015 8:26 AM PANELBOARD TANK PUMPER) P athologist Signature TSH 7.92 (H) 0.40 - [facility] 4.00 mU/L [facility] Specimen Anatomical Collection Method Collection Time Receive d Time (Source) Location / / Volume Laterality Blood specimen 04/26/2015 8:26 AM 016 8:27 (specimen) PANELBOARD TANK PUMPER AM PANELBOARD TANK PUMPER Gina Bautista PA-C LAB - BLOOD ORDERABLES Performing Organization Address City/State/ZIP Code Phon e Number [facility] [address] [place] [address] (ABNORMAL) Comprehensive metabolic panel (04/26/2015 8:26 AM PANELBOARD TANK PUMPER) [facility] gist Method Time Signature Sodium 140 133 - 144 [place] mmol/L [facility] Potassium 4.1 3.4 - 5.3 [place] mmol/L [facility] Chloride 109 94 - 109 [place] mmol/L [facility] Carbon Dioxide 23 20 - 32 [place] mmol/L [facility] Anion Gap 8 3 - 14 [place] mmol/L [facility] Glucose 87 70 - 99 [place] mg/dL [facility] Urea Nitrogen 10 7 - 30 [place] mg/dL [facility] Creatinine 0.74 0.52 - [place] 1.04 CLINICS mg/dL [facility] GFR Estimate >90 >60 [place] Non GFR Calc mL/min/1. CLINICS 7m2 [facility] GFR Estimate If >90 >60 [place] Black GFR Calc mL/min/1. CLIN ICS 7m2 [facility] Calcium 8.3 (L) 8.5 - [facility] 10.1 CLINICS mg/dL [facility] Bilirubin Total 0.5 0.2 - 1.3 [place] mg/dL [facility] Albumin 3.8 3.4 - 5.0 [place] g/dL [facility] Protein Total 7.4 6.8 - 8.8 [place] g/dL [facility] Alkaline 71 40 - 150 [place] Phosphatase U/L [facility] ALT 19 0 - 50 [place] U/L [facility] AST 14 0 - 45 [facility] U/L [facility] Specimen Anatomical Collection Method Collection Time Receive d Time (Source) Location / / Volume Laterality Blood specimen 04/26/2015 8:26 AM 016 8:27 (specimen) PANELBOARD TANK PUMPER AM PANELBOARD TANK PUMPER Gina Bautista PA-C LAB - BLOOD ORDERABLES Performing Organization Address City/State/ZIP Code Phon e Number [facility] [address] [place] [address] documented in this encounter Visit Diagnoses Diagnosis Encounter for routine adult physical exa m with abnormal findings Overweight 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 documented in this encounter Additional Health Concerns Assessment Noted Time PHQ-9 Depression Total Score: 16 04/26/2015 8:54 AM CS T documented as of this encounter Care Teams Dairy Lab Technician Relationship Specialty Start Date End Date Gina Bautista, PCP - General Physician Milling General Superintendent 5 09/03/21 PA-C [address] [place] [address] Gina Bautista, PCP - Assigned PCP 01/12/15 05/11/18 PA-C [address] [place] [address] Gina Bautista, Physician Milling General Superintendent 01/31/15 PA-C [address] [place] [address] Gina Bautista, Assigned PCP 01/12/15 PA-C [address] [place] [address] documented as of this encounter
--- OUTSIDE RECORDS SUMMARY | 2021-12-10 12:51 | XMS_ITS | Encounter Summary ---
:1985 Author Organization [place] Address [address] [place] [address]. [place] [address] Care Team Providers Name Role Phone Gina Bautista PA-C Primary Care Provider [phone] Gina Bautista PA-C Unavailable [phone] Gina Bautista PA-C Unavailable [phone] Gina Bautista PA-C Unavailable [phone] Encounter Details Date Type Department Care Team Description 04/27/2015 Telephone [facility] Lyle Bautista [place] PA-C [address] [address] [place] [address] [place] [id number] (Wo rk) Social History Tobacco Use Types Packs/Day Years Used Date Never Smoker Smokeless Tobacco: Never Used Alcohol Use Standard Drinks/Week Comments Yes 0 (1 standard drink = 0.6 oz pure alcoho l) Sex Assigned at Date Recorded Not on file documented as of this encounter Miscellaneous Notes Telephone Encounter - Gina Bautista PA-C - 04/27/2015 8:25 AM UTILITY SALES AND SERVICE MANAGER Spoke with patient regarding labs. Will restart Synthroid 75mcg daily, recheck in 6-8 weeks Discussed low hemoglobin, will have her get labs today and then start iron replacement BID, recheck in 6-8 weeks as well. Discussed remained of labs. Gina Bautista PA-C ITY SALES AND SERVICE MANAGER Telephone Encounter - Monica Tony CMA - 04/27/2015 8:20 AM CST Per patient, placed letter at hotel front desk clerk for patient pick out hand Marianne Chavo CAMPOS (AATN) 04/27/2015 8:21 AM ITY SALES AND SERVICE MANAGER Telephone Encounter - Gina Bautista PA-C - 04/27/2015 8:13 AM UTILITY SALES AND SERVICE MANAGER Left Vm for patient, would like to discuss labs results. Gina Bautista PA-C ITY SALES AND SERVICE MANAGER documented in this encounter Plan of Treatment Upcoming Encounters Date Type Specialty Care Team Description 01/07/2022 Virtual Visit Endocrinology Natalya Jean MD [address] [place] [address] (Wo rk) documented as of this encounter Visit Diagnoses Not on filedocumented in this encounter Additional Health Concerns Assessment Noted Time PHQ-9 Depression Total Score: 16 04/26/2015 8:54 AM CS T documented as of this encounter Care Teams Oil Spot Washer Relationship Specialty Start Date End Date Gina Bautista, PCP - General Physician Manager Field Sales 5 09/03/21 [place] [address] [place] [address] Gina Bautista PCP - Assigned PCP 01/12/15 05/11/18 [place] [address] [place] [address] Gina Bautista, Physician Manager Field Sales 01/31/15 [place] [address] [place] [address] Gina Bautista, Assigned PCP 01/12/15 [place] [address] [place] [address] documented as of this encounter
--- OUTSIDE RECORDS SUMMARY | 2021-12-10 12:51 | XMS_ITS | Encounter Summary ---
:1985 Author Organization [place] Address [address] [place] [address]. [place] [address] Care Team Providers Name Role Phone Gina Bautista PA-C Primary Care Provider [phone] Gina Bautista PA-C Unavailable [phone] Gina Bautista PA-C Unavailable [phone] Gina Bautista PA-C Unavailable [phone] Reason for Visit Mental Health Outpatient (Routine) - Closed Specialty Diagnoses / Procedures Referred By Contact Refer red To Contact Gina Bautista [facility] JANETTE BERNAL [facility] [id number] [place] [id number] [place] [address] [place] [address] Phone: Fax: Referral ID Status Reason Start Date Expiration Date Visits Requ ested Visits Authorized [facility] Closed 01/14/2017 01/14/2018 1 52 Encounter Details Date Type Department Care Team Description 02/19/2017 Office Visit [facility] Lisa Lopez LP Anxiety (Primary Dx) Services [place] [id number] [facility] [address] [place] [phone] Social History Tobacco Use [...] decree) Talks to relatives ( who are deposit clerk) to get concrete info. Explored TIP skills. [...] plan. Lisa Lopez LP February 19, 2017 GLASS BLOWER documented in this encounter Plan of Treatment Upcoming Encounters Date Type Specialty Care Team Description 01/07/2022 Virtual Visit Endocrinology Natalya Jean MD [address] [place] [address] (Wo rk) documented as of this encounter Visit Diagnoses Diagnosis Anxiety - Primary Anxiety state, unspecified documented in this encounter Additional Health Concerns Assessment Noted Time PHQ-9 Depression Total Score: 9 02/19/2017 2:07 PM NEON GLASS BLOWER documented as of this encounter Care Teams Broadcast Operations Manager Relationship Specialty Start Date End Date Gina Bautista, PCP - General Physician Logistics Analyst 5 09/03/21 PA-C 57886 [place] [address] Gina Bautista, PCP - Assigned PCP 01/12/15 05/11/18 PA-C [address]29[address] [place] [address] Gina Bautista, Physician Logistics Analyst 01/31/15 PA-C 45498 [place] [address] Gina Bautista, Assigned PCP 01/12/15 PA-C [address]22 [place] [address] documented as of this encounter
--- OUTSIDE RECORDS SUMMARY | 2021-12-10 12:51 | XMS_ITS | Encounter Summary ---
:1985 Author Organization [place] Address [address] [place] [address]. [place] [address] Care Team Providers Name Role Phone Gina Bautista PA-C Primary Care Provider [phone] Gina Bautista PA-C Unavailable [phone] Gina Bautista PA-C Unavailable [phone] Gina Bautista PA-C Unavailable [phone] Reason for Visit Reason Comments Sinus Problem Encounter Details Date Type Department Care Team Description 07/27/2015 Office Visit [facility] Gina Bautista Acute recurrent Clinic Lucia Vance PA-C maxillary sinusitis [address] (Primary Dx) [place], [place] [address] [phone] Social History Tobacco Use Types Packs/Day Years [...] She has been treated twice by in [place] with Amoxicillin without relief No fever, very [...] the plan of care. Gina Bautista PA-C [facility] documented in this encounter Nursing Notes [...] phone number for results from this visit [phone] OK to leave message Marianne Tony CMA (AAMA) 07/27/2015 8:58 AM documented in this encounter Plan of Treatment Upcoming Encounters Date Type Specialty Care Team Description 01/07/2022 Virtual Visit Endocrinology Natalya Jean MD [address] [place] [address] (Wo rk) documented as of this encounter Visit Diagnoses Diagnosis Acute recurrent maxillary sinusitis - Pr imary Acute maxillary sinusitis documented in this encounter Additional Health Concerns Assessment Noted Time PHQ-9 Depression Total Score: 16 04/26/2015 8:54 AM CS T documented as of this encounter Care Teams Refuse And Recycling Worker Relationship Specialty Start Date End Date Gina Bautista, PCP - General Physician Tobacco Packer 5 09/03/21 PA-C [address] [place] [address] Gina Bautista, PCP - Assigned PCP 01/12/15 05/11/18 PA-C [address] [place] [address] Gina Bautista, Physician Tobacco Packer 01/31/15 PA-C [address] [place] [address] Gina Bautista, Assigned PCP 01/12/15 PA-C [address]1957 [place] [address] documented as of this encounter
--- OUTSIDE RECORDS SUMMARY | 2021-12-10 12:51 | XMS_ITS | Encounter Summary ---
:1985 Author Organization [place] Address [address] [place] [address]. [place] [address] Care Team Providers Name Role Phone Gina Bautista PA-C Primary Care Provider [phone] Gina Bautista PA-C Unavailable [phone] Gina Bautista PA-C Unavailable [phone] Gina Bautista PA-C Unavailable [phone] Reason for Referral - Closed Specialty Diagnoses / Procedures Referred By Contact Refer red To Contact Diagnoses S/P gastric bypass Gina Bautista, Procedures VITAMIN B12 INJ /1000MCG [place]ES [address] [place] [address] Referral ID Status Reason Start Date Expiration Date Visits Requ ested Visits Authorized [id number] Closed 12/29/2016 12/29/2017 1 1 Reason for Visit Reason Comments Imm/Inj starting B 12 injections Encounter Details Date Type Department Care Team Description 12/29/2016 Allied Health/Nurse [facility] Imm /Inj (starting B 12 Visit Clinic [place] injections ) [address] [id number] Social History Tobacco Use Types Packs/Day Years [...] [address] [place], [place] [address] (Wo rk) documented as of this encounter Visit Diagnoses Diagnosis S/P gastric bypass - Primary Bariatric surgery status documented in this encounter Additional Health Concerns Assessment Noted Time PHQ-9 Depression Total Score: 7 12/19/2016 3:37 PM CDT documented as of this encounter Care Teams Mobility Developer Relationship Specialty Start Date End Date Gina Bautista, PCP - General Physician Pipeline Integrity Engineer 5 09/03/21 PA-C [address] [place] [address] Gina Bautista, PCP - Assigned PCP 01/12/15 05/11/18 PA-C [address] [place] [address] Gina Bautista, Physician Pipeline Integrity Engineer 01/31/15 PA-C [address] [place] [address] Gina Bautista, Assigned PCP 01/12/15 PA-C 79[address] [place] [address] documented as of this encounter
--- OUTSIDE RECORDS SUMMARY | 2021-12-10 12:51 | XMS_ITS | Encounter Summary ---
:1985 Author Organization [place] Address [address] [place] [address]. [place] [address] Care Team Providers Name Role Phone Paul Palumbo PA-C Primary Care Provider [phone] Paul Palumbo PA-C Unavailable [phone] Paul Palumbo PA-C Unavailable [phone] Paul Palumbo PA-C Unavailable [phone] Reason for Referral Consultation - Closed Specialty Diagnoses / Procedures Referred By Contact Refer red To Contact Diagnoses Low hemoglobin S/P gastric bypass Vitamin B 12 deficiency Paul Palumbo [facility] DOLORES Vance HEMATOLOGY [address] [place] [address] [address] [place] [address] Phone: [phone] Fax: Referral ID Status Reason Start Date Expiration Date Visits Requ ested Visits Authorized [id number] Closed 12/24/2016 12/24/2017 1 1 OILING MACHINE OPERATOR - Closed Specialty Diagnoses / Procedures Referred By Contact Refer red To Contact Diagnoses Family planning counseling IUD check up Paul Palumbo [facility] DOLORES Vance [place] [address] [place] [address] [address] [place] [address] Phone: Fax: Referral ID Status Reason Start Date Expiration Date Visits Requ ested Visits Authorized [id number] Closed 12/19/2016 12/19/2017 1 1 Reason for Visit Reason Comments Physical Flu Shot Encounter Details Date Type Department Care Team Description 12/19/[address] 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 - OILING MACHINE OPERATOR REFERRAL 9. Family planning counseling Patient interested in future , was high risk in past, had 4 miscarriages. Will refer to OILING MACHINE OPERATOR to discuss future conception. - OILING MACHINE OPERATOR REFERRAL 10. Need for prophylactic vaccination and inoculation against influenza - FLU VAC, SPLIT VIRUS IM > 3 YO (QUADRIVALENT) [42466] - Vaccine Administration, Initial [85516] COUNSELING: Reviewed preventive health counseling, as reflected [...] hemoglobin and mood issues. Paul Palumbo PA-C [facility] [place] Answers for HPI/ROS submitted by the [...] [address] [place] [address] (Wo rk) Scheduled Referrals Name Type Priority Associated Diagnoses Order S chedule OILING MACHINE OPERATOR REFERRAL Referral Routine Family planning Ordered: 12/19/2016 [...] or this PM CDT medical examination at [facility] are in a health care facility the [...] T4 reflex FUTURE 2mo (04/10/2017 2:35 PM RECYCLING TECH) athologist Signature TSH 10.56 (H) 0.40 - 04/12/2017 [facility] 4.00 mU/L 1:[address] [facility] Specimen Anatomical Collection Method Collection Time Receive d Time (Source) Location / / Volume Laterality Blood specimen 04/10/2017 2:35 PM 018 2:36 (specimen) RECYCLING TECH PM RECYCLING TECH Paul Palumbo PA-C LAB - BLOOD ORDERABLES Performing Organization Address City/State/ZIP Code Phon e Number [facility] [address] [place] [address] (ABNORMAL) Vitamin D Deficiency (04/10/2017 2:35 PM RECYCLING TECH) athologist Signature Vitamin D 13 (L) 20 - 75 04/11/2017 [facility] ug/L 11:46 AM RECYCLING TECH [facility] Comment: Season, race, dietary intake, and treatm ent affect the concentration of 24-rysxtkt-Egqrvqw D. Values may decreas e during winter [...] specimen 04/10/2017 2:35 PM 018 2:36 (specimen) RECYCLING TECH PM RECYCLING TECH Paul Palumbo PA-C LAB - BLOOD ORDERABLES Performing Organization Address City/State/ZIP Code Phon e Number [facility] [address] [place] [address] [facility] T4 free (12/19/2016 3:33 PM CDT) athologist Signature T4 Free 1.00 0.76 - 1.46 12/20/2016 [facility] ng/dL 1:[address] [facility] Specimen Anatomical Collection Method Collection Time Receive d Time (Source) Location / / Volume Laterality 12/19/2016 3:33 PM 7 3:34 CDT PM CDT Paul Palumbo PA-C LAB - BLOOD ORDERABLES Performing Organization Address City/State/ZIP Code Phon e Number [facility] [address] [place] [address] WBC Differential (12/19/2016 3:33 PM CDT) [facility] gist Method Time Signature Diff Method Automated 12/19/2016 [facility] Method 9:06 PM [facility] % Neutrophils 64.0 % 12/19/2016 [place] 9:06 PM [facility] % Lymphocytes 25.2 % 12/19/2016 [place] 9:06 PM [facility] % Monocytes 7.7 % 12/19/2016 [place] 9:06 PM [facility] % Eosinophils 2.3 % 12/19/2016 [place] 9:06 PM [facility] % Basophils 0.5 % 12/19/2016 [place] 9:06 PM [facility] % Immature 0.3 % 12/19/2016 [place] Granulocytes 9:06 PM [facility] Nucleated RBCs 0 0 /100 12/19/2016 [facility] 9:06 PM [facility] Absolute 4.2 1.6 - 8.3 12/19/2016 [facility] Neutrophil 10e9/L 9:06 PM [facility] Absolute 1.7 0.8 - 5.3 12/19/2016 [facility] Lymphocytes 10e9/L 9:06 PM [facility] Absolute 0.5 0.0 - 1.3 12/19/2016 [facility] Monocytes 10e9/L 9:06 PM [facility] Absolute 0.2 0.0 - 0.7 12/19/2016 [facility] Eosinophils 10e9/L 9:06 PM [facility] Absolute 0.0 0.0 - 0.2 12/19/2016 [facility] Basophils 10e9/L 9:06 PM [facility] Abs Immature 0.0 0 - 0.4 12/19/2016 [facility] Granulocytes 10e9/L 9:06 PM [facility] Absolute 0.0 12/19/2016 [facility] Nucleated RBC 9:06 PM [facility] Anisocytosis Slight 12/19/2016 [facility] 9:06 PM [facility] Ovalocytes Slight 12/19/2016 [facility] 9:06 PM [facility] Microcytes Present 12/19/2016 [facility] 9:06 PM [facility] Platelet Normal 12/19/2016 [facility] Estimate 9:06 PM [facility] Specimen Anatomical Collection Method Collection Time Receive d Time (Source) Location / / Volume Laterality 12/19/2016 3:33 PM 7 4:07 CDT PM CDT Paul Palumbo PA-C LAB - BLOOD ORDERABLES Performing Organization Address City/State/ZIP Code Phon e Number [facility] [address] [address] [facility] [address] [phone] Reticulocyte Count (12/19/2016 3:33 PM CDT) athologist Signature % Retic 1.1 0.5 - 2.0 12/19/2016 [place] % 7:25 PM CDT [facility] Absolute Retic 43.0 25 - 95 12/19/2016 [place] 10e9/L 7:25 PM CDT [facility] Specimen Anatomical Collection Method Collection Time Receive d Time (Source) Location / / Volume Laterality Blood specimen 12/19/2016 3:33 PM 017 4:07 (specimen) CDT PM CDT Paul Palumbo PA-C LAB - BLOOD ORDERABLES Performing Organization Address City/State/ZIP Code Phon e Number [facility] [address] [address] [facility] [address] [phone] Blood Morphology Pathologist Review (12/19/2016 3:33 PM CDT) Component Value Ref Test Analysis Performed Pathologis t Range Method Time At Signature Copath Patient Name: TASHA PHELAN Report MR#: [id number] Specimen #: [id number] Collected: 12/19/2016 Received: 12/22/2016 Reported: 12/22/2016 10:01 [...] 12-22-2016 @ 10:01 AM). CPT Codes: A: 13880-YUEW TESTING LAB LOCATION: [facility] [address] [place], [place] ??[address] COLLECTION SITE: Client: ??[facility] Location: ??[facility] (R) Specimen Anatomical Collection Method [...] 12/19/2016 [facility] pg/mL 10:23 PM CDT [facility] Specimen Anatomical Collection Method Collection Time Receive d Time (Source) Location / / Volume Laterality Blood specimen 12/19/2016 3:33 PM 017 3:34 (specimen) CDT PM CDT Paul Palumbo PA-C LAB - BLOOD ORDERABLES Performing Organization Address City/State/ZIP Code Phon e Number [phone] [place] [address] (ABNORMAL) Vitamin D Deficiency (12/19/2016 3:33 PM CDT) athologist Signature Vitamin D 17 (L) 20 - 75 12/21/2016 [facility] Deficiency ug/L 3:23 PM CDT [facility] Comment: Season, race, dietary intake, and treatm ent affect the concentration of 53-wrjejbg-Dnwltge D. Values may decreas e during winter [...] Organization Address City/State/ZIP Code Phon e Number [facility] [address] [place], [place] [phone] [place] [address] (ABNORMAL) Comprehensive metabolic panel (12/19/2016 3:33 PM CDT) [facility] Method Time Signature Sodium 140 133 - 144 12/20/2016 [facility] mmol/L 12:[address] [facility] Potassium 4.2 3.4 - 5.3 12/20/2016 [facility] mmol/L 12:[address] [facility] Chloride 110 (H) 94 - 109 12/20/2016 [facility] mmol/L 12:[address] [facility] Carbon Dioxide 21 20 - 32 12/20/2016 [facility] mmol/L 12:[address] [facility] Anion Gap 9 3 - 14 12/20/2016 [place] mmol/L 12:[address] [facility] Glucose 85 70 - 99 12/20/2016 [facility] mg/dL 12:[address] [facility] Urea Nitrogen 9 7 - 30 12/20/2016 [facility] mg/dL 12:54 PM CDT [facility] Creatinine 0.75 0.52 - 12/20/2016 [facility] 1.04 mg/dL 12:[address] [facility] GFR Estimate >90 >60 12/20/2016 [place] mL/min/1.7 12:54 PM CDT [facility]INICS m2 [facility] Comment: Non GFR Calc GFR Estimate If >90 >60 mL/min/1.7m2 12/20/2016 12:54 PM [facility] Black T [facility] Comment: GFR Calc Calcium 8.7 8.5 - 10.1 12/20/2016 12:54 PM [facility] mg/dL T [facility] Bilirubin Total 0.4 0.2 - 1.3 mg/dL 12/20/2016 12:54 P [facility] Albumin 3.9 3.4 - 5.0 g/dL 12/20/2016 12:54 [facility] Protein Total 7.6 6.8 - 8.8 g/dL 12/20/2016 12:54 PM [facility] Alkaline Phosphatase 61 40 - 150 U/L 12/20/2016 1:02 PM [facility] ALT 20 0 - 50 U/L 12/20/2016 12:54 PM [facility] AST 15 0 - 45 U/L 12/20/2016 12:54 PM [facility] Specimen Anatomical Collection Method Collection Time Receive d Time (Source) Location / / Volume Laterality Blood specimen 12/19/2016 3:33 PM 017 3:34 (specimen) CDT PM CDT Paul Palumbo PA-C LAB - BLOOD ORDERABLES Performing Organization Address City/[facility]/ZIP Code Phon e Number [facility] [address] [place] [address] (ABNORMAL) TSH with free T4 reflex (12/19/2016 3:33 PM CDT) athologist Signature TSH 8.78 (H) 0.40 - 12/20/2016 [facility] 4.00 mU/L 1:[address] [facility] Specimen Anatomical Collection Method Collection Time Receive d Time (Source) Location / / Volume Laterality Blood specimen 12/19/2016 3:33 PM 017 3:34 (specimen) CDT PM CDT Paul Palumbo PA-C LAB - BLOOD ORDERABLES Performing Organization Address City/[facility]/ZIP Code Phon e Number [facility] [address] [address] (ABNORMAL) Iron and iron binding capacity (12/19/2016 3:33 PM CDT) Patholo gist Method Time Signature Iron 10 (L) 35 - 180 12/20/2016 [facility] ug/dL 12:54 PM CDT [facility] Iron Binding 528 (H) 240 - 430 12/20/2016 [facility] Cap ug/dL 12:54 PM CDT [facility] Iron Saturation 2 (L) 15 - 46 % 12/20/2016 [facility] Index 12:[address] [facility] Specimen Anatomical Collection Method Collection Time Receive d Time (Source) Location / / Volume Laterality Blood specimen 12/19/2016 3:33 PM 017 3:34 (specimen) CDT PM CDT Paul Palumbo PA-C LAB - BLOOD ORDERABLES Performing Organization Address City/[facility]/ZIP Code Phon e Number [facility] [address] [place], [place] [address] (ABNORMAL) Ferritin (12/19/2016 3:33 PM CDT) athologist Signature Ferritin 2 (L) 12 - 150 12/20/2016 [facility] ng/mL 12:[address] [facility] Specimen Anatomical Collection Method Collection Time Receive d Time (Source) Location / / Volume Laterality Blood specimen 12/19/2016 3:33 PM 017 3:34 (specimen) CDT PM CDT Paul Palumbo PA-C LAB - BLOOD ORDERABLES Performing Organization Address City/[facility] Code Phon e Number [facility] [address] [address] (ABNORMAL) CBC with platelets (12/19/2016 3:33 PM CDT) P athologist Signature WBC 6.4 4.0 - 11.0 12/19/2016 [facility] 10e9/L 3:43 PM CDT [facility] [place] RBC Count 3.97 3.8 - 5.2 12/19/2016 [facility] 10e12/L 3:43 PM CDT [facility] Hemoglobin 7.2 (L) 11.7 - 15.7 12/19/2016 [facility] g/dL 3:43 PM CDT [facility] Comment: Critical Value called to and read back b y TO PAUL PALUMBO PAC ON12/19/16 1540 DA Hematocrit 25.5 (L) 35.0 - 47.0 % 12/19/2016 3:43 PM CDT [facility] MCV 64 (L) 78 - 100 fl 12/19/2016 3:43 PM CDT [facility] MCH 18.1 (L) 26.5 - 33.0 pg 12/19/2016 3:43 PM CDT [facility] MCHC 28.2 (L) 31.5 - 36.5 g/dL 12/19/2016 3:43 PM CDT [facility] Comment: Results confirmed by repeat mónica t RDW 17.4 (H) 10.0 - 15.0 % 12/19/2016 3:43 PM [facility] CDT [place] Platelet Count 375 150 - 450 10e9/L 12/19/2016 3:43 PM [facility] CDT [place] Specimen Anatomical Collection Method Collection Time Receive d Time (Source) Location / / Volume Laterality Blood specimen 12/19/2016 3:33 PM 017 3:34 (specimen) CDT PM CDT Paul Palumbo PA-C LAB - BLOOD ORDERABLES Performing Organization Address City/State/ZIP Code Phon e Number [facility] [address] [address] Pap imaged thin layer screen reflex to HPV if ASCUS - recommend age 25 - 29 (12/19/2016 3:05 PM CDT) Component Value Ref Test Analysis Performed At [facility] Range Method Time Signature PAP NIL COPATH Copath Report COPATH Patient Name: TASHA PHELAN MR#: [id number] Specimen #: [id number] Collected: 12/19/2016 Received: 12/22/2016 Reported: 12/23/2016 13:10 [...] MATEUSZ Rodrigez (ASCP) Processed and screened at [facility] CLINICAL HISTORY: Currently not having periods, Intra-Uterine Device, Papanicolaou Test Limitations: ??Cervical cytology is a scre ening test with limited sensitivity; regular screening is critical for cancer prevention; Pap tests are primarily effective for the diagnosis/prevention of squamous cell carcinoma, not adenoca rcinomas or other cancers. TESTING LAB LOCATION: [address] ??[address] COLLECTION SITE: Client: ??[facility] Location: [facility] (R) Specimen (Source) [...] documented as of this encounter Care Teams Handle Turner Relationship Specialty Start Date End Date Paul Palumbo PCP - General Physician Assembler Piano 5 09/03/21 PALiuC [address] [place], [place] [address] Paul Palumbo, PCP - Assigned PCP 01/12/15 05/11/18 PA-C [address] [place] [address] Paul Palumbo, Physician Assembler Piano 01/31/15 [place] [address] [address] [place], [place] [address] Paul Palumbo, Assigned PCP 01/12/15 PA-C [address] [place] [address] documented as of this encounter
--- OUTSIDE RECORDS SUMMARY | 2021-12-10 12:51 | XMS_ITS | Encounter Summary ---
:1985 Author Organization [place] Address [address] [place] [address] Care Team Providers Name Role Phone Unavailable Primary Care Provider Unavailable Encounter Details Date Type Department Care Team Description 05/23/2005 Results [facility] Results EMERGENCY PHYSI [facility] [address] [place], [place] [phone] (Wo rk) Social History Tobacco Use Types Packs/Day Years Used Date Never Assessed Sex Assigned at Date Recorded Not on file documented as of this encounter Plan of Treatment Upcoming Encounters Date Type Specialty Care Team Description 01/07/2022 Virtual Visit Endocrinology Natalya Jean MD [address] [place] [address] (Wo rk) documented as of this encounter Procedures Procedure Name Priority Date/Time Associated Diagnosis Comme [facility] US PELVIC Routine 05/23/2005 10:02 AM Results for this NON-OB, COMPLETE RESIDENTIAL GLAZIER procedure a re in the results section. documented in this encounter Results SONO PELVIS COMPLETE (05/23/2005 10:02 AM RESIDENTIAL GLAZIER) Specimen (Source) Anatomical Collection Method Collection Time Re ceived Time Location / / Volume Laterality 05/23/2005 10:02 AM RESIDENTIAL GLAZIER Impressions RADIOLOGY RESULTS - 05/26/2005 10:39 AM RESIDENTIAL GLAZIER PELVIC ULTRASOUND WITH TRANSVAGINAL - ?? TECHNIQUE: [...]
--- OUTSIDE RECORDS SUMMARY | 2021-12-10 12:51 | XMS_ITS | Encounter Summary ---
:1985 Author Organization [place] Address [address] [place] [address]. [place] [address] Care Team Providers Name Role Phone Gina Bautista PA-C Primary Care Provider [phone] Gina Bautista PA-C Unavailable [phone] Gina Bautista PA-C Unavailable [phone] Gina Bautista PA-C Unavailable [phone] Reason for Visit Mental Health Outpatient (Routine) - Closed Specialty Diagnoses / Procedures Referred By Contact Refer red To Contact Gina Bautista FAIRVI [facility] JANETTE BERNAL [facility] [id number] [place] [id number] [place] [address] [place] [address] Phone: Fax: Referral ID Status Reason Start Date Expiration Date Visits Requ ested Visits Authorized [facility] Closed 01/14/2017 01/14/2018 1 52 Encounter Details Date Type Department Care Team Description 02/06/2017 Office Visit [facility] Lisa Lopez LP Anxiety (Primary Dx) Services [place] [id number] [facility] [address] [place] [phone] Social History Tobacco Use Types Packs/Day Years Used Date Never Smoker Smokeless Tobacco: Never Used Alcohol Use Standard Drinks/Week Comments Yes 0 (1 standard drink = 0.6 oz pure alcoho l) Sex Assigned at Date Recorded Not on file documented as of this encounter Progress Notes MichealbaltazarLisaTEODORA - 02/06/2017 2:23 PM CST Images from the original note were not included. Adult Intake Structured Interview Standard Diagnostic Assessment CLIENT'S NAME: Carley Hernandez : 1985 ACCT. NUMBER: [id number] DATE OF SERVICE: 02/06/17 Identifying Information: Client [...] History: Client reported she grew up in [place], [place]. They were the second born of [...] concentration. There are no ethnic, cultural or oriental orthodox factors that may be relevant for therapy. Client identified her preferred language to be Maltese. Client reported she does not need the assistance of an weigher and grader or other support involved in therapy. Modifications [...] an exam with PCP. The clienthas a [place] Primary Care Provider, who is named Gina [...] muscle every30 days ??? vitamin D (ERGOCALCIFEROL) 09122 UNIT capsule Take 1 capsule (50,000 Units) [...] the following activities. For each question, please [place] only one response. S1 Standing for long [...] Plan: The client reports no currently identified oriental orthodox, ethnic or cultural issues relevant to therapy. Care Professional services are not indicated. Modifications [...] NA. Client will have access to their [facility] medical record. Lisa Lopez LP February 06, 2017 IER DELIVERY DRIVER documented in this encounter Plan of Treatment Upcoming Encounters Date Type Specialty Care Team Description 01/07/2022 Virtual Visit Endocrinology Natalya Jean MD [address] [place] [address] (Wo rk) documented as of this encounter Visit Diagnoses Diagnosis Anxiety - Primary Anxiety state, unspecified documented in this encounter Additional Health Concerns Assessment Noted Time PHQ-9 Depression Total Score: 7 12/19/2016 3:37 PM CDT documented as of this encounter Care Teams Strike Out Machine Operator Relationship Specialty Start Date End Date Gina Bautista, PCP - General Physician Aircraft Instrument Repairer 5 09/03/21 [place] [address] [place] [address] Gina Bautista, PCP - Assigned PCP 01/12/15 05/11/18 PA-C [address] [place] [address] Gina Bautista, Physician Aircraft Instrument Repairer 01/31/15 PA-C [address] [place] [address] Gina Bautista, Assigned PCP 01/12/15 PA-C 19353 [place] [address] documented as of this encounter
--- OUTSIDE RECORDS SUMMARY | 2021-12-10 12:51 | XMS_ITS | Encounter Summary ---
:1985 Author Organization [place] Address [address] [place] [address]. [place] [address] Care Team Providers Name Role Phone Gina Bautista PA-C Primary Care Provider [phone] Gina Bautista PA-C Unavailable [phone] Gina Bautista PA-C Unavailable [phone] Gina Bautista PA-C Unavailable [phone] Encounter Details Date Type Department Care Team Description 04/27/2015 Orders Only [facility] Iro n deficiency anemia, [place] [facility] unspecified iron [address] [place] [address] Social History Tobacco Use Types Packs/Day [...] [address] [place], [place] [address] (Wo rk) documented as of this encounter Procedures Procedure Name Priority Date/Time Associated Diagnosis Comme nts IRON AND IRON Routine 04/27/2015 11:50 AM Iron deficiency Resu lts for this BINDING CAPACITY ADULT BASIC EDUCATION MANAGER anemia, unspecified proc edure are in iron deficiency the results section. FERRITIN Routine 04/27/2015 11:50 AM Iron deficiency Resul ts for this ADULT BASIC EDUCATION MANAGER anemia, unspecified procedur e are in iron deficiency the results section. documented in this encounter Results (ABNORMAL) Iron and iron binding capacity (04/27/2015 11:50 AM ADULT BASIC EDUCATION MANAGER) Patholo gist Method Time Signature Iron 13 (L) 35 - 180 [facility] Iron Binding 619 (H) 240 - 430 [place] Cap ug/dL [facility] Iron Saturation 2 (L) 15 - 46 % [place] Index CLINICS [facility] Specimen Anatomical Collection Method Collection Time Receive d Time (Source) Location / / Volume Laterality Blood specimen 04/27/2015 11:50 6 (specimen) AM ADULT BASIC EDUCATION MANAGER 11:51 AM ADULT BASIC EDUCATION MANAGER Gina Bautista PA-C LAB - BLOOD ORDERABLES Performing Organization Address City/[facility] Phon e Number [facility] [address] [place] [address] (ABNORMAL) Ferritin (04/27/2015 11:50 AM ADULT BASIC EDUCATION MANAGER) P athologist Signature Ferritin 2 (L) 12 - 150 [facility] ng/mL [facility] Specimen Anatomical Collection Method Collection Time Receive d Time (Source) Location / / Volume Laterality Blood specimen 04/27/2015 11:50 6 (specimen) AM ADULT BASIC EDUCATION MANAGER 11:51 AM ADULT BASIC EDUCATION MANAGER Gina Bautista PA-C LAB - BLOOD ORDERABLES Performing Organization Address City/[facility] Phon e Number [facility] [address] [place] [address] documented in this encounter Visit Diagnoses Diagnosis Iron deficiency anemia, unspecified iron deficiency documented in this encounter Additional Health Concerns Assessment Noted Time PHQ-9 Depression Total Score: 16 04/26/2015 8:54 AM CS T documented as of this encounter Care Teams Angle Bender Relationship Specialty Start Date End Date Gina Bautista PCP - General Physician Buildings And Grounds Supervisor 5 09/03/21 [place] [address] [place] [id number] Gina Bautista, PCP - Assigned PCP 01/12/15 05/11/18 PA-C 21269 [place] [address] Gina Bautista, Physician Buildings And Grounds Supervisor 01/31/15 PA-C 13214 [place], [place] [address] Gina Bautista, Assigned PCP 01/12/15 PA-C 98990 [place], [place] [address] documented as of this encounter
--- OUTSIDE RECORDS SUMMARY | 2021-12-10 12:51 | XMS_ITS | Encounter Summary ---
:1985 Author Organization [place] Address [address] [place] [address]. [place] [address] Care Team Providers Name Role Phone Gina Bautista PA-C Primary Care Provider [phone] Gina Bautista PA-C Unavailable [phone] Gina Bautista PA-C Unavailable [phone] Gina Bautista PA-C Unavailable [phone] Encounter Details Date Type Department Care Team Description 04/24/2017 Office Visit [facility] Lisa Lopez LP Anxiety (Primary Dx) Services [address] [phone] Social History Tobacco Use Types Packs/Day Years [...] plan. Lisa Lopez LP February 19, 2017 [employer] documented in this encounter Plan of Treatment Upcoming Encounters Date Type Specialty Care Team Description 01/07/2022 Virtual Visit Endocrinology Natalya Jean MD [address] [place] [address] (Wo rk) documented as of this encounter Visit Diagnoses Diagnosis Anxiety - Primary Anxiety state, unspecified documented in this encounter Additional Health Concerns Assessment Noted Time PHQ-9 Depression Total Score: 10 04/25/2017 8:01 AM CS T documented as of this encounter Care Teams Scallop Cutter Machine Relationship Specialty Start Date End Date Gina Bautista, PCP - General Physician Swimming Instructor 5 09/03/21 [place] [address] [place] [id number] Gina Bautista, PCP - Assigned PCP 01/12/15 05/11/18 PA-C 34[address] [place] [address] Gina Bautista, Physician Swimming Instructor 01/31/15 PA-C [address] [place] [address] Gina Bautista, Assigned PCP 01/12/15 PA-C [address]696 [place] [address] documented as of this encounter
--- NOTE | 2021-12-10 13:00 | CRLHL7_ITS ---
For Patients: As a result of the Cures Act, medical imaging exams and procedure reports are released immediately into your electronic medical record. You may view this report before your referring provider. If you have questions, please contact your health care provider. OBSTETRICAL ULTRASOUND, 12/10/2021 CLINICAL HISTORY: History of labor. KATRIN by LMP: 03/30/2022 GESTATIONAL AGE: 24 weeks 2 days TECHNIQUE: Transabdominal pelvic ultrasound. FINDINGS: There are hypoechoic areas within the placenta visualized. These most likely reflect placental lakes. Cervix: Visualized, 3.3 cm position: Breech Amniotic fluid: 6.7 cm SDP Placenta position: Fundal, posterior heart rate: 149 bpm Biometry: BPD: 6.0 cm, 24 weeks 4 days, 54% HC: 22.4 cm, 24 weeks 3 days, 37% AC: 21.9 cm, 26 weeks 3 days, 93% FL: 4.3 cm, 24 weeks 2 days, 35% FL/AC: 19.8% HC/AC ratio: 1.02 Estimated weight: 796 grams (1 pound 2 ounces) age by this ultrasound: 25 weeks 0 days KATRIN by this ultrasound: 03/25/2022 Percentile by KATRIN: 86% IMPRESSION: 1) Single live intrauterine gestation with composite gestational age of 25 weeks 0 days and KATRIN of 03/25/2022. No gross anomalies visualized. 2) Estimated weight of 796 grams which lies at the 86th percentile. SILVINA SILVA M.D. Diagnostic/Breast Radiologist [email or web address] Transcribed: 4:[address]/Dictated by: Silvina Silva MD @ 12/10/2021 3:29:00 PM (Electronically Signed)
== END 2021-12-10 12:45 | disposition home or self-care (01) ==
PROVIDERS: PCP Internal Medicine; Visit Provider Obstetrics & Gynecology
DX: O09.212 Supervision of pregnancy with history of pre-term labor, second trimester (principal); Z3A.24 24 weeks gestation of pregnancy
CPT/HCPCS: 76816; 76817

== ENCOUNTER 2021-12-17 14:14 | Outpatient (CLI) | payer BC, SELFPAY ==
--- OUTSIDE RECORDS SUMMARY | 2021-12-17 15:38 | XMS_ITS | Encounter Summary ---
:1985 Author Organization [place] Address [address] [place] [address]. [place] [address] Care Team Providers Name Role Phone Gina Bautista PA-C Primary Care Provider [phone] Gina Bautista PA-C Unavailable [phone] Vidya Espinal APRN [facility] Unavailable [phone] [facility], [facility] Unavailable Encounter Details Date Type Department Care Team Description 08/08/2021 Medical Correspondence [facility] Scan, ENDOCRINOLOGY ORDER Health Info [facility] Non-Provider [facility] [address] [place] [phone] Social History Tobacco Use Types Packs/Day Years Used Date Smoking Tobacco: Never Smokeless Tobacco: Never Alcohol Use Standard Drinks/Week Comments Yes 0 (1 standard drink = 0.6 oz pure alcoho l) Sex Assigned at Date Recorded Not on file documented as of this encounter Plan of Treatment Upcoming Encounters Date Type Specialty Care Team Description 01/07/2022 Virtual Visit Endocrinology Natalya Jean MD [address] [place] [address] (Wo rk) documented as of this encounter Visit Diagnoses Not on filedocumented in this encounter Additional Health Concerns Assessment Noted Time PHQ-9 Depression Total Score: 10 05/09/2017 8:01 AM CS T documented as of this encounter Care Teams Cabinet Mounter Relationship Specialty Start Date End Date Gina Bautista, PCP - General Physician Rn First Assistant 5 09/03/21 [place] [address] [place] [id number] Gina Bautista, Physician Rn First Assistant 01/31/15 [place] [address] [place] [id number] Vidya Espinal APRN CNM Last Repairer Helper 08/21/[address] [place] [address] [phone] [facility], [facility] 08/21/[address] [address] documented as of this encounter
--- OUTSIDE RECORDS SUMMARY | 2021-12-17 15:38 | XMS_ITS | Encounter Summary ---
:1985 Author Organization [place] Address [address] [place] [address]. [place] [address] Care Team Providers Name Role Phone Gina Bautista PA-C Primary Care Provider [phone] Gina Bautista PA-C Unavailable [phone] Vidya Espinal APRN [facility] Unavailable [phone] [facility], [facility] Unavailable Encounter Details Date Type Department Care Team Description 2021 Medical Correspondence [facility] Scan, ENDOCRINOLOGY Health Info Mgmt Non-Provider REFERRAL [address] [address] Social History Tobacco Use Types [...] [address] [place] [address] (Wo rk) documented as of this encounter Visit Diagnoses Not on filedocumented in this encounter Additional Health Concerns Assessment Noted Time PHQ-9 Depression Total Score: 10 05/09/2017 8:01 AM CS T documented as of this encounter Care Teams Motorboat Mechanic Inboard Relationship Specialty Start Date End Date Gina Bautista, PCP - General Physician Sales Coach 5 09/03/21 [place] [address] [place] [id number] Gina Bautista, Physician Sales Coach 01/31/15 [place] [address] [place] [phone] Vidya Espinal APRN CNM Business Department Chair 08/21/[address] [place] [address] [facility], [facility] 08/21/[address] [address] documented as of this encounter
--- OUTSIDE RECORDS SUMMARY | 2021-12-17 15:38 | XMS_ITS | Encounter Summary ---
:1985 Author Organization [place] Address [address] [place] [address]. [place] [address] Care Team Providers Name Role Phone Gina Bautista PA-C Primary Care Provider [phone] Gina Bautista PA-C Unavailable [phone] Gina Bautista PA-C Unavailable [phone] Gina Bautista PA-C Unavailable [phone] Reason for Visit Reason Onset Date Comments Outreach 05/27/2017 Encounter Details Date Type Department Care Team Description 05/27/2017 Telephone [facility] Lyle Bautista, Outreach Lucia BERNAL [address] [address] [place] [address] [place] [id number] (Wo rk) Social History Tobacco Use Types [...] Panchito Gandhi sent at 04/15/2017 4:53 PM CLAIM ATTORNEY ----- Call pt to schedule lab only in next 2 weeks. Labs pended. Panchito Gandhi CMA (AAMA) documented in this encounter Plan of Treatment Upcoming Encounters Date Type Specialty Care Team Description 01/07/2022 Virtual Visit Endocrinology Natalya Jean MD [address] [place] [address] (Wo rk) documented as of this encounter Visit Diagnoses Not on filedocumented in this encounter Additional Health Concerns Assessment Noted Time PHQ-9 Depression Total Score: 10 05/09/2017 8:01 AM CS T documented as of this encounter Care Teams Career Developer Relationship Specialty Start Date End Date Gina Bautista, PCP - General Physician Wad Compressor Operator Adjuster 5 09/03/21 PA-C [address]91 [place] [address] Gina Bautista, PCP - Assigned PCP 01/12/15 05/11/18 PA-C 00890 [place] [address] Gina Bautista, Physician Wad Compressor Operator Adjuster 01/31/15 PA-C 26715 [place] [id number] Gina Bautista, Assigned PCP 01/12/15 PA-C 18159 [place] [id number] documented as of this encounter
--- OUTSIDE RECORDS SUMMARY | 2021-12-17 15:38 | XMS_ITS | Encounter Summary ---
:1985 Author Organization [place] Address [address] [place] [address] Care Team Providers Name Role Phone Gina Bautista PA-C Primary Care Provider [phone] Gina Bautista PA-C Unavailable [phone] Encounter Details Date Type Department Care Team Description 08/06/2020 Records - [facility] CONVERSION Provider, Histor ical Social History [...] [address] [place], [place] [address] (Wo rk) documented as of this encounter [...] documented as of this encounter Care Teams Litigation Counsel Relationship Specialty Start Date End Date Gina Bautista PA-C PCP - General Physician Manager Fine 01/31/15 09/03/21 [id number] [place] [id number] Gina Bautista PA-C Physician Manager Fine 01/31/15 [address] [place] [address] documented as of this encounter
--- OUTSIDE RECORDS SUMMARY | 2021-12-17 15:38 | XMS_ITS | Encounter Summary ---
:1985 Author Organization [place] Address [address] [place] [address] Care Team Providers Name Role Phone Gina Bautista PA-C Primary Care Provider [phone] Gina Bautista PA-C Unavailable [phone] Vidya Espinal APRN [facility] Unavailable [phone] [place] [address] Unavailable Reason for Referral Consultation (Urgent: 3-5 Days) - Pending Review Specialty Diagnoses / Procedures Referred By Contact Refer red To Contact Endocrinology, Diagnoses Hypothyroidism System, Provider Not Diabetes, and In Metabolism Referral ID Status Reason Start Date Expiration Date Visits V isits Requested Authorized [id number] Pending 2021 2022 1 1 Review Scheduling [...] Natalya Jean MD [address] [facility] [address] [place] [address] (Wo rk) Scheduled Referrals Name Type Priority Associated Diagnoses Order S chedule Adult Endocrinology Referral Urgent: 3-5 Days Hypothyroidism Ex pected: Ratchet Setter Referral 2 (Approximate), Expires: 2022 documented as of this encounter Visit Diagnoses Diagnosis Hypothyroidism - Primary Unspecified hypothyroidism documented in this encounter Additional Health Concerns Assessment Noted Time PHQ-9 Depression Total Score: 10 05/09/2017 8:01 AM CS T documented as of this encounter Care Teams Dairy Farm Manager Relationship Specialty Start Date End Date Gina Bautista, PCP - General Physician Search Engine Marketing Specialist 5 09/03/21 [place] [address] [place] [address] Gina Bautista, Physician Search Engine Marketing Specialist 01/31/15 [place] [address] [place] [address] Vidya Espinal APRN CNM Territory Account Executive 08/21/[address] [place] [address] [facility], [facility] 08/21/[address] [address] documented as of this encounter
--- OUTSIDE RECORDS SUMMARY | 2021-12-17 15:38 | XMS_ITS | Encounter Summary ---
:1985 Author Organization [place] Address [address] [place] [address]. [place] [address] Care Team Providers Name Role Phone Gina Bautista PA-C Primary Care Provider [phone], Gina Vance PA-C Unavailable [phone] Gina Bautista PA-C Unavailable [phone] Michele, Gina Vance PA-C Unavailable [phone] Encounter Details Date Type Department Care Team Description 11/12/2017 [facility] Lisa Lopez LP Documentation Services [address] [phone] Social History Tobacco Use Types Packs/Day Years [...] Jo Date: 1985 Intake / Discharge Date: 02-06-1805-22-17 DSM5 Diagnoses: (Sustained by DSM5 Criteria Listed [...] MD [address] [place] [address] (Wo rk) documented as of this encounter Visit Diagnoses Not on filedocumented in this encounter Additional Health Concerns Assessment Noted Time PHQ-9 Depression Total Score: 10 05/09/2017 8:01 AM CS T documented as of this encounter Care Teams Brand Inspector Relationship Specialty Start Date End Date Gina Bautista, PCP - General Physician Color Grinder 5 09/03/21 PA-C 125[address] [place] [id number] Gina Bautista, PCP - Assigned PCP 01/12/15 05/11/18 PA-C 69884 [place] [address] Gina Bautista, Physician Color Grinder 01/31/15 PA-C 39060 [place] [address] Gina Bautista, Assigned PCP 01/12/15 PA-C 00069 [place], [place] [address] documented as of this encounter
--- OUTSIDE RECORDS SUMMARY | 2021-12-17 15:38 | XMS_ITS | Encounter Summary ---
:1985 Author Organization [facility] Address [address] [place] [address] Care Team Providers Name Role Phone Gina Bautista PA-C Primary Care Provider [phone] Oestrfrances, Gina Vance PA-C Unavailable [phone] Gina Bautista PA-C Unavailable [phone] Oestrfrances, Gina Vance PA-C Unavailable [phone] Encounter Details Date Type Department Care Team Description 06/11/2017 Hospital Pathology [facility] Results MD Brynn ATM TECHNICIAN SPECIALIS TS [address] [facility] [address] [place], [place] [address] (Wo rk) Social History Tobacco Use Types [...] ST ST [address] [place], [place] [address] (Wo rk) documented as of this encounter Procedures Procedure Name Priority Date/Time Associated Diagnosis Comme [facility] SURGICAL PATHOLOGY Routine 06/11/2017 11:30 AM Re sults for this EXAM CDT procedure are i n the results section. documented in this encounter Results Surgical pathology exam (06/11/2017 11:30 AM CDT) Component Value Ref Test Analysis Performed At [facility] Range Method Time Signature Copath Report Patient Name: CARLEY JO MR#: [id number] Specimen #: [id number] Collected: 06/11/2017 Received: 06/11/2017 Reported: 06/12/2017 14:08 [...] par ts or translucent vesicles are identified. Histology Teacher sections are submitted in 2 blocks. ??The rem ainder of the specimen is handled per [facility] POC protocol. (Dictated by: ASHLEY Martinez 06/11/2017 03:17 PM) MICROSCOPIC: Microscopic examination is performed. CPT Codes: A: 52535-TZ0, SO TESTING LAB LOCATION: [facility] [address] [place] [address] ??[phone] COLLECTION SITE: Client: [facility] Location: R548 (F) Specimen Anatomical Collection Method Collection Time Receive d Time (Source) Location / / Volume Laterality 06/11/2017 11:30 06/11/2017 2:41 AM CDT PM CDT Ryne GUZMÁN - ADENKIE DILLON Performing Organization Address City/State/ZIP Code Phon e Number COPATH documented in this encounter Visit Diagnoses Not on filedocumented in this encounter Additional Health Concerns Assessment Noted Time PHQ-9 Depression Total Score: 10 05/09/2017 8:01 AM CS T documented as of this encounter Care Teams Processing Rep Relationship Specialty Start Date End Date Gina Bautista, PCP - General Physician Head Greenskeeper 5 09/03/21 PA-C 70067 [place] [address] Gina Bautista, PCP - Assigned PCP 01/12/15 05/11/18 PA-C 77748 [place] [id number] Gina Bautista, Physician Head Greenskeeper 01/31/15 PA-C 71757 [place] [address] Gina Bautisat, Assigned PCP 01/12/15 PA-C 12724 [place] [id number] documented as of this encounter
--- OUTSIDE RECORDS SUMMARY | 2021-12-17 15:38 | XMS_ITS | Clinical Summary ---
:1985 Author Organization [facility] [place] [address] Care Team Providers Name Role Phone Pcp, [...] = 9 in March; Hgb 10.3 at [facility] before transfer History of delivery 02/02/2018 [...] if not delivered. 7. contractions with mild manufacturing teacher al cervical change, admitted to [facility] and received steroids x 2. It's a [...] 01/16/2023 01/17/2020, 01/17/2020, 12/19/2016 (Completed [facility] of [facility]) Tetanus booster 04/05/2028 04/05/2018, 03/09/2012 Tdap Completed 04/05/2018, 03/09/2012 Results Not on filefrom Last 3 Months Advance Directives Latest Code Status on File Code Status Date Activated Date Inactivated Comments Full Code 05/25/2018 11:18 PM 05/28/2018 2:46 PM Full Code 05/03/2018 7:52 PM 05/04/2018 5:01 PM Full Code 07/04/2013 11:25 AM 07/04/2013 4:53 PM Care Teams Chief Investment Officer Relationship Specialty Start Date End Date Pcp, No PCP - General 01/15/19 .
--- OUTSIDE RECORDS SUMMARY | 2021-12-17 15:38 | XMS_ITS | Clinical Summary ---
:1985 Author Organization [place] Address [address] [place] [address] Care Team Providers Name Role Phone Gina Bautista PA-C Unavailable [phone] Vidya Espinal APRN CN Unavailable [phone] [facility] Unavailable Marissa Jean MD Unavailable Violette [...] symptoms greater than 10 days fluticasone (FLONASE) [facility] 1-2 sprays 1 Bottle 11 02/22/2017 Active 50 MCG/ACT into both nostrils sprayIndications: daily Acute sinusitis with symptoms greater than 10 days vitamin D Take 1 capsule 12 capsule 0 04/14/2017 Act clay[place] (ERGOCALCIFEROL) (50,000 [place]) [place] [address] UNIT mouth once a week capsuleIndications: Lab [...] Comments Blood Pressure 108/62 02/22/2017 11:59 AM VULNERABILITY RESEARCHER Pulse 61 02/22/2017 11:59 AM VULNERABILITY RESEARCHER Temperature 36.7 ??C (98.1 ??F) 02/22/2017 11:59 AM VULNERABILITY RESEARCHER Respiratory Rate 15 12/19/2016 2:53 PM CDT Oxygen Saturation 100% 02/22/2017 11:59 AM VULNERABILITY RESEARCHER Inhaled Oxygen Concentration - - Weight 79.3 kg (174 lb 12.8 oz) 01/27/2017 1:05 PM VULNERABILITY RESEARCHER Height 167.6 cm (5' 6) 12/19/2016 2:53 PM CDT Body Mass Index 28.21 12/19/2016 2:53 PM CDT Plan of Treatment Upcoming Encounters Date Type Specialty Care Team Description 01/07/2022 Virtual Visit Endocrinology Natalya Jean MD [address] [place], [place] [address] (Wo rk) Health Maintenance Due Date Last Done Comments ADVANCE CARE PLANNING 1985 ANNUAL REVIEW OF HM ORDERS 1985 COVID-19 Vaccine (#1) 02/20/1988 YEARLY PREVENTIVE VISIT 12/19/2017 12/19/2016, 04/25/2015 PHQ-2 (once per [...] e / Group Dates MEDICA MEDICA CHOICE [id number] 2016-Pres [phone] demnity [phone] [place] [address] [place] [id number] 2021-Pres [phone] [address] Indemnity 1 ent [phone] [place] [address] [facility] [id number] 2016-Pres [address] PPO BEHAVIORAL ent [phone] [place] [address] [facility] Self [address] [facility] ([place]) [place] [address] Care Teams Paradichlorobenzene Tender Relationship Specialty Start Date End Date Violette Bolden CNM PCP - General 09/04/21 [facility] [address] [place] [address] Gina Bautista, Physician Assembly Machine Set Up Mechanic 01/31/15 PA-C [address] [place], [place] [id number] Vidya Espinal APRN CNM Manager Support Services 08/21/[address] [place], [place] [id number] [facility]21 [facility] [address] [place] [address] Marissa Jean MD Hospitalist Endocrinology, 09/04/21 [address] Diabetes, and [address] Metabolism [place], [place] [address]
--- OUTSIDE RECORDS SUMMARY | 2021-12-17 15:38 | XMS_ITS | Encounter Summary ---
:1985 Author Organization [place] Address [address] [place] [address] Care Team Providers Name Role Phone Gina Bautista PA-C Unavailable [phone] Vidya Espinal APRN, CNM Unavailable [facility] Unavailable Marissa Jean MD Unavailable Violette Bolden CNM Primary Care Provider Reason for Visit Reason Onset Date Comments Appointment 09/04/2021 Encounter Details Date Type Department Care Team Description 09/04/2021 Telephone [facility] Natalya Jean Appointment [place] MD [address] [facility] [address] [place] [address] [place] [address] (Wo rk) Social History Tobacco Use Types Packs/Day Years Used Date Smoking Tobacco: Never Smokeless Tobacco: Never Alcohol Use Standard Drinks/Week Comments Yes 0 (1 standard drink = 0.6 oz pure alcoho l) Sex Assigned at Date Recorded Not on file documented as of this encounter Miscellaneous Notes Telephone Encounter - ZulayBhavana - 09/04/2021 12:21 PM CDT [facility], relayed message to sagger soak she will relay this message to the [...] Kendall Burden - 09/04/2021 9:08 AM CDT [facility] Phone Message May a detailed [...] [address] [place] [address] (Wo rk) documented as of this encounter Visit Diagnoses Not on filedocumented in this encounter Additional Health Concerns Assessment Noted Time PHQ-9 Depression Total Score: 10 05/09/2017 8:01 AM CS T documented as of this encounter Care Teams Carpenter Assistant Installer Relationship Specialty Start Date End Date Violette Bolden CNM PCP - General 09/04/21 [facility] [address] [place] [address] Gina Bautista, Physician Service Electrician 01/31/15 PA-C [address] [place] [address] Vidya Espinal APRN CNM Wheel Aligner 08/21/[address] [phone] [facility] 08/21/21 [facility] [address] [place] [address] Marissa Jean MD Hospitalist Endocrinology, 09/04/21 [address] Diabetes, and [address] [place] [address] documented as of this encounter
--- OUTSIDE RECORDS SUMMARY | 2021-12-17 15:39 | XMS_ITS | Encounter Summary ---
:1985 Author Organization [place] Address [address] [place] [address]. [place] [address] Care Team Providers Name Role Phone Paul Palumbo PA-C Primary Care Provider [phone] Paul Palumbo PA-C Unavailable [phone] Paul Palumbo PA-C Unavailable [phone] Paul Palumbo PA-C Unavailable [phone] Reason for Referral Consultation - Closed Specialty Diagnoses / Procedures Referred By Contact Refer red To Contact Diagnoses Low hemoglobin S/P gastric bypass Vitamin B 12 deficiency Paul Palumbo [facility] [address] [place] [address] [address] [place] [address] Phone: [phone] Fax: Referral ID Status Reason Start Date Expiration Date Visits Requ ested Visits Authorized [id number] Closed 12/24/2016 12/24/2017 1 1 MACHINE RUG CLEANER - Closed Specialty Diagnoses / Procedures Referred By Contact Refer red To Contact Diagnoses Family planning counseling IUD check up Paul Palumbo [facility] DOLORES V[place] [address] [place] [address] [place] [address] [place] [address] Phone: Fax: Referral ID Status Reason Start Date Expiration Date Visits Requ ested Visits Authorized [id number] Closed 12/19/2016 12/19/2017 1 1 Reason for Visit Reason Comments Physical Flu Shot Encounter Details Date Type Department Care Team Description 12/19/2016 Office Visit [facility] Paul Palumbo general medical examination at a health care facility (Primary Dx); Clinic Jigna Vance PA-C 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 - MACHINE RUG CLEANER REFERRAL 9. Family planning counseling Patient interested in future , was high risk in past, had 4 miscarriages. Will refer to MACHINE RUG CLEANER to discuss future conception. - MACHINE RUG CLEANER REFERRAL 10. Need for prophylactic vaccination and inoculation against influenza - FLU VAC, SPLIT VIRUS IM > 3 YO (QUADRIVALENT) [24420] - Vaccine Administration, Initial [72100] COUNSELING: Reviewed preventive health counseling, as reflected [...] hemoglobin and mood issues. Paul Palumbo PA-C [facility] [place] Answers for HPI/ROS submitted [...] [address] [place] [address] (Wo rk) Scheduled Referrals Name Type Priority Associated Diagnoses Order S chedule MACHINE RUG CLEANER REFERRAL Referral Routine Family planning Ordered: 12/19/2016 [...] or this PM CDT medical examination at [facility] are in a health care facility [...] or this PM CDT medical examination at [facility] are in a health care facility the [...] T4 reflex FUTURE 2mo (04/10/2017 2:35 PM NETWORK SECURITY OFFICER) athologist Signature TSH 10.56 (H) 0.40 - 04/12/2017 [facility] 4.00 mU/L 1:28 PM NETWORK SECURITY OFFICER [facility] Specimen Anatomical Collection Method Collection Time Receive d Time (Source) Location / / Volume Laterality Blood specimen 04/10/2017 2:35 PM 018 2:36 (specimen) NETWORK SECURITY OFFICER PM NETWORK SECURITY OFFICER Paul Palumbo PA-C LAB - BLOOD ORDERABLES Performing Organization Address City/State/ZIP Code Phon e Number [facility] [address] [place] [address] (ABNORMAL) Vitamin D Deficiency (04/10/2017 2:35 PM NETWORK SECURITY OFFICER) athologist Signature Vitamin D 13 (L) 20 - 75 04/11/2017 [facility] Deficiency ug/L 11:46 AM NETWORK SECURITY OFFICER [facility] Comment: Season, race, dietary intake, and treatm ent affect the concentration of 28-nfsqhec-Ybdeyvl D. Values may decreas e during winter [...] specimen 04/10/2017 2:35 PM 018 2:36 (specimen) NETWORK SECURITY OFFICER PM NETWORK SECURITY OFFICER Paul Palumbo PA-C LAB - BLOOD ORDERABLES Performing Organization Address City/State/ZIP Code Phon e Number [facility] [address] [place] [address] [facility] T4 free (12/19/2016 3:33 PM CDT) athologist Signature T4 Free 1.00 0.76 - 1.46 12/20/2016 [facility] ng/dL 1:20 PM CDT [facility] Specimen Anatomical Collection Method Collection Time Receive d Time (Source) Location / / Volume Laterality 12/19/2016 3:33 PM 7 3:34 CDT PM CDT Paul Palumbo PA-C LAB - BLOOD ORDERABLES Performing Organization Address City/State/ZIP Code Phon e Number [facility] [address] [place] [address] WBC Differential (12/19/2016 3:33 PM CDT) [facility] gist Method Time Signature Diff Method Automated 12/19/2016 [place] Method 9:06 PM [facility] % Neutrophils 64.0 % 12/19/2016 [place] 9:06 PM [facility] % Lymphocytes 25.2 % 12/19/2016 [place] 9:06 PM [facility] % Monocytes 7.7 % 12/19/2016 [place] 9:06 PM [facility] % Eosinophils 2.3 % 12/19/2016 [place] 9:06 PM [facility] % Basophils 0.5 % 12/19/2016 [place] 9:06 PM [facility] % Immature 0.3 % 12/19/2016 [facility] Granulocytes 9:06 PM [facility] Nucleated RBCs 0 0 /100 12/19/2016 [facility] 9:06 PM [facility] Absolute 4.2 1.6 - 8.3 12/19/2016 [facility] Neutrophil 10e9/L 9:06 PM [facility] Absolute 1.7 0.8 - 5.3 12/19/2016 [facility] Lymphocytes 10e9/L 9:06 PM [facility] Absolute 0.5 0.0 - 1.3 12/19/2016 [facility] Monocytes 10e9/L 9:06 PM [facility] Absolute 0.2 0.0 - 0.7 12/19/2016 [facility] Eosinophils 10e9/L 9:06 PM [facility] Absolute 0.0 0.0 - 0.2 12/19/2016 [facility] Basophils 10e9/L 9:06 PM [facility] Abs Immature 0.0 0 - 0.4 12/19/2016 [facility] Granulocytes 10e9/L 9:06 PM [facility] Absolute 0.0 12/19/2016 [facility] Nucleated RBC 9:06 PM [facility] Anisocytosis Slight 12/19/2016 [facility] 9:06 PM [facility] Ovalocytes Slight 12/19/2016 [facility] 9:06 PM [facility] Microcytes Present 12/19/2016 [facility] 9:06 PM [facility] Platelet Normal 12/19/2016 [facility] Estimate 9:06 PM [facility] Specimen Anatomical Collection Method Collection Time Receive d Time (Source) Location / / Volume Laterality 12/19/2016 3:33 PM 7 4:07 CDT PM CDT Paul Palumbo PA-C LAB - BLOOD ORDERABLES Performing Organization Address City/State/ZIP Code Phon e Number [facility] [address] [place], [place] [address] [facility] [address] [phone] Reticulocyte Count (12/19/2016 3:33 PM CDT) P athologist Signature % Retic 1.1 0.5 - 2.0 12/19/2016 [place] % 7:25 PM CDT [facility] Absolute Retic 43.0 25 - 95 12/19/2016 [place] 10e9/L 7:25 PM CDT [facility] Specimen Anatomical Collection Method Collection Time Receive d Time (Source) Location / / Volume Laterality Blood specimen 12/19/2016 3:33 PM 017 4:07 (specimen) CDT PM CDT Paul Palumbo PA-C LAB - BLOOD ORDERABLES Performing Organization Address City/State/ZIP Code Phon e Number [facility] [address] [place] [address] [facility] [address] [phone] Blood Morphology Pathologist Review (12/19/2016 3:33 PM CDT) Component Value Ref Test Analysis Performed Pathologis t Range Method Time At Signature Copath Patient Name: TASHA PHELAN Report MR#: [id number] Specimen #: [id number] Collected: 12/19/2016 Received: 12/22/2016 Reported: 12/22/2016 10:01 [...] 12-22-2016 @ 10:01 AM). CPT Codes: A: 96910-INYA TESTING LAB LOCATION: [facility] [address] [place], [place] ??[address] COLLECTION SITE: Client: ??[facility] Location: ??[facility] (R) Specimen Anatomical Collection Method Collection Time Receive d Time (Source) Location / / Volume Laterality Blood specimen 12/19/2016 3:33 PM 017 7:55 (specimen) CDT AM CDT Paul Palumbo PA-C LAB - BEAKER AP Performing Organization Address City/[facility]/ZIP Code Phon e Number [place] (ABNORMAL) Vitamin B12 (12/19/2016 3:33 PM CDT) athologist Signature Vitamin B12 107 (L) 193 - 986 12/19/2016 [facility] pg/mL 10:23 PM CDT [facility] Specimen Anatomical Collection Method Collection Time Receive d Time (Source) Location / / Volume Laterality Blood specimen 12/19/2016 3:33 PM 017 3:34 (specimen) CDT PM CDT Paul Palumbo PA-C LAB - BLOOD ORDERABLES Performing Organization Address City/[facility]/ZIP Code Phon e Number [phone] [place] [address] (ABNORMAL) Vitamin D Deficiency (12/19/2016 3:33 PM CDT) athologist Signature Vitamin D 17 (L) 20 - 75 12/21/2016 [facility] Deficiency ug/L 3:23 PM CDT [facility] Comment: Season, race, dietary intake, and treatm ent affect the concentration of 21-ykkezml-Ynebcpl D. Values may decreas e during winter [...] Organization Address City/State/ZIP Code Phon e Number [facility] [address] [place], [place] [phone] [place] [address] (ABNORMAL) Comprehensive metabolic panel (12/19/2016 3:33 PM CDT) [facility] Method Time Signature Sodium 140 133 - 144 12/20/2016 [facility] mmol/L 12:54 PM CDT CLINICS [facility] Potassium 4.2 3.4 - 5.3 12/20/2016 [facility] mmol/L 12:54 PM CDT CLINICS [facility] Chloride 110 (H) 94 - 109 12/20/2016 [facility] mmol/L 12:54 PM CDT CLINICS [facility] Carbon Dioxide 21 20 - 32 12/20/2016 [facility] mmol/L 12:54 PM CDT [facility] Anion Gap 9 3 - 14 12/20/2016 [facility] mmol/L 12:54 PM CDT CL[facility]ICS [facility] Glucose 85 70 - 99 12/20/2016 [facility] mg/dL 12:54 PM CDT CL[facility]ICS [facility] Urea Nitrogen 9 7 - 30 12/20/2016 [facility] mg/dL 12:54 PM CDT CL[facility]ICS [facility] Creatinine 0.75 0.52 - 12/20/2016 [facility] 1.04 mg/dL 12:54 PM CDT CLINICS [facility] GFR Estimate >90 >60 12/20/2016 [place] mL/min/1.7 12:54 PM CDT CLINICS m2 [facility] Comment: Non GFR Calc GFR Estimate If >90 >60 mL/min/1.7m2 12/20/2016 12:54 PM [facility] Black T [facility] Comment: GFR Calc Calcium 8.7 8.5 - 10.1 12/20/2016 12:54 PM [facility] mg/dL T [facility] Bilirubin Total 0.4 0.2 - 1.3 mg/dL 12/20/2016 12:54 P [facility] Albumin 3.9 3.4 - 5.0 g/dL 12/20/2016 12:54 PM [facility] Protein Total 7.6 6.8 - 8.8 g/dL 12/20/2016 12:54 PM F [facility] CDT [facility] Alkaline Phosphatase 61 40 - 150 U/L 12/20/2016 1:02 PM [facility] ALT 20 0 - 50 U/L 12/20/2016 12:54 PM [facility] AST 15 0 - 45 U/L 12/20/2016 12:54 PM [facility] Specimen Anatomical Collection Method Collection Time Receive d Time (Source) Location / / Volume Laterality Blood specimen 12/19/2016 3:33 PM 017 3:34 (specimen) CDT PM CDT Paul Palumbo PA-C LAB - BLOOD ORDERABLES Performing Organization Address City/State/ZIP Code Phon e Number [facility] [address] [place] [address] (ABNORMAL) TSH with free T4 reflex (12/19/2016 3:33 PM CDT) P athologist Signature TSH 8.78 (H) 0.40 - 12/20/2016 [facility] 4.00 mU/L 1:02 PM CDT [facility] Specimen Anatomical Collection Method Collection Time Receive d Time (Source) Location / / Volume Laterality Blood specimen 12/19/2016 3:33 PM 017 3:34 (specimen) CDT PM CDT Paul Palumbo PA-C LAB - BLOOD ORDERABLES Performing Organization Address City/[facility]/ZIP Code Phon e Number [facility] [address] [place] [address] (ABNORMAL) Iron and iron binding capacity (12/19/2016 3:33 PM CDT) Patholo gist Method Time Signature Iron 10 (L) 35 - 180 12/20/2016 [place] ug/dL 12:54 PM CDT [facility] Iron Binding 528 (H) 240 - 430 12/20/2016 [place] Cap ug/dL 12:54 PM CDT [facility] Iron Saturation 2 (L) 15 - 46 % 12/20/2016 [place] Index 12:54 PM CDT [facility] Specimen Anatomical Collection Method Collection Time Receive d Time (Source) Location / / Volume Laterality Blood specimen 12/19/2016 3:33 PM 017 3:34 (specimen) CDT PM CDT Paul Palumbo PA-C LAB - BLOOD ORDERABLES Performing Organization Address City/[facility]/ZIP Code Phon e Number [facility] [address] [place] [address] (ABNORMAL) Ferritin (12/19/2016 3:33 PM CDT) P athologist Signature Ferritin 2 (L) 12 - 150 12/20/2016 [facility] ng/mL 12:55 PM CDT [facility] Specimen Anatomical Collection Method Collection Time Receive d Time (Source) Location / / Volume Laterality Blood specimen 12/19/2016 3:33 PM 017 3:34 (specimen) CDT PM CDT Paul Palumbo PA-C LAB - BLOOD ORDERABLES Performing Organization Address City/[facility]/ZIP Code Phon e Number [facility] [address] [place] [address] (ABNORMAL) CBC with platelets (12/19/2016 3:33 PM CDT) P athologist Signature WBC 6.4 4.0 - 11.0 12/19/2016 [facility] 3[facility]43 PM [facility] [place] RBC Count 3.97 3.8 - 5.2 12/19/2016 [place] 10e12/L 3:43 PM CDT [facility] Hemoglobin 7.2 (L) 11.7 - 15.7 12/19/2016 [place] g/dL 3:43 PM CDT [facility] Comment: Critical Value called to and read back b y TO PAUL PALUMBO PAC ON12/19/16 1540 DA Hematocrit 25.5 (L) 35.0 - 47.0 % 12/19/2016 3:43 PM CDT [facility] MCV 64 (L) 78 - 100 fl 12/19/2016 3:43 PM CDT [facility] IEW [facility] MCH 18.1 (L) 26.5 - 33.0 pg 12/19/2016 3:43 PM CDT FA [facility] MCHC 28.2 (L) 31.5 - 36.5 g/dL 12/19/2016 3:43 PM CDT [facility] Comment: Results confirmed by repeat mónica t RDW 17.4 (H) 10.0 - 15.0 % 12/19/2016 3:43 PM [facility] CDT [place] Platelet Count 375 150 - 450 10e9/L 12/19/2016 3:43 PM [facility] CDT [facility] Specimen Anatomical Collection Method Collection Time Receive d Time (Source) Location / / Volume Laterality Blood specimen 12/19/2016 3:33 PM 017 3:34 (specimen) CDT PM CDT Paul Palumbo PA-C LAB - BLOOD ORDERABLES Performing Organization Address City/State/ZIP Code Phon e Number [facility] [address] [address] Pap imaged thin layer screen reflex to HPV if ASCUS - recommend age 25 - 29 (12/19/2016 3:05 PM CDT) Component Value Ref Test Analysis Performed At [facility] gist Range Method Time Signature PAP NIL COPATH Copath Report COPATH Patient Name: TASHA PHELAN MR#: [id number] Specimen #: [id number] Collected: 12/19/2016 Received: 12/22/2016 Reported: 12/23/2016 13:10 [...] MATEUSZ Rodrigez (ASCP) Processed and screened at [facility] CLINICAL HISTORY: Currently not having periods, Intra-Uterine Device, Papanicolaou Test Limitations: ??Cervical cytology is a scre ening test with limited sensitivity; regular screening is critical for cancer prevention; Pap tests are primarily effective for the diagnosis/prevention of squamous cell carcinoma, not adenoca rcinomas or other cancers. TESTING LAB LOCATION: [address] ??[address] COLLECTION SITE: Client: ??[facility] Location: [facility] (R) Specimen (Source) Anatomical Collection Method [...] documented as of this encounter Care Teams Duster Tender Relationship Specialty Start Date End Date Paul Palumbo, PCP - General Physician Army Helicopter Pilot 5 09/03/21 PA-C [address] [place] [address] Paul Palumbo, PCP - Assigned PCP 01/12/15 05/11/18 PA-C [address] [place] [address] Paul Palumbo, Physician Army Helicopter Pilot 01/31/15 PA-C [address] [place] [address] Paul Palumbo, Assigned PCP 01/12/15 PA-C [address] [place] [address] documented as of this encounter
--- OUTSIDE RECORDS SUMMARY | 2021-12-17 15:39 | XMS_ITS | Encounter Summary ---
:1985 Author Organization [place] Address [address] [place] [address] Care Team Providers Name Role Phone Unavailable Primary Care Provider Unavailable Encounter Details Date Type Department Care Team Description 05/23/2005 Results [facility] Results EMERGENCY PHYSI [facility] [address] [place] [address] (Wo rk) Social History Tobacco Use Types Packs/Day Years Used Date Smoking Tobacco: Never Assessed Sex Assigned at Date Recorded Not on file documented as of this encounter Plan of Treatment Upcoming Encounters Date Type Specialty Care Team Description 01/07/2022 Virtual Visit Endocrinology Natalya Jean MD [address] [place] [address] (Wo rk) documented as of this encounter Procedures Procedure Name Priority Date/Time Associated Diagnosis Comme [facility] PELVIC Routine 05/23/2005 10:02 AM Results for this NON-OB, COMPLETE REHABILITATION CASE COORDINATOR procedure a re in the results section. documented in this encounter Results SONO PELVIS COMPLETE (05/23/2005 10:02 AM REHABILITATION CASE COORDINATOR) Anatomical Region Laterality Modality Other Specimen (Source) Anatomical Collection Method Collection Time Re ceived Time Location / / Volume Laterality 05/23/2005 10:02 AM REHABILITATION CASE COORDINATOR Impressions 05/26/2005 10:39 AM REHABILITATION CASE COORDINATOR PELVIC ULTRASOUND WITH TRANSVAGINAL - ?? TECHNIQUE: With transvaginal imaging to better evaluate the adnexa. ?? FINDINGS: Normal endometrium of 5 mm. No rmal ovaries. No free fluid seen. The exam is otherwise unremarkable . [facility] documented in this encounter Visit Diagnoses Not on filedocumented in this encounter
--- OUTSIDE RECORDS SUMMARY | 2021-12-17 15:39 | XMS_ITS | Encounter Summary ---
:1985 Author Organization [place] Address [address] [place] [address]. [place] [address] Care Team Providers Name Role Phone Gnia Bautista PA-C Primary Care Provider [phone] Gina Bautista PA-C Unavailable [phone] Gina Bautista PA-C Unavailable [phone] Gina Bautista PA-C Unavailable [phone] Reason for Visit Reason Comments Urgent Care URI Colds x3-4- facial pain and pressure, sinus pressure, MAK, achy lymphnofe, L ear pain- unable to hear f rom L ear. Encounter Details Date Type Department Care Team Description 02/22/2017 Office Visit [facility] Johny Puga, Acute sinusitis with Urgent Care Ferny gage MD symptoms greater than [address] [address] [address] TAY Jason 10 days (Primary Dx) [place] [address] [phone] Social History Tobacco Use Types Packs/Day Years Used Date Smoking Tobacco: Never Smokeless Tobacco: Never Alcohol Use Standard Drinks/Week Comments Yes 0 (1 standard drink = 0.6 oz pure alcoho l) Sex Assigned at Date Recorded Not on file documented as of this encounter Last Filed Vital Signs Vital Sign Reading Time Taken Comments Blood Pressure 108/62 02/22/2017 11:59 AM CAR RESTORER Pulse 61 02/22/2017 11:59 AM CAR RESTORER Temperature 36.7 ??C (98.1 ??F) 02/22/2017 11:59 AM CAR RESTORER Respiratory Rate - - Oxygen Saturation 100% 02/22/2017 11:59 AM CAR RESTORER Inhaled Oxygen Concentration - - Weight - [...] have suggested that the patient Push fluids. RESTORER documented in this encounter Nursing Notes Nury [...] lb 12.8 oz (79.3 kg). Medication Reconciliation: jennifer Nation CMA (AASANDRA) RESTORER documented in this encounter Plan of Treatment Upcoming Encounters Date Type Specialty Care Team Description 01/07/2022 Virtual Visit Endocrinology Natalya Jean MD [address] [place] [address] (Wo rk) documented as of this encounter Visit Diagnoses Diagnosis Acute sinusitis with symptoms greater th an 10 days - Primary Acute sinusitis, unspecified documented in this encounter Additional Health Concerns Assessment Noted Time PHQ-9 Depression Total Score: 9 02/19/2017 2:07 PM CAR RESTORER documented as of this encounter Care Teams Children'S Lunchroom Supervisor Relationship Specialty Start Date End Date Gina Bautista, PCP - General Physician Loss Prevention Agent 5 09/03/21 PA-C 54947 [place] D[place]ALL [address] Gian Bautista, PCP - Assigned PCP 01/12/15 05/11/18 PA-C 97205 [place] [address] [address] Gina Bautista, Physician Loss Prevention Agent 01/31/15 PA-C 08483 [place] DUVALL [address] Gina Bautista, Assigned PCP 01/12/15 PA-C 09669 M[place] DUVALL [address] documented as of this encounter
--- OUTSIDE RECORDS SUMMARY | 2021-12-17 15:39 | XMS_ITS | Encounter Summary ---
:1985 Author Organization [place] Address [address] [place] [address]. [place] [address] Care Team Providers Name Role Phone Gina Bautista PA-C Primary Care Provider [phone] Gina Bautista PA-C Unavailable [phone] Gina Bautista PA-C Unavailable [phone] Gina Bautista PA-C Unavailable [phone] Encounter Details Date Type Department Care Team Description 04/27/2015 Telephone [facility] Lyle Bautista [place] PA-C [address] [address] [place] [address] [place] [phone] (Wo rk) Social History Tobacco Use Types Packs/Day Years Used Date Smoking Tobacco: Never Smokeless Tobacco: Never Alcohol Use Standard Drinks/Week Comments Yes 0 (1 standard drink = 0.6 oz pure alcoho l) Sex Assigned at Date Recorded Not on file documented as of this encounter Miscellaneous Notes Telephone Encounter - Gina Bautista PA-C - 04/27/2015 8:25 AM NATIONAL SALES Spoke with patient regarding labs. Will restart Synthroid 75mcg daily, recheck in 6-8 weeks Discussed low hemoglobin, will have her get labs today and then start iron replacement BID, recheck in 6-8 weeks as well. Discussed remained of labs. Gina Bautista PA-C ONAL SALES Telephone Encounter - Monica Tony CMA - 04/27/2015 8:20 AM CST Per patient, placed letter at exhibit artist for patient picker operator Marianne Tony CMA (AAWI) 04/27/2015 8:21 AM ONAL SALES Telephone Encounter - Gina Bautista PA-C - 04/27/2015 8:13 AM NATIONAL SALES Left Vm for patient, would like to discuss labs results. Gina Bautista PA-C ONAL SALES documented in this encounter Plan of Treatment Upcoming Encounters Date Type Specialty Care Team Description 01/07/2022 Virtual Visit Endocrinology Natalya Jean MD [address] [place] [address] (Wo rk) documented as of this encounter Visit Diagnoses Not on filedocumented in this encounter Additional Health Concerns Assessment Noted Time PHQ-9 Depression Total Score: 16 04/26/2015 8:54 AM CS T documented as of this encounter Care Teams Gambling Dealer Relationship Specialty Start Date End Date Gina Bautista, PCP - General Physician Metal Coater 5 09/03/21 [place] [address] [place] DUVALL [address] Gina Bautista PCP - Assigned PCP 01/12/15 05/11/18 [place] [address] [place] [address] Gina Bautista Physician Metal Coater 01/31/15 [place] [address] [place] DUVALL [address] Gina Bautista, Assigned PCP 01/12/15 [place] [address] M[place] DUVALL [address] documented as of this encounter
--- OUTSIDE RECORDS SUMMARY | 2021-12-17 15:39 | XMS_ITS | Encounter Summary ---
:1985 Author Organization [place] Address [address] [place] [address]. [place] [address] Care Team Providers Name Role Phone Gina Bautista PA-C Primary Care Provider [phone] Gina Bautista PA-C Unavailable [phone] Gina Bautista PA-C Unavailable [phone] Gina Bautista PA-C Unavailable [phone] Reason for Visit Mental Health Outpatient (Routine) - Closed Specialty Diagnoses / Procedures Referred By Contact Refer red To Contact Gina Bautista FAIR[facility] DOLORES [facility] [id number] [place] [phone] [place] [address] [place] [address] Phone: Fax: Referral ID Status Reason Start Date Expiration Date Visits Requ ested Visits Authorized [facility] Closed 01/14/2017 01/14/2018 1 52 Encounter Details Date Type Department Care Team Description 02/19/[address] [facility] Lisa Lopez LP Anxiety (Primary Dx) Services [place] [address] [facility] [address] [place] [address] Social History Tobacco Use Types Packs/Day Years Used Date Smoking Tobacco: Never Smokeless Tobacco: Never Alcohol Use Standard Drinks/Week Comments Yes 0 (1 standard drink = 0.6 oz pure alcoho l) Sex Assigned at Date Recorded Not on file documented as of this encounter Progress Notes Lisa Lopez, LP - 02/19/2017 1:52 PM CST Images [...] decree) Talks to relatives ( who are conciliator) to get concrete info. Explored TIP skills. [...] plan. Lisa Lopez LP February 19, 2017 SYSTEMS WORKER documented in this encounter Plan of Treatment Upcoming Encounters Date Type Specialty Care Team Description 01/07/2022 Virtual Visit Endocrinology Natalya Jean MD [address] [place] [address] (Wo rk) documented as of this encounter Visit Diagnoses Diagnosis Anxiety - Primary Anxiety state, unspecified documented in this encounter Additional Health Concerns Assessment Noted Time PHQ-9 Depression Total Score: 9 02/19/2017 2:07 PM GAS SYSTEMS WORKER documented as of this encounter Care Teams Mine Supervisor Relationship Specialty Start Date End Date Gina Bautista, PCP - General Physician Motorcycle Delivery Driver 5 09/03/21 PA-C 71325 M[place] DUVALL [address] Gina Bautista, PCP - Assigned PCP 01/12/15 05/11/18 PA-C 51627 M[place] DUVALL [address] Gina Bautista, Physician Motorcycle Delivery Driver 01/31/15 PA-C 42243 M[place] UDVALL [address] Gina Bautista, Assigned PCP 01/12/15 PA-C 86239 M[place] DUVALL [address] documented as of this encounter
--- OUTSIDE RECORDS SUMMARY | 2021-12-17 15:39 | XMS_ITS | Encounter Summary ---
:1985 Author Organization [place] Address [address] [place] [address]. [place] [address] Care Team Providers Name Role Phone Gina Bautista PA-C Primary Care Provider [phone] Gina Bautista PA-C Unavailable [phone] Gina Bautista PA-C Unavailable [phone] Gina Bautista PA-C Unavailable [phone] Encounter Details Date Type Department Care Team Description 04/24/2017 Office Visit [facility] Lisa Lopez LP Anxiety (Primary Dx) Services [address] [phone] Social History Tobacco Use Types Packs/Day Years [...] Lisa Lopez LP February 19, 2017 RVISOR LITHARGE documented in this encounter Plan of Treatment Upcoming Encounters Date Type Specialty Care Team Description 01/07/2022 Virtual Visit Endocrinology Natalya Jean MD [address] [place] [address] (Wo rk) documented as of this encounter Visit Diagnoses Diagnosis Anxiety - Primary Anxiety state, unspecified documented in this encounter Additional Health Concerns Assessment Noted Time PHQ-9 Depression Total Score: 10 04/25/2017 8:01 AM CS T documented as of this encounter Care Teams Forensic Technician Relationship Specialty Start Date End Date Gina Bautista PCP - General Physician Fleshing Machine Operator 5 09/03/21 [place] [address] [place] DUVALL [address] Gina Bautista, PCP - Assigned PCP 01/12/15 05/11/18 PA-C 327[address] [place] [address] Gina Bautista, Physician Fleshing Machine Operator 01/31/15 PA-C 26042 [place] [address] Gina Bautista, Assigned PCP 01/12/15 PA-C 69073 [place] [address] documented as of this encounter
--- OUTSIDE RECORDS SUMMARY | 2021-12-17 15:39 | XMS_ITS | Encounter Summary ---
:1985 Author Organization [place] Address [address] [place] [address]. [place] [address] Care Team Providers Name Role Phone Gina Bautista PA-C Primary Care Provider [phone] Gina Bautista PA-C Unavailable [phone] Gina Bautista PA-C Unavailable [phone] Gina Bautista PA-C Unavailable [phone] Reason for Visit Reason Comments Sinus Problem Encounter Details Date Type Department Care Team Description 07/27/2015 Office Visit [facility] Gina Bautista Acute recurrent Clinic Jigna Vance PA-C maxillary sinusitis [address] (Primary Dx) [place] [id number] [phone] Social History Tobacco Use Types Packs/Day Years [...] She has been treated twice by in [place] with Amoxicillin without relief No fever, very [...] the plan of care. Gina Bautista PA-C [facility] documented in this encounter Nursing [...] phone number for results from this visit [phone] OK to leave message Marianne Tony CMA (AAMA) 07/27/2015 8:58 AM documented in this encounter Plan of Treatment Upcoming Encounters Date Type Specialty Care Team Description 01/07/2022 Virtual Visit Endocrinology Natalya Jean MD [address] [place] [address] (Wo rk) documented as of this encounter Visit Diagnoses Diagnosis Acute recurrent maxillary sinusitis - Pr imary Acute maxillary sinusitis documented in this encounter Additional Health Concerns Assessment Noted Time PHQ-9 Depression Total Score: 16 04/26/2015 8:54 AM CS T documented as of this encounter Care Teams Record Label Intern Relationship Specialty Start Date End Date Gina Bautista, PCP - General Physician Banner Painter 5 09/03/21 PA-C 77[address] [place] [address] Gina Bautista, PCP - Assigned PCP 01/12/15 05/11/18 PA-C 13298 [place] [address] Gina Bautista, Physician Banner Painter 01/31/15 PA-C [address]77[address] [place] [address] Gina Bautista, Assigned PCP 01/12/15 PA-C 35425 [place] [address] documented as of this encounter
--- OUTSIDE RECORDS SUMMARY | 2021-12-17 15:39 | XMS_ITS | Encounter Summary ---
:1985 Author Organization [place] Address [address] [place] [address]. [place] [address] Care Team Providers Name Role Phone Gina Bautista PA-C Primary Care Provider [phone] Gina Bautista PA-C Unavailable [phone] Gina Bautista PA-C Unavailable [phone] Gina Bautista PA-C Unavailable [phone] Reason for Visit Reason Onset Date Comments Patient Request for Note/Letter 04/26/2015 Encounter Details Date Type Department Care Team Description 04/26/2015 Telephone [facility] Gina Bautista Request for Clinic Jigna Vance PA-C Note/Letter [address] [address] [place] [address] [phone] Social History Tobacco Use Types Packs/Day Years Used Date Smoking Tobacco: Never Smokeless Tobacco: Never Alcohol Use Standard Drinks/Week Comments Yes 0 (1 standard drink = 0.6 oz pure alcoho l) Sex Assigned at Date Recorded Not on file documented as of this encounter Miscellaneous Notes Telephone Encounter - Gina Bautista PA-C - 04/27/2015 8:14 AM COUNSELING DIRECTOR Note for patient provided for missed work, given to Marianne. Gina Bautista PA-C SELING DIRECTOR Telephone Encounter - Irma Bogsg RN - 04/26/2015 8:22 AM CST Patient [...] pcp in office Thursday. Irma Boggs RN SELING DIRECTOR documented in this encounter Plan of Treatment Upcoming Encounters Date Type Specialty Care Team Description 01/07/2022 Virtual Visit Endocrinology Natalya Jean MD [address] [facility] [address] [place], [place] [address] (Wo rk) documented as of this encounter Visit Diagnoses Not on filedocumented in this encounter Additional Health Concerns Assessment Noted Time PHQ-9 Depression Total Score: 16 04/26/2015 8:54 AM CS T documented as of this encounter Care Teams Lost Charge Card Clerk Relationship Specialty Start Date End Date Gina Bautista, PCP - General Physician Decker Operator 5 09/03/21 [place] [address] [place] [id number] Gina Bautista, PCP - Assigned PCP 01/12/15 05/11/18 [place] [address] [place] [id number] Gina Bautista, Physician Decker Operator 01/31/15 [place] [address] [place] [address] Gina Bautista, Assigned PCP 01/12/15 [place] [address] [place] [address] documented as of this encounter
--- OUTSIDE RECORDS SUMMARY | 2021-12-17 15:39 | XMS_ITS | Encounter Summary ---
:1985 Author Organization [place] Address [address] [place] [address]. [place] [address] Care Team Providers Name Role Phone Gina Bautista PA-C Primary Care Provider [phone] Oestrfrances, Gina Vance PA-C Unavailable [phone] Gina Bautista PA-C Unavailable [phone] Oestrfrances, Gina Vance PA-C Unavailable [phone] Reason for Visit Reason Comments IUD Encounter Details Date Type Department Care Team Description 01/27/2017 Office Visit [facility] Nadine Monreal Encou nter for IUD removal (Primary Dx); [facility] Encounter for preconception consultation [place] [address] [facility] [address] [place] [address] [facility] [address] [place], [place] (Work) [address] [phone] Social History Tobacco Use Types Packs/Day Years Used Date Smoking Tobacco: Never Smokeless Tobacco: Never Alcohol Use Standard Drinks/Week Comments Yes 0 (1 standard drink = 0.6 oz pure alcoho l) Sex Assigned at Date Recorded Not on file documented as of this encounter Last Filed Vital Signs Vital Sign Reading Time Taken Comments Blood Pressure 100/60 01/27/2017 1:05 PM MARKETING COMMUNICATIONS COORDINATOR Pulse - - Temperature - - Respiratory Rate - - Oxygen Saturation - - Inhaled Oxygen Concentration - - Weight 79.3 kg (174 lb 12.8 oz) 01/27/2017 1:05 PM MARKETING COMMUNICATIONS COORDINATOR Height - - Body Mass Index 28.21 [...] muscle every 30 days vitamin D (ERGOCALCIFEROL) 44487 UNIT capsule Take 1 capsule (50,000 Units) [...] with hematology as needed. Nadine Monreal MD [facility] ETING COMMUNICATIONS COORDINATOR documented in this encounter Nursing Notes Nataliia [...] 12.8 oz (79.3 kg). Medication Reconciliation: complete ETING COMMUNICATIONS COORDINATOR documented in this encounter Plan of Treatment Upcoming Encounters Date Type Specialty Care Team Description 01/07/2022 Virtual Visit Endocrinology Natalya Jean MD [address] [place] [address] (Wo rk) documented as of this encounter Procedures Procedure Name Priority Date/Time Associated Diagnosis Comme nts HC REMOVE INTRAUTERINE Routine 01/27/2017 1:33 PM Encounter fo r IUD DEVICE MARKETING COMMUNICATIONS COORDINATOR removal documented in this encounter Visit Diagnoses Diagnosis Encounter for IUD removal - Primary Encounter for removal of intrauterine co ntraceptive device Encounter for preconception consultation documented in this encounter Additional Health Concerns Assessment Noted Time PHQ-9 Depression Total Score: 7 12/19/2016 3:37 PM CDT documented as of this encounter Care Teams Physical Education Specialist Relationship Specialty Start Date End Date Gina Bautista PCP - General Physician Echocardiographer 5 09/03/21 PALiuC [address] [address] [place], [place] [address] Gina Bautista, PCP - Assigned PCP 01/12/15 05/11/18 PA-C [address] [place] [address] Gina Bautista, Physician Echocardiographer 01/31/15 [place] [address] [address] [place], [place] [address] Gina Bautista, Assigned PCP 01/12/15 PA-C 14753 M[place] DUVALL [address] documented as of this encounter
--- OUTSIDE RECORDS SUMMARY | 2021-12-17 15:39 | XMS_ITS | Encounter Summary ---
:1985 Author Organization [place] Address [address] [place] [address]. [place] [address] Care Team Providers Name Role Phone Unavailable Primary Care Provider Unavailable Encounter Details Date Type Department Care Team Description 05/23/2005 Historic Results INTERFACED REPORT [place]ksandra Carrizales [place] [address] [phone] (Wo rk) Social History Tobacco Use Types Packs/Day Years Used Date Smoking Tobacco: Never Assessed Sex Assigned at Date Recorded Not on file documented as of this encounter Plan of Treatment Upcoming Encounters Date Type Specialty Care Team Description 01/07/2022 Virtual Visit Endocrinology Natalya Jean MD [address] [place] [address] (Wo rk) documented as of this encounter Procedures Procedure Name Priority Date/Time Associated Comments Diagnosis WET PREPARATION STAT 05/23/2005 9:45 AM Result s for this OPTIMIZATION SPECIALIST procedure are i n the results section. NEISSERIA GONORRHOEAE STAT 05/23/2005 9:45 AM Results for this PCR OPTIMIZATION SPECIALIST procedure are i n the results section. CHLAMYDIA TRACHOMATIS STAT 05/23/2005 9:45 AM Results for this PCR OPTIMIZATION SPECIALIST procedure are i n the results section. HCG QUALITATIVE URINE STAT 05/23/2005 9:20 AM Results for this OPTIMIZATION SPECIALIST procedure are i n the results section. ROUTINE UA WITH STAT 05/23/2005 9:20 AM Result s for this MICROSCOPIC OPTIMIZATION SPECIALIST procedure are i n the results section. HEMOGRAM DIFFERENTIAL STAT 05/23/2005 7:35 AM Results for this AND PLATELET OPTIMIZATION SPECIALIST procedure are i n the results section. BASIC METABOLIC PANEL STAT 05/23/2005 7:35 AM Results for this OPTIMIZATION SPECIALIST procedure are i n the results section. documented in this encounter Results Chlamydia trachomatis PCR (05/23/2005 9:45 AM OPTIMIZATION SPECIALIST) Component Value Ref Test Analysis Performed At [facility] Range Method Time Signature Specimen Cervical MISYS Description Chlamydia Negative for C. MISYS Trachomatis PCR trachomatis rRNA by human performance technologist mediated amplification. Comment: A negative result by human performance technologist medi ated amplification does not preclude the presence of C. trachomatis infection be cause results are dependent on proper and adequate collection, absence of inh ibitors, and sufficient rRNA to be detected. Specimen Anatomical Collection Method Collection Time Receive d Time (Source) Location / / Volume Laterality 05/23/2005 9:45 AM 6 OPTIMIZATION SPECIALIST 10:02 AM OPTIMIZATION SPECIALIST [facility] - MICRO GENERAL ORDERABL ES Performing Organization Address [facility] Code Phon e Number MISYS Neisseria gonorrhoeae PCR (05/23/2005 9:45 AM OPTIMIZATION SPECIALIST) [facility] Method Time Signature Specimen Cervical MISYS Descrip N Gonorrhea Negative for N. MISYS PCR gonorrhoeae rRNA by human performance technologist mediated amplification. Comment: A negative result by human performance technologist medi ated amplification does not preclude the presence of N. gonorrhoeae infection be cause results are dependent on proper and adequate collection, absence of inh ibitors, and sufficient rRNA to be detected. Specimen Anatomical Collection Method Collection Time Receive d Time (Source) Location / / Volume Laterality 05/23/2005 9:45 AM 6 OPTIMIZATION SPECIALIST 10:02 AM OPTIMIZATION SPECIALIST Pediatric[facility] - MICRO GENERAL ORDERABL ES Performing Organization Address City/State/ZIP Code Phon e Number MISYS Wet prep (05/23/2005 9:45 AM OPTIMIZATION SPECIALIST) [facility] Method Time Signature Specimen Vagina MISYS Description Micro Report FINAL MISYS Status [id number] Wet Prep Few PMN'S MISYS seen Comment: No Trichomonas seen No yeast seen No clue cells seen Specimen Anatomical Collection Method Collection Time Receive d Time (Source) Location / / Volume Laterality 05/23/2005 9:45 AM 6 OPTIMIZATION SPECIALIST 10:02 AM OPTIMIZATION SPECIALIST Pediatric[facility] - MICRO GENERAL ORDERABL ES Performing Organization Address City/State/[facility] Phon e Number MISYS (ABNORMAL) Routine UA with microscopic (05/23/2005 9:20 AM OPTIMIZATION SPECIALIST) [facility] Method Time Signature Source Midstream MISYS Urine Color Urine Yellow MISYS Appearance Urine Clear MISYS Glucose Urine Negative NEG mg/dL MISYS Bilirubin Urine Negative NEG MISYS Ketones Urine Negative NEG mg/dL MISYS Specific [place] 1.016 1.003 - MISYS Urine 1.035 Blood [...] Volume Laterality 05/23/2005 9:20 AM 6 7:48 OPTIMIZATION SPECIALIST AM OPTIMIZATION SPECIALIST [facility] - URINE ORDERABLES Performing Organization Address [facility] Phon e Number MISYS HCG qualitative urine (05/23/2005 9:20 AM OPTIMIZATION SPECIALIST) athologist Signature HCG Qual Urine Negative NEG MISYS Specimen Anatomical Collection Method Collection Time Receive d Time (Source) Location / / Volume Laterality 05/23/2005 9:20 AM 6 7:48 OPTIMIZATION SPECIALIST AM OPTIMIZATION SPECIALIST [facility] - URINE ORDERABLES Performing Organization Address [facility] Phon e Number MISYS (ABNORMAL) Hemogram differential and platelet (05/23/2005 7:35 AM OPTIMIZATION SPECIALIST) [facility] Method Time Signature MCV 84 [phone] [...] Volume Laterality 05/23/2005 7:35 AM 6 7:48 OPTIMIZATION SPECIALIST AM OPTIMIZATION SPECIALIST [facility] - BLOOD ORDERABLES Performing Organization Address City/State/ZIP Code Phon e Number MISYS Basic metabolic panel (05/23/2005 7:35 AM OPTIMIZATION SPECIALIST) P athologist Signature Sodium [phone] - [...] Volume Laterality 05/23/2005 7:35 AM 6 7:48 OPTIMIZATION SPECIALIST AM OPTIMIZATION SPECIALIST [facility] - BLOOD ORDERABLES Performing Organization Address City/State/ZIP Code Phon e Number MISYS documented in this encounter Visit Diagnoses Not on filedocumented in this encounter
--- OUTSIDE RECORDS SUMMARY | 2021-12-17 15:39 | XMS_ITS | Encounter Summary ---
:1985 Author Organization [facility] Address [address] [place] [address]. [place] [address] Care Team Providers Name Role Phone Unavailable Primary Care Provider Unavailable Encounter Details Date Type Department Care Team Description 07/21/2004 Historic Reverberatory Furnace Supervisor INTERFACED REPORT Ilana Levy Social History Tobacco Use Types Packs/Day Years Used Date Smoking Tobacco: Never Assessed Sex Assigned at Date Recorded Not on file documented as of this encounter Progress Notes Interface, Reverberatory Furnace Supervisor - 02/12/2011 3:18 AM COMMUNITY ASSOCIATION MANAGER : 89 CHIEF COMPLAINT: Ankle and knee [...] EPIDEMIOLOGIC HISTORY: Patient attends school. They visited [place] in May 2004. PHYSICAL EXAMINATION: VITAL SIGNS: [...] appointment. [id number] KELLIE LEVY MD MT: Document: [id number] CC: KELLIE LEVY MD [place], [place] Name: MR#: CARLEY CHAN -25 EMERGENCY ROOM ENCOUNTER Page 2 of 2 LCN: MARY JANE DSC: 07/21/2004 [place], [place] Name: MR#: CARLEY CHAN -23 : Admit Date: Account #: 1985 07/21/2004 [id number] Doctor: KELLIE LEVY MD EMERGENCY ROOM ENCOUNTER Page 1 of 2 UNITY ASSOCIATION MANAGER documented in this encounter Plan of Treatment Upcoming Encounters Date Type Specialty Care Team Description 01/07/2022 Virtual Visit Endocrinology Natalya Jean MD [address] [place] [address] (Wo rk) documented as of this encounter Visit Diagnoses Not on filedocumented in this encounter
--- OUTSIDE RECORDS SUMMARY | 2021-12-17 15:39 | XMS_ITS | Encounter Summary ---
:1985 Author Organization [facility] Address [address] [place] [address]. [place] [address] Care Team Providers Name Role Phone Gina Bautista PA-C Primary Care Provider [phone] Gina Bautista PA-C Unavailable [phone] Gina Bautista PA-C Unavailable [phone] Gina Bautista PA-C Unavailable [phone] Reason for Visit Reason Onset Date Comments Refill Request 04/14/2017 Encounter Details Date Type Department Care Team Description 04/14/[address] [facility] Lyle Bautista Refill Request Lucia Vance PA-C [address] [address] [place] [phone] [place] [phone] (Wo rk) Social History Tobacco Use Types [...] work in 6-8 weeks. Panchito Gandhi CMA (AAHI) D CONTACT PERSON Telephone Encounter - Gina Bautista PA-C - 04/14/2017 12:48 PM FIELD CONTACT PERSON Lab orders futured and rx sent to pharmacy. Please notify patient should schedule lab only visit in 6-8 weeks, will check TSH and Vit D. 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 Vitamin D deficiency Unspecified vitamin D deficiency documented in this encounter Additional Health Concerns Assessment Noted Time PHQ-9 Depression Total Score: 9 02/19/2017 2:07 PM FIELD CONTACT PERSON documented as of this encounter Care Teams Desk Maker Relationship Specialty Start Date End Date Gina Bautista, PCP - General Physician Dot Etcher 5 09/03/21 PA-C [address] [place] [phone] Gina Bautista, PCP - Assigned PCP 01/12/15 05/11/18 PA-C [address] [place] [address] Gina Bautista, Physician Dot Etcher 01/31/15 PALiuC [address] [place] [address] Gina Bautista, Assigned PCP 01/12/15 PA-C [address] [id number] documented as of this encounter
--- OUTSIDE RECORDS SUMMARY | 2021-12-17 15:39 | XMS_ITS | Encounter Summary ---
:1985 Author Organization [facility] Address [address] [place] [address] Care Team Providers Name Role Phone Gina Bautista PA-C Primary Care Provider [phone] Gina Bautista PA-C Unavailable [phone] Gina Bautista PA-C Unavailable [phone] Gina Bautista PA-C Unavailable [phone] Reason for Visit Reason Comments URI Encounter Details Date Type Department Care Team Description 06/25/2015 Office Visit [facility] Serum, Ro Viral URI (Primary Dx); Yony Yarbrough MD Acute pharyngitis, unspecified etiology [address] [facility] [place] [address] [place] [phone] [address] [place], [place] [address] Social History Tobacco Use [...] list, Allergies, and Medical/Social/Surgical histories reviewed in EPIC andupdated as appropriate. OBJECTIVE: BP 96/56 mmHg [...] Follow up with Provider - alexis Salgado [facility] [place] documented in this encounter [...] [address] [place] [address] (Wo rk) documented as of this encounter [...] Component Value Ref Test Analysis Performed At [facility] Range Method Time Signature Specimen Throat [facility] [place] Culture Micro No Beta [place] Streptococcus CLINICS isolated [place] Micro Report FINAL 06/27/2015 [facility] [place] Specimen Anatomical Collection Method Collection Time Receive d Time (Source) Location / / Volume Laterality 06/25/2015 5:20 PM 6 5:25 CDT PM CDT Ro Salgado MD LAB - MICRO GENERAL ORDERABL ES Performing Organization Address City/State/ZIP Code Phon e Number [facility] [place] [address] [place] [address] Strep, Rapid Screen (06/25/2015 5:20 PM CDT) Component Value Ref Test Analysis Performed At [facility] [employer] Range Method Time Signature Specimen Throat [facility] [place] Rapid Strep A NEGATIVE: No Group A strepto coccal antigen detected by immunoassay, await [place] Screen culture report. CLINICS [place] Micro Report FINAL 06/25/2015 [facility] [place] Specimen Anatomical Collection Method Collection Time Receive d Time (Source) Location / / Volume Laterality Specimen from 06/25/2015 5:20 PM 06/25/19 16 5:25 throat CDT PM CDT (specimen) Ro Salgado MD LAB - MICRO GENERAL ORDERABL ES Performing Organization Address City/State/ZIP Code Phon e Number [facility] [place] [address] [facility] [place] [address] documented in this encounter Visit Diagnoses Diagnosis Viral URI - Primary Acute upper respiratory infections of un specified site Acute pharyngitis, unspecified etiology documented in this encounter Additional Health Concerns Assessment Noted Time PHQ-9 Depression Total Score: 16 04/26/2015 8:54 AM CS T documented as of this encounter Care Teams Air Hole Driller Relationship Specialty Start Date End Date Gina Bautista, PCP - General Physician Building Cleaning Supervisor 5 09/03/21 PA-C [address] [place] [address] Gina Bautista, PCP - Assigned PCP 01/12/15 05/11/18 PA-C [address] [place] [address] Gina Bautista, Physician Building Cleaning Supervisor 01/31/15 PA-C [address] [place] [address] Gina Bautista, Assigned PCP 01/12/15 PA-C [address] [place] [address] documented as of this encounter
--- OUTSIDE RECORDS SUMMARY | 2021-12-17 15:39 | XMS_ITS | Encounter Summary ---
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 TSH WITH FREE T4 Routine 04/10/2017 2:35 PM Hypothyroidism due to Results for this REFLEX [facility] acquired atrophy of procedur e are in thyroid the results section. T4 FREE Routine 04/10/2017 2:35 PM Vitamin D deficiency R esults for this [facility] procedure are i n the results section. documented in this encounter Results T4 free (04/10/2017 2:35 PM [facility]ERR[facility] CUTTER) athologist Signature T4 Free 0.94 0.76 - 1.46 04/12/2017 [facility] ng/dL 1:41 PM [facility] Specimen Anatomical Collection Method Collection Time Receive d Time (Source) Location / / Volume Laterality 04/10/2017 2:35 PM 8 2:36 [facility] PM [facility] Gina Bautista PA-C LAB - BLOOD ORDERABLES Performing Organization Address City/[facility]/ZIP Code Phon e Number [facility] [address] [place] [phone] (ABNORMAL) TSH with free T4 reflex FUTURE 2mo (04/10/2017 2:35 PM [facility]ERR[facility] CUTTER) athologist Signature TSH 10.56 (H) 0.40 - 04/12/2017 [facility] 4.00 mU/L 1:28 PM [facility] Specimen Anatomical Collection Method Collection Time Receive d Time (Source) Location / / Volume Laterality Blood specimen 04/10/2017 2:35 PM 018 2:36 (specimen) [facility] PM [facility] Gina Bautista PA-C LAB - BLOOD ORDERABLES Performing Organization Address City/State/ZIP Code Phon e Number [facility] [address] [place] [address] (ABNORMAL) Vitamin D Deficiency (04/10/2017 2:35 PM [facility] C[facility]TER) athologist Signature Vitamin D 13 (L) 20 - 75 04/11/2017 [facility] Deficiency ug/L 11:46 AM [facility] Comment: Season, race, dietary intake, and treatm ent affect the concentration of 93-unlzynz-Anjmeai D. 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 documented in this encounter Additional Health Concerns Assessment Noted Time PHQ-9 Depression Total Score: 9 02/19/2017 2:07 PM [facility] C[facility]TER documented as of this encounter Care Teams Classifying Machine Operator Relationship Specialty Start Date End Date Gina Bautista, PCP - General Physician Die Cutter 5 09/03/21 PA-C 46760 [address] [id number] Gina Bautista, PCP - Assigned PCP 01/12/15 05/11/18 PA-C [address]8599 [address] [address] Gina Bautista, Physician Die Cutter 01/31/15 PA-C [address]2989 [address] [id number] Gina Bautista, Assigned PCP 01/12/15 PA-C 04373 [address] [id number] documented as of this encounter
--- OUTSIDE RECORDS SUMMARY | 2021-12-17 15:39 | XMS_ITS | Encounter Summary ---
:1985 Author Organization [facility] Address [address] [place] [address]. [place] [address] Care Team Providers Name Role Phone Gina Bautista PA-C Primary Care Provider [phone] Gina Bautista PA-C Unavailable [phone] Gina Bautista PA-C Unavailable [phone] Gina Bautista PA-C Unavailable [phone] Reason for Visit Reason Comments Medication Refill Encounter Details Date Type Department Care Team Description 03/22/[address] [facility] Lyle Bautista Medication Refill Lucia Vance PA-C [address] [address] [place] [address] [place] [address] [phone] (Wo rk) Social History Tobacco Use Types Packs/Day Years Used Date Smoking Tobacco: Never Smokeless Tobacco: Never Alcohol Use Standard Drinks/Week Comments Yes 0 (1 standard drink = 0.6 oz pure alcoho l) Sex Assigned at Date Recorded Not on file documented as of this encounter Miscellaneous Notes Telephone Encounter - Violette Archer - 04/06/2017 3:23 PM CST Appointment scheduled ICAL THERAPIST Telephone Encounter - Panchito Gandhi - 04/03/2017 10:43 AM CST 2nd attempt, LM to call back. Needs non-fasting lab only apt. Panchito Gandhi CMA (AANM) ICAL THERAPIST Telephone Encounter - Donya Damon - 03/26/2017 11:50 AM CST 1st attempt LVM to call back to make an appt ICAL THERAPIST Telephone Encounter - Yvette Negrete RN - 03/25/2017 12:18 PM PHYSICAL THERAPIST Medication is being filled for 1 time refill only due to: Patient needs labs recheck on Vitamin D level. Call to schedule lab only appointment, future order previously placed. Kim Negrete RN ICAL THERAPIST Telephone Encounter - Kaye Gr - 03/23/2017 9:36 AM CST vitamin D (ERGOCALCIFEROL) [address]23 UNIT capsule Last Written Prescription Date: 12/22/2016 Last Fill Quantity: 12, # refills: 0 Last Office Visit: 02/22/2017 Future Office visit: Next 5 appointments (look out 90 days) Apr 24, 2017 2:00 PM PHYSICAL THERAPIST Return Visit with Lisa Lopez LP [facility] [address] [facility] [address] May 08, 2017 2:00 PM PHYSICAL THERAPIST Return Visit with Lisa Lopez LP [facility]) [address] [facility] [address] May 22, 2017 2:00 PM CDT Return Visit with Lisa Lopez LP [facility] [address] [facility] [phone] Routing refill request to provider for review/approval because: Drug not on the [facility], [facility] or Health refill protocol or controlled substance ICAL THERAPIST documented in this encounter Plan of Treatment Upcoming Encounters Date Type Specialty Care Team Description 01/07/2022 Virtual Visit Endocrinology Natalya Jean MD [address] [place] [address] (Wo rk) documented as of this encounter Visit Diagnoses Diagnosis Vitamin D deficiency Unspecified vitamin D deficiency documented in this encounter Additional Health Concerns Assessment Noted Time PHQ-9 Depression Total Score: 9 02/19/2017 2:07 PM PHYSICAL THERAPIST documented as of this encounter Care Teams Procedure Analyst Relationship Specialty Start Date End Date Gina Bautista, PCP - General Physician Fact Checker 5 09/03/21 PA-C [address] [place] [address] Gina Bautista, PCP - Assigned PCP 01/12/15 05/11/18 PA-C [address] [place] [address] Gina Bautista, Physician Fact Checker 01/31/15 PA-C [address] [place] [address] Gina Bautista, Assigned PCP 01/12/15 PA-C 325[address] [place] [address] documented as of this encounter
--- OUTSIDE RECORDS SUMMARY | 2021-12-17 15:39 | XMS_ITS | Encounter Summary ---
:1985 Author Organization [facility] Address [address] [place] [address] Care Team Providers Name Role Phone Unavailable Primary Care Provider Unavailable Encounter Details Date Type Department Care Team Description 05/23/2005 Emergency room [facility] [address] [address] [place] [address] (Wo rk) Social History Tobacco Use Types Packs/Day Years Used Date Smoking Tobacco: Never Assessed Sex Assigned at Date Recorded Not on file documented as of this encounter Progress Notes Interface, Social Media Director - 05/24/2005 10:20 PM FINE ARTS MODEL FINAL CHIEF COMPLAINT: Left lower quadrant pain. [...] home. Tylenol No. 3 for discomfort, Motrin [id number]. Follow up with primary care physician in 3-5 days, clear liquids x8 hours and advance diet as tolerated. Return to emergency department if symptoms get worse. Electronically signed on 05/24/2005 22:19 by GLORY KRAFT MD MT: [id number] Name: CARLEY CHAN MRN: -23 Account: [id number] : 1985 Visit Date: 05/23/2005 Document: [id number] cc: [facility] ART[employer] MODEL Interface, Social Media Director - 05/24/2005 3:26 PM FINE ARTS MODEL PRELIMINARY CHIEF COMPLAINT: Left lower quadrant pain. [...] home. Tylenol No. 3 for discomfort, Motrin [id number]. Follow up with primary care physician in 3-5 days, clear liquids x8 hours and advance diet as tolerated. Return to emergency department if symptoms get worse. GLORY KRAFT MD MT: [id number] Name: CARLEY CHAN Account: [id number] : 1985 Visit Date: 05/23/2005 Document: [id number] cc: [facility] [employer] MODEL documented in this encounter Plan of Treatment Upcoming Encounters Date Type Specialty Care Team Description 01/07/2022 Virtual Visit Endocrinology Natalya Jean MD [address] [place] [address] (Wo rk) documented as of this encounter Visit Diagnoses Not on filedocumented in this encounter
--- OUTSIDE RECORDS SUMMARY | 2021-12-17 15:39 | XMS_ITS | Encounter Summary ---
:1985 Author Organization [facility] Address [address] [place] [address] Care Team Providers Name Role Phone Paul Palumbo PA-C Primary Care Provider [phone] Paul Palumbo PA-C Unavailable [phone] Paul Palumbo PA-C Unavailable [phone] Paul Palumbo PA-C Unavailable [phone] Reason for Visit Reason Comments Physical Annual Physical with PAP Encounter Details Date Type Department Care Team Description 04/25[facility]2015 [facility] physical exam with abnormal findings (Primary Dx); Clinic Jigna Vance PA-C Overweight; [address] [address] [address] [place] [address] [place] 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; [address] Adjustment disorder with dep ressed mood; [place] [address] Iron deficiency anemia, unspecified iron deficiency [id number] [...] Comments Blood Pressure 126/62 04/25/2015 1:02 PM METALLURGICAL ANALYST Pulse 80 04/25/2015 1:02 PM METALLURGICAL ANALYST Temperature 36.6 ??C (97.9 ??F) 04/25/2015 1:02 PM METALLURGICAL ANALYST Respiratory Rate 16 04/25/2015 1:02 PM METALLURGICAL ANALYST Oxygen Saturation 100% 04/25/2015 1:02 PM METALLURGICAL ANALYST Inhaled Oxygen Concentration - - Weight 82.1 kg (181 lb) 04/25/2015 1:02 PM METALLURGICAL ANALYST Height 167 cm (5' 5.75) 04/25/2015 1:02 PM METALLURGICAL ANALYST Body Mass Index 29.44 04/25/2015 1:02 PM METALLURGICAL ANALYST documented in this encounter Patient Instructions Patient [...] months for an exam and cleaning. ?? LLURGICAL ANALYST documented in this encounter Progress Notes Paul Palumbo PA-C - 04/25/2015 8:24 AM CST [...] Maxwell and colleagues,with an educational kenia from [employer].) 04/25/2015 01/31/2015 Q1: Little interest or pleasure [...] LDL, TRIG, CHOLHDLRATIO, NHDL in the last 53909 hours. Reviewed orders with patient. Reviewed health maintenance and updated orders accordingly - Yes Mammo Decision Support: Mammogram not appropriate for this patient based on age. Last Mammo:No results found. History of abnormal Pap smear: NO - age 21-29 PAP every 3 years recommended All Histories reviewed and updated in [facility]. 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 Patient Active [...] Preventive Guidelines Dietary Guidelines for Americans, 2010 [employer] Paul Palumbo PA-C [facility]GICAL ANALYST documented in this encounter Nursing Notes Monica [...] phone number for results from this visit [phone] OK to leave message Marianne Tony CMA (AAMA) 04/25/2015 1:03 PM LLURGICAL ANALYST documented in this encounter Miscellaneous Notes Addendum Note - Paul Palumbo PA-C - 04/27/2015 8:25 AM METALLURGICAL ANALYST Addended by: PAUL PALUMBO on: 04/27/2015 08:25 AM Modules accepted: Orders LLURGICAL ANALYST documented in this encounter Plan of Treatment Upcoming Encounters Date Type Specialty Care Team Description 01/07/2022 Virtual Visit Endocrinology Natalya Jean MD [address] [place] [address] (Wo rk) documented as of this encounter Procedures Procedure Name Priority Date/Time Associated Comments Diagnosis UA MACROSCOPIC WITH Routine 04/25/2015 12:44 Encounter for Res ults for this REFLEX TO MICROSCOPIC PM METALLURGICAL ANALYST routine adult proce ada are in AND CULTURE physical exam with the resul ts abnormal findings section. documented in this encounter Results (ABNORMAL) Iron and iron binding capacity (04/27/2015 11:50 AM METALLURGICAL ANALYST) Patholo gist Method Time Signature Iron 13 (L) 35 - 180 [place] ug/dL [facility] Iron Binding 619 (H) 240 - 430 [place] Cap ug/dL [facility] Iron Saturation 2 (L) 15 - 46 % [place] Index [facility] Specimen Anatomical Collection Method Collection Time Receive d Time (Source) Location / / Volume Laterality Blood specimen 04/27/2015 11:50 6 (specimen) AM METALLURGICAL ANALYST 11:51 AM METALLURGICAL ANALYST Paul Palumbo PA-C LAB - BLOOD ORDERABLES Performing Organization Address City/[facility]/ZIP Code Phon e Number [facility] [address] [place] [address] (ABNORMAL) Ferritin (04/27/2015 11:50 AM METALLURGICAL ANALYST) P athologist Signature Ferritin 2 (L) 12 - 150 [facility] ng/mL [facility] Specimen Anatomical Collection Method Collection Time Receive d Time (Source) Location / / Volume Laterality Blood specimen 04/27/2015 11:50 6 (specimen) AM METALLURGICAL ANALYST 11:51 AM METALLURGICAL ANALYST Paul Palumbo PA-C LAB - BLOOD ORDERABLES Performing Organization Address City/[facility]/ZIP Code Phon e Number [facility] [address] [place] [address] (ABNORMAL) TSH with free T4 reflex (04/26/2015 8:26 AM METALLURGICAL ANALYST) P athologist Signature TSH 7.92 (H) 0.40 - [facility] 4.00 mU/L [facility] Specimen Anatomical Collection Method Collection Time Receive d Time (Source) Location / / Volume Laterality Blood specimen 04/26/2015 8:26 AM 016 8:27 (specimen) METALLURGICAL ANALYST AM METALLURGICAL ANALYST Paul Palumbo PA-C LAB - BLOOD ORDERABLES Performing Organization Address City/State/ZIP Code Phon e Number [facility] [address] [place] [address] (ABNORMAL) Comprehensive metabolic panel (04/26/2015 8:26 AM METALLURGICAL ANALYST) [facility] Method Time Signature Sodium 140 133 - 144 [place] mmol/L [facility] Potassium 4.1 3.4 - 5.3 [place] mmol/L [facility] Chloride 109 94 - 109 [place] mmol/L [facility] Carbon Dioxide 23 20 - 32 [place] mmol/L [facility] Anion Gap 8 3 - 14 [place] mmol/L [facility] Glucose 87 70 - 99 [place] mg/dL [facility] Urea Nitrogen 10 7 - 30 [place] mg/dL [facility] Creatinine 0.74 0.52 - [facility] 1.04 [facility]INICS mg/dL [facility] GFR Estimate >90 >60 [place] Non GFR Calc mL/min/1. CLINICS 7m2 [facility] GFR Estimate If >90 >60 [place] Black GFR Calc mL/min/1. CLIN ICS 7m2 [facility] Calcium 8.3 (L) 8.5 - [facility] 10.1 [facility]INICS mg/dL [facility] Bilirubin Total 0.5 0.2 - 1.3 [place] mg/dL [facility] Albumin 3.8 3.4 - 5.0 [facility] g/dL [facility] Protein Total 7.4 6.8 - 8.8 [facility] g/dL [facility] Alkaline 71 40 - 150 [place] Phosphatase U/L [facility] ALT 19 0 - 50 [facility] U/L [facility] AST 14 0 - 45 [facility] U/L [facility] Specimen Anatomical Collection Method Collection Time Receive d Time (Source) Location / / Volume Laterality Blood specimen 04/26/2015 8:26 AM 016 8:27 (specimen) METALLURGICAL ANALYST AM METALLURGICAL ANALYST Paul Palumbo PA-C LAB - BLOOD ORDERABLES Performing Organization Address City/[facility]/ZIP [facility] Phon e Number [facility] [address] [place] [address] (ABNORMAL) CBC with platelets (04/26/2015 8:26 AM METALLURGICAL ANALYST) athologist Signature WBC 4.7 4.0 - 11.0 [place] 10e9/L [facility] RBC Count 4.41 3.8 - 5.2 [place] 10e12/L [facility] Hemoglobin 8.4 (L) 11.7 - 15.7 [place] g/dL [facility] Comment: Results confirmed by repeat mónica t Hematocrit 29.1 (L) 35.0 - 47.0 % [facility] S [place] MCV 66 (L) 78 - 100 fl [facility] MCH 19.0 (L) 26.5 - 33.0 pg [facility] S [place] MCHC 28.9 (L) 31.5 - 36.5 g/dL [place] [facility] Comment: Results confirmed by repeat mónica t RDW 16.7 (H) 10.0 - 15.0 % [facility] Platelet Count 321 150 - 450 10e9/L [facility] Specimen Anatomical Collection Method Collection Time Receive d Time (Source) Location / / Volume Laterality Blood specimen 04/26/2015 8:26 AM 016 8:27 (specimen) METALLURGICAL ANALYST AM METALLURGICAL ANALYST Paul Palumbo PA-C LAB - BLOOD ORDERABLES Performing Organization Address City/[facility]/ZIP Code Phon e Number [facility] [address] [place], [place] [address] LIPID REFLEX TO DIRECT LDL PANEL (04/26/2015 8:26 AM METALLURGICAL ANALYST) athologist Signature Cholesterol 109 <200 mg/dL [facility] Triglycerides 70 <150 mg/dL [facility] S [facility] Comment: Fasting specimen HDL Cholesterol 54 >49 mg/dL [place] CLINI CS [facility] LDL Cholesterol Calculated 41 <100 mg/dL FA [facility] Comment: Desirable: <100 mg/dl Non HDL Cholesterol 55 <130 mg/dL [facility] Specimen Anatomical Collection Method Collection Time Receive d Time (Source) Location / / Volume Laterality Blood specimen 04/26/2015 8:26 AM 016 8:27 (specimen) METALLURGICAL ANALYST AM METALLURGICAL ANALYST Paul Palumbo PA-C LAB - BLOOD ORDERABLES Performing Organization Address City/[facility]/ZIP Code Phon e Number [facility] [address] [place] [address] UA reflex to Microscopic and Culture (04/25/2015 12:44 PM METALLURGICAL ANALYST) [facility] gist Method Time Signature Color Urine Yellow [facility] Appearance Urine Clear [place] [facility] Glucose Urine Negative NEG mg/dL [place] [facility] Bilirubin Urine Negative NEG [place] [facility] Ketones Urine Negative NEG mg/dL [facility] Specific [place] 1.025 1.003 - [place] Urine 1.035 [facility] Blood Urine Negative NEG [place] [facility] pH Urine 5.5 5.0 - 7.0 [place] pH [facility] Protein Albumin Negative NEG mg/dL [place] Urine [facility] Urobilinogen 0.2 0.2 - 1.0 [place] Urine EU/dL [facility] Nitrite Urine Negative NEG [place] [facility] Leukocyte Negative NEG [place] Esterase Urine [facility] Source Midstream [place] Urine [facility] Specimen Anatomical Collection Method Collection Time Receive d Time (Source) Location / / Volume Laterality Urine specimen 04/25/2015 12:44 6 (specimen) PM METALLURGICAL ANALYST 12:45 PM METALLURGICAL ANALYST Paul Palumbo PA-C LAB - URINE ORDERABLES Performing Organization Address City/[facility]/ZIP Code Phon e Number [facility] [address] [place], [place] [address] documented in this encounter [...] documented as of this encounter Care Teams Pin Drafter Operator Relationship Specialty Start Date End Date Paul Palumbo, PCP - General Physician Miller Supervisor 5 09/03/21 [place] [address] [address] [id number] Paul Palumbo, PCP - Assigned PCP 01/12/15 05/11/18 [place] [address] [address], [place] [address] Paul Palumbo, Physician Miller Supervisor 01/31/15 [place] [address] [address] [address] Paul Palumbo, Assigned PCP 01/12/15 [place] [address] [address] [address] documented as of this encounter
--- OUTSIDE RECORDS SUMMARY | 2021-12-17 15:39 | XMS_ITS | Encounter Summary ---
:1985 Author Organization [facility] Address [address] [place] [address]. [place] [address] Care Team Providers Name Role Phone Gina Bautista PA-C Primary Care Provider [phone] Gina Bautista PA-C Unavailable [phone] Gina Bautista PA-C Unavailable [phone] Gina Bautista PA-C Unavailable [phone] Reason for Visit Mental Health Outpatient (Routine) - Closed Specialty Diagnoses / Procedures Referred By Contact Refer red To Contact Gina Bautista [facility] [place] [facility] [id number] [place] [id number] [place] [address] [place] [address] Phone: Fax: Referral ID Status Reason Start Date Expiration Date Visits Requ ested Visits Authorized [facility] Closed 01/14/2017 01/14/2018 1 52 Encounter Details Date Type Department Care Team Description 02/06/2017 Office Visit [facility] Lisa Lopez LP Anxiety (Primary Dx) Services [place] [id number] [facility] [address] [place] [phone] Social History Tobacco Use Types Packs/Day Years Used Date Smoking Tobacco: Never Smokeless Tobacco: Never Alcohol Use Standard Drinks/Week Comments Yes 0 (1 standard drink = 0.6 oz pure alcoho l) Sex Assigned at Date Recorded Not on file documented as of this encounter Progress Notes Lisa Lopez LP - 02/06/2017 2:23 PM CST Images from the original note were not included. Adult Intake Structured Interview Standard Diagnostic Assessment CLIENT'S NAME: Carley Hernandez : 1985 ACCT. NUMBER: [id number] DATE OF SERVICE: 02/06/17 Identifying Information: Client is a 31 year old, , female. Client was referred for counseling by self. 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 Client attended the session alone. Client's [...] History: Client reported she grew up in [place], [place]. They were the second born of [...] concentration. There are no ethnic, cultural or church factors that may be relevant for therapy. Client identified her preferred language to be Welsh. Client reported she does not need the assistance of an grease cup filler or other support involved in therapy. Modifications [...] an exam with PCP. The clienthas a [facility] Primary Care Provider, who is named Gina [...] muscle every30 days ??? vitamin D (ERGOCALCIFEROL) 24765 UNIT capsule Take 1 capsule (50,000 Units) [...] (Sustained by DSM5 Criteria Listed Above) Diagnoses: JUNA MIGUEL Psychosocial & Contextual Factors: difficult co-parenting [...] the following activities. For each question, please [place] only one response. S1 Standing for long [...] Plan: The client reports no currently identified church, ethnic or cultural issues relevant to therapy. Wire Stretcher services are not indicated. Modifications to assist [...] NA. Client will have access to their [facility]' medical record. Lisa Lopez LP February 06, 2017 SING CLERK documented in this encounter Plan of Treatment Upcoming Encounters Date Type Specialty Care Team Description 01/07/2022 Virtual Visit Endocrinology Natalya Jean MD [address] [facility] [address] [place] [address] (Wo rk) documented as of this encounter Visit Diagnoses Diagnosis Anxiety - Primary Anxiety state, unspecified documented in this encounter Additional Health Concerns Assessment Noted Time PHQ-9 Depression Total Score: 7 12/19/2016 3:37 PM CDT documented as of this encounter Care Teams Animal Care Supervisor Relationship Specialty Start Date End Date Gina Bautista, PCP - General Physician Director Of Sports Medicine 5 09/03/21 [place] [address] [place] [address] Gina Bautista, PCP - Assigned PCP 01/12/15 05/11/18 PA-C [id number] [address], [place] [phone] Gina Bautista, Physician Director Of Sports Medicine 01/31/15 PA-C [id number] [place] [address] Gina Bautista, Assigned PCP 01/12/15 PA-C [address] [place] [address] documented as of this encounter
--- OUTSIDE RECORDS SUMMARY | 2021-12-17 15:39 | XMS_ITS | Encounter Summary ---
:1985 Author Organization [facility] Address [address] [place] [address] Care Team Providers Name Role Phone Gina Bautista PA-C Primary Care Provider [phone] Gina Bautista PA-C Unavailable [phone] Gina Bautista PA-C Unavailable [phone] Gina Bautista PA-C Unavailable [phone] Encounter Details Date Type Department Care Team Description 04/26/2015 Orders Only [facility] Enc ounter for routine adult physical exam with abnormal findings; [facility] Overweight; [address] Hypothyroidism [place] to [place] [address] Social History Tobacco Use Types Packs/Day [...] [address] [place] [address] (Wo rk) documented as of this encounter Procedures Procedure Name Priority Date/Time Associated Comments Diagnosis TSH WITH FREE T4 Routine 04/26/2015 8:26 AM Encounter for Resu lts for this REFLEX MARINE ENGINE DRIVER routine adult procedure are in physical exam with the resul ts abnormal finding s section. Hypothyroidism due to acquired atrophy of thyroid T4 FREE Routine 04/26/2015 8:26 AM Encounter for Results for this MARINE ENGINE DRIVER routine adult procedure are in physical exam with the resul ts abnormal findings section. LIPID REFLEX TO DIRECT Routine 04/26/2015 8:26 AM Encounter fo r Results for this LDL PANEL MARINE ENGINE DRIVER routine adult procedure are in physical exam with the resul ts abnormal findings section. COMPREHENSIVE Routine 04/26/2015 8:26 AM Encounter for Results for this METABOLIC PANEL MARINE ENGINE DRIVER routine adult procedure a re in physical exam with the resul ts abnormal finding s section. Overweight CBC WITH PLATELETS Routine 04/26/2015 8:26 AM Encounter for Re sults for this MARINE ENGINE DRIVER routine adult procedure are in physical exam with the resul ts abnormal findings section. documented in this encounter Results T4 free (04/26/2015 8:26 AM MARINE ENGINE DRIVER) athologist Signature T4 Free 0.98 0.76 - 1.46 [facility] ng/dL [facility] Specimen Anatomical Collection Method Collection Time Receive d Time (Source) Location / / Volume Laterality 04/26/2015 8:26 AM 6 8:27 MARINE ENGINE DRIVER AM MARINE ENGINE DRIVER Gina Bautista PA-C LAB - BLOOD ORDERABLES Performing Organization Address City/State/ZIP Code Phon e Number [facility] [address] [place] [address] (ABNORMAL) CBC with platelets (04/26/2015 8:26 AM MARINE ENGINE DRIVER) athologist Signature WBC 4.7 4.0 - 11.0 [place] 10e9/L [facility] RBC Count 4.41 3.8 - 5.2 [place] 10e12/L [facility] Hemoglobin 8.4 (L) 11.7 - 15.7 [place] g/dL [facility] Comment: Results confirmed by repeat mónica t Hematocrit 29.1 (L) 35.0 - 47.0 % [facility] S [place] MCV 66 (L) 78 - 100 fl [facility] R [place] MCH 19.0 (L) 26.5 - 33.0 pg [facility] S [place] MCHC 28.9 (L) 31.5 - 36.5 g/dL [facility] Comment: Results confirmed by repeat mónica t RDW 16.7 (H) 10.0 - 15.0 % [facility] Platelet Count 321 150 - 450 10e9/L [facility] Specimen Anatomical Collection Method Collection Time Receive d Time (Source) Location / / Volume Laterality Blood specimen 04/26/2015 8:26 AM 016 8:27 (specimen) MARINE ENGINE DRIVER AM MARINE ENGINE DRIVER Gina Bautista PA-C LAB - BLOOD ORDERABLES Performing Organization Address City/[facility]/ZIP Code Phon e Number [facility] [address] [place], [place] [address] LIPID REFLEX TO DIRECT LDL PANEL (04/26/2015 8:26 AM MARINE ENGINE DRIVER) P athologist Signature Cholesterol 109 <200 mg/dL [facility] Triglycerides 70 <150 mg/dL [facility] Comment: Fasting specimen HDL Cholesterol 54 >49 mg/dL [facility] LDL Cholesterol Calculated 41 <100 mg/dL FA [facility] Comment: Desirable: <100 mg/dl Non HDL Cholesterol 55 <130 mg/dL [facility] Specimen Anatomical Collection Method Collection Time Receive d Time (Source) Location / / Volume Laterality Blood specimen 04/26/2015 8:26 AM 016 8:27 (specimen) MARINE ENGINE DRIVER AM MARINE ENGINE DRIVER Gina Bautista PA-C LAB - BLOOD ORDERABLES Performing Organization Address City/[facility]/ZIP Code Phon e Number [facility] [address] [place] [address] (ABNORMAL) TSH with free T4 reflex (04/26/2015 8:26 AM MARINE ENGINE DRIVER) P athologist Signature TSH 7.92 (H) 0.40 - [facility] 4.00 mU/L [facility] Specimen Anatomical Collection Method Collection Time Receive d Time (Source) Location / / Volume Laterality Blood specimen 04/26/2015 8:26 AM 016 8:27 (specimen) MARINE ENGINE DRIVER AM MARINE ENGINE DRIVER Gina Bautista PA-C LAB - BLOOD ORDERABLES Performing Organization Address City/State/ZIP Code Phon e Number [facility] [address] [place] [address] (ABNORMAL) Comprehensive metabolic panel (04/26/2015 8:26 AM MARINE ENGINE DRIVER) [facility] gist Method Time Signature Sodium 140 133 - 144 [place] mmol/L [facility] Potassium 4.1 3.4 - 5.3 [place] mmol/L [facility] Chloride 109 94 - 109 [place] mmol/L [facility] Carbon Dioxide 23 20 - 32 [place] mmol/L [facility] Anion Gap 8 3 - 14 [place] mmol/L [facility] Glucose 87 70 - 99 [place] mg/dL [facility] Urea Nitrogen 10 7 - 30 [place] mg/dL [facility] Creatinine 0.74 0.52 - [facility] 1.04 CLINICS mg/dL [facility] GFR Estimate >90 >60 [place] Non GFR Calc mL/min/1. CLINICS 7m2 [facility] GFR Estimate If >90 >60 [place] Black GFR Calc mL/min/1. CLIN ICS 7m2 [facility] Calcium 8.3 (L) 8.5 - [facility] 10.1 [facility]ICS mg/dL [facility] Bilirubin Total 0.5 0.2 - 1.3 [place] mg/dL [facility] Albumin 3.8 3.4 - 5.0 [place] g/dL [facility] Protein Total 7.4 6.8 - 8.8 [place] g/dL [facility] Alkaline 71 40 - 150 [place] Phosphatase U/L [facility] ALT 19 0 - 50 [place] U/L [facility] AST 14 0 - 45 [place] U/L [facility] Specimen Anatomical Collection Method Collection Time Receive d Time (Source) Location / / Volume Laterality Blood specimen 04/26/2015 8:26 AM 016 8:27 (specimen) MARINE ENGINE DRIVER AM MARINE ENGINE DRIVER Gina Bautista PA-C LAB - BLOOD ORDERABLES Performing Organization Address City/State/ZIP Code Phon e Number [facility] [address] [place] [address] documented in this encounter Visit Diagnoses Diagnosis Encounter for routine adult physical exa m with abnormal findings Overweight 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 documented in this encounter Additional Health Concerns Assessment Noted Time PHQ-9 Depression Total Score: 16 04/26/2015 8:54 AM CS T documented as of this encounter Care Teams Cuff Slitter Relationship Specialty Start Date End Date Gina Bautista, PCP - General Physician Photographic Platemaker 5 09/03/21 PA-C [id number] [address] [id number] Gina Bautista, PCP - Assigned PCP 01/12/15 05/11/18 PA-C [id number] [address] [phone] Gina Bautista, Physician Photographic Platemaker 01/31/15 PA-C [id number] [place] [id number] Gina Bautista, Assigned PCP 01/12/15 PA-C [id number] [address] [id number] documented as of this encounter
--- OUTSIDE RECORDS SUMMARY | 2021-12-17 15:39 | XMS_ITS | Encounter Summary ---
:1985 Author Organization [place] Address [address] [place] [address]. [place] [address] Care Team Providers Name Role Phone Gina Bautista PA-C Primary Care Provider [phone] Gina Bautista PA-C Unavailable [phone] Gina Bautista PA-C Unavailable [phone] Gina Bautista PA-C Unavailable [phone] Reason for Referral - Closed Specialty Diagnoses / Procedures Referred By Contact Refer red To Contact Diagnoses S/P gastric bypass Gina Bautista, Procedures VITAMIN B12 INJ /1000MCG [place] [address] [place] [address] Referral ID Status Reason Start Date Expiration Date Visits Requ ested Visits Authorized [id number] Closed 12/29/2016 12/29/2017 1 1 Reason for Visit Reason Comments Imm/Inj starting B 12 injections Encounter Details Date Type Department Care Team Description 12/29/2016 Allied Health/Nurse [facility] Imm /Inj (starting B 12 Visit Clinic [place] injections ) [address] [place] [phone] Social History Tobacco Use Types Packs/Day Years [...] [address] [place], [place] [address] (Wo rk) documented as of this encounter Visit Diagnoses Diagnosis S/P gastric bypass - Primary Bariatric surgery status documented in this encounter Additional Health Concerns Assessment Noted Time PHQ-9 Depression Total Score: 7 12/19/2016 3:37 PM CDT documented as of this encounter Care Teams Verification Specialist Relationship Specialty Start Date End Date Gina Bautista, PCP - General Physician Contact Manager 5 09/03/21 PA-C [address] [place] [address] Gina Bautista, PCP - Assigned PCP 01/12/15 05/11/18 PA-C 549[address] [place] [address] Gina Bautista, Physician Contact Manager 01/31/15 PA-C [address]58[address] [place] [address] Gina Bautista, Assigned PCP 01/12/15 PA-C [address] [place] [address] documented as of this encounter
--- OUTSIDE RECORDS SUMMARY | 2021-12-17 15:39 | XMS_ITS | Encounter Summary ---
:1985 Author Organization [place] Address [address] [place] [address] Care Team Providers Name Role Phone Unavailable Primary Care Provider Unavailable Encounter Details Date Type Department Care Team Description 09/30/2005 Results Only [facility] Home Jessica [facility] [place] [address] (Wo rk) Social History Tobacco Use Types Packs/Day Years Used Date Smoking Tobacco: Never Assessed Sex Assigned at Date Recorded Not on file documented as of this encounter Plan of Treatment Upcoming Encounters Date Type Specialty Care Team Description 01/07/2022 Virtual Visit Endocrinology Natalya Jean MD [address] [place] [address] (Wo rk) documented as of this encounter Procedures Procedure Name Priority Date/Time Associated Diagnosis Comme [facility] X-RAY FOOT Routine 09/30/2005 10:59 AM Results for this COMPLETE >=3 VIEWS CDT procedure are in the results section. documented in this encounter Results X-RAY FOOT 3+ VW (09/30/2005 10:59 AM CDT) Anatomical Region Laterality Modality Other Specimen (Source) Anatomical Collection Method Collection Time Re ceived Time Location / / Volume Laterality 09/30/2005 10:59 AM CDT Impressions 09/30/2005 11:39 AM CDT 3 VIEW RIGHT FOOT - 09/30/2005 ?? HISTORY: Blunt trauma to the right foot. ?? FINDINGS: Negative three-view right foot . Home Jessica MD GENERAL IMAGING documented in this encounter Visit Diagnoses Not on filedocumented in this encounter
--- OUTSIDE RECORDS SUMMARY | 2021-12-17 15:39 | XMS_ITS | Encounter Summary ---
:1985 Author Organization [place] Address [address] [place] [address]. [place] [address] Care Team Providers Name Role Phone Gian Bautista PA-C Primary Care Provider [phone] Gina Bautista PA-C Unavailable [phone] Gina Bautista PA-C Unavailable [phone] Gina Bautista PA-C Unavailable [phone] Encounter Details Date Type Department Care Team Description 05/22/2017 Office Visit [facility] Lisa Lopez LP Anxiety (Primary Dx) Services [address] [phone] Social History Tobacco Use Types Packs/Day Years [...] at this time, however client [facility] number / 911 should there be a [...] [address] [place] [address] (Wo rk) documented as of this encounter Visit Diagnoses Diagnosis Anxiety - Primary Anxiety state, unspecified documented in this encounter Additional Health Concerns Assessment Noted Time PHQ-9 Depression Total Score: 10 05/09/2017 8:01 AM CS T documented as of this encounter Care Teams Poultry Breeder Relationship Specialty Start Date End Date Gina Bautista PCP - General Physician Mobile Game Engineer 5 09/03/21 PALiuC [address] [place] [address] Gina Bautista, PCP - Assigned PCP 01/12/15 05/11/18 PA-C 26805 [place], [place] [address] Gina Bautista, Physician Mobile Game Engineer 01/31/15 PA-C 57444 [place] [address] iGna Bautista, Assigned PCP 01/12/15 PA-C 31445 [place] [address] documented as of this encounter
--- OUTSIDE RECORDS SUMMARY | 2021-12-17 15:39 | XMS_ITS | Encounter Summary ---
:1985 Author Organization [place] Address [address] [place] [address]. [place] [address] Care Team Providers Name Role Phone Gina Bautista PA-C Primary Care Provider [phone] Gina Bautista PA-C Unavailable [phone] Gina Bautista PA-C Unavailable [phone] Gina Bautista PA-C Unavailable [phone] Reason for Visit Reason Comments Panel Management Needs PAP Encounter Details Date Type Department Care Team Description 03/13/2015 [facility] Jigna Vance PA-C (Needs PAP ) [address] [place] [id number] [place] [address] [place] [phone] [id number] Social History Tobacco Use Types Packs/Day Years [...] for provider review: None Marianne Tony CMA (AAMT) 03/13/2015 3:48 PM OR OF OSTEOPATHY documented in this encounter Plan of Treatment Upcoming Encounters Date Type Specialty Care Team Description 01/07/2022 Virtual Visit Endocrinology Natalya Jean MD [address] [place] [address] (Wo rk) documented as of this encounter Visit Diagnoses Not on filedocumented in this encounter Additional Health Concerns Assessment Noted Time PHQ-9 Depression Total Score: 13 02/01/2015 7:29 AM CS T documented as of this encounter Care Teams Supervisor Power Reactor Relationship Specialty Start Date End Date Gina Bautista, PCP - General Physician Transportation Security Officer 5 09/03/21 PA-C [address] [place] [address] Gina Bautista, PCP - Assigned PCP 01/12/15 05/11/18 PA-C 53979 [place] [address] Gina Bautista, Physician Transportation Security Officer 01/31/15 PA-C 62129 [place] [address] Gina Bautista, Assigned PCP 01/12/15 PA-C 51646 [place] [address] documented as of this encounter
--- OUTSIDE RECORDS SUMMARY | 2021-12-17 15:39 | XMS_ITS | Encounter Summary ---
:1985 Author Organization [place] Address [address] [place] [address]. [place] [address] Care Team Providers Name Role Phone Gina Bautista PA-C Primary Care Provider [phone] Gina Bautista PA-C Unavailable [phone] Gina Bautista PA-C Unavailable [phone] Gina Bautista PA-C Unavailable [phone] Encounter Details Date Type Department Care Team Description 05/08/2017 Office Visit [facility] Lisa Lopez LP Anxiety (Primary Dx) Services [address] [phone] Social History Tobacco Use Types Packs/Day Years [...] her ex spouse. At work, has received SPIL GAMESs and a perk. But has lots of [...] Lisa Lopez LP February 19, 2017 ON RAILS CONSULTANT documented in this encounter Plan of Treatment Upcoming Encounters Date Type Specialty Care Team Description 01/07/2022 Virtual Visit Endocrinology Natalya Jean MD [address] [place] [address] (Wo rk) documented as of this encounter Visit Diagnoses Diagnosis Anxiety - Primary Anxiety state, unspecified documented in this encounter Additional Health Concerns Assessment Noted Time PHQ-9 Depression Total Score: 10 05/09/2017 8:01 AM CS T documented as of this encounter Care Teams Skating Carhop Relationship Specialty Start Date End Date Gina Bautista, PCP - General Physician Home Service Director 5 09/03/21 PA-C [address] [place] [address] Gina Bautista, PCP - Assigned PCP 01/12/15 05/11/18 PA-C [address] [place] [address] Gina Bautista, Physician Home Service Director 01/31/15 PA-C 12570 [place] [address] Gina Bautista, Assigned PCP 01/12/15 PA-C [address]37 [place] [address] documented as of this encounter
--- OUTSIDE RECORDS SUMMARY | 2021-12-17 15:39 | XMS_ITS | Encounter Summary ---
:1985 Author Organization [place] Address [address] [place] [address] Care Team Providers Name Role Phone Gina Bautista PA-C Primary Care Provider [phone] Gina Bautista PA-C Unavailable [phone] Gina Bautista PA-C Unavailable [phone] Gina Bautista PA-C Unavailable [phone] Encounter Details Date Type Department Care Team Description 04/27/2015 [facility] Only [facility] Iro n deficiency anemia, [facility] unspecified iron [address] [place] [address] Social History Tobacco Use Types [...] [address] [place] [address] (Wo rk) documented as of this encounter Procedures Procedure Name Priority Date/Time Associated Diagnosis Comme nts IRON AND IRON Routine 04/27/2015 11:50 AM Iron deficiency Resu lts for this BINDING CAPACITY SENIOR NET APPLICATION DEVELOPER anemia, unspecified proc edure are in iron deficiency the results section. FERRITIN Routine 04/27/2015 11:50 AM Iron deficiency Resul ts for this SENIOR NET APPLICATION DEVELOPER anemia, unspecified procedur e are in iron deficiency the results section. documented in this encounter Results (ABNORMAL) Iron and iron binding capacity (04/27/2015 11:50 AM SENIOR NET APPLICATION DEVELOPER) Patholo gist Method Time Signature Iron 13 (L) 35 - 180 [facility] Iron Binding 619 (H) 240 - 430 [facility] Cap ug/dL [facility] Iron Saturation 2 (L) 15 - 46 % [facility] Index [facility] Specimen Anatomical Collection Method Collection Time Receive d Time (Source) Location / / Volume Laterality Blood specimen 04/27/2015 11:50 6 (specimen) AM SENIOR NET APPLICATION DEVELOPER 11:51 AM SENIOR NET APPLICATION DEVELOPER Gina Bautista PA-C LAB - BLOOD ORDERABLES Performing Organization Address City/[facility]/ZIP Code Phon e Number [facility] [address] [place] [address] (ABNORMAL) Ferritin (04/27/2015 11:50 AM SENIOR NET APPLICATION DEVELOPER) P athologist Signature Ferritin 2 (L) 12 - 150 [facility] ng/mL [facility] Specimen Anatomical Collection Method Collection Time Receive d Time (Source) Location / / Volume Laterality Blood specimen 04/27/2015 11:50 6 (specimen) AM SENIOR NET APPLICATION DEVELOPER 11:51 AM SENIOR NET APPLICATION DEVELOPER Gina Bautista PA-C LAB - BLOOD ORDERABLES Performing Organization Address City/[facility] Phon e Number [facility] [address] [place] [address] documented in this encounter Visit Diagnoses Diagnosis Iron deficiency anemia, unspecified iron deficiency documented in this encounter Additional Health Concerns Assessment Noted Time PHQ-9 Depression Total Score: 16 04/26/2015 8:54 AM CS T documented as of this encounter Care Teams Cream Ripener Relationship Specialty Start Date End Date Gina Bautista PCP - General Physician Correspondence Analyst 5 09/03/21 [place] [address] [place] [address] Gina Bautista, PCP - Assigned PCP 01/12/15 05/11/18 PA-C [address] [place] [address] Gina Bautista, Physician Correspondence Analyst 01/31/15 PA-C [address] [place] [address] Gina Bautista, Assigned PCP 01/12/15 PA-C 7[address] [place] [address] documented as of this encounter
== END 2021-12-17 14:15 | disposition home or self-care (01) ==
LOC: NFLDREF 15:37
PROVIDERS: PCP Internal Medicine; Visit Provider Obstetrics & Gynecology
DX: E03.9 Hypothyroidism, unspecified (principal); E55.9 Vitamin D deficiency, unspecified
CPT/HCPCS: 84439; 84443

== ENCOUNTER 2022-01-14 14:51 | Outpatient (CLI) | payer BC, SELFPAY ==
--- OUTSIDE RECORDS SUMMARY | 2022-01-14 14:53 | XMS_ITS | Encounter Summary ---
:1985 Author Organization [place] Address [address] [place] [address]. [place] [address] Care Team Providers Name Role Phone Gina Bautista PA-C Primary Care Provider OestrGina daniels PA-C Unavailable Gina Bautista PA-C Unavailable Gina Bautista PA-C Unavailable Encounter Details Date Type Department Care Team Description 11/12/2017 [facility] Lisa Lopez LP Documentation Services [address] [phone] Social History Tobacco Use Types Packs/Day Years [...] documented in this encounter Plan of Treatment Not on filedocumented as of this encounter Visit Diagnoses Not on filedocumented in this encounter Additional Health Concerns Assessment Noted Time PHQ-9 Depression Total Score: 10 05/09/2017 8:01 AM CS T documented as of this encounter Care Teams Cooling System Operator Relationship Specialty Start Date End Date Gina Bautista, PCP - General Physician Precinct Commanding Officer 5 09/03/21 PA-C Gina Bautista, PCP - Assigned PCP 01/12/15 05/11/[address] [facility] [address] [place] [address] Gina Bautista, Physician Precinct Commanding Officer 01/31/15 PA-C Gina Bautista, Assigned PCP 01/12/[address] [facility] [address] [place] [address] documented as of this encounter
--- OUTSIDE RECORDS SUMMARY | 2022-01-14 14:53 | XMS_ITS | Encounter Summary ---
:1985 Author Organization [place] Address [address] [place] [address]. [place] [address] Care Team Providers Name Role Phone Gina Bautista PA-C Primary Care Provider Gina Bautista PA-C Unavailable Vidya Espinal APRN [facility] Unavailable [phone] Clinic, [facility] Unavailable Encounter Details Date Type Department Care Team Description 08/08/[address] [facility] Scan, ENDOCRINOLOGY ORDER Health Info [facility] Non-Provider [facility] [address] [place] [phone] Social History Tobacco Use Types Packs/Day Years Used Date Smoking Tobacco: Never Smokeless Tobacco: Never Alcohol Use Standard Drinks/Week Comments Yes 0 (1 standard drink = 0.6 oz pure alcoho l) Sex Assigned at Date Recorded Not on file documented as of this encounter Plan of Treatment Not on filedocumented as of this encounter Visit Diagnoses Not on filedocumented in this encounter Additional Health Concerns Assessment Noted Time PHQ-9 Depression Total Score: 10 05/09/2017 8:01 AM CS T documented as of this encounter Care Teams Hot Mill Roller Relationship Specialty Start Date End Date Gina Bautista, PCP - General Physician Flanger 5 09/03/21 DOLORES Gina Bautista Physician Flanger 01/31/15 [place]OLOR[place] Vidya Espinal APRN CNM Elementary Secretary 08/21/[address] [address] [facility] 08/21/[address] [address] documented as of this encounter
--- OUTSIDE RECORDS SUMMARY | 2022-01-14 14:53 | XMS_ITS | Encounter Summary ---
:1985 Author Organization [place] Address [address] [place] [address]. [place] [address] Care Team Providers Name Role Phone Gina Bautista PA-C Primary Care Provider Gina Bautista PA-C Unavailable Gina Bautista PA-C Unavailable Gina Bautista PA-C Unavailable Encounter Details Date Type Department Care Team Description 05/22/2017 Office Visit [facility] Lisa Lopez LP Anxiety (Primary Dx) Services [address] [phone] Social History Tobacco Use Types Packs/Day Years [...] filedocumented as of this encounter Visit Diagnoses Diagnosis Anxiety - Primary Anxiety state, unspecified documented in this encounter Additional Health Concerns Assessment Noted Time PHQ-9 Depression Total Score: 10 05/09/2017 8:01 AM CS T documented as of this encounter Care Teams Medical Diagnostic Radiographer Relationship Specialty Start Date End Date Gina Bautista PCP - General Physician Bookkeepers Supervisor 5 09/03/21 PA-C Gina Bautista, PCP - Assigned PCP 01/12/15 05/11/18 [facility] [address] [place] [address] Gina Bautista, Physician Bookkeepers Supervisor 01/31/15 PA-C Gina Bautista, Assigned PCP 01/12/15 [facility] [address] [place] [address] documented as of this encounter
--- OUTSIDE RECORDS SUMMARY | 2022-01-14 14:53 | XMS_ITS | Encounter Summary ---
:1985 Author Organization [place] Address [address] [place] [address]. [place] [address] Care Team Providers Name Role Phone Gina Bautista PA-C Primary Care Provider Gina Bautista PA-C Unavailable Gina Bautisat PA-C Unavailable Gina Bautista PA-C Unavailable [phone] Reason for Visit Reason Onset Date Comments Outreach 05/27/2017 Encounter Details Date Type Department Care Team Description 05/27/2017 Telephone [facility] Lyle Bautista Outreach [place] DOLORES Vance [address] [facility] [place] [phone] [phone] [phone] [place], [place] [address] (Wo rk) Social History Tobacco Use Types [...] Panchito Gandhi sent at 04/15/2017 4:53 PM ORDER EXPEDITER ----- Call pt to schedule lab only in next 2 weeks. Labs pended. Panchito Gandhi CMA ([facility]) documented in this encounter Plan of Treatment Not on filedocumented as of this encounter Visit Diagnoses Not on filedocumented in this encounter Additional Health Concerns Assessment Noted Time PHQ-9 Depression Total Score: 10 05/09/2017 8:01 AM CS T documented as of this encounter Care Teams Mixing And Dispensing Supervisor Relationship Specialty Start Date End Date Gina Bautista PCP - General Physician District Superintendent 5 09/03/21 PA-C Gina Bautista, PCP - Assigned PCP 01/12/15 05/11/18 [facility] [address] [place] [address] Gina Bautista, Physician District Superintendent 01/31/15 PA-C Gina Bautista, Assigned PCP 01/12/15 [facility] [address] [place] [address] documented as of this encounter
--- OUTSIDE RECORDS SUMMARY | 2022-01-14 14:53 | XMS_ITS | Encounter Summary ---
:1985 Author Organization [place] Address [address] [place] [address]. [place] [address] Care Team Providers Name Role Phone Gina Bautista PA-C Primary Care Provider Gina Bautista PA-C Unavailable [phone] Gina Bautista PA-C Unavailable Gina Buatista PA-C Unavailable Encounter Details Date Type Department Care Team Description 05/08/2017 Office Visit [facility] Lisa Lopez LP Anxiety (Primary Dx) Services [address] [phone] Social History Tobacco Use Types Packs/Day Years [...] her ex spouse. At work, has received BabyBusdos and a perk. But has lots of [...] plan. Lisa Lopez LP February 19, 2017 ERIZER FEEDER documented in this encounter Plan of Treatment Not on filedocumented as of this encounter Visit Diagnoses Diagnosis Anxiety - Primary Anxiety state, unspecified documented in this encounter Additional Health Concerns Assessment Noted Time PHQ-9 Depression Total Score: 10 05/09/2017 8:01 AM CS T documented as of this encounter Care Teams Starch Cooker Relationship Specialty Start Date End Date Gina Bautista, PCP - General Physician Marshmallow Machine Worker 5 09/03/21 DOLORES Gina Bautista, PCP - Assigned PCP 01/12/15 05/11/18 DOLOR[place] [facility] [address] [place] [address] Gina Bautista, Physician Marshmallow Machine Worker 01/31/15 DOLOR[place] Gina Bautista, Assigned PCP 01/12/15 DOLORES [facility] [address] [place], [place] [id number] documented as of this encounter
--- OUTSIDE RECORDS SUMMARY | 2022-01-14 14:53 | XMS_ITS | Encounter Summary ---
:1985 Author Organization [place] Address [address] [place] [address] Care Team Providers Name Role Phone Gina Bautista PA-C Unavailable [phone] Vidya Espinal APRN, CNM Unavailable [phone] [facility], [facility] Unavailable Marissa Jean MD Unavailable Violette Bolden CNM Primary Care Provider Reason for Visit Reason Onset Date Comments Appointment 09/04/2021 Encounter Details Date Type Department Care Team Description 09/04/2021 Telephone [facility] Natalya Jean, Lizzeth Israel MD [address] [facility] [address] [place] [address] [place] [address] (Wo rk) Social History Tobacco Use Types Packs/Day Years Used Date Smoking Tobacco: Never Smokeless Tobacco: Never Alcohol Use Standard Drinks/Week Comments Yes 0 (1 standard drink = 0.6 oz pure alcoho l) Sex Assigned at Date Recorded Not on file documented as of this encounter Miscellaneous Notes Telephone Encounter - Zulay Bhavana - 09/04/2021 12:21 PM CDT [facility], relayed message to credit products officer she will relay this message to the team/person who called. Telephone Encounter - Marissa Jean MD - 09/04/2021 10:29 AM CDT NEW PT TO ME. I am very sorry- but at this time schedule is booked out and I do not have any sooner appointments. Patient my wish to request endo consult at another locations or [facility] Endocrinology. Let me know if you have any questions. Thank you. Marissa Jean MD Telephone Encounter - Karyn Iniguez RN - 09/04/2021 9:15 AM CDT Please advise as pt is . Telephone Encounter - Kendall Burden - 09/04/2021 9:08 AM CDT [facility] Call Center Phone Message May a detailed message be left on voicemail: yes Reason for Call: Appointment Intake Referring Provider Name: Vidya Espinal Diagnosis and/or Symptoms: Hypothyroidism and Per referral urgency 3-5 days. [facility] wondering if pt can be seen [...] as of this encounter Care Teams Rn Practitioner Relationship Specialty Start Date End Date Violette Bolden CNM PCP - General 09/04/21 [facility] [address] [place] [address] Gina Bautista, Physician In School Suspension Coordinator 01/31/15 [place] Vidya Espinal APRN CNM Portable Power Tool Repairer 08/21/[address] [place] [address] [facility], [facility] 08/21/[address] [address] Marissa Jean MD Hospitalist Endocrinology, 09/04/21 [address] Diabetes, and [address] Met[address] [place], [place] [address] documented as of this encounter
--- OUTSIDE RECORDS SUMMARY | 2022-01-14 14:53 | XMS_ITS | Encounter Summary ---
:1985 Author Organization [place] Address [address] [place] [address]. [place] [address] Care Team Providers Name Role Phone Gina Bautista PA-C Primary Care Provider Gina Bautista PA-C Unavailable iVdya Espinal APRN [facility] Unavailable [phone] Clinic, [facility] Unavailable Encounter Details Date Type Department Care Team Description 2021 Medical Correspondence [facility] Scan, ENDOCRINOLOGY Health Info Mgmt Non-Provider REFERRAL [address] [phone] Social History Tobacco Use Types [...] documented as of this encounter Care Teams Top Stop Attacher Relationship Specialty Start Date End Date Gina Bautista, PCP - General Physician Instructional Design Consultant 5 09/03/21 DOLORES Gina Bautista, Physician Instructional Design Consultant 01/31/15 [place]OLOR[place] Vidya Espinal APRN CNM Mobile Application Developer 08/21/[address] [address] [facility] 08/21/[address] [address] documented as of this encounter
--- OUTSIDE RECORDS SUMMARY | 2022-01-14 14:53 | XMS_ITS | Clinical Summary ---
:1985 Author Organization [employer] [facility] [place] [address] Care Team Providers Name Role Phone Pcp, [...] = 9 in March; Hgb 10.3 at [facility] before transfer History of delivery 02/02/2018 High-risk [...] if not delivered. 7. contractions with mild superintendent storage area al cervical change, admitted to [place] and received steroids x 2. It's a [...] Labor 12/02 36w 2.72 kg M Vag Lray Ell io 0d (6 lb) ng tt [...] 01/16/2023 01/17/2020, 01/17/2020, 12/19/2016 [facility] Tetanus booster 04/05/2028 04/05/2018, 03/09/2012 Tdap Completed 04/05/2018, 03/09/2012 Results Not on filefrom Last 3 Months Advance Directives Latest Code Status on File Code Status Date Activated Date Inactivated Comments Full Code 05/25/2018 11:18 PM 05/28/2018 2:46 PM Full Code 05/03/2018 7:52 PM 05/04/2018 5:01 PM Full Code 07/04/2013 11:25 AM 07/04/2013 4:53 PM Care Teams Grey Roll Man Relationship Specialty Start Date End Date Pcp, No PCP - General 01/15/19 .
--- OUTSIDE RECORDS SUMMARY | 2022-01-14 14:53 | XMS_ITS | Clinical Summary ---
:1985 Author Organization [place] Address [address] [place] [address] Care Team Providers Name Role Phone Gina Bautista PA-C Unavailable [phone] Vidya Espinal APRN CN Unavailable [phone] [facility], [facility] Unavailable Marissa Jean MD Unavailable [...] symptoms greater than 10 days fluticasone (FLONASE) [place] 1-2 sprays 1 Bottle 11 02/22/2017 Active 50 MCG/ACT into both nostrils sprayIndications: daily Acute sinusitis with symptoms greater than 10 days vitamin D Take 1 capsule 12 capsule 0 04/14/2017 Act clay[place] (ERGOCALCIFEROL) (50,000 Units) [place] [address] UNIT mouth once a week capsuleIndications: Lab [...] Comments Blood Pressure 108/62 02/22/2017 11:59 AM ENGINEERING DIRECTOR Pulse 61 02/22/2017 11:59 AM ENGINEERING DIRECTOR Temperature 36.7 ??C (98.1 ??F) 02/22/2017 11:59 AM ENGINEERING DIRECTOR Respiratory Rate 15 12/19/2016 2:53 PM CDT Oxygen Saturation 100% 02/22/2017 11:59 AM ENGINEERING DIRECTOR Inhaled Oxygen Concentration - - Weight 79.3 kg (174 lb 12.8 oz) 01/27/2017 1:05 PM ENGINEERING DIRECTOR Height 167.6 cm (5' 6) 12/19/2016 2:53 PM CDT Body Mass Index 28.21 12/19/2016 2:53 PM CDT Plan of Treatment Health Maintenance Due Date Last Done Comments ADVANCE CARE PLANNING 1985 ANNUAL REVIEW OF HM ORDERS 1985 HEPATITIS B IMMUNIZATION (1 1987 of 3 - 3-dose series) COVID-19 Vaccine (#1) 02/20/1988 YEARLY PREVENTIVE VISIT 12/19/2017 12/19/2016, 04/25/2015 PHQ-2 (once per calendar 03/09/2021 05/08/2017, 04/24/2017, year) 02/19/2017, Additional history exists INFLUENZA VACCINE (#1) 2021 01/17/2020, 11/10/2017, 12/19/2016, Additional history exists HPV TEST 01/16/2023 01/17/2020 PAP 01/16/2023 01/17/2020, 12/19/2016, 08/07/2013 DTAP/TDAP/TD IMMUNIZATION 04/05/2028 04/05/2018, 04/05/2018 , (3 - Td or Tdap) 03/09/2012 HEPATITIS C SCREENING Completed 08/07/2021 HIV SCREENING Completed 08/07/2021 IPV IMMUNIZATION Aged Out No longer eligi [...] Phone Address Typ e / Group Dates [place] [id number] 2021-Pres [phone] [address] Ind[phone] [place] [address] [facility] [id number] 2016-Pres [address] PPO BEHAVIORAL ent [address] [place] [address] ([facility] [place] [address] Care Teams Pusher Operator Relationship Specialty Start Date End Date Violette Bolden CNM PCP - General 09/04/21 [facility] [address] [place] [address] Gina Bautista, Physician Residential Therapist 01/31/15 PA-C Vidya Espinal APRN CNM Veneer Stacker 08/21/21 [facility] [address] [facility] [address] [place] [address] [facility], [facility] 08/21/[address] [address] Marissa Jean MD Hospitalist Endocrinology, 09/04/21 [address] Diabetes, and [address] [place] [address]
--- OUTSIDE RECORDS SUMMARY | 2022-01-14 14:53 | XMS_ITS | Encounter Summary ---
:1985 Author Organization [place] Address [address] [place] [address] Care Team Providers Name Role Phone Gina Bautista PA-C Primary Care Provider Gina Bautista PA-C Unavailable [phone] Encounter Details Date Type Department Care Team Description 08/06/2020 Records - [facility] CONVERSION Provider, Histor ica Social History Tobacco Use Types Packs/Day Years Used Date Smoking Tobacco: Never Smokeless Tobacco: Never Alcohol Use Standard Drinks/Week Comments Yes 0 (1 standard drink = 0.6 oz pure alcoho l) Sex Assigned at Date Recorded Not on file documented as of this encounter Plan of Treatment Not on filedocumented as of this encounter Procedures Procedure Name [...] documented as of this encounter Care Teams Flap Lining Binder Relationship Specialty Start Date End Date Gina Bautista PA-C PCP - General Physician Model Set Artist 01/31/15 09/03/21 Gina Bautista PA-C Physician Model Set Artist 01/31/15 documented as of this encounter
--- OUTSIDE RECORDS SUMMARY | 2022-01-14 14:53 | XMS_ITS | Encounter Summary ---
:1985 Author Organization [place] Address [address] [place] [address] Care Team Providers Name Role Phone Gina Bautista PA-C Primary Care Provider OestrGina daniels PA-C Unavailable [phone] Gina Bautista PA-C Unavailable [phone] OestrGina daniels PA-C Unavailable [phone] Encounter Details Date Type Department Care Team Description 06/11/2017 Hospital Pathology [facility] Results MD Brynn [address] [address] (Wo rk) Social History Tobacco Use Types [...] Procedure Name Priority Date/Time Associated Diagnosis Comme [facility] SURGICAL PATHOLOGY Routine 06/11/2017 11:30 AM Re sults for this EXAM CDT procedure are i n the results section. documented in this encounter Results Surgical pathology exam (06/11/2017 11:30 AM CDT) Component Value Ref Test Analysis Performed At [facility] Method Time Signature Copath Report Patient Name: CARLEY JO COPATH MR#: [id number] Specimen #: [id number] Collected: 06/11/2017 Received: 06/11/2017 Reported: 06/12/2017 14:08 [...] par ts or translucent vesicles are identified. Backpackers Manager sections are submitted in 2 blocks. ??The rem ainder of the specimen is handled per [place] POC protocol. (Dictated by: ASHLEY Martinez 06/11/2017 03:17 PM) MICROSCOPIC: Microscopic examination is performed. CPT Codes: A: 69441-UK5, SO TESTING LAB LOCATION: [facility] [address] [place] [address] ??[phone] COLLECTION SITE: Client: [facility] Location: R548 (F) Specimen Anatomical Collection Method Collection Time Receive d Time (Source) Location / / Volume Laterality 06/11/2017 11:30 06/11/2017 2:41 AM CDT PM CDT Ryne Monson MD [facility] Organization Address City/State/ZIP Code Phon e Number [place] documented in this encounter Visit Diagnoses Not on filedocumented in this encounter Additional Health Concerns Assessment Noted Time PHQ-9 Depression Total Score: 10 05/09/2017 8:01 AM CS T documented as of this encounter Care Teams Production Assembler Relationship Specialty Start Date End Date Gina Bautista, PCP - General Physician Deli Department Manager 5 09/03/21 ASHLEY-C Gina Bautista, PCP - Assigned PCP 01/12/15 05/11/18 [facility] [address] [place] [address] Gina Bautista, Physician Deli Department Manager 01/31/15 [place] Gina Bautista, Assigned PCP 01/12/15 [facility] [address] [place] [address] documented as of this encounter
--- OUTSIDE RECORDS SUMMARY | 2022-01-14 14:53 | XMS_ITS | Encounter Summary ---
:1985 Author Organization [place] Address [address] [place] [address]. [place] [address] Care Team Providers Name Role Phone Gina Bautista PA-C Primary Care Provider Gina Bautista PA-C Unavailable Gina Bautista PA-C Unavailable Gina Bautista PA-C Unavailable Encounter Details Date Type Department Care Team Description 04/24/2017 Office Visit [facility] Lisa Lopez LP Anxiety (Primary Dx) Services [address] [phone] Social History Tobacco Use Types Packs/Day Years [...] plan. Lisa Lopez LP February 19, 2017 ING LOT SIGNALER documented in this encounter Plan of Treatment Not on filedocumented as of this encounter Visit Diagnoses Diagnosis Anxiety - Primary Anxiety state, unspecified documented in this encounter Additional Health Concerns Assessment Noted Time PHQ-9 Depression Total Score: 10 04/25/2017 8:01 AM CS T documented as of this encounter Care Teams Net Web Developer Relationship Specialty Start Date End Date Gina Bautista, PCP - General Physician Microbiology Teacher 5 09/03/21 [place] Gina Bautista, PCP - Assigned PCP 01/12/15 05/11/18 [facility] [address] [place] [address] Gina Bautista, Physician Microbiology Teacher 01/31/15 [place] Gina Bautista, Assigned PCP 01/12/15 [facility] [address] [place] [address] documented as of this encounter
--- OUTSIDE RECORDS SUMMARY | 2022-01-14 14:53 | XMS_ITS | Encounter Summary ---
:1985 Author Organization [place] Address [address] [place] [address] Care Team Providers Name Role Phone Gina Bautista PA-C Primary Care Provider [phone] Gina Bautista PA-C Unavailable [phone] Vidya Espinal APRN [facility] Unavailable [phone] [facility], [facility] Unavailable Reason for Referral Consultation (Urgent: 3-5 Days) - Pending Review Specialty Diagnoses / Procedures Referred By Contact Refer red To Contact Endocrinology, Diagnoses Hypothyroidism System, Provider Not Diabetes, and In Metabolism Referral ID Status Reason Start Date Expiration Date Visits V isits Requested Authorized [id number] Pending 2021 2022 1 1 Review Scheduling [...] as of this encounter Plan of Treatment Scheduled Referrals Name Type Priority Associated Diagnoses Order S chedule Adult Endocrinology Referral Urgent: 3-5 Days Hypothyroidism Ex pected: [employer] Dean Referral (Approximate), Expires: 2022 documented as of this encounter Visit Diagnoses Diagnosis Hypothyroidism - Primary Unspecified hypothyroidism documented in this encounter Additional Health Concerns Assessment Noted Time PHQ-9 Depression Total Score: 10 05/09/2017 8:01 AM CS T documented as of this encounter Care Teams Life Skills Coordinator Volunteer Relationship Specialty Start Date End Date Gina Bautista, PCP - General Physician Tuber Machine Operator 5 09/03/21 PA-C Gina Bautista, Physician Tuber Machine Operator 01/31/15 PA-C Vidya Espinal APRN CNM Fish Receiver 08/21/[address] [address] [facility], [facility] 08/21/[address] [address] documented as of this encounter
--- OUTSIDE RECORDS SUMMARY | 2022-01-14 14:54 | XMS_ITS | Encounter Summary ---
:1985 Author Organization [place] Address [address] [place] [address]. [place] [address] Care Team Providers Name Role Phone Unavailable Primary Care Provider Unavailable Encounter Details Date Type Department Care Team Description 05/23/2005 Historic Results INTERFACED REPORT Aleksandra Carrizales MD [address] [phone] (Wo rk) Social History Tobacco Use Types Packs/Day Years Used Date Smoking Tobacco: Never Assessed Sex Assigned at Date Recorded Not on file documented as of this encounter Plan of Treatment Not on filedocumented as of this encounter Procedures Procedure Name Priority Date/Time Associated Comments Diagnosis WET PREPARATION STAT 05/23/2005 9:45 AM Result s for this ENVIRONMENTAL TECHNICAL OFFICER procedure are i n the results section. NEISSERIA GONORRHOEAE STAT 05/23/2005 9:45 AM Results for this PCR ENVIRONMENTAL TECHNICAL OFFICER procedure are i n the results section. CHLAMYDIA TRACHOMATIS STAT 05/23/2005 9:45 AM Results for this PCR ENVIRONMENTAL TECHNICAL OFFICER procedure are i n the results section. HCG QUALITATIVE URINE STAT 05/23/2005 9:20 AM Results for this ENVIRONMENTAL TECHNICAL OFFICER procedure are i n the results section. ROUTINE UA WITH STAT 05/23/2005 9:20 AM Result s for this MICROSCOPIC ENVIRONMENTAL TECHNICAL OFFICER procedure are i n the results section. HEMOGRAM DIFFERENTIAL STAT 05/23/2005 7:35 AM Results for this AND PLATELET ENVIRONMENTAL TECHNICAL OFFICER procedure are i n the results section. BASIC METABOLIC PANEL STAT 05/23/2005 7:35 AM Results for this ENVIRONMENTAL TECHNICAL OFFICER procedure are i n the results section. documented in this encounter Results Chlamydia trachomatis PCR (05/23/2005 9:45 AM ENVIRONMENTAL TECHNICAL OFFICER) Component Value Ref Test Analysis Performed At [facility] Method Time Signature Specimen Cervical MISYS Description Chlamydia Negative for C. MISYS Trachomatis PCR trachomatis rRNA by welder oxyhydrogen mediated amplification. Comment: A negative result by welder oxyhydrogen medi ated amplification does not preclude the presence of C. trachomatis infection be cause results are dependent on proper and adequate collection, absence of inh ibitors, and sufficient rRNA to be detected. Specimen Anatomical Collection Method Collection Time Receive d Time (Source) Location / / Volume Laterality 05/23/2005 9:45 AM 6 ENVIRONMENTAL TECHNICAL OFFICER 10:02 AM ENVIRONMENTAL TECHNICAL OFFICER [facility] - MICRO GENERAL ORDERABL ES Performing Organization Address City/State/ZIP Code Phon e Number MISYS Neisseria gonorrhoeae PCR (05/23/2005 9:45 AM ENVIRONMENTAL TECHNICAL OFFICER) [facility] Method Time Signature Specimen Cervical MISYS Descrip N Gonorrhea Negative for N. MISYS PCR gonorrhoeae rRNA by welder oxyhydrogen mediated amplification. Comment: A negative result by welder oxyhydrogen medi ated amplification does not preclude the presence of N. gonorrhoeae infection be cause results are dependent on proper and adequate collection, absence of inh ibitors, and sufficient rRNA to be detected. Specimen Anatomical Collection Method Collection Time Receive d Time (Source) Location / / Volume Laterality 05/23/2005 9:45 AM 6 ENVIRONMENTAL TECHNICAL OFFICER 10:02 AM ENVIRONMENTAL TECHNICAL OFFICER [facility] - MICRO GENERAL ORDERABL ES Performing Organization Address City/[facility]/ZIP Code Phon e Number MISYS Wet prep (05/23/2005 9:45 AM ENVIRONMENTAL TECHNICAL OFFICER) [facility] Method Time Signature Specimen Vagina MISYS Description Micro Report FINAL MISYS Status [id number] Wet Prep Few PMN'S MISYS seen Comment: No Trichomonas seen No yeast seen No clue cells seen Specimen Anatomical Collection Method Collection Time Receive d Time (Source) Location / / Volume Laterality 05/23/2005 9:45 AM 6 ENVIRONMENTAL TECHNICAL OFFICER 10:02 AM ENVIRONMENTAL TECHNICAL OFFICER [facility] - MICRO GENERAL ORDERABL ES Performing Organization Address City/State/ZIP Code Phon e Number MISYS (ABNORMAL) Routine UA with microscopic (05/23/2005 9:20 AM ENVIRONMENTAL TECHNICAL OFFICER) [facility] Method Time Signature Source Midstream MISYS Urine Color Urine Yellow MISYS Appearance Urine Clear MISYS Glucose Urine Negative NEG mg/dL MISYS Bilirubin Urine Negative NEG MISYS Ketones Urine Negative NEG mg/dL MISYS Specific [place] 1.016 1.003 - MISYS Urine 1.035 Blood [...] Volume Laterality 05/23/2005 9:20 AM 6 7:48 ENVIRONMENTAL TECHNICAL OFFICER AM ENVIRONMENTAL TECHNICAL OFFICER [facility] - URINE ORDERABLES Performing Organization Address City/State/ZIP Code Phon e Number MISYS HCG qualitative urine (05/23/2005 9:20 AM ENVIRONMENTAL TECHNICAL OFFICER) P athologist Signature HCG Qual Urine Negative NEG MISYS Specimen Anatomical Collection Method Collection Time Receive d Time (Source) Location / / Volume Laterality 05/23/2005 9:20 AM 6 7:48 ENVIRONMENTAL TECHNICAL OFFICER AM ENVIRONMENTAL TECHNICAL OFFICER [facility] - URINE ORDERABLES Performing Organization Address City/[facility] Code Phon e Number MISYS (ABNORMAL) Hemogram differential and platelet (05/23/2005 7:35 AM ENVIRONMENTAL TECHNICAL OFFICER) [facility] Method Time Signature MCV 84 77 [...] Volume Laterality 05/23/2005 7:35 AM 6 7:48 ENVIRONMENTAL TECHNICAL OFFICER AM ENVIRONMENTAL TECHNICAL OFFICER [facility] - BLOOD ORDERABLES Performing Organization Address City/State/[facility] Code Phon e Number MISYS Basic metabolic panel (05/23/2005 7:35 AM ENVIRONMENTAL TECHNICAL OFFICER) P athologist Signature Sodium 141 133 - [...] Volume Laterality 05/23/2005 7:35 AM 6 7:48 ENVIRONMENTAL TECHNICAL OFFICER AM ENVIRONMENTAL TECHNICAL OFFICER [facility] - BLOOD ORDERABLES Performing Organization Address City/State/ZIP Code Phon e Number MISYS documented in this encounter Visit Diagnoses Not on filedocumented in this encounter
--- OUTSIDE RECORDS SUMMARY | 2022-01-14 14:54 | XMS_ITS | Encounter Summary ---
:1985 Author Organization [place] Address [address] [place] [address] Care Team Providers Name Role Phone Gina Bautista PA-C Primary Care Provider Gina Bautista PA-C Unavailable Gina Bautista PA-C Unavailable [phone] Gina Bautista PA-C Unavailable Reason for Visit Reason Comments URI Encounter Details Date Type Department Care Team Description 06/25/2015 Office Visit [facility] Serum, Ro Viral URI (Primary Dx); Yony Yarbrough MD Acute pharyngitis, unspecified etiology [address] [facility] [place] [address] HONDO [phone] [address] [place], [place] [address] Social History Tobacco Use [...] list, Allergies, and Medical/Social/Surgical histories reviewed in [facility] andupdated as appropriate. OBJECTIVE: BP 96/56 [...] Follow up with Provider - alexis Salgado [facility] YONY documented in this encounter [...] Component Value Ref Test Analysis Performed At [facility] Method Time Signature Specimen Throat [facility] YONY Culture Micro No Beta RARDEN Streptococcus CLINICS isolated YONY Micro Report FINAL 06/27/2015 [facility] YONY Specimen Anatomical Collection Method Collection Time Receive d Time (Source) Location / / Volume Laterality 06/25/2015 5:20 PM 6 5:25 CDT PM CDT Ro Salgado MD LAB - MICRO GENERAL ORDERABL ES Performing Organization Address City/State/ZIP Code Phon e Number [facility] [address] [place] [address] Strep, Rapid Screen (06/25/2015 5:20 PM CDT) Component Value Ref Test [facility] Method Time Signature Specimen Throat [facility] YONY Rapid Strep A NEGATIVE: No Group A strepto coccal antigen detected by immunoassay, await RARDEN Screen culture report. CLINICS YONY Micro Report FINAL 06/25/2015 [facility] YONY Specimen Anatomical Collection Method Collection Time Receive d Time (Source) Location / / Volume Laterality Specimen from 06/25/2015 5:20 PM 06/25/19 16 5:25 throat CDT PM CDT (specimen) Ro Salgado MD LAB - MICRO GENERAL ORDERABL ES Performing Organization Address City/State/ZIP Code Phon e Number [address] [address] documented in this encounter Visit Diagnoses Diagnosis Viral URI - Primary Acute upper respiratory infections of un specified site Acute pharyngitis, unspecified etiology documented in this encounter Additional Health Concerns Assessment Noted Time PHQ-9 Depression Total Score: 16 04/26/2015 8:54 AM CS T documented as of this encounter Care Teams Aquatics Coordinator Relationship Specialty Start Date End Date Gina Bautista, PCP - General Physician Deposit Refund Clerk 5 09/03/21 PA-C Gina Bautista, PCP - Assigned PCP 01/12/15 05/11/18 PA-C [facility] [address] [place] [address] Gina Bautista, Physician Deposit Refund Clerk 01/31/15 PA-C Gina Bautista, Assigned PCP 01/12/15 PA-C [facility] [address] [place] [address] documented as of this encounter
--- OUTSIDE RECORDS SUMMARY | 2022-01-14 14:54 | XMS_ITS | Encounter Summary ---
:1985 Author Organization [place] Address [address] [place] [address]. [place] [address] Care Team Providers Name Role Phone Gina Bautista PA-C Primary Care Provider Gina Bautista PA-C Unavailable Gina Bautista PA-C Unavailable [phone] Gina Bautista PA-C Unavailable [phone] Reason for Visit Mental Health Outpatient (Routine) - Closed Specialty Diagnoses / Procedures Referred By Contact Refer red To Contact Gina Bautista FAIRVI [facility] JANETTE BERNAL [facility] [phone] [place] [address] [place] [phone] Fax: Referral ID Status Reason Start Date Expiration Date Visits Requ ested Visits Authorized [facility] Closed 01/14/2017 01/14/2018 1 52 Encounter Details Date Type Department Care Team Description 02/19/2017 Office Visit [facility] Lisa Lopez LP Anxiety (Primary Dx) Services [phone] [place] [phone] Social History Tobacco Use Types Packs/Day Years [...] decree) Talks to relatives ( who are loss control consultant) to get concrete info. Explored TIP skills. [...] plan. Lisa Lopez LP February 19, 2017 GER documented in this encounter Plan of Treatment Not on filedocumented as of this encounter Visit Diagnoses Diagnosis Anxiety - Primary Anxiety state, unspecified documented in this encounter Additional Health Concerns Assessment Noted Time PHQ-9 Depression Total Score: 9 02/19/2017 2:07 PM DRAGGER documented as of this encounter Care Teams Braid Folder Relationship Specialty Start Date End Date Gina Bautista, PCP - General Physician Qa Automation Architect 5 09/03/21 PA-C Gina Bautista, PCP - Assigned PCP 01/12/15 05/11/18 PA-C [facility] [address] [place] [address] Gina Bautista, Physician Qa Automation Architect 01/31/15 PA-C Gina Bautista, Assigned PCP 01/12/15 PA-C [facility] [address] [place] [address] documented as of this encounter
--- OUTSIDE RECORDS SUMMARY | 2022-01-14 14:54 | XMS_ITS | Encounter Summary ---
:1985 Author Organization [place] Address [address] [place] [address]. [place] [address] Care Team Providers Name Role Phone Gina Bautista PA-C Primary Care Provider [phone] OestrGina daniels PA-C Unavailable Gina Bautista PA-C Unavailable OestrGina daniels PA-C Unavailable Reason for Visit Reason Comments IUD Encounter Details Date Type Department Care Team Description 01/27/2017 Office Visit [facility] Nadine Monreal Encou nter for IUD removal (Primary Dx); [facility] Encounter for preconception consultation [place] [address] [facility] [address] [place], [place] [address] [facility] [address] [place], [place] (Work) [address] [phone] Social History Tobacco Use Types Packs/Day Years Used Date Smoking Tobacco: Never Smokeless Tobacco: Never Alcohol Use Standard Drinks/Week Comments Yes 0 (1 standard drink = 0.6 oz pure alcoho l) Sex Assigned at Date Recorded Not on file documented as of this encounter Last Filed Vital Signs Vital Sign Reading Time Taken Comments Blood Pressure 100/60 01/27/2017 1:05 PM HYBRID TESTER Pulse - - Temperature - - Respiratory Rate - - Oxygen Saturation - - Inhaled Oxygen Concentration - - Weight 79.3 kg (174 lb 12.8 oz) 01/27/2017 1:05 PM HYBRID TESTER Height - - Body Mass Index 28.21 [...] muscle every 30 days vitamin D (ERGOCALCIFEROL) 00094 UNIT capsule Take 1 capsule (50,000 Units) [...] needed. Nadine Monreal MD [facility] ID TESTER documented in this encounter Nursing Notes Nataliia [...] 12.8 oz (79.3 kg). Medication Reconciliation: complete ID TESTER documented in this encounter Plan of Treatment Not on filedocumented as of this encounter Procedures Procedure Name Priority Date/Time Associated Diagnosis Comme nts HC REMOVE INTRAUTERINE Routine 01/27/2017 1:33 PM Encounter fo r IUD DEVICE HYBRID TESTER removal documented in this encounter Visit Diagnoses Diagnosis Encounter for IUD removal - Primary Encounter for removal of intrauterine co ntraceptive device Encounter for preconception consultation documented in this encounter Additional Health Concerns Assessment Noted Time PHQ-9 Depression Total Score: 7 12/19/2016 3:37 PM CDT documented as of this encounter Care Teams Transverse Abdominal Muscle Surgeon Relationship Specialty Start Date End Date Gina Bautista, PCP - General Physician Ornamental Rail Installer 5 09/03/21 PALiuC Gina Bautista, PCP - Assigned PCP 01/12/15 05/11/18 [facility] [address] [place] [address] Gina Bautista, Physician Ornamental Rail Installer 01/31/15 PA-C Gina Bautista, Assigned PCP 01/12/15 [facility] [address] [place] [address] documented as of this encounter
--- OUTSIDE RECORDS SUMMARY | 2022-01-14 14:54 | XMS_ITS | Encounter Summary ---
:1985 Author Organization [place] Address [address] [place] [address]. [place] [address] Care Team Providers Name Role Phone Unavailable Primary Care Provider Unavailable Encounter Details Date Type Department Care Team Description 07/21/2004 Historic Strip Mill Operator INTERFACED REPORT Ilana Levy Social History Tobacco Use Types Packs/Day Years Used Date Smoking Tobacco: Never Assessed Sex Assigned at Date Recorded Not on file documented as of this encounter Progress Notes Interface, Strip Mill Operator - 02/12/2011 3:18 AM MANAGER OF ENTERPRISE : 89 CHIEF COMPLAINT: Ankle and knee [...] EPIDEMIOLOGIC HISTORY: Patient attends school. They visited [place] in May 2004. PHYSICAL EXAMINATION: VITAL SIGNS: [...] appointment. [id number] KELLIE LEVY MD [place]: Document: [id number] CC: KELLIE LEVY MD [place], [place] Name: MR#: CARLEY CAHN -25 EMERGENCY ROOM ENCOUNTER Page 2 of 2 LCN: MARY JANE DSC: 07/21/2004 [place], [place] Name: MR#: CARLEY CHAN -23 : Admit Date: Account #: 1985 07/21/2004 [id number] Doctor: KELLIE LEVY MD EMERGENCY ROOM ENCOUNTER Page 1 of 2 GER OF ENTERPRISE documented in this encounter Plan of Treatment Not on filedocumented as of this encounter Visit Diagnoses Not on filedocumented in this encounter
--- OUTSIDE RECORDS SUMMARY | 2022-01-14 14:54 | XMS_ITS | Encounter Summary ---
:1985 Author Organization [place] Address [address] [place] [address] Care Team Providers Name Role Phone Gina Bautista PA-C Primary Care Provider [phone] Gina Bautista PA-C Unavailable Gina Bautista PA-C Unavailable Gina Bautista PA-C Unavailable Encounter Details Date Type Department Care Team Description 04/26/2015 Orders Only [facility] Enc ounter for routine adult physical exam with abnormal findings; [facility] Overweight; [address] Hypothyroidism due to acquir ed atrophy of thyroid [place] [address] Social History Tobacco Use Types Packs/Day [...] Encounter for Resu lts for this REFLEX AUTO BODY MAN routine adult procedure are in physical exam with the resul ts abnormal finding s section. Hypothyroidism due to acquired atrophy of thyroid T4 FREE Routine 04/26/2015 8:26 AM Encounter for Results for this AUTO BODY MAN routine adult procedure are in physical exam with the resul ts abnormal findings section. LIPID REFLEX TO DIRECT Routine 04/26/2015 8:26 AM Encounter fo r Results for this LDL PANEL AUTO BODY MAN routine adult procedure are in physical exam with the resul ts abnormal findings section. COMPREHENSIVE Routine 04/26/2015 8:26 AM Encounter for Results for this METABOLIC PANEL AUTO BODY MAN routine adult procedure a re in physical exam with the resul ts abnormal finding s section. Overweight CBC WITH PLATELETS Routine 04/26/2015 8:26 AM Encounter for Re sults for this AUTO BODY MAN routine adult procedure are in physical exam with the resul ts abnormal findings section. documented in this encounter Results T4 free (04/26/2015 8:26 AM AUTO BODY MAN) athologist Signature T4 Free 0.98 0.76 - 1.46 [facility] ng/dL [facility] Specimen Anatomical Collection Method Collection Time Receive d Time (Source) Location / / Volume Laterality 04/26/2015 8:26 AM 6 8:27 AUTO BODY MAN AM AUTO BODY MAN Gina Bautista PA-C LAB - BLOOD ORDERABLES Performing Organization Address City/State/ZIP Code Phon e Number [facility] [address] [place] [address] (ABNORMAL) CBC with platelets (04/26/2015 8:26 AM AUTO BODY MAN) athologist Signature WBC 4.7 4.0 - 11.0 [place] 10e9/L [facility] [place] RBC Count 4.41 3.8 - 5.2 [place] 10e12/L [facility] [place] Hemoglobin 8.4 (L) 11.7 - 15.7 [place] g/dL [facility] [place] Comment: Results confirmed by repeat mónica t Hematocrit 29.1 (L) 35.0 - 47.0 % [facility] [place] MCV 66 (L) 78 - 100 fl [facility] R [place] MCH 19.0 (L) 26.5 - 33.0 pg [facility] [place] MCHC 28.9 (L) 31.5 - 36.5 g/dL [place] [facility] [place] Comment: Results confirmed by repeat mónica t RDW 16.7 (H) 10.0 - 15.0 % [facility] [place] Platelet Count 321 150 - 450 10e9/L [facility] [place] Specimen Anatomical Collection Method Collection Time Receive d Time (Source) Location / / Volume Laterality Blood specimen 04/26/2015 8:26 AM 016 8:27 (specimen) AUTO BODY MAN AM AUTO BODY MAN Gina RAMIREZ-C LAB - BLOOD ORDERABLES Performing Organization Address City/[facility]/ZIP Code Phon e Number [facility] [address] [place] [address] LIPID REFLEX TO DIRECT LDL PANEL (04/26/2015 8:26 AM AUTO BODY MAN) P athologist Signature Cholesterol 109 <200 mg/dL [facility] Triglycerides 70 <150 mg/dL [facility] Comment: Fasting specimen HDL Cholesterol 54 >49 mg/dL [place] [facility] CS [facility] LDL Cholesterol Calculated 41 <100 mg/dL [facility] Comment: Desirable: <100 mg/dl Non HDL Cholesterol 55 <130 mg/dL [facility] Specimen Anatomical Collection Method Collection Time Receive d Time (Source) Location / / Volume Laterality Blood specimen 04/26/2015 8:26 AM 016 8:27 (specimen) AUTO BODY MAN AM AUTO BODY MAN Gina RAMIREZ-C LAB - BLOOD ORDERABLES Performing Organization Address [facility]/ZIP Code Phon e Number [facility] [address] [place] [address] (ABNORMAL) TSH with free T4 reflex (04/26/2015 8:26 AM AUTO BODY MAN) P athologist Signature TSH 7.92 (H) 0.40 - [facility] 4.00 mU/L [facility] Specimen Anatomical Collection Method Collection Time Receive d Time (Source) Location / / Volume Laterality Blood specimen 04/26/2015 8:26 AM 016 8:27 (specimen) AUTO BODY MAN AM AUTO BODY MAN Gina RAMIREZ-C LAB - BLOOD ORDERABLES Performing Organization Address City/[facility]/ZIP Code Phon e Number [facility] [address] [place] [address] (ABNORMAL) Comprehensive metabolic panel (04/26/2015 8:26 AM AUTO BODY MAN) [facility] gist Method Time Signature Sodium 140 133 - 144 [place] mmol/L [facility] Potassium 4.1 3.4 - 5.3 [place] mmol/L [facility] Chloride 109 94 - 109 [place] mmol/L [facility] Carbon Dioxide 23 20 - 32 [place] mmol/L [facility] Anion Gap 8 3 - 14 [place] mmol/L [facility] Glucose 87 70 - 99 [place] mg/dL [facility] Urea Nitrogen 10 7 - 30 [place] mg/dL [facility] Creatinine 0.74 0.52 - [place] 1.04 [facility] mg/dL [facility] GFR Estimate >90 >60 [place] Non GFR Calc mL/min/1. CLINICS 7m2 [facility] GFR Estimate If >90 >60 [place] Black GFR Calc mL/min/1. CLIN ICS 7m2 [facility] Calcium 8.3 (L) 8.5 - [place] 10.1 [facility] mg/dL [facility] Bilirubin Total 0.5 0.2 - 1.3 [place] mg/dL [facility] Albumin 3.8 3.4 - 5.0 [place] g/dL [facility] Protein Total 7.4 6.8 - 8.8 [place] g/dL [facility] Alkaline 71 40 - 150 [place] Phosphatase U/L [facility] ALT 19 0 - 50 [place] U/L [facility] AST 14 0 - 45 [place] U/L [facility] Specimen Anatomical Collection Method Collection Time Receive d Time (Source) Location / / Volume Laterality Blood specimen 04/26/2015 8:26 AM 016 8:27 (specimen) AUTO BODY MAN AM AUTO BODY MAN Gina Bautista PA-C LAB - BLOOD ORDERABLES Performing Organization Address City/State/ZIP Code Phon e Number [facility] [address] [place] [address] documented in this encounter Visit Diagnoses Diagnosis Encounter for routine adult physical exa m with abnormal findings Overweight 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 documented in this encounter Additional Health Concerns Assessment Noted Time PHQ-9 Depression Total Score: 16 04/26/2015 8:54 AM CS T documented as of this encounter Care Teams Powder Line Repairer Relationship Specialty Start Date End Date Gina Bautista PCP - General Physician Warm In Worker 5 09/03/21 PA-C Gina Bautista PCP - Assigned PCP 01/12/15 05/11/18 PA-C [facility] [address] [place] [address] Gina Bautista, Physician Warm In Worker 01/31/15 PA-C Gina Bautista, Assigned PCP 01/12/15 PA-C [facility] [address] [place] [address] documented as of this encounter
--- OUTSIDE RECORDS SUMMARY | 2022-01-14 14:54 | XMS_ITS | Encounter Summary ---
:1985 Author Organization [place] Address [address] [place] [address] Care Team Providers Name Role Phone Gina Bautista PA-C Primary Care Provider Gina Bautista PA-C Unavailable [phone] Gina Bautista PA-C Unavailable [phone] Gina Bautista PA-C Unavailable [phone] Reason for Referral - Closed Specialty Diagnoses / Procedures Referred By Contact Refer red To Contact Diagnoses S/P gastric bypass Gina Bautista, Procedures VITAMIN B12 INJ /1000MCG [facility] [address] [place] [address] Referral ID Status Reason Start Date Expiration Date Visits Requ ested Visits Authorized [id number] Closed 12/29/2016 12/29/2017 1 1 Reason for Visit Reason Comments Imm/Inj starting B 12 injections Encounter Details Date Type Department Care Team Description 12/29/2016 Allied Health/Nurse [facility] Imm /Inj (starting B 12 Visit Clinic [place] injections ) [address] [place] [phone] Social History Tobacco Use Types Packs/Day Years [...] documented as of this encounter Care Teams Nurse Tech Relationship Specialty Start Date End Date Gina Bautista PCP - General Physician Underground Distribution Engineer 5 09/03/21 PA-C Gina Bautista, PCP - Assigned PCP 01/12/15 05/11/18 PA-C [facility] [address] [place] [address] Gina Bautista, Physician Underground Distribution Engineer 01/31/15 PA-C Gina Bautista, Assigned PCP 01/12/15 PA-C [facility] [address] [place] [address] documented as of this encounter
--- OUTSIDE RECORDS SUMMARY | 2022-01-14 14:54 | XMS_ITS | Encounter Summary ---
:1985 Author Organization [place] Address Replaced by [facility] [place] [address] Care Team Providers Name Role Phone Gina Bautista PA-C Primary Care Provider [phone] Gina Bautista PA-C Unavailable Gina Bautista PA-C Unavailable Gina Bautista PA-C Unavailable Encounter Details Date Type Department Care Team Description 04/27/2015 Telephone [facility] Lyle Bautista PA-C [address] [place] [address] [address] [phone] [place], [place] [address] (Wo rk) Social History Tobacco Use Types Packs/Day Years Used Date Smoking Tobacco: Never Smokeless Tobacco: Never Alcohol Use Standard Drinks/Week Comments Yes 0 (1 standard drink = 0.6 oz pure alcoho l) Sex Assigned at Date Recorded Not on file documented as of this encounter Miscellaneous Notes Telephone Encounter - Gina Bautista PA-C - 04/27/2015 8:25 AM MILLING MACHINE OPERATOR GEAR Spoke with patient regarding labs. Will restart Synthroid 75mcg daily, recheck in 6-8 weeks Discussed low hemoglobin, will have her get labs today and then start iron replacement BID, recheck in 6-8 weeks as well. Discussed remained of labs. Gina Bautista PA-C ING MACHINE OPERATOR GEAR Telephone Encounter - Monica Tony CMA - 04/27/2015 8:20 AM CST Per patient, placed letter at front end specialist for patient roll picker Marianne Chavo CAMPOS (AAMO) 04/27/2015 8:21 AM ING MACHINE OPERATOR GEAR Telephone Encounter - Gina Bautista PA-C - 04/27/2015 8:13 AM MILLING MACHINE OPERATOR GEAR Left Vm for patient, would like to discuss labs results. Gina Bautista PA-C ING MACHINE OPERATOR GEAR documented in this encounter Plan of Treatment Not on filedocumented as of this encounter Visit Diagnoses Not on filedocumented in this encounter Additional Health Concerns Assessment Noted Time PHQ-9 Depression Total Score: 16 04/26/2015 8:54 AM CS T documented as of this encounter Care Teams Advertising Sales Manager Relationship Specialty Start Date End Date Gina Bautista PCP - General Physician Salvage Mechanic 5 09/03/21 [facility] Gina Bautista PCP - Assigned PCP 01/12/15 05/11/18 [facility] [address] [place] [address] Gina Bautista Physician Salvage Mechanic 01/31/15 [facility] Gina Bautista, Assigned PCP 01/12/15 [facility] [address] [place] [address] documented as of this encounter
--- OUTSIDE RECORDS SUMMARY | 2022-01-14 14:54 | XMS_ITS | Encounter Summary ---
:1985 Author Organization [place] Address [address] [place] [address] Care Team Providers Name Role Phone Unavailable Primary Care Provider Unavailable Encounter Details Date Type Department Care Team Description 09/30/[address] [facility] [place] [address] (Wo rk) Social History Tobacco Use Types [...]
--- OUTSIDE RECORDS SUMMARY | 2022-01-14 14:54 | XMS_ITS | Encounter Summary ---
:1985 Author Organization [place] Address [address] [place] [address]. [place] [address] Care Team Providers Name Role Phone Gina Bautista PA-C Primary Care Provider [phone] Gina Bautista PA-C Unavailable Gina Bautista PA-C Unavailable Gina Bautista PA-C Unavailable Reason for Visit Reason Comments Urgent Care URI Colds x3-4- facial pain and pressure, sinus pressure, MAK, achy lymphnofe, L ear pain- unable to hear f rom L ear. Encounter Details Date Type Department Care Team Description 02/22/2017 Office Visit [facility] Johny Puga, Acute sinusitis with Urgent Care Ferny gage MD symptoms greater than [address] [address] [address] [address] Jason 10 days (Primary Dx) [place] [address] [phone] Social History Tobacco Use Types Packs/Day Years Used Date Smoking Tobacco: Never Smokeless Tobacco: Never Alcohol Use Standard Drinks/Week Comments Yes 0 (1 standard drink = 0.6 oz pure alcoho l) Sex Assigned at Date Recorded Not on file documented as of this encounter Last Filed Vital Signs Vital Sign Reading Time Taken Comments Blood Pressure 108/62 02/22/2017 11:59 AM MANAGER KNOWLEDGE Pulse 61 02/22/2017 11:59 AM MANAGER KNOWLEDGE Temperature 36.7 ??C (98.1 ??F) 02/22/2017 11:59 AM MANAGER KNOWLEDGE Respiratory Rate - - Oxygen Saturation 100% 02/22/2017 11:59 AM MANAGER KNOWLEDGE Inhaled Oxygen Concentration - - Weight - [...] have suggested that the patient Push fluids. GER KNOWLEDGE documented in this encounter Nursing Notes Nury [...] Medication Reconciliation: complete Nury Nation CMA (AASANDRA) GER KNOWLEDGE documented in this encounter Plan of Treatment Not on filedocumented as of this encounter Visit Diagnoses Diagnosis Acute sinusitis with symptoms greater th an 10 days - Primary Acute sinusitis, unspecified documented in this encounter Additional Health Concerns Assessment Noted Time PHQ-9 Depression Total Score: 9 02/19/2017 2:07 PM MANAGER KNOWLEDGE documented as of this encounter Care Teams Medical Auditor Relationship Specialty Start Date End Date Gina Bautista, PCP - General Physician Manager Of Case 5 09/03/21 PA-C Gina Bautista PCP - Assigned PCP 01/12/15 05/11/18 PA-C [facility] [address] [place] [address] Gina Bautista, Physician Manager Of Case 01/31/15 PA-C Gina Bautista, Assigned PCP 01/12/15 PA-C [facility] [address] [place] [address] documented as of this encounter
--- OUTSIDE RECORDS SUMMARY | 2022-01-14 14:54 | XMS_ITS | Encounter Summary ---
:1985 Author Organization [place] Address [facility] [place] [address] Care Team Providers Name Role Phone Gina Bautista PA-C Primary Care Provider Gina Bautista PA-C Unavailable Gina Bautista PA-C Unavailable Gina Bautista PA-C Unavailable Reason for Visit Reason Comments Cough x 3-4 days Derm Problem x 1 day Encounter Details Date Type Department Care Team Description 01/31/2015 Office Visit [facility] Gina Bautista litis and abscess of leg (Primary Dx); [facility] [place] PA-C Upper respiratory tract infection, unspe cified upper respiratory infection [address] [address] [place], [place] [address] [address] [place] [phone] [address] Social History Tobacco Use Types Packs/Day Years Used Date Smoking Tobacco: Never Smokeless Tobacco: Never Alcohol Use Standard Drinks/Week Comments Yes 0 (1 standard drink = 0.6 oz pure alcoho l) Sex Assigned at Date Recorded Not on file documented as of this encounter Last Filed Vital Signs Vital Sign Reading Time Taken Comments Blood Pressure 108/56 01/31/2015 3:14 PM FORENSIC DOCUMENT EXAMINER Pulse 82 01/31/2015 3:14 PM FORENSIC DOCUMENT EXAMINER Temperature 36.7 ??C (98.1 ??F) 01/31/2015 3:14 PM FORENSIC DOCUMENT EXAMINER Respiratory Rate 18 01/31/2015 3:14 PM FORENSIC DOCUMENT EXAMINER Oxygen Saturation 99% 01/31/2015 3:14 PM FORENSIC DOCUMENT EXAMINER Inhaled Oxygen Concentration - - Weight 82.4 kg (181 lb 9.6 oz) 01/31/2015 3:14 PM FORENSIC DOCUMENT EXAMINER Height 167.6 cm (5' 6) 01/31/2015 3:14 PM FORENSIC DOCUMENT EXAMINER Body Mass Index 29.31 01/31/2015 3:14 PM FORENSIC DOCUMENT EXAMINER documented in this encounter Progress Notes Gina [...] care. Gina Bautista PA-C [facility] NSIC DOCUMENT EXAMINER documented in this encounter Nursing Notes Monica [...] phone number for results from this visit [phone] Marianne Tony CMA (AAMA) 01/31/2015 3:16 PM NSIC DOCUMENT EXAMINER documented in this encounter Plan of Treatment [...] documented as of this encounter Care Teams Chainstitch Sewing Machine Operator Relationship Specialty Start Date End Date Gina Bautista, PCP - General Physician Supervisor Mattress And Boxsprings 5 09/03/21 [facility] Gina Bautista, PCP - Assigned PCP 01/12/15 05/11/18 [facility] [address] [place] [address] Gina Bautista, Physician Supervisor Mattress And Boxsprings 01/31/15 [facility] Gina Bautista, Assigned PCP 01/12/15 [facility] [address] [place] [address] documented as of this encounter
--- OUTSIDE RECORDS SUMMARY | 2022-01-14 14:54 | XMS_ITS | Encounter Summary ---
:1985 Author Organization [place] Address [facility] [place] [address] Care Team Providers Name Role Phone Gina Bautista PA-C Primary Care Provider Gina Bautista PA-C Unavailable Gina Bautista PA-C Unavailable Gina Bautista PA-C Unavailable Reason for Visit Reason Comments Sinus Problem Encounter Details Date Type Department Care Team Description 07/27/2015 Office Visit [facility] Gina Bautista Acute recurrent Clinic Jigna Vance PA-C maxillary sinusitis [address] [facility] (Primary Dx) [place], [place] [address] [address] [place], [place] [phone] [address] Social History Tobacco Use Types Packs/Day Years [...] She has been treated twice by in [place] with Amoxicillin without relief No fever, very [...] the plan of care. Gina Bautista PA-C [facility] documented in this encounter Nursing Notes Monica [...] phone number for results from this visit [phone] OK to leave message Marianne Tony CMA [...] documented as of this encounter Care Teams Envelope Sealing Machine Operator Relationship Specialty Start Date End Date Gina Bautista PCP - General Physician Validation Technician 5 09/03/21 [facility] Gina Bautista PCP - Assigned PCP 01/12/15 05/11/18 [facility] [address] [place] [address] Gina Bautista, Physician Validation Technician 01/31/15 [facility] Gina Bautista, Assigned PCP 01/12/15 [facility] [address] [place], [place] [id number] documented as of this encounter
--- OUTSIDE RECORDS SUMMARY | 2022-01-14 14:54 | XMS_ITS | Encounter Summary ---
:1985 Author Organization [facility] Address [address] [place] [address]. [place] [address] Care Team Providers Name Role Phone Gina Palumbo PA-C Primary Care Provider Gina Palumbo PA-C Unavailable Gina Palumbo PA-C Unavailable Gina Palumbo PA-C Unavailable Reason for Visit Reason Comments Physical Annual Physical with PAP Encounter Details Date Type Department Care Team Description 04/25/[address] 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; [place], [facility] Adjustment disorder with depressed mood; [phone] [address] [facility] [address] Iron deficiency anemia, unspecified iron deficiency [phone] [place] [address] Social History Tobacco Use Types Packs/Day Years Used Date Smoking Tobacco: Never Smokeless Tobacco: Never Alcohol Use Standard Drinks/Week Comments Yes 0 (1 standard drink = 0.6 oz pure alcoho l) Sex Assigned at Date Recorded Not on file documented as of this encounter Last Filed Vital Signs Vital Sign Reading Time Taken Comments Blood Pressure 126/62 04/25/2015 1:02 PM ANVILSMITH Pulse 80 04/25/2015 1:02 PM ANVILSMITH Temperature 36.6 ??C (97.9 ??F) 04/25/2015 1:02 PM ANVILSMITH Respiratory Rate 16 04/25/2015 1:02 PM ANVILSMITH Oxygen Saturation 100% 04/25/2015 1:02 PM ANVILSMITH Inhaled Oxygen Concentration - - Weight 82.1 kg (181 lb) 04/25/2015 1:02 PM ANVILSMITH Height 167 cm (5' 5.75) 04/25/2015 1:02 PM ANVILSMITH Body Mass Index 29.44 04/25/2015 1:02 PM ANVILSMITH documented in this encounter Patient Instructions Patient [...] months for an exam and cleaning. ?? LSMITH documented in this encounter Progress Notes Gina [...] Maxwell and colleagues,with an educational kenia from [employer].) 04/25/2015 01/31/2015 Q1: Little interest or pleasure [...] LDL, TRIG, CHOLHDLRATIO, NHDL in the last 21610 hours. Reviewed orders with patient. Reviewed health maintenance and updated orders accordingly - Yes Mammo Decision Support: Mammogram not appropriate for this patient based on age. Last Mammo:No results found. History of abnormal Pap smear: NO - age 21-29 PAP every 3 years recommended All Histories reviewed and updated in [facility]. 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 Patient Active [...] UA reflex to Microscopic and Culture Discussed Mrajan, will see how she is feeling once [...] Preventive Guidelines Dietary Guidelines for Americans, 2010 [employer] My[employer]ate Gina Palumbo PA-C [facility] LSMITH documented in this encounter Nursing Notes Monica [...] phone number for results from this visit [phone] OK to leave message Marianne Tony CMA (AAMA) 04/25/2015 1:03 PM LSMITH documented in this encounter Miscellaneous Notes Addendum Note - Gina Palumbo PA-C - 04/27/2015 8:25 AM ANVILSMITH Addended by: GINA PALUMBO on: 04/27/2015 08:25 AM Modules accepted: Orders LSMITH documented in this encounter Plan of Treatment Not on filedocumented as of this encounter Procedures Procedure Name Priority Date/Time Associated Comments Diagnosis UA MACROSCOPIC WITH Routine 04/25/2015 12:44 Encounter for Res ults for this REFLEX TO MICROSCOPIC PM ANVILSMITH routine adult proce dure are in AND CULTURE physical exam with the resul ts abnormal findings section. documented in this encounter Results (ABNORMAL) Iron and iron binding capacity (04/27/2015 11:50 AM ANVILSMITH) Patholo gist Method Time Signature Iron 13 (L) 35 - 180 [facility] ug/dL [facility] Iron Binding 619 (H) 240 - 430 [place] Cap ug/dL [facility] Iron Saturation 2 (L) 15 - 46 % [place] Index CLINICS [facility] Specimen Anatomical Collection Method Collection Time Receive d Time (Source) Location / / Volume Laterality Blood specimen 04/27/2015 11:50 6 (specimen) AM ANVILSMITH 11:51 AM ANVILSMITH Gina Palumbo PA-C LAB - BLOOD ORDERABLES Performing Organization Address City/[facility]/ZIP Code Phon e Number [facility] [address] [place] [phone] (ABNORMAL) Ferritin (04/27/2015 11:50 AM ANVILSMITH) P athologist Signature Ferritin 2 (L) 12 - 150 [facility] ng/mL [facility] Specimen Anatomical Collection Method Collection Time Receive d Time (Source) Location / / Volume Laterality Blood specimen 04/27/2015 11:50 6 (specimen) AM ANVILSMITH 11:51 AM ANVILSMITH Gina Palumbo PA-C LAB - BLOOD ORDERABLES Performing Organization Address City/[facility]/ZIP Code Phon e Number [facility] [address] [place] [phone] (ABNORMAL) TSH with free T4 reflex (04/26/2015 8:26 AM ANVILSMITH) P athologist Signature TSH 7.92 (H) 0.40 - [facility] 4.00 mU/L [facility] Specimen Anatomical Collection Method Collection Time Receive d Time (Source) Location / / Volume Laterality Blood specimen 04/26/2015 8:26 AM 016 8:27 (specimen) ANVILSMITH AM ANVILSMITH Gina Palumbo PA-C LAB - BLOOD ORDERABLES Performing Organization Address City/[facility]/ZIP Code Phon e Number [facility] [address] [place] [phone] (ABNORMAL) Comprehensive metabolic panel (04/26/2015 8:26 AM ANVILSMITH) [facility] gist Method Time Signature Sodium 140 133 - 144 [place] mmol/L [facility] Potassium 4.1 3.4 - 5.3 [place] mmol/L [facility] Chloride 109 94 - 109 [place] mmol/L [facility] Carbon Dioxide 23 20 - 32 [place] mmol/L [facility] Anion Gap 8 3 - 14 [place] mmol/L [facility] Glucose 87 70 - 99 [place] mg/dL [facility] Urea Nitrogen 10 7 - 30 [place] mg/dL [facility] Creatinine 0.74 0.52 - [place] 1.04 [facility] mg/dL [facility] GFR Estimate >90 >60 [place] Non GFR Calc mL/min/1. CLINICS 7m2 [facility] GFR Estimate If >90 >60 [place] Black GFR Calc mL/min/1. CLIN ICS 7m2 [facility] Calcium 8.3 (L) 8.5 - [place] 10.1 [facility] mg/dL [facility] Bilirubin Total 0.5 0.2 - 1.3 [place] mg/dL [facility] Albumin 3.8 3.4 - 5.0 [place] g/dL [facility] Protein Total 7.4 6.8 - 8.8 [place] g/dL [facility] Alkaline 71 40 - 150 [place] Phosphatase U/L [facility] ALT 19 0 - 50 [place] U/L [facility] AST 14 0 - 45 [place] U/L [facility] Specimen Anatomical Collection Method Collection Time Receive d Time (Source) Location / / Volume Laterality Blood specimen 04/26/2015 8:26 AM 016 8:27 (specimen) ANVILSMITH AM ANVILSMITH Gina Palumbo PA-C LAB - BLOOD ORDERABLES Performing Organization Address City/State/ZIP Code Phon e Number [facility] [address] [place] [address] (ABNORMAL) CBC with platelets (04/26/2015 8:26 AM ANVILSMITH) athologist Signature WBC 4.7 4.0 - 11.0 [place] 10e9/L [facility] RBC Count 4.41 3.8 - 5.2 [place] 10e12/L [facility] Hemoglobin 8.4 (L) 11.7 - 15.7 [place] g/dL [facility] Comment: Results confirmed by repeat mónica t Hematocrit 29.1 (L) 35.0 - 47.0 % [facility] S [place] MCV 66 (L) 78 - 100 fl [facility] [place] MCH 19.0 (L) 26.5 - 33.0 pg [facility] [place] MCHC 28.9 (L) 31.5 - 36.5 g/dL [place] [facility] Comment: Results confirmed by repeat mónica t RDW 16.7 (H) 10.0 - 15.0 % [facility] Platelet Count 321 150 - 450 10e9/L [facility] Specimen Anatomical Collection Method Collection Time Receive d Time (Source) Location / / Volume Laterality Blood specimen 04/26/2015 8:26 AM 016 8:27 (specimen) ANVILSMITH AM ANVILSMITH Gina Palumbo PA-C LAB - BLOOD ORDERABLES Performing Organization Address City/State/ZIP Code Phon e Number [facility] [id number] [place] [phone] LIPID REFLEX TO DIRECT LDL PANEL (04/26/2015 8:26 AM ANVILSMITH) athologist Signature Cholesterol 109 <200 mg/dL [facility] Triglycerides 70 <150 mg/dL [facility] Comment: Fasting specimen HDL Cholesterol 54 >49 mg/dL [place] [facility] CS [facility] LDL Cholesterol Calculated 41 <100 mg/dL FA [facility] [place] Comment: Desirable: <100 mg/dl Non HDL Cholesterol 55 <130 mg/dL [facility] Specimen Anatomical Collection Method Collection Time Receive d Time (Source) Location / / Volume Laterality Blood specimen 04/26/2015 8:26 AM 016 8:27 (specimen) ANVILSMITH AM ANVILSMITH Gina Palumbo PA-C LAB - BLOOD ORDERABLES Performing Organization Address City/[facility]/ZIP Code Phon e Number [facility] [address] [place] [address] UA reflex to Microscopic and Culture (04/25/2015 12:44 PM ANVILSMITH) [facility] Method Time Signature Color Urine Yellow [place] [facility] Appearance Urine Clear [place] [facility] Glucose Urine Negative NEG mg/dL [place] [facility] Bilirubin Urine Negative NEG [place] [facility] Ketones Urine Negative NEG mg/dL [place] [facility] Specific [place] 1.025 1.003 - [place] Urine 1.035 [facility] Blood Urine Negative NEG [place] [facility] pH Urine 5.5 5.0 - 7.0 [place] pH [facility] Protein Albumin Negative NEG mg/dL [place] Urine [facility] Urobilinogen 0.2 0.2 - 1.0 [place] Urine EU/dL [facility] Nitrite Urine Negative NEG [facility] [place] Leukocyte Negative NEG [place] Esterase Urine [facility] [place] Source Midstream [place] Urine [facility] Specimen Anatomical Collection Method Collection Time Receive d Time (Source) Location / / Volume Laterality Urine specimen 04/25/2015 12:44 6 (specimen) PM ANVILSMITH 12:45 PM ANVILSMITH Gina Palumbo PA-C LAB - URINE ORDERABLES Performing Organization Address [facility]/ZIP Code Phon e Number [facility] [address] [place], [place] [address] documented in this encounter [...] as of this encounter Care Teams Digital Marketer Relationship Specialty Start Date End Date Gina Palumbo PCP - General Physician Internal Security Manager 5 09/03/21 DOLORES Gina Palumbo PCP - Assigned PCP 01/12/15 05/11/18 PA-C [facility] [address] [place] [address] Gina Palumbo, Physician Internal Security Manager 01/31/15 DOLORES Gina Palumbo, Assigned PCP 01/12/15 PA-C [facility] [address] [place] [address] documented as of this encounter
--- OUTSIDE RECORDS SUMMARY | 2022-01-14 14:54 | XMS_ITS | Encounter Summary ---
:1985 Author Organization [facility] Address [address] [place] [address] Care Team Providers Name Role Phone Unavailable Primary Care Provider Unavailable Encounter Details Date Type Department Care Team Description 05/23/2005 Emergency room [facility] [address] [place] [address] (Wo rk) Social History Tobacco Use Types Packs/Day Years Used Date Smoking Tobacco: Never Assessed Sex Assigned at Date Recorded Not on file documented as of this encounter Progress Notes Interface, Research Associate - 05/24/2005 10:20 PM CEO NA FINAL CHIEF COMPLAINT: Left lower quadrant pain. [...] home. Tylenol No. 3 for discomfort, Motrin [id number]. Follow up with primary care physician in 3-5 days, clear liquids x8 hours and advance diet as tolerated. Return to emergency department if symptoms get worse. Electronically signed on 05/24/2005 22:19 by GLORY KRAFT MD [place]: [id number]#[id number] Name: CARLEY CHAN MRN: [id number] Account: [id number] : 1985 Visit Date: 05/23/2005 Document: [id number] cc: [facility] NA Interface, Research Associate - 05/24/2005 3:26 PM CEO NA PRELIMINARY CHIEF COMPLAINT: Left lower quadrant pain. [...] home. Tylenol No. 3 for discomfort, Motrin [id number]. Follow up with primary care physician in 3-5 days, clear liquids x8 hours and advance diet as tolerated. Return to emergency department if symptoms get worse. GLORY KRAFT MD [place]: [facility]#[id number] Name: CARLEY CHAN Account: [id number] : 1985 Visit Date: 05/23/2005 Document: [id number] cc: [facility] NA documented in this encounter Plan of Treatment Not on filedocumented as of this encounter Visit Diagnoses Not on filedocumented in this encounter
--- OUTSIDE RECORDS SUMMARY | 2022-01-14 14:54 | XMS_ITS | Encounter Summary ---
:1985 Author Organization [facility] Address [address] [place] [address] Care Team Providers Name Role Phone Gina Bautista PA-C Primary Care Provider [phone] OestrGina daniels PA-C Unavailable Gina Bautista PA-C Unavailable [phone] Gina Bautista PA-C Unavailable Encounter Details Date Type Department Care Team Description 04/27/2015 Orders Only [facility] Iro n deficiency anemia, [place] [facility] unspecified iron [address] [place] [phone] Social History Tobacco Use Types Packs/Day [...] deficiency Resu lts for this BINDING CAPACITY SILO TENDER anemia, unspecified proc edure are in iron deficiency the results section. FERRITIN Routine 04/27/2015 11:50 AM Iron deficiency Resul ts for this SILO TENDER anemia, unspecified procedur e are in iron deficiency the results section. documented in this encounter Results (ABNORMAL) Iron and iron binding capacity (04/27/2015 11:50 AM SILO TENDER) Patholo gist Method Time Signature Iron 13 (L) 35 - 180 [facility] ug/dL [facility] Iron Binding 619 (H) 240 - 430 [place] Cap ug/dL [facility] Iron Saturation 2 (L) 15 - 46 % [place] Index [facility]IN[facility] Specimen Anatomical Collection Method Collection Time Receive d Time (Source) Location / / Volume Laterality Blood specimen 04/27/2015 11:50 6 (specimen) AM SILO TENDER 11:51 AM SILO TENDER Gina Bautista PA-C LAB - BLOOD ORDERABLES Performing Organization Address City/[facility]/ZIP Code Phon e Number [facility] [address] [address] (ABNORMAL) Ferritin (04/27/2015 11:50 AM SILO TENDER) P athologist Signature Ferritin 2 (L) 12 - 150 [facility] ng/mL [facility] Specimen Anatomical Collection Method Collection Time Receive d Time (Source) Location / / Volume Laterality Blood specimen 04/27/2015 11:50 6 (specimen) AM SILO TENDER 11:51 AM SILO TENDER Gnia Bautista PA-C LAB - BLOOD ORDERABLES Performing Organization Address City/[facility]/ZIP Code Phon e Number [facility] [address] [address] documented in this encounter Visit Diagnoses Diagnosis Iron deficiency anemia, unspecified iron deficiency documented in this encounter Additional Health Concerns Assessment Noted Time PHQ-9 Depression Total Score: 16 04/26/2015 8:54 AM CS T documented as of this encounter Care Teams Pegger Dobby Looms Relationship Specialty Start Date End Date Gina Bautista PCP - General Physician Panel Gluer 5 09/03/21 DOLORES Gina Bautista PCP - Assigned PCP 01/12/15 05/11/18 DOLORES [facility] [address] [place] [address] Gina Bautista, Physician Panel Gluer 01/31/15 DOLORES Gina Bautista, Assigned PCP 01/12/15 DOLORES [facility] [address] [place] [address] documented as of this encounter
--- OUTSIDE RECORDS SUMMARY | 2022-01-14 14:54 | XMS_ITS | Encounter Summary ---
:1985 Author Organization [place] Address [address] [place] [address]. [place] [address] Care Team Providers Name Role Phone Gina Palumbo PA-C Primary Care Provider Gina Palumbo PA-C Unavailable Gina Palumbo PA-C Unavailable Gina Palumbo PA-C Unavailable Reason for Referral Consultation - Closed Specialty Diagnoses / Procedures Referred By Contact Refer red To Contact Diagnoses Low hemoglobin S/P gastric bypass Vitamin B 12 deficiency Gina Palumbo [facility] DOLORES Vance H[facility]OLOGY [facility] [address] [place] [address] [place] [address] [place] [address] Phone: [phone] Fax: Referral ID Status Reason Start Date Expiration Date Visits Requ ested Visits Authorized [id number] Closed 12/24/2016 12/24/2017 1 1 COMPACTOR DRIVER - Closed Specialty Diagnoses / Procedures Referred By Contact Refer red To Contact Diagnoses Family planning counseling IUD check up Gina Palumbo [facility] DOLORES Vance [facility] [address] [facility] [address] [place] [address] [place] [address] [place] [address] Fax: Referral ID Status Reason Start Date Expiration Date Visits Requ ested Visits Authorized [id number] Closed 12/19/2016 12/19/2017 1 1 Reason for Visit Reason Comments Physical Flu Shot Encounter Details Date Type Department Care Team Description 12/19/2016 Office Visit [facility] Michele, Routine ge neral medical examination at a health care facility (Primary Dx); [facility] Gina Vance, 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 documented in this encounter Progress Notes Gina Palumbo PA-C - 12/19/2016 3:09 PM CDT [...] syndrome? No Form completed by patient TAT Gina Palumbo PA-C - 12/19/2016 2:50 PM CDT SUBJECTIVE: CC: Carley Phelan is an 31 year old woman [...] will refer to OB for removal. - COMPACTOR DRIVER REFERRAL 9. Family planning counseling Patient interested in future , was high risk in past, had 4 miscarriages. Will refer to COMPACTOR DRIVER to discuss future conception. - COMPACTOR DRIVER REFERRAL 10. Need for prophylactic vaccination and inoculation against influenza - FLU VAC, SPLIT VIRUS IM > 3 YO (QUADRIVALENT) [11937] - Vaccine Administration, Initial [80642] COUNSELING: Reviewed preventive health counseling, as reflected [...] planning, low thyroid, hemoglobin and mood issues. Gina Palumbo PA-C [facility] Answers for HPI/ROS submitted by [...] Addendum Note - Gina Palumbo PA-C - 12/24/2016 7:17 AM CDT Addended by: GINA PALUMBO on: 12/24/2016 07:17 AM Modules accepted: Orders Addendum Note - Gina Palumbo PA-C - 12/22/2016 1:58 PM CDT Addended by: GINA PALUMBO on: 12/22/2016 01:58 PM Modules accepted: Orders documented in this encounter Plan of Treatment Scheduled Referrals Name Type Priority Associated Diagnoses Order S chedule COMPACTOR DRIVER REFERRAL Referral Routine Family planning Ordered: 12/19/2016 [...] or this PM CDT medical examination at [facility] are in a health care [...] or this PM CDT medical examination at [facility] are in a health care facility the r esults section. COMPREHENSIVE Routine 12/19/2016 3:33 Hypothyroidism due to Re sults for this METABOLIC PANEL PM CDT acquired atrophy of proce dure are in thyroid the results Overweight section. [...] T4 reflex FUTURE 2mo (04/10/2017 2:35 PM [employer]LECT[employer]) athologist Signature TSH 10.56 (H) 0.40 - 04/12/2017 [facility] 4.00 mU/L 1:28 PM [facility] Specimen Anatomical Collection Method Collection Time Receive d Time (Source) Location / / Volume Laterality Blood specimen 04/10/2017 2:35 PM 018 2:36 (specimen) [employer] PM [employer] Gina Palumbo PA-C LAB - BLOOD ORDERABLES Performing Organization Address City/State/ZIP Code Phon e Number [facility] [address] [place] [address] (ABNORMAL) Vitamin D Deficiency (04/10/2017 2:35 PM [employer]) athologist Signature Vitamin D 13 (L) 20 - 75 04/11/2017 [facility] Deficiency ug/L 11:46 AM [employer] [facility] [place] Comment: Season, race, dietary intake, and treatm ent affect the concentration of 03-ijyngzz-Tbpycyu D. Values may decreas e during winter [...] specimen 04/10/2017 2:35 PM 018 2:36 (specimen) [employer] PM [employer] Gina Palumbo PA-C LAB - BLOOD ORDERABLES Performing Organization Address City/State/ZIP Code Phon e Number [facility] [address] [place] [address] [place] T4 free (12/19/2016 3:33 PM CDT) P athologist Signature T4 Free 1.00 0.76 - 1.46 12/20/2016 [facility] ng/dL 1:20 PM CDT [facility] Specimen Anatomical Collection Method Collection Time Receive d Time (Source) Location / / Volume Laterality 12/19/2016 3:33 PM 7 3:34 CDT PM CDT Gina Palumbo PA-C LAB - BLOOD ORDERABLES Performing Organization Address City/[facility]/ZIP Code Phon e Number [facility] [address] [place] [address] WBC Differential (12/19/2016 3:33 PM CDT) [facility] gist Method Time Signature Diff Method Automated 12/19/2016 [place] Method 9:06 PM [facility] % Neutrophils 64.0 % 12/19/2016 [facility] 9:06 PM [facility] % Lymphocytes 25.2 % 12/19/2016 [facility] 9:06 PM [facility] % Monocytes 7.7 % 12/19/2016 [facility] 9:06 PM [facility] % Eosinophils 2.3 % 12/19/2016 [facility] 9:06 PM [facility] % Basophils 0.5 % 12/19/2016 [facility] 9:06 PM [facility] % Immature 0.3 % 12/19/2016 [facility] Granulocytes 9:06 PM [facility] Nucleated RBCs 0 0 /100 12/19/2016 [facility] 9:06 PM [facility] Absolute 4.2 1.6 - 8.3 12/19/2016 [facility] Neutrophil 10e9/L 9:06 PM [facility] Absolute 1.7 0.8 - 5.3 12/19/2016 [facility] Lymphocytes 10e9/L 9:06 PM [facility] Absolute 0.5 0.0 - 1.3 12/19/2016 [facility] Monocytes 10e9/L 9:06 PM [facility] Absolute 0.2 0.0 - 0.7 12/19/2016 [facility] Eosinophils 10e9/L 9:06 PM [facility] Absolute 0.0 0.0 - 0.2 12/19/2016 [facility] Basophils 10e9/L 9:06 PM [facility] Abs Immature 0.0 0 - 0.4 12/19/2016 [facility] Granulocytes 10e9/L 9:06 PM [facility] Absolute 0.0 12/19/2016 [facility] Nucleated RBC 9:06 PM [facility] Anisocytosis Slight 12/19/2016 [facility] 9:06 PM [facility] Ovalocytes Slight 12/19/2016 [facility] 9:06 PM [facility] Microcytes Present 12/19/2016 [facility] 9:06 PM [facility] Platelet Normal 12/19/2016 [facility] Estimate 9:06 PM [facility] Specimen Anatomical Collection Method Collection Time Receive d Time (Source) Location / / Volume Laterality 12/19/2016 3:33 PM 7 4:07 CDT PM CDT Gina Palumbo PA-C LAB - BLOOD ORDERABLES Performing Organization Address City/State/ZIP Code Phon e Number [place] [address] [address] [place] [address] [facility] [address] [phone] Reticulocyte Count (12/19/2016 3:33 PM CDT) P athologist Signature % Retic 1.1 0.5 - 2.0 12/19/2016 [place] % 7:25 PM [facility] Absolute Retic 43.0 25 - 95 12/19/2016 [facility] 10e9/L 7:25 PM [facility] Specimen Anatomical Collection Method Collection Time Receive d Time (Source) Location / / Volume Laterality Blood specimen 12/19/2016 3:33 PM 017 4:07 (specimen) CDT PM CDT Gina Palumbo PA-C LAB - BLOOD ORDERABLES Performing Organization Address City/State/ZIP Code Phon e Number [facility] [address] [place], [place] [address] [facility] [address] [phone] Blood Morphology Pathologist Review (12/19/2016 3:33 PM CDT) Component Value Ref Test Analysis Performed Pathologis t Range Method Time At Signature Copath Patient Name: CARLEY PHELAN Report MR#: [id number] Specimen #: [id number] Collected: 12/19/2016 Received: 12/22/2016 Reported: 12/22/2016 10:01 Ordering Phy(s): GINA PALUMBO For improved result formatting, select 'View [...] 12-22-2016 @ 10:01 AM). CPT Codes: A: 71826-HBLG TESTING LAB LOCATION: [facility] [address] [place], [place] ??[address] COLLECTION SITE: Client: ??[facility] Location: ??[facility] (R) Specimen Anatomical Collection Method Collection Time Receive d Time (Source) Location / / Volume Laterality Blood specimen 12/19/2016 3:33 PM 017 7:55 (specimen) CDT AM CDT Gina Palumbo PA-C LAB - BEAKER AP Performing Organization Address City/State/ZIP Code Phon e Number [place] (ABNORMAL) Vitamin B12 (12/19/2016 3:33 PM CDT) athologist Signature Vitamin B12 107 (L) 193 - 986 12/19/2016 [facility] pg/mL 10:23 PM CDT [facility] Specimen Anatomical Collection Method Collection Time Receive d Time (Source) Location / / Volume Laterality Blood specimen 12/19/2016 3:33 PM 017 3:34 (specimen) CDT PM CDT Gina Palumbo PA-C LAB - BLOOD ORDERABLES Performing Organization Address City/State/ZIP Code Phon e Number [phone] [place] [address] (ABNORMAL) Vitamin D Deficiency (12/19/2016 3:33 PM CDT) athologist Signature Vitamin D 17 (L) 20 - 75 12/21/2016 [facility] Deficiency ug/L 3:23 PM CDT [facility] Comment: Season, race, dietary intake, and treatm ent affect the concentration of 12-titcihd-Ujczfbr D. Values may decreas e during winter [...] Volume Laterality Blood specimen 12/19/2016 3:33 PM 10/13/2 017 3:34 (specimen) CDT PM CDT Gina Palumbo PA-C LAB - BLOOD ORDERABLES Performing Organization Address City/State/ZIP Code Phon e Number [facility] [address] [place], [place] [phone] [place] [address] (ABNORMAL) Comprehensive metabolic panel (12/19/2016 3:33 PM CDT) [facility] gist Method Time Signature Sodium 140 133 - 144 12/20/2016 [facility] mmol/L 12:54 PM CDT [facility] Potassium 4.2 3.4 - 5.3 12/20/2016 [facility] mmol/L 12:54 PM CDT [facility] Chloride 110 (H) 94 - 109 12/20/2016 [facility] mmol/L 12:54 PM CDT [facility] Carbon Dioxide 21 20 - 32 12/20/2016 [facility] mmol/L 12:54 PM CDT [facility] Anion Gap 9 3 - 14 12/20/2016 [place] mmol/L 12:54 PM CDT [facility] Glucose 85 70 - 99 12/20/2016 [facility] mg/dL 12:54 PM CDT [facility] Urea Nitrogen 9 7 - 30 12/20/2016 [facility] mg/dL 12:54 PM CDT [facility] Creatinine 0.75 0.52 - 12/20/2016 [facility] 1.04 mg/dL 12:54 PM CDT [facility] GFR Estimate >90 >60 12/20/2016 [place] mL/min/1.7 12:54 PM CDT CLINICS m2 [facility] Comment: Non GFR Calc GFR Estimate If >90 >60 mL/min/1.7m2 12/20/2016 12:[address] [facility] Black T [facility] Comment: GFR Calc Calcium 8.7 8.5 - 10.1 12/20/2016 12:54 PM [facility] mg/dL CDT [facility] Bilirubin Total 0.4 0.2 - 1.3 mg/dL 12/20/2016 12:54 P M [facility] Albumin 3.9 3.4 - 5.0 g/dL 12/20/2016 12:54 PM [facility] IEW [facility] Protein Total 7.6 6.8 - 8.8 g/dL 12/20/2016 12:54 PM [facility] Alkaline Phosphatase 61 40 - 150 U/L 12/20/2016 1:02 PM [facility] ALT 20 0 - 50 U/L 12/20/2016 12:54 PM [facility] AST 15 0 - 45 U/L 12/20/2016 12:54 PM [facility] Specimen Anatomical Collection Method Collection Time Receive d Time (Source) Location / / Volume Laterality Blood specimen 12/19/2016 3:33 PM 017 3:34 (specimen) CDT PM CDT Gina Palumbo PA-C LAB - BLOOD ORDERABLES Performing Organization Address City/[facility]/ZIP Code Phon e Number [facility] [address] [place] [address] (ABNORMAL) TSH with free T4 reflex (12/19/2016 3:33 PM CDT) P athologist Signature TSH 8.78 (H) 0.40 - 12/20/2016 [facility] 4.00 mU/L 1:02 PM T [facility] Specimen Anatomical Collection Method Collection Time Receive d Time (Source) Location / / Volume Laterality Blood specimen 12/19/2016 3:33 PM 017 3:34 (specimen) CDT PM CDT Gina Palumbo PA-C LAB - BLOOD ORDERABLES Performing Organization Address City/[facility]/ZIP Code Phon e Number [facility] [address] [place], [place] [phone] (ABNORMAL) Iron and iron binding capacity (12/19/2016 3:33 PM CDT) Patholo gist Method Time Signature Iron 10 (L) 35 - 180 12/20/2016 [place] ug/dL 12:54 PM CDT [facility] Iron Binding 528 (H) 240 - 430 12/20/2016 [place] Cap ug/dL 12:54 PM CDT [facility] Iron Saturation 2 (L) 15 - 46 % 12/20/2016 [place] Index 12:54 PM CDT [facility] Specimen Anatomical Collection Method Collection Time Receive d Time (Source) Location / / Volume Laterality Blood specimen 12/19/2016 3:33 PM 017 3:34 (specimen) CDT PM CDT Gina Palumbo PA-C LAB - BLOOD ORDERABLES Performing Organization Address City/[facility]/ZIP Code Phon e Number [facility] [address] [place] [address] (ABNORMAL) Ferritin (12/19/2016 3:33 PM CDT) athologist Signature Ferritin 2 (L) 12 - 150 12/20/2016 [facility] ng/mL 12:55 PM CDT [facility] Specimen Anatomical Collection Method Collection Time Receive d Time (Source) Location / / Volume Laterality Blood specimen 12/19/2016 3:33 PM 017 3:34 (specimen) CDT PM CDT Gina Palumbo PA-C LAB - BLOOD ORDERABLES Performing Organization Address City/[facility]/ZIP Code Phon e Number [facility] [address], [place] [address] (ABNORMAL) CBC with platelets (12/19/2016 3:33 PM CDT) athologist Signature WBC 6.4 4.0 - 11.0 12/19/2016 [facility] 10e9/L 3:43 PM CDT [facility] RBC Count 3.97 3.8 - 5.2 12/19/2016 [place] 10e12/L 3:43 PM CDT [facility] Hemoglobin 7.2 (L) 11.7 - 15.7 12/19/2016 [place] g/dL 3:43 PM CDT [facility] Comment: Critical Value called to and read back b y TO GINA BRYAN ON12/19/16 1540 DA Hematocrit 25.5 (L) 35.0 - 47.0 % 12/19/2016 3:43 PM CDT [facility] MCV 64 (L) 78 - 100 fl 12/19/2016 3:43 PM CDT [facility] IEW [facility] MCH 18.1 (L) 26.5 - 33.0 pg 12/19/2016 3:43 PM CDT [facility] MCHC 28.2 (L) 31.5 - 36.5 g/dL 12/19/2016 3:[address] [facility] Comment: Results confirmed by repeat mónica t RDW 17.4 (H) 10.0 - 15.0 % 12/19/2016 3:43 PM [facility] CDT [place] Platelet Count 375 150 - 450 10e9/L 12/19/2016 3:[address] [facility] CDT [place] Specimen Anatomical Collection Method Collection Time Receive d Time (Source) Location / / Volume Laterality Blood specimen 12/19/2016 3:33 PM 017 3:34 (specimen) CDT PM CDT Gina Palumbo PA-C LAB - BLOOD ORDERABLES Performing Organization Address City/State/ZIP Code Phon e Number [facility] [address] [place] [address] Pap imaged thin layer screen reflex to HPV if ASCUS - recommend age 25 - 29 (12/19/2016 3:05 PM CDT) Component Value Ref Test Analysis Performed At [facility] Range Method Time Signature PAP NIL COPATH Copath Report COPATH Patient Name: CARLEY PHELAN MR#: [id number] Specimen #: [id number] Collected: 12/19/2016 Received: 12/22/2016 Reported: 12/23/2016 13:10 Ordering Phy(s): GINA PALUMBO For improved result formatting, select 'View [...] rcinomas or other cancers. TESTING LAB LOCATION: [address] ??[phone] COLLECTION SITE: Client: ??[facility] Location: [facility] (R) Specimen (Source) Anatomical Collection Method Collection Time Re ceived Time Location / / Volume Laterality Cytologic 12/19/2016 3:05 12/22/2016 material PM CDT 10:43 AM CDT (specimen) Gina Palumbo PA-C LAB - [facility] Performing Organization Address City/State/ZIP Code Phon e [...] documented as of this encounter Care Teams Shell[employer] Farm[employer] Supervisor Relationship Specialty Start Date End Date Gina Palumbo, PCP - General Physician Corporate Analyst 5 09/03/21 [place] Gina Palumbo, PCP - Assigned PCP 01/12/15 05/11/18 PAC [facility] [address] [place] [address] Gina Palumbo, Physician Corporate Analyst 01/31/15 PA-C Gina Palumbo, Assigned PCP 01/12/15 PAC [facility] [address] [place] [address] documented as of this encounter
--- OUTSIDE RECORDS SUMMARY | 2022-01-14 14:54 | XMS_ITS | Encounter Summary ---
:1985 Author Organization [place] Address [address] [place] [address]. [place] [address] Care Team Providers Name Role Phone Gina Bautista PA-C Primary Care Provider [phone] Gina Bautista PA-C Unavailable Gina Bautista PA-C Unavailable Gina Bautista PA-C Unavailable Reason for Visit Reason Onset Date Comments Refill Request 04/14/2017 Encounter Details Date Type Department Care Team Description 04/14/2017 Telephone [facility] Lyle Bautista Refill Request Jigna Vance PA-C [address] [place] [address] [address] [phone] [place], [place] [address] (Wo rk) Social History [...] in 6-8 weeks. Panchito Gandhi CMA (AAMA) RAL CLERK Telephone Encounter - Gina Bautista PA-C - 04/14/2017 12:48 PM GENERAL CLERK Lab orders futured and rx sent to pharmacy. Please notify patient should schedule lab only visit in 6-8 weeks, will check TSH and Vit D. 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 - Primary Vitamin D deficiency Unspecified vitamin D deficiency documented in this encounter Additional Health Concerns Assessment Noted Time PHQ-9 Depression Total Score: 9 02/19/2017 2:07 PM GENERAL CLERK documented as of this encounter Care Teams Corn Sheller Operator Relationship Specialty Start Date End Date Gina Bautista PCP - General Physician Supervisor Shaving And Splitting 5 09/03/21 D[facility] Gina Bautista, PCP - Assigned PCP 01/12/15 05/11/18 [facility] [address] [place] [address] Gina Bautista, Physician Supervisor Shaving And Splitting 01/31/15 [place] Gina Bautista, Assigned PCP 01/12/15 PAC [facility] [address] [place] [address] documented as of this encounter
--- OUTSIDE RECORDS SUMMARY | 2022-01-14 14:54 | XMS_ITS | Encounter Summary ---
:1985 Author Organization [facility] Address [address] [place] [address] Care Team Providers Name Role Phone Unavailable Primary Care Provider Unavailable Encounter Details Date Type Department Care Team Description 05/23/2005 Results Only [facility] Results EMERGENCY PHYSI [facility] [address] [place] [address] (Wo rk) Social History Tobacco Use Types Packs/Day Years Used Date Smoking Tobacco: Never Assessed Sex Assigned at Date Recorded Not on file documented as of this encounter Plan of Treatment Not on filedocumented as of this encounter Procedures Procedure Name Priority Date/Time Associated Diagnosis Comme [facility] US PELVIC Routine 05/23/2005 10:02 AM Results for this NON-OB, COMPLETE FINAL ASSEMBLY WORKER procedure a re in the results section. documented in this encounter Results SONO PELVIS COMPLETE (05/23/2005 10:02 AM FINAL ASSEMBLY WORKER) Anatomical Region Laterality Modality Other Specimen (Source) Anatomical Collection Method Collection Time Re ceived Time Location / / Volume Laterality 05/23/2005 10:02 AM FINAL ASSEMBLY WORKER Impressions 05/26/2005 10:39 AM FINAL ASSEMBLY WORKER PELVIC ULTRASOUND WITH TRANSVAGINAL - ?? TECHNIQUE: With transvaginal imaging to better evaluate the adnexa. ?? FINDINGS: Normal endometrium of 5 mm. No rmal ovaries. No free fluid seen. The exam is otherwise unremarkable . [facility] documented in this encounter Visit Diagnoses Not on filedocumented in this encounter
--- OUTSIDE RECORDS SUMMARY | 2022-01-14 14:54 | XMS_ITS | Encounter Summary ---
:1985 Author Organization [place] Address [address] [place] [address]. [place] [address] Care Team Providers Name Role Phone Gina Bautista PA-C Primary Care Provider Gina Bautista PA-C Unavailable Gina Bautista PA-C Unavailable Gina Bautista PA-C Unavailable Reason for Visit Reason Comments Medication Refill Encounter Details Date Type Department Care Team Description 03/22/2017 Refill [facility] Lyle Bautista Medication Refill [place] DOLORES Vance [address] [place] [address] [address] [phone] [place], [place] [address] (Wo rk) Social History Tobacco Use Types Packs/Day Years Used Date Smoking Tobacco: Never Smokeless Tobacco: Never Alcohol Use Standard Drinks/Week Comments Yes 0 (1 standard drink = 0.6 oz pure alcoho l) Sex Assigned at Date Recorded Not on file documented as of this encounter Miscellaneous Notes Telephone Encounter - Violette Archer - 04/06/2017 3:23 PM CST Appointment scheduled TH AND SOCIAL CARE TEACHER Telephone Encounter - Panchito Gandhi - 04/03/2017 10:43 AM CST 2nd attempt, LM to call back. Needs non-fasting lab only apt. Panchito Gandhi CMA ([facility]) TH AND SOCIAL CARE TEACHER Telephone Encounter - Donya Damon - 03/26/2017 11:50 AM CST 1st attempt LVM to call back to make an appt TH AND SOCIAL CARE TEACHER Telephone Encounter - Yvette Negrete RN - 03/25/2017 12:18 PM HEALTH AND SOCIAL CARE TEACHER Medication is being filled for 1 time refill only due to: Patient needs labs recheck on Vitamin D level. Call to schedule lab only appointment, future order previously placed. Kim Negrete RN TH AND SOCIAL CARE TEACHER Telephone Encounter - Kaye Gr - 03/23/2017 9:36 AM CST vitamin D (ERGOCALCIFEROL) 35909 UNIT capsule Last Written Prescription Date: 12/22/2016 Last Fill Quantity: 12, # refills: 0 Last Office Visit: 02/22/2017 Future Office visit: Next 5 appointments (look out 90 days) Apr 24, 2017 2:00 PM HEALTH AND SOCIAL CARE TEACHER Return Visit with Lisa Lopez LP [facility] ([facility]) [address] [facility] [address] May 08, 2017 2:00 PM HEALTH AND SOCIAL CARE TEACHER Return Visit with Lisa Lopez LP [facility] ([facility]) [address] [facility] [address] May 22, 2017 2:00 PM CDT Return Visit with Lisa Lopez LP [facility] ([facility]) [address] [facility] [phone] Routing refill request to provider for review/approval because: Drug not on the G, UMP or Health refill protocol or controlled substance TH AND SOCIAL CARE TEACHER documented in this encounter Plan of Treatment Not on filedocumented as of this encounter Visit Diagnoses Diagnosis Vitamin D deficiency Unspecified vitamin D deficiency documented in this encounter Additional Health Concerns Assessment Noted Time PHQ-9 Depression Total Score: 9 02/19/2017 2:07 PM HEALTH AND SOCIAL CARE TEACHER documented as of this encounter Care Teams International Logistics Manager Relationship Specialty Start Date End Date Gina Bautista, PCP - General Physician Wheat And Oats Flake Miller 5 09/03/21 PA-C Gina Bautista, PCP - Assigned PCP 01/12/15 05/11/18 [facility] [address] [place] [address] Gina Bautista, Physician Wheat And Oats Flake Miller 01/31/15 PA-C Gina Bautista, Assigned PCP 01/12/15 [facility] [address] [place] [address] documented as of this encounter
--- OUTSIDE RECORDS SUMMARY | 2022-01-14 14:54 | XMS_ITS | Encounter Summary ---
:1985 Author Organization [place] Address [address] [facility] [address] Care Team Providers Name Role Phone Gian Bautista PA-C Primary Care Provider Gina Bautista PA-C Unavailable Gina Bautista PA-C Unavailable Gina Bautista PA-C Unavailable Reason for Visit Reason Comments Panel Management Needs PAP Encounter Details Date Type Department Care Team Description 03/13/2015 Documentation Only [facility] Lupillo Bautista [facility] [place] Gina Vance, (Needs PAP ) [address] [place], [place] [address] [address] [place], [place] [phone] [address] Social History Tobacco Use Types Packs/Day Years [...] for provider review: None Marianne Tony CMA ([facility]) 03/13/2015 3:48 PM STED LIVING COORDINATOR documented in this encounter Plan of Treatment Not on filedocumented as of this encounter Visit Diagnoses Not on filedocumented in this encounter Additional Health Concerns Assessment Noted Time PHQ-9 Depression Total Score: 13 02/01/2015 7:29 AM CS T documented as of this encounter Care Teams Sas Developer Relationship Specialty Start Date End Date Gina Bautista PCP - General Physician Toilet Attendant 5 09/03/21 PA-C Gina Bautista, PCP - Assigned PCP 01/12/15 05/11/18 [facility] [address] [place] [address] Gina Bautista, Physician Toilet Attendant 01/31/15 PA-C Gina Bautista, Assigned PCP 01/12/15 [facility] [address] [place] [address] documented as of this encounter
--- OUTSIDE RECORDS SUMMARY | 2022-01-14 14:54 | XMS_ITS | Encounter Summary ---
:1985 Author Organization [place] Address [address] [place] [address]. [place] [address] Care Team Providers Name Role Phone Gina Bautista PA-C Primary Care Provider Gina Bautista PA-C Unavailable [phone] Gina Bautista PA-C Unavailable [phone] Gina Bautista PA-C Unavailable [phone] Reason for Visit Mental Health Outpatient (Routine) - Closed Specialty Diagnoses / Procedures Referred By Contact Refer red To Contact Gina Bautista FAIR[facility]TE BERNAL [facility] [id number] [place] [address] [place] [phone] Fax: Referral ID Status Reason Start Date Expiration Date Visits Requ ested Visits Authorized [facility] Closed 01/14/2017 01/14/2018 1 52 Encounter Details Date Type Department Care Team Description 02/06/2017 Office Visit [facility] Lisa Lopez LP Anxiety (Primary Dx) Services [id number] [place] [phone] Social History Tobacco Use Types Packs/Day Years Used Date Smoking Tobacco: Never Smokeless Tobacco: Never Alcohol Use Standard Drinks/Week Comments Yes 0 (1 standard drink = 0.6 oz pure alcoho l) Sex Assigned at Date Recorded Not on file documented as of this encounter Progress Notes JohnLisaTEODORA - 02/06/2017 2:23 PM CST Images from the original note were not included. Adult Intake Structured Interview Standard Diagnostic Assessment CLIENT'S NAME: Carley Hernandez : 1985 ACCT. NUMBER: [id number] DATE OF SERVICE: 02/06/17 Identifying Information: Client is a 31 year old, , female. Client was referred for counseling by self. 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 Client attended the session alone. Client's Statement [...] History: Client reported she grew up in [place], [place]. They were the second born of [...] concentration. There are no ethnic, cultural or methodist factors that may be relevant for therapy. Client identified her preferred language to be Polish. Client reported she does not need the assistance of an swimming pool installer and servicer or other support involved in therapy. Modifications [...] an exam with PCP. The clienthas a [place] Primary Care Provider, who is named Gina [...] muscle every30 days ??? vitamin D (ERGOCALCIFEROL) 88172 UNIT capsule Take 1 capsule (50,000 Units) [...] the following activities. For each question, please [place] only one response. S1 Standing for long [...] Plan: The client reports no currently identified methodist, ethnic or cultural issues relevant to therapy. Risk Tech services are not indicated. Modifications to assist [...] NA. Client will have access to their [facility] medical record. Lisa Lopez LP February 06, 2017 ORATE EXECUTIVE CHEF documented in this encounter Plan of Treatment Not on filedocumented as of this encounter Visit Diagnoses Diagnosis Anxiety - Primary Anxiety state, unspecified documented in this encounter Additional Health Concerns Assessment Noted Time PHQ-9 Depression Total Score: 7 12/19/2016 3:37 PM CDT documented as of this encounter Care Teams Internet Researcher Relationship Specialty Start Date End Date Gina Bautista PCP - General Physician Marketing Budget Analyst 5 09/03/21 [facility] Gina Bautista, PCP - Assigned PCP 01/12/15 05/11/18 [facility] [address] [place] [address] Gina Bautista Physician Marketing Budget Analyst 01/31/15 [facility] Gina Bautista, Assigned PCP 01/12/15 [facility] [address] [place] [address] documented as of this encounter
--- OUTSIDE RECORDS SUMMARY | 2022-01-14 14:54 | XMS_ITS | Encounter Summary ---
:1985 Author Organization [place] Address [facility] [place] [address] Care Team Providers Name Role Phone Gina Bautista PA-C Primary Care Provider [phone] Gina Bautista PA-C Unavailable Gina Bautista PA-C Unavailable Gina Bautista PA-C Unavailable Reason for Visit Reason Onset Date Comments Patient Request for Note/Letter 04/26/2015 Encounter Details Date Type Department Care Team Description 04/26/2015 Telephone [facility] Gina Bautista Request for Clinic Butlerreshma Vance PA-C Note/Letter [address] [address] [place], [place] [address] [address] [place], [place] [id number] Social History Tobacco Use Types Packs/Day Years Used Date Smoking Tobacco: Never Smokeless Tobacco: Never Alcohol Use Standard Drinks/Week Comments Yes 0 (1 standard drink = 0.6 oz pure alcoho l) Sex Assigned at Date Recorded Not on file documented as of this encounter Miscellaneous Notes Telephone Encounter - Gina Bautista PA-C - 04/27/2015 8:14 AM HVAC SERVICE MANAGER Note for patient provided for missed work, given to Meg. Gina Bautista PA-C SERVICE MANAGER Telephone Encounter - Irma Boggs, RN [...] pcp in office Thursday. Irma Boggs RN SERVICE MANAGER documented in this encounter Plan of Treatment Not on filedocumented as of this encounter Visit Diagnoses Not on filedocumented in this encounter Additional Health Concerns Assessment Noted Time PHQ-9 Depression Total Score: 16 04/26/2015 8:54 AM CS T documented as of this encounter Care Teams Leg Man Relationship Specialty Start Date End Date Gina Bautista PCP - General Physician Phosphoric Acid Operator 5 09/03/21 PALiuC Gina Bautista, PCP - Assigned PCP 01/12/15 05/11/18 [facility] [address] [place] [address] Gina Bautista, Physician Phosphoric Acid Operator 01/31/15 PAL[facility]C Gina Bautista, Assigned PCP 01/12/15 [facility] [address] [place] [address] documented as of this encounter
--- OUTSIDE RECORDS SUMMARY | 2022-01-14 14:54 | XMS_ITS | Encounter Summary ---
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 TSH WITH FREE T4 Routine 04/10/2017 2:35 PM Hypothyroidism due to Results for this REFLEX JOINERY SETTER OUT acquired atrophy of procedur e are in thyroid the results section. T4 FREE Routine 04/10/2017 2:35 PM Vitamin D deficiency R esults for this JOINERY SETTER OUT procedure are i n the results section. documented in this encounter Results T4 free (04/10/2017 2:35 PM JOINERY SETTER OUT) athologist [facility] [place] T4 Free 0.94 0.76 - 1.46 04/12/2017 [facility] ng/dL 1:41 PM [facility] Specimen Anatomical Collection Method Collection Time Receive d Time (Source) Location / / Volume Laterality 04/10/2017 2:35 PM 8 2:36 JOINERY SETTER OUT PM JOINERY SETTER OUT Gina Bautista PA-C LAB - BLOOD ORDERABLES Performing Organization Address City/State/ZIP Code Phon e Number [facility] [address] [place] [address] (ABNORMAL) TSH with free T4 reflex FUTURE 2mo (04/10/2017 2:35 PM JOINERY SETTER OUT) athologist [facility] [place] TSH 10.56 (H) 0.40 - 04/12/2017 [facility] 4.00 mU/L 1:28 PM [facility] Specimen Anatomical Collection Method Collection Time Receive d Time (Source) Location / / Volume Laterality Blood specimen 04/10/2017 2:35 PM 018 2:36 (specimen) JOINERY SETTER OUT PM JOINERY SETTER OUT Gina Bautista PA-C LAB - BLOOD ORDERABLES Performing Organization Address City/State/ZIP Code Phon e Number [facility] [address] [address] (ABNORMAL) Vitamin D Deficiency (04/10/2017 2:35 PM JOINERY SETTER OUT) athologist Signature Vitamin D 13 (L) 20 - 75 04/11/2017 [facility] ug/L 11:46 AM JOINERY SETTER OUT OR [facility] Comment: Season, race, dietary intake, and treatm ent affect the concentration of 13-owzbrvz-Vjyuyqu D. 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 documented in this encounter Additional Health Concerns Assessment Noted Time PHQ-9 Depression Total Score: 9 02/19/2017 2:07 PM JOINERY SETTER OUT documented as of this encounter Care Teams Magazine Hand Relationship Specialty Start Date End Date Gina Bautista, PCP - General Physician Bleach Mixer 5 09/03/21 PA-C Gina Bautista, PCP - Assigned PCP 01/12/15 05/11/18 PA-C [facility] [address] [place] [address] Gina Bautista, Physician Bleach Mixer 01/31/15 PA-C Gina Bautista, Assigned PCP 01/12/15 PA-C [facility] [address] [place] [address] documented as of this encounter
--- NOTE | 2022-01-14 15:00 | CRLHL7_ITS ---
For Patients: As a result of the Century Cures Act, medical imaging exams and procedure reports are released immediately into your electronic medical record. You may view this report before your referring provider. If you have questions, please contact your health care provider. INDICATION: Follow up growth. Bicornuate uterus. TECHNIQUE: Transabdominal obstetrical ultrasound. COMPARISON: 12/10/2021. FINDINGS: Single living intrauterine in vertex presentation. Posterior and fundal placenta. heart rate 152 beats per minute. Amniotic fluid volume index is toward the upper limit of normal but still within normal limits. This is new compared to the prior study. Biparietal diameter: 7.8 cm, 31 weeks 3 days, 93rd percentile. Head circumference: 28.6 cm, 31 weeks 3 days, 79th percentile. Abdominal circumference: 28.7 cm, 32 weeks 5 days, greater than 97th percentile. Femur length: 5.3 cm, 28 weeks 0 days, 8th percentile. Estimated weight 1695 grams which lies at the 93rd percentile. The head to abdominal circumference ratio is slightly low at 1.02 (1.04-1.22). IMPRESSION: 1. Single live IUP in vertex presentation. Posterior and fundal placenta. 2. Upper limit of normal amniotic fluid volume index of 21.4 cm. This is in comparison to the single deepest pocket measurement 12/10/2021 which was 6.7 cm. 3. Composite calculated ultrasound age 30 weeks 6 days with a sonographic due date of 03/19/2022. Appropriate growth and maturation in the interval. Dictated by Home Burris MD @ 01/15/2022 10:28:46 AM (Electronically Signed)
== END 2022-01-14 14:52 | disposition home or self-care (01) ==
LOC: US 14:52
PROVIDERS: PCP Internal Medicine; Visit Provider Physician Assistant
DX: Q51.3 Bicornate uterus (principal); Z3A.29 29 weeks gestation of pregnancy
CPT/HCPCS: 76816

== ENCOUNTER 2022-01-21 10:24 | Outpatient (CLI) | payer BC, SELFPAY ==
--- OUTSIDE RECORDS SUMMARY | 2022-01-21 16:04 | XMS_ITS | Encounter Summary ---
:1985 Author Organization [place] Address [address] [place] [address]. [place] [address] Care Team Providers Name Role Phone Gina Bautista PA-C Primary Care Provider Gina Bautista PA-C Unavailable Gina Bautista PA-C Unavailable Gina Bautista PA-C Unavailable Reason for Visit Reason Onset Date Comments Outreach 05/27/2017 Encounter Details Date Type Department Care Team Description 05/27/2017 Telephone [facility] Lyle Bautista Outreach [place] DOLORES Vance [address] [facility] [place] [address] [address] [phone] [place], [place] [address] (Wo rk) Social History [...] Panchito Gandhi sent at 04/15/2017 4:53 PM POLE CUTTER ----- Call pt to schedule lab only in next 2 weeks. Labs pended. Panchito Gandhi CMA ([facility]) documented in this encounter Plan of Treatment Not on filedocumented as of this encounter Visit Diagnoses Not on filedocumented in this encounter Additional Health Concerns Assessment Noted Time PHQ-9 Depression Total Score: 10 05/09/2017 8:01 AM CS T documented as of this encounter Care Teams Railroad Worker Relationship Specialty Start Date End Date Gina Bautista PCP - General Physician Online Merchant 5 09/03/21 PA-C Gina Bautista, PCP - Assigned PCP 01/12/15 05/11/18 [facility] [address] [place] [address] Gina Bautista, Physician Online Merchant 01/31/15 PA-C Gina Bautista, Assigned PCP 01/12/15 [facility] [address] [place] [address] documented as of this encounter
--- OUTSIDE RECORDS SUMMARY | 2022-01-21 16:04 | XMS_ITS | Encounter Summary ---
:1985 Author Organization [place] Address [address] [place] [address] Care Team Providers Name Role Phone Gina Bautista PA-C Unavailable [phone] Vidya Espinal APRN, CNM Unavailable [phone] [facility] [place] Unavailable Marissa Jean MD Unavailable Violette Bolden CNM Primary Care Provider Reason for Visit Reason Onset Date Comments Appointment 09/04/2021 Encounter Details Date Type Department Care Team Description 09/04/2021 Telephone [facility] Natalya Jean, Lizzeth Israel MD [address] [facility] [address] [place] [address] [place] [address] (Wo rk) Social History Tobacco [...] CDT [facility], relayed message to garment parts cutter hand she will relay this message to the team/person who called. Telephone Encounter - Marissa Jean MD - 09/04/2021 10:29 AM CDT NEW PT TO ME. I am very sorry- but at this time schedule is booked out and I do not have any sooner appointments. Patient my wish to request endo consult at another locations or [facility] Endocrinology. Let me know if you have any questions. Thank you. Marissa Jean MD Telephone Encounter - Karyn Iniguez RN - 09/04/2021 9:15 AM CDT Please advise as pt is . Telephone Encounter - Kendall Burden - 09/04/2021 9:08 AM CDT [facility] Call Center Phone Message May a detailed message be left on voicemail: yes Reason for Call: Appointment Intake Referring Provider Name: Vidya Espinal Diagnosis and/or Symptoms: Hypothyroidism and Per referral urgency 3-5 days. [facility] wondering if pt can be seen [...] documented as of this encounter Care Teams Call Center Agent Relationship Specialty Start Date End Date Violette Bolden CNM PCP - General 09/04/21 [facility] [address] [place] [address] Gina Bautista, Physician Planishing Press Operator 01/31/15 [facility] Vidya Espinal APRN CNM Drum Filler 08/21/[address] [place] [address] [facility], [facility] 08/21/[address] [address] Marissa Jean MD Hospitalist Endocrinology, 09/04/21 [address] Diabetes, and [address] Metabolism [place], [place] [phone] documented as of this encounter
--- OUTSIDE RECORDS SUMMARY | 2022-01-21 16:04 | XMS_ITS | Encounter Summary ---
:1985 Author Organization [place] Address [address] [place] [address]. [place] [address] Care Team Providers Name Role Phone Gina Bautista PA-C Primary Care Provider Gina Bautista PA-C Unavailable [phone] Gina Bautista PA-C Unavailable Gina Bautista PA-C Unavailable Encounter Details Date Type Department Care Team Description 05/08/2017 Office Visit [facility] Lisa Lopez LP Anxiety (Primary Dx) Services [address] [phone] Social History Tobacco Use Types Packs/Day Years [...] her ex spouse. At work, has received Fashinatingdos and a perk. But has lots of [...] plan. Lisa Lopez LP February 19, 2017 MOBILE BRAKE BONDER documented in this encounter Plan of Treatment Not on filedocumented as of this encounter Visit Diagnoses Diagnosis Anxiety - Primary Anxiety state, unspecified documented in this encounter Additional Health Concerns Assessment Noted Time PHQ-9 Depression Total Score: 10 05/09/2017 8:01 AM CS T documented as of this encounter Care Teams Neurology Manager Relationship Specialty Start Date End Date Gina Bautista, PCP - General Physician Patch Press Operator 5 09/03/21 [facility] Gina Bautista, PCP - Assigned PCP 01/12/15 05/11/18 [facility] [address] [place] [address] Gina Bautista, Physician Patch Press Operator 01/31/15 [facility] Gina Bautista, Assigned PCP 01/12/15 [facility] [address] [place], [place] [address] documented as of this encounter
--- OUTSIDE RECORDS SUMMARY | 2022-01-21 16:04 | XMS_ITS | Encounter Summary ---
:1985 Author Organization [place] Address [address] [place] [address]. [place] [address] Care Team Providers Name Role Phone Gina Bautista PA-C Primary Care Provider Gina Bautista PA-C Unavailable [phone] Vidya Espinal APRN [facility] Unavailable [phone] Clinic, [facility] Unavailable Encounter Details Date Type Department Care Team Description 08/08/2021 Medical Correspondence [facility] Scan, ENDOCRINOLOGY ORDER Health Info [facility] Non-Provider [facility] [address] [place] [phone] Social History Tobacco Use Types Packs/Day [...] documented as of this encounter Care Teams School Guard Relationship Specialty Start Date End Date Gina Bautista, PCP - General Physician Hazardous Material Specialist 5 09/03/21 [facility] Gina Bautista Physician Hazardous Material Specialist 01/31/15 [place] Vidya Espinal APRN CNM Associate Professor Of Art 08/21/[address] [address] [facility], [facility] 08/21/[address] [address] documented as of this encounter
--- OUTSIDE RECORDS SUMMARY | 2022-01-21 16:04 | XMS_ITS | Encounter Summary ---
:1985 Author Organization [facility] Address [address] [place] [address] Care Team Providers Name Role Phone Gina Bautista PA-C Primary Care Provider OestrGina daniels PA-C Unavailable [phone] Gina Bautista PA-C Unavailable [phone] OestrGina daniels PA-C Unavailable [phone] Encounter Details Date Type Department Care Team Description 06/11/2017 Hospital Pathology [facility] Results MD Brynn [address] [address] (Wo rk) Social History Tobacco Use Types [...] Procedure Name Priority Date/Time Associated Diagnosis [facility] SURGICAL PATHOLOGY Routine 06/11/2017 11:30 AM Re sults for this EXAM CDT procedure are i n the results section. documented in this encounter Results Surgical pathology exam (06/11/2017 11:30 AM CDT) Component Value Ref Test Analysis Performed At [facility] Method Time Signature Copath Report Patient Name: CARLEY JO COPATH MR#: [id number] Specimen #: [id number] Collected: 06/11/2017 Received: 06/11/2017 Reported: 06/12/2017 14:08 [...] par ts or translucent vesicles are identified. Adult And Pediatric Neurologist sections are submitted in 2 blocks. ??The rem ainder of the specimen is handled per [facility] protocol. (Dictated by: ASHLEY Martinez 06/11/2017 03:17 PM) MICROSCOPIC: Microscopic examination is performed. CPT Codes: A: 26417-PP4, SO TESTING LAB LOCATION: [facility] [address] [place] [address] ??[id number] COLLECTION SITE: Client: [facility] Location: R548 (F) Specimen Anatomical Collection Method Collection Time Receive d Time (Source) Location / / Volume Laterality 06/11/2017 11:30 06/11/2017 2:41 AM CDT PM CDT Ryne Monson MD [facility] Organization Address City/State/ZIP Code Phon e Number COPATH documented in this encounter Visit Diagnoses Not on filedocumented in this encounter Additional Health Concerns Assessment Noted Time PHQ-9 Depression Total Score: 10 05/09/2017 8:01 AM CS T documented as of this encounter Care Teams Airline Station Agent Relationship Specialty Start Date End Date Gina Bautista, PCP - General Physician Label Drier 5 09/03/21 ASHLEY-C Gina Bautista, PCP - Assigned PCP 01/12/15 05/11/18 [facility] [address] [place] [address] Gina Bautista, Physician Label Drier 01/31/15 [place] Gina Bautista, Assigned PCP 01/12/15 [facility] [address] [place] [address] documented as of this encounter
--- OUTSIDE RECORDS SUMMARY | 2022-01-21 16:04 | XMS_ITS | Encounter Summary ---
:1985 Author Organization [facility] Address [address] [place] [address]. [place] [address] Care Team Providers Name Role Phone Gina Bautista PA-C Primary Care Provider Gina Bautista PA-C Unavailable [phone] Vidya Espinal APRN [facility] Unavailable [phone] Clinic, [facility] Unavailable Encounter Details Date Type Department Care Team Description 2021 Medical Correspondence [facility] Scan, ENDOCRINOLOGY Health Info Mgmt Non-Provider REFERRAL [address] [address] Social History Tobacco Use Types [...] documented as of this encounter Care Teams Jump Roll Operator Relationship Specialty Start Date End Date Gina Bautista, PCP - General Physician Food Safety Specialist 5 09/03/21 [place] Gina Bautista, Physician Food Safety Specialist 01/31/15 [place] Vidya Espinal APRN CNM Hand Rounder 08/21/[address] [address] [facility], [facility] 08/21/[address] [address] documented as of this encounter
--- OUTSIDE RECORDS SUMMARY | 2022-01-21 16:04 | XMS_ITS | Encounter Summary ---
:1985 Author Organization [place] Address [address] [place] [address]. [place] [address] Care Team Providers Name Role Phone Gina Bautista PA-C Primary Care Provider Gina Bautista PA-C Unavailable Gina Bautista PA-C Unavailable Gina Bautista PA-C Unavailable Reason for Visit Reason Comments Medication Refill Encounter Details Date Type Department Care Team Description 03/22/2017 Refill [facility] Lyle Bautista Medication Refill [place] DOLORES Vance [address] [place] [address] [address] [phone] [place], [place] [address] (Wo rk) Social History Tobacco Use Types Packs/Day Years Used Date Smoking Tobacco: Never Smokeless Tobacco: Never Alcohol Use Standard Drinks/Week Comments Yes 0 (1 standard drink = 0.6 oz pure alcoho l) Sex Assigned at Date Recorded Not on file documented as of this encounter Miscellaneous Notes Telephone Encounter - Violette Archer - 04/06/2017 3:23 PM CST Appointment scheduled BUILDING SUPERVISOR Telephone Encounter - Panchito Gandhi - 04/03/2017 10:43 AM CST 2nd attempt, LM to call back. Needs non-fasting lab only apt. Panchito Gandhi CMA ([place]WY) BUILDING SUPERVISOR Telephone Encounter - Donya Damon - 03/26/2017 11:50 AM CST 1st attempt LVM to call back to make an appt BUILDING SUPERVISOR Telephone Encounter - Yvette Negrete RN - 03/25/2017 12:18 PM FORM BUILDING SUPERVISOR Medication is being filled for 1 time refill only due to: Patient needs labs recheck on Vitamin D level. Call to schedule lab only appointment, future order previously placed. Kim Negrete RN BUILDING SUPERVISOR Telephone Encounter - Kaye Gr - 03/23/2017 9:36 AM CST vitamin D (ERGOCALCIFEROL) 06071 UNIT capsule Last Written Prescription Date: 12/22/2016 Last Fill Quantity: 12, # refills: 0 Last Office Visit: 02/22/2017 Future Office visit: Next 5 appointments (look out 90 days) Apr 24, 2017 2:00 PM FORM BUILDING SUPERVISOR Return Visit with Lisa Lopez LP [facility] [address] [facility] [address] May 08, 2017 2:00 PM FORM BUILDING SUPERVISOR Return Visit with Lisa Lopez LP [facility] [address] [facility] [address] May 22, 2017 2:00 PM CDT Return Visit with Lisa Lopez LP [facility] [address] [facility] [phone] Routing refill request to provider for review/approval because: Drug not on the G, UMP or Health refill protocol or controlled substance BUILDING SUPERVISOR documented in this encounter Plan of Treatment Not on filedocumented as of this encounter Visit Diagnoses Diagnosis Vitamin D deficiency Unspecified vitamin D deficiency documented in this encounter Additional Health Concerns Assessment Noted Time PHQ-9 Depression Total Score: 9 02/19/2017 2:07 PM FORM BUILDING SUPERVISOR documented as of this encounter Care Teams Staff Pharmacist Hospital Relationship Specialty Start Date End Date Gina Bautista, PCP - General Physician Railroader 5 09/03/21 PA-C Gina Bautista, PCP - Assigned PCP 01/12/15 05/11/18 [facility] [address] [place] [address] Gina Bautista, Physician Railroader 01/31/15 PA-C Gina Bautista, Assigned PCP 01/12/15 [facility] [address] [place] [address] documented as of this encounter
--- OUTSIDE RECORDS SUMMARY | 2022-01-21 16:04 | XMS_ITS | Encounter Summary ---
:1985 Author Organization [facility] Address [address] [place] [address] Care Team Providers Name Role Phone Gina Bautista PA-C Primary Care Provider [phone] Gina Bautista PA-C Unavailable [phone] Vidya Espinal APRN [facility] Unavailable [phone] [facility], [facility] Unavailable Reason for Referral Consultation (Urgent: 3-5 Days) - Pending Review Specialty Diagnoses / Procedures Referred By Contact Refer red To Contact Endocrinology, Diagnoses Hypothyroidism System, Provider Not Diabetes, and In Metabolism Referral ID Status Reason Start Date Expiration Date Visits V isits Requested Authorized [id number] Pending 2021 2022 1 1 Review Scheduling [...] Referral Urgent: 3-5 Days Hypothyroidism Ex pected: Metal Casket Maker Referral (Approximate), Expires: 2022 documented as of this encounter Visit Diagnoses Diagnosis Hypothyroidism - Primary Unspecified hypothyroidism documented in this encounter Additional Health Concerns Assessment Noted Time PHQ-9 Depression Total Score: 10 05/09/2017 8:01 AM CS T documented as of this encounter Care Teams Tyre Finisher And Examiner Relationship Specialty Start Date End Date Gina Bautista, PCP - General Physician Hand Potter 5 09/03/21 PA-C Gina Bautista, Physician Hand Potter 01/31/15 PA-C Vidya Espinal APRN CNM Technical Spec 08/21/[address] [address] [facility], [facility] 08/21/[address] [address] documented as of this encounter
--- OUTSIDE RECORDS SUMMARY | 2022-01-21 16:04 | XMS_ITS | Encounter Summary ---
:1985 Author Organization [facility] Address [address] [place] [address]. [place] [address] Care Team Providers Name Role Phone Gina Bautista PA-C Primary Care Provider [phone] Gina Bautista PA-C Unavailable Gina Bautista PA-C Unavailable [phone] Gina Bautista PA-C Unavailable [phone] Reason for Visit Mental Health Outpatient (Routine) - Closed Specialty Diagnoses / Procedures Referred By Contact Refer red To Contact Gina Bautista [facility] J[facility]TE BERNAL [facility] [id number] [place] [address] [place] [phone] Fax: Referral ID Status Reason Start Date Expiration Date Visits Requ ested Visits Authorized [facility] Closed 01/14/2017 01/14/2018 1 52 Encounter Details Date Type Department Care Team Description 02/19/2017 Office Visit [facility] Lisa Lopez LP Anxiety (Primary Dx) Services [phone] [place] [phone] Social History Tobacco Use Types Packs/Day Years [...] decree) Talks to relatives ( who are director construction services) to get concrete info. Explored TIP skills. [...] Lisa Lopez LP Treatment Plan Client's Name: Craley Hernandez Date Of : 1985 Date: 02-19-17 [...] plan. Lisa Lopez LP February 19, 2017 R ASSEMBLY LINEMAN documented in this encounter Plan of Treatment Not on filedocumented as of this encounter Visit Diagnoses Diagnosis Anxiety - Primary Anxiety state, unspecified documented in this encounter Additional Health Concerns Assessment Noted Time PHQ-9 Depression Total Score: 9 02/19/2017 2:07 PM MAJOR ASSEMBLY LINEMAN documented as of this encounter Care Teams Management Consulting Relationship Specialty Start Date End Date Gina Bautista, PCP - General Physician Department Manager 5 09/03/21 PA-C Gina Bautista, PCP - Assigned PCP 01/12/15 05/11/18 PA-C [facility] [address] [place] [address] Gina Bautista, Physician Department Manager 01/31/15 PA-C Gina Bautista, Assigned PCP 01/12/15 PA-C [facility] [address] [place] [address] documented as of this encounter
--- OUTSIDE RECORDS SUMMARY | 2022-01-21 16:04 | XMS_ITS | Encounter Summary ---
:1985 Author Organization [facility] Address [address] [place] [address]. [place] [address] Care Team Providers Name Role Phone Gina Bautista PA-C Primary Care Provider Gina Bautista PA-C Unavailable Gina Bautista PA-C Unavailable Gina Bautista PA-C Unavailable Encounter Details Date Type Department Care Team Description 04/24/[address] [facility] Lisa Lopez LP Anxiety (Primary Dx) Services [address] [phone] Social History Tobacco Use Types Packs/Day Years [...] plan. Lisa Lopez LP February 19, 2017 OLOGIC TECH documented in this encounter Plan of Treatment Not on filedocumented as of this encounter Visit Diagnoses Diagnosis Anxiety - Primary Anxiety state, unspecified documented in this encounter Additional Health Concerns Assessment Noted Time PHQ-9 Depression Total Score: 10 04/25/2017 8:01 AM CS T documented as of this encounter Care Teams Rn Ccu Relationship Specialty Start Date End Date Gina Bautista, PCP - General Physician Brick Dropper 5 09/03/21 [place] Gina Bautista, PCP - Assigned PCP 01/12/15 05/11/18 [place]OLORES [facility] [address] [place] [address] Gina Bautista, Physician Brick Dropper 01/31/15 [place] Gina Bautista, Assigned PCP 01/12/15 [place] [facility] [address] [place] [address] documented as of this encounter
--- OUTSIDE RECORDS SUMMARY | 2022-01-21 16:04 | XMS_ITS | Encounter Summary ---
:1985 Author Organization [facility] Address [address] [place] [address]. [place] [address] Care Team Providers Name Role Phone Gina Bautista PA-C Primary Care Provider OestrGina daniels PA-C Unavailable Gina Bautista PA-C Unavailable Gina Bautista PA-C Unavailable Encounter Details Date Type Department Care Team Description 11/12/2017 [facility] Lisa Lopez LP Documentation Services [address] [phone] Social History Tobacco Use Types Packs/Day Years [...] documented as of this encounter Care Teams Laborer Syrup Machine Relationship Specialty Start Date End Date Gina Bautista, PCP - General Physician Website Developer 5 09/03/21 PA-C Gina Bautista, PCP - Assigned PCP 01/12/15 05/11/18 [facility] [address] [place] [address] Gina Bautista, Physician Website Developer 01/31/15 PA-C Gina Bautista, Assigned PCP 01/12/15 [facility] [address] [place] [address] documented as of this encounter
--- OUTSIDE RECORDS SUMMARY | 2022-01-21 16:04 | XMS_ITS | Encounter Summary ---
:1985 Author Organization [facility] Address [address] [place] [address]. [place] [address] Care Team Providers Name Role Phone Gina Bautista PA-C Primary Care Provider Gina Bautista PA-C Unavailable Gina Bautista PA-C Unavailable Gina Bautista PA-C Unavailable Encounter Details Date Type Department Care Team Description 05/22/2017 Office Visit [facility] Lisa Lopez LP Anxiety (Primary Dx) Services [address] [phone] Social History Tobacco Use Types Packs/Day Years [...] documented as of this encounter Care Teams System Consultant Relationship Specialty Start Date End Date Gina Bautista PCP - General Physician Slate Roofer Helper 5 09/03/21 PA-C Gina Bautista, PCP - Assigned PCP 01/12/15 05/11/[address] [facility] [address] [place] [address] Gina Bautista, Physician Slate Roofer Helper 01/31/15 PA-C Gina Bautista, Assigned PCP 01/12/[address] [facility] [address] [place] [address] documented as of this encounter
--- OUTSIDE RECORDS SUMMARY | 2022-01-21 16:04 | XMS_ITS | Encounter Summary ---
:1985 Author Organization [facility] Address [address] [place] [address]. [place] [address] Care Team Providers Name Role Phone Gina Bautista PA-C Primary Care Provider Gina Bautista PA-C Unavailable Gina Bautista PA-C Unavailable [phone] Gina Bautista PA-C Unavailable [phone] Reason for Visit Mental Health Outpatient (Routine) - Closed Specialty Diagnoses / Procedures Referred By Contact Refer red To Contact Gina Bautista [facility] JANETTE BERNAL [facility] [id number] [place] [address] [place] [phone] Fax: Referral ID Status Reason Start Date Expiration Date Visits Requ ested Visits Authorized [facility] Closed 01/14/2017 01/14/2018 1 52 Encounter Details Date Type Department Care Team Description 02/06/2017 Office Visit [facility] Lisa Lopez LP Anxiety (Primary Dx) Services [phone] [place] [address] [phone] Social History Tobacco Use Types Packs/Day Years [...] NAME: Carley Hernandez : 1985 ACCT. NUMBER: [id number] DATE OF SERVICE: 02/06/17 Identifying Information: Client is a 31 year old, , female. Client was referred for counseling by self. 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 Client attended the session alone. Client's Statement [...] History: Client reported she grew up in [place], [place]. They were the second born of [...] concentration. There are no ethnic, cultural or mandaen factors that may be relevant for therapy. Client identified her preferred language to be Albanian. Client reported she does not need the assistance of an video control engineer or other support involved in therapy. Modifications [...] an exam with PCP. The clienthas a [facility] Primary Care Provider, who is named Gnia Bautista.. The client reports nothaving a psychiatrist. [...] muscle every30 days ??? vitamin D (ERGOCALCIFEROL) 92304 UNIT capsule Take 1 capsule (50,000 Units) [...] the following activities. For each question, please [place] only one response. S1 Standing for long [...] Plan: The client reports no currently identified mandaen, ethnic or cultural issues relevant to therapy. Assistant Professor Of Drama services are not indicated. Modifications to assist [...] NA. Client will have access to their [facility]' medical record. Lisa Lopez LP February 06, 2017 L RECEPTIONIST documented in this encounter Plan of Treatment Not on filedocumented as of this encounter Visit Diagnoses Diagnosis Anxiety - Primary Anxiety state, unspecified documented in this encounter Additional Health Concerns Assessment Noted Time PHQ-9 Depression Total Score: 7 12/19/2016 3:37 PM CDT documented as of this encounter Care Teams Ophthalmology Surgical Technician Relationship Specialty Start Date End Date Gina Bautista PCP - General Physician Continuous Improvement Lead 5 09/03/21 [place] Gina Bautista, PCP - Assigned PCP 01/12/15 05/11/18 [facility] [address] [place] [address] Gina Bautista Physician Continuous Improvement Lead 01/31/15 [place] Gina Bautista, Assigned PCP 01/12/15 [facility]ES [facility] [address] [place] [address] documented as of this encounter
--- OUTSIDE RECORDS SUMMARY | 2022-01-21 16:04 | XMS_ITS | Clinical Summary ---
:1985 Author Organization [facility] [place] Address [address] [place] [address] Care Team Providers Name Role Phone Gina Bautista PA-C Unavailable [phone] Vidya Espinal APRN CN Unavailable [phone] [facility], [facility] Unavailable Marissa Jean MD Unavailable Violette [...] symptoms greater than 10 days fluticasone (FLONASE) [place] 1-2 sprays 1 Bottle 11 02/22/2017 Active 50 MCG/ACT into both nostrils sprayIndications: daily Acute sinusitis with symptoms greater than 10 days vitamin D Take 1 capsule 12 capsule 0 04/14/2017 Act [place] (ERGOCALCIFEROL) (50,000 [place]) [place] [address] UNIT mouth once a week capsuleIndications: Lab [...] Comments Blood Pressure 108/62 02/22/2017 11:59 AM [facility] Pulse 61 02/22/2017 11:59 AM [facility] Temperature 36.7 ??C (98.1 ??F) 02/22/2017 11:59 AM [facility] Respiratory Rate 15 12/19/2016 2:53 PM CDT Oxygen Saturation 100% 02/22/2017 11:59 AM [facility] Inhaled Oxygen Concentration - - Weight 79.3 kg (174 lb 12.8 oz) 01/27/2017 1:05 PM [facility] Height 167.6 cm (5' 6) 12/19/2016 2:53 [...] e / Group Dates [place] [id number] 2021-Pres [phone] [address] Indemnity [phone] [place] [address] [facility] [id number] 2016-Pres [address] PPO BEHAVIORAL ent [phone] [place] [address] ([place]) [place] [address] Care Teams Marketing Proposal Coordinator Relationship Specialty Start Date End Date Violette Boledn CNM PCP - General 09/04/21 [facility] [address] [place] [address] Gina Bautista, Physician Sewing Machine Mechanic 01/31/15 PA-C Vidya Espinal APRN CNM Manager Product Management 08/21/21 [facility] [address] [facility] [address] [place] [address] [facility], [facility] 08/21/[address] [address] Marissa Jean MD Hospitalist Endocrinology, 09/04/21 [address] Diabetes, and [address] [place] [address]
--- OUTSIDE RECORDS SUMMARY | 2022-01-21 16:04 | XMS_ITS | Encounter Summary ---
:1985 Author Organization [facility] Address [address] [place] [address] Care Team Providers Name Role Phone Gina Bautista PA-C Primary Care Provider Gina Bautista PA-C Unavailable [phone] Encounter Details Date Type Department Care Team Description 08/06/2020 Records - [facility] CONVERSION Provider, Histor ica Social History [...] documented as of this encounter Care Teams Adult Education Teacher Relationship Specialty Start Date End Date Gina Bautista PA-C PCP - General Physician Process Environmental Technician 01/31/15 09/03/21 Gina Bautista PA-C Physician Process Environmental Technician 01/31/15 documented as of this encounter
--- OUTSIDE RECORDS SUMMARY | 2022-01-21 16:04 | XMS_ITS | Encounter Summary ---
:1985 Author Organization [facility] Address [address] [place] [address]. [place] [address] Care Team Providers Name Role Phone Gina Bautista PA-C Primary Care Provider [phone] Gina Bautista PA-C Unavailable Gina Bautista PA-C Unavailable Gina Bautista PA-C Unavailable Reason for Visit Reason Onset Date Comments Refill Request 04/14/2017 Encounter Details Date Type Department Care Team Description 04/14/2017 Telephone [facility] Lyle Bautista Refill Request Jigna Vance PA-C [address] [place] [address] [address] [phone] [place], [place] [address] (Wo rk) Social History [...] in 6-8 weeks. Panchito Gandhi CMA (AAMA) ICATION INTEGRATION SPECIALIST Telephone Encounter - Gina Buatista PA-C - 04/14/2017 12:48 PM APPLICATION INTEGRATION SPECIALIST Lab orders futured and rx sent to pharmacy. Please notify patient should schedule lab only visit in 6-8 weeks, will check TSH and Vit D. 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 Vitamin D deficiency Unspecified vitamin D deficiency documented in this encounter Additional Health Concerns Assessment Noted Time PHQ-9 Depression Total Score: 9 02/19/2017 2:07 PM APPLICATION INTEGRATION SPECIALIST documented as of this encounter Care Teams Fabric And Textile Factory Worker Relationship Specialty Start Date End Date Gina Bautista PCP - General Physician Copy Operator 5 09/03/21 DOLORES Gina Bautista, PCP - Assigned PCP 01/12/15 05/11/18 [facility] [address] [place] [address] Gina Bautista, Physician Copy Operator 01/31/15 DOLOR[place] Gina Bautista, Assigned PCP 01/12/15 [facility] [address] [place] [address] documented as of this encounter
--- OUTSIDE RECORDS SUMMARY | 2022-01-21 16:04 | XMS_ITS | Encounter Summary ---
:1985 Author Organization [place] Address [address] [place] [address]. [place] [address] Care Team Providers Name Role Phone Gina Bautista PA-C Primary Care Provider [phone] Gina Bautista PA-C Unavailable Gina Bautista PA-C Unavailable Gina Bautista PA-C Unavailable Reason for Visit Reason Comments Urgent Care URI Colds x3-4- facial pain and pressure, sinus pressure, MAK, achy lymphnofe, L ear pain- unable to hear f rom L ear. Encounter Details Date Type Department Care Team Description 02/22/2017 Office Visit [facility] Johny Puga, Acute sinusitis with Urgent Care Ferny gage MD symptoms greater than [address] [address] [address] [address] Jason 10 days (Primary Dx) [place] [address] [phone] Social History Tobacco Use Types Packs/Day Years Used Date Smoking Tobacco: Never Smokeless Tobacco: Never Alcohol Use Standard Drinks/Week Comments Yes 0 (1 standard drink = 0.6 oz pure alcoho l) Sex Assigned at Date Recorded Not on file documented as of this encounter Last Filed Vital Signs Vital Sign Reading Time Taken Comments Blood Pressure 108/62 02/22/2017 11:59 AM POWER SAW OPERATOR Pulse 61 02/22/2017 11:59 AM POWER SAW OPERATOR Temperature 36.7 ??C (98.1 ??F) 02/22/2017 11:59 AM POWER SAW OPERATOR Respiratory Rate - - Oxygen Saturation 100% 02/22/2017 11:59 AM POWER SAW OPERATOR Inhaled Oxygen Concentration - - Weight - [...] have suggested that the patient Push fluids. R SAW OPERATOR documented in this encounter Nursing Notes Nury [...] Medication Reconciliation: complete [place] CMA (AASANDRA) R SAW OPERATOR documented in this encounter Plan of Treatment Not on filedocumented as of this encounter Visit Diagnoses Diagnosis Acute sinusitis with symptoms greater th an 10 days - Primary Acute sinusitis, unspecified documented in this encounter Additional Health Concerns Assessment Noted Time PHQ-9 Depression Total Score: 9 02/19/2017 2:07 PM POWER SAW OPERATOR documented as of this encounter Care Teams Life Skills Educator Relationship Specialty Start Date End Date Gina Bautista, PCP - General Physician Marketing Agent 5 09/03/21 PA-C Gina Bautista PCP - Assigned PCP 01/12/15 05/11/18 PA-C [facility] [address] [place] [address] Gina Bautista, Physician Marketing Agent 01/31/15 PA-C Gina Bautista, Assigned PCP 01/12/15 PA-C [facility] [address] [place] [address] documented as of this encounter
--- OUTSIDE RECORDS SUMMARY | 2022-01-21 16:04 | XMS_ITS | Clinical Summary ---
:1985 Author Organization [facility] [place] [address] Care Team Providers Name Role Phone Pcp, [...] = 9 in March; Hgb 10.3 at [facility] before transfer History of delivery 02/02/2018 [...] if not delivered. 7. contractions with mild softball umpire al cervical change, admitted to [facility] and received steroids x 2. It's a [...] 01/16/2023 01/17/2020, 01/17/2020, 12/19/2016 ([facility]) Tetanus booster 04/05/2028 04/05/2018, 03/09/2012 Tdap Completed 04/05/2018, 03/09/2012 Results Not on filefrom Last 3 Months Advance Directives Latest Code Status on File Code Status Date Activated Date Inactivated Comments Full Code 05/25/2018 11:18 PM 05/28/2018 2:46 PM Full Code 05/03/2018 7:52 PM 05/04/2018 5:01 PM Full Code 07/04/2013 11:25 AM 07/04/2013 4:53 PM Care Teams Bi Technical Lead Relationship Specialty Start Date End Date Pcp, No PCP - General 01/15/19 .
--- OUTSIDE RECORDS SUMMARY | 2022-01-21 16:05 | XMS_ITS | Encounter Summary ---
:1987 Author Organization [place] Address [address] [place] [address] Care Team Providers Name Role Phone Unavailable Primary Care Provider Unavailable Encounter Details Date Type Department Care Team Description 05/23/2005 Results Only [facility] Results EMERGENCY PHYSI [facility] [address] [place] [address] (Wo rk) Social History Tobacco Use Types Packs/Day Years Used Date Smoking Tobacco: Never Assessed Sex Assigned at Date Recorded Not on file documented as of this encounter Plan of Treatment Not on filedocumented as of this encounter Procedures Procedure Name Priority Date/Time Associated Diagnosis Comme [facility] US PELVIC Routine 05/23/2005 10:02 AM Results for this NON-OB, COMPLETE REMEDIATION TECHNICIAN procedure a re in the results section. documented in this encounter Results SONO PELVIS COMPLETE (05/23/2005 10:02 AM REMEDIATION TECHNICIAN) Anatomical Region Laterality Modality Other Specimen (Source) Anatomical Collection Method Collection Time Re ceived Time Location / / Volume Laterality 05/23/2005 10:02 AM REMEDIATION TECHNICIAN Impressions 05/26/2005 10:39 AM REMEDIATION TECHNICIAN PELVIC ULTRASOUND WITH TRANSVAGINAL - ?? TECHNIQUE: With transvaginal imaging to better evaluate the adnexa. ?? FINDINGS: Normal endometrium of 5 mm. No rmal ovaries. No free fluid seen. The exam is otherwise unremarkable . [facility] documented in this encounter Visit Diagnoses Not on filedocumented in this encounter
--- OUTSIDE RECORDS SUMMARY | 2022-01-21 16:05 | XMS_ITS | Encounter Summary ---
:1985 Author Organization [place] Address [address] [place] [address] Care Team Providers Name Role Phone Gina Bautista PA-C Primary Care Provider Gina Bautista PA-C Unavailable [phone] Gina Bautista PA-C Unavailable [phone] Gina Bautista PA-C Unavailable [phone] Reason for Referral - Closed Specialty Diagnoses / Procedures Referred By Contact Refer red To Contact Diagnoses S/P gastric bypass Gina Bautista, Procedures VITAMIN B12 INJ /1000MCG DOLORES [facility] [address] [place] [address] Referral ID Status Reason Start Date Expiration Date Visits Requ ested Visits Authorized [id number] Closed 12/29/2016 12/29/2017 1 1 Reason for Visit Reason Comments Imm/Inj starting B 12 injections Encounter Details Date Type Department Care Team Description 12/29/2016 Allied Health/Nurse [facility] Imm /Inj (starting B 12 Visit Clinic [place] injections ) [address] [place] [phone] Social History Tobacco Use Types Packs/Day Years [...] as of this encounter Care Teams Director Center Relationship Specialty Start Date End Date Gina Bautista PCP - General Physician Radiology Special Procedure Tech 5 09/03/21 PA-C Gina Bautista, PCP - Assigned PCP 01/12/15 05/11/18 PA-C [facility] [address] [place] [address] Gina Bautista, Physician Radiology Special Procedure Tech 01/31/15 PA-C Gina Bautista, Assigned PCP 01/12/15 PA-C [facility] [address] [place] [address] documented as of this encounter
--- OUTSIDE RECORDS SUMMARY | 2022-01-21 16:05 | XMS_ITS | Encounter Summary ---
:1987 Author Organization [place] Address [facility] [place] [address] Care Team Providers Name Role Phone Gina Bautista PA-C Primary Care Provider [phone] Gina Bautista PA-C Unavailable Gina Bautista PA-C Unavailable Gina Bautista PA-C Unavailable Reason for Visit Reason Onset Date Comments Patient Request for Note/Letter 04/26/2015 Encounter Details Date Type Department Care Team Description 04/26/2015 Telephone [facility] Gina Bautista Request for Clinic [place] PA-[place] Note/Letter [address] [address] [facility] [place], [place] [address] [address] [place], [place] [id number] Social History Tobacco Use Types Packs/Day Years Used Date Smoking Tobacco: Never Smokeless Tobacco: Never Alcohol Use Standard Drinks/Week Comments Yes 0 (1 standard drink = 0.6 oz pure alcoho l) Sex Assigned at Date Recorded Not on file documented as of this encounter Miscellaneous Notes Telephone Encounter - Gina Bautista PA-C - 04/27/2015 8:14 AM PULLING UNIT FLOORHAND Note for patient provided for missed work, given to Meg. Gina Bautista PA-C ING UNIT FLOORHAND Telephone Encounter - Irma Boggs, RN - [...] pcp in office Thursday. Irma Boggs RN ING UNIT FLOORHAND documented in this encounter Plan of Treatment Not on filedocumented as of this encounter Visit Diagnoses Not on filedocumented in this encounter Additional Health Concerns Assessment Noted Time PHQ-9 Depression Total Score: 16 04/26/2015 8:54 AM CS T documented as of this encounter Care Teams Smasher Hand Relationship Specialty Start Date End Date Gina Bautista PCP - General Physician Lumber Estimator 5 09/03/21 PALiuC Gina Bautista, PCP - Assigned PCP 01/12/15 05/11/18 PAC [facility] [address] [place] [address] Gina Bautista, Physician Lumber Estimator 01/31/15 PALiuC Gina Bautista, Assigned PCP 01/12/15 [facility] [address] [place] [address] documented as of this encounter
--- OUTSIDE RECORDS SUMMARY | 2022-01-21 16:05 | XMS_ITS | Encounter Summary ---
:1985 Author Organization [place] Address [address] [place] [address] Care Team Providers Name Role Phone Gina Bautista PA-C Primary Care Provider Gina Bautista PA-C Unavailable Gina Bautista PA-C Unavailable [phone] Gina Bautista PA-C Unavailable Reason for Visit Reason Comments URI Encounter Details Date Type Department Care Team Description 06/25/2015 Office Visit [facility] Serum, Ro Viral URI (Primary Dx); Yony Yarbrough MD Acute pharyngitis, unspecified etiology [address] [place] [address] [place] [phone] [address] [place], [place] [address] Social History Tobacco Use [...] list, Allergies, and Medical/Social/Surgical histories reviewed in [facility] andupdated as appropriate. OBJECTIVE: BP 96/56 [...] Follow up with Provider - alexis Salgado [facility] [place] documented in this encounter Nursing [...] Component Value Ref Test Analysis Performed At [facility] Method Time Signature Specimen Throat [facility] [place] Culture Micro No Beta [place] Streptococcus CLINICS isolated [place] Micro Report FINAL 06/27/2015 [facility] [place] Specimen Anatomical Collection Method Collection Time Receive d Time (Source) Location / / Volume Laterality 06/25/2015 5:20 PM 6 5:25 CDT PM CDT Ro Salgado MD LAB - MICRO GENERAL ORDERABL ES Performing Organization Address City/State/ZIP Code Phon e Number [facility] [address] [place] [address] Strep, Rapid Screen (06/25/2015 5:20 PM CDT) Component Value Ref Test Analysis [facility] Method Time Signature Specimen Throat [facility] [place] Rapid Strep A NEGATIVE: No Group A strepto coccal antigen detected by immunoassay, await [place] Screen culture report. CLINICS [place] Micro Report FINAL 06/25/2015 [facility] [place] Specimen Anatomical Collection Method Collection Time Receive d Time (Source) Location / / Volume Laterality Specimen from 06/25/2015 5:20 PM 06/25/19 16 5:25 throat CDT PM CDT (specimen) Ro Salgado MD LAB - MICRO GENERAL ORDERABL ES Performing Organization Address City/State/ZIP Code Phon e Number [address] [address] documented in this encounter Visit Diagnoses Diagnosis Viral URI - Primary Acute upper respiratory infections of un specified site Acute pharyngitis, unspecified etiology documented in this encounter Additional Health Concerns Assessment Noted Time PHQ-9 Depression Total Score: 16 04/26/2015 8:54 AM CS T documented as of this encounter Care Teams Soap Drier Operator Relationship Specialty Start Date End Date Gina Bautista, PCP - General Physician Pneumatic Hoist Operator 5 09/03/21 PA-C Gina Bautista, PCP - Assigned PCP 01/12/15 05/11/18 PA-C [facility] [address] [place] [address] Gina Bautista, Physician Pneumatic Hoist Operator 01/31/15 PA-C Gina Bautista, Assigned PCP 01/12/15 PA-C [facility] [address] [place] [address] documented as of this encounter
--- OUTSIDE RECORDS SUMMARY | 2022-01-21 16:05 | XMS_ITS | Encounter Summary ---
:1985 Author Organization [place] Address [address] [place] [address]. [place] [address] Care Team Providers Name Role Phone Gina Bautista PA-C Primary Care Provider [phone] OestrGina daniels PA-C Unavailable Gina Bautista PA-C Unavailable OestrGina daniels PA-C Unavailable Reason for Visit Reason Comments IUD Encounter Details Date Type Department Care Team Description 01/27/2017 Office Visit [facility] Nadine Monreal Encou nter for IUD removal (Primary Dx); [facility] Encounter for preconception consultation [place] [address] [facility] [address] [place], [place] [address] [facility] [address] [place], [place] (Work) [address] [phone] Social History Tobacco Use Types Packs/Day Years Used Date Smoking Tobacco: Never Smokeless Tobacco: Never Alcohol Use Standard Drinks/Week Comments Yes 0 (1 standard drink = 0.6 oz pure alcoho l) Sex Assigned at Date Recorded Not on file documented as of this encounter Last Filed Vital Signs Vital Sign Reading Time Taken Comments Blood Pressure 100/60 01/27/2017 1:05 PM [facility] SPECIALIST Pulse - - Temperature - - Respiratory Rate - - Oxygen Saturation - - Inhaled Oxygen Concentration - - Weight 79.3 kg (174 lb 12.8 oz) 01/27/2017 1:05 PM [facility] SPECIALIST Height - - Body Mass Index 28.21 [...] muscle every 30 days vitamin D (ERGOCALCIFEROL) 95081 UNIT capsule Take 1 capsule (50,000 Units) [...] with hematology as needed. Nadine Monreal MD [facility] T SPECIALIST documented in this encounter Nursing Notes Nataliia [...] 12.8 oz (79.3 kg). Medication Reconciliation: complete T SPECIALIST documented in this encounter Plan of Treatment Not on filedocumented as of this encounter Procedures Procedure Name Priority Date/Time Associated Diagnosis Comme nts HC REMOVE INTRAUTERINE Routine 01/27/2017 1:33 PM Encounter fo r IUD DEVICE [facility] SPECIAL[facility] removal documented in this encounter Visit Diagnoses Diagnosis Encounter for IUD removal - Primary Encounter for removal of intrauterine co ntraceptive device Encounter for preconception consultation documented in this encounter Additional Health Concerns Assessment Noted Time PHQ-9 Depression Total Score: 7 12/19/2016 3:37 PM CDT documented as of this encounter Care Teams Pipe Blanks Cut Off Saw Operator Relationship Specialty Start Date End Date Gina Bautista, PCP - General Physician Geodetic Technician 5 09/03/21 PALiuC Gina Bautista, PCP - Assigned PCP 01/12/15 05/11/18 PAC [facility] [address] [place] [address] Gina Bautista, Physician Geodetic Technician 01/31/15 PA-C Gina Bautista, Assigned PCP 01/12/15 PAC [facility] [address] [place] [address] documented as of this encounter
--- OUTSIDE RECORDS SUMMARY | 2022-01-21 16:05 | XMS_ITS | Encounter Summary ---
:1987 Author Organization [place] Address [facility] [place] [address] Care Team Providers Name Role Phone Gina Bautista PA-C Primary Care Provider Gina Bautista PA-C Unavailable Gina Bautista PA-C Unavailable Gina Bautista PA-C Unavailable Reason for Visit Reason Comments Sinus Problem Encounter Details Date Type Department Care Team Description 07/27/2015 Office Visit [facility] Gina Bautista Acute recurrent Clinic Jigna Vance PA-C maxillary sinusitis [address] [facility] (Primary Dx) [place], [place] [address] [address] [place], [place] [phone] [address] Social History Tobacco Use Types Packs/Day Years [...] She has been treated twice by in [place] with Amoxicillin without relief No fever, very [...] the plan of care. Gina Bautista PA-C [facility] documented in this encounter Nursing Notes Monica [...] phone number for results from this visit [phone] OK to leave message Marianne Tony CMA [...] documented as of this encounter Care Teams Instructor Modeling Relationship Specialty Start Date End Date Gina Bautista PCP - General Physician Meter Changes Records Clerk 5 09/03/21 DOLORES Gina Bautista PCP - Assigned PCP 01/12/15 05/11/18 DOLORES [facility] [address] [place] [address] Gina Bautista, Physician Meter Changes Records Clerk 01/31/15 DOLORES Gina Bautista, Assigned PCP 01/12/15 DOLORES [facility] [address] [place], [place] [address] documented as of this encounter
--- OUTSIDE RECORDS SUMMARY | 2022-01-21 16:05 | XMS_ITS | Encounter Summary ---
:1987 Author Organization [place] Address [address] [place] [address]. [place] [address] Care Team Providers Name Role Phone Unavailable Primary Care Provider Unavailable Encounter Details Date Type Department Care Team Description 05/23/2005 Historic Results INTERFACED REPORT Aleksandra Carrizales MD [address] [address] (Wo rk) Social History Tobacco Use Types Packs/Day Years Used Date Smoking Tobacco: Never Assessed Sex Assigned at Date Recorded Not on file documented as of this encounter Plan of Treatment Not on filedocumented as of this encounter Procedures Procedure Name Priority Date/Time Associated Comments Diagnosis WET PREPARATION STAT 05/23/2005 9:45 AM Result s for this SINGLE STROKE PREFORMER procedure are i n the results section. NEISSERIA GONORRHOEAE STAT 05/23/2005 9:45 AM Results for this PCR SINGLE STROKE PREFORMER procedure are i n the results section. CHLAMYDIA TRACHOMATIS STAT 05/23/2005 9:45 AM Results for this PCR SINGLE STROKE PREFORMER procedure are i n the results section. HCG QUALITATIVE URINE STAT 05/23/2005 9:20 AM Results for this SINGLE STROKE PREFORMER procedure are i n the results section. ROUTINE UA WITH STAT 05/23/2005 9:20 AM Result s for this MICROSCOPIC SINGLE STROKE PREFORMER procedure are i n the results section. HEMOGRAM DIFFERENTIAL STAT 05/23/2005 7:35 AM Results for this AND PLATELET SINGLE STROKE PREFORMER procedure are i n the results section. BASIC METABOLIC PANEL STAT 05/23/2005 7:35 AM Results for this SINGLE STROKE PREFORMER procedure are i n the results section. documented in this encounter Results Chlamydia trachomatis PCR (05/23/2005 9:45 AM SINGLE STROKE PREFORMER) Component Value Ref Test Analysis Performed At [facility] Method Time Signature Specimen Cervical MISYS Description Chlamydia Negative for C. MISYS Trachomatis PCR trachomatis rRNA by telescope operator mediated amplification. Comment: A negative result by telescope operator medi ated amplification does not preclude the presence of C. trachomatis infection be cause results are dependent on proper and adequate collection, absence of inh ibitors, and sufficient rRNA to be detected. Specimen Anatomical Collection Method Collection Time Receive d Time (Source) Location / / Volume Laterality 05/23/2005 9:45 AM 6 SINGLE STROKE PREFORMER 10:02 AM SINGLE STROKE PREFORMER [facility] - MICRO GENERAL ORDERABL ES Performing Organization Address City/State/ZIP Code Phon e Number MISYS Neisseria gonorrhoeae PCR (05/23/2005 9:45 AM SINGLE STROKE PREFORMER) [facility] Method Time Signature Specimen Cervical MISYS Descrip N Gonorrhea Negative for N. MISYS PCR gonorrhoeae rRNA by telescope operator mediated amplification. Comment: A negative result by telescope operator medi ated amplification does not preclude the presence of N. gonorrhoeae infection be cause results are dependent on proper and adequate collection, absence of inh ibitors, and sufficient rRNA to be detected. Specimen Anatomical Collection Method Collection Time Receive d Time (Source) Location / / Volume Laterality 05/23/2005 9:45 AM 6 SINGLE STROKE PREFORMER 10:02 AM SINGLE STROKE PREFORMER Pediatrics [facility] [place] [facility] - MICRO GENERAL ORDERABL ES Performing Organization Address City/[facility]/ZIP Code Phon e Number MISYS Wet prep (05/23/2005 9:45 AM SINGLE STROKE PREFORMER) [facility] Method Time Signature Specimen Vagina MISYS Description Micro Report FINAL MISYS Status [id number] Wet Prep Few PMN'S MISYS seen Comment: No Trichomonas seen No yeast seen No clue cells seen Specimen Anatomical Collection Method Collection Time Receive d Time (Source) Location / / Volume Laterality 05/23/2005 9:45 AM 6 SINGLE STROKE PREFORMER 10:02 AM SINGLE STROKE PREFORMER Pediatrics [facility] [place] [facility] - MICRO GENERAL ORDERABL ES Performing Organization Address City/State/ZIP Code Phon e Number MISYS (ABNORMAL) Routine UA with microscopic (05/23/2005 9:20 AM SINGLE STROKE PREFORMER) [facility] Method Time Signature Source Midstream MISYS Urine Color Urine Yellow MISYS Appearance Urine Clear MISYS Glucose Urine Negative NEG mg/dL MISYS Bilirubin Urine Negative NEG MISYS Ketones Urine Negative NEG mg/dL MISYS Specific [place] 1.016 1.003 - MISYS Urine 1.035 Blood [...] Volume Laterality 05/23/2005 9:20 AM 6 7:48 SINGLE STROKE PREFORMER AM SINGLE STROKE PREFORMER [facility] - URINE ORDERABLES Performing Organization Address City/State/ZIP Code Phon e Number MISYS HCG qualitative urine (05/23/2005 9:20 AM SINGLE STROKE PREFORMER) P athologist Signature HCG Qual Urine Negative NEG MISYS Specimen Anatomical Collection Method Collection Time Receive d Time (Source) Location / / Volume Laterality 05/23/2005 9:20 AM 6 7:48 SINGLE STROKE PREFORMER AM SINGLE STROKE PREFORMER [facility] - URINE ORDERABLES Performing Organization Address City/[facility] Code Phon e Number MISYS (ABNORMAL) Hemogram differential and platelet (05/23/2005 7:35 AM SINGLE STROKE PREFORMER) [facility] gist Method Time Signature MCV 84 77 [...] Volume Laterality 05/23/2005 7:35 AM 6 7:48 SINGLE STROKE PREFORMER AM SINGLE STROKE PREFORMER [facility] - BLOOD ORDERABLES Performing Organization Address City/State/[facility] Code Phon e Number MISYS Basic metabolic panel (05/23/2005 7:35 AM SINGLE STROKE PREFORMER) P athologist Signature Sodium 141 133 - [...] Volume Laterality 05/23/2005 7:35 AM 6 7:48 SINGLE STROKE PREFORMER AM SINGLE STROKE PREFORMER [facility] - BLOOD ORDERABLES Performing Organization Address City/State/ZIP Code Phon e Number MISYS documented in this encounter Visit Diagnoses Not on filedocumented in this encounter
--- OUTSIDE RECORDS SUMMARY | 2022-01-21 16:05 | XMS_ITS | Encounter Summary ---
:1987 Author Organization [place] Address [address] [place] [address] Care Team Providers Name Role Phone Unavailable Primary Care Provider Unavailable Encounter Details Date Type Department Care Team Description 09/30/2005 Results Only [facility] [place] [address] (Wo rk) Social History Tobacco Use Types [...]
--- OUTSIDE RECORDS SUMMARY | 2022-01-21 16:05 | XMS_ITS | Encounter Summary ---
:1985 Author Organization [place] Address [address] [facility] [place] [address] Care Team Providers Name Role Phone Gina Bautista PA-C Primary Care Provider Gina Bautista PA-C Unavailable Gina Bautista PA-C Unavailable Gina Bautista PA-C Unavailable Reason for Visit Reason Comments Panel Management Needs PAP Encounter Details Date Type Department Care Team Description 03/13/2015 Documentation Only [facility] Lupillo Bautista [facility] [place] Gina Vance, (Needs PAP ) [address] [place], [place] [address] [address] [place], [place] [phone] [address] Social History Tobacco Use Types Packs/Day Years [...] for provider review: None Marianne Tony CMA (AAWV) 03/13/2015 3:48 PM POINT PENS ASSEMBLER documented in this encounter Plan of Treatment Not on filedocumented as of this encounter Visit Diagnoses Not on filedocumented in this encounter Additional Health Concerns Assessment Noted Time PHQ-9 Depression Total Score: 13 02/01/2015 7:29 AM CS T documented as of this encounter Care Teams Manager Wellness Relationship Specialty Start Date End Date Gina Bautista PCP - General Physician Vaccine Customer Representative 5 09/03/21 PA-C Gina Bautista, PCP - Assigned PCP 01/12/15 05/11/18 [facility] [address] [place] [address] Gina Bautista, Physician Vaccine Customer Representative 01/31/15 PA-C Gina Bautista, Assigned PCP 01/12/15 [facility] [address] [place] [address] documented as of this encounter
--- OUTSIDE RECORDS SUMMARY | 2022-01-21 16:05 | XMS_ITS | Encounter Summary ---
:1985 Author Organization [place] Address [address] [place] [address]. [place] [address] Care Team Providers Name Role Phone Unavailable Primary Care Provider Unavailable Encounter Details Date Type Department Care Team Description 07/21/2004 Historic Heel Cementer Machine INTERFACED REPORT Ilana Levy Social History Tobacco Use Types Packs/Day Years Used Date Smoking Tobacco: Never Assessed Sex Assigned at Date Recorded Not on file documented as of this encounter Progress Notes Interface, Heel Cementer Machine - 02/12/2011 3:18 AM PAINT PROCESS ENGINEER : 89 CHIEF COMPLAINT: Ankle and knee [...] EPIDEMIOLOGIC HISTORY: Patient attends school. They visited [place] in May 2004. PHYSICAL EXAMINATION: VITAL SIGNS: [...] appointment. [id number] KELLIE LEVY MD [place]: Document: [id number] CC: KELLIE LEVY MD [place], [place] Name: MR#: CARLEY CHAN -[id number] EMERGENCY ROOM ENCOUNTER Page 2 of 2 LCN: MARY JANE DSC: 07/21/2004 [place], [place] Name: MR#: CARLEY CHAN -23 : Admit Date: Account #: 1985 07/21/2004 [id number] Doctor: KELLIE LEVY MD EMERGENCY ROOM ENCOUNTER Page 1 of 2 T PROCESS ENGINEER documented in this encounter Plan of Treatment Not on filedocumented as of this encounter Visit Diagnoses Not on filedocumented in this encounter
--- OUTSIDE RECORDS SUMMARY | 2022-01-21 16:05 | XMS_ITS | Encounter Summary ---
:1985 Author Organization [place] Address [address] [place] [address] Care Team Providers Name Role Phone Gina Bautista PA-C Primary Care Provider [phone] OestrGina daniels PA-C Unavailable Gina Bautista PA-C Unavailable [phone] Gina Bautista PA-C Unavailable Encounter Details Date Type Department Care Team Description 04/27/2015 Orders Only [facility] Iro n deficiency anemia, [place] [facility] unspecified iron [address] [place] [address] Social History Tobacco Use Types Packs/Day [...] deficiency Resu lts for this BINDING CAPACITY WARM IN anemia, unspecified proc edure are in iron deficiency the results section. FERRITIN Routine 04/27/2015 11:50 AM Iron deficiency Resul ts for this WARM IN anemia, unspecified procedur e are in iron deficiency the results section. documented in this encounter Results (ABNORMAL) Iron and iron binding capacity (04/27/2015 11:50 AM WARM IN) Patholo gist Method Time Signature Iron 13 (L) 35 - 180 [facility]dL [facility] Iron Binding 619 (H) 240 - 430 [place] Cap ug/dL [facility] Iron Saturation 2 (L) 15 - 46 % [place] Index CLINICS [facility] Specimen Anatomical Collection Method Collection Time Receive d Time (Source) Location / / Volume Laterality Blood specimen 04/27/2015 11:50 6 (specimen) AM WARM IN 11:51 AM WARM IN Gina Bautista PA-C LAB - BLOOD ORDERABLES Performing Organization Address City/[facility]/ZIP Code Phon e Number [facility] [address], [place] [address] (ABNORMAL) Ferritin (04/27/2015 11:50 AM WARM IN) P athologist Signature Ferritin 2 (L) 12 - 150 [facility] ng/mL [facility] Specimen Anatomical Collection Method Collection Time Receive d Time (Source) Location / / Volume Laterality Blood specimen 04/27/2015 11:50 6 (specimen) AM WARM IN 11:51 AM WARM IN Gina Bautista PA-C LAB - BLOOD ORDERABLES Performing Organization Address City/[facility]/ZIP Code Phon e Number [facility] [address], [place] [address] documented in this encounter Visit Diagnoses Diagnosis Iron deficiency anemia, unspecified iron deficiency documented in this encounter Additional Health Concerns Assessment Noted Time PHQ-9 Depression Total Score: 16 04/26/2015 8:54 AM CS T documented as of this encounter Care Teams Farm Crew Leader Relationship Specialty Start Date End Date Gina Bautista PCP - General Physician Glass Blower 5 09/03/21 DOLORES Gina Bautista PCP - Assigned PCP 01/12/15 05/11/18 [facility] [address] [place] [address] Gina Bautista, Physician Glass Blower 01/31/15 [place]OLOR[place] Gina Bautista, Assigned PCP 01/12/15 [facility] [address] [place] [address] documented as of this encounter
--- OUTSIDE RECORDS SUMMARY | 2022-01-21 16:05 | XMS_ITS | Encounter Summary ---
:1985 Author Organization [place] Address [facility] [facility] [address] Care Team Providers Name Role Phone Gina Bautista PA-C Primary Care Provider [phone] Gina Bautista PA-C Unavailable Gina Bautista PA-C Unavailable Gina Bautista PA-C Unavailable Encounter Details Date Type Department Care Team Description 04/27/2015 Telephone [facility] Lyle Bautista PA-C [address] [place] [address] [address] [phone] [place], [place] [address] (Wo rk) Social History Tobacco Use Types Packs/Day Years Used Date Smoking Tobacco: Never Smokeless Tobacco: Never Alcohol Use Standard Drinks/Week Comments Yes 0 (1 standard drink = 0.6 oz pure alcoho l) Sex Assigned at Date Recorded Not on file documented as of this encounter Miscellaneous Notes Telephone Encounter - Gina Bautista PA-C - 04/27/2015 8:25 AM SUPERVISOR CELL ROOM Spoke with patient regarding labs. Will restart Synthroid 75mcg daily, recheck in 6-8 weeks Discussed low hemoglobin, will have her get labs today and then start iron replacement BID, recheck in 6-8 weeks as well. Discussed remained of labs. Gina Bautista PA-C RVISOR CELL ROOM Telephone Encounter - Monica Tony CMA - 04/27/2015 8:20 AM CST Per patient, placed letter at senior front end web developer for patient corn picker Marianne Chavo CAMPOS (AANY) 04/27/2015 8:21 AM RVISOR CELL ROOM Telephone Encounter - Gina Bautista PA-C - 04/27/2015 8:13 AM SUPERVISOR CELL ROOM Left Vm for patient, would like to discuss labs results. Gina Bautista PA-C RVISOR CELL ROOM documented in this encounter Plan of Treatment Not on filedocumented as of this encounter Visit Diagnoses Not on filedocumented in this encounter Additional Health Concerns Assessment Noted Time PHQ-9 Depression Total Score: 16 04/26/2015 8:54 AM CS T documented as of this encounter Care Teams Supervisor Mechanic Boilermaking Relationship Specialty Start Date End Date Gina Bautista PCP - General Physician Efficiency Miner Blasting 5 09/03/21 DOLORES Gina Bautista PCP - Assigned PCP 01/12/15 05/11/[address] [facility] [address] [place] [address] Gina Bautista Physician Efficiency Miner Blasting 01/31/15 [place]OLOR[place] Gina Bautista, Assigned PCP 01/12/[address] [facility] [address] [place] [address] documented as of this encounter
--- OUTSIDE RECORDS SUMMARY | 2022-01-21 16:05 | XMS_ITS | Encounter Summary ---
:1985 Author Organization [place] Address [address] [place] [address] Care Team Providers Name Role Phone Unavailable Primary Care Provider Unavailable Encounter Details Date Type Department Care Team Description 05/23/2005 Emergency room Glory Kraft EMERGENCY PHYSIC JED [facility]IRE[place] [address] [place] [address] (Wo rk) Social History Tobacco Use Types Packs/Day Years Used Date Smoking Tobacco: Never Assessed Sex Assigned at Date Recorded Not on file documented as of this encounter Progress Notes Interface, Thermoplastic Technician - 05/24/2005 10:20 PM MOLECULAR MODELER FINAL CHIEF COMPLAINT: Left lower quadrant pain. [...] home. Tylenol No. 3 for discomfort, Motrin [id number]. Follow up with primary care physician in 3-5 days, clear liquids x8 hours and advance diet as tolerated. Return to emergency department if symptoms get worse. Electronically signed on 05/24/2005 22:19 by GLORY KRAFT MD [place]: [id number] Name: CARLEY CHAN MRN: -[id number] Account: [id number] : 1985 Visit Date: 05/23/2005 Document: [id number] cc: [facility] CULAR MODELER Interface, Thermoplastic Technician - 05/24/2005 3:26 PM MOLECULAR MODELER PRELIMINARY CHIEF COMPLAINT: Left lower quadrant pain. [...] home. Tylenol No. 3 for discomfort, Motrin [id number]. Follow up with primary care physician in 3-5 days, clear liquids x8 hours and advance diet as tolerated. Return to emergency department if symptoms get worse. GLORY KRAFT MD [place]: [id number] Name: CARLEY CHAN Account: [id number] : 1985 Visit Date: 05/23/2005 Document: [id number] cc: [facility] CULAR MODELER documented in this encounter Plan of Treatment Not on filedocumented as of this encounter Visit Diagnoses Not on filedocumented in this encounter
--- OUTSIDE RECORDS SUMMARY | 2022-01-21 16:05 | XMS_ITS | Encounter Summary ---
:1985 Author Organization [place] Address [address] [place] [address]. 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; [place], [facility] Adjustment disorder with depressed mood; [phone] Iron deficiency anemia, unspecified iron deficiency [phone] [place] [address] Social History Tobacco Use Types Packs/Day Years Used Date Smoking Tobacco: Never Smokeless Tobacco: Never Alcohol Use Standard Drinks/Week Comments Yes 0 (1 standard drink = 0.6 oz pure alcoho l) Sex Assigned at Date Recorded Not on file documented as of this encounter Last Filed Vital Signs Vital Sign Reading Time Taken Comments Blood Pressure 126/62 04/25/2015 1:02 PM TWITCHELL OPERATOR Pulse 80 04/25/2015 1:02 PM TWITCHELL OPERATOR Temperature 36.6 ??C (97.9 ??F) 04/25/2015 1:02 PM TWITCHELL OPERATOR Respiratory Rate 16 04/25/2015 1:02 PM TWITCHELL OPERATOR Oxygen Saturation 100% 04/25/2015 1:02 PM TWITCHELL OPERATOR Inhaled Oxygen Concentration - - Weight 82.1 kg (181 lb) 04/25/2015 1:02 PM TWITCHELL OPERATOR Height 167 cm (5' 5.75) 04/25/2015 1:02 PM TWITCHELL OPERATOR Body Mass Index 29.44 04/25/2015 1:02 PM TWITCHELL OPERATOR documented in this encounter Patient Instructions Patient [...] months for an exam and cleaning. ?? CHELL OPERATOR documented in this encounter Progress Notes Gina Palmubo PA-C - 04/25/2015 8:24 AM CST SUBJECTIVE: [...] Maxwell and colleagues,with an educational kenia from [employer].) 04/25/2015 01/31/2015 Q1: Little interest or pleasure [...] LDL, TRIG, CHOLHDLRATIO, NHDL in the last 85295 hours. Reviewed orders with patient. Reviewed health maintenance and updated orders accordingly - Yes Mammo Decision Support: Mammogram not appropriate for this patient based on age. Last Mammo:No results found. History of abnormal Pap smear: NO - age 21-29 PAP every 3 years recommended All Histories reviewed and updated in [facility]. 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 Patient Active [...] Preventive Guidelines Dietary Guidelines for Americans, 2010 [employer] My[employer]ate Gina Palumbo PA-C [facility] CHELL OPERATOR documented in this encounter Nursing Notes Monica [...] phone number for results from this visit [phone] OK to leave message Marianne Tony CMA (AAMA) 04/25/2015 1:03 PM CHELL OPERATOR documented in this encounter Miscellaneous Notes Addendum Note - Gina Palumbo PA-C - 04/27/2015 8:25 AM TWITCHELL OPERATOR Addended by: GINA PALUMBO on: 04/27/2015 08:25 AM Modules accepted: Orders CHELL OPERATOR documented in this encounter Plan of Treatment Not on filedocumented as of this encounter Procedures Procedure Name Priority Date/Time Associated Comments Diagnosis UA MACROSCOPIC WITH Routine 04/25/2015 12:44 Encounter for Res ults for this REFLEX TO MICROSCOPIC PM TWITCHELL OPERATOR routine adult proce dure are in AND CULTURE physical exam with the resul ts abnormal findings section. documented in this encounter Results (ABNORMAL) Iron and iron binding capacity (04/27/2015 11:50 AM TWITCHELL OPERATOR) Patholo gist Method Time Signature Iron 13 (L) 35 - 180 [facility] ug/dL [facility] Iron Binding 619 (H) 240 - 430 [place] Cap ug/dL [facility] Iron Saturation 2 (L) 15 - 46 % [place] Index CLINICS [facility] Specimen Anatomical Collection Method Collection Time Receive d Time (Source) Location / / Volume Laterality Blood specimen 04/27/2015 11:50 6 (specimen) AM TWITCHELL OPERATOR 11:51 AM TWITCHELL OPERATOR Gina Palumbo PA-C LAB - BLOOD ORDERABLES Performing Organization Address City/[facility]/ZIP Code Phon e Number [facility] [address] [place] [address] (ABNORMAL) Ferritin (04/27/2015 11:50 AM TWITCHELL OPERATOR) P athologist Signature Ferritin 2 (L) 12 - 150 [facility] ng/mL [facility] Specimen Anatomical Collection Method Collection Time Receive d Time (Source) Location / / Volume Laterality Blood specimen 04/27/2015 11:50 6 (specimen) AM TWITCHELL OPERATOR 11:51 AM TWITCHELL OPERATOR Gina Palumbo PA-C LAB - BLOOD ORDERABLES Performing Organization Address City/[facility]/ZIP Code Phon e Number [facility] [address] [place] [address] (ABNORMAL) TSH with free T4 reflex (04/26/2015 8:26 AM TWITCHELL OPERATOR) P athologist Signature TSH 7.92 (H) 0.40 - [facility] 4.00 mU/L [facility] Specimen Anatomical Collection Method Collection Time Receive d Time (Source) Location / / Volume Laterality Blood specimen 04/26/2015 8:26 AM 016 8:27 (specimen) TWITCHELL OPERATOR AM TWITCHELL OPERATOR Gina Palumbo PA-C LAB - BLOOD ORDERABLES Performing Organization Address City/[facility]/ZIP Code Phon e Number [facility] [address] [place] [phone] (ABNORMAL) Comprehensive metabolic panel (04/26/2015 8:26 AM TWITCHELL OPERATOR) [facility] gist Method Time Signature Sodium 140 133 - 144 [place] mmol/L [facility] Potassium 4.1 3.4 - 5.3 [place] mmol/L [facility] Chloride 109 94 - 109 [place] mmol/L [facility] Carbon Dioxide 23 20 - 32 [place] mmol/L [facility] Anion Gap 8 3 - 14 [place] mmol/L [facility] Glucose 87 70 - 99 [place] mg/dL [facility] Urea Nitrogen 10 7 - 30 [place] mg/dL [facility] Creatinine 0.74 0.52 - [place] 1.04 [facility] mg/dL [facility] GFR Estimate >90 >60 [place] Non GFR Calc mL/min/1. CLINICS 7m2 [facility] GFR Estimate If >90 >60 [place] Black GFR Calc mL/min/1. CLIN ICS 7m2 [facility] Calcium 8.3 (L) 8.5 - [place] 10.1 [facility] mg/dL [facility] Bilirubin Total 0.5 0.2 - 1.3 [place] mg/dL [facility] Albumin 3.8 3.4 - 5.0 [place] g/dL [facility] Protein Total 7.4 6.8 - 8.8 [place] g/dL [facility] Alkaline 71 40 - 150 [place] Phosphatase U/L [facility] ALT 19 0 - 50 [place] U/L [facility] AST 14 0 - 45 [place] U/L [facility] Specimen Anatomical Collection Method Collection Time Receive d Time (Source) Location / / Volume Laterality Blood specimen 04/26/2015 8:26 AM 016 8:27 (specimen) TWITCHELL OPERATOR AM TWITCHELL OPERATOR Gina Palumbo PA-C LAB - BLOOD ORDERABLES Performing Organization Address City/State/ZIP Code Phon e Number [facility] [address] [place] [address] (ABNORMAL) CBC with platelets (04/26/2015 8:26 AM TWITCHELL OPERATOR) athologist Signature WBC 4.7 4.0 - 11.0 [place] 10e9/L [facility] RBC Count 4.41 3.8 - 5.2 [place] 10e12/L [facility] [place] Hemoglobin 8.4 (L) 11.7 - 15.7 [place] g/dL [facility] [place] Comment: Results confirmed by repeat mónica t Hematocrit 29.1 (L) 35.0 - 47.0 % [facility] [place] MCV 66 (L) 78 - 100 fl [facility] R [place] MCH 19.0 (L) 26.5 - 33.0 pg [facility] [place] MCHC 28.9 (L) 31.5 - 36.5 g/dL [place] [facility] [place] Comment: Results confirmed by repeat mónica t RDW 16.7 (H) 10.0 - 15.0 % [facility] Platelet Count 321 150 - 450 10e9/L [facility] Specimen Anatomical Collection Method Collection Time Receive d Time (Source) Location / / Volume Laterality Blood specimen 04/26/2015 8:26 AM 016 8:27 (specimen) TWITCHELL OPERATOR AM TWITCHELL OPERATOR Gina Palumbo PA-C LAB - BLOOD ORDERABLES Performing Organization Address City/State/ZIP Code Phon e Number [facility] [address] [place] [address] LIPID REFLEX TO DIRECT LDL PANEL (04/26/2015 8:26 AM TWITCHELL OPERATOR) athologist Signature Cholesterol 109 <200 mg/dL [facility] Triglycerides 70 <150 mg/dL [facility] Comment: Fasting specimen HDL Cholesterol 54 >49 mg/dL [place] CLINI CS [facility] LDL Cholesterol Calculated 41 <100 mg/dL [facility] Comment: Desirable: <100 mg/dl Non HDL Cholesterol 55 <130 mg/dL [facility] Specimen Anatomical Collection Method Collection Time Receive d Time (Source) Location / / Volume Laterality Blood specimen 04/26/2015 8:26 AM 016 8:27 (specimen) TWITCHELL OPERATOR AM TWITCHELL OPERATOR Gina Palumbo PA-C LAB - BLOOD ORDERABLES Performing Organization Address City/[facility]/ZIP Code Phon e Number [facility] [address] [place] [address] UA reflex to Microscopic and Culture (04/25/2015 12:44 PM TWITCHELL OPERATOR) [facility] Method Time Signature Color Urine Yellow [place] [facility] Appearance Urine Clear [place] [facility] Glucose Urine Negative NEG mg/dL [place] [facility] [place] Bilirubin Urine Negative NEG [place] [facility] [place] Ketones Urine Negative NEG mg/dL [place] [facility] [place] Specific [place] 1.025 1.003 - [place] Urine 1.035 [facility] [place] Blood Urine Negative NEG [place] [facility] [place] pH Urine 5.5 5.0 - 7.0 [place] pH [facility] [place] Protein Albumin Negative NEG mg/dL [place] Urine [facility] [place] Urobilinogen 0.2 0.2 - 1.0 [place] Urine EU/dL [facility] [place] Nitrite Urine Negative NEG [facility] [place] Leukocyte Negative NEG [place] Esterase Urine [facility] [place] Source Midstream [place] Urine [facility] [place] Specimen Anatomical Collection Method Collection Time Receive d Time (Source) Location / / Volume Laterality Urine specimen 04/25/2015 12:44 6 (specimen) PM TWITCHELL OPERATOR 12:45 PM TWITCHELL OPERATOR Gina Palumbo PA-C LAB - URINE ORDERABLES Performing Organization Address [facility]/ZIP Code Phon e Number [facility] [address] [place], [place] [address] documented in this encounter [...] as of this encounter Care Teams Security Tech Relationship Specialty Start Date End Date Gina Palumbo PCP - General Physician Road Equipment Operator 5 09/03/21 DOLORES Gina Palumbo PCP - Assigned PCP 01/12/15 05/11/18 [facility] [address] [place] [address] Gina Palumbo, Physician Road Equipment Operator 01/31/15 DOLORES Gina Palumbo, Assigned PCP 01/12/15 PA-C [facility] [address] [place] [address] documented as of this encounter
--- OUTSIDE RECORDS SUMMARY | 2022-01-21 16:05 | XMS_ITS | Encounter Summary ---
:1985 Author Organization [place] Address [address] [place] [id number] Care Team Providers Name Role Phone Gina Bautista PA-C Primary Care Provider [phone] Gina Bautista PA-C Unavailable Gina Bautista PA-C Unavailable Gina Bautista PA-C Unavailable Encounter Details Date Type Department Care Team Description 04/26/2015 Orders Only [facility] Enc ounter for routine adult physical exam with abnormal findings; [facility] Overweight; [address] Hypothyroidism due to acquir ed atrophy of thyroid [place] [address] Social History Tobacco Use Types Packs/Day [...] Encounter for Resu lts for this REFLEX PUBLIC ACCOUNTANT routine adult procedure are in physical exam with the resul ts abnormal finding s section. Hypothyroidism due to acquired atrophy of thyroid T4 FREE Routine 04/26/2015 8:26 AM Encounter for Results for this PUBLIC ACCOUNTANT routine adult procedure are in physical exam with the resul ts abnormal findings section. LIPID REFLEX TO DIRECT Routine 04/26/2015 8:26 AM Encounter fo r Results for this LDL PANEL PUBLIC ACCOUNTANT routine adult procedure are in physical exam with the resul ts abnormal findings section. COMPREHENSIVE Routine 04/26/2015 8:26 AM Encounter for Results for this METABOLIC PANEL PUBLIC ACCOUNTANT routine adult procedure a re in physical exam with the resul ts abnormal finding s section. Overweight CBC WITH PLATELETS Routine 04/26/2015 8:26 AM Encounter for Re sults for this PUBLIC ACCOUNTANT routine adult procedure are in physical exam with the resul ts abnormal findings section. documented in this encounter Results T4 free (04/26/2015 8:26 AM PUBLIC ACCOUNTANT) athologist Signature T4 Free 0.98 0.76 - 1.46 [facility] ng/dL [facility] [place] Specimen Anatomical Collection Method Collection Time Receive d Time (Source) Location / / Volume Laterality 04/26/2015 8:26 AM 6 8:27 PUBLIC ACCOUNTANT AM PUBLIC ACCOUNTANT Gina Bautista PA-C LAB - BLOOD ORDERABLES Performing Organization Address City/State/ZIP Code Phon e Number [facility] [address] [place] [address] (ABNORMAL) CBC with platelets (04/26/2015 8:26 AM PUBLIC ACCOUNTANT) athologist Signature WBC 4.7 4.0 - 11.0 [place] 10e9/L [facility] [place] RBC Count 4.41 3.8 - 5.2 [place] 10e12/L [facility] [place] Hemoglobin 8.4 (L) 11.7 - 15.7 [place] g/dL [facility] [place] Comment: Results confirmed by repeat mónica t Hematocrit 29.1 (L) 35.0 - 47.0 % [facility] [place] MCV 66 (L) 78 - 100 fl [facility] [place] MCH 19.0 (L) 26.5 - 33.0 pg [facility] [place] MCHC 28.9 (L) 31.5 - 36.5 g/dL [place] [facility] [place] Comment: Results confirmed by repeat mónica t RDW 16.7 (H) 10.0 - 15.0 % [facility] [place] Platelet Count 321 150 - 450 10e9/L [facility] [place] Specimen Anatomical Collection Method Collection Time Receive d Time (Source) Location / / Volume Laterality Blood specimen 04/26/2015 8:26 AM 016 8:27 (specimen) PUBLIC ACCOUNTANT AM PUBLIC ACCOUNTANT Gina RAMIREZ-C LAB - BLOOD ORDERABLES Performing Organization Address City/[facility]/ZIP Code Phon e Number [facility] [address] [address] LIPID REFLEX TO DIRECT LDL PANEL (04/26/2015 8:26 AM PUBLIC ACCOUNTANT) P athologist Signature Cholesterol 109 <200 mg/dL [facility] Triglycerides 70 <150 mg/dL [facility] S [facility] Comment: Fasting specimen HDL Cholesterol 54 >49 mg/dL [place] [facility] CS [facility] [place] LDL Cholesterol Calculated 41 <100 mg/dL [facility] Comment: Desirable: <100 mg/dl Non HDL Cholesterol 55 <130 mg/dL [facility] Specimen Anatomical Collection Method Collection Time Receive d Time (Source) Location / / Volume Laterality Blood specimen 04/26/2015 8:26 AM 016 8:27 (specimen) PUBLIC ACCOUNTANT AM PUBLIC ACCOUNTANT Gina RAMIREZ-C LAB - BLOOD ORDERABLES Performing Organization Address [facility]/ZIP Code Phon e Number [facility] [address] [place] [address] (ABNORMAL) TSH with free T4 reflex (04/26/2015 8:26 AM PUBLIC ACCOUNTANT) P athologist Signature TSH 7.92 (H) 0.40 - [facility] 4.00 mU/L [facility] Specimen Anatomical Collection Method Collection Time Receive d Time (Source) Location / / Volume Laterality Blood specimen 04/26/2015 8:26 AM 016 8:27 (specimen) PUBLIC ACCOUNTANT AM PUBLIC ACCOUNTANT Gina RAMIREZ-C LAB - BLOOD ORDERABLES Performing Organization Address City/[facility]/ZIP Code Phon e Number [facility] [address] [place] [address] (ABNORMAL) Comprehensive metabolic panel (04/26/2015 8:26 AM PUBLIC ACCOUNTANT) [facility] gist Method Time Signature Sodium 140 133 - 144 [place] mmol/L [facility] Potassium 4.1 3.4 - 5.3 [place] mmol/L [facility] Chloride 109 94 - 109 [place] mmol/L [facility] Carbon Dioxide 23 20 - 32 [place] mmol/L [facility] Anion Gap 8 3 - 14 [place] mmol/L [facility] Glucose 87 70 - 99 [place] mg/dL [facility] Urea Nitrogen 10 7 - 30 [place] mg/dL [facility] Creatinine 0.74 0.52 - [place] 1.04 [facility] mg/dL [facility] GFR Estimate >90 >60 [place] Non GFR Calc mL/min/1. CLINICS [address] [facility] GFR Estimate If >90 >60 [place] Black GFR Calc mL/min/1. CLIN ICS 7m[address] [facility] Calcium 8.3 (L) 8.5 - [place] 10.1 [facility] mg/dL [facility] Bilirubin Total 0.5 0.2 - 1.3 [place] mg/dL [facility] Albumin 3.8 3.4 - 5.0 [place] g/dL [facility] Protein Total 7.4 6.8 - 8.8 [place] g/dL [facility] Alkaline 71 40 - 150 [place] Phosphatase U/L [facility] ALT 19 0 - 50 [place] U/L [facility] AST 14 0 - 45 [place] U/L [facility] Specimen Anatomical Collection Method Collection Time Receive d Time (Source) Location / / Volume Laterality Blood specimen 04/26/2015 8:26 AM 016 8:27 (specimen) PUBLIC ACCOUNTANT AM PUBLIC ACCOUNTANT Gina Bautista PA-C LAB - BLOOD ORDERABLES Performing Organization Address City/State/ZIP Code Phon e Number [facility] [address] [place] [address] documented in this encounter Visit Diagnoses Diagnosis Encounter for routine adult physical exa m with abnormal findings Overweight 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 documented in this encounter Additional Health Concerns Assessment Noted Time PHQ-9 Depression Total Score: 16 04/26/2015 8:54 AM CS T documented as of this encounter Care Teams Manager Play Relationship Specialty Start Date End Date Gina Bautista PCP - General Physician Optometric Coordinator 5 09/03/21 PA-C Gina Bautista PCP - Assigned PCP 01/12/15 05/11/18 PA-C [facility] [address] [place] [address] Gina Bautista, Physician Optometric Coordinator 01/31/15 PA-C Gina Bautista, Assigned PCP 01/12/15 PA-C [facility] [address] [place] [address] documented as of this encounter
--- OUTSIDE RECORDS SUMMARY | 2022-01-21 16:05 | XMS_ITS | Encounter Summary ---
:1985 Author Organization [place] Address [address] [place] [address]. [place] [address] Care Team Providers Name Role Phone Gina Palumbo PA-C Primary Care Provider Gina Palumbo PA-C Unavailable Gina Palumbo PA-C Unavailable Gina Palumbo PA-C Unavailable Reason for Referral Consultation - Closed Specialty Diagnoses / Procedures Referred By Contact Refer red To Contact Diagnoses Low hemoglobin S/P gastric bypass Vitamin B 12 deficiency Gina Palumbo [facility] HEMATOLOGY [facility] [address] [place] [address] [place] [address] [place] [address] Phone: [phone] Fax: Referral ID Status Reason Start Date Expiration Date Visits Requ ested Visits Authorized [id number] Closed 12/24/2016 12/24/2017 1 1 TETRYL BOILING TUB OPERATOR - Closed Specialty Diagnoses / Procedures Referred By Contact Refer red To Contact Diagnoses Family planning counseling IUD check up Gina Palumbo [facility] V[facility] [address] [facility] [address] [place] [address] [place] [address] [place] [address] Fax: Referral ID Status Reason Start Date Expiration Date Visits Requ ested Visits Authorized [id number] Closed 12/19/2016 12/19/2017 1 1 Reason for Visit Reason Comments Physical Flu Shot Encounter Details Date Type Department Care Team Description 12/19/2016 Office Visit [facility] Michele, Routine ge neral medical examination at a health care facility (Primary Dx); [facility] Gina Vance, 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 - TETRYL BOILING TUB OPERATOR REFERRAL 9. Family planning counseling Patient interested in future , was high risk in past, had 4 miscarriages. Will refer to TETRYL BOILING TUB OPERATOR to discuss future conception. - TETRYL BOILING TUB OPERATOR REFERRAL 10. Need for prophylactic vaccination and inoculation against influenza - FLU VAC, SPLIT VIRUS IM > 3 YO (QUADRIVALENT) [23718] - Vaccine Administration, Initial [94069] COUNSELING: Reviewed preventive health counseling, as reflected [...] hemoglobin and mood issues. Gina Palumbo PA-C [facility] [place] Answers for HPI/ROS submitted [...] Type Priority Associated Diagnoses Order S chedule TETRYL BOILING TUB OPERATOR REFERRAL Referral Routine Family planning Ordered: [...] or this PM CDT medical examination at [facility] are in a health care [...] or this PM CDT medical examination at [facility] are in a health care [...] T4 reflex FUTURE 2mo (04/10/2017 2:35 PM FLOOR COVERINGS INSTALLER) athologist Signature TSH 10.56 (H) 0.40 - 04/12/2017 [facility] 4.00 mU/L 1:[address] [facility] Specimen Anatomical Collection Method Collection Time Receive d Time (Source) Location / / Volume Laterality Blood specimen 04/10/2017 2:35 PM 018 2:36 (specimen) FLOOR COVERINGS INSTALLER PM FLOOR COVERINGS INSTALLER Gina Palumbo PA-C LAB - BLOOD ORDERABLES Performing Organization Address City/State/ZIP Code Phon e Number [facility] [address] [place] [address] (ABNORMAL) Vitamin D Deficiency (04/10/2017 2:35 PM FLOOR COVERINGS INSTALLER) athologist Signature Vitamin D 13 (L) 20 - 75 04/11/2017 [facility] Deficiency ug/L 11:46 AM FLOOR COVERINGS INSTALLER [facility] Comment: Season, race, dietary intake, and treatm ent affect the concentration of 61-wewrlbq-Mpwxtub D. Values may decreas e during winter [...] specimen 04/10/2017 2:35 PM 018 2:36 (specimen) FLOOR COVERINGS INSTALLER PM FLOOR COVERINGS INSTALLER Gina Palumbo PA-C LAB - BLOOD ORDERABLES Performing Organization Address City/State/ZIP Code Phon e Number [facility] [address] [place] [address] [facility] T4 free (12/19/2016 3:33 PM CDT) P athologist Signature T4 Free 1.00 0.76 - 1.46 12/20/2016 [facility] ng/dL 1:20 PM CDT [facility] Specimen Anatomical Collection Method Collection Time Receive d Time (Source) Location / / Volume Laterality 12/19/2016 3:33 PM 7 3:34 CDT PM CDT Gina Palumbo PA-C LAB - BLOOD ORDERABLES Performing Organization Address City/[facility]/ZIP Code Phon e Number [facility] [address] [place] [address] WBC Differential (12/19/2016 3:33 PM CDT) [facility] gist Method Time Signature Diff Method Automated 12/19/2016 [place] Method 9:06 PM [facility] % Neutrophils 64.0 % 12/19/2016 [facility] 9:06 PM [facility] % Lymphocytes 25.2 % 12/19/2016 [facility] 9:06 PM [facility] % Monocytes 7.7 % 12/19/2016 [facility] 9:06 PM [facility] % Eosinophils 2.3 % 12/19/2016 [facility] 9:06 PM [facility] % Basophils 0.5 % 12/19/2016 [facility] 9:06 PM [facility] % Immature 0.3 % 12/19/2016 [facility] Granulocytes 9:06 PM [facility] Nucleated RBCs 0 0 /100 12/19/2016 [facility] 9:06 PM [facility] Absolute 4.2 1.6 - 8.3 12/19/2016 [facility] Neutrophil 10e9/L 9:06 PM [facility] Absolute 1.7 0.8 - 5.3 12/19/2016 [facility] Lymphocytes 10e9/L 9:06 PM [facility] Absolute 0.5 0.0 - 1.3 12/19/2016 [facility] Monocytes 10e9/L 9:06 PM [facility] Absolute 0.2 0.0 - 0.7 12/19/2016 [facility] Eosinophils 10e9/L 9:06 PM [facility] Absolute 0.0 0.0 - 0.2 12/19/2016 [facility] Basophils 10e9/L 9:06 PM [facility] Abs Immature 0.0 0 - 0.4 12/19/2016 [facility] Granulocytes 10e9/L 9:06 PM [facility] Absolute 0.0 12/19/2016 [facility] Nucleated RBC 9:06 PM [facility] Anisocytosis Slight 12/19/2016 [facility] 9:06 PM [facility] Ovalocytes Slight 12/19/2016 [facility] 9:06 PM [facility] Microcytes Present 12/19/2016 [facility] 9:06 PM [facility] Platelet Normal 12/19/2016 [facility] Estimate 9:06 PM [facility] Specimen Anatomical Collection Method Collection Time Receive d Time (Source) Location / / Volume Laterality 12/19/2016 3:33 PM 7 4:07 CDT PM CDT Gina Palumbo PA-C LAB - BLOOD ORDERABLES Performing Organization Address City/State/ZIP Code Phon e Number [place] [address] [address] [facility] [address] [phone] Reticulocyte Count (12/19/2016 3:33 PM CDT) P athologist Signature % Retic 1.1 0.5 - 2.0 12/19/2016 [place] % 7:25 PM [facility] Absolute Retic 43.0 25 - 95 12/19/2016 [facility] 10[facility]9/L 7:25 PM [facility] Specimen Anatomical Collection Method Collection Time Receive d Time (Source) Location / / Volume Laterality Blood specimen 12/19/2016 3:33 PM 017 4:07 (specimen) CDT PM CDT Gina Palumbo PA-C LAB - BLOOD ORDERABLES Performing Organization Address City/State/ZIP Code Phon e Number M [facility] [address] [place], [place] [address] [facility] [address] [phone] Blood Morphology Pathologist Review (12/19/2016 3:33 PM CDT) Component Value Ref Test Analysis Performed Pathologis t Range Method Time At Signature Copath Patient Name: CARLEY PHELAN Report MR#: [id number] Specimen #: [id number] Collected: 12/19/2016 Received: 12/22/2016 Reported: 12/22/2016 10:01 [...] 12-22-2016 @ 10:01 AM). CPT Codes: A: 51809-RVPN TESTING LAB LOCATION: [facility] [address] [place], [place] ??[address] COLLECTION SITE: Client: ??[facility] Location: ??[facility] (R) Specimen Anatomical Collection Method [...] 12/19/2016 [facility] pg/mL 10:23 PM CDT [facility] Specimen Anatomical Collection Method Collection Time Receive d Time (Source) Location / / Volume Laterality Blood specimen 12/19/2016 3:33 PM 017 3:34 (specimen) CDT PM CDT Gina Palumbo PA-C LAB - BLOOD ORDERABLES Performing Organization Address City/State/ZIP Code Phon e Number [phone] [place] [address] (ABNORMAL) Vitamin D Deficiency (12/19/2016 3:33 PM CDT) athologist Signature Vitamin D 17 (L) 20 - 75 12/21/2016 [facility] Deficiency ug/L 3:23 PM CDT [facility] [place] Comment: Season, race, dietary intake, and treatm ent affect the concentration of 43-fwhiplw-Cvfzmcl D. Values may decreas e during winter [...] Address City/State/ZIP Code Phon e Number [facility] [address] [place], [place] [phone] [place] [address] (ABNORMAL) Comprehensive metabolic panel (12/19/2016 3:33 PM CDT) [facility] gist Method Time Signature Sodium 140 133 - 144 12/20/2016 [facility] mmol/L 12:54 PM CDT [facility] Potassium 4.2 3.4 - 5.3 12/20/2016 [facility] mmol/L 12:54 PM CDT [facility] Chloride 110 (H) 94 - 109 12/20/2016 [facility] mmol/L 12:54 PM CDT [facility] Carbon Dioxide 21 20 - 32 12/20/2016 [facility] mmol/L 12:54 PM CDT [facility] Anion Gap 9 3 - 14 12/20/2016 [place] mmol/L 12:54 PM CDT [facility] Glucose 85 70 - 99 12/20/2016 [facility] mg/dL 12:54 PM CDT [facility] Urea Nitrogen 9 7 - 30 12/20/2016 [facility] mg/dL 12:54 PM CDT [facility] Creatinine 0.75 0.52 - 12/20/2016 [facility] 1.04 mg/dL 12:54 PM CDT [facility] GFR Estimate >90 >60 12/20/2016 [place] mL/min/1.7 12:54 PM CDT CLINICS m2 [facility] Comment: Non GFR Calc GFR Estimate If >90 >60 mL/min/1.7m2 12/20/2016 12:54 PM [facility] Black T [facility] Comment: GFR Calc Calcium 8.7 8.5 - 10.1 12/20/2016 12:54 PM [facility] mg/dL CDT [facility] Bilirubin Total 0.4 0.2 - 1.3 mg/dL 12/20/2016 12:54 P [facility] Albumin 3.9 3.4 - 5.0 g/dL 12/20/2016 12:54 PM [facility] Protein Total 7.6 6.8 - 8.8 g/dL 12/20/2016 12:54 PM [facility] Alkaline Phosphatase 61 40 - 150 U/L 12/20/2016 1:02 PM [facility] ALT 20 0 - 50 U/L 12/20/2016 12:54 PM [facility] AST 15 0 - 45 U/L 12/20/2016 12:54 PM [facility] Specimen Anatomical Collection Method Collection Time Receive d Time (Source) Location / / Volume Laterality Blood specimen 12/19/2016 3:33 PM 017 3:34 (specimen) CDT PM CDT iGna Palumbo PA-C LAB - BLOOD ORDERABLES Performing Organization Address City/[facility]/ZIP Code Phon e Number [facility] [address] [place] [address] (ABNORMAL) TSH with free T4 reflex (12/19/2016 3:33 PM CDT) P athologist Signature TSH 8.78 (H) 0.40 - 12/20/2016 [facility] 4.00 mU/L 1:02 PM T [facility] Specimen Anatomical Collection Method Collection Time Receive d Time (Source) Location / / Volume Laterality Blood specimen 12/19/2016 3:33 PM 017 3:34 (specimen) CDT PM CDT Gina Palumbo PA-C LAB - BLOOD ORDERABLES Performing Organization Address City/[facility]/ZIP Code Phon e Number [facility] [address] [place], [place] [phone] (ABNORMAL) Iron and iron binding capacity (12/19/2016 3:33 PM CDT) Patholo gist Method Time Signature Iron 10 (L) 35 - 180 12/20/2016 [place] ug/dL 12:54 PM CDT [facility] Iron Binding 528 (H) 240 - 430 12/20/2016 [place] Cap ug/dL 12:54 PM CDT [facility] Iron Saturation 2 (L) 15 - 46 % 12/20/2016 [place] Index 12:54 PM CDT [facility] Specimen Anatomical Collection Method Collection Time Receive d Time (Source) Location / / Volume Laterality Blood specimen 12/19/2016 3:33 PM 017 3:34 (specimen) CDT PM CDT Gina Palumbo PA-C LAB - BLOOD ORDERABLES Performing Organization Address City/[facility]/ZIP Code Phon e Number [facility] [address] [place] [address] [place] [address] (ABNORMAL) Ferritin (12/19/2016 3:33 PM CDT) athologist Signature Ferritin 2 (L) 12 - 150 12/20/2016 [place] [facility] ng/mL 12:55 PM CDT [facility] Specimen Anatomical Collection Method Collection Time Receive d Time (Source) Location / / Volume Laterality Blood specimen 12/19/2016 3:33 PM 017 3:34 (specimen) CDT PM CDT Gina Palumbo PA-C LAB - BLOOD ORDERABLES Performing Organization Address City/[facility]/ZIP Code Phon e Number [facility] [address], [place] [address] (ABNORMAL) CBC with platelets (12/19/2016 3:33 PM [...] - 47.0 % 12/19/2016 3:43 PM CDT [facility] MCV 64 (L) 78 - 100 fl 12/19/2016 3:43 PM CDT [facility] IEW [facility] MCH 18.1 (L) 26.5 - 33.0 pg 12/19/2016 3:43 PM CDT [facility] MCHC 28.2 (L) 31.5 - 36.5 g/dL 12/19/2016 3:43 PM CDT [facility] Comment: Results confirmed by repeat mónica t RDW 17.4 (H) 10.0 - 15.0 % 12/19/2016 3:43 PM [facility] CDT [place] Platelet Count 375 150 - 450 10e9/L 12/19/2016 3:43 PM [facility] CDT [place] Specimen Anatomical Collection Method Collection Time Receive d Time (Source) Location / / Volume Laterality Blood specimen 12/19/2016 3:33 PM 017 3:34 (specimen) CDT PM CDT Gina Palumbo PA-C LAB - BLOOD ORDERABLES Performing Organization Address City/State/ZIP Code Phon e Number [facility] [address] [address] Pap imaged thin layer screen reflex to HPV if ASCUS - recommend age 25 - 29 (12/19/2016 3:05 PM CDT) Component Value Ref Test Analysis Performed At [facility] Range Method Time Signature PAP NIL COPATH Copath Report COPATH Patient Name: CARLEY PHELAN MR#: [id number] Specimen #: [id number] Collected: 12/19/2016 Received: 12/22/2016 Reported: 12/23/2016 13:10 [...] MATEUSZ Rodrigez (ASCP) Processed and screened at [facility] CLINICAL HISTORY: Currently not having periods, Intra-Uterine Device, Papanicolaou Test Limitations: ??Cervical cytology is a scre ening test with limited sensitivity; regular screening is critical for cancer prevention; Pap tests are primarily effective for the diagnosis/prevention of squamous cell carcinoma, not adenoca rcinomas or other cancers. TESTING LAB LOCATION: [address] ??[phone] COLLECTION SITE: Client: ??[facility] Location: [facility] (R) Specimen (Source) Anatomical Collection Method Collection Time Re ceived Time Location / / Volume Laterality Cytologic 12/19/2016 3:05 12/22/2016 material PM CDT 10:43 AM CDT (specimen) Gina Palumbo PA-C LAB - [facility] Performing Organization Address City/State/ZIP Code Phon e [...] documented as of this encounter Care Teams Drop Forger Relationship Specialty Start Date End Date Gina Palumbo, PCP - General Physician Tailings Man 5 09/03/21 DOLOR[place] Gina Palumbo, PCP - Assigned PCP 01/12/15 05/11/18 PAC [facility] [address] [place] [address] Gina Palumbo, Physician Tailings Man 01/31/15 PA-C Gina Palumbo, Assigned PCP 01/12/15 PAC [facility] [address] [place] [address] documented as of this encounter
[2022-01-21 23:24] LABS: Free T4 Free Thyroxine* 0.65 ng/dL (0.70-1.85)
[2022-01-24 00:44] LABS: Rapid Plasma Reagin (RPR) Non Reactive (Non Reactive)
== END 2022-01-21 10:25 | disposition home or self-care (01) ==
LOC: NFLDREF 16:02
PROVIDERS: PCP Internal Medicine; Visit Provider Obstetrics & Gynecology
DX: Z34.93 Encounter for supervision of normal pregnancy, unspecified, third trimester (principal); Z3A.29 29 weeks gestation of pregnancy; E03.9 Hypothyroidism, unspecified
CPT/HCPCS: 84439; 84443; 86592

== ENCOUNTER 2022-02-10 14:50 | Emergency (ER) | payer BC, SELFPAY ==
[2022-02-10 15:59] VITALS: BP 145/73; PULSE 120; RESP 22; TEMP 38.5; O2SAT 92; BMI 38.4
[2022-02-10 16:55] LABS: PCR FLU A POSITIVE PCR FLU A (Negative); PCR FLU B Negative PCR FLU B (Negative); PCR RSV Negative PCR RSV (Negative)
[2022-02-10 17:01] LABS: SARS PCR* Negative SARS-CoV-2 (Negative)
--- NOTE | 2022-02-10 17:35 | ED.NURSE ---
Rechecked from waiting room.
[2022-02-10 17:36] VITALS: BP 135/69; PULSE 117; RESP 18; TEMP 37.4; O2SAT 95
--- NOTE | 2022-02-10 18:27 | ED.GENADULT ---
HPI - General Adult General Chief complaint: Fever Stated complaint: Sore throat, short of breath Time Seen by Provider: 02/10/22 18:20 History of Present Illness HPI narrative: This 36-year-old female is 33 weeks . She comes in reporting upper respiratory symptoms including cough, nasal congestion, fever, and generalized body aches and pains. These symptoms started 2 days ago. She does not report any shortness of breath. Related Data Home Medications Medication Instructions Recorded Confirmed acetaminophen 325 mg tablet 325 mg PO PRN 09/04/21 02/04/22 folic acid 1 mg tablet 1 mg PO QDAY 09/04/21 02/04/22 gabapentin 300 mg capsule 300 mg PO DAILY 09/04/21 02/04/22 mecobalamin (vitamin B12) 1,000 1,000 mcg PO QDAY 09/04/21 02/04/22 mcg chewable tablet (B12 Active) prenat.vits,marci,xmi-oocl-blcmz 1 tab PO QDAY 09/04/21 02/04/22 venlafaxine 150 mg 150 mg PO DAILY 09/04/21 02/04/22 capsule,extended release 24 hr Previous Rx's Medication Instructions Recorded levothyroxine 150 mcg tablet 150 mcg PO QDAY #30 tabs 01/23/22 oseltamivir 75 mg capsule (Tamiflu) 75 mg PO BID 5 days #10 caps 02/10/22 Allergies Allergy/AdvReac Type Severity Reaction Status Date / Time No Known Allergies Allergy Verified 02/04/22 14:47 Review of Systems Status of ROS: Reports: 10 or more systems reviewed and unremarkable except as noted in History and below Narrative: Constitutional: No weight gain or loss. She had a fever previously. Eyes: No discharge. No vision changes. HENT: Nasal congestion, cough. Cardiovascular: No chest pain, no palpitations. Respiratory: No shortness of breath, no wheezes, no cough. Gastrointestinal: No abdominal pain, no vomiting, no diarrhea. Genitourinary: No dysuria, no hematuria. Musculoskeletal: Normal range of motion. Skin: No rashes, no pruritis. Neurological: No dizziness, weakness, sensory change, speech change. Endo/Heme/Allergies: No bruising or bleeding. No polydipsia. Pysch: no suicidality, no anxiety, no insomnia. All other systems reviewed and are negative. [facility] Medical History (Updated 02/10/22 @ 18:30 by Vic Villa MD) Bicornuate uterus History of cholestasis during History of delivery Surgical History (Updated 09/13/21 @ 14:12 by Maryanne Laurent) History of cholecystectomy (2011) History of gastric bypass History of Issac-en-Y gastric bypass (2007) Social History Smoking Status: Never smoker Exam Narrative: Exam Narrative: Constitutional: Well-developed, well-nourished, no acute distress. HEENT: Normocephalic, atraumatic. Neck: Normal range of motion. Nontender. Supple. Heart: Regular. No murmurs. Tachycardia, rate around 115 beats per minute. Intact distal pulses. Lungs: Clear to auscultation. No chest discomfort. No wheezes, rhonchi, or rales. Abdomen: Normal bowel sounds. Nontender. No rebound tenderness. Genitalia: Deferred. Back: No midline tenderness. Normal range of motion. Extremities: Normal range of motion. No injury. Skin: Intact. No rash. Warm. No erythema or pallor. Neurologic: No altered sensation. No weakness. Alert and oriented. Psychiatric: No suicidality. No anxiety or depression. No insomnia. Nursing notes and vitals signs are reviewed. Const: Vital Signs, click to edit/add: Vital Signs - 24 hr 02/10/22 15:59 02/10/22 17:36 Temperature 101.3 F H 99.4 F Pulse Rate [Pulse Oximeter] 120 H 117 H Respiratory Rate 22 18 Blood Pressure [Ri ght Upper Arm] 145/73 H 135/69 Pulse Oximetry 92 95 Oxygen Delivery Me thod Room Air Room Air Course Vital Signs Vital signs: Initial Vital Signs Temperature 101.3 F H 02/10/22 15:59 Temperature Source Temporal Artery Scan 02/10/22 15:59 Pulse Rate 120 H 02/10/22 15:59 Respiratory Rate 22 02/10/22 15:59 Blood Pressure 145/73 H 02/10/22 15:59 Blood Pressure Mean 97 02/10/22 15:59 Pulse Oximetry 92 02/10/22 15:59 Oxygen Delivery Method 02/10/22 15:59 Vital Signs Temperature 101.3 F H 02/10/22 15:59 Pulse Rate 120 H 02/10/22 15:59 Respiratory Rate 22 02/10/22 15:59 Blood Pressure 145/73 H 02/10/22 15:59 Pulse Oximetry 92 02/10/22 15:59 Oxygen Delivery Method 02/10/22 15:59 Temperature 99.4 F 02/10/22 17:36 Pulse Rate 117 H 02/10/22 17:36 Respiratory Rate 18 02/10/22 17:36 Blood Pressure 135/69 02/10/22 17:36 Pulse Oximetry 95 02/10/22 17:36 Oxygen Delivery Method 02/10/22 17:36 Medical Decision Making MDM Narrative Medical decision making narrative: Nasal pharyngeal swab results indicate positive finding for influenza A. This patient is a candidate for Tamiflu so this is prescribed. I advised her to use rett-vqo-joprsld medicines also as needed and directed. Lab Data Labs: Lab Results 02/10/22 Range/Units 15:55 SARS-CoV-2 (PCR) Negative SARS-CoV-2 (Negative) Influenza Type A (PCR) POSITIVE PCR FLU A A (Negative) Influenza Type B (PCR) Negative PCR FLU B (Negative) RSV (PCR) Negative PCR RSV (Negative) Discharge Plan Discharge Clinical Impression: Influenza A Patient Disposition: Home, Self-Care Condition: Unchanged Additional Instructions: Take medication as prescribed. Follow up with MD or return if worsening. Prescriptions: New oseltamivir [Tamiflu] 75 mg capsule 75 mg PO BID 5 Days Qty: 10 0RF No Action gabapentin 300 mg capsule 300 mg PO DAILY venlafaxine 150 mg capsule,extended release 24hr 150 mg PO DAILY B12 Active 1,000 mcg tablet,chewable 1,000 mcg PO QDAY prenat.vits,marci,tjj-tvmv-hgovl Tablet 1 tab PO QDAY acetaminophen 325 mg tablet 325 mg PO PRN Rx Instructions: NO MORE THAN 4000 MG/DAY folic acid 1 mg tablet 1 mg PO QDAY levothyroxine 150 mcg tablet 150 mcg PO QDAY Qty: 30 2RF Follow Up/Referrals: Kristen Smith MD [Primary Care Provider] - Stand Alone Forms: [facility] Info Instructions
--- OUTSIDE RECORDS SUMMARY | 2022-02-10 18:35 | XMS_ITS | Clinical Summary ---
:1985 Author Organization [facility] Address [address] [place] [address] Care Team Providers Name Role Phone Gina Bautista PA-C Unavailable Unavailabl Vidya Romero APRN CNKianna Unavailable [phone] [facility], [facility] Unavailable Marissa Jean MD Unavailable Violette Bolden CN Primary Care Provider Allergies No known active [...] symptoms greater than 10 days fluticasone (FLONASE) [place] 1-2 sprays 1 Bottle 11 02/22/2017 Active 50 MCG/ACT into both nostrils sprayIndications: daily Acute sinusitis with symptoms greater than 10 days vitamin D Take 1 capsule 12 capsule 0 04/14/2017 Act clayton (ERGOCALCIFEROL) (50,000 Units) [place] [address] UNIT mouth once a week capsuleIndications: Lab [...] Name Administration Dates Next Due Influenza Vaccine >6 months (Alfuria,Fluzone) 12/19/2016 Tdap (Adacel,Boostrix) 03/09/2012 Family History Medical History [...] Comments Blood Pressure 108/62 02/22/2017 11:59 AM IMAGING CLERK Pulse 61 02/22/2017 11:59 AM IMAGING CLERK Temperature 36.7 ??C (98.1 ??F) 02/22/2017 11:59 AM IMAGING CLERK Respiratory Rate 15 12/19/2016 2:53 PM CDT Oxygen Saturation 100% 02/22/2017 11:59 AM IMAGING CLERK Inhaled Oxygen Concentration - - Weight 79.3 kg (174 lb 12.8 oz) 01/27/2017 1:05 PM IMAGING CLERK Height 167.6 cm (5' 6) 12/19/2016 2:53 [...] e / Group Dates BC[place] [id number] 2021-Pres [phone] [address] Indemnity [address] [id number] [place] [address] [facility] [id number] 2016-Pres [address] PPO BEHAVIORAL ent [address] [place] [address] ([place]) [place] [address] FlorencioCarley henderson [facility] 1985 [facility] ([place]) [place] [address] Care Teams Senior Applications Architect Relationship Specialty Start Date End Date Violette Bolden CNM PCP - General 09/04/21 [facility] [address] [place] [address] Gina Bautista, Physician Phlebotomy Director 01/31/15 Vidya Pollack APRN CNM Heavy Duty Press Operator 08/21/[address] [place] [id number] [facility] [employer], [facility] 08/21/[address] [address] Marissa Jean MD Hospitalist Endocrinology, 09/04/21 [address] Diabetes, and [address] [place] [address]
--- OUTSIDE RECORDS SUMMARY | 2022-02-10 18:35 | XMS_ITS | Clinical Summary ---
:1985 Author Organization [employer] [place] [address] Care Team Providers Name Role Phone Pcp, [...] = 9 in March; Hgb 10.3 at [facility] before transfer History of delivery 02/02/2018 [...] if not delivered. 7. contractions with mild financial compliance officer al cervical change, admitted to [facility] and received steroids x 2. It's a [...] progesterone during 2016 SAB SPONTANEOUS 2017 SAB 06/23/2018 Term 38w3d F Vag [...] 01/16/2023 01/17/2020, 01/17/2020, 12/19/2016 [facility] Tetanus booster 04/05/2028 04/05/2018, 03/09/2012 HIV for age 15-65 Completed 11/03/2017 Tdap Completed 04/05/2018, 03/09/2012 Results Not on filefrom Last 3 Months Advance Directives Latest Code Status on File Code Status Date Activated Date Inactivated Comments Full Code 05/25/2018 11:18 PM 05/28/2018 2:46 PM Full Code 05/03/2018 7:52 PM 05/04/2018 5:01 PM Full Code 07/04/2013 11:25 AM 07/04/2013 4:53 PM Care Teams Filbert Grower Relationship Specialty Start Date End Date Pcp, No PCP - General 01/15/19 .
--- OUTSIDE RECORDS SUMMARY | 2022-02-10 18:35 | XMS_ITS | Encounter Summary ---
:1985 Author Organization [facility] Address [address] [place] [address] Care Team Providers Name Role Phone Gina Bautista PA-C Unavailable Unavailabl e Vidya Espinal APRN CNKianna Unavailable [phone] [facility], [facility] Unavailable Marissa Jean MD Unavailable Violette Bolden [facility] Primary Care Provider Reason for Visit Reason Onset Date Comments Appointment 09/04/2021 Encounter Details Date Type Department Care Team Description 09/04/2021 Telephone [facility] Natalya Jean, Appointment Jhonatan SALCEDO [address] [facility] [address] [place] [address] [place] [address] [phone] Social History Tobacco Use Types Packs/Day Years Used Date Smoking Tobacco: Never Smokeless Tobacco: Never Alcohol Use Standard Drinks/Week Comments Yes 0 (1 standard drink = 0.6 oz pure alcoho l) Sex Assigned at Date Recorded Not on file documented as of this encounter Miscellaneous Notes Telephone Encounter - Bhavana Biswas - 09/04/2021 12:21 PM CDT [facility] relayed message to pricing manager she will relay this message to the [...] Hypothyroidism and Per referral urgency 3-5 days. [facility] wondering if pt can be seen [...] documented as of this encounter Care Teams Magnetic Observer Relationship Specialty Start Date End Date Violette Bolden CNM PCP - General 09/04/21 [facility] [address] [place] [address] Gina Bautista, Physician Senior Software Manager 01/31/15 Vidya Pollack APRN CNM Multiple Drill Operator 08/21/21 [facility] [address] [facility] [address] [place] [address] [facility], [facility] 08/21/[address] [address] Marissa Jean MD Hospitalist Endocrinology, 09/04/21 [address] [place] Diabetes, and [address] [place] [address] documented as of this encounter
--- OUTSIDE RECORDS SUMMARY | 2022-02-10 18:35 | XMS_ITS | Encounter Summary ---
:1985 Author Organization [facility] Address [address] [place] [address]. [place] [address] Care Team Providers Name Role Phone Gina Bautista PA-C Primary Care Provider Unavaila ble Gina Bautista PA-C Unavailable Unavailabl Vidya Romero APRN, CNM Unavailable [phone], [facility] Unavailable Encounter Details Date Type Department Care Team Description 2021 Medical Correspondence [facility] Scan, ENDOCRINOLOGY Health Info Mgmt Non-Provider REFERRAL [address] [address] Social History Tobacco Use Types [...] documented as of this encounter Care Teams Labor Economist Relationship Specialty Start Date End Date Gina Bautista, EVA - General Physician Associate Juvenile Court Judge 5 09/03/21 Gina Key, Physician Associate Juvenile Court Judge 01/31/15 Vidya Pollack APRN CNM Bobbin Dumper 08/21/[address] [place] [address] [facility], [facility] 08/21/[address] [address] documented as of this encounter
--- OUTSIDE RECORDS SUMMARY | 2022-02-10 18:36 | XMS_ITS | Encounter Summary ---
:1985 Author Organization [facility] Address [address] [place] [address]. [place] [address] Care Team Providers Name Role Phone Gina Bautista PA-C Primary Care Provider Gina Kee PA-C Unavailable Unavailabl Gina Marrero PA-C Unavailable UnavailGina Hanna PA-C Unavailable Unavailabl e Encounter Details Date Type Department Care Team Description 04/24/2017 Office Visit [facility] Lisa Lopez LP Anxiety (Primary Dx) Services [address] [phone] Social History Tobacco Use Types Packs/Day [...] Tasks / Other) Use TIP skills Lisa Lopze LP Treatment Plan Client's Name: Carley Hernandez [...] plan. Lisa Lopez LP February 19, 2017 U RN documented in this encounter Plan of Treatment Not on filedocumented as of this encounter Visit Diagnoses Diagnosis Anxiety - Primary Anxiety state, unspecified documented in this encounter Additional Health Concerns Assessment Noted Time PHQ-9 Depression Total Score: 10 04/25/2017 8:01 AM CS T documented as of this encounter Care Teams Sewing Machine Attachment Tester Relationship Specialty Start Date End Date Gina Bautista, PCP - General Physician Roller Helper 5 09/03/21 Gina Key, PCP - Assigned PCP 01/12/15 05/11/18 [facility] NO INFO AVAILABLE 01/23/2022 Gina Bautista, Physician Roller Helper 01/31/15 Gina Key, Assigned PCP 01/12/15 PAJudi NO INFO AVAILABLE 01/23/2022 documented as of this encounter
--- OUTSIDE RECORDS SUMMARY | 2022-02-10 18:36 | XMS_ITS | Encounter Summary ---
:1985 Author Organization [facility] Address [address] [place] [address] Care Team Providers Name Role Phone Gina Bautista PA-C Primary Care Provider Gina Kee PA-C Unavailable UnavailGina Hanna PA-C Unavailable UnavailGina Hanna PA-C Unavailable Unavailabl e Encounter Details Date Type Department Care Team Description 04/27/2015 Telephone [facility] Lyle Bautista [place] PA-C [address] NO INFO AVAILABLE [place] [phone] 01/23/2022 Social History Tobacco Use Types Packs/Day Years Used Date Smoking Tobacco: Never Smokeless Tobacco: Never Alcohol Use Standard Drinks/Week Comments Yes 0 (1 standard drink = 0.6 oz pure alcoho l) Sex Assigned at Date Recorded Not on file documented as of this encounter Miscellaneous Notes Telephone Encounter - Gina Bautista PA-C - 04/27/2015 8:25 AM WORKERS COMPENSATION MANAGER Spoke with patient regarding labs. Will restart Synthroid 75mcg daily, recheck in 6-8 weeks Discussed low hemoglobin, will have her get labs today and then start iron replacement BID, recheck in 6-8 weeks as well. Discussed remained of labs. Gina Bautista PA-C ERS COMPENSATION MANAGER Telephone Encounter - Monica Tony CMA - 04/27/2015 8:20 AM CST Per patient, placed letter at front office representative for patient fern picker Marianne Chavo CAMPOS (AAND) 04/27/2015 8:21 AM ERS COMPENSATION MANAGER Telephone Encounter - Gina Bautista PA-C - 04/27/2015 8:13 AM WORKERS COMPENSATION MANAGER Left Vm for patient, would like to discuss labs results. Gina Bautista PA-C ERS COMPENSATION MANAGER documented in this encounter Plan of Treatment Not on filedocumented as of this encounter Visit Diagnoses Not on filedocumented in this encounter Additional Health Concerns Assessment Noted Time PHQ-9 Depression Total Score: 16 04/26/2015 8:54 AM CS T documented as of this encounter Care Teams Hard Tile Setter Relationship Specialty Start Date End Date Gina Bautista PCP - General Physician Supply Planner 5 09/03/21 Gina Key PCP - Assigned PCP 01/12/15 05/11/18 [facility] NO INFO AVAILABLE 01/23/2022 Gina Bautista Physician Supply Planner 01/31/15 Gina Key, Assigned PCP 01/12/15 [facility] NO INFO AVAILABLE 01/23/2022 documented as of this encounter
--- OUTSIDE RECORDS SUMMARY | 2022-02-10 18:36 | XMS_ITS | Encounter Summary ---
:1985 Author Organization [facility] Address [address] [place] [address] Care Team Providers Name Role Phone Gina Bautista PA-C Primary Care Provider Jaynaa ble Gina Bautista PA-C Unavailable Unavailabl e Gina Bautista PA-C Unavailable Unavailabl e Gina Bautista PA-C Unavailable Unavailabl e Reason for Visit Reason Comments Medication Refill Encounter Details Date Type Department Care Team Description 03/22/2017 Refill [facility] Lyle Bautista Medication Refill Jigna Vance PA-C [address] NO INFO AVAILABLE [place] [phone] 01/23/2022 Social History Tobacco Use Types Packs/Day Years Used Date Smoking Tobacco: Never Smokeless Tobacco: Never Alcohol Use Standard Drinks/Week Comments Yes 0 (1 standard drink = 0.6 oz pure alcoho l) Sex Assigned at Date Recorded Not on file documented as of this encounter Miscellaneous Notes Telephone Encounter - Violette Archer - 04/06/2017 3:23 PM CST Appointment scheduled THCARE ANALYST Telephone Encounter - Panchito Gandhi - 04/03/2017 10:43 AM CST 2nd attempt, LM to call back. Needs non-fasting lab only apt. Panchito Gandhi CMA (AAMA) THCARE ANALYST Telephone Encounter - Donya Damon - 03/26/2017 11:50 AM CST 1st attempt LVM to call back to make an appt THCARE ANALYST Telephone Encounter - Yvette Negrete RN - 03/25/2017 12:18 PM HEALTHCARE ANALYST Medication is being filled for 1 time refill only due to: Patient needs labs recheck on Vitamin D level. Call to schedule lab only appointment, future order previously placed. Kim Negrete RN THCARE ANALYST Telephone Encounter - Kaye Gr - 03/23/2017 9:36 AM CST vitamin D (ERGOCALCIFEROL) [address] UNIT capsule Last Written Prescription Date: 12/22/2016 Last Fill Quantity: 12, # refills: 0 Last Office Visit: 02/22/2017 Future Office visit: Next 5 appointments (look out 90 days) Apr 24, 2017 2:00 PM HEALTHCARE ANALYST Return Visit with Lisa Lopez LP [facility] [address] [facility] [address] May 08, 2017 2:00 PM HEALTHCARE ANALYST Return Visit with Lisa Lopez LP [facility]) [address] [facility] [address] May 22, 2017 2:00 PM CDT Return Visit with Lisa Lopez [facility] ([facility]) [address] [place] [phone] Routing refill request to provider for review/approval because: Drug not on the [facility], [facility] or [facility] refill protocol or controlled substance THCARE ANALYST documented in this encounter Plan of Treatment Not on filedocumented as of this encounter Visit Diagnoses Diagnosis Vitamin D deficiency Unspecified vitamin D deficiency documented in this encounter Additional Health Concerns Assessment Noted Time PHQ-9 Depression Total Score: 9 02/19/2017 2:07 PM HEALTHCARE ANALYST documented as of this encounter Care Teams Saturator Operator Relationship Specialty Start Date End Date Gina Bautista, PCP - General Physician Security Guard Dispatcher 5 09/03/21 PA-C Gina Bautista, PCP - Assigned PCP 01/12/15 05/11/18 PA-C NO INFO AVAILABLE 01/23/2022 Gina Bautista, Physician Security Guard Dispatcher 01/31/15 PALiuC Gina Bautista, Assigned PCP 01/12/15 PA-C NO INFO AVAILABLE 01/23/2022 documented as of this encounter
--- OUTSIDE RECORDS SUMMARY | 2022-02-10 18:36 | XMS_ITS | Encounter Summary ---
:1985 Author Organization [place] Address [address] [place] [address] Care Team Providers Name Role Phone Gina Bautista PA-C Primary Care Provider UnavailGina Joyner PA-C Unavailable UnavailGina Hanna PA-C Unavailable UnavailGina Hanna PA-C Unavailable Unavailabl e Encounter Details Date Type Department Care Team Description 04/26/[address] [facility] Enc ounter for routine adult physical exam with abnormal findings; [facility] Overweight; [address] Hypothyroidism due to acquir ed atrophy of thyroid [place] [phone] Social History Tobacco Use Types [...] Encounter for Resu lts for this REFLEX PATIENT CASE MANAGER routine adult procedure are in physical exam with the resul ts abnormal finding s section. Hypothyroidism due to acquired atrophy of thyroid T4 FREE Routine 04/26/2015 8:26 AM Encounter for Results for this PATIENT CASE MANAGER routine adult procedure are in physical exam with the resul ts abnormal findings section. LIPID REFLEX TO DIRECT Routine 04/26/2015 8:26 AM Encounter fo r Results for this LDL PANEL PATIENT CASE MANAGER routine adult procedure are in physical exam with the resul ts abnormal findings section. COMPREHENSIVE Routine 04/26/2015 8:26 AM Encounter for Results for this METABOLIC PANEL PATIENT CASE MANAGER routine adult procedure a re in physical exam with the resul ts abnormal finding s section. Overweight CBC WITH PLATELETS Routine 04/26/2015 8:26 AM Encounter for Re sults for this PATIENT CASE MANAGER routine adult procedure are in physical exam with the resul ts abnormal findings section. documented in this encounter Results T4 free (04/26/2015 8:26 AM PATIENT CASE MANAGER) athologist Signature T4 Free 0.98 0.76 - 1.46 [facility] ng/dL [facility] Specimen Anatomical Collection Method Collection Time Receive d Time (Source) Location / / Volume Laterality 04/26/2015 8:26 AM 6 8:27 PATIENT CASE MANAGER AM PATIENT CASE MANAGER Gina Bautista PA-C LAB - BLOOD ORDERABLES Performing Organization Address City/State/ZIP Code Phon e Number [facility] [address] [place] [address] (ABNORMAL) CBC with platelets (04/26/2015 8:26 AM PATIENT CASE MANAGER) athologist Signature WBC 4.7 4.0 - 11.0 [place] 10e9/L [facility] RBC Count 4.41 3.8 - 5.2 [place] 10e12/L [facility] Hemoglobin 8.4 (L) 11.7 - 15.7 [place] g/dL [facility] [place] Comment: Results confirmed by repeat mónica t Hematocrit 29.1 (L) 35.0 - 47.0 % [facility] [place] MCV 66 (L) 78 - [address] [facility] [place] MCH 19.0 (L) 26.5 - 33.0 pg [facility] [place] MCHC 28.9 (L) 31.5 - 36.5 g/dL [place] [facility] [place] Comment: Results confirmed by repeat mónica t RDW 16.7 (H) 10.0 - 15.0 % [facility] [place] Platelet Count 321 150 - 450 10e9/L [facility] [place] Specimen Anatomical Collection Method Collection Time Receive d Time (Source) Location / / Volume Laterality Blood specimen 04/26/2015 8:26 AM 02/18/2 016 8:27 (specimen) PATIENT CASE MANAGER AM PATIENT CASE MANAGER Gina Bautista PA-C LAB - BLOOD ORDERABLES Performing Organization Address City/[facility]/ZIP Code Phon e Number [facility] [address] [address] LIPID REFLEX TO DIRECT LDL PANEL (04/26/2015 8:26 AM PATIENT CASE MANAGER) P athologist Signature Cholesterol 109 <200 mg/dL [facility] Triglycerides 70 <150 mg/dL [facility] S [facility] Comment: Fasting specimen HDL Cholesterol 54 >49 mg/dL [place] [facility] LDL Cholesterol Calculated 41 <100 mg/dL [facility] Comment: Desirable: <100 mg/dl Non HDL Cholesterol 55 <130 mg/dL [facility] Specimen Anatomical Collection Method Collection Time Receive d Time (Source) Location / / Volume Laterality Blood specimen 04/26/2015 8:26 AM 016 8:27 (specimen) PATIENT CASE MANAGER AM PATIENT CASE MANAGER Gina RAMIREZ-C LAB - BLOOD ORDERABLES Performing Organization Address City/[facility]/ZIP Code Phon e Number [facility] [address] [place] [address] (ABNORMAL) TSH with free T4 reflex (04/26/2015 8:26 AM PATIENT CASE MANAGER) athologist Signature TSH 7.92 (H) 0.40 - [facility] 4.00 mU/L [facility] Specimen Anatomical Collection Method Collection Time Receive d Time (Source) Location / / Volume Laterality Blood specimen 04/26/2015 8:26 AM 016 8:27 (specimen) PATIENT CASE MANAGER AM PATIENT CASE MANAGER Gina Pinky RAMIREZ-C LAB - BLOOD ORDERABLES Performing Organization Address City/[facility]/ZIP Code Phon e Number [facility] [address] [place] [address] (ABNORMAL) Comprehensive metabolic panel (04/26/2015 8:26 AM PATIENT CASE MANAGER) [facility] gist Method Time Signature Sodium 140 133 - 144 [place] mmol/L [facility] Potassium 4.1 3.4 - 5.3 [place] mmol/L [facility] Chloride 109 94 - 109 [place] mmol/L [facility] Carbon Dioxide 23 20 - 32 [place] mmol/L [facility] Anion Gap 8 3 - 14 [place] mmol/L [facility] Glucose 87 70 - 99 [place] mg/dL [facility] Urea Nitrogen 10 7 - 30 [place] mg/dL [facility] Creatinine 0.74 0.52 - [place] 1.04 CLINICS mg/dL [facility] GFR Estimate >90 >60 [place] Non GFR Calc mL/min/1. CLINICS 7m2 [facility] GFR Estimate If >90 >60 [place] Black GFR Calc mL/min/1. CLIN ICS 7m2 [facility] Calcium 8.3 (L) 8.5 - [place] 10.1 [facility] mg/dL [facility] Bilirubin Total 0.5 0.2 - 1.3 [place] mg/dL [facility] Albumin 3.8 3.4 - 5.0 [place] g/dL [facility] Protein Total 7.4 6.8 - 8.8 [place] g/dL [facility] Alkaline 71 40 - 150 [place] Phosphatase U/L [facility] ALT 19 0 - 50 [place] U/L [facility] AST 14 0 - 45 [place] U/L [facility] Specimen Anatomical Collection Method Collection Time Receive d Time (Source) Location / / Volume Laterality Blood specimen 04/26/2015 8:26 AM 016 8:27 (specimen) PATIENT CASE MANAGER AM PATIENT CASE MANAGER Gina aButista PA-C LAB - BLOOD ORDERABLES Performing Organization Address City/State/ZIP Code Phon e Number [facility] [address] [place] [address] documented in this encounter Visit Diagnoses Diagnosis Encounter for routine adult physical exa m with abnormal findings Overweight 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 documented in this encounter Additional Health Concerns Assessment Noted Time PHQ-9 Depression Total Score: 16 04/26/2015 8:54 AM CS T documented as of this encounter Care Teams Care Taker Relationship Specialty Start Date End Date Gina Bautista PCP - General Physician Media Senior Recruiter 5 09/03/21 Gina Key, PCP - Assigned PCP 01/12/15 05/11/18 [place] NO INFO AVAILABLE 01/23/2022 Gina Bautista, Physician Media Senior Recruiter 01/31/15 Gina Key, Assigned PCP 01/12/15 [place] NO INFO AVAILABLE 01/23/2022 documented as of this encounter
--- OUTSIDE RECORDS SUMMARY | 2022-02-10 18:36 | XMS_ITS | Encounter Summary ---
:1985 Author Organization [place] Address [address] [place] [address] Care Team Providers Name Role Phone Gina Bautista PA-C Primary Care Provider Oscar ble Gina Bautista PA-C Unavailable Unavailabl e Michele, Gina Vance PA-C Unavailable Unavailabl e Gina Bautista PA-C Unavailable Unavailabl e Reason for Visit Reason Onset Date Comments Outreach 05/27/2017 Encounter Details Date Type Department Care Team Description 05/27/2017 Telephone [facility] Lyle Bautista, Outreach Jigna BERNAL [address] NO INFO AVAILABLE [place] [phone] 01/23/2022 Social History Tobacco Use Types Packs/Day [...] Panchito Gandhi sent at 04/15/2017 4:53 PM [facility] ----- Call pt to schedule lab only in next 2 weeks. Labs pended. Panchito Gandhi CMA (AAMA) documented in this encounter Plan of Treatment Not on filedocumented as of this encounter Visit Diagnoses Not on filedocumented in this encounter Additional Health Concerns Assessment Noted Time PHQ-9 Depression Total Score: 10 05/09/2017 8:01 AM CS T documented as of this encounter Care Teams Infection Prevention Specialist Relationship Specialty Start Date End Date Gina Bautista PCP - General Physician Machine Shop Specialist 5 09/03/21 Gina Key, PCP - Assigned PCP 01/12/15 05/11/18 [place] NO INFO AVAILABLE 01/23/2022 Gina Bautista Physician Machine Shop Specialist 01/31/15 Gina Key, Assigned PCP 01/12/15 [place] NO INFO AVAILABLE 01/23/2022 documented as of this encounter
--- OUTSIDE RECORDS SUMMARY | 2022-02-10 18:36 | XMS_ITS | Encounter Summary ---
:1985 Author Organization [facility] Address [address] [place] [address] Care Team Providers Name Role Phone Gina Bautista PA-C Primary Care Provider Gina Kee PA-C Unavailable Unavailabl e Gina Bautista PA-C Unavailable Unavailabl Gina Marrero PA-C Unavailable Unavailabl e Reason for Visit Reason Comments Sinus Problem Encounter Details Date Type Department Care Team Description 07/27/2015 Office Visit [facility] Gina Bautista Acute recurrent Clinic Jigna Vance PA-C maxillary sinusitis [address] NO INFO (Primary Dx) [place] AVAILABLE [phone] 01/23/2022 Social History Tobacco Use Types Packs/Day [...] She has been treated twice by in [place] with Amoxicillin without relief No fever, very [...] fluids andOTCs- recommend Sudafed. Also sent in Tessal Gary for cough. F/U if symptoms worsen or [...] the plan of care. Gina Bautista PA-C [facility] documented in this encounter Nursing Notes [...] phone number for results from this visit [phone] OK to leave message Marianne Tony CMA [...] documented as of this encounter Care Teams Herbologist Relationship Specialty Start Date End Date Gina Bautista PCP - General Physician Rn Angiography 5 09/03/21 Gina Key, PCP - Assigned PCP 01/12/15 05/11/18 [place] NO INFO AVAILABLE 01/23/2022 Gina Bautista, Physician Rn Angiography 01/31/15 Gina Key, Assigned PCP 01/12/15 [place] NO INFO AVAILABLE 01/23/2022 documented as of this encounter
--- OUTSIDE RECORDS SUMMARY | 2022-02-10 18:36 | XMS_ITS | Encounter Summary ---
:1985 Author Organization [place] Address [address] [place] [address] Care Team Providers Name Role Phone Gina Bautista PA-C Primary Care Provider Unavaila ble Gina Bautista PA-C Unavailable Unavailabl e Gina Bautista PA-C Unavailable Unavailabl e Gina Bautista PA-C Unavailable Unavailabl e Reason for Referral - Closed Specialty Diagnoses / Procedures Referred By Contact Refer red To Contact Diagnoses S/P gastric bypass Gina Bautista, Procedures VITAMIN B12 INJ /1000MCG [place] NO INFO AVAILABLE 01/23/2022 Referral ID Status Reason Start Date Expiration Date Visits Requ ested Visits Authorized [id number] Closed 12/29/2016 12/29/2017 1 1 Reason for Visit Reason Comments Imm/Inj starting B 12 injections Encounter Details Date Type Department Care Team Description 12/29/2016 Allied Health/Nurse [facility] Imm /Inj (starting B 12 Visit Clinic [place] injections ) [id number] [place] [id number] Social History Tobacco Use Types Packs/Day Years [...] documented as of this encounter Care Teams Bolt Loader Relationship Specialty Start Date End Date Gina Bautista PCP - General Physician Sap Security Consultant 5 09/03/21 Gina Key, PCP - Assigned PCP 01/12/15 05/11/18 [place] NO INFO AVAILABLE 01/23/2022 Gina Bautista Physician Sap Security Consultant 01/31/15 Gina Key, Assigned PCP 01/12/15 PAJud[place] NO INFO AVAILABLE 01/23/2022 documented as of this encounter
--- OUTSIDE RECORDS SUMMARY | 2022-02-10 18:36 | XMS_ITS | Encounter Summary ---
:1985 Author Organization [place] Address [address] [place] [address] Care Team Providers Name Role Phone Gina Palumbo PA-C Primary Care Provider Gina Kee PA-C Unavailable Unavailabl e Gina Palumbo PA-C Unavailable Unavailabl Gina Marrero PA-C Unavailable Unavailabl e Reason for Visit Reason Comments Physical Annual Physical with PAP Encounter Details Date Type Department Care Team Description 04/25/2015 Office Visit [facility] Gina Palumbo for routine adult physical exam with abnormal findings (Primary Dx); Clinic Jigna Vance PA-C Overweight; [id number] NO INFO Hypothyroidis m due to acquired atrophy of thyroid; AVENUE [facility] Adjustment disorder with dep ressed mood; [place] 01/23/2022 Iron deficien cy anemia, unspecified iron deficiency [id number] Social History [...] Comments Blood Pressure 126/62 04/25/2015 1:02 PM FLIGHT LINE MECHANIC Pulse 80 04/25/2015 1:02 PM FLIGHT LINE MECHANIC Temperature 36.6 ??C (97.9 ??F) 04/25/2015 1:02 PM FLIGHT LINE MECHANIC Respiratory Rate 16 04/25/2015 1:02 PM FLIGHT LINE MECHANIC Oxygen Saturation 100% 04/25/2015 1:02 PM FLIGHT LINE MECHANIC Inhaled Oxygen Concentration - - Weight 82.1 kg (181 lb) 04/25/2015 1:02 PM FLIGHT LINE MECHANIC Height 167 cm (5' 5.75) 04/25/2015 1:02 PM FLIGHT LINE MECHANIC Body Mass Index 29.44 04/25/2015 1:02 PM FLIGHT LINE MECHANIC documented in this encounter Patient Instructions Patient [...] months for an exam and cleaning. ?? HT LINE MECHANIC documented in this encounter Progress Notes Gina [...] Maxwell and colleagues,with an educational kenia from [employer].) 04/25/2015 01/31/2015 Q1: Little interest or pleasure [...] LDL, TRIG, CHOLHDLRATIO, NHDL in the last 98637 hours. Reviewed orders with patient. Reviewed health maintenance and updated orders accordingly - Yes Mammo Decision Support: Mammogram not appropriate for this patient based on age. Last Mammo:No results found. History of abnormal Pap smear: NO - age 21-29 PAP every 3 years recommended All Histories reviewed and updated in [facility]. ROS: CONSTITUTIONAL:NEGATIVE for fever, chills, + [...] Preventive Guidelines Dietary Guidelines for Americans, 2010 USDA's MyPlate Gina Palumbo PA-C [facility] HT LINE MECHANIC documented in this encounter Nursing Notes Monica [...] phone number for results from this visit [phone] OK to leave message Marianne Chavo CAMPOS (AAMA) 04/25/2015 1:03 PM HT LINE MECHANIC documented in this encounter Miscellaneous Notes Addendum Note - Gina Palumbo PA-C - 04/27/2015 8:25 AM FLIGHT LINE MECHANIC Addended by: GINA PALUMBO on: 04/27/2015 08:25 AM Modules accepted: Orders HT LINE MECHANIC documented in this encounter Plan of Treatment Not on filedocumented as of this encounter Procedures Procedure Name Priority Date/Time Associated Comments Diagnosis UA MACROSCOPIC WITH Routine 04/25/2015 12:44 Encounter for Res ults for this REFLEX TO MICROSCOPIC PM FLIGHT LINE MECHANIC routine adult proce dure are in AND CULTURE physical exam with the resul ts abnormal findings section. documented in this encounter Results (ABNORMAL) Iron and iron binding capacity (04/27/2015 11:50 AM FLIGHT LINE MECHANIC) [facility] Time Signature Iron 13 (L) 35 - 180 [place] ug/dL [facility] Iron Binding 619 (H) 240 - 430 [place] Cap ug/dL [facility] Iron Saturation 2 (L) 15 - 46 % [place] Index CLINICS [facility] Specimen Anatomical Collection Method Collection Time Receive d Time (Source) Location / / Volume Laterality Blood specimen 04/27/2015 11:50 6 (specimen) AM FLIGHT LINE MECHANIC 11:51 AM FLIGHT LINE MECHANIC Gina Palumbo PA-C LAB - BLOOD ORDERABLES Performing Organization Address City/[facility]/ZIP Code Phon e Number [facility] [address] [place] [address] (ABNORMAL) Ferritin (04/27/2015 11:50 AM FLIGHT LINE MECHANIC) P athologist Signature Ferritin 2 (L) 12 - 150 [facility] ng/mL [facility] Specimen Anatomical Collection Method Collection Time Receive d Time (Source) Location / / Volume Laterality Blood specimen 04/27/2015 11:50 6 (specimen) AM FLIGHT LINE MECHANIC 11:51 AM FLIGHT LINE MECHANIC Gina Palumbo PA-C LAB - BLOOD ORDERABLES Performing Organization Address City/[facility]/ZIP Code Phon e Number [facility] [address] [place] [address] (ABNORMAL) TSH with free T4 reflex (04/26/2015 8:26 AM FLIGHT LINE MECHANIC) P athologist Signature TSH 7.92 (H) 0.40 - [place] [facility] 4.00 mU/L [facility] Specimen Anatomical Collection Method Collection Time Receive d Time (Source) Location / / Volume Laterality Blood specimen 04/26/2015 8:26 AM 016 8:27 (specimen) FLIGHT LINE MECHANIC AM FLIGHT LINE MECHANIC Gina Palumbo PA-C LAB - BLOOD ORDERABLES Performing Organization Address City/[facility]/ZIP Code Phon e Number [facility] [address], [place] [address] (ABNORMAL) Comprehensive metabolic panel (04/26/2015 8:26 AM FLIGHT LINE MECHANIC) [facility] gist Method Time Signature Sodium 140 133 - 144 [place] mmol/L [facility] Potassium 4.1 3.4 - 5.3 [place] mmol/L [facility] Chloride 109 94 - 109 [place] mmol/L [facility] Carbon Dioxide 23 20 - 32 [place] mmol/L [facility] Anion Gap 8 3 - 14 [place] mmol/L [facility] Glucose 87 70 - 99 [place] mg/dL [facility] Urea Nitrogen 10 7 - 30 [place] mg/dL [facility] Creatinine 0.74 0.52 - [place] 1.04 [facility] mg/dL [facility] GFR Estimate >90 >60 [place] Non GFR Calc mL/min/1. CLINICS 7m2 [facility] GFR Estimate If >90 >60 [place] Black GFR Calc mL/min/1. CLIN ICS 7m2 [facility] Calcium 8.3 (L) 8.5 - [place] 10.1 [facility] mg/dL [facility] Bilirubin Total 0.5 0.2 - 1.3 [place] mg/dL [facility] Albumin 3.8 3.4 - 5.0 [place] g/dL [facility] Protein Total 7.4 6.8 - 8.8 [place] g/dL [facility] Alkaline 71 40 - 150 [place] Phosphatase U/L [facility] ALT 19 0 - 50 [place] U/L [facility] AST 14 0 - 45 [place] U/L [facility] Specimen Anatomical Collection Method Collection Time Receive d Time (Source) Location / / Volume Laterality Blood specimen 04/26/2015 8:26 AM 016 8:27 (specimen) FLIGHT LINE MECHANIC AM FLIGHT LINE MECHANIC Gina Palumbo PA-C LAB - BLOOD ORDERABLES Performing Organization Address City/State/ZIP Code Phon e Number [facility] [address] [place] [address] (ABNORMAL) CBC with platelets (04/26/2015 8:26 AM FLIGHT LINE MECHANIC) athologist Signature WBC 4.7 4.0 - 11.0 [place] 10e9/L [facility] [place] RBC Count 4.41 3.8 - 5.2 [place] 10e12/L [facility] Hemoglobin 8.4 (L) 11.7 - 15.7 [place] g/dL [facility] [place] Comment: Results confirmed by repeat mónica t Hematocrit 29.1 (L) 35.0 - 47.0 % [facility] [place] MCV 66 (L) 78 - 100 fl [facility] [place] MCH 19.0 (L) 26.5 - 33.[address] [facility] [place] MCHC 28.9 (L) 31.5 - 36.5 g/dL [place] [facility] [place] Comment: Results confirmed by repeat mónica t RDW 16.7 (H) 10.0 - 15.0 % [facility] Platelet Count 321 150 - 450 10e9/L [facility] Specimen Anatomical Collection Method Collection Time Receive d Time (Source) Location / / Volume Laterality Blood specimen 04/26/2015 8:26 AM 016 8:27 (specimen) FLIGHT LINE MECHANIC AM FLIGHT LINE MECHANIC Gina Palumbo PA-C LAB - BLOOD ORDERABLES Performing Organization Address City/State/ZIP Code Phon e Number [facility] [address] [address] LIPID REFLEX TO DIRECT LDL PANEL (04/26/2015 8:26 AM FLIGHT LINE MECHANIC) P athologist Signature Cholesterol 109 <200 mg/dL [facility] Triglycerides 70 <150 mg/dL [facility] Comment: Fasting specimen HDL Cholesterol 54 >49 mg/dL [place] [facility] CS [facility] LDL Cholesterol Calculated 41 <100 mg/dL [facility] Comment: Desirable: <100 mg/dl Non HDL Cholesterol 55 <130 mg/dL [facility] Specimen Anatomical Collection Method Collection Time Receive d Time (Source) Location / / Volume Laterality Blood specimen 04/26/2015 8:26 AM 016 8:27 (specimen) FLIGHT LINE MECHANIC AM FLIGHT LINE MECHANIC Gina Palumbo PA-C LAB - BLOOD ORDERABLES Performing Organization Address City/[facility]/ZIP Code Phon e Number [facility] [address] [place] [address] UA reflex to Microscopic and Culture (04/25/2015 12:44 PM FLIGHT LINE MECHANIC) [facility] gist Method Time Signature Color Urine Yellow [place] [facility] [place] Appearance Urine Clear [facility] [place] Glucose Urine Negative NEG mg/dL [place] [facility] [place] Bilirubin Urine Negative NEG [place] [facility] [place] Ketones Urine Negative NEG mg/dL [facility] [place] Specific [place] 1.025 1.003 - [place] Urine 1.035 [facility] [place] Blood Urine Negative NEG [facility] [place] pH Urine 5.5 5.0 - 7.0 [place] pH [facility] [place] Protein Albumin Negative NEG mg/dL [place] Urine [facility] [place] Urobilinogen 0.2 0.2 - 1.0 [place] Urine EU/dL [facility] [place] Nitrite Urine Negative NEG [facility] [place] Leukocyte Negative NEG [place] Esterase Urine [facility] [place] Source Midstream [place] Urine [facility] [place] Specimen Anatomical Collection Method Collection Time Receive d Time (Source) Location / / Volume Laterality Urine specimen 04/25/2015 12:44 6 (specimen) PM FLIGHT LINE MECHANIC 12:45 PM FLIGHT LINE MECHANIC Gina Palumbo PA-C LAB - URINE ORDERABLES Performing Organization Address City/State/ZIP Code Phon e Number [facility] [address] [place], [place] [address] documented in this encounter [...] documented as of this encounter Care Teams Health Sciences Manager Relationship Specialty Start Date End Date Gina Palumbo PCP - General Physician Gas And Oil Servicer 5 09/03/21 Gina Key PCP - Assigned PCP 01/12/15 05/11/18 [place] NO INFO AVAILABLE 01/23/2022 Gina Palumbo, Physician Gas And Oil Servicer 01/31/15 Gina Key, Assigned PCP 01/12/15 [place] NO INFO AVAILABLE 01/23/2022 documented as of this encounter
--- OUTSIDE RECORDS SUMMARY | 2022-02-10 18:36 | XMS_ITS | Encounter Summary ---
:1985 Author Organization [facility] Address [address] [place] [address]. [place] [address] Care Team Providers Name Role Phone Gina Bautista PA-C Primary Care Provider Gina Kee PA-C Unavailable Unavailabl e Gina Bautista PA-C Unavailable Unavailabl Gina Marrero PA-C Unavailable Unavailabl e Reason for Visit Mental Health Outpatient (Routine) - Closed Specialty Diagnoses / Procedures Referred By Contact Refer red To Contact Gina Bautista [facility] NO INFO AVAILABLE [address] [place] [address] 01/23/2022 [place] [address] Phone: Fax: Referral ID Status Reason Start Date Expiration Date Visits Requ ested Visits Authorized [facility] Closed 01/14/2017 01/14/2018 1 52 Encounter Details Date Type Department Care Team Description 02/06/2017 Office Visit [facility] Lisa Lopez LP Anxiety (Primary Dx) Services [id number] [place] [address] [id number] [phone] Social History Tobacco Use Types Packs/Day Years Used Date Smoking Tobacco: Never Smokeless Tobacco: Never Alcohol Use Standard Drinks/Week Comments Yes 0 (1 standard drink = 0.6 oz pure alcoho l) Sex Assigned at Date Recorded Not on file documented as of this encounter Progress Notes JohnLisa, LP - 02/06/2017 2:23 PM CST Images from the original note were not included. Adult Intake Structured Interview Standard Diagnostic Assessment CLIENT'S NAME: Carley Hernandez : 1985 ACCT. NUMBER: [id number] DATE OF SERVICE: 02/06/17 Identifying Information: Client is a 31 year old, , female. Client was referred for counseling by self. 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 Client attended the session alone. Client's [...] History: Client reported she grew up in [place], [place]. They were the second born of [...] concentration. There are no ethnic, cultural or synagogue factors that may be relevant for therapy. Client identified her preferred language to be Albanian. Client reported she does not need the assistance of an bar gauger and lubricator tender or other support involved in therapy. Modifications [...] an exam with PCP. The clienthas a [facility] Primary Care Provider, who is named Gina [...] muscle every30 days ??? vitamin D (ERGOCALCIFEROL) 47039 UNIT capsule Take 1 capsule (50,000 Units) [...] the following activities. For each question, please st. george only one response. S1 Standing for long [...] Plan: The client reports no currently identified synagogue, ethnic or cultural issues relevant to therapy. Planing Machine Operator services are not indicated. Modifications to assist [...] NA. Client will have access to their [facility]' medical record. Lisa Lopez LP February 06, 2017 L DRAFTING TECHNICIAN documented in this encounter Plan of Treatment Not on filedocumented as of this encounter Visit Diagnoses Diagnosis Anxiety - Primary Anxiety state, unspecified documented in this encounter Additional Health Concerns Assessment Noted Time PHQ-9 Depression Total Score: 7 12/19/2016 3:37 PM CDT documented as of this encounter Care Teams Strawhat Sizer Relationship Specialty Start Date End Date Gina Bautista PCP - General Physician Retort Cooler 5 09/03/21 Gina Key PCP - Assigned PCP 01/12/15 05/11/18 [facility] NO INFO AVAILABLE 01/23/2022 Gina Bautista Physician Retort Cooler 01/31/15 Gina Key, Assigned PCP 01/12/15 [facility] NO INFO AVAILABLE 01/23/2022 documented as of this encounter
--- OUTSIDE RECORDS SUMMARY | 2022-02-10 18:36 | XMS_ITS | Encounter Summary ---
:1985 Author Organization [facility] Address [address] [place] [address] Care Team Providers Name Role Phone Gina Bautista PA-C Primary Care Provider Unavaila Gina Foley PA-C Unavailable Unavailabl Gina Marrero PA-C Unavailable UnavailGina Hanna PA-C Unavailable Unavailabl e Encounter Details Date Type Department Care Team Description 04/27/2015 Orders Only [facility] Iro n deficiency anemia, [place] [facility] unspecified iron [address] [place] [place] [address] Social History Tobacco Use Types [...] deficiency Resu lts for this BINDING CAPACITY RN ON SITE anemia, unspecified proc edure are in iron deficiency the results section. FERRITIN Routine 04/27/2015 11:50 AM Iron deficiency Resul ts for this RN ON SITE anemia, unspecified procedur e are in iron deficiency the results section. documented in this encounter Results (ABNORMAL) Iron and iron binding capacity (04/27/2015 11:50 AM RN ON SITE) [facility] Time Signature Iron 13 (L) 35 - 180 [place] ug/dL [facility] Iron Binding 619 (H) 240 - 430 [place] Cap ug/dL [facility] Iron Saturation 2 (L) 15 - 46 % [facility] Specimen Anatomical Collection Method Collection Time Receive d Time (Source) Location / / Volume Laterality Blood specimen 04/27/2015 11:50 6 (specimen) AM RN ON SITE 11:51 AM RN ON SITE Gina ALONSOC LAB - BLOOD ORDERABLES Performing Organization Address City/[facility]/ZIP Code Phon e Number [facility] [address] [place] [phone] (ABNORMAL) Ferritin (04/27/2015 11:50 AM RN ON SITE) athologist Signature Ferritin 2 (L) 12 - 150 [facility] ng/mL [facility] Specimen Anatomical Collection Method Collection Time Receive d Time (Source) Location / / Volume Laterality Blood specimen 04/27/2015 11:50 6 (specimen) AM RN ON SITE 11:51 AM RN ON SITE Gina RAMIREZ-C LAB - BLOOD ORDERABLES Performing Organization Address City/[facility]/ZIP Code Phon e Number [facility] [address] [place] [phone] documented in this encounter Visit Diagnoses Diagnosis Iron deficiency anemia, unspecified iron deficiency documented in this encounter Additional Health Concerns Assessment Noted Time PHQ-9 Depression Total Score: 16 04/26/2015 8:54 AM CS T documented as of this encounter Care Teams Sexologist Relationship Specialty Start Date End Date Gina Bautista PCP - General Physician Mental Health Consultant 5 09/03/21 Gina Key PCP - Assigned PCP 01/12/15 05/11/18 PAJudi NO INFO AVAILABLE 01/23/2022 Gina Bautista, Physician Mental Health Consultant 01/31/15 Gina Key, Assigned PCP 01/12/15 PAJudi NO INFO AVAILABLE 01/23/2022 documented as of this encounter
--- OUTSIDE RECORDS SUMMARY | 2022-02-10 18:36 | XMS_ITS | Encounter Summary ---
:1985 Author Organization [facility] Address [address] [place] [address] Care Team Providers Name Role Phone Gina Bautista PA-C Primary Care Provider UnavailGina Joyner PA-C Unavailable Unavailabl e Gina Bautista PA-C Unavailable Unavailabl Gina Marrero PA-C Unavailable Unavailabl e Encounter Details Date Type Department Care Team Description 06/11/2017 Hospital Pathology [facility] Results MD Brynn [address] [id number] (Wo rk) Social History Tobacco Use Types [...] Procedure Name Priority Date/Time Associated Diagnosis Comme [facility] SURGICAL PATHOLOGY Routine 06/11/2017 11:30 AM Re sults for this EXAM CDT procedure are i n the results section. documented in this encounter Results Surgical pathology exam (06/11/2017 11:30 AM CDT) Component Value Ref Test Analysis Performed At [facility] Method Time Signature Copath Report Patient Name: CARLEY JO COPATH MR#: [id number] Specimen #: [id number] Collected: 06/11/2017 Received: 06/11/2017 Reported: 06/12/2017 14:08 [...] par ts or translucent vesicles are identified. Reel Man sections are submitted in 2 blocks. ??The rem ainder of the specimen is handled per [facility] POC protocol. (Dictated by: ASHLEY Martinez 06/11/2017 03:17 PM) MICROSCOPIC: Microscopic examination is performed. CPT Codes: A: 91938-AW3, [facility] LOCATION: [facility] [address] [place] [address] ??[phone] COLLECTION SITE: Client: [facility] Location: [id number] (F) Specimen Anatomical Collection Method Collection Time Receive d Time (Source) Location / / Volume Laterality 06/11/2017 11:30 06/11/2017 2:41 AM CDT PM CDT Ryne GUZMÁN - ADENIKE Performing Organization Address City/State/ZIP Code Phon e Number [place] documented in this encounter Visit Diagnoses Not on filedocumented in this encounter Additional Health Concerns Assessment Noted Time PHQ-9 Depression Total Score: 10 05/09/2017 8:01 AM CS T documented as of this encounter Care Teams Claims Analyst Relationship Specialty Start Date End Date Gina Bautista, EVA - General Physician Collections Assistant 5 09/03/21 Gina Key, PCP - Assigned PCP 01/12/15 05/11/18 PA-C NO INFO AVAILABLE 01/23/2022 Gina Bautista, Physician Collections Assistant 01/31/15 [place] Gina Bautista, Assigned PCP 01/12/15 PA-C NO INFO AVAILABLE 01/23/2022 documented as of this encounter
--- OUTSIDE RECORDS SUMMARY | 2022-02-10 18:36 | XMS_ITS | Encounter Summary ---
:1985 Author Organization [facility] Address [address] [place] [address] Care Team Providers Name Role Phone Paul Palumbo PA-C Primary Care Provider Oscar ble Paul Palumbo PA-C Unavailable Unavailabl e Paul Palumbo PA-C Unavailable Unavailabl e Paul Palumbo PA-C Unavailable Unavailabl e Reason for Referral Consultation - Closed Specialty Diagnoses / Procedures Referred By Contact Refer red To Contact Diagnoses Low hemoglobin S/P gastric bypass Vitamin B 12 deficiency Paul Palumbo [facility] NO INFO AVAILABLE [address] [place] [address] 01/23/2022 [address] [place] [address] Phone: [phone] Fax: Referral ID Status Reason Start Date Expiration Date Visits Requ ested Visits Authorized [id number] Closed 12/24/2016 12/24/2017 1 1 CLINICAL RESEARCH NURSE COORDINATOR - Closed Specialty Diagnoses / Procedures Referred By Contact Refer red To Contact Diagnoses Family planning counseling IUD check up Paul Palumbo [facility] [place] NO INFO AVAILABLE [address] [facility] 01/23/2022 [place] [address] Phone: Fax: Referral ID Status Reason Start Date Expiration Date Visits Requ ested Visits Authorized [id number] Closed 12/19/2016 12/19/2017 1 1 Reason for Visit Reason Comments Physical Flu Shot Encounter Details Date Type Department Care Team Description 12/19/2016 Office Visit [facility] Paul Palumbo general medical examination at a health care facility (Primary Dx); Clinic Jigna Vance PA-C 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 syndrome? No Form completed by patient Paul Palumbo PA-C - 12/19/2016 2:50 PM [...] removed today Today's PHQ-2 Score: PHQ-2 (??1998 [facility]) 12/19/2016 Q1: Little interest or pleasure in [...] will refer to OB for removal. - CLINICAL RESEARCH NURSE COORDINATOR REFERRAL 9. Family planning counseling Patient interested in future , was high risk in past, had 4 miscarriages. Will refer to CLINICAL RESEARCH NURSE COORDINATOR to discuss future conception. - CLINICAL RESEARCH NURSE COORDINATOR REFERRAL 10. Need for prophylactic vaccination and inoculation against influenza - FLU VAC, SPLIT VIRUS IM > 3 YO (QUADRIVALENT) [59260] - Vaccine Administration, Initial [50346] COUNSELING: Reviewed preventive health counseling, as reflected [...] hemoglobin and mood issues. Paul Palumbo PA-C [facility] Answers for HPI/ROS submitted by the [...] Type Priority Associated Diagnoses Order S chedule CLINICAL RESEARCH NURSE COORDINATOR REFERRAL Referral Routine Family planning Ordered: 12/19/2016 [...] or this PM CDT medical examination [facility] are in a health care facility [...] or this PM CDT medical examination at [facility] are in a health care facility the r esults section. COMPREHENSIVE Routine 12/19/2016 3:33 Hypothyroidism due to Re sults for this METABOLIC PANEL PM CDT acquired atrophy of [facility] are in thyroid the results Overweight [...] T4 reflex FUTURE 2mo (04/10/2017 2:35 PM MUFFLE WORKER) athologist Signature TSH 10.56 (H) 0.40 - 04/12/2017 [facility] 4.00 mU/L 1:28 PM MUFFLE WORKER [facility] Specimen Anatomical Collection Method Collection Time Receive d Time (Source) Location / / Volume Laterality Blood specimen 04/10/2017 2:35 PM 018 2:36 (specimen) MUFFLE WORKER PM MUFFLE WORKER Paul Palumbo PA-C LAB - BLOOD ORDERABLES Performing Organization Address City/[facility]/ZIP Code Phon e Number [facility] [address] [place] [address] (ABNORMAL) Vitamin D Deficiency (04/10/2017 2:35 PM MUFFLE WORKER) athologist Signature Vitamin D 13 (L) 20 - 75 04/11/2017 [facility] ug/L 11:46 AM [facility] MEDICAL screening [facility] Comment: Season, race, dietary intake, and treatm ent affect the concentration of 20-bkpyysf-Vuhoisp D. Values may decreas e during winter [...] specimen 04/10/2017 2:35 PM 018 2:36 (specimen) MUFFLE WORKER PM MUFFLE WORKER Paul Palumbo PA-C LAB - BLOOD ORDERABLES Performing Organization Address City/State/ZIP Code Phon e Number [facility] [address] [place] [address] [facility] T4 free (12/19/2016 3:33 PM CDT) P athologist Signature T4 Free 1.00 0.76 - 1.46 12/20/2016 [facility] ng/dL 1:20 PM CDT [facility] Specimen Anatomical Collection Method Collection Time Receive d Time (Source) Location / / Volume Laterality 12/19/2016 3:33 PM 7 3:34 CDT PM CDT Paul Palumbo PA-C LAB - BLOOD ORDERABLES Performing Organization Address City/State/ZIP Code Phon e Number [facility] [address] [place] [address] WBC Differential (12/19/2016 3:33 PM CDT) Patholo gist Method Time Signature Diff Method Automated 12/19/2016 [place] Method 9:06 PM [facility] % Neutrophils 64.0 % 12/19/2016 [place] 9:06 PM [facility] % Lymphocytes 25.2 % 12/19/2016 [place] 9:06 PM [facility] % Monocytes 7.7 % 12/19/2016 [place] 9:06 PM [facility] % Eosinophils 2.3 % 12/19/2016 [place] 9:06 PM [facility] % Basophils 0.5 % 12/19/2016 [place] 9:06 PM [facility] % Immature 0.3 % 12/19/2016 [facility] [place] Granulocytes 9:06 PM [facility] Nucleated RBCs 0 0 /100 12/19/2016 [place] 9:06 PM [facility] Absolute 4.2 1.6 - 8.3 12/19/2016 [place] Neutrophil 10e9/L 9:06 PM [facility] Absolute 1.7 0.8 - 5.3 12/19/2016 [facility] [place] Lymphocytes 10e9/L 9:06 PM [facility] Absolute 0.5 0.0 - 1.3 12/19/2016 [facility] Monocytes 10e9/L 9:06 PM [facility] Absolute 0.2 0.0 - 0.7 12/19/2016 [place] Eosinophils 10e9/L 9:06 PM [facility] Absolute 0.0 0.0 - 0.2 12/19/2016 [facility] Basophils 10e9/L 9:06 PM [facility] Abs Immature 0.0 0 - 0.4 12/19/2016 [facility] Granulocytes 10e9/L 9:06 PM [facility] Absolute 0.0 12/19/2016 [facility] Nucleated RBC 9:06 PM [facility] Anisocytosis Slight 12/19/2016 [facility] 9:06 PM [facility] Ovalocytes Slight 12/19/2016 [facility] 9:06 PM [facility] Microcytes Present 12/19/2016 [facility] 9:06 PM [facility] Platelet Normal 12/19/2016 [facility] Estimate 9:06 PM [facility] Specimen Anatomical Collection Method Collection Time Receive d Time (Source) Location / / Volume Laterality 12/19/2016 3:33 PM 7 4:07 CDT PM CDT Paul Palumbo PA-C LAB - BLOOD ORDERABLES Performing Organization Address City/State/ZIP Code Phon e Number [facility] [address] [address] [facility] [address] [phone] Reticulocyte Count (12/19/2016 3:33 PM CDT) P athologist Signature % Retic 1.1 0.5 - 2.0 12/19/2016 [facility] % 7:25 PM [facility] Absolute Retic 43.0 25 - 95 12/19/2016 [facility] 10e9/L 7:25 PM [facility] Specimen Anatomical Collection Method Collection Time Receive d Time (Source) Location / / Volume Laterality Blood specimen 12/19/2016 3:33 PM 017 4:07 (specimen) CDT PM CDT Paul Palumbo PA-C LAB - BLOOD ORDERABLES Performing Organization Address City/State/ZIP Code Phon e Number [facility] [address] [address] [facility] [address] [phone] Blood Morphology Pathologist Review (12/19/2016 3:33 PM CDT) Component Value Ref Test Analysis Performed Pathologis t Range Method Time At Signature Copath Patient Name: TASHA PHELAN Report MR#: [id number] Specimen #: [id number] Collected: 12/19/2016 Received: 12/22/2016 Reported: 12/22/2016 10:01 [...] 12-22-2016 @ 10:01 AM). CPT Codes: A: 81295-QQAQ TESTING LAB LOCATION: [address] ??[phone] COLLECTION SITE: Client: ??[facility] Location: ??RMFP (R) Specimen Anatomical Collection [...] ORDERABLES Performing Organization Address City/[facility]/ZIP Code Phon e Number [address] (ABNORMAL) Vitamin D Deficiency (12/19/2016 3:33 PM CDT) athologist Signature Vitamin D 17 (L) 20 - 75 12/21/2016 [facility] Deficiency ug/L 3:23 PM CDT [facility] Comment: Season, race, dietary intake, and treatm ent affect the concentration of 64-wmuoeqz-Anjphsg D. Values may decreas e during winter [...] ORDERABLES Performing Organization Address City/[facility]/ZIP Code Phon e Number [address] (ABNORMAL) Comprehensive metabolic panel (12/19/2016 3:33 PM CDT) [facility] gist Method Time Signature Sodium 140 133 - 144 12/20/2016 [place] mmol/L 12:54 PM CDT [facility]INICS [facility] Potassium 4.2 3.4 - 5.3 12/20/2016 [place] mmol/L 12:54 PM CDT [facility] Chloride 110 (H) 94 - 109 12/20/2016 [place] mmol/L 12:54 PM CDT [facility] Carbon Dioxide 21 20 - 32 12/20/2016 [place] mmol/L 12:54 PM CDT [facility] Anion Gap 9 3 - 14 12/20/2016 [place] mmol/L 12:54 PM CDT [facility] Glucose 85 70 - 99 12/20/2016 [place] mg/dL 12:54 PM T [facility] Urea Nitrogen 9 7 - 30 12/20/2016 [place] mg/dL 12:[address] [facility] Creatinine 0.75 0.52 - 12/20/2016 [place] 1.04 mg/dL 12:[address] [facility] GFR Estimate >90 >60 12/20/2016 [facility] mL/min/1.7 12:54 PM CDT CLINICS m2 [facility] Comment: Non GFR Calc GFR Estimate If >90 >60 mL/min/1.7m2 12/20/2016 12:54 PM [facility] Black T [facility] Comment: GFR Calc Calcium 8.7 8.5 - 10.1 12/20/2016 12:54 PM [facility] mg/dL T [facility] Bilirubin Total 0.4 0.2 - 1.3 mg/dL 12/20/2016 12:54 P [facility] Albumin 3.9 3.4 - 5.0 g/dL 12/20/2016 12:54 PM [facility] Protein Total 7.6 6.8 - 8.8 g/dL 12/20/2016 12:54 [facility] Alkaline Phosphatase 61 40 - 150 U/L 12/20/2016 1:02 PM [facility] ALT 20 0 - 50 U/L 12/20/2016 12:54 PM [facility] AST 15 0 - 45 U/L 12/20/2016 12:54 PM [facility] Specimen Anatomical Collection Method Collection Time Receive d Time (Source) Location / / Volume Laterality Blood specimen 12/19/2016 3:33 PM 017 3:34 (specimen) CDT PM CDT Paul Palumbo PA-C LAB - BLOOD ORDERABLES Performing Organization Address City/[facility]/ZIP Code Phon e Number [facility] [address] [place] [address] (ABNORMAL) TSH with free T4 reflex (12/19/2016 3:33 PM CDT) P athologist Signature TSH 8.78 (H) 0.40 - 12/20/2016 [facility] 4.00 mU/L 1:02 PM CDT [facility] Specimen Anatomical Collection Method Collection Time Receive d Time (Source) Location / / Volume Laterality Blood specimen 12/19/2016 3:33 PM 017 3:34 (specimen) CDT PM CDT Paul Palumbo PA-C LAB - BLOOD ORDERABLES Performing Organization Address City/[facility]/ZIP Code Phon e Number [facility] [address] [place] [address] (ABNORMAL) Iron and iron binding capacity (12/19/2016 3:33 PM CDT) [facility] gist Method Time Signature Iron 10 (L) 35 - 180 12/20/2016 [facility] ug[facility]dL [facility] [facility] Iron Binding 528 (H) 240 - 430 12/20/2016 [place] Cap ug/dL 12:[address] [facility] Iron Saturation 2 (L) 15 - 46 % 12/20/2016 [place] Index 12:[address] [facility] Specimen Anatomical Collection Method Collection Time Receive d Time (Source) Location / / Volume Laterality Blood specimen 12/19/2016 3:33 PM 017 3:34 (specimen) CDT PM CDT Paul Palumbo PA-C LAB - BLOOD ORDERABLES Performing Organization Address City/[facility]/ZIP Code Phon e Number [facility] [address] [address] (ABNORMAL) Ferritin (12/19/2016 3:33 PM CDT) athologist Signature Ferritin 2 (L) 12 - 150 12/20/2016 [facility] ng/mL 12:55 PM CDT [facility] Specimen Anatomical Collection Method Collection Time Receive d Time (Source) Location / / Volume Laterality Blood specimen 12/19/2016 3:33 PM 017 3:34 (specimen) CDT PM CDT Paul Palumbo PA-C LAB - BLOOD ORDERABLES Performing Organization Address [facility]/ZIP Code Phon e Number [facility] [address] [place] [address] (ABNORMAL) CBC with platelets (12/19/2016 3:33 PM CDT) athologist Signature WBC 6.4 4.0 - 11.0 12/19/2016 [facility] 10e9/L 3:43 PM CDT [facility] RBC Count 3.97 3.8 - 5.2 12/19/2016 [place] 10e12/L 3:43 PM CDT [facility] Hemoglobin 7.2 (L) 11.7 - 15.7 12/19/2016 [facility] g/dL 3:43 PM CDT [facility] Comment: Critical Value called to and read back b y TO PAUL PALUMBO PAC ON12/19/16 1540 DA Hematocrit 25.5 (L) 35.0 - 47.0 % 12/19/2016 3:43 PM CDT [facility] MCV 64 (L) 78 - 100 fl 12/19/2016 3:43 PM CDT [facility] MCH 18.1 (L) 26.5 - 33.0 pg 12/19/2016 3:43 PM CDT [facility] MCHC 28.2 (L) 31.5 - 36.5 g/dL 12/19/2016 3:[address] [facility] Comment: Results confirmed by repeat mónica t RDW 17.4 (H) 10.0 - 15.0 % 12/19/2016 3:43 PM [facility] Platelet Count 375 150 - 450 10e9/L 12/19/2016 3:43 PM [facility] Specimen Anatomical Collection Method Collection Time Receive d Time (Source) Location / / Volume Laterality Blood specimen 12/19/2016 3:33 PM 017 3:34 (specimen) CDT PM CDT Paul Palumbo PA-C LAB - BLOOD ORDERABLES Performing Organization Address City/State/ZIP Code Phon e Number [facility] [address] [address]68 Pap imaged thin layer screen reflex to HPV if ASCUS - recommend age 25 - 29 (12/19/2016 3:05 PM CDT) Component Value Ref Test Analysis Performed At [facility] Range Method Time Signature PAP NIL COPATH Copath Report COPATH Patient Name: TASHA PHELAN MR#: [id number] Specimen #: [id number] Collected: 12/19/2016 Received: 12/22/2016 Reported: 12/23/2016 13:10 [...] MATEUSZ Rodrigez (ASCP) Processed and screened at [facility] e[facility] CLINICAL HISTORY: Currently not having periods, Intra-Uterine Device, Papanicolaou Test Limitations: ??Cervical cytology is a scre ening test with limited sensitivity; regular screening is critical for cancer prevention; Pap tests are primarily effective for the diagnosis/prevention of squamous cell carcinoma, not adenoca rcinomas or other cancers. TESTING LAB LOCATION: [facility] [address] [place], [place] ??[address] COLLECTION SITE: Client: ??[facility] Location: RMFP (R) Specimen (Source) Anatomical Collection Method Collection Time Re ceived Time Location / / Volume Laterality Cytologic 12/19/2016 3:05 12/22/2016 material PM CDT 10:43 AM CDT (specimen) Paul RAMIREZ-C LAB - OPTIME CLINICAL SPE MAHESH Performing Organization Address City/State/ZIP Code Phon e [...] documented as of this encounter Care Teams Rolling Machine Operator Automatic Relationship Specialty Start Date End Date Paul Palumbo PCP - General Physician Candle Molder Hand 5 09/03/21 Paul Key PCP - Assigned PCP 01/12/15 05/11/18 [facility] NO INFO AVAILABLE 01/23/2022 Paul Palumbo, Physician Candle Molder Hand 01/31/15 Paul Key, Assigned PCP 01/12/15 [place] NO INFO AVAILABLE 01/23/2022 documented as of this encounter
--- OUTSIDE RECORDS SUMMARY | 2022-02-10 18:36 | XMS_ITS | Encounter Summary ---
:1985 Author Organization [facility] Address [address] [place] [address]. [place] [address] Care Team Providers Name Role Phone Gina Bautista PA-C Primary Care Provider Gina Kee PA-C Unavailable Unavailabl e Gina Bautista PA-C Unavailable Unavailabl Gina Marrero PA-C Unavailable Unavailabl e Reason for Visit Mental Health Outpatient (Routine) - Closed Specialty Diagnoses / Procedures Referred By Contact Refer red To Contact Gina Bautista [facility] NO INFO AVAILABLE [address] [place] [address] 01/23/2022 [place] [address] Phone: Fax: Referral ID Status Reason Start Date Expiration Date Visits Requ ested Visits Authorized [facility] Closed 01/14/2017 01/14/2018 1 52 Encounter Details Date Type Department Care Team Description 02/19/[address] [facility] Lisa Lopez LP Anxiety (Primary Dx) Services [id number] [place] [address] [phone] Social History Tobacco Use Types Packs/Day [...] decree) Talks to relatives ( who are tool filer) to get concrete info. Explored TIP skills. [...] plan. Lisa Lopez LP February 19, 2017 ICAL TRAINER documented in this encounter Plan of Treatment Not on filedocumented as of this encounter Visit Diagnoses Diagnosis Anxiety - Primary Anxiety state, unspecified documented in this encounter Additional Health Concerns Assessment Noted Time PHQ-9 Depression Total Score: 9 02/19/2017 2:07 PM PHYSICAL TRAINER documented as of this encounter Care Teams Technical Producer Relationship Specialty Start Date End Date Gina Bautista, PCP - General Physician Practical Nursing Faculty 5 09/03/21 Gina Key, PCP - Assigned PCP 01/12/15 05/11/18 [facility] NO INFO AVAILABLE 01/23/2022 Gina Bautista, Physician Practical Nursing Faculty 01/31/15 Gina Key, Assigned PCP 01/12/15 [facility] NO INFO AVAILABLE 01/23/2022 documented as of this encounter
--- OUTSIDE RECORDS SUMMARY | 2022-02-10 18:36 | XMS_ITS | Encounter Summary ---
:1985 Author Organization [place] Address [address] [place] [address] Care Team Providers Name Role Phone Gina Bautista PA-C Primary Care Provider Gina Kee PA-C Unavailable Unavailabl e Gina Bautista PA-C Unavailable Unavailabl Gina Marrero PA-C Unavailable Unavailabl e Reason for Visit Reason Onset Date Comments Patient Request for Note/Letter 04/26/2015 Encounter Details Date Type Department Care Team Description 04/26/2015 Telephone [facility] Gina Bautista Request for Clinic Jigna Vance PA-C Note/Letter [id number] [address] [place] NO INFO AVAILABLE MORAIMA Benito 01/23/2022 [id number] Social History Tobacco Use Types Packs/Day Years Used Date Smoking Tobacco: Never Smokeless Tobacco: Never Alcohol Use Standard Drinks/Week Comments Yes 0 (1 standard drink = 0.6 oz pure alcoho l) Sex Assigned at Date Recorded Not on file documented as of this encounter Miscellaneous Notes Telephone Encounter - Gina Bautista PA-C - 04/27/2015 8:14 AM MOTHER TESTER Note for patient provided for missed work, given to Meg. Gina Bautista PA-C ER TESTER Telephone Encounter - Irma Boggs RN - 04/26/2015 8:22 AM CST Patient [...] pcp in office Thursday. Irma Boggs RN ER TESTER documented in this encounter Plan of Treatment Not on filedocumented as of this encounter Visit Diagnoses Not on filedocumented in this encounter Additional Health Concerns Assessment Noted Time PHQ-9 Depression Total Score: 16 04/26/2015 8:54 AM CS T documented as of this encounter Care Teams Client Services Analyst Relationship Specialty Start Date End Date Gina Bautista PCP - General Physician Freight Inspector 5 09/03/21 Gina Key, PCP - Assigned PCP 01/12/15 05/11/18 [facility] NO INFO AVAILABLE 01/23/2022 Gina Bautista, Physician Freight Inspector 01/31/15 Gina Key, Assigned PCP 01/12/15 [facility] NO INFO AVAILABLE 01/23/2022 documented as of this encounter
--- OUTSIDE RECORDS SUMMARY | 2022-02-10 18:36 | XMS_ITS | Encounter Summary ---
:1985 Author Organization [facility] Address [address] [place] [address] Care Team Providers Name Role Phone Gina Bautista PA-C Primary Care Provider Unavaila ble Gina Bautitsa PA-C Unavailable Unavailabl e Encounter Details Date Type Department Care Team Description 08/06/2020 Records - [facility] CONVERSION Provider, Histor ical Social History [...] documented as of this encounter Care Teams Human Anatomy Teacher Relationship Specialty Start Date End Date Gina Bautista PA-C PCP - General Physician Generating Station Mechanic 09/03/21 Gina Bautista PA-C Physician Generating Station Mechanic documented as of this encounter
--- OUTSIDE RECORDS SUMMARY | 2022-02-10 18:36 | XMS_ITS | Encounter Summary ---
:1985 Author Organization [facility] Address [address] [place] [address]. [place] [address] Care Team Providers Name Role Phone Gina Bautista PA-C Primary Care Provider Jaynaa ble Gina Bautista PA-C Unavailable Unavailabl e Gina Bautista PA-C Unavailable Unavailabl e Gina Bautista PA-C Unavailable Unavailabl e Reason for Visit Reason Comments IUD Encounter Details Date Type Department Care Team Description 01/27/[address] [facility] Nadine Monreal Encou nter for IUD removal (Primary Dx); [facility] Encounter for preconception consultation [place] [address] [place] [address] [facility] [address] [place], [place] (Work) [address] [phone] Social History Tobacco Use Types Packs/Day Years Used Date Smoking Tobacco: Never Smokeless Tobacco: Never Alcohol Use Standard Drinks/Week Comments Yes 0 (1 standard drink = 0.6 oz pure alcoho l) Sex Assigned at Date Recorded Not on file documented as of this encounter Last Filed Vital Signs Vital Sign Reading Time Taken Comments Blood Pressure 100/60 01/27/2017 1:05 PM [facility]IC SITE COORDINATOR Pulse - - Temperature - - Respiratory Rate - - Oxygen Saturation - - Inhaled Oxygen Concentration - - Weight 79.3 kg (174 lb 12.8 oz) 01/27/2017 1:05 PM WIC SITE COORDINATOR Height - - Body Mass Index [...] muscle every 30 days vitamin D (ERGOCALCIFEROL) 14492 UNIT capsule Take 1 capsule (50,000 Units) [...] with hematology as needed. Nadine Monreal MD [facility] SITE COORDINATOR documented in this encounter Nursing Notes Nataliia Rivas CMA - 01/27/2017 1:00 PM CST Chief Complaint Patient presents with ??? IUD Was not able to see strings at 12/19/2016 visit. Nataliia iRvas MA Initial BP 100/60 (BP Location: Right arm, Patient Position: Chair, Cuff Size: Adult Regular) Wt 174 lb 12.8 oz (79.3 kg) BMI 28.21 kg/m2 Estimated body mass index is 28.21 kg/(m^2) as calculated from the following: Height as of 12/19/16: 5' 6 (1.676 m). Weight as of this encounter: 174 lb 12.8 oz (79.3 kg). Medication Reconciliation: complete SITE COORDINATOR documented in this encounter Plan of Treatment Not on filedocumented as of this encounter Procedures Procedure Name Priority Date/Time Associated Diagnosis Comme nts HC REMOVE INTRAUTERINE Routine 01/27/2017 1:33 PM Encounter fo r IUD DEVICE WIC SITE COORDINATOR removal documented in this encounter Visit Diagnoses Diagnosis Encounter for IUD removal - Primary Encounter for removal of intrauterine co ntraceptive device Encounter for preconception consultation documented in this encounter Additional Health Concerns Assessment Noted Time PHQ-9 Depression Total Score: 7 12/19/2016 3:37 PM CDT documented as of this encounter Care Teams Direct Chill Caster Relationship Specialty Start Date End Date Gina Bautista PCP - General Physician Screen Printing Paster 5 09/03/21 Gina Key PCP - Assigned PCP 01/12/15 05/11/18 [place] NO INFO AVAILABLE 01/23/2022 Gina Bautista, Physician Screen Printing Paster 01/31/15 Gina Key, Assigned PCP 01/12/15 [place] NO INFO AVAILABLE 01/23/2022 documented as of this encounter
--- OUTSIDE RECORDS SUMMARY | 2022-02-10 18:36 | XMS_ITS | Encounter Summary ---
:1985 Author Organization [place] Address [address] [place] [address] Care Team Providers Name Role Phone Gina Bautista PA-C Primary Care Provider Gina Kee PA-C Unavailable Unavailabl e Gina Bautista PA-C Unavailable Unavailabl Gina Marrero PA-C Unavailable Unavailabl e Reason for Visit Reason Comments Cough x 3-4 days Derm Problem x 1 day Encounter Details Date Type Department Care Team Description 01/31/2015 Office Visit [facility] Gina Bautista litis and abscess of leg (Primary Dx); Clinic Jigna Vance PA-C Upper respiratory tract infection, unspe cified upper respiratory infection [address] NO INFO [place], [place] AVAILABLE [address] 01/23/2022 Social History Tobacco Use Types Packs/Day Years Used Date Smoking Tobacco: Never Smokeless Tobacco: Never Alcohol Use Standard Drinks/Week Comments Yes 0 (1 standard drink = 0.6 oz pure alcoho l) Sex Assigned at Date Recorded Not on file documented as of this encounter Last Filed Vital Signs Vital Sign Reading Time Taken Comments Blood Pressure 108/56 01/31/2015 3:14 PM DICE MANAGER Pulse 82 01/31/2015 3:14 PM DICE MANAGER Temperature 36.7 ??C (98.1 ??F) 01/31/2015 3:14 PM DICE MANAGER Respiratory Rate 18 01/31/2015 3:14 PM DICE MANAGER Oxygen Saturation 99% 01/31/2015 3:14 PM DICE MANAGER Inhaled Oxygen Concentration - - Weight 82.4 kg (181 lb 9.6 oz) 01/31/2015 3:14 PM DICE MANAGER Height 167.6 cm (5' 6) 01/31/2015 3:14 PM DICE MANAGER Body Mass Index 29.31 01/31/2015 3:14 PM DICE MANAGER documented in this encounter Progress Notes Gina [...] the plan of care. Gina Bautista PA-C [facility] MANA[facility] documented in this encounter Nursing Notes Monica [...] phone number for results from this visit [phone] Marianne Tony CMA (AAMA) 01/31/2015 3:16 PM MANAGER documented in this encounter Plan of [...] documented as of this encounter Care Teams Family Educator Relationship Specialty Start Date End Date Gina Bautista PCP - General Physician Computed Tomography Scanner Operator 5 09/03/21 Gina Key PCP - Assigned PCP 01/12/15 05/11/18 PAJudi NO INFO AVAILABLE 01/23/2022 Gina Bautista Physician Computed Tomography Scanner Operator 01/31/15 Gina Key, Assigned PCP 01/12/15 PAJudi NO INFO AVAILABLE 01/23/2022 documented as of this encounter
--- OUTSIDE RECORDS SUMMARY | 2022-02-10 18:36 | XMS_ITS | Encounter Summary ---
:1985 Author Organization [facility] Address [address] [place] [address] Care Team Providers Name Role Phone Gina Bautista PA-C Primary Care Provider Gina Kee PA-C Unavailable Unavailabl Gina Marrero PA-C Unavailable Unavailabl Gina Marrero PA-C Unavailable Unavailabl e Reason for Visit Reason Comments URI Encounter Details Date Type Department Care Team Description 06/25/2015 Office Visit [facility] Serum, Ro Viral URI (Primary Dx); Yony Yarbrough MD Acute pharyngitis, unspecified etiology [address] [facility] [place] [address] [place] [phone] [address] [place], [place] [address] Social History Tobacco Use [...] list, Allergies, and Medical/Social/Surgical histories reviewed in [facility] andupdated as appropriate. OBJECTIVE: BP [...] Follow up with Provider - alexis Salgado [facility] YONY documented in this encounter Nursing [...] (81.285 kg). BP completed using cuff size: lubna Womack LPN documented in this encounter Plan [...] Component Value Ref Test Analysis Performed At Path[facility] Rowing Team gist Range Method Time Signature Specimen Throat [facility] YONY Culture Micro No Beta [place] Streptococcus CLINICS isolated [place] Micro Report FINAL 06/27/2015 [place] Status [facility] Specimen Anatomical Collection Method Collection Time Receive d Time (Source) Location / / Volume Laterality 06/25/2015 5:20 PM 6 5:25 CDT PM CDT Ro Salgado MD LAB - MICRO GENERAL ORDERABL Performing Organization Address City/State/ZIP Code Phon e Number [facility] [address] [place] [address] Strep, Rapid Screen (06/25/2015 5:20 PM CDT) Component Value Ref Test Analysis Performed At [facility] Range Method Time Signature Specimen Throat [facility] YONY Rapid Strep A NEGATIVE: No Group A strepto coccal antigen detected by immunoassay, await [place] Screen culture report. CLINICS Y[place]Y Micro Report FINAL 06/25/2015 [place] Status [facility] Specimen Anatomical Collection Method Collection Time Receive d Time (Source) Location / / Volume Laterality Specimen from 06/25/2015 5:20 PM 06/25/19 16 5:25 throat CDT PM CDT (specimen) Ro Salgado MD LAB - MICRO GENERAL ORDERABL ES Performing Organization Address City/State/ZIP Code Phon e Number [address] [address] documented in this encounter Visit Diagnoses Diagnosis Viral URI - Primary Acute upper respiratory infections of un specified site Acute pharyngitis, unspecified etiology documented in this encounter Additional Health Concerns Assessment Noted Time PHQ-9 Depression Total Score: 16 04/26/2015 8:54 AM CS T documented as of this encounter Care Teams Contract Preparer Relationship Specialty Start Date End Date Gina Bautista PCP - General Physician Flue Blower 5 09/03/21 PALiuC Gina Bautista, PCP - Assigned PCP 01/12/15 05/11/18 [place] NO INFO AVAILABLE 01/23/2022 Gina Bautista, Physician Flue Blower 01/31/15 PALiuC Gina Bautista, Assigned PCP 01/12/15 PAJudi NO INFO AVAILABLE 01/23/2022 documented as of this encounter
--- OUTSIDE RECORDS SUMMARY | 2022-02-10 18:36 | XMS_ITS | Encounter Summary ---
:1985 Author Organization [facility] Address [address] [place] [address] Care Team Providers Name Role Phone Gina Bautista PA-C Primary Care Provider Gina Kee PA-C Unavailable Unavailabl e Gina Bautista PA-C Unavailable Unavailabl Gina Marrero PA-C Unavailable Unavailabl e Reason for Visit Reason Comments Panel Management Needs PAP Encounter Details Date Type Department Care Team Description 03/13/2015 Documentation Only [facility] Gina Bautista Panel Management Clinic Jigna Vance PA-C (Needs PAP ) [address] AVAILABLE [place] 01/23/2022 [phone] Social History Tobacco Use Types Packs/Day Years Used Date Smoking Tobacco: Never Smokeless Tobacco: Never Alcohol Use Standard Drinks/Week Comments Yes 0 (1 standard drink = 0.6 oz pure alcoho l) Sex Assigned at Date Recorded Not on file documented as of this encounter Progress Notes Mnoica Tony CMA - 03/13/2015 3:48 PM CST [...] for provider review: None Marianne Tony CMA (AAMA) 03/13/2015 3:48 PM [facility]IALS MANAGEMENT MANAGER documented in this encounter Plan of Treatment Not on filedocumented as of this encounter Visit Diagnoses Not on filedocumented in this encounter Additional Health Concerns Assessment Noted Time PHQ-9 Depression Total Score: 13 02/01/2015 7:29 AM CS T documented as of this encounter Care Teams Privacy Analyst Relationship Specialty Start Date End Date Gina Bautista PCP - General Physician Chicken And Fish Butcher 5 09/03/21 Gina Key PCP - Assigned PCP 01/12/15 05/11/18 [place] NO INFO AVAILABLE 01/23/2022 Gina Bautista, Physician Chicken And Fish Butcher 01/31/15 Gina Key, Assigned PCP 01/12/15 [place] NO INFO AVAILABLE 01/23/2022 documented as of this encounter
--- OUTSIDE RECORDS SUMMARY | 2022-02-10 18:36 | XMS_ITS | Encounter Summary ---
:1985 Author Organization [facility] Address [address] [place] [address]. [place] [address] Care Team Providers Name Role Phone Gina Bautista PA-C Primary Care Provider Gina Kee PA-C Unavailable Unavailabl e Gina Bautista PA-C Unavailable Unavailabl Gina Marrero PA-C Unavailable Unavailabl e Reason for Visit Reason Comments Urgent Care URI Colds x3-4- facial pain and pressure, sinus pressure, MAK, achy lymphnofe, L ear pain- unable to hear f rom L ear. Encounter Details Date Type Department Care Team Description 02/22/[address] [facility] Johny Puga, Acute sinusitis with Urgent Care Ferny gage MD symptoms greater [place] [address] 10 days (Primary Dx) [place] [address] [phone] Social History Tobacco Use Types Packs/Day Years Used Date Smoking Tobacco: Never Smokeless Tobacco: Never Alcohol Use Standard Drinks/Week Comments Yes 0 (1 standard drink = 0.6 oz pure alcoho l) Sex Assigned at Date Recorded Not on file documented as of this encounter Last Filed Vital Signs Vital Sign Reading Time Taken Comments Blood Pressure 108/62 02/22/2017 11:59 AM CLIENT EVALUATOR Pulse 61 02/22/2017 11:59 AM CLIENT EVALUATOR Temperature 36.7 ??C (98.1 ??F) 02/22/2017 11:59 AM CLIENT EVALUATOR Respiratory Rate - - Oxygen Saturation 100% 02/22/2017 11:59 AM CLIENT EVALUATOR Inhaled Oxygen Concentration - - Weight - [...] have suggested that the patient Push fluids. NT EVALUATOR documented in this encounter Nursing Notes Nury [...] (79.3 kg). Medication Reconciliation: jennifer Nation CMA (AAMA) NT EVALUATOR documented in this encounter Plan of Treatment Not on filedocumented as of this encounter Visit Diagnoses Diagnosis Acute sinusitis with symptoms greater th an 10 days - Primary Acute sinusitis, unspecified documented in this encounter Additional Health Concerns Assessment Noted Time PHQ-9 Depression Total Score: 9 02/19/2017 2:07 PM CLIENT EVALUATOR documented as of this encounter Care Teams Corporate Safety Coordinator Relationship Specialty Start Date End Date Gina Bautista, PCP - General Physician Pharmaceutical Engineer 5 09/03/21 PALiuC Gina Bautista, PCP - Assigned PCP 01/12/15 05/11/18 PALiuC NO INFO AVAILABLE 01/23/2022 Gina Bautista, Physician Pharmaceutical Engineer 01/31/15 Gina Key, Assigned PCP 01/12/15 PAJudi NO INFO AVAILABLE 01/23/2022 documented as of this encounter
--- OUTSIDE RECORDS SUMMARY | 2022-02-10 18:36 | XMS_ITS | Encounter Summary ---
:1985 Author Organization [place] Address [address] [place] [address] Care Team Providers Name Role Phone Unavailable Primary Care Provider Unavailable Encounter Details Date Type Department Care Team Description 09/30/2005 Results Only [facility] [place] [address] (Wo rk) Social History Tobacco Use Types [...]
--- OUTSIDE RECORDS SUMMARY | 2022-02-10 18:36 | XMS_ITS | Encounter Summary ---
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 TSH WITH FREE T4 Routine 04/10/2017 2:35 PM Hypothyroidism due to Results for this REFLEX TUBERCULOSIS SPECIALIST acquired atrophy of procedur e are in thyroid the results section. T4 FREE Routine 04/10/2017 2:35 PM Vitamin D deficiency R esults for this TUBERCULOSIS SPECIALIST procedure are i n the results section. documented in this encounter Results T4 free (04/10/2017 2:35 PM TUBERCULOSIS SPECIALIST) athologist Signature T4 Free 0.94 0.76 - 1.46 04/12/2017 [facility] ng/dL 1:41 PM TUBERCULOSIS SPECIALIST [facility] Specimen Anatomical Collection Method Collection Time Receive d Time (Source) Location / / Volume Laterality 04/10/2017 2:35 PM 8 2:36 TUBERCULOSIS SPECIALIST PM TUBERCULOSIS SPECIALIST Gina Bautista PA-C LAB - BLOOD ORDERABLES Performing Organization Address City/[facility]/ZIP Code Phon e Number [facility] [address] [place] [address] (ABNORMAL) TSH with free T4 reflex FUTURE 2mo (04/10/2017 2:35 PM TUBERCULOSIS SPECIALIST) athologist Signature TSH 10.56 (H) 0.40 - 04/12/2017 [facility] 4.00 mU/L 1:28 PM [facility] Specimen Anatomical Collection Method Collection Time Receive d Time (Source) Location / / Volume Laterality Blood specimen 04/10/2017 2:35 PM 018 2:36 (specimen) TUBERCULOSIS SPECIALIST PM TUBERCULOSIS SPECIALIST Gina Bautista PA-C LAB - BLOOD ORDERABLES Performing Organization Address City/[facility]/ZIP Code Phon e Number [facility] [address] [place] [address] (ABNORMAL) Vitamin D Deficiency (04/10/2017 2:35 PM TUBERCULOSIS SPECIALIST) athologist Signature Vitamin D 13 (L) 20 - 75 04/11/2017 [facility] Deficiency ug/L 11:46 AM TUBERCULOSIS SPECIALIST [facility] Comment: Season, race, dietary intake, and treatm ent affect the concentration of 21-kaztttf-Sctnyqi D. 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
--- OUTSIDE RECORDS SUMMARY | 2022-02-10 18:36 | XMS_ITS | Encounter Summary ---
:1985 Author Organization [facility] Address [address] [place] [address]. [place] [address] Care Team Providers Name Role Phone Gina Bautista PA-C Primary Care Provider Unavaila ble Gina Bautista PA-C Unavailable Unavailabl Vidya Romero APRN, CNM Unavailable [phone] Clinic, [facility] Unavailable Encounter Details Date Type Department Care Team Description 08/08/2021 Medical Correspondence [facility] Scan, ENDOCRINOLOGY ORDER Health Info [facility] Non-Provider [facility] [address] [place] [phone] Social History Tobacco Use Types Packs/Day [...] documented as of this encounter Care Teams Almond Pan Finisher Relationship Specialty Start Date End Date Gina Bautista, EVA - General Physician Field Services Manager 5 09/03/21 Gina Key, Physician Field Services Manager 01/31/15 Vidya Pollack APRN CNM Operations Supervisor 08/21/[address] [place] [address] [facility], [facility] 08/21/[address] [address] documented as of this encounter
--- OUTSIDE RECORDS SUMMARY | 2022-02-10 18:36 | XMS_ITS | Encounter Summary ---
:1985 Author Organization [facility] Address [address] [place] [address] Care Team Providers Name Role Phone Gina Bautista PA-C Primary Care Provider Unavaila Gina Foley PA-C Unavailable Unavailabl Vidya Romero APRN [facility] Unavailable [phone] [facility], [facility] Unavailable Reason for Referral Consultation (Urgent: 3-5 Days) - Pending Review Specialty Diagnoses / Procedures Referred By Contact Refer red To Contact Endocrinology, Diagnoses Hypothyroidism System, Provider Not Diabetes, and In Metabolism Referral ID Status Reason Start Date Expiration Date Visits V isits Requested Authorized [id number] Pending 2021 2022 1 1 Review Scheduling [...] Referral Urgent: 3-5 Days Hypothyroidism Ex pected: Door Glass Installer Referral (Approximate), Expires: 2022 documented as of this encounter Visit Diagnoses Diagnosis Hypothyroidism - Primary Unspecified hypothyroidism documented in this encounter Additional Health Concerns Assessment Noted Time PHQ-9 Depression Total Score: 10 05/09/2017 8:01 AM CS T documented as of this encounter Care Teams Gasket Former Relationship Specialty Start Date End Date Gina Bautista, PCP - General Physician [place] Dock 5 09/03/21 Gina Key, Physician [place] 01/31/15 Vidya Pollack APRN CNM Railcar Foreman 08/21/[address] [address] [facility], [facility] 08/21/[address] [address] documented as of this encounter
--- OUTSIDE RECORDS SUMMARY | 2022-02-10 18:36 | XMS_ITS | Encounter Summary ---
:1985 Author Organization [facility] Address [address] [place] [address]. [place] [address] Care Team Providers Name Role Phone Gina Bautista PA-C Primary Care Provider Unavaila Gina Foley PA-C Unavailable Unavailabl Gina Marrero PA-C Unavailable UnavailGina Hanna PA-C Unavailable Unavailabl e Encounter Details Date Type Department Care Team Description 11/12/2017 [facility] Lisa Lopez LP Documentation Services [address] [phone] Social History Tobacco Use Types Packs/Day [...] Date Gina Bautista PCP - General Physician Legal Investigator 5 09/03/21 Gina Key, PCP - Assigned PCP 01/12/15 05/11/18 [facility] NO INFO AVAILABLE 01/23/2022 Gina Bautista, Physician Legal Investigator 01/31/15 Gina Key, Assigned PCP 01/12/15 [place] NO INFO AVAILABLE 01/23/2022 documented as of this encounter
--- OUTSIDE RECORDS SUMMARY | 2022-02-10 18:36 | XMS_ITS | Encounter Summary ---
:1985 Author Organization [facility] Address [address] [place] [address]. [place] [address] Care Team Providers Name Role Phone Gina Bautista PA-C Primary Care Provider Gina Kee PA-C Unavailable Unavailabl Gina Marrero PA-C Unavailable UnavailGina Hanna PA-C Unavailable Unavailabl e Encounter Details Date Type Department Care Team Description 05/08/2017 Office Visit [facility] Lisa Lopez LP Anxiety (Primary Dx) Services [address] [phone] Social History Tobacco Use Types Packs/Day [...] her ex spouse. At work, has received [employer] and a perk. But has lots of [...] plan. Lisa Lopez LP February 19, 2017 GAME OPERATOR documented in this encounter Plan of Treatment Not on filedocumented as of this encounter Visit Diagnoses Diagnosis Anxiety - Primary Anxiety state, unspecified documented in this encounter Additional Health Concerns Assessment Noted Time PHQ-9 Depression Total Score: 10 05/09/2017 8:01 AM CS T documented as of this encounter Care Teams Lehr Tender Relationship Specialty Start Date End Date Gina Bautista, PCP - General Physician Top Stitcher 5 09/03/21 Gina eKy, PCP - Assigned PCP 01/12/15 05/11/18 [place] NO INFO AVAILABLE 01/23/2022 Gina Bautista, Physician Top Stitcher 01/31/15 Gina Key, Assigned PCP 01/12/15 [place] NO INFO AVAILABLE 01/23/2022 documented as of this encounter
--- OUTSIDE RECORDS SUMMARY | 2022-02-10 18:36 | XMS_ITS | Encounter Summary ---
:1985 Author Organization [facility] Address [address] [place] [address]. [place] [address] Care Team Providers Name Role Phone Gina Bautista PA-C Primary Care Provider Gina Kee PA-C Unavailable Unavailabl Gina Marrero PA-C Unavailable UnavailGina Hanna PA-C Unavailable Unavailabl e Encounter Details Date Type Department Care Team Description 05/22/2017 Office Visit [facility] Lisa Lopez LP Anxiety (Primary Dx) Services [address] [phone] Social History Tobacco Use Types Packs/Day [...] documented as of this encounter Care Teams Char Dust Cleaner And Salvager Relationship Specialty Start Date End Date Gina Bautista PCP - General Physician Bullet Swaging Machine Operator 5 09/03/21 Gina Key PCP - Assigned PCP 01/12/15 05/11/18 [place] NO INFO AVAILABLE 01/23/2022 Gina Bautista, Physician Bullet Swaging Machine Operator 01/31/15 Gina Key, Assigned PCP 01/12/15 [place] NO INFO AVAILABLE 01/23/2022 documented as of this encounter
--- OUTSIDE RECORDS SUMMARY | 2022-02-10 18:36 | XMS_ITS | Encounter Summary ---
:1985 Author Organization [facility] Address [address] [place] [address] Care Team Providers Name Role Phone Gina Bautista PA-C Primary Care Provider Gina Kee PA-C Unavailable Unavailabl e Gina Bautista PA-C Unavailable Unavailabl Gina Marrero PA-C Unavailable Unavailabl e Reason for Visit Reason Onset Date Comments Refill Request 04/14/2017 Encounter Details Date Type Department Care Team Description 04/14/[address] [facility] Lyle Bautista Refill Request Jigna Vance PA-C [id number] [address] AVENCristiano E NO INFO AVAILABLE MORAIMA Benito [phone] 01/23/2022 Social History Tobacco Use Types Packs/Day [...] in 6-8 weeks. Panchito Gandhi CMA (AAMA) LOGY COORDINATOR Telephone Encounter - Gina Bautista PA-C - 04/14/2017 12:48 PM ONCOLOGY COORDINATOR Lab orders futured and rx sent to pharmacy. Please notify patient should schedule lab only visit in 6-8 weeks, will check TSH and Vit D. 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 - Primary Vitamin D deficiency Unspecified vitamin D deficiency documented in this encounter Additional Health Concerns Assessment Noted Time PHQ-9 Depression Total Score: 9 02/19/2017 2:07 PM ONCOLOGY COORDINATOR documented as of this encounter Care Teams Clinical Engineering Director Relationship Specialty Start Date End Date Gina Bautista PCP - General Physician Survey Research Analyst 5 09/03/21 Gina Key, PCP - Assigned PCP 01/12/15 05/11/18 [facility] NO INFO AVAILABLE 01/23/2022 Gina Bautista, Physician Survey Research Analyst 01/31/15 Gina Key, Assigned PCP 01/12/15 [facility] NO INFO AVAILABLE 01/23/2022 documented as of this encounter
--- OUTSIDE RECORDS SUMMARY | 2022-02-10 18:37 | XMS_ITS | Encounter Summary ---
:1985 Author Organization [place] Address [address] [place] [address] Care Team Providers Name Role Phone Unavailable Primary Care Provider Unavailable Encounter Details Date Type Department Care Team Description 05/23/2005 Emergency room [facility] JED RAMIREZ [address] [place] [address] (Wo rk) Social History Tobacco Use Types Packs/Day Years Used Date Smoking Tobacco: Never Assessed Sex Assigned at Date Recorded Not on file documented as of this encounter Progress Notes Interface, Biometrician - 05/24/2005 10:20 PM OIL PLANT OPERATOR FINAL CHIEF COMPLAINT: Left lower quadrant pain. [...] home. Tylenol No. 3 for discomfort, Motrin [id number]. Follow up with primary care physician in 3-5 days, clear liquids x8 hours and advance diet as tolerated. Return to emergency department if symptoms get worse. Electronically signed on 05/24/2005 22:19 by GLORY KRAFT MD MT: [id number] Name: CARLEY CAHN MRN: -[id number] Account: [id number] : 1985 Visit Date: 05/23/2005 Document: [id number] cc: [facility] PLANT OPERATOR Interface, Biometrician - 05/24/2005 3:26 PM OIL PLANT OPERATOR PRELIMINARY CHIEF COMPLAINT: Left lower quadrant pain. [...] home. Tylenol No. 3 for discomfort, Motrin [id number]. Follow up with primary care physician in 3-5 days, clear liquids x8 hours and advance diet as tolerated. Return to emergency department if symptoms get worse. GLORY KRAFT MD MT: [id number]#[id number] Name: CARLEY CHAN Account: [id number] : 1985 Visit Date: 05/23/2005 Document: [id number] cc: [facility] PLANT OPERATOR documented in this encounter Plan of Treatment Not on filedocumented as of this encounter Visit Diagnoses Not on filedocumented in this encounter
--- OUTSIDE RECORDS SUMMARY | 2022-02-10 18:37 | XMS_ITS | Encounter Summary ---
:1985 Author Organization [place] [facility] Address [address] [place] [address] Care Team Providers Name Role Phone Unavailable Primary Care Provider Unavailable Encounter Details Date Type Department Care Team Description 05/23/2005 Results Only [facility] Results EMERGENCY [facility] [address] [place] [address] (Wo rk) Social History Tobacco Use Types Packs/Day Years Used Date Smoking Tobacco: Never Assessed Sex Assigned at Date Recorded Not on file documented as of this encounter Plan of Treatment Not on filedocumented as of this encounter Procedures Procedure Name Priority Date/Time Associated Diagnosis Comme [facility] US PELVIC Routine 05/23/2005 10:02 AM Results for this NON-OB, COMPLETE LICENSED FUNERAL DIRECTOR AND EMBALMER procedure a re in the results section. documented in this encounter Results SONO PELVIS COMPLETE (05/23/2005 10:02 AM LICENSED FUNERAL DIRECTOR AND EMBALMER) Anatomical Region Laterality Modality Other Specimen (Source) Anatomical Collection Method Collection Time Re ceived Time Location / / Volume Laterality 05/23/2005 10:02 AM LICENSED FUNERAL DIRECTOR AND EMBALMER Impressions 05/26/2005 10:39 AM LICENSED FUNERAL DIRECTOR AND EMBALMER PELVIC ULTRASOUND WITH TRANSVAGINAL - ?? TECHNIQUE: With transvaginal imaging to better evaluate the adnexa. ?? FINDINGS: Normal endometrium of 5 mm. No rmal ovaries. No free fluid seen. The exam is otherwise unremarkable . [facility] SPECIAL IMAGING STUDIES documented in this encounter Visit Diagnoses Not on filedocumented in this encounter
--- OUTSIDE RECORDS SUMMARY | 2022-02-10 18:37 | XMS_ITS | Encounter Summary ---
:1985 Author Organization [facility] Address [address] [place] [address]. [place] [address] Care Team Providers Name Role Phone Unavailable Primary Care Provider Unavailable Encounter Details Date Type Department Care Team Description 05/23/2005 Historic Results INTERFACED REPORT Aleksandra Carrizales MD [address] [phone] (Wo rk) Social History Tobacco Use Types Packs/Day Years Used Date Smoking Tobacco: Never Assessed Sex Assigned at Date Recorded Not on file documented as of this encounter Plan of Treatment Not on filedocumented as of this encounter Procedures Procedure Name Priority Date/Time Associated Comments Diagnosis WET PREPARATION STAT 05/23/2005 9:45 AM Result s for this COMMUNITY SERVICES MANAGER procedure are i n the results section. NEISSERIA GONORRHOEAE STAT 05/23/2005 9:45 AM Results for this PCR COMMUNITY SERVICES MANAGER procedure are i n the results section. CHLAMYDIA TRACHOMATIS STAT 05/23/2005 9:45 AM Results for this PCR COMMUNITY SERVICES MANAGER procedure are i n the results section. HCG QUALITATIVE URINE STAT 05/23/2005 9:20 AM Results for this COMMUNITY SERVICES MANAGER procedure are i n the results section. ROUTINE UA WITH STAT 05/23/2005 9:20 AM Result s for this MICROSCOPIC COMMUNITY SERVICES MANAGER procedure are i n the results section. HEMOGRAM DIFFERENTIAL STAT 05/23/2005 7:35 AM Results for this AND PLATELET COMMUNITY SERVICES MANAGER procedure are i n the results section. BASIC METABOLIC PANEL STAT 05/23/2005 7:35 AM Results for this COMMUNITY SERVICES MANAGER procedure are i n the results section. documented in this encounter Results Chlamydia trachomatis PCR (05/23/2005 9:45 AM COMMUNITY SERVICES MANAGER) Component Value Ref Test Analysis Performed At [facility] Method Time Signature Specimen Cervical MISYS Description Chlamydia Negative for C. MISYS Trachomatis PCR trachomatis rRNA by copywriting intern mediated amplification. Comment: A negative result by copywriting intern medi ated amplification does not preclude the presence of C. trachomatis infection be cause results are dependent on proper and adequate collection, absence of inh ibitors, and sufficient rRNA to be detected. Specimen Anatomical Collection Method Collection Time Receive d Time (Source) Location / / Volume Laterality 05/23/2005 9:45 AM 6 COMMUNITY SERVICES MANAGER 10:02 AM COMMUNITY SERVICES MANAGER [facility] - MICRO GENERAL ORDERABL ES Performing Organization Address City/State/ZIP Code Phon e Number MISYS Neisseria gonorrhoeae PCR (05/23/2005 9:45 AM COMMUNITY SERVICES MANAGER) [facility] Method Time Signature Specimen Cervical MISYS Descrip N Gonorrhea Negative for N. MISYS PCR gonorrhoeae rRNA by copywriting intern mediated amplification. Comment: A negative result by copywriting intern medi ated amplification does not preclude the presence of N. gonorrhoeae infection be cause results are dependent on proper and adequate collection, absence of inh ibitors, and sufficient rRNA to be detected. Specimen Anatomical Collection Method Collection Time Receive d Time (Source) Location / / Volume Laterality 05/23/2005 9:45 AM 6 COMMUNITY SERVICES MANAGER 10:02 AM COMMUNITY SERVICES MANAGER Pediatric[facility] - MICRO GENERAL ORDERABL ES Performing Organization Address City/[facility]/ZIP Code Phon e Number MISYS Wet prep (05/23/2005 9:45 AM COMMUNITY SERVICES MANAGER) [facility] Method Time Signature Specimen Vagina MISYS Description Micro Report FINAL MISYS Status [id number] Wet Prep Few PMN'S MISYS seen Comment: No Trichomonas seen No yeast seen No clue cells seen Specimen Anatomical Collection Method Collection Time Receive d Time (Source) Location / / Volume Laterality 05/23/2005 9:45 AM 6 COMMUNITY SERVICES MANAGER 10:02 AM COMMUNITY SERVICES MANAGER [facility] - MICRO GENERAL ORDERABL ES Performing Organization Address City/State/ZIP Code Phon e Number MISYS (ABNORMAL) Routine UA with microscopic (05/23/2005 9:20 AM COMMUNITY SERVICES MANAGER) [facility] Method Time Signature Source Midstream MISYS Urine Color Urine Yellow MISYS Appearance Urine Clear MISYS Glucose Urine Negative NEG mg/dL MISYS Bilirubin Urine Negative NEG MISYS Ketones Urine Negative NEG mg/dL MISYS Specific [place] 1.016 1.003 - MISYS Urine 1.035 Blood [...] Volume Laterality 05/23/2005 9:20 AM 6 7:48 COMMUNITY SERVICES MANAGER AM COMMUNITY SERVICES MANAGER [facility] - URINE ORDERABLES Performing Organization Address City/State/ZIP Code Phon e Number MISYS HCG qualitative urine (05/23/2005 9:20 AM COMMUNITY SERVICES MANAGER) P athologist Signature HCG Qual Urine Negative NEG MISYS Specimen Anatomical Collection Method Collection Time Receive d Time (Source) Location / / Volume Laterality 05/23/2005 9:20 AM 6 7:48 COMMUNITY SERVICES MANAGER AM COMMUNITY SERVICES MANAGER [facility] - URINE ORDERABLES Performing Organization Address City/[facility] Code Phon e Number MISYS (ABNORMAL) Hemogram differential and platelet (05/23/2005 7:35 AM COMMUNITY SERVICES MANAGER) [facility] Method Time Signature MCV 84 77 [...] Volume Laterality 05/23/2005 7:35 AM 6 7:48 COMMUNITY SERVICES MANAGER AM COMMUNITY SERVICES MANAGER [facility] - BLOOD ORDERABLES Performing Organization Address City/State/[facility] Code Phon e Number MISYS Basic metabolic panel (05/23/2005 7:35 AM COMMUNITY SERVICES MANAGER) P athologist Signature Sodium 141 133 [...] Volume Laterality 05/23/2005 7:35 AM 6 7:48 COMMUNITY SERVICES MANAGER AM COMMUNITY SERVICES MANAGER [facility] - BLOOD ORDERABLES Performing Organization Address City/State/ZIP Code Phon e Number MISYS documented in this encounter Visit Diagnoses Not on filedocumented in this encounter
--- OUTSIDE RECORDS SUMMARY | 2022-02-10 18:37 | XMS_ITS | Encounter Summary ---
:1985 Author Organization [facility] Address [address] [place] [address]. [place] [address] Care Team Providers Name Role Phone Unavailable Primary Care Provider Unavailable Encounter Details Date Type Department Care Team Description 07/21/2004 Historic Site Medical Director INTERFACED REPORT Ilana Levy Social History Tobacco Use Types Packs/Day Years Used Date Smoking Tobacco: Never Assessed Sex Assigned at Date Recorded Not on file documented as of this encounter Progress Notes Interface, Site Medical Director - 02/12/2011 3:18 AM BOILER HOUSE SUPERVISOR : 89 CHIEF COMPLAINT: Ankle and knee [...] EPIDEMIOLOGIC HISTORY: Patient attends school. They visited [place] in May 2004. PHYSICAL EXAMINATION: VITAL SIGNS: [...] appointment. [id number] KELLIE LEVY MD MT: Document: [id number] CC: KELLIE LEVY MD [place], [place] Name: MR#: CARLEY CHAN -23 EMERGENCY ROOM ENCOUNTER Page 2 of 2 LCN: MARY JANE DSC: 07/21/2004 [place], [place] Name: MR#: CARLEY CHAN -23 : Admit Date: Account #: 1985 07/21/2004 [id number] Doctor: KELLIE LEVY MD EMERGENCY ROOM ENCOUNTER Page 1 of 2 ER HOUSE SUPERVISOR documented in this encounter Plan of Treatment Not on filedocumented as of this encounter Visit Diagnoses Not on filedocumented in this encounter
== END 2022-02-10 18:50 | disposition home or self-care (01) ==
PROVIDERS: Emergency Provider Emergency Medicine Emergency Medical Services; PCP Internal Medicine
DX: O98.513 Other viral diseases complicating pregnancy, third trimester (principal); J10.1 Influenza due to other identified influenza virus with other respiratory manifestations; Z3A.33 33 weeks gestation of pregnancy
CPT/HCPCS: 87502; 87634; 87635; 99283; 99284

== ENCOUNTER 2022-02-18 10:59 | Outpatient (CLI) | payer BC, SELFPAY ==
--- OUTSIDE RECORDS SUMMARY | 2022-02-18 11:18 | XMS_ITS | Encounter Summary ---
:1985 Author Organization [place] Address [address] [place] [address]. [place] [address] Care Team Providers Name Role Phone Gina Bautista PA-C Primary Care Provider Unavaila ble Gina Bautista PA-C Unavailable Unavailabl Vidya Romero APRN, CNM Unavailable [phone] Clinic, [facility] Unavailable Encounter Details Date Type Department Care Team Description 2021 Medical Correspondence [facility] Scan, ENDOCRINOLOGY Health Info Mgmt Non-Provider REFERRAL [address] [address] Social History Tobacco Use Types [...] documented as of this encounter Care Teams Tank Washer Relationship Specialty Start Date End Date Gina Bautista, EVA - General Physician Music Autographer 5 09/03/21 Gina Key, Physician Music Autographer 01/31/15 Vidya Pollack APRN CNM Job Compositor 08/21/[address] [place] [address] [facility], [facility] 08/21/[address] [address] documented as of this encounter
--- OUTSIDE RECORDS SUMMARY | 2022-02-18 11:18 | XMS_ITS | Encounter Summary ---
:1985 Author Organization [facility] Address [address] [place] [address] Care Team Providers Name Role Phone Gina Bautista PA-C Unavailable Unavailabl e Vidya Espinal APRN CNKianna Unavailable [phone] [facility], [facility] Unavailable Marissa Jean MD Unavailable Violette Bolden [facility] Primary Care Provider Reason for Visit Reason Onset Date Comments Appointment 09/04/2021 Encounter Details Date Type Department Care Team Description 09/04/2021 Telephone [facility] Natalya Jean, Appointment Jhonatan [facility]O [address] var[address]havin [address] [facility] [address] [place] [address] [place] [address] [phone] Social History Tobacco Use Types Packs/Day Years Used Date Smoking Tobacco: Never Smokeless Tobacco: Never Alcohol Use Standard Drinks/Week Comments Yes 0 (1 standard drink = 0.6 oz pure alcoho l) Sex Assigned at Date Recorded Not on file documented as of this encounter Miscellaneous Notes Telephone Encounter - Bhavana Biswas - 09/04/2021 12:21 PM CDT [facility], relayed message to trimmer operator she will relay this message to the team/person who called. Telephone Encounter - Marissa Jean MD - 09/04/2021 10:29 AM CDT NEW PT TO ME. I am very sorry- but at this time schedule is booked out and I do not have any sooner appointments. Patient my wish to request endo consult at another locations or [facility] Endocrinology. Let me know if you have any questions. Thank you. Marissa Jean MD Telephone Encounter - Karyn Iniguez RN - 09/04/2021 9:15 AM CDT Please advise as pt is . Telephone Encounter - Kendall Burden - 09/04/2021 9:08 AM CDT [facility] Call Center Phone Message May a detailed message be left on voicemail: yes Reason for Call: Appointment Intake Referring Provider Name: Vidya Espinal Diagnosis and/or Symptoms: Hypothyroidism and Per referral urgency 3-5 days. [facility] wondering if pt can be seen [...] documented as of this encounter Care Teams Marble Worker Relationship Specialty Start Date End Date Violette Bolden CNM PCP - General 09/04/21 [facility] [address] [place] [address] Gina Bautista, Physician Computing Tutor 01/31/15 Vidya Pollack APRN CNM Squash Centre Manager 08/21/21 [facility] [address] [facility] [address] [place] [address] [facility], [facility] 08/21/[address] [address] Marissa Jean MD Hospitalist Endocrinology, 09/04/21 [address] MANASA Diabetes, and [address] [place] [address] documented as of this encounter
--- OUTSIDE RECORDS SUMMARY | 2022-02-18 11:18 | XMS_ITS | Clinical Summary ---
:1985 Author Organization [employer] [place] [address] Care Team Providers Name Role Phone Pcp, [...] = 9 in March; Hgb 10.3 at [facility] before transfer History of delivery 02/02/2018 High-risk [...] if not delivered. 7. contractions with mild telecommunications equipment installer al cervical change, admitted [facility] and received steroids x 2. It's a [...] Date Smoking Tobacco: Never Smokeless Tobacco: Never Tobacco Cessation: Counseling Given: Yes Alcohol Use [...] more drinks on one Never 08/09/2018 occasion? Sex Assigned at Date Recorded Not on file Obstetrics History Para Term AB IAB SAB Ectopic Multiple Living Live Births 9 3 1 2 6 6 3 3 Date Outcome GA Total Labor/2nd/3rd Weight Sex Delivery Anes PTL Tiffanie A 1 A5 Name Clin Labor 12/02 36w 2.72 kg M Vag Lary Ell io 0d (6 lb) ng tt 08/04 34w M Vag Y Lary Abner /2013 0d ng Comments: PTL 23wks and put on bed rest, was on progesterone during 2016 SAB SPONTANEOUS 2017 SAB 2017 SAB 06/23/2018 Term 38w3d [...] 01/16/2023 01/17/2020, 01/17/2020, 12/19/2016 [facility] Tetanus booster 04/05/2028 04/05/2018, 03/09/2012 HIV for age 15-65 Completed 11/03/2017 Tdap Completed 04/05/2018, 03/09/2012 Results Not on filefrom Last 3 Months Advance Directives Latest Code Status on File Code Status Date Activated Date Inactivated Comments Full Code 05/25/2018 11:18 PM 05/28/2018 2:46 PM Code Status History Code Status Date Activated Date Inactivated Comments Full Code 05/03/2018 7:52 PM 05/04/2018 5:01 PM Full Code 07/04/2013 11:25 AM 07/04/2013 4:53 PM Care Teams Lead Data Entry Operator Relationship Specialty Start Date End Date Pcp, No PCP - General 01/15/19 .
--- OUTSIDE RECORDS SUMMARY | 2022-02-18 11:18 | XMS_ITS | Clinical Summary ---
:1985 Author Organization [place] Address [address] [place] [address] Care Team Providers Name Role Phone Gina Bautista PA-C Unavailable Unavailabl Vidya Romero APRN CNKianna Unavailable [phone] [facility] Unavailable Marissa Jean MD Unavailable Violette [...] symptoms greater than 10 days fluticasone (FLONASE) [place] 1-2 sprays 1 Bottle 11 02/22/2017 Active 50 MCG/ACT into both nostrils sprayIndications: daily Acute sinusitis with symptoms greater than 10 days vitamin D Take 1 capsule 12 capsule 0 04/14/2017 Act [place] (ERGOCALCIFEROL) (50,000 Units) [place] [address] UNIT mouth once a week capsuleIndications: Lab [...] Comments Blood Pressure 108/62 02/22/2017 11:59 AM BELL TIER Pulse 61 02/22/2017 11:59 AM BELL TIER Temperature 36.7 ??C (98.1 ??F) 02/22/2017 11:59 AM BELL TIER Respiratory Rate 15 12/19/2016 2:53 PM CDT Oxygen Saturation 100% 02/22/2017 11:59 AM BELL TIER Inhaled Oxygen Concentration - - Weight 79.3 kg (174 lb 12.8 oz) 01/27/2017 1:05 PM BELL TIER Height 167.6 cm (5' 6) 12/19/2016 2:53 [...] e / Group Dates [place] [id number] 2021-Pres [phone] [address] Indemnity [phone] [place] [address] [facility] [id number] 2016-Pres [address] PPO BEHAVIORAL ent [address] [place] [address] ([place]) [place] [address] FlorencioCarley henderson [facility] 1985 [facility] ([place]) [place] [address] Care Teams Seafood Farmer Relationship Specialty Start Date End Date Violette Bolden CNM PCP - General 09/04/21 [facility] [address] [place] [address] Gina Bautista, Physician Champagne Maker 01/31/15 Vidya Pollack APRN CNM Supervisor Capacitor Processing 08/21/[address] [place] [id number] [facility], [facility] 08/21/[address] [address] Marissa Jean MD Hospitalist Endocrinology, 09/04/21 [address] Diabetes, and [address] [place] [address]
--- OUTSIDE RECORDS SUMMARY | 2022-02-18 11:19 | XMS_ITS | Encounter Summary ---
:1985 Author Organization [facility] Address [address] [place] [address] Care Team Providers Name Role Phone Gina Bautista PA-C Primary Care Provider UnavailGina Joyner PA-C Unavailable Unavailabl e Gina Bautista PA-C Unavailable Unavailabl Gina Marrero PA-C Unavailable Unavailabl e Encounter Details Date Type Department Care Team Description 06/11/2017 Hospital Pathology [facility] Results MD Brynn [address] [id number] (Wo rk) Social History Tobacco Use Types [...] Name Priority Date/Time Associated Diagnosis Comme [facility] SURGICAL PATHOLOGY Routine 06/11/2017 11:30 AM Re sults for this EXAM CDT procedure are i n the results section. documented in this encounter Results Surgical pathology exam (06/11/2017 11:30 AM CDT) Component Value Ref Test Analysis Performed At [facility] Method Time Signature Copath Report Patient Name: CARLEY JO COPATH MR#: [id number] Specimen #: [id number] Collected: 06/11/2017 Received: 06/11/2017 Reported: 06/12/2017 14:08 [...] par ts or translucent vesicles are identified. Business Investor sections are submitted in 2 blocks. ??The rem ainder of the specimen is handled per [facility] POC protocol. (Dictated by: ASHLEY Martinez 06/11/2017 03:17 PM) MICROSCOPIC: Microscopic examination is performed. CPT Codes: A: 93347-DP2, [facility] TESTING LAB LOCATION: [facility] [address] [place] [address] ??[phone] COLLECTION SITE: Client: [facility] / [...] documented as of this encounter Care Teams Stack Matcher Relationship Specialty Start Date End Date Gina Bautista, EVA - General Physician Automotive Refinish Technician 5 09/03/21 Gina Key, PCP - Assigned PCP 01/12/15 05/11/18 PA-C NO INFO AVAILABLE 01/23/2022 Gina Bautista, Physician Automotive Refinish Technician 01/31/15 [place] Gina Bautista, Assigned PCP 01/12/15 PA-C NO INFO AVAILABLE 01/23/2022 documented as of this encounter
--- OUTSIDE RECORDS SUMMARY | 2022-02-18 11:19 | XMS_ITS | Encounter Summary ---
:1985 Author Organization [place] Address [address] [place] [address]. [place] [address] Care Team Providers Name Role Phone Gina Bautista PA-C Primary Care Provider Gina Kee PA-C Unavailable Unavailabl Gina Marrero PA-C Unavailable UnavailGina Hanna PA-C Unavailable Unavailabl e Encounter Details Date Type Department Care Team Description 05/08/2017 Office Visit [facility] Lisa Lopez LP Anxiety (Primary Dx) Services [address] [address] Social History Tobacco Use Types Packs/Day [...] her ex spouse. At work, has received [employer] and a perk. But has lots [...] plan. Lisa Lopez LP February 19, 2017 YE GUNNER documented in this encounter Plan of Treatment Not on filedocumented as of this encounter Visit Diagnoses Diagnosis Anxiety - Primary Anxiety state, unspecified documented in this encounter Additional Health Concerns Assessment Noted Time PHQ-9 Depression Total Score: 10 05/09/2017 8:01 AM CS T documented as of this encounter Care Teams Computer Engineering Technologist Relationship Specialty Start Date End Date Gina Bautista, PCP - General Physician Engineering Instructor 5 09/03/21 Gina Key, PCP - Assigned PCP 01/12/15 05/11/18 [facility] NO INFO AVAILABLE 01/23/2022 Gina Bautista, Physician Engineering Instructor 01/31/15 Gina Key, Assigned PCP 01/12/15 [facility] NO INFO AVAILABLE 01/23/2022 documented as of this encounter
--- OUTSIDE RECORDS SUMMARY | 2022-02-18 11:19 | XMS_ITS | Encounter Summary ---
:1985 Author Organization [place] Address [address] [place] [address] Care Team Providers Name Role Phone Gina Bautista PA-C Primary Care Provider Gina Kee PA-C Unavailable Unavailabl e Gina Bautista PA-C Unavailable Unavailabl Gina Marrero PA-C Unavailable Unavailabl e Reason for Visit Reason Onset Date Comments Refill Request 04/14/2017 Encounter Details Date Type Department Care Team Description 04/14/2017 Telephone [facility] Lyle Bautista Refill Request Jigna Vance PA-C [id number] NO INFO AVAILABLE [place] [phone] 01/23/2022 Social History Tobacco Use Types Packs/Day [...] in 6-8 weeks. Panchito Gandhi CMA (AAMA) DISTRIBUTOR Telephone Encounter - Gina Bautista PA-C - 04/14/2017 12:48 PM CAR DISTRIBUTOR Lab orders futured and rx sent to pharmacy. Please notify patient should schedule lab only visit in 6-8 weeks, will check TSH and Vit D. 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 Vitamin D deficiency Unspecified vitamin D deficiency documented in this encounter Additional Health Concerns Assessment Noted Time PHQ-9 Depression Total Score: 9 02/19/2017 2:07 PM CAR DISTRIBUTOR documented as of this encounter Care Teams Weight Tester Relationship Specialty Start Date End Date Gina Bautista PCP - General Physician Oracle Obiee Developer 5 09/03/21 Gina Key, PCP - Assigned PCP 01/12/15 05/11/18 [place] NO INFO AVAILABLE 01/23/2022 Gina Bautista, Physician Oracle Obiee Developer 01/31/15 Gina Key, Assigned PCP 01/12/15 [place] NO INFO AVAILABLE 01/23/2022 documented as of this encounter
--- OUTSIDE RECORDS SUMMARY | 2022-02-18 11:19 | XMS_ITS | Encounter Summary ---
:1985 Author Organization [place] Address [address] [place] [address] Care Team Providers Name Role Phone Gina Bautista PA-C Primary Care Provider Gina Kee PA-C Unavailable UnavailGina Hanna PA-C Unavailable UnavailGina Hanna PA-C Unavailable Unavailabl e Encounter Details Date Type Department Care Team Description 04/27/2015 Telephone [facility] Lyle Bautista [place] PA-C [address] NO INFO AVAILABLE [place] [phone] 01/23/2022 Social History Tobacco Use Types Packs/Day Years Used Date Smoking Tobacco: Never Smokeless Tobacco: Never Alcohol Use Standard Drinks/Week Comments Yes 0 (1 standard drink = 0.6 oz pure alcoho l) Sex Assigned at Date Recorded Not on file documented as of this encounter Miscellaneous Notes Telephone Encounter - Gina Bautista PA-C - 04/27/2015 8:25 AM TILE LAYER SUPERVISOR Spoke with patient regarding labs. Will restart Synthroid 75mcg daily, recheck in 6-8 weeks Discussed low hemoglobin, will have her get labs today and then start iron replacement BID, recheck in 6-8 weeks as well. Discussed remained of labs. Gina Bautista PA-C LAYER SUPERVISOR Telephone Encounter - Monica Tony CMA - 04/27/2015 8:20 AM CST Per patient, placed letter at front desk specialist for patient pharmacy picking tech Marianne Chavo CAMPOS (AACA) 04/27/2015 8:21 AM LAYER SUPERVISOR Telephone Encounter - Gina Bautista PA-C - 04/27/2015 8:13 AM TILE LAYER SUPERVISOR Left Vm for patient, would like to discuss labs results. Gina Bautista PA-C LAYER SUPERVISOR documented in this encounter Plan of Treatment Not on filedocumented as of this encounter Visit Diagnoses Not on filedocumented in this encounter Additional Health Concerns Assessment Noted Time PHQ-9 Depression Total Score: 16 04/26/2015 8:54 AM CS T documented as of this encounter Care Teams Rehabilitator Relationship Specialty Start Date End Date Gina Bautista PCP - General Physician Floor Covering Printer 5 09/03/21 Gina Key PCP - Assigned PCP 01/12/15 05/11/18 [place] NO INFO AVAILABLE 01/23/2022 Gina Bautista Physician Floor Covering Printer 01/31/15 Gina Key, Assigned PCP 01/12/15 [place] NO INFO AVAILABLE 01/23/2022 documented as of this encounter
--- OUTSIDE RECORDS SUMMARY | 2022-02-18 11:19 | XMS_ITS | Encounter Summary ---
:1985 Author Organization [place] Address [address] [place] [address] Care Team Providers Name Role Phone Gina Bautista PA-C Primary Care Provider Jaynaa ble Gina Bautista PA-C Unavailable Unavailabl e Gina Bautista PA-C Unavailable Unavailabl e Gina Bautista PA-C Unavailable Unavailabl e Reason for Visit Reason Comments Medication Refill Encounter Details Date Type Department Care Team Description 03/22/2017 Refill [facility] Lyle Bautista Medication Refill Jigna Vance PA-C [address] NO INFO AVAILABLE [place] [phone] 01/23/2022 Social History Tobacco Use Types Packs/Day Years Used Date Smoking Tobacco: Never Smokeless Tobacco: Never Alcohol Use Standard Drinks/Week Comments Yes 0 (1 standard drink = 0.6 oz pure alcoho l) Sex Assigned at Date Recorded Not on file documented as of this encounter Miscellaneous Notes Telephone Encounter - Violette Archer - 04/06/2017 3:23 PM CST Appointment scheduled MAKER Telephone Encounter - Panchito Gandhi - 04/03/2017 10:43 AM CST 2nd attempt, LM to call back. Needs non-fasting lab only apt. Panchito Gandhi CMA (AAMA) MAKER Telephone Encounter - Donya Damon - 03/26/2017 11:50 AM CST 1st attempt LVM to call back to make an appt MAKER Telephone Encounter - Yvette Negrete RN - 03/25/2017 12:18 PM GORE MAKER Medication is being filled for 1 time refill only due to: Patient needs labs recheck on Vitamin D level. Call to schedule lab only appointment, future order previously placed. Kim Negrete RN MAKER Telephone Encounter - Kaye Gr - 03/23/2017 9:36 AM CST vitamin D (ERGOCALCIFEROL) [address]2574 UNIT capsule Last Written Prescription Date: 12/22/2016 Last Fill Quantity: 12, # refills: 0 Last Office Visit: 02/22/2017 Future Office visit: Next 5 appointments (look out 90 days) Apr 24, 2017 2:00 PM GORE MAKER Return Visit with Lisa Lopez LP [facility] ([facility]) [address] [facility] [address] May 08, 2017 2:00 PM GORE MAKER Return Visit with Lisa Lopez LP [facility]) [address] [facility] [address] May 22, 2017 2:00 PM CDT Return Visit with Lisa Lopez [facility] ([facility]) [address] [place] [phone] Routing refill request to provider for review/approval because: Drug not on the [facility], [facility] or [facility] refill protocol or controlled substance MAKER documented in this encounter Plan of Treatment Not on filedocumented as of this encounter Visit Diagnoses Diagnosis Vitamin D deficiency Unspecified vitamin D deficiency documented in this encounter Additional Health Concerns Assessment Noted Time PHQ-9 Depression Total Score: 9 02/19/2017 2:07 PM GORE MAKER documented as of this encounter Care Teams Gleason Operator Relationship Specialty Start Date End Date Gina Bautista, PCP - General Physician Sap Business Intelligence Consultant 5 09/03/21 PA-C Gina Bautista, PCP - Assigned PCP 01/12/15 05/11/18 PA-C NO INFO AVAILABLE 01/23/2022 Gina Bautista, Physician Sap Business Intelligence Consultant 01/31/15 PALiuC Gina Bautista, Assigned PCP 01/12/15 PA-C NO INFO AVAILABLE 01/23/2022 documented as of this encounter
--- OUTSIDE RECORDS SUMMARY | 2022-02-18 11:19 | XMS_ITS | Encounter Summary ---
:1985 Author Organization [place] Address [address] [place] [address] Care Team Providers Name Role Phone Gina Bautista PA-C Primary Care Provider Oscar ble Gina Bautista PA-C Unavailable Unavailabl e Michele, Gina Vance PA-C Unavailable Unavailabl e Gina Bautista PA-C Unavailable Unavailabl e Reason for Visit Reason Onset Date Comments Outreach 05/27/2017 Encounter Details Date Type Department Care Team Description 05/27/2017 Telephone [facility] Lyle Bautista, Outreach Jigna BERNAL [address] NO INFO AVAILABLE [place] Ben[place] [phone] 01/23/2022 Social History Tobacco Use Types Packs/Day [...] Panchito Gandhi sent at 04/15/2017 4:53 PM OFFICE MACHINE EMBOSSOGRAPH OPERATOR ----- Call pt to schedule lab only in next 2 weeks. Labs pended. Panchito Gandhi CMA (AAMA) documented in this encounter Plan of Treatment Not on filedocumented as of this encounter Visit Diagnoses Not on filedocumented in this encounter Additional Health Concerns Assessment Noted Time PHQ-9 Depression Total Score: 10 05/09/2017 8:01 AM CS T documented as of this encounter Care Teams Senior Genetic Counselor Relationship Specialty Start Date End Date Gina Batuista PCP - General Physician Air Bag Builder 5 09/03/21 Gina Key, PCP - Assigned PCP 01/12/15 05/11/18 [place] NO INFO AVAILABLE 01/23/2022 Gina Bautista Physician Air Bag Builder 01/31/15 Gina Key, Assigned PCP 01/12/15 [place] NO INFO AVAILABLE 01/23/2022 documented as of this encounter
--- OUTSIDE RECORDS SUMMARY | 2022-02-18 11:19 | XMS_ITS | Encounter Summary ---
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 TSH WITH FREE T4 Routine 04/10/2017 2:35 PM Hypothyroidism due to Results for this REFLEX PRODUCT INFO SPECIALIST acquired atrophy of procedur e are in thyroid the results section. T4 FREE Routine 04/10/2017 2:35 PM Vitamin D deficiency R esults for this PRODUCT INFO SPECIALIST procedure are i n the results section. documented in this encounter Results T4 free (04/10/2017 2:35 PM PRODUCT INFO SPECIALIST) athologist Signature T4 Free 0.94 0.76 - 1.46 04/12/2017 [facility] ng/dL 1:41 PM PRODUCT INFO SPECIALIST [facility] Specimen Anatomical Collection Method Collection Time Receive d Time (Source) Location / / Volume Laterality 04/10/2017 2:35 PM 8 2:36 PRODUCT INFO SPECIALIST PM PRODUCT INFO SPECIALIST Gina Bautista PA-C LAB - BLOOD ORDERABLES Performing Organization Address City/[facility]/ZIP Code Phon e Number [facility] [address] [place] [phone] (ABNORMAL) TSH with free T4 reflex FUTURE 2mo (04/10/2017 2:35 PM PRODUCT INFO SPECIALIST) athologist Signature TSH 10.56 (H) 0.40 - 04/12/2017 [facility] 4.00 mU/L 1:28 PM [facility] Specimen Anatomical Collection Method Collection Time Receive d Time (Source) Location / / Volume Laterality Blood specimen 04/10/2017 2:35 PM 018 2:36 (specimen) PRODUCT INFO SPECIALIST PM PRODUCT INFO SPECIALIST Gina Bautista PA-C LAB - BLOOD ORDERABLES Performing Organization Address City/[facility]/ZIP Code Phon e Number [facility] [address] [place] [phone] (ABNORMAL) Vitamin D Deficiency (04/10/2017 2:35 PM PRODUCT INFO SPECIALIST) athologist Signature Vitamin D 13 (L) 20 - 75 04/11/2017 [facility] Deficiency ug/L 11:46 AM PRODUCT INFO SPECIALIST [facility] Comment: Season, race, dietary intake, and treatm ent affect the concentration of 92-tmmlvyt-Qmdwofl D. 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
--- OUTSIDE RECORDS SUMMARY | 2022-02-18 11:19 | XMS_ITS | Encounter Summary ---
:1985 Author Organization [place] Address [address] [place] [address] Care Team Providers Name Role Phone Gina Bautista PA-C Primary Care Provider UnavailGina Joyner PA-C Unavailable UnavailGina Hanna PA-C Unavailable UnavailGina Hanna PA-C Unavailable Unavailabl e Encounter Details Date Type Department Care Team Description 04/26/2015 Orders Only [facility] Enc ounter for routine adult physical exam with abnormal findings; [facility] Overweight; [id number] Hypothyroidism due to acquir ed [...] Encounter for Resu lts for this REFLEX SHEET HANGER routine adult procedure are in physical exam with the resul ts abnormal finding s section. Hypothyroidism due to acquired atrophy of thyroid T4 FREE Routine 04/26/2015 8:26 AM Encounter for Results for this SHEET HANGER routine adult procedure are in physical exam with the resul ts abnormal findings section. LIPID REFLEX TO DIRECT Routine 04/26/2015 8:26 AM Encounter fo r Results for this LDL PANEL SHEET HANGER routine adult procedure are in physical exam with the resul ts abnormal findings section. COMPREHENSIVE Routine 04/26/2015 8:26 AM Encounter for Results for this METABOLIC PANEL SHEET HANGER routine adult procedure a re in physical exam with the resul ts abnormal finding s section. Overweight CBC WITH PLATELETS Routine 04/26/2015 8:26 AM Encounter for Re sults for this SHEET HANGER routine adult procedure are in physical exam with the resul ts abnormal findings section. documented in this encounter Results T4 free (04/26/2015 8:26 AM SHEET HANGER) athologist Signature T4 Free 0.98 0.76 - 1.46 [facility] ng/dL [facility] Specimen Anatomical Collection Method Collection Time Receive d Time (Source) Location / / Volume Laterality 04/26/2015 8:26 AM 6 8:27 SHEET HANGER AM SHEET HANGER Gina Bautista PA-C LAB - BLOOD ORDERABLES Performing Organization Address City/State/ZIP Code Phon e Number [facility] [address] [place] [address] (ABNORMAL) CBC with platelets (04/26/2015 8:26 AM SHEET HANGER) athologist Signature WBC 4.7 4.0 - 11.0 [place] 10e9/L [facility] [place] RBC Count 4.41 3.8 - 5.2 [place] 10e12/L [facility] [place] Hemoglobin 8.4 (L) 11.7 - 15.7 [place] g/dL [facility] [place] Comment: Results confirmed by repeat mónica t Hematocrit 29.1 (L) 35.0 - 47.0 % [facility] S [place] MCV 66 (L) 78 - 100 fl [facility] [place] MCH 19.0 (L) 26.5 - 33.0 pg [facility] S [place] MCHC 28.9 (L) 31.5 - 36.5 g/dL [place] [facility] [place] Comment: Results confirmed by repeat mónica t RDW 16.7 (H) 10.0 - 15.0 % [facility] [place] Platelet Count 321 150 - 450 10e9/L [facility] [place] Specimen Anatomical Collection Method Collection Time Receive d Time (Source) Location / / Volume Laterality Blood specimen 04/26/2015 8:26 AM 02/18/2 016 8:27 (specimen) SHEET HANGER AM SHEET HANGER Gina Bautista PA-C LAB - BLOOD ORDERABLES Performing Organization Address City/[facility]/ZIP Code Phon e Number [facility] [address] [address]68 LIPID REFLEX TO DIRECT LDL PANEL (04/26/2015 8:26 AM SHEET HANGER) P athologist Signature Cholesterol 109 <200 mg/dL [facility] Triglycerides 70 <150 mg/dL [facility] S [facility] Comment: Fasting specimen HDL Cholesterol 54 >49 mg/dL [place] [facility] LDL Cholesterol Calculated 41 <100 mg/dL FA [facility] Comment: Desirable: <100 mg/dl Non HDL Cholesterol 55 <130 mg/dL [facility] Specimen Anatomical Collection Method Collection Time Receive d Time (Source) Location / / Volume Laterality Blood specimen 04/26/2015 8:26 AM 016 8:27 (specimen) SHEET HANGER AM SHEET HANGER Gina RAMIREZ-C LAB - BLOOD ORDERABLES Performing Organization Address City/[facility]/ZIP Code Phon e Number [facility] [address] [place] [phone] (ABNORMAL) TSH with free T4 reflex (04/26/2015 8:26 AM SHEET HANGER) athologist Signature TSH 7.92 (H) 0.40 - [facility] 4.00 mU/L [facility] Specimen Anatomical Collection Method Collection Time Receive d Time (Source) Location / / Volume Laterality Blood specimen 04/26/2015 8:26 AM 016 8:27 (specimen) SHEET HANGER AM SHEET HANGER Gina Pinky RAMIREZ-C LAB - BLOOD ORDERABLES Performing Organization Address City/[facility]/ZIP Code Phon e Number [facility] [address], [place] [address] (ABNORMAL) Comprehensive metabolic panel (04/26/2015 8:26 AM SHEET HANGER) [facility] gist Method Time Signature Sodium 140 133 - 144 [place] mmol/L [facility] Potassium 4.1 3.4 - 5.3 [place] mmol/L [facility] Chloride 109 94 - 109 [place] mmol/L [facility] Carbon Dioxide 23 20 - 32 [place] mmol/L [facility] Anion Gap 8 3 - 14 [place] mmol/L [facility] Glucose 87 70 - 99 [place] mg/dL [facility] Urea Nitrogen 10 7 - 30 [place] mg/dL [facility] Creatinine 0.74 0.52 - [place] 1.04 CLINICS mg/dL [facility] GFR Estimate >90 >60 [place] Non GFR Calc mL/min/1. CLINICS 7[address]2 [facility] GFR Estimate If >90 >60 [place] Black GFR Calc mL/min/1. CLIN ICS 7m2 [facility] Calcium 8.3 (L) 8.5 - [place] 10.1 [facility] mg/dL [facility] Bilirubin Total 0.5 0.2 - 1.3 [place] mg/dL [facility] Albumin 3.8 3.4 - 5.0 [place] g/dL [facility] Protein Total 7.4 6.8 - 8.8 [place] g/dL [facility] Alkaline 71 40 - 150 [place] Phosphatase U/L [facility] ALT 19 0 - 50 [place] U/L [facility] AST 14 0 - 45 [place] U/L [facility] Specimen Anatomical Collection Method Collection Time Receive d Time (Source) Location / / Volume Laterality Blood specimen 04/26/2015 8:26 AM 016 8:27 (specimen) SHEET HANGER AM SHEET HANGER Gina Bautista PA-C LAB - BLOOD ORDERABLES Performing Organization Address City/State/ZIP Code Phon e Number [facility] [address] [place] [address] documented in this encounter Visit Diagnoses Diagnosis Encounter for routine adult physical exa m with abnormal findings Overweight 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
--- OUTSIDE RECORDS SUMMARY | 2022-02-18 11:19 | XMS_ITS | Encounter Summary ---
:1985 Author Organization [place] Address [address] [place] [address]. [place] [address] Care Team Providers Name Role Phone Gina Bautista PA-C Primary Care Provider Gina Kee PA-C Unavailable Unavailabl e Gina Bautista PA-C Unavailable Unavailabl Gina Marrero PA-C Unavailable Unavailabl e Reason for Visit Mental Health Outpatient (Routine) - Closed Specialty Diagnoses / Procedures Referred By Contact Refer red To Contact Gina Bautista [facility] [place] [facility] NO INFO AVAILABLE [address] [place] [address] 01/23/2022 [place] [address] Phone: Fax: Referral ID Status Reason Start Date Expiration Date Visits Requ ested Visits Authorized [facility] Closed 01/14/2017 01/14/2018 1 52 Encounter Details Date Type Department Care Team Description 02/19/2017 Office Visit [facility] Lisa Lopez LP Anxiety (Primary Dx) Services [id number] [place] [address] [phone] Social History Tobacco Use Types Packs/Day [...] decree) Talks to relatives ( who are auto mechanic apprentice) to get concrete info. Explored TIP skills. [...] plan. Lisa Lopez LP February 19, 2017 RCOACH DRIVER documented in this encounter Plan of Treatment Not on filedocumented as of this encounter Visit Diagnoses Diagnosis Anxiety - Primary Anxiety state, unspecified documented in this encounter Additional Health Concerns Assessment Noted Time PHQ-9 Depression Total Score: 9 02/19/2017 2:07 PM MOTORCOACH DRIVER documented as of this encounter Care Teams Business System Manager Relationship Specialty Start Date End Date Gina Bautista, PCP - General Physician Remelt Pan Tank Operator 5 09/03/21 Gina Key, PCP - Assigned PCP 01/12/15 05/11/18 [place] NO INFO AVAILABLE 01/23/2022 Gina Bautista, Physician Remelt Pan Tank Operator 01/31/15 Gina Key, Assigned PCP 01/12/15 [place] NO INFO AVAILABLE 01/23/2022 documented as of this encounter
--- OUTSIDE RECORDS SUMMARY | 2022-02-18 11:19 | XMS_ITS | Encounter Summary ---
:1985 Author Organization [place] Address [address] [place] [address] Care Team Providers Name Role Phone Gina Bautista PA-C Primary Care Provider Unavaila ble Gina Bautista PA-C Unavailable Unavailabl e Encounter Details Date Type Department Care Team Description 08/06/2020 Records - [facility] CONVERSION Provider, Histor ical Social History Tobacco [...] documented as of this encounter Care Teams Homoeopath Relationship Specialty Start Date End Date Gina Bautista PA-C PCP - General Physician Linux Unix Administrator 09/03/21 Gina Bautista PA-C Physician Linux Unix Administrator documented as of this encounter
--- OUTSIDE RECORDS SUMMARY | 2022-02-18 11:19 | XMS_ITS | Encounter Summary ---
:1985 Author Organization [place] Address [address] [place] [address]. [place] [address] Care Team Providers Name Role Phone Gina Bautista PA-C Primary Care Provider Gina Kee PA-C Unavailable Unavailabl Gina Marrero PA-C Unavailable UnavailGina Hanna PA-C Unavailable Unavailabl e Encounter Details Date Type Department Care Team Description 04/24/2017 Office Visit [facility] Lisa Lopez LP Anxiety (Primary Dx) Services [address] [phone] Social History Tobacco Use Types Packs/Day [...] Lisa Lopez LP February 19, 2017 R ENERGY TECHNICIAN documented in this encounter Plan of Treatment Not on filedocumented as of this encounter Visit Diagnoses Diagnosis Anxiety - Primary Anxiety state, unspecified documented in this encounter Additional Health Concerns Assessment Noted Time PHQ-9 Depression Total Score: 10 04/25/2017 8:01 AM CS T documented as of this encounter Care Teams Termite Control Technician Relationship Specialty Start Date End Date Gina Bautista, PCP - General Physician Nail Galvanizer 5 09/03/21 Gina Key, PCP - Assigned PCP 01/12/15 05/11/18 [facility] NO INFO AVAILABLE 01/23/2022 Gina Bautista, Physician Nail Galvanizer 01/31/15 Gina Key, Assigned PCP 01/12/15 PAJudi NO INFO AVAILABLE 01/23/2022 documented as of this encounter
--- OUTSIDE RECORDS SUMMARY | 2022-02-18 11:19 | XMS_ITS | Encounter Summary ---
:1985 Author Organization [place] Address [address] [place] [address]. [place] [address] Care Team Providers Name Role Phone Gina [...] Department Care Team Description 02/22/2017 Office Visit [facility] Johny Puga, Acute sinusitis with Urgent Care Ferny gage MD symptoms [place] [id number] 10 days (Primary Dx) [place] [address] [phone] Social History Tobacco Use Types Packs/Day Years Used Date Smoking Tobacco: Never Smokeless Tobacco: Never Alcohol Use Standard Drinks/Week Comments Yes 0 (1 standard drink = 0.6 oz pure alcoho l) Sex Assigned at Date Recorded Not on file documented as of this encounter Last Filed Vital Signs Vital Sign Reading Time Taken Comments Blood Pressure 108/62 02/22/2017 11:59 AM SANITARY LANDFILL SUPERVISOR Pulse 61 02/22/2017 11:59 AM SANITARY LANDFILL SUPERVISOR Temperature 36.7 ??C (98.1 ??F) 02/22/2017 11:59 AM SANITARY LANDFILL SUPERVISOR Respiratory Rate - - Oxygen Saturation 100% 02/22/2017 11:59 AM SANITARY LANDFILL SUPERVISOR Inhaled Oxygen Concentration - - Weight [...] have suggested that the patient Push fluids. TARY LANDFILL SUPERVISOR documented in this encounter Nursing Notes [...] kg). Medication Reconciliation: jennifer Nation CMA (AAMA) TARY LANDFILL SUPERVISOR documented in this encounter Plan of Treatment Not on filedocumented as of this encounter Visit Diagnoses Diagnosis Acute sinusitis with symptoms greater th an 10 days - Primary Acute sinusitis, unspecified documented in this encounter Additional Health Concerns Assessment Noted Time PHQ-9 Depression Total Score: 9 02/19/2017 2:07 PM SANITARY LANDFILL SUPERVISOR documented as of this encounter Care Teams Database Administration Project Manager Relationship Specialty Start Date End Date Gina Bautista, PCP - General Physician Injection Press Operator 5 09/03/21 PALiuC Gina Bautista, PCP - Assigned PCP 01/12/15 05/11/18 PALiuC NO INFO AVAILABLE 01/23/2022 Gina Bautista, Physician Injection Press Operator 01/31/15 Gina Key, Assigned PCP 01/12/15 PAJudi NO INFO AVAILABLE 01/23/2022 documented as of this encounter
--- OUTSIDE RECORDS SUMMARY | 2022-02-18 11:19 | XMS_ITS | Encounter Summary ---
:1985 Author Organization [facility] Address [address] [place] [address]. [place] [address] Care Team Providers Name Role Phone Gina Bautista PA-C Primary Care Provider Unavaila Gina Foley PA-C Unavailable Unavailabl Gina Marrero PA-C Unavailable UnavailGina Hanna PA-C Unavailable Unavailabl e Encounter Details Date Type Department Care Team Description 11/12/2017 [facility] Lisa Lopez LP Documentation Services [address] [phone] Social History Tobacco Use Types Packs/Day [...] documented as of this encounter Care Teams Fuel Cell Designer Relationship Specialty Start Date End Date Gina Bautista PCP - General Physician Business Machines Teacher 5 09/03/21 Gina Key, PCP - Assigned PCP 01/12/15 05/11/18 [facility] NO INFO AVAILABLE 01/23/2022 Gina Bautista, Physician Business Machines Teacher 01/31/15 Gina Key, Assigned PCP 01/12/15 [facility] NO INFO AVAILABLE 01/23/2022 documented as of this encounter
--- OUTSIDE RECORDS SUMMARY | 2022-02-18 11:19 | XMS_ITS | Encounter Summary ---
:1985 Author Organization [place] Address [address] [place] [address] Care Team Providers Name Role Phone Gina Bautista PA-C Primary Care Provider Gina Kee PA-C Unavailable Unavailabl e Gina Bautista PA-C Unavailable Unavailabl Gina Marrero PA-C Unavailable Unavailabl e Reason for Visit Reason Onset Date Comments Patient Request for Note/Letter 04/26/2015 Encounter Details Date Type Department Care Team Description 04/26/2015 Telephone [facility] Gina Bautista Request for Clinic Jigna Vance PA-C Note/Letter [id number] [address] NO INFO AVAILABLE MORAIMA Benito 01/23/2022 [id number] Social History Tobacco Use Types Packs/Day Years Used Date Smoking Tobacco: Never Smokeless Tobacco: Never Alcohol Use Standard Drinks/Week Comments Yes 0 (1 standard drink = 0.6 oz pure alcoho l) Sex Assigned at Date Recorded Not on file documented as of this encounter Miscellaneous Notes Telephone Encounter - Gina Bautista PA-C - 04/27/2015 8:14 AM LOADING SUPERVISOR Note for patient provided for missed work, given to Meg. Gina Bautista PA-C ING SUPERVISOR Telephone Encounter - Irma Boggs RN - [...] in office Thursday. Irma Boggs RN ING SUPERVISOR documented in this encounter Plan of Treatment Not on filedocumented as of this encounter Visit Diagnoses Not on filedocumented in this encounter Additional Health Concerns Assessment Noted Time PHQ-9 Depression Total Score: 16 04/26/2015 8:54 AM CS T documented as of this encounter Care Teams Medical Office Assistant Instructor Relationship Specialty Start Date End Date Gina Bautista PCP - General Physician Yard Supervisor 5 09/03/21 Gina Key, PCP - Assigned PCP 01/12/15 05/11/18 [facility] NO INFO AVAILABLE 01/23/2022 Gina Bautista, Physician Yard Supervisor 01/31/15 Gina Key, Assigned PCP 01/12/15 [facility] NO INFO AVAILABLE 01/23/2022 documented as of this encounter
--- OUTSIDE RECORDS SUMMARY | 2022-02-18 11:19 | XMS_ITS | Encounter Summary ---
:1985 Author Organization [facility] Address [address] [place] [address]. [place] [address] Care Team Providers Name Role Phone Gina Bautista PA-C Primary Care Provider Jaynaa ble Gina Bautista PA-C Unavailable Unavailabl e Gina Bautista PA-C Unavailable Unavailabl e Gina Bautista PA-C Unavailable Unavailabl e Reason for Visit Reason Comments IUD Encounter Details Date Type Department Care Team Description 01/27/2017 Office Visit [facility] Nadine Monreal Encou nter for IUD removal (Primary Dx); [facility] Encounter for preconception consultation [place] [address] [place] [address] [facility] [address] [place], [place] (Work) [address] [phone] Social History Tobacco Use Types Packs/Day Years Used Date Smoking Tobacco: Never Smokeless Tobacco: Never Alcohol Use Standard Drinks/Week Comments Yes 0 (1 standard drink = 0.6 oz pure alcoho l) Sex Assigned at Date Recorded Not on file documented as of this encounter Last Filed Vital Signs Vital Sign Reading Time Taken Comments Blood Pressure 100/60 01/27/2017 1:05 PM TRANSITION NURSE Pulse - - Temperature - - Respiratory Rate - - Oxygen Saturation - - Inhaled Oxygen Concentration - - Weight 79.3 kg (174 lb 12.8 oz) 01/27/2017 1:05 PM TRANSITION NURSE Height - - Body Mass Index 28.21 [...] muscle every 30 days vitamin D (ERGOCALCIFEROL) 45514 UNIT capsule Take 1 capsule (50,000 Units) [...] with hematology as needed. Nadine Monreal MD [facility] SITION NURSE documented in this encounter Nursing Notes Nataliia [...] 12.8 oz (79.3 kg). Medication Reconciliation: complete SITION NURSE documented in this encounter Plan of Treatment Not on filedocumented as of this encounter Procedures Procedure Name Priority Date/Time Associated Diagnosis Comme nts HC REMOVE INTRAUTERINE Routine 01/27/2017 1:33 PM Encounter fo r IUD DEVICE TRANSITION NURSE removal documented in this encounter Visit Diagnoses Diagnosis Encounter for IUD removal - Primary Encounter for removal of intrauterine co ntraceptive device Encounter for preconception consultation documented in this encounter Additional Health Concerns Assessment Noted Time PHQ-9 Depression Total Score: 7 12/19/2016 3:37 PM CDT documented as of this encounter Care Teams Wall Covering Contractor Relationship Specialty Start Date End Date Gina Bautista PCP - General Physician Powderer 5 09/03/21 Gina Key PCP - Assigned PCP 01/12/15 05/11/18 [facility] NO INFO AVAILABLE 01/23/2022 Gina Bautista, Physician Powderer 01/31/15 Gina Key, Assigned PCP 01/12/15 [facility] NO INFO AVAILABLE 01/23/2022 documented as of this encounter
--- OUTSIDE RECORDS SUMMARY | 2022-02-18 11:19 | XMS_ITS | Encounter Summary ---
:1985 Author Organization [facility] Address [address] [place] [address] Care Team Providers Name Role Phone Gina [...] Expiration Date Visits Requ ested Visits Authorized [id number] Closed 12/29/2016 12/29/2017 1 1 Reason for Visit Reason Comments Imm/Inj starting B 12 injections Encounter Details Date Type Department Care Team Description 12/29/2016 Allied Health/Nurse [facility] Imm /Inj (starting B 12 Visit Clinic [place] injections ) [address] [place] [phone] Social History Tobacco Use Types Packs/Day Years [...] documented as of this encounter Care Teams Acquisitions Editor Relationship Specialty Start Date End Date Gina Bautista PCP - General Physician Intake Coordinator 5 09/03/21 Gina Key, PCP - Assigned PCP 01/12/15 05/11/18 [facility] NO INFO AVAILABLE 01/23/2022 Gina Bautista Physician Intake Coordinator 01/31/15 Gina Key, Assigned PCP 01/12/15 PAJudi NO INFO AVAILABLE 01/23/2022 documented as of this encounter
--- OUTSIDE RECORDS SUMMARY | 2022-02-18 11:19 | XMS_ITS | Encounter Summary ---
:1985 Author Organization [place] Address [address] [place] [address] Care Team Providers Name Role Phone Paul Palumbo PA-C Primary Care Provider Oscar ble Paul Palumbo PA-C Unavailable Unavailabl e Paul Palumbo PA-C Unavailable Unavailabl e Paul Palumbo PA-C Unavailable Unavailabl e Reason for Referral Consultation - Closed Specialty Diagnoses / Procedures Referred By Contact Refer red To Contact Diagnoses Low hemoglobin S/P gastric bypass Vitamin B 12 deficiency Paul Palumbo [facility] PAJudi HEMATOLOGY NO INFO AVAILABLE [address] [place] [address] 01/23/2022 [address] [place] [address] Phone: [phone] Fax: Referral ID Status Reason Start Date Expiration Date Visits Requ ested Visits Authorized [id number] Closed 12/24/2016 12/24/2017 1 1 RAGS LABORER - Closed Specialty Diagnoses / Procedures Referred By Contact Refer red To Contact Diagnoses Family planning counseling IUD check up Paul Palumbo [facility] DOLORES [place] NO INFO AVAILABLE [address] [facility] 01/23/2022 [place] [address] Phone: Fax: Referral ID Status Reason Start Date Expiration Date Visits Requ ested Visits Authorized [id number] Closed 12/19/2016 12/19/2017 1 1 Reason for Visit Reason Comments Physical Flu Shot Encounter Details Date Type Department Care Team Description 12/19/2016 Office Visit [facility] Paul Palumbo general medical examination at a health care facility (Primary Dx); Clinic Jigna Vance PA-C 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 - RAGS LABORER REFERRAL 9. Family planning counseling Patient interested in future , was high risk in past, had 4 miscarriages. Will refer to RAGS LABORER to discuss future conception. - RAGS LABORER REFERRAL 10. Need for prophylactic vaccination and inoculation against influenza - FLU VAC, SPLIT VIRUS IM > 3 YO (QUADRIVALENT) [03038] - Vaccine Administration, Initial [52641] COUNSELING: Reviewed preventive health counseling, as reflected [...] hemoglobin and mood issues. Paul Palumbo PA-C [facility] Answers for HPI/ROS submitted by [...] Type Priority Associated Diagnoses Order S chedule RAGS LABORER REFERRAL Referral Routine Family planning Ordered: 12/19/2016 [...] or this PM CDT medical examination at [facility] are in a health care facility [...] or this PM CDT medical examination at [facility] are in a health care facility the r esults section. COMPREHENSIVE Routine 12/19/2016 3:33 Hypothyroidism due to Re sults for this METABOLIC PANEL PM CDT acquired atrophy of [facility] dure are in thyroid the results Overweight [...] T4 reflex FUTURE 2mo (04/10/2017 2:35 PM ENVIRONMENTAL MARKETER) athologist Signature TSH 10.56 (H) 0.40 - 04/12/2017 [facility] 4.00 mU/L 1:28 PM ENVIRONMENTAL MARKETER [facility] Specimen Anatomical Collection Method Collection Time Receive d Time (Source) Location / / Volume Laterality Blood specimen 04/10/2017 2:35 PM 018 2:36 (specimen) ENVIRONMENTAL MARKETER PM ENVIRONMENTAL MARKETER Paul Palumbo PA-C LAB - BLOOD ORDERABLES Performing Organization Address City/[facility]/ZIP Code Phon e Number [facility] [address] [place] [address] (ABNORMAL) Vitamin D Deficiency (04/10/2017 2:35 PM ENVIRONMENTAL MARKETER) athologist Signature Vitamin D 13 (L) 20 - 75 04/11/2017 [facility] ug/L 11:46 AM [facility] screening [facility] Comment: Season, race, dietary intake, and treatm ent affect the concentration of 53-sknozob-Wpouces D. Values may decreas e during winter [...] specimen 04/10/2017 2:35 PM 018 2:36 (specimen) ENVIRONMENTAL MARKETER PM ENVIRONMENTAL MARKETER Paul Palumbo PA-C LAB - BLOOD ORDERABLES Performing Organization Address City/State/ZIP Code Phon e Number [facility] [address] [place] [address] [facility] T4 free (12/19/2016 3:33 PM CDT) P athologist Signature T4 Free 1.00 0.76 - 1.46 12/20/2016 [facility] ng/dL 1:20 PM CDT [facility] Specimen Anatomical Collection Method Collection Time Receive d Time (Source) Location / / Volume Laterality 12/19/2016 3:33 PM 7 3:34 CDT PM CDT Paul Palumbo PA-C LAB - BLOOD ORDERABLES Performing Organization Address City/State/ZIP Code Phon e Number [facility] [address] [place] [address] WBC Differential (12/19/2016 3:33 PM CDT) Patholo gist Method Time Signature Diff Method Automated 12/19/2016 [facility] Method 9:06 PM [facility] % Neutrophils 64.0 % 12/19/2016 [facility] 9:06 PM [facility] % Lymphocytes 25.2 % 12/19/2016 [facility] 9:06 PM [facility] % Monocytes 7.7 % 12/19/2016 [facility] 9:06 PM [facility] % Eosinophils 2.3 % 12/19/2016 [facility] 9:06 PM [facility] % Basophils 0.5 % 12/19/2016 [facility] 9:06 PM [facility] % Immature 0.3 % 12/19/2016 [facility] Granulocytes 9:06 PM [facility] Nucleated RBCs 0 0 /100 12/19/2016 [facility] 9:06 PM [facility] Absolute 4.2 1.6 - 8.3 12/19/2016 [facility] Neutrophil 10e9/L 9:06 PM [facility] Absolute 1.7 0.8 - 5.3 12/19/2016 [facility] Lymphocytes 10e9/L 9:06 PM [facility] Absolute 0.5 0.0 - 1.3 12/19/2016 [facility] Monocytes 10e9/L 9:06 PM [facility] Absolute 0.2 0.0 - 0.7 12/19/2016 [facility] Eosinophils 10e9/L 9:06 PM [facility] Absolute 0.0 0.0 - 0.2 12/19/2016 [place] Basophils 10e9/L 9:06 PM [facility] Abs Immature 0.0 0 - 0.4 12/19/2016 [place] Granulocytes 10e9/L 9:06 PM [facility] Absolute 0.0 12/19/2016 [facility] Nucleated RBC 9:06 PM [facility] Anisocytosis Slight 12/19/2016 [facility] 9:06 PM [facility] Ovalocytes Slight 12/19/2016 [facility] 9:06 PM [facility] Microcytes Present 12/19/2016 [facility] 9:06 PM [facility] Platelet Normal 12/19/2016 [facility] Estimate 9:06 PM [facility] Specimen Anatomical Collection Method Collection Time Receive d Time (Source) Location / / Volume Laterality 12/19/2016 3:33 PM 7 4:07 CDT PM CDT Paul Palumbo PA-C LAB - BLOOD ORDERABLES Performing Organization Address City/State/ZIP Code Phon e Number [facility] [address] [address] [facility] [address] [phone] Reticulocyte Count (12/19/2016 3:33 PM CDT) P athologist Signature % Retic 1.1 0.5 - 2.0 12/19/2016 [place] % 7:25 PM [facility] Absolute Retic 43.0 25 - 95 12/19/2016 [place] 10e9/L 7:25 PM [facility] Specimen Anatomical Collection Method Collection Time Receive d Time (Source) Location / / Volume Laterality Blood specimen 12/19/2016 3:33 PM 017 4:07 (specimen) CDT PM CDT Paul Palumbo PA-C LAB - BLOOD ORDERABLES Performing Organization Address City/State/ZIP Code Phon e Number [facility] [address] [address] [facility] [address] [phone] Blood Morphology Pathologist Review (12/19/2016 3:33 PM CDT) Component Value Ref Test Analysis Performed Pathologis t Range Method Time At Signature Copath Patient Name: TASHA PHELAN Report MR#: [id number] Specimen #: [id number] Collected: 12/19/2016 Received: 12/22/2016 Reported: 12/22/2016 10:01 [...] 12-22-2016 @ 10:01 AM). CPT Codes: A: 22901-LZLD TESTING LAB LOCATION: [address] ??[address] COLLECTION SITE: Client: ??[facility] Location: ??RMFP (R) Specimen Anatomical Collection Method [...] 12/19/2016 [facility] pg/mL 10:23 PM CDT [facility] Specimen Anatomical Collection Method Collection Time Receive d Time (Source) Location / / Volume Laterality Blood specimen 12/19/2016 3:33 PM 017 3:34 (specimen) CDT PM CDT Paul Palumbo PA-C LAB - BLOOD ORDERABLES Performing Organization Address City/[facility]/ZIP Code Phon e Number [address] (ABNORMAL) Vitamin D Deficiency (12/19/2016 3:33 PM CDT) athologist Signature Vitamin D 17 (L) 20 - 75 12/21/2016 [facility] Deficiency ug/L 3:[address] [facility] Comment: Season, race, dietary intake, and treatm ent affect the concentration of 57-zoxvhjo-Juwebsi D. Values may decreas e during winter [...] Address City/[facility]/ZIP Code Phon e Number [address] (ABNORMAL) Comprehensive metabolic panel (12/19/2016 3:33 PM CDT) [facility] gist Method Time Signature Sodium 140 133 - 144 12/20/2016 [place] mmol/L 12:54 PM CDT [facility] Potassium 4.2 3.4 - 5.3 12/20/2016 [place] mmol/L 12:54 PM CDT [facility] Chloride 110 (H) 94 - 109 12/20/2016 [place] mmol/L 12:54 PM CDT [facility] Carbon Dioxide 21 20 - 32 12/20/2016 [place] mmol/L 12:54 PM CDT [facility] Anion Gap 9 3 - 14 12/20/2016 [place] mmol/L 12:54 PM CDT [facility] Glucose 85 70 - 99 12/20/2016 [place] mg/dL 12:54 PM T [facility] Urea Nitrogen 9 7 - 30 12/20/2016 [place] mg/dL 12:54 PM T [facility] Creatinine 0.75 0.52 - 12/20/2016 [place] 1.04 mg/dL 12:54 PM T [facility] GFR Estimate >90 >60 12/20/2016 [facility] mL/min/1.7 12:54 PM CDT CLINICS m2 [facility] Comment: Non GFR Calc GFR Estimate If >90 >60 mL/min/1.7m2 12/20/2016 12:54 PM [facility] Black T [facility] Comment: GFR Calc Calcium 8.7 8.5 - 10.1 12/20/2016 12:54 PM [facility] mg/dL T [facility] Bilirubin Total 0.4 0.2 - 1.3 mg/dL 12/20/2016 12:54 P [facility] Albumin 3.9 3.4 - 5.0 g/dL 12/20/2016 12:[address] [facility] Protein Total 7.6 6.8 - 8.8 g/dL 12/20/2016 12:54 PM [facility] Alkaline Phosphatase 61 40 - 150 U/L 12/20/2016 1:02 PM [facility] ALT 20 0 - 50 U/L 12/20/2016 12:54 PM [facility] AST 15 0 - 45 U/L 12/20/2016 12:54 PM [facility] Specimen Anatomical Collection Method Collection Time Receive d Time (Source) Location / / Volume Laterality Blood specimen 12/19/2016 3:33 PM 017 3:34 (specimen) CDT PM CDT Paul Palumbo PA-C LAB - BLOOD ORDERABLES Performing Organization Address City/[facility]/ZIP Code Phon e Number [facility] [address] [place] [address] (ABNORMAL) TSH with free T4 reflex (12/19/2016 3:33 PM CDT) P athologist Signature TSH 8.78 (H) 0.40 - 12/20/2016 [facility] 4.00 mU/L 1:02 PM CDT [facility] Specimen Anatomical Collection Method Collection Time Receive d Time (Source) Location / / Volume Laterality Blood specimen 12/19/2016 3:33 PM 017 3:34 (specimen) CDT PM CDT Paul Palumbo PA-C LAB - BLOOD ORDERABLES Performing Organization Address City/[facility]/ZIP Code Phon e Number [facility] [address] [place] [address] (ABNORMAL) Iron and iron binding capacity (12/19/2016 3:33 PM CDT) [facility] gist Method Time Signature Iron 10 (L) 35 - 180 12/20/2016 [facility] ug/dL 12:54 PM CDT [facility] Iron Binding 528 (H) 240 - 430 12/20/2016 [facility] Cap ug/dL 12:54 PM CDT [facility] Iron Saturation 2 (L) 15 - 46 % 12/20/2016 [facility] Index 12:54 PM CDT [facility] Specimen Anatomical Collection Method Collection Time Receive d Time (Source) Location / / Volume Laterality Blood specimen 12/19/2016 3:33 PM 017 3:34 (specimen) CDT PM CDT Paul Palumbo PA-C LAB - BLOOD ORDERABLES Performing Organization Address City/[facility]/ZIP Code Phon e Number [facility] [address] [address] (ABNORMAL) Ferritin (12/19/2016 3:33 PM CDT) athologist Signature Ferritin 2 (L) 12 - 150 12/20/2016 [facility] ng/mL 12:55 PM CDT [facility] Specimen Anatomical Collection Method Collection Time Receive d Time (Source) Location / / Volume Laterality Blood specimen 12/19/2016 3:33 PM 017 3:34 (specimen) CDT PM CDT Paul Palumbo PA-C LAB - BLOOD ORDERABLES Performing Organization Address [facility]/ZIP Code Phon e Number [facility] [address] [place] [address] (ABNORMAL) CBC with platelets (12/19/2016 3:33 PM CDT) athologist Signature WBC 6.4 4.0 - 11.0 12/19/2016 [facility] 10e9/L 3:43 PM CDT [facility] RBC Count 3.97 3.8 - 5.2 12/19/2016 [facility] 10e12/L 3:43 PM CDT [facility] Hemoglobin 7.2 (L) 11.7 - 15.7 12/19/2016 [facility] g/dL 3:43 PM CDT [facility] Comment: Critical Value called to and read back b y TO PAUL PALUMBO PAC ON12/19/16 1540 DA Hematocrit 25.5 (L) 35.0 - 47.0 % 12/19/2016 3:43 PM CDT [facility] MCV 64 (L) 78 - 100 fl 12/19/2016 3:43 PM CDT [facility] MCH 18.1 (L) 26.5 - 33.0 pg 12/19/2016 3:43 PM CDT [facility] MCHC 28.2 (L) 31.5 - 36.5 g/dL 12/19/2016 3:43 PM CDT [facility] Comment: Results confirmed by repeat mónica t RDW 17.4 (H) 10.0 - 15.0 % 12/19/2016 3:43 PM [facility] [place] Platelet Count 375 150 - 450 10e9/L 12/19/2016 3:43 PM [facility] [place] Specimen Anatomical Collection Method Collection Time Receive d Time (Source) Location / / Volume Laterality Blood specimen 12/19/2016 3:33 PM 017 3:34 (specimen) CDT PM CDT Paul Palumbo PA-C LAB - BLOOD ORDERABLES Performing Organization Address City/State/ZIP Code Phon e Number [facility] [address] [address] Pap imaged thin layer screen reflex to HPV if ASCUS - recommend age 25 - 29 (12/19/2016 3:05 PM CDT) Component Value Ref Test Analysis Performed At [facility] Range Method Time Signature PAP NIL COPATH Copath Report COPATH Patient Name: TASHA PHELAN MR#: [id number] Specimen #: [id number] Collected: 12/19/2016 Received: 12/22/2016 Reported: 12/23/2016 13:10 [...] MATEUSZ Rodrigez (ASCP) Processed and screened at [facility] Ce eugenia Pending Sale To [facility] CLINICAL HISTORY: Currently not having periods, Intra-Uterine Device, Papanicolaou Test Limitations: ??Cervical cytology is a scre ening test with limited sensitivity; regular screening is critical for cancer prevention; Pap tests are primarily effective for the diagnosis/prevention of squamous cell carcinoma, not adenoca rcinomas or other cancers. TESTING LAB LOCATION: [facility] [address] [place], [place] ??[address] COLLECTION SITE: Client: ??[facility] Location: RMFP (R) Specimen (Source) Anatomical Collection [...] documented as of this encounter Care Teams Intelligent Systems Engineer Relationship Specialty Start Date End Date Paul Palumbo PCP - General Physician Grade Checker 5 09/03/21 Paul Key PCP - Assigned PCP 01/12/15 05/11/18 D[facility] NO INFO AVAILABLE 01/23/2022 Paul Palumbo, Physician Grade Checker 01/31/15 Paul Key, Assigned PCP 01/12/15 [place] NO INFO AVAILABLE 01/23/2022 documented as of this encounter
--- OUTSIDE RECORDS SUMMARY | 2022-02-18 11:19 | XMS_ITS | Encounter Summary ---
:1985 Author Organization [place] Address [address] [place] [address] Care Team Providers Name Role Phone Gina Bautista PA-C Primary Care Provider Unavaila Gina Foley PA-C Unavailable Unavailabl Vidya Romero APRN [facility] Unavailable [phone] [facility], [facility] Unavailable Reason for Referral Consultation (Urgent: 3-5 Days) - Pending Review Specialty Diagnoses / Procedures Referred By Contact Refer red To Contact Endocrinology, Diagnoses Hypothyroidism System, Provider Not Diabetes, and In Metabolism Referral ID Status Reason Start Date Expiration Date Visits V isits Requested Authorized [id number] Pending 2021 2022 1 1 Review Scheduling [...] Referral Urgent: 3-5 Days Hypothyroidism Ex pected: Emergency Medical Service Manager Referral (Approximate), Expires: 2022 documented as of this encounter Visit Diagnoses Diagnosis Hypothyroidism - Primary Unspecified hypothyroidism documented in this encounter Additional Health Concerns Assessment Noted Time PHQ-9 Depression Total Score: 10 05/09/2017 8:01 AM CS T documented as of this encounter Care Teams Dust Mixer Relationship Specialty Start Date End Date Gina Bautista, PCP - General Physician Parking Patroller 5 09/03/21 Gina Key, Physician Parking Patroller 01/31/15 Vidya Pollack APRN CNM Staff Research Scientist 08/21/[address] [address] [facility], [facility] 08/21/[address] [address] documented as of this encounter
--- OUTSIDE RECORDS SUMMARY | 2022-02-18 11:19 | XMS_ITS | Encounter Summary ---
:1985 Author Organization [place] Address [address] [place] [address]. [place] [address] Care Team Providers Name Role Phone Gina Bautista PA-C Primary Care Provider Unavaila ble Gina Bautista PA-C Unavailable Unavailabl Vidya Romero APRN, CNM Unavailable [phone] Clinic, [facility] Unavailable Encounter Details Date Type Department Care Team Description 08/08/2021 Medical Correspondence [facility] Scan, ENDOCRINOLOGY ORDER Health Info [facility] Non-Provider [facility] [address] [place] [phone] Social History Tobacco Use Types Packs/Day [...] as of this encounter Care Teams Enterprise Application Administrator Relationship Specialty Start Date End Date Gina Bautista, EVA - General Physician Headliner Installer 5 09/03/21 Gina Key, Physician Headliner Installer 01/31/15 Vidya Pollack APRN CNM Infant Lead Teacher 08/21/[address] [place] [address] [facility], [facility] 08/21/[address] [address] documented as of this encounter
--- OUTSIDE RECORDS SUMMARY | 2022-02-18 11:19 | XMS_ITS | Encounter Summary ---
:1985 Author Organization [place] Address [address] [place] [address] Care Team Providers Name Role Phone Gina Bautista PA-C Primary Care Provider Unavaila Gina Foley PA-C Unavailable Unavailabl Gina Marrero PA-C Unavailable UnavailGina Hanna PA-C Unavailable Unavailabl e Encounter Details Date Type Department Care Team Description 04/27/2015 Orders Only [facility] Iro n deficiency anemia, [place] [facility] unspecified iron [address] [place] [address] Social History Tobacco Use [...] deficiency Resu lts for this [facility] anemia, unspecified proc edure are in iron deficiency the results section. FERRITIN Routine 04/27/2015 11:50 AM Iron deficiency Resul ts for this [facility] anemia, unspecified procedur e are in iron deficiency the results section. documented in this encounter Results (ABNORMAL) Iron and iron binding capacity (04/27/2015 11:50 AM [facility]) [facility] Time Signature Iron 13 (L) 35 - 180 [place] ug/dL [facility] Iron Binding 619 (H) 240 - 430 [place] Cap ug/dL [facility] Iron Saturation 2 (L) 15 - 46 % [facility] Specimen Anatomical Collection Method Collection Time Receive d Time (Source) Location / / Volume Laterality Blood specimen 04/27/2015 11:50 6 (specimen) AM [facility] 11:51 AM [facility] Gina ALONSOC LAB - BLOOD ORDERABLES Performing Organization Address City/[facility]/ZIP Code Phon e Number [facility] [address] [place] [address] (ABNORMAL) Ferritin (04/27/2015 11:50 AM [facility]) athologist Signature Ferritin 2 (L) 12 - 150 [facility] ng/mL [facility] Specimen Anatomical Collection Method Collection Time Receive d Time (Source) Location / / Volume Laterality Blood specimen 04/27/2015 11:50 6 (specimen) AM [facility] 11:51 AM [facility] Gina RAMIREZ-C LAB - BLOOD ORDERABLES Performing Organization Address City/[facility]/ZIP Code Phon e Number [facility] [address] [place] [address] documented in this encounter Visit Diagnoses Diagnosis Iron deficiency anemia, unspecified iron deficiency documented in this encounter Additional Health Concerns Assessment Noted Time PHQ-9 Depression Total Score: 16 04/26/2015 8:54 AM CS T documented as of this encounter Care Teams Lead Warehouse Associate Relationship Specialty Start Date End Date Gina Bautista PCP - General Physician Filteration Operator 5 09/03/21 Gina Key PCP - Assigned PCP 01/12/15 05/11/18 PAJudi NO INFO AVAILABLE 01/23/2022 Gina Bautista, Physician Filteration Operator 01/31/15 Gina Key, Assigned PCP 01/12/15 PAJudi NO INFO AVAILABLE 01/23/2022 documented as of this encounter
--- OUTSIDE RECORDS SUMMARY | 2022-02-18 11:19 | XMS_ITS | Encounter Summary ---
:1985 Author Organization [place] Address [address] [place] [address] Care Team Providers Name Role Phone Gina Bautista PA-C Primary Care Provider Gina Kee PA-C Unavailable Unavailabl e Gina Bautista PA-C Unavailable Unavailabl Gina Marrero PA-C Unavailable Unavailabl e Reason for Visit Reason Comments Sinus Problem Encounter Details Date Type Department Care Team Description 07/27/[address] [facility] Gina Bautista Acute recurrent Clinic Jigna Vance PA-C maxillary sinusitis [address] NO INFO (Primary Dx) [place]IMA [place] AVAILABLE [phone] 01/23/2022 Social History Tobacco Use Types Packs/Day [...] She has been treated twice by in [place] with Amoxicillin without relief No fever, very [...] the plan of care. Gina Bautista PA-C [facility] documented in this encounter Nursing Notes Monica [...] phone number for results from this visit [phone] OK to leave message Marianne Tony CMA [...] documented as of this encounter Care Teams Podiatric Medicine Doctor Relationship Specialty Start Date End Date Gina Bautista PCP - General Physician Consumer Electronics Merchandiser 5 09/03/21 Gina Key, PCP - Assigned PCP 01/12/15 05/11/18 [place] NO INFO AVAILABLE 01/23/2022 Gina Bautista, Physician Consumer Electronics Merchandiser 01/31/15 Gina Key, Assigned PCP 01/12/15 [place] NO INFO AVAILABLE 01/23/2022 documented as of this encounter
--- OUTSIDE RECORDS SUMMARY | 2022-02-18 11:19 | XMS_ITS | Encounter Summary ---
:1985 Author Organization [facility] Address [address] [place] [address]. [place] [address] Care Team Providers Name Role Phone Gina Bautista PA-C Primary Care Provider Gina Kee PA-C Unavailable Unavailabl e Gina Bautista PA-C Unavailable Unavailabl Gina Marrero PA-C Unavailable Unavailabl e Reason for Visit Mental Health Outpatient (Routine) - Closed Specialty Diagnoses / Procedures Referred By Contact Refer red To Contact Gina Bautista [facility] SERVICES [facility] NO INFO AVAILABLE [address] [place] [address] 01/23/2022 [place] [address] Phone: Fax: Referral ID Status Reason Start Date Expiration Date Visits Requ ested Visits Authorized [facility] Closed 01/14/2017 01/14/2018 1 52 Encounter Details Date Type Department Care Team Description 02/06/2017 Office Visit [facility] Lisa Lopez LP Anxiety (Primary Dx) Services [id number] [place] [address] [phone] Social History Tobacco Use Types Packs/Day [...] NAME: Carley Hernandez : 1985 ACCT. NUMBER: [id number] DATE OF SERVICE: 02/06/17 Identifying Information: Client is a 31 year old, , female. Client was referred for counseling by self. 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 Client attended the session alone. Client's Statement [...] History: Client reported she grew up in [place], [place]. They were the second born of [...] concentration. There are no ethnic, cultural or anabaptism factors that may be relevant for therapy. Client identified her preferred language to be Irish. Client reported she does not need the assistance of an reel blade bender furnace tender or other support involved in therapy. [...] an exam with PCP. The clienthas a [facility] Primary Care Provider, who is named Gina [...] muscle every30 days ??? vitamin D (ERGOCALCIFEROL) 44624 UNIT capsule Take 1 capsule (50,000 Units) [...] the following activities. For each question, please ho-chunk only one response. S1 Standing for long [...] Plan: The client reports no currently identified anabaptism, ethnic or cultural issues relevant to therapy. Supervisor Fleshing services are not indicated. Modifications to assist [...] Client will have access to their [facility]' medical record. Lisa Lopez LP February 06, 2017 HYGIENIST documented in this encounter Plan of Treatment Not on filedocumented as of this encounter Visit Diagnoses Diagnosis Anxiety - Primary Anxiety state, unspecified documented in this encounter Additional Health Concerns Assessment Noted Time PHQ-9 Depression Total Score: 7 12/19/2016 3:37 PM CDT documented as of this encounter Care Teams Operation Shift Supervisor Relationship Specialty Start Date End Date Gina Bautista PCP - General Physician Frame Welder Cargo Utility Trailers 5 09/03/21 Gina Key PCP - Assigned PCP 01/12/15 05/11/18 [facility] NO INFO AVAILABLE 01/23/2022 Gina Bautista Physician Frame Welder Cargo Utility Trailers 01/31/15 Gina Key, Assigned PCP 01/12/15 [facility] NO INFO AVAILABLE 01/23/2022 documented as of this encounter
--- OUTSIDE RECORDS SUMMARY | 2022-02-18 11:19 | XMS_ITS | Encounter Summary ---
:1985 Author Organization [facility] Address [address] [place] [address]. [place] [address] Care Team Providers Name Role Phone Gina Bautista PA-C Primary Care Provider Gina Kee PA-C Unavailable Unavailabl Gina Marrero PA-C Unavailable UnavailGina Hanna PA-C Unavailable Unavailabl e Encounter Details Date Type Department Care Team Description 05/22/2017 Office Visit [facility] Lisa Lopez LP Anxiety (Primary Dx) Services [address] [phone] Social History Tobacco Use Types Packs/Day [...] documented as of this encounter Care Teams Airport Operations Duty Manager Relationship Specialty Start Date End Date Gina Bautista PCP - General Physician Demo Specialist 5 09/03/21 Gina Key PCP - Assigned PCP 01/12/15 05/11/18 [facility] NO INFO AVAILABLE 01/23/2022 Gina Bautista, Physician Demo Specialist 01/31/15 Gina Key, Assigned PCP 01/12/15 [facility] NO INFO AVAILABLE 01/23/2022 documented as of this encounter
--- OUTSIDE RECORDS SUMMARY | 2022-02-18 11:19 | XMS_ITS | Encounter Summary ---
:1985 Author Organization [facility] Address [address] [place] [address] Care Team Providers Name Role Phone Gina Bautista PA-C Primary Care Provider Gina Kee PA-C Unavailable Unavailabl Gina Marrero PA-C Unavailable Unavailabl Gina Marrero PA-C Unavailable Unavailabl e Reason for Visit Reason Comments URI Encounter Details Date Type Department Care Team Description 06/25/2015 Office Visit [facility] Serum, Ro Viral URI (Primary Dx); Yony Yarbrough MD Acute pharyngitis, unspecified etiology [address] [facility] [address] [place] [phone] [address] [place], [place] [address] Social History Tobacco Use [...] list, Allergies, and Medical/Social/Surgical histories reviewed in [facility] andupdated as appropriate. OBJECTIVE: BP [...] Component Value Ref Test Analysis Performed At [facility] gist Range Method Time Signature Specimen Throat [facility] YONY Culture Micro No Beta [place] Streptococcus CLINICS isolated YONY Micro Report FINAL 06/27/2015 [place] Status [facility] Specimen Anatomical Collection Method Collection Time Receive d Time (Source) Location / / Volume Laterality 06/25/2015 5:20 PM 6 5:25 CDT PM CDT Ro Salgado MD LAB - MICRO GENERAL ORDERABL Performing Organization Address City/State/ZIP Code Phon e Number [facility] [address] [place] [address] Strep, Rapid Screen (06/25/2015 5:20 PM CDT) Component Value Ref Test Analysis Performed At [facility] Method Time Signature Specimen Throat [facility] YONY Rapid Strep A NEGATIVE: No Group A strepto coccal antigen detected by immunoassay, await [facility] Screen culture report. CLINICS YONY Micro Report FINAL 06/25/2015 [place] Status [facility] Specimen Anatomical Collection Method Collection Time Receive d Time (Source) Location / / Volume Laterality Specimen from 06/25/2015 5:20 PM 06/25/19 16 5:25 throat CDT PM CDT (specimen) Ro Salgado MD LAB - MICRO GENERAL ORDERABL ES Performing Organization Address City/State/ZIP Code Phon e Number [address] [address] documented in this encounter Visit Diagnoses Diagnosis Viral URI - Primary Acute upper respiratory infections of un specified site Acute pharyngitis, unspecified etiology documented in this encounter Additional Health Concerns Assessment Noted Time PHQ-9 Depression Total Score: 16 04/26/2015 8:54 AM CS T documented as of this encounter Care Teams Scrub Nurse Relationship Specialty Start Date End Date Gina Bautista PCP - General Physician Hotel Office Manager 5 09/03/21 [facility] Gina Bautista, PCP - Assigned PCP 01/12/15 05/11/18 [facility] NO INFO AVAILABLE 01/23/2022 Gina Bautista, Physician Hotel Office Manager 01/31/15 [facility] Gina Bautista, Assigned PCP 01/12/15 PA[facility] NO INFO AVAILABLE 01/23/2022 documented as of this encounter
--- OUTSIDE RECORDS SUMMARY | 2022-02-18 11:20 | XMS_ITS | Encounter Summary ---
:1985 Author Organization [place] Address [address] [place] [address] Care Team Providers Name Role Phone Unavailable Primary Care Provider Unavailable Encounter Details Date Type Department Care Team Description 09/30/2005 Results Only [facility] [place] [address] (Wo rk) Social History Tobacco Use Types [...]
--- OUTSIDE RECORDS SUMMARY | 2022-02-18 11:20 | XMS_ITS | Encounter Summary ---
:1985 Author Organization [facility] Address [address] [place] [address]. [place] [address] Care Team Providers Name Role Phone Unavailable Primary Care Provider Unavailable Encounter Details Date Type Department Care Team Description 05/23/2005 Historic Results INTERFACED REPORT Aleksandra Carrizales MD [address] [phone] (Wo rk) Social History Tobacco Use Types Packs/Day Years Used Date Smoking Tobacco: Never Assessed Sex Assigned at Date Recorded Not on file documented as of this encounter Plan of Treatment Not on filedocumented as of this encounter Procedures Procedure Name Priority Date/Time Associated Comments Diagnosis WET PREPARATION STAT 05/23/2005 9:45 AM Result s for this PROFESSOR OF PHYSICS procedure are i n the results section. NEISSERIA GONORRHOEAE STAT 05/23/2005 9:45 AM Results for this PCR PROFESSOR OF PHYSICS procedure are i n the results section. CHLAMYDIA TRACHOMATIS STAT 05/23/2005 9:45 AM Results for this PCR PROFESSOR OF PHYSICS procedure are i n the results section. HCG QUALITATIVE URINE STAT 05/23/2005 9:20 AM Results for this PROFESSOR OF PHYSICS procedure are i n the results section. ROUTINE UA WITH STAT 05/23/2005 9:20 AM Result s for this MICROSCOPIC PROFESSOR OF PHYSICS procedure are i n the results section. HEMOGRAM DIFFERENTIAL STAT 05/23/2005 7:35 AM Results for this AND PLATELET PROFESSOR OF PHYSICS procedure are i n the results section. BASIC METABOLIC PANEL STAT 05/23/2005 7:35 AM Results for this PROFESSOR OF PHYSICS procedure are i n the results section. documented in this encounter Results Chlamydia trachomatis PCR (05/23/2005 9:45 AM PROFESSOR OF PHYSICS) Component Value Ref Test Analysis Performed At [facility] Method Time Signature Specimen Cervical MISYS Description Chlamydia Negative for C. MISYS Trachomatis PCR trachomatis rRNA by can carrier mediated amplification. Comment: A negative result by can carrier medi ated amplification does not preclude the presence of C. trachomatis infection be cause results are dependent on proper and adequate collection, absence of inh ibitors, and sufficient rRNA to be detected. Specimen Anatomical Collection Method Collection Time Receive d Time (Source) Location / / Volume Laterality 05/23/2005 9:45 AM 6 PROFESSOR OF PHYSICS 10:02 AM PROFESSOR OF PHYSICS [facility] LAB - MICRO GENERAL ORDERABL ES Performing Organization Address City/State/ZIP Code Phon e Number MISYS Neisseria gonorrhoeae PCR (05/23/2005 9:45 AM PROFESSOR OF PHYSICS) [facility] Method Time Signature Specimen Cervical MISYS Descrip N Gonorrhea Negative for N. MISYS PCR gonorrhoeae rRNA by can carrier mediated amplification. Comment: A negative result by can carrier medi ated amplification does not preclude the presence of N. gonorrhoeae infection be cause results are dependent on proper and adequate collection, absence of inh ibitors, and sufficient rRNA to be detected. Specimen Anatomical Collection Method Collection Time Receive d Time (Source) Location / / Volume Laterality 05/23/2005 9:45 AM 6 PROFESSOR OF PHYSICS 10:02 AM PROFESSOR OF PHYSICS [facility] LAB - MICRO GENERAL ORDERABL ES Performing Organization Address City/[facility]/ZIP Code Phon e Number MISYS Wet prep (05/23/2005 9:45 AM PROFESSOR OF PHYSICS) [facility] Method Time Signature Specimen Vagina MISYS Description Micro Report FINAL MISYS Status [id number] Wet Prep Few PMN'S MISYS seen Comment: No Trichomonas seen No yeast seen No clue cells seen Specimen Anatomical Collection Method Collection Time Receive d Time (Source) Location / / Volume Laterality 05/23/2005 9:45 AM 6 PROFESSOR OF PHYSICS 10:02 AM PROFESSOR OF PHYSICS [facility] LAB - MICRO GENERAL ORDERABL ES Performing Organization Address City/State/ZIP Code Phon e Number MISYS (ABNORMAL) Routine UA with microscopic (05/23/2005 9:20 AM PROFESSOR OF PHYSICS) [facility] Method Time Signature Source Midstream MISYS Urine Color Urine Yellow MISYS Appearance Urine Clear MISYS Glucose Urine Negative NEG mg/dL MISYS Bilirubin Urine Negative NEG MISYS Ketones Urine Negative NEG mg/dL MISYS Specific [place] 1.016 1.003 - MISYS Urine 1.035 Blood [...] Volume Laterality 05/23/2005 9:20 AM 6 7:48 PROFESSOR OF PHYSICS AM PROFESSOR OF PHYSICS [facility] LAB - URINE ORDERABLES Performing Organization Address City/State/ZIP Code Phon e Number MISYS HCG qualitative urine (05/23/2005 9:20 AM PROFESSOR OF PHYSICS) P athologist Signature HCG Qual Urine Negative NEG MISYS Specimen Anatomical Collection Method Collection Time Receive d Time (Source) Location / / Volume Laterality 05/23/2005 9:20 AM 6 7:48 PROFESSOR OF PHYSICS AM PROFESSOR OF PHYSICS [facility] LAB - URINE ORDERABLES Performing Organization Address City/[facility] Code Phon e Number MISYS (ABNORMAL) Hemogram differential and platelet (05/23/2005 7:35 AM PROFESSOR OF PHYSICS) [facility] Method Time Signature MCV 84 77 [...] Volume Laterality 05/23/2005 7:35 AM 6 7:48 PROFESSOR OF PHYSICS AM PROFESSOR OF PHYSICS [facility] LAB - BLOOD ORDERABLES Performing Organization Address City/State/[facility] Code Phon e Number MISYS Basic metabolic panel (05/23/2005 7:35 AM PROFESSOR OF PHYSICS) P athologist Signature Sodium 141 133 - [...] Volume Laterality 05/23/2005 7:35 AM 6 7:48 PROFESSOR OF PHYSICS AM PROFESSOR OF PHYSICS [facility] LAB - BLOOD ORDERABLES Performing Organization Address City/State/ZIP Code Phon e Number MISYS documented in this encounter Visit Diagnoses Not on filedocumented in this encounter
--- OUTSIDE RECORDS SUMMARY | 2022-02-18 11:20 | XMS_ITS | Encounter Summary ---
:1985 Author Organization [place] Address [address] [place] [address] Care Team Providers Name Role Phone Unavailable Primary Care Provider Unavailable Encounter Details Date Type Department Care Team Description 05/23/2005 Emergency room [facility] EMERGENCY PHYSIC [place] [address] [place] [address] (Wo rk) Social History Tobacco Use Types Packs/Day Years Used Date Smoking Tobacco: Never Assessed Sex Assigned at Date Recorded Not on file documented as of this encounter Progress Notes Interface, Seasonal Clerk - 05/24/2005 10:20 PM RADIOLOGIC TECHNOLOGY PROGRAM DIRECTOR FINAL CHIEF COMPLAINT: Left lower quadrant pain. [...] home. Tylenol No. 3 for discomfort, Motrin [id number]. Follow up with primary care physician in 3-5 days, clear liquids x8 hours and advance diet as tolerated. Return to emergency department if symptoms get worse. Electronically signed on 05/24/2005 22:19 by GLORY KRAFT MD MT: [id number] Name: CARLEY CHAN MRN: -[id number] Account: [id number] : 1985 Visit Date: 05/23/2005 Document: [id number] cc: [facility] OLOGIC TECHNOLOGY PROGRAM DIRECTOR Interface, Seasonal Clerk - 05/24/2005 3:26 PM RADIOLOGIC TECHNOLOGY PROGRAM DIRECTOR PRELIMINARY CHIEF COMPLAINT: Left lower quadrant pain. [...] home. Tylenol No. 3 for discomfort, Motrin [id number]. Follow up with primary care physician in 3-5 days, clear liquids x8 hours and advance diet as tolerated. Return to emergency department if symptoms get worse. GLORY KRAFT MD MT: [id number] Name: CARLEY CHAN Account: [id number] : 1985 Visit Date: 05/23/2005 Document: [id number] cc: [facility] OLOGIC TECHNOLOGY PROGRAM DIRECTOR documented in this encounter Plan of Treatment Not on filedocumented as of this encounter Visit Diagnoses Not on filedocumented in this encounter
--- OUTSIDE RECORDS SUMMARY | 2022-02-18 11:20 | XMS_ITS | Encounter Summary ---
:1985 Author Organization [facility] Address [address] [place] [address]. [place] [address] Care Team Providers Name Role Phone Unavailable Primary Care Provider Unavailable Encounter Details Date Type Department Care Team Description 07/21/2004 Historic Senior Ui Designer INTERFACED REPORT Ilana Levy Social History Tobacco Use Types Packs/Day Years Used Date Smoking Tobacco: Never Assessed Sex Assigned at Date Recorded Not on file documented as of this encounter Progress Notes Interface, Senior Ui Designer - 02/12/2011 3:18 AM MERCHANDISING PROFESSOR : [birth year] CHIEF COMPLAINT: Ankle and knee [...] EPIDEMIOLOGIC HISTORY: Patient attends school. They visited [place] in May 2004. PHYSICAL EXAMINATION: VITAL SIGNS: [...] surgeon to follow and receive appointment. [id number] KELILE LEVY MD MT: Document: [id number] CC: KELLIE LEVY MD [place], [place] Name: MR#: CARLEY CHAN -23 EMERGENCY ROOM ENCOUNTER Page 2 of 2 LCN: MARY JANE DSC: 07/21/2004 [place], [place] Name: MR#: CARLEY CHAN -23 : Admit Date: Account #: 1985 07/21/2004 [id number] Doctor: KELLIE LEVY MD EMERGENCY ROOM ENCOUNTER Page 1 of 2 HANDISING PROFESSOR documented in this encounter Plan of Treatment Not on filedocumented as of this encounter Visit Diagnoses Not on filedocumented in this encounter
--- OUTSIDE RECORDS SUMMARY | 2022-02-18 11:20 | XMS_ITS | Encounter Summary ---
:1985 Author Organization [facility] Address [address] [place] [address] Care Team Providers Name Role Phone Gina Bautista PA-C Primary Care Provider Gina Kee PA-C Unavailable Unavailabl e Gina Bautista PA-C Unavailable Unavailabl Gina Marrero PA-C Unavailable Unavailabl e Reason for Visit Reason Comments Cough x 3-4 days Derm Problem x 1 day Encounter Details Date Type Department Care Team Description 01/31/2015 Office Visit [facility] Gina Bautista litis and abscess of leg (Primary Dx); Clinic Jigna Vance PA-C Upper respiratory tract infection, unspe cified upper respiratory infection [address] NO INFO [place], [place] AVAILABLE [phone] 01/23/2022 Social History Tobacco Use Types Packs/Day Years Used Date Smoking Tobacco: Never Smokeless Tobacco: Never Alcohol Use Standard Drinks/Week Comments Yes 0 (1 standard drink = 0.6 oz pure alcoho l) Sex Assigned at Date Recorded Not on file documented as of this encounter Last Filed Vital Signs Vital Sign [facility] Time Taken Comments Blood Pressure 108/56 01/31/2015 3:14 PM WOOD HANDLER Pulse 82 01/31/2015 3:14 PM WOOD HANDLER Temperature 36.7 ??C (98.1 ??F) 01/31/2015 3:14 PM WOOD HANDLER Respiratory Rate 18 01/31/2015 3:14 PM WOOD HANDLER Oxygen Saturation 99% 01/31/2015 3:14 PM WOOD HANDLER Inhaled Oxygen Concentration - - Weight 82.4 kg (181 lb 9.6 oz) 01/31/2015 3:14 PM WOOD HANDLER Height 167.6 cm (5' 6) 01/31/2015 3:14 PM WOOD HANDLER Body Mass Index 29.31 01/31/2015 3:14 PM WOOD HANDLER documented in this encounter Progress Notes Gina [...] the plan of care. Gina Bautista PA-C [facility] HANDLER documented in this encounter Nursing Notes Monica [...] phone number for results from this visit [phone] Marianne Tony CMA (AAMA) 01/31/2015 3:16 PM HANDLER documented in this encounter Plan of Treatment [...] documented as of this encounter Care Teams Road Service Locksmith Relationship Specialty Start Date End Date Gina Bautista PCP - General Physician Machine Rigger 5 09/03/21 Gina Key PCP - Assigned PCP 01/12/15 05/11/18 PAJudi NO INFO AVAILABLE 01/23/2022 Gina Bautista Physician Machine Rigger 01/31/15 Gina Key, Assigned PCP 01/12/15 PAJudi NO INFO AVAILABLE 01/23/2022 documented as of this encounter
--- OUTSIDE RECORDS SUMMARY | 2022-02-18 11:20 | XMS_ITS | Encounter Summary ---
:1985 Author Organization [place] Address [address] [place] [address] Care Team Providers Name Role Phone Unavailable Primary Care Provider Unavailable Encounter Details Date Type Department Care Team Description 05/23/2005 Results Only [facility] Results EMERGENCY PHYSI [facility] [address] [place] [address] (Wo rk) Social History Tobacco Use Types Packs/Day Years Used Date Smoking Tobacco: Never Assessed Sex Assigned at Date Recorded Not on file documented as of this encounter Plan of Treatment Not on filedocumented as of this encounter Procedures Procedure Name Priority Date/Time Associated Diagnosis Comme [facility] US PELVIC Routine 05/23/2005 10:02 AM Results for this NON-OB, COMPLETE PLANT OPERATOR CONTROL ROOM OPERATOR procedure a re in the results section. documented in this encounter Results SONO PELVIS COMPLETE (05/23/2005 10:02 AM PLANT OPERATOR CONTROL ROOM OPERATOR) Anatomical Region Laterality Modality Other Specimen (Source) Anatomical Collection Method Collection Time Re ceived Time Location / / Volume Laterality 05/23/2005 10:02 AM PLANT OPERATOR CONTROL ROOM OPERATOR Impressions 05/26/2005 10:39 AM PLANT OPERATOR CONTROL ROOM OPERATOR PELVIC ULTRASOUND WITH TRANSVAGINAL - ?? TECHNIQUE: With transvaginal imaging to better evaluate the adnexa. ?? FINDINGS: Normal endometrium of 5 mm. No rmal ovaries. No free fluid seen. The exam is otherwise unremarkable . [facility] SPECIAL IMAGING STUDIES documented in this encounter Visit Diagnoses Not on filedocumented in this encounter
--- OUTSIDE RECORDS SUMMARY | 2022-02-18 11:20 | XMS_ITS | Encounter Summary ---
:1985 Author Organization [facility] Address [address] [place] [id number] Care Team Providers Name Role Phone Gina Palumbo PA-C Primary Care Provider Gina Kee PA-C Unavailable Unavailabl e Gina Palumbo PA-C Unavailable Unavailabl Gina Marrero PA-C Unavailable Unavailabl e Reason for Visit Reason Comments Physical Annual Physical with PAP Encounter Details Date Type Department Care Team Description 04/25/2015 Office Visit [facility] Gina Palumbo for routine adult physical exam with abnormal findings (Primary Dx); Clinic Jigna Vance PA-C Overweight; [id number] [place] NO INFO Hypothyroidis m due to [...] Comments Blood Pressure 126/62 04/25/2015 1:02 PM ERGONOMIC SPECIALIST Pulse 80 04/25/2015 1:02 PM ERGONOMIC SPECIALIST Temperature 36.6 ??C (97.9 ??F) 04/25/2015 1:02 PM ERGONOMIC SPECIALIST Respiratory Rate 16 04/25/2015 1:02 PM ERGONOMIC SPECIALIST Oxygen Saturation 100% 04/25/2015 1:02 PM ERGONOMIC SPECIALIST Inhaled Oxygen Concentration - - Weight 82.1 kg (181 lb) 04/25/2015 1:02 PM ERGONOMIC SPECIALIST Height 167 cm (5' 5.75) 04/25/2015 1:02 PM ERGONOMIC SPECIALIST Body Mass Index 29.44 04/25/2015 1:02 PM ERGONOMIC SPECIALIST documented in this encounter Patient Instructions Patient [...] months for an exam and cleaning. ?? NOMIC SPECIALIST documented in this encounter Progress Notes Gina [...] Maxwell and colleagues,with an educational kenia from [employer].) 04/25/2015 01/31/2015 Q1: Little interest or pleasure [...] LDL, TRIG, CHOLHDLRATIO, NHDL in the last 86535 hours. Reviewed orders with patient. Reviewed health maintenance and updated orders accordingly - Yes Mammo Decision Support: Mammogram not appropriate for this patient based on age. Last Mammo:No results found. History of abnormal Pap smear: NO - age 21-29 PAP every 3 years recommended All Histories reviewed and updated in [facility]. 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 Patient Active [...] Americans, 2010 [employer] [facility] documented in this encounter Nursing Notes Monica [...] phone number for results from this visit [phone] OK to leave message Marianne Chavo CAMPOS (AAMA) 04/25/2015 1:03 PM NOMIC SPECIALIST documented in this encounter Miscellaneous Notes Addendum Note - Gina Palumbo PA-C - 04/27/2015 8:25 AM ERGONOMIC SPECIALIST Addended by: GINA PALUMBO on: 04/27/2015 08:25 AM Modules accepted: Orders NOMIC SPECIALIST documented in this encounter Plan of Treatment Not on filedocumented as of this encounter Procedures Procedure Name Priority Date/Time Associated Comments Diagnosis UA MACROSCOPIC WITH Routine 04/25/2015 12:44 Encounter for Res ults for this REFLEX TO MICROSCOPIC PM ERGONOMIC SPECIALIST routine adult proce dure are in AND CULTURE physical exam with the resul ts abnormal findings section. documented in this encounter Results (ABNORMAL) Iron and iron binding capacity (04/27/2015 11:50 AM ERGONOMIC SPECIALIST) [facility] Time Signature Iron 13 (L) 35 - 180 [place] ug/dL [facility] Iron Binding 619 (H) 240 - 430 [place] Cap ug/dL [facility] Iron Saturation 2 (L) 15 - 46 % [place] Index [facility]INICS [facility] Specimen Anatomical Collection Method Collection Time Receive d Time (Source) Location / / Volume Laterality Blood specimen 04/27/2015 11:50 6 (specimen) AM ERGONOMIC SPECIALIST 11:51 AM ERGONOMIC SPECIALIST Gina Palumbo PA-C LAB - BLOOD ORDERABLES Performing Organization Address City/[facility]/ZIP Code Phon e Number [facility] [address] [place] [phone] (ABNORMAL) Ferritin (04/27/2015 11:50 AM ERGONOMIC SPECIALIST) P athologist Signature Ferritin 2 (L) 12 - 150 [facility] ng/mL [facility] Specimen Anatomical Collection Method Collection Time Receive d Time (Source) Location / / Volume Laterality Blood specimen 04/27/2015 11:50 6 (specimen) AM ERGONOMIC SPECIALIST 11:51 AM ERGONOMIC SPECIALIST Gina Palumbo PA-C LAB - BLOOD ORDERABLES Performing Organization Address City/[facility]/ZIP Code Phon e Number [facility] [address] [place] [phone] (ABNORMAL) TSH with free T4 reflex (04/26/2015 8:26 AM ERGONOMIC SPECIALIST) P athologist Signature TSH 7.92 (H) 0.40 - [place] [facility] 4.00 mU/L [facility] Specimen Anatomical Collection Method Collection Time Receive d Time (Source) Location / / Volume Laterality Blood specimen 04/26/2015 8:26 AM 016 8:27 (specimen) ERGONOMIC SPECIALIST AM ERGONOMIC SPECIALIST Gina Palumbo PA-C LAB - BLOOD ORDERABLES Performing Organization Address City/[facility]/ZIP Code Phon e Number [facility] [address], [place] [address] (ABNORMAL) Comprehensive metabolic panel (04/26/2015 8:26 AM ERGONOMIC SPECIALIST) [facility] gist Method Time Signature Sodium 140 133 - 144 [place] mmol/L [facility] Potassium 4.1 3.4 - 5.3 [place] mmol/L [facility] Chloride 109 94 - 109 [place] mmol/L [facility] Carbon Dioxide 23 20 - 32 [place] mmol/L [facility] Anion Gap 8 3 - 14 [place] mmol/L [facility] Glucose 87 70 - 99 [place] mg/dL [facility] Urea Nitrogen 10 7 - 30 [place] mg/dL [facility] Creatinine 0.74 0.52 - [place] 1.04 [facility] mg/dL [facility] GFR Estimate >90 >60 [place] Non GFR Calc mL/min/1. CLINICS 7m2 [facility] GFR Estimate If >90 >60 [place] Black GFR Calc mL/min/1. CLIN ICS 7m2 [facility] Calcium 8.3 (L) 8.5 - [place] 10.1 [facility] mg/dL [facility] Bilirubin Total 0.5 0.2 - 1.3 [place] mg/dL [facility] Albumin 3.8 3.4 - 5.0 [place] g/dL [facility] Protein Total 7.4 6.8 - 8.8 [place] g/dL [facility] Alkaline 71 40 - 150 [place] Phosphatase U/L [facility] ALT 19 0 - 50 [place] U/L [facility] AST 14 0 - 45 [place] U/L [facility] Specimen Anatomical Collection Method Collection Time Receive d Time (Source) Location / / Volume Laterality Blood specimen 04/26/2015 8:26 AM 016 8:27 (specimen) ERGONOMIC SPECIALIST AM ERGONOMIC SPECIALIST Gina Palumbo PA-C LAB - BLOOD ORDERABLES Performing Organization Address City/State/ZIP Code Phon e Number [facility] [address] [place] [address] (ABNORMAL) CBC with platelets (04/26/2015 8:26 AM ERGONOMIC SPECIALIST) athologist Signature WBC 4.7 4.0 - 11.0 [place] 10e9/L [facility] RBC Count 4.41 3.8 - 5.2 [place] 10e12/L [facility] Hemoglobin 8.4 (L) 11.7 - 15.7 [place] g/dL [facility] [place] Comment: Results confirmed by repeat mónica t Hematocrit 29.1 (L) 35.0 - 47.0 % [facility] [place] MCV 66 (L) 78 - 100 fl [facility] [place] MCH 19.0 (L) 26.5 - 33.0 pg [facility] [place] MCHC 28.9 (L) 31.5 - 36.5 g/dL [place] [facility] Comment: Results confirmed by repeat mónica t RDW 16.7 (H) 10.0 - 15.0 % [facility] Platelet Count 321 150 - 450 10e9/L [facility] Specimen Anatomical Collection Method Collection Time Receive d Time (Source) Location / / Volume Laterality Blood specimen 04/26/2015 8:26 AM 016 8:27 (specimen) ERGONOMIC SPECIALIST AM ERGONOMIC SPECIALIST Gina Palumbo PA-C LAB - BLOOD ORDERABLES Performing Organization Address City/State/ZIP Code Phon e Number [facility] [address] [place] [address] [phone] LIPID REFLEX TO DIRECT LDL PANEL (04/26/2015 8:26 AM ERGONOMIC SPECIALIST) P athologist Signature Cholesterol 109 <200 mg/dL [facility] Triglycerides 70 <150 mg/dL [facility] Comment: Fasting specimen HDL Cholesterol 54 >49 mg/dL [place] [facility] CS [facility] LDL Cholesterol Calculated 41 <100 mg/dL [facility] Comment: Desirable: <100 mg/dl Non HDL Cholesterol 55 <130 mg/dL [facility] Specimen Anatomical Collection Method Collection Time Receive d Time (Source) Location / / Volume Laterality Blood specimen 04/26/2015 8:26 AM 016 8:27 (specimen) ERGONOMIC SPECIALIST AM ERGONOMIC SPECIALIST Gina Palumbo PA-C LAB - BLOOD ORDERABLES Performing Organization Address City/[facility]/ZIP Code Phon e Number [facility] [address] [place] [address] UA reflex to Microscopic and Culture (04/25/2015 12:44 PM ERGONOMIC SPECIALIST) [facility] gist Method Time Signature Color Urine Yellow [place] [facility] [place] Appearance Urine Clear [facility] [place] Glucose Urine Negative NEG mg/dL [place] [facility] [place] Bilirubin Urine Negative NEG [place] [facility] [place] Ketones Urine Negative NEG mg/dL [facility] [place] Specific [place] 1.025 1.003 - [place] Urine 1.035 [facility] [place] Blood Urine Negative NEG [facility] [place] pH Urine 5.5 5.0 - 7.0 [place] pH [facility] [place] Protein Albumin Negative NEG mg/dL [place] Urine [facility] [place] Urobilinogen 0.2 0.2 - 1.0 [place] Urine EU/dL [facility] [place] Nitrite Urine Negative NEG [facility] [place] Leukocyte Negative NEG [place] Esterase Urine [facility] [place] Source Midstream [place] Urine [facility] [place] Specimen Anatomical Collection Method Collection Time Receive d Time (Source) Location / / Volume Laterality Urine specimen 04/25/2015 12:44 6 (specimen) PM ERGONOMIC SPECIALIST 12:45 PM ERGONOMIC SPECIALIST Gina Palumbo PA-C LAB - URINE ORDERABLES Performing Organization Address City/State/ZIP Code Phon e Number [facility] [address] [place], [place] [address] documented in this encounter [...] documented as of this encounter Care Teams Draftsperson Relationship Specialty Start Date End Date Gina Palumbo PCP - General Physician Picture Copyist 5 09/03/21 Gina Key PCP - Assigned PCP 01/12/15 05/11/18 [place] NO INFO AVAILABLE 01/23/2022 Gina Palumbo, Physician Picture Copyist 01/31/15 Gina Key, Assigned PCP 01/12/15 [place] NO INFO AVAILABLE 01/23/2022 documented as of this encounter
--- OUTSIDE RECORDS SUMMARY | 2022-02-18 11:20 | XMS_ITS | Encounter Summary ---
:1985 Author Organization [facility] Address [address] [place] [phone] Care Team Providers Name Role Phone Gina Bautista PA-C Primary Care Provider Gina Kee PA-C Unavailable Unavailabl e Gina Bautista PA-C Unavailable Unavailabl Gina Marrero PA-C Unavailable Unavailabl e Reason for Visit Reason Comments Panel Management Needs PAP Encounter Details Date Type Department Care Team Description 03/13/2015 Documentation Only [facility] Gina Bautista Panel Management Clinic Jigna Vance PA-C (Needs PAP ) [id number] AVAILABLE [place] 01/23/2022 [id number] Social History Tobacco Use Types Packs/Day Years [...] Marianne Tony CMA (AAMA) 03/13/2015 3:48 PM RIDE OPERATOR documented in this encounter Plan of Treatment Not on filedocumented as of this encounter Visit Diagnoses Not on filedocumented in this encounter Additional Health Concerns Assessment Noted Time PHQ-9 Depression Total Score: 13 02/01/2015 7:29 AM CS T documented as of this encounter Care Teams Outside Solar Sales Consultant Relationship Specialty Start Date End Date Gina Bautista PCP - General Physician Pig Breeder 5 09/03/21 Gina Key PCP - Assigned PCP 01/12/15 05/11/18 [place] NO INFO AVAILABLE 01/23/2022 Gina Bautista, Physician Pig Breeder 01/31/15 Gina Key, Assigned PCP 01/12/15 [place] NO INFO AVAILABLE 01/23/2022 documented as of this encounter
[2022-02-18 14:48] LABS: Free T4 Free Thyroxine* 0.82 ng/dL (0.70-1.85)
== END 2022-02-18 11:00 | disposition home or self-care (01) ==
PROVIDERS: PCP Internal Medicine; Visit Provider Obstetrics & Gynecology
DX: E03.9 Hypothyroidism, unspecified (principal)
CPT/HCPCS: 36415; 84439; 84443

== ENCOUNTER 2022-02-25 15:50 | Outpatient (CLI) | payer BC, SELFPAY ==
--- NOTE | 2022-02-25 16:00 | CRLHL7_ITS ---
For Patients: As a result of the Century Cures Act, medical imaging exams and procedure reports are released immediately into your electronic medical record. You may view this report before your referring provider. If you have questions, please contact your health care provider. INDICATION: deceleration on NST, bicornuate ut, check growth and BPP TECHNIQUE: Real time szymanski scale imaging of the fetus was performed. COMPARISON: 01/14/2022 FINDINGS: Sonographic imaging demonstrates a single living intrauterine gestation. Fetus demonstrates a regular cardiac rate of 127 beats per minute. Fetus has a vertex position. The placenta lies posteriorly. Amniotic fluid volume appears normal and there is a single deepest pocket of 3.4 cm. The estimated weight is 2677gm which lies at the 52nd %. On the prior OB ultrasound dated 01/14/2022 the estimated weight was at the 93rd percentile. BPD 95th percentile. HC 52nd percentile. AC 73rd percentile. FL 7th percentile. The fetus was active and demonstrated normal breathing movements. There was normal flexion and extension of the trunk and extremities. IMPRESSION: Normal biophysical profile score 8/8. Sonographic gestational age 35 weeks 6 days and sonographic due date 03/26/2022. Good correlation with dates. Normal interval growth. Estimated weight 52nd percentile. Abdominal circumference 73rd percentile. Dictated by Ethan Bah MD @ 02/26/2022 10:38:26 AM (Electronically Signed)
== END 2022-02-25 15:51 | disposition home or self-care (01) ==
PROVIDERS: PCP Internal Medicine; Visit Provider Obstetrics & Gynecology
DX: Z34.93 Encounter for supervision of normal pregnancy, unspecified, third trimester (principal); Z3A.35 35 weeks gestation of pregnancy
CPT/HCPCS: 59025; 76816; 76819; 82239; 84450; 84460; 87081; 87653; 99213

== ENCOUNTER 2022-03-04 12:50 | Outpatient (CLI) | payer BC, SELFPAY ==
--- NOTE | 2022-03-04 13:00 | CRLHL7_ITS ---
For Patients: As a result of the Century Cures Act, medical imaging exams and procedure reports are released immediately into your electronic medical record. You may view this report before your referring provider. If you have questions, please contact your health care provider. INDICATION: Third trimester scan, evaluate growth. Concern for macrosomia. COMPARISON: 02/25/2022 TECHNIQUE: Real time szymanski scale imaging of the fetus was performed. FINDINGS: Sonographic imaging demonstrates a single living intrauterine gestation. Fetus demonstrates a regular cardiac rate of 137 beats per minute. Fetus has a vertex position. The placenta lies posteriorly. Amniotic fluid volume appears normal and there is a single deepest vertical pocket: 4.1 cm. The estimated weight is 2725gm which lies at the 34th %. On the prior OB ultrasound exam dated 02/25/2022 the estimated weight was at the 52nd%. BPD greater than 97th percentile. HC 38th percentile. AC 43rd percentile. FL 3rd percentile. The HC/AC ratio measures 1.03 range (0.92-1.07). IMPRESSION: Sonographic gestational age 36 weeks 2 days and sonographic due date 03/30/2022. Good correlation would dates and normal interval growth. Estimated weight 34th percentile. Abdominal circumference 43rd percentile. BPD greater than 97th percentile. FL 3rd percentile. Dictated by Ethan Bah MD @ 03/05/2022 12:37:35 PM (Electronically Signed)
== END 2022-03-04 12:51 | disposition home or self-care (01) ==
LOC: US 12:50
PROVIDERS: PCP Internal Medicine; Visit Provider Physician Assistant
DX: Z34.93 Encounter for supervision of normal pregnancy, unspecified, third trimester (principal); Z3A.36 36 weeks gestation of pregnancy
CPT/HCPCS: 76816

== ENCOUNTER 2022-03-09 22:49 | Outpatient (CLI) | payer BC, SELFPAY | END 2022-03-09 22:50 | disposition home or self-care (01) | PROVIDERS: PCP Internal Medicine; Visit Provider Obstetrics & Gynecology | DX: O80 Encounter for full-term uncomplicated delivery (principal); Z3A.37 37 weeks gestation of pregnancy; Z37.0 Single live birth | CPT/HCPCS: A0425; A0429 ==

== ENCOUNTER 2022-03-09 23:13 | Inpatient (IN) | payer BC, SELFPAY ==
[2022-03-09] VITALS (8 sets, daily range): BP systolic 80–129; BP diastolic 40–100; PULSE 71–126; RESP 18; TEMP 36.6; O2SAT 92–99
--- NOTE | 2022-03-09 23:40 | W.PM.LDBA ---
Subjective History of Present Illness Date Seen: 03/09/22 Narrative: Carley is a 36yo G8 now P4 at 37 0/7 weeks gestation being admitted to Labor and Delivery for care. She had a precipitious at home in her garage, baby delivered by her . Her full history and physical was dictated by [] on []. Please see this for details. [] OB - H&P: Exam Physical Exam: Vital signs: Pulse BP 126 H 129/100 H 03/09/22 23:25 03/09/22 23:25
--- NOTE | 2022-03-09 23:42 | P.OBHP_ITS ---
OB - H&P: HPI Labor/Induction History of Present Illness Date Seen: 03/09/22 Chief Complaint: Home , here for assessment and care Chief complaint: Maternity : 8 Para: 4 Narrative: Carley is a 36yo G8 now P4 at 37 0/7 weeks gestation being admitted to Labor and Delivery for care. She had a precipitous at home in her garage, baby delivered by her . Patient felt a pop and subsequent SROM occur at 2225 pm of clear fluid. She called Labor and Delivery at 1028. She was instructed to call an ambulance if she delivered or felt pressure before getting to the hospital. The female was born precipitously in her car with delivering at 1041, per mom's report. Ambulance arrived shortly after and transported patient to the hospital. Placenta delivered in route to the hospital at approximately 11 pm. Patient arrived to the unit, with , at 2320. Patient was stable on arrival. CNM at bedside for exam, pelvic exam done to assess for lacerations. None identified. Bleeding at that time was stable. Approximately 30 minutes later, she had a large gush of blood followed by large clots expressed with fundal massage. Patient was symptomatic with dizziness, lightheaded, ringing in her ears, clammy, and pale. BP dropped, hemorrhage cart brought to room and CNM called to bedside to assess. IV started with LR and Pitocin. IM Methergine given. CBC drawn, previous hgb at 36 weeks was 9.6. Bleeding improved following fundal massage, monitored for an additional 15 minutes with minimal bleeding. Will continue to observe, symptoms resolved with treatment. Initial EBL on arrival was 50 mL here at hospital, measured QBL with episode was 420 mL. It is unknown how much bleeding occurred at home or in the ambulance. Labor Analgesia:? None ? Pitocin:?Yes, w/ increased bleeding ? SROM and Labor onset: 2225 ? by : 2241, no complications reported ? Placenta delivered spontaneously and complete at 2300 with a 3 vessel cord in ambulance. Assessed on arrival, appears intact. Velamentous cord insertion noted. Sent to pathology for precipitous/home . ? Mother and were stable after delivery. ? Lacerations:? Intact ? Blood loss: 50+420 mL. Total prior to hospital unknown. Blood loss measurement type: EBL/QBL History of Present Dating criteria: based on 1st trimester US only care: good care Ultrasounds: normal 1st trimester US, normal mid trimester US and abnormal US findings (See problem list) Narrative: OB PROBLEM LIST 1. BMI 34. HgbA1C 5.9, prediabetic at NOB Referral to nutrition, diabetes education In lieu of 3 hr GTT at 20 and 28 weeks, in light of hx of gastric bypass, will do one week of sugar monitoring prior to each of these visits. 1 week of glucose monitoring, 09/03 readings abnormal or 21%. Discusses suspected GDM and recommended continued monitoring x1 week 01/07/22: just started monitoring 01/21/22: had one week of blood sugar values. Only 2 elevated, continue monitoring for one more week and send portal message with values Per patient, she completed an additional week of testing and reviewed with Dr. Liu to told her she no longer needed to continue testing, No GDM diagnosis 2. Hx of multiple miscarriages Started on vaginal progesterone early in , to stop at 12 weeks. Antiphospholipid antibody panel ordered 09/04/21: negative 3. Hx of X 2, 35 & 36 weeks. Diagnosed with slight bicornate uterus & cervical insufficiency. Cervical length at 16 weeks, Q 2 weeks until 24 weeks * 15 weeks, 3 days: Cervical length 4.4 cm * 16 weeks: cervical length 4.7 cm * 18 weeks, 2 days: Cervical length of 4.1 cm * 20 weeks, 2 days: Cervical length 3.2 * 24 weeks, 2 days: Cervical length: 3.3 cm Weekly progesterone starting at 16 weeks 4. Hx of cholestasis with 3rd , IOL at 38 weeks. Baseline bile acids and LFTs 09/04/21: entirely normal * 02/25/22 Repeated due to itching palms and feet: Bile acids 7, AST 28, ALT 29: all normal. 5. Hx of macrosomic infant and shoulder dystocia, 9 lb 3 oz at 38.3 weeks. 60 seconds, requiring Kellie, suprapubic & de la fuente US for EFW at 36 weeks 03/04/2022: Vtx. SDP 4.1cm. EFW: 2725 g, 6 lb 0 oz, 34%. BPD >97 %, HC 38%, AC 43%, FL 3%. 6. Hx of precipitous X 2 7 Hx of depression. Remains stable on gabapentin (for sleep) & venlafaxine ER. Folic acid increased to 5 mg daily due to gabapentin use. 8. Hypothyroid. On levothyroxine 175 mcg at conception. TSH checks Q trimester and 4 wks after dose increase: NOB: TSH 24.7, free T4 0.61. Dose increased to 225 mcg. 12 wks: TSH 0.088. Dose decreased to 200 mcg. 16 weeks: TSH 0.105 (low), free T4 1.25 (normal). Dose decreased to 175 mcg daily. Repeat TFTs at 20 weeks: 0.200. Decrease to 150 mcg daily. 12/17/21: TSH,.192L, free T4 .083. Dose decreased to 125mcg 30 wks (01/21/22): TSH 4.6, free T4 0.65. Increase levothyroxine to 150 mcg. Repeat TSH and free T4 at 34 weeks. 34 wks (02/18/22): TSH 8.650, free T4 0.82. Increase levothyroxine to 175 mcg. Repeat TSH at 38 weeks. 9. Hx of gastric bypass. Has tolerated 1 hr GTT before but never had 3 hr GTT. Thus plan for fingersticks for monitoring as detailed above. 10. Anemia noted in NOB labs 9.9. Will try Celebrate iron tabs. May need script for liquid iron or IV iron infusions. Repeat Hb at 12 weeks: 9.2. Increase iron to BID. Repeat Hb in 4 weeks (10/13/21): 9.4. To arrange iron infusions. 10/29/21: Iron infusions had not yet been arranged. Discussed with the triage and they are following up 11/12/21: Hgb 7.9 Issues w/ insurance, now resolved. Iron infusions subsequently started. 12/10/21: 11.1 01/07/22: 11.0 02/25/22: 9.6: reviewed w/ patient on 03/04/22 visit ordered Venofer infusion again. 11. Active LOGAN noted at NOB, small. Repeat US 10 weeks: LOGAN 2.3 X 0.3 X 0.3 cm. Repeat 09/17/21: Resolution of previously noted subchorionic hemorrhage. Retroplacental hemorrhage is now present measuring 2.9 x 2.7 x 1.2 cm. Repeat US 10/09/21: Continuing retroplacental hemorrhage measuring 3.3 x 0.8 x 2.5 cm. 11/12/21: Placental ron is present measuring 1.7 x 1.0 cm Growth US at 32 weeks: see US 28 weeks, discussed with Guillen, repeat US EFW 36 weeks 12. Slight bicornuate uterus noted in previous records. US for EFW at 28 weeks. Order placed 01/07/22 to be done with next [place]: 01/14- EFW 93%, BPD 93%, HC 79%, AC 97%, FL 8%. JESSICA 21.4 * Repeat growth at 36 weeks: Vtx. SDP 4.1cm. EFW: 2725 g, 6 lb 0 oz, 34%. BPD >97 %, HC 38%, AC 43%, FL 3%. COVID: declines Flu: TDap: 02/04/22 Review of Systems Status of ROS: Reports: 6 or more systems reviewed and unremarkable except as noted in History and below Meds Home Medications and Allergies Home Medications Medication Instructions Recorded Confirmed Type acetaminophen 325 mg tablet 325 mg PO PRN 09/04/21 03/04/22 History folic acid 1 mg tablet 1 mg PO QDAY 09/04/21 03/04/22 History gabapentin 300 mg capsule 300 mg PO DAILY 09/04/21 03/04/22 History mecobalamin (vitamin B12) 1,000 1,000 mcg PO QDAY 09/04/21 03/04/22 History mcg chewable tablet (B12 Active) prenat.vits,marci,qso-zvin-xtaen 1 tab PO QDAY 09/04/21 03/04/22 History venlafaxine 150 mg 150 mg PO DAILY 09/04/21 03/04/22 History capsule,extended release 24 hr diphenhydramine HCl 25 mg capsule 25 mg PO QHS PRN 02/18/22 03/04/22 History (Benadryl) Allergies Allergy/AdvReac Type Severity Reaction Status Date / Time No Known Allergies Allergy Verified 03/04/22 13:36 OB - H&P: Exam Physical Exam: Vital signs: Pulse BP 126 H 129/100 H 03/09/22 23:25 01/01/23 23:25 Narrative: GENERAL APPEARANCE:? normal affect, alert, no distress? MOOD:? appropriate? CHEST:? clear to auscultation? HEART:? regular rate and rhythm? ABDOMEN:? soft, non-tender the uterine fundus is At Umbilicus, Midline and is appropriate for the stage of recovery.?Fundus is 2 below umbilicus following bleeding episode and fundal massage PERINEUM:? mild edema of the perineum. Intact perineum with assessment.? EXTREMITIES:? normal and no edema OB - Results Labs Labs: CBC, Fibrinogen, and Type and Screen pending. OB - Problem Based A/P Additional Plan (1) care and examination immediately after delivery: Status: Acute (2) Anemia: Status: Acute (3) Bicornuate uterus: Status: Acute (4) History of delivery: Status: Acute (5) Major depressive disorder: Status: Acute (6) Obesity with body mass index greater than 30: Status: Acute (7) History of gastric bypass: Status: Acute Plan Routine Care. Continue to monitor bleeding. Discussed iron transfusion before discharge. Discussed possibility of blood if she becomes symptomatic. CBC, type and screen, and fibrinogen pending. Placenta to pathology. Delivery/Labor/Induction Plan Plan: other (Routine posptarum Care)
[2022-03-09] MEDS: METHYLERGONOVINE MALEATE 0.2 MG/ML INJ IM (23:55)
[2022-03-09] MEDS: OXYTOCIN 30 unit/500 ML in NS 30 UNIT/500 ML BAG 350 UNIT IVPB (23:55)
[2022-03-10] VITALS (32 sets, daily range): BP systolic 114–165; BP diastolic 58–85; PULSE 59–93; RESP 14–18; TEMP 36.5–36.7; O2SAT 98–100; BMI 38.4
[2022-03-10 00:54] LABS: Basophils Percent Auto 0.2 % (0.0-3.0); Eosinophils Percent Auto 1.6 % (0.0-7.0); Hematocrit 31.1 % (33.0-51.0); Hemoglobin* 9.7 gm/dL (12.0-16.0); Immature Granulocytes Pct Auto 0.5 %; Lymphocytes Percent Auto 33.2 % (20-44); Mean Corpuscular HGB Conc 31 gm/dL (32-36); Mean Corpuscular Hemoglobin 25 pg (26-34); Mean Corpuscular Volume 81 fL (80-100); Monocytes Percent Auto 4.5 % (0.0-11.0); Platelet Count* 287 K/uL (140-440); RDW Coefficient of Variation % 15.6 % (11.5-15.5); Red Blood Count 3.86 m/uL (4.00-5.20)
[2022-03-10 00:55] LABS: Slide Review Reflex No
[2022-03-10 00:59] LABS: Fibrinogen* 447 mg/dL (200-450)
[2022-03-10] MEDS: LACTATED RINGERS 1000 ML 1,000 ML 900 ML IV (01:14)
[2022-03-10 03:54] LABS: SARS PCR* Negative SARS-CoV-2 (Negative)
[2022-03-10] MEDS: ACETAMINOPHEN 500 MG TABLET 1000 MG PO (04:08)
--- NOTE | 2022-03-10 09:02 | P.DS_ITS ---
DS: Providers Provider Time Seen by Provider: 08:00 Date Seen: 03/10/22 Date of admission: 03/09/22 23:13 Primary care physician: Kristen Smith MD Admitting Clinician: Karli Gtz MD Consults: 03/10/22 06:29 Consult to Board Of Directors [CONS] Routine Comment: Reason for Consult:: PT Requests Adv Dir Info Attending Physician on discharge: Karli Gtz MD Date of Discharge: 03/10/22 DS: Diagnosis Discharge Diagnosis (1) Anemia: Status: Acute (2) History of gastric bypass: Status: Acute (3) care and examination immediately after delivery: Status: Acute (4) Bicornuate uterus: Status: Acute (5) History of delivery: Status: Acute (6) Obesity with body mass index greater than 30: Status: Acute (7) Major depressive disorder: Status: Acute (8) Hypothyroidism: Status: Acute Exam Narrative: Exam Narrative: Physical exam: General: No acute distress Psych: Alert and oriented x3, full affect HEENT: Normocephalic, atraumatic Neck: No cervical adenopathy, no thyromegaly Heart: Regular rate and rhythm, no murmur rub or gallop Lungs: Clear to auscultation bilaterally Abdomen: Normoactive bowel sounds, soft, no tenderness, rebound, or guarding. Uterus 3 cm below umbilicus and firm Lower extremities: No edema or erythema Pelvic exam: Scant vaginal bleeding on pad Const: Vital Signs, click to edit/add: Vital Signs - 24 hr 03/09/22 23:25 03/09/22 23:44 03/09/22 23:49 Temperature Pulse Rate 126 H 117 H Pulse Rate [Pulse Oximeter] Respiratory Rate Blood Pressure 129/100 H 80/40 L Blood Pressure [Le ft Arm] Pulse Oximetry 99 Oxygen Delivery Me thod 03/09/22 23:51 03/09/22 23:54 03/09/22 23:56 Temperature Pulse Rate 71 Pulse Rate [Pulse Oximeter] Respiratory Rate Blood Pressure 112/67 Blood Pressure [Le ft Arm] Pulse Oximetry 92 98 Oxygen Delivery Me thod 03/09/22 23:59 03/10/22 00:01 03/10/22 00:04 Temperature Pulse Rate 76 Pulse Rate [Pulse Oximeter] Respiratory Rate Blood Pressure 121/63 Blood Pressure [Le ft Arm] Pulse Oximetry 99 [facility] 03/10/22 00:06 03/10/22 00:09 03/10/22 00:11 Temperature Pulse Rate 64 61 Pulse Rate [Pulse Oximeter] Respiratory Rate Blood Pressure 115/72 126/78 Blood Pressure [Le ft Arm] Pulse Oximetry 100 [facility] 03/10/22 00:14 03/10/22 00:19 03/10/22 00:24 Temperature Pulse Rate Pulse Rate [Pulse Oximeter] Respiratory Rate Blood Pressure Blood Pressure [Le ft Arm] Pulse Oximetry 100 100 100 [facility] 03/10/22 00:26 03/10/22 00:29 03/10/22 00:34 Temperature Pulse Rate 65 Pulse Rate [Pulse Oximeter] Respiratory Rate Blood Pressure 133/85 Blood Pressure [Le ft Arm] Pulse Oximetry 100 100 [facility] 03/10/22 00:39 03/10/22 00:41 03/10/22 00:44 Temperature Pulse Rate 68 Pulse Rate [Pulse Oximeter] Respiratory Rate Blood Pressure 131/80 Blood Pressure [Le ft Arm] Pulse Oximetry 100 100 [facility] 03/10/22 00:49 03/10/22 00:55 03/10/22 00:58 Temperature Pulse Rate 59 L Pulse Rate [Pulse Oximeter] Respiratory Rate Blood Pressure 143/74 H Blood Pressure [Le ft Arm] Pulse Oximetry 100 100 [facility] 03/10/22 01:00 03/10/22 01:05 03/10/22 01:10 Temperature Pulse Rate Pulse Rate [Pulse Oximeter] Respiratory Rate Blood Pressure Blood Pressure [Le ft Arm] Pulse Oximetry 100 100 100 [facility] 03/10/22 01:11 03/10/22 01:15 03/10/22 01:20 Temperature Pulse Rate 64 Pulse Rate [Pulse Oximeter] Respiratory Rate Blood Pressure 165/70 H Blood Pressure [Le ft Arm] Pulse Oximetry 100 100 [facility] 03/10/22 01:25 03/10/22 01:30 03/10/22 01:35 Temperature Pulse Rate 67 Pulse Rate [Pulse Oximeter] Respiratory Rate Blood Pressure 117/74 Blood Pressure [Le ft Arm] Pulse Oximetry 100 100 [facility] 03/10/22 01:40 03/10/22 01:45 03/10/22 01:55 Temperature Pulse Rate 85 79 Pulse Rate [Pulse Oximeter] Respiratory Rate Blood Pressure 121/71 126/58 L Blood Pressure [Le ft Arm] Pulse Oximetry 100 100 Oxygen Delivery Me thod 03/10/22 03:48 03/09/22 23:29 03/10/22 07:45 Temperature 98.1 F 97.8 F 97.7 F Pulse Rate Pulse Rate [Pulse Oximeter] 88 93 Respiratory Rate 14 18 16 Blood Pressure Blood Pressure [Le ft Arm] 121/83 114/84 Pulse Oximetry 98 99 Oxygen Delivery Me thod Room Air Room Air OB - DS: Summary Hospital Course Hospital Course: The patient is a 36 year old G 8 P 4044 at 37 weeks gestation that was admitted to the [facility] on 03/09/22 for care after precipitous delivery at home. She had an uncomplicated vaginal delivery. She delivered a viable female infant. She is breast feeding. the patient has done well. She has anemia however, Hgb is stable after delivery. Vital signs are stable and within normal limits. Dispo: Patient is PPD#1. Not yet 24 hours. Need the following milestones None. Anticipate discharge POD#1 s/p 24 hours. Time spent discussing smoking cessation with patient: 3 to 10 minutes Peripartum Data Infant delivery method: Vaginal Laceration description: None complications: other (Precipitous delivery at home) [place] Infant Gender: Male A Infant Gender: Female Discharge Plan: Home Status at Discharge Functional status at discharge: independent ambulation Time Spent with Patient Time attestation: Total time spent providing and/or coordinating discharge services: Discharge Plan Discharge Disposition: Home, Self-Care Date of Admission: 03/09/22 23:13 Attending Provider on Discharge: Justine Acosta MD Primary Care Provider: Kristen Smith Condition: Stable Anticipated Discharge Date/Time: 03/10/22 22:52 Discharge Medications: New simethicone 80 mg Tablet,Chewable 80 - 160 mg PO Q4H PRN (Reason: gas) Qty: 60 0RF docusate calcium 240 mg capsule 240 mg PO DAILY Qty: 60 0RF ferrous sulfate 27 mg iron tablet 27 mg PO DAILY Qty: 60 1RF ibuprofen 600 mg tablet 600 mg PO Q6H PRNQty: 30 0RF Continued diphenhydramine HCl [Benadryl] 25 mg capsule 25 mg PO QHS PRN gabapentin 300 mg capsule 300 mg PO DAILY venlafaxine 150 mg capsule,extended release 24hr 150 mg PO DAILY B12 Active 1,000 mcg tablet,chewable 1,000 mcg PO QDAY prenat.vits,marci,hza-ltbb-adkqj Tablet 1 tab PO QDAY acetaminophen 325 mg tablet 325 mg PO PRN Rx Instructions: NO MORE THAN 4000 MG/DAY folic acid 1 mg tablet 1 mg PO QDAY Venofer 200 mg iron/10 mL solution 200 mg IV Q3D Qty: 10 4RF Rx Instructions: administer over 30 mins levothyroxine 175 mcg tablet 175 mcg PO QDAY Qty: 30 3RF Discharge Orders: Discharge Order (Routine); Ordered 03/10/22 Ordered By: Justine Acosta Patient Education: Vaginal Delivery (DC) Follow Up Appointments: Kristen Smith MD [Primary Care Provider] - [facility]
== END 2022-03-10 19:00 | disposition home or self-care (01) | DRG 561 ==
PROVIDERS: Advanced Practice Midwife; Admitting Provider Obstetrics & Gynecology; PCP Internal Medicine; Visit Provider Obstetrics & Gynecology
DX: Z39.0 Encounter for care and examination of mother immediately after delivery (principal); O90.81 Anemia of the puerperium; D64.9 Anemia, unspecified; O99.345 Other mental disorders complicating the puerperium; F32.9 Major depressive disorder, single episode, unspecified; Q51.3 Bicornate uterus; E66.9 Obesity, unspecified; Z98.84 Bariatric surgery status; O99.285 Endocrine, nutritional and metabolic diseases complicating the puerperium; E03.9 Hypothyroidism, unspecified
CPT/HCPCS: 36415; 81003; 85025; 85384; 86850; 86900; 86901; 87635; 88307; A9270; J2210; J7120

== ENCOUNTER 2022-04-18 11:23 | Outpatient (CLI) | payer BC, SELFPAY | END 2022-04-18 11:24 | disposition home or self-care (01) | PROVIDERS: PCP Internal Medicine; Visit Provider Advanced Practice Midwife | DX: E03.9 Hypothyroidism, unspecified (principal) | CPT/HCPCS: 84443 ==

== ENCOUNTER 2022-04-21 15:45 | Outpatient (CLI) | payer BC, SELFPAY ==
[2022-04-21 18:53] LABS: Iron* 19 ug/dL (37-170)
[2022-04-21 19:09] LABS: Total Iron Binding Capacity 546 ug/dL (265-497)
[2022-04-21 19:18] LABS: Percent Iron Saturation 35 % (20-50)
[2022-04-21 19:29] LABS: Ferritin* 3.6 ng/mL (6.24-137.0)
[2022-04-21 19:46] LABS: Vitamin B12* 188 pg/mL (243-894)
[2022-04-24 00:35] LABS: Folate, Serum 11.4 ng/mL (>=5.9)
== END 2022-04-21 15:46 | disposition home or self-care (01) ==
PROVIDERS: PCP Internal Medicine; Visit Provider Advanced Practice Midwife
DX: D64.9 Anemia, unspecified (principal)
CPT/HCPCS: 82607; 82728; 82746; 83540; 83550

== ENCOUNTER 2022-05-05 14:30 | Outpatient (RCR) | payer BC, SELFPAY ==
--- NOTE | 2021-10-31 12:09 | URNOTE ---
Request received for prior authorization of Iron Dextran [id number]. Per BC/Availity no prior authorization is required for Iron Dextran. Ref #[id number]
--- NOTE | 2021-11-04 14:57 | ONC.NURNOTE ---
Addendum entered by Nataliia Broderick, RN 11/08/21 15:05: Per pharmacy, still have no ETA for drug delivery. Software Controls Engineer contacted [facility], and they would like to change the medication. Per UR, venofer would be approved - [facility] notified at [phone] and asked for a new order. Once this order is obtained we will schedule patient. Original Note: Patient has orders for Infed to be given tomorrow. Pharmacy notified [facility] that they are unable to get a delivery date on the drug and question changing to an alternative medication. Software Controls Engineer contacted ordering provider and they would like to wait and see if this will arrive, and asked for one week prior to trying to approve another medication. Patient called and notified of this, she states that they had difficulty with coverage with another medication and that may be why they prefer to wait as well. Nursing to contact patient Thursday with status on medication.
--- NOTE | 2021-11-13 09:22 | URNOTE ---
Received request for prior auth for Iron sucrose ([id number]) Per Avail[employer], prior auth is not required. Ref #[id number]
[2021-11-13 14:10] VITALS: BP 107/69; PULSE 77; RESP 16; TEMP 35.9; O2SAT 98
[2021-11-13] MEDS: IRON SUCROSE COMPLEX 200 MG in 0.9 % SODIUM CHLORIDE 100 ml 100 ML 440 MG IVPB (14:37)
[2021-11-15 13:51] VITALS: BP 112/76; PULSE 76; RESP 16; TEMP 36.8; O2SAT 97
[2021-11-15] MEDS: IRON SUCROSE COMPLEX 200 MG in 0.9 % SODIUM CHLORIDE 100 ml 100 ML 440 MG IVPB (14:19)
[2021-11-15] MEDS: SODIUM CHLORIDE 0.9 % (FLUSH) 10 ML SYRINGE IVF (14:19)
[2021-11-15] MEDS: 0.9 % SODIUM CHLORIDE 250 ml IV (14:19)
[2021-11-15 14:35] VITALS: BP 111/73; PULSE 97
[2021-11-15 15:05] VITALS: BP 118/77
[2021-11-18 13:52] VITALS: BP 115/71; PULSE 90; RESP 16; TEMP 36.4; O2SAT 100
[2021-11-18] MEDS: SODIUM CHLORIDE 0.9 % (FLUSH) 10 ML SYRINGE IVF ×2 (14:15→15:13)
[2021-11-18] MEDS: 0.9 % SODIUM CHLORIDE 250 ml IV (14:15)
[2021-11-18] MEDS: IRON SUCROSE COMPLEX 200 MG in 0.9 % SODIUM CHLORIDE 100 ml 100 ML 440 MG IVPB (14:15)
[2021-11-20 13:45] VITALS: BP 121/76; PULSE 101; RESP 16; TEMP 36.7; O2SAT 100
[2021-11-20] MEDS: IRON SUCROSE COMPLEX 200 MG in 0.9 % SODIUM CHLORIDE 100 ml 100 ML 440 MG IVPB (14:19)
[2021-11-22 13:55] VITALS: BP 109/75; PULSE 92; RESP 16; TEMP 36.5; O2SAT 98
[2021-11-22] MEDS: IRON SUCROSE COMPLEX 200 MG in 0.9 % SODIUM CHLORIDE 100 ml 100 ML 440 MG IVPB (14:17)
[2021-11-22] MEDS: 0.9 % SODIUM CHLORIDE 250 ml IV (14:18)
--- NOTE | 2022-04-03 10:35 | ONC.NURNOTE ---
Patient called to schedule Iron infusion. The order was written on 03/04/22, which was prior to the of her fetus. Patient stated she was told by stocking inspector during her post- stay to call and schedule iron infusions once she was home. Unable to find documentation of this at this time. Called [facility] to advise a new order to be sent over if they feel patient needs this. Patient does have a 6 week follow up coming up in April as well. Patient stated she continues to have low energy but doesn't feel that anything else has changed. Left message for patient that we are waiting for a call back from [facility] for further direction.
--- NOTE | 2022-04-23 11:58 | URNOTE ---
Request received for authorization for Iron Sucrose (Venofer) ([id number]). Prior authorization is not required per [facility] medical injectable list.
[2022-04-24 14:30] VITALS: BP 116/79; PULSE 94; RESP 16; TEMP 36.1; O2SAT 99
[2022-04-24] MEDS: IRON SUCROSE COMPLEX 200 MG in 0.9 % SODIUM CHLORIDE 100 ml 100 ML 440 MG IVPB (14:57)
[2022-04-24] MEDS: 0.9 % SODIUM CHLORIDE 250 ml IV (14:58)
[2022-04-24] MEDS: SODIUM CHLORIDE 0.9 % (FLUSH) 10 ML SYRINGE IVF (14:58)
[2022-04-28 14:34] VITALS: BP 116/67; PULSE 88; RESP 16; TEMP 35.7; O2SAT 99
[2022-04-28] MEDS: 0.9 % SODIUM CHLORIDE 250 ml IV (14:59)
[2022-04-28] MEDS: IRON SUCROSE COMPLEX 200 MG in 0.9 % SODIUM CHLORIDE 100 ml 100 ML 440 MG IVPB (15:05)
[2022-04-28 15:23] VITALS: BP 122/74; PULSE 71; RESP 16; TEMP 36.6; O2SAT 99
[2022-04-28 15:53] VITALS: BP 124/79; PULSE 68; RESP 16; TEMP 36.6; O2SAT 100
[2022-04-30 14:55] VITALS: BP 111/77; PULSE 89; RESP 16; TEMP 36.1; O2SAT 98
[2022-04-30] MEDS: 0.9 % SODIUM CHLORIDE 250 ml IV (15:03)
[2022-04-30] MEDS: IRON SUCROSE COMPLEX 200 MG in 0.9 % SODIUM CHLORIDE 100 ml 100 ML 440 MG IVPB (15:03)
[2022-04-30] MEDS: SODIUM CHLORIDE 0.9 % (FLUSH) 10 ML SYRINGE IVF (15:03)
[2022-05-02] MEDS: 0.9 % SODIUM CHLORIDE 250 ml IV (14:48)
[2022-05-02] MEDS: IRON SUCROSE COMPLEX 200 MG in 0.9 % SODIUM CHLORIDE 100 ml 100 ML 440 MG IVPB (14:48)
[2022-05-02 16:02] VITALS: BP 127/80; PULSE 79; RESP 18; TEMP 36.4; O2SAT 96
[2022-05-05 14:45] VITALS: BP 115/76; PULSE 78; RESP 16; TEMP 36.4; O2SAT 99
[2022-05-05] MEDS: IRON SUCROSE COMPLEX 200 MG in 0.9 % SODIUM CHLORIDE 100 ml 100 ML 440 MG IVPB (14:55)
== END 2022-05-12 23:59 | disposition home or self-care (01) ==
LOC: CCIC 14:30
PROVIDERS: PCP Internal Medicine; Referring Provider Internal Medicine; Visit Provider Obstetrics & Gynecology
DX: O99.019 Anemia complicating pregnancy, unspecified trimester (principal)
CPT/HCPCS: 96365; 96374; J1756; J7050

== ENCOUNTER 2022-05-21 15:25 | Outpatient (CLI) | payer BC, SELFPAY | END 2022-05-21 15:26 | disposition home or self-care (01) | LOC: NFLDREF 05-23 02:06 | PROVIDERS: PCP Internal Medicine; Referring Provider Internal Medicine; Visit Provider Family Medicine | DX: E53.8 Deficiency of other specified B group vitamins (principal); D50.8 Other iron deficiency anemias; K91.89 Other postprocedural complications and disorders of digestive system; E55.9 Vitamin D deficiency, unspecified; Z98.84 Bariatric surgery status | CPT/HCPCS: 80053; 82306; 82525; 82607; 82728; 82747; 83735; 84446; 84590; 84597; 84630 ==

== ENCOUNTER 2023-01-22 14:19 | Outpatient (CLI) | payer BC, SELFPAY | END 2023-01-22 14:20 | disposition home or self-care (01) | LOC: NFLDREF 14:22 | PROVIDERS: PCP Internal Medicine; Visit Provider Advanced Practice Midwife | DX: E03.9 Hypothyroidism, unspecified (principal); E55.9 Vitamin D deficiency, unspecified; E53.8 Deficiency of other specified B group vitamins; E61.1 Iron deficiency | CPT/HCPCS: 84439; 84443 ==

== ENCOUNTER 2023-09-15 16:00 | Outpatient (CLI) | payer BC, SELFPAY ==
--- OUTSIDE RECORDS SUMMARY | 2023-09-15 16:04 | XMS_ITS | Clinical Summary ---
Author Organization [facility] Address [address] [place] [address] Care Team Providers Care Supply Chain Consultant Name Role Phone Gina Bautista PA-C Unavailable [phone] Vidya Espinal APRN CN Unavailable [phone] [facility] Unavaila ble Marissa Jean MD Unavailable [phone] Violette Bolden CNM Primary Care Provider Marissa Jean MD Unavailable [phone] Marissa Jean MD Unavailable [phone] Allergies No known active allergies Medications Medication Sig Dispensed Refills Start Date End Date Status fluticasone (FLONASE) 50 MCG/ACT sprayIndications:Acute sinusitis with symptoms greater than 10 days [place] 1-2 sprays into both nostrils daily 1 Bottle 11 02/22/2017 Active acetaminophen (TYLENOL) 325 MG tablet Every 4 Hours as needed Active FLUoxetine (PROZAC) 40 MG capsule 03/16/2023 Active FLUoxetine (PROZAC) 10 MG tablet 11/15/2022 Active gabapentin (NEURONTIN) 100 MG capsule 03/16/2023 Active LORazepam (ATIVAN) 1 MG tablet 02/19/2023 Active multivitamin w/minerals (MULTI-VITAMIN) tablet 02/14/2022 Ac tive polymixin b-trimethoprim (POLYTRIM) 22685-8.1 UNIT/ML-% ophthalmic solution 03/15/2023 Active MOUNJARO 5 MG/0.5ML pen 03/17/2023 Active Cyanocobalamin 5000 MCG SUBL Active levothyroxine (SYNTHROID/LEVOTHROID) 88 MCG tabletIndications:Othe r specified hypothyroidism Take 100+88= 188 mcg/day 90 tablet 1 03/24/2023 Active levothyroxine (SYNTHROID/LEVOTHROID) 100 MCG tabletIndications:Othe r specified hypothyroidism Take 100+88= 188 mcg/day 90 tablet 1 03/24/2023 Active Active Problems Problem Noted Date Diagnosed Date Hypothyroidism, unspecified 03/18/2023 Anxiety 02/06/2017 Overweight 12/19/2016 S/P gastric bypass 12/19/2016 Adjustment disorder with depressed mood 02/06/20 15 Hypothyroidism due to acquired atrophy of thyroi d 02/05/2015 Encounters Date Type Department Care Team Description 09/09/2023 Telephone [facility] [address] [place] [address] Marissa Jean MD Medication Refill 06/24/2023 Travel 06/16/2023 Travel from Last 3 Months Immunizations Name Administration Dates Next Due HPV Quadrivalent 07/29/2007 Hepatitis A (ADULT 19+) 07/29/2007 Influenza (IIV3) PF 12/19/2016 Influenza Vaccine >6 months,quad, PF 01/17/2020, 11/10/2017,12/19/2016 TD,PF 7+ (Tenivac) 04/05/2018 TDAP (Adacel,Boostrix) 02/04/2022,04/05/2018,03/2012 Family History Medical History Relation Comments Family History Negative Father Family History Negative Mother Relation Status Comments Father Mother Social History Tobacco Use Types Packs/Day Years Used Date Smoking Tobacco: Never Smokeless Tobacco: Never Alcohol Use Standard Drinks/Week Comments Yes 0 (1 standard drink = 0.6 oz pur e alcohol) PHQ-2 Answer Date Recorded PHQ-2 Score 1 03/16/2018 Adolescent Education Answer Date Record ed Getting School Help Needed Not on file 12/07 Sex and Gender Information Value Date Recorded Sex Assigned at Not on file Gender Identity Not on file Sexual Orientation Not on file Last Filed Vital Signs Vital Sign Reading Time Taken Comments Blood Pressure 116/73 03/18/2023 3:20 PM SLITTER PROCESSED FILM Pulse 70 03/18/2023 3:20 PM SLITTER PROCESSED FILM Temperature 36.3 ??C (97.3 ??F) 03/18/2023 3:20 PM CS T Respiratory Rate 16 03/18/2023 3:20 PM SLITTER PROCESSED FILM Oxygen Saturation 97% 03/18/2023 3:20 PM SLITTER PROCESSED FILM Inhaled Oxygen Concentration - - Weight 110.1 kg (242 lb 11.2 oz) 03/18/2023 3:20 PM SLITTER PROCESSED FILM Height 167.6 cm (5' 5.98) 03/18/2023 3:20 PM CS T Body Mass Index 39.19 03/18/2023 3:20 PM SLITTER PROCESSED FILM Plan of Treatment Health Maintenance Due Date Last Done Comments ADVANCE CARE PLANNING 1987 ANNUAL REVIEW OF HM ORDERS 1987 HEPATITIS B IMMUNIZATION (1 of 3 - 19+ 3-dose series) 08/20/2006 HPV IMMUNIZATION (2 - 3-dose series) 08/26/2007 07/29/2007, 07/29/2007 YEARLY PREVENTIVE VISIT 12/19/2017 12/19/2016, 04/25 GLUCOSE 12/20/2019 12/19/2016, 04/09, 05/23/2005 COVID-19 Vaccine ( season) 2022 HPV TEST 01/16/2023 01/17/2020 PAP 01/16/2023 01/17/2020, 01/07, 12/19/2016, Additional history exists PHQ-2 (once per calendar year) 2023 05/08/2017, 04/24/2017, 02/19/2017, Additional history exists INFLUENZA VACCINE (#1) 2023 , 11/10/2017, 12/19/2016, Additional history exists TSH W/FREE T4 REFLEX 03/18/2024 03/18/2023, 03/18/2023, 08/07/2021, Additional history exists DTAP/TDAP/TD IMMUNIZATION (5 - Td or Tdap) 02/05/2032 02/04/2022, 04/05/2018, 04/05/2018, Additional history exists HEPATITIS C SCREENING Completed 08/07/2021 HIV SCREENING Completed 08/07/2021 IPV IMMUNIZATION Aged Out No longer e ligible based on patient's age to complete this topic MENINGITIS IMMUNIZATION Aged Out No l onger eligible based on patient's age to complete this topic Pneumococcal Vaccine: Pediatrics (0 to 5 Years) and At-Risk Patients (6 to 64 Years) Aged Out No longer eligible based on patient's age to complete this topic RSV MONOCLONAL ANTIBODY Aged Out No l onger eligible based on patient's age to complete this topic Procedures Procedure Name Priority Date/Time Associated Diagnosis Comments TSH Routine 03/18/2023 4:05 PM SLITTER PROCESSED FILM Other specified hypothyroidism ABSTRACT HIV Routine 08/07/2021 10:30 AM CDT HEPATITIS C ([facility] EXTERNAL RESULT) Routine 08/07/2021 10:30 AM CDT ABSTRACT PAP ([facility] EXTERNAL RESULT) Routine 01/17/2020 9:30 AM SLITTER PROCESSED FILM ABSTRACT HPV ([facility] EXTERNAL RESULT) Routine 01/17/2020 9:30 AM SLITTER PROCESSED FILM COMPREHENSIVE METABOLIC PANEL Routine 12/19/2016 3:33 PM CDT Hypothyroidism due to acquired atrophy of thyroid Overweight from Last 3 Months or Most Recently Relevant to Health Maintenance Results * (ABNORMAL) TSH (03/18/2023 4:05 PM SLITTER PROCESSED FILM) TSH 4.58(H) 0.30 - 4.20 uIU/mL 03/19/2023 2:03 PM SLITTER PROCESSED FILM [facility] Blood BLOOD SPECIMEN / Unknown Venipuncture / Unknown 03/18/2023 4:05 PM SLITTER PROCESSED FILM 03/18/2023 4:05 PM SLITTER PROCESSED FILM Marissa Jean MD LAB - BLOOD ORDER AL [facility] [address] [facility], [address] [address], [facility] [phone] * ABSTRACT HIV (08/07/2021 10:30 AM CDT) HIV 1&2 EXT Non-Reacti ve Non-Reacti ve [facility] Comment:Negative Blood 08/07/2021 10:3 0 AM CDT [facility] - 08/07/2021 10:30 AM CDT [facility] LAB RESULT Provider Outside LAB - [facility] EXTERNAL R ESULT Performing Organization Address City/[facility]/ZIP Co de Phone Number [facility] [address] [phone] * Hepatitis C (HIM External Result) (08/07/2021 10:30 AM CDT) Hep C [facility] See Scanned Document [facility] Comment:Negative 08/07/2021 10:3 0 AM CDT [facility] - 08/07/2021 10:30 AM CDT [facility] LAB RESULT Provider Outside LAB - [facility] EXTERNAL R ESULT Performing Organization Address [facility] Co de Phone Number [facility] [address] [place], [place] [address] [place] [address] * Abstract HPV (HIM External Result) (01/17/2020 9:30 AM SLITTER PROCESSED FILM) HPV Abstract See Scanned Document [facility] Comment:Negative 01/17/2020 9:30 AM SLITTER PROCESSED FILM Narrative [employer] [facility] - 01/17/2020 9:30 AM SLITTER PROCESSED FILM See Care Everywhere-[employer] [facility] Provider Outside LAB - [facility] EXTERNAL R ESULT [facility] [address] [place] [address], [facility] * Abstract PAP (HIM External Result) (01/17/2020 9:30 AM SLITTER PROCESSED FILM) PAP-ABSTRACT See Scanned Document [facility] Comment:NIL 01/17/2020 9:30 AM SLITTER PROCESSED FILM Narrative [facility] - 01/17/2020 9:30 AM SLITTER PROCESSED FILM See Care Everywhere-[facility] & [facility] Provider Outside LAB - HIM EXTERNAL R ESULT [facility] [address] [place] [address], [facility] * (ABNORMAL) Comprehensive metabolic panel (12/19/2016 3:33 PM CDT) Sodium 140 133 - 144 mmol/L 12/20/2016 12:54 PM CDT [facility] Potassium 4.2 3.4 - 5.3 mmol/L 12/20/2016 12:54 PM CDT [facility] Chloride 110(H) 94 - 109 mmol/L 12/20/2016 12:54 PM CDT [facility] Carbon Dioxide 21 20 - 32 mmol/L 12/20/2016 12:54 PM CDT [facility] Anion Gap 9 3 - 14 mmol/L 12/20/2016 12:54 PM CDT [facility] Glucose 85 70 - 99 mg/dL 12/20/2016 12:54 PM CDT [facility] Urea Nitrogen 9 7 - 30 mg/dL 12/20/2016 12:54 PM CDT [facility] Creatinine 0.75 0.52 - 1.04 mg/dL 12/20/2016 12:54 PM CDT [facility] GFR Estimate >90 >60 mL/min/1.7 m2 12/20/2016 12:54 PM CDT [facility] Comment:Non GFR Calc GFR Estimate If Black >90 >60 mL/min/1.7 m2 12/20/2016 12:54 PM CDT [facility] Comment: GFR Calc Calcium 8.7 8.5 - 10.1 mg/dL 12/20/2016 12:54 PM CDT [facility] Bilirubin Total 0.4 0.2 - 1.3 mg/dL 12/20/2016 12:54 PM CDT [facility] Albumin 3.9 3.4 - 5.0 g/dL 12/20/2016 12:54 PM CDT [facility] Protein Total 7.6 6.8 - 8.8 g/dL 12/20/2016 12:54 PM CDT [facility] Alkaline Phosphatase 61 40 - 150 U/L 12/20/2016 1:02 PM CDT [facility] ALT 20 0 - 50 U/L 12/20/2016 12:54 PM CDT [facility] AST 15 0 - 45 U/L 12/20/2016 12:54 PM CDT [facility] Blood specimen (specimen) 12/19/2016 3:33 PM CDT 12/19/2016 3:34 PM CDT Gina Bautista PA-C LAB - BLOOD ORDERABLES [facility] [address] [place] [address] from Last 3 Months or Most Recently Relevant to Health Maintenance Care Teams Supply Chain Consultant Relationship Specialty Start Date End Date Violette Bolden CNM [facility] [address] [place] [address] PCP - General 09/04/21 Gina Bautista PA-C Physician Limnology Teacher 01/31/15 Vidya Espinal APRN CNM [facility] [address] [place] [address] Crepe Sole Scourer 08/21/21 [facility], [address] [address] 08/21/21 Marissa Jean MD [address] [phone] Hospitalist Endocrinology, Diabetes, and Metabolism 09/04/21 Marissa Jean MD [address] [id number] Hospitalist Endocrinology, Diabetes, and Metabolism 03/18/23 Marissa Jean MD [address] [place] [address] [address] [place], [place] [address] Assigned Endocrinology Provider 03/21/23
--- OUTSIDE RECORDS SUMMARY | 2023-09-15 16:04 | XMS_ITS | Clinical Summary ---
Author Organization [facility] Address [address] [address] Care Team Providers Care Trip Follower Name Role Phone Unavailable Primary Care Provider Unavailabl e Source Comments You are receiving this document as you are listed as the primary care provider,follow-up provider, or the patient has been referred to you for consultation.This is in compliance with the Medicare and[facility] Cent[facility] EHR Incentive Program,which states Providers who transition their patient to another setting of careor provider of care or refers their patient to another provider of care shouldprovide summary care record for each transition of care or referral. [facility] Allergies No known active allergies Medications Medication Sig Dispensed Refills Start Date End Date Status gabapentin (NEURONTIN) 300 MG capsule Take 2 Capsules (600 mg) by mouth daily. Active venlafaxine (EFFEXORXR) 75 MG 24 hour release capsule Take 2 Capsules (150 mg) by mouth daily. Active levothyroxine (SYNTHROID) 175 MCG tablet Take 1 Tablet (175 mcg) by mouth daily. Active FLUoxetine (PROZAC) 10 MG capsule Take 1 Capsule (10 mg) by mouth daily. 11/25/2022 Active Social History Tobacco Use Types Packs/Day Years Used Date Smoking Tobacco: Never Smokeless Tobacco: Never Alcohol Use Standard Drinks/Week Comments Yes 0 (1 standard drink = 0.6 oz pur e alcohol) 1-2/month Sex and Gender Information Value Date Recorded Sex Assigned at Not on file Gender Identity Not on file Sexual Orientation Not on file Last Filed Vital Signs Vital Sign Reading Time Taken Comments Blood Pressure 134/67 12/09/2022 1:30 PM CDT Pulse 100 12/09/2022 1:30 PM CDT Temperature 36.7 ??C (98.1 ??F) 12/09/2022 1:30 PM CD T Respiratory Rate 18 12/09/2022 1:30 PM CDT Oxygen Saturation 98% 12/09/2022 1:30 PM CDT Inhaled Oxygen Concentration - - Weight - - Height - - Body Mass Index - - Plan of Treatment Health Maintenance Due Date Last Done Comments Cervical Cancer Screening Due 1987 Hep C Screening (Preventive Services) 1987 HIV Screening (Preventive Services) 2003 Adult Preventive Visit 08/20/2005 HepB (1) 08/20/2006 HPV Vaccine (2 - 3-dose series) 08/26/2007 07/29/2007 COVID-19 Vaccine ( - 2022-2 4 season) 2022 Influenza (#1) 2023 01/17/2020, 11/10/2017, 12/19/2016 DTaP/Tdap/Td (4 - Tdap) 02/05/2032 02/05/20, 04/05/2018, 03/09/2012 Zoster/Shingles (1 of 2) 08/20/2037 HepA Aged Out 07/29/2007 No longer eligi ble based on patient's age to complete this topic Hib Aged Out No longer eligi ble based on patient's age to complete this topic IPV (Polio) Aged Out No longer eligi ble based on patient's age to complete this topic MCV4 Aged Out No longer eligi ble based on patient's age to complete this topic Pneumococcal Aged Out No longer eligi ble based on patient's age to complete this topic
--- OUTSIDE RECORDS SUMMARY | 2023-09-15 16:04 | XMS_ITS | Clinical Summary ---
Author Organization [facility] Address [place], [place] [address] Care Team Providers Care Director Oncology Name Role Phone Pcp, No Primary Care Provider Unavailabl e Allergies No known active allergies Medications Medication Sig Dispensed Refills Start Date End Date Status acetaminophen (TYLENOL EXTRA STRGTH) 500 mg tablet Take 500 mg by mouth every 6 hours if needed. Max acetaminophen dose: 4000mg in 24 hrs. Active ferrous sulfate, 65 mg elemental, tabletIndications: care in second trimester 1 oral every other day 90 tablet 3 02/02/2018 Active multivitamins-calc eth-ccop-oqphcbui 27-0.4 mg tab tablet Take 1 tablet by mouth once daily. 0 08/24/2018 Active sertraline (ZOLOFT) 100 mg tabletIndications: Depression, recurrent (HC) Take 1 tablet by mouth every morning. 90 tablet 1 10/18/2018 Active levothyroxine (SYNTHROID) 137 mcg tabletIndications: Hypothyroidism (acquired) Take 1 tablet by mouth before breakfast. 60 tablet 5 11/04/2018 Active Hospital, Clinic, or Other Facility Administered Medication Ordered Dose Route Frequency Start Date End Date Status levonorgestrel intrauterine device 1 Device (MIRENA)Indications:Encounter for IUD insertion 1 Device IU Q 5 YEARS 08/24/2018 Active Active Problems Problem Noted Date Diagnosed Date Bariatric surgery status com plicating , third trimester 05/27/2018 labor in third trimester without deliver y 05/25/2018 Overview: arrested; 05/28/18 SVE: without stretching 3/60% post/-1 Sta. complication, habitual aborter, third trimester 05/25/2018 Iron deficiency anemia during , antepar chad 03/17/2018 Overview: ferritin = 9 in March; Hgb [address] [facility] before transfer History of delivery 02/02/2018 High-risk , third trimester 11/10/2017 Overview: 1. History delivery 34 and 36wks, history shortened cervix. Meets criteria for progesterone (perinatology consulted) 2. History SAB x 5 3. Hypothyroidism: was off treatment when got , restarted levothyroxine 10/22/17 around 4wks 4. History depression/anxiety: started on sertraline 10/22/17. Counseling. 5. History gastric bypass, previously needing iron infusions, stable on oral iron over last year prior to 6. 05/03/18: GBS negative. Recommend repeat beginning June if not delivered. 7. contractions with mild external cervical change, admitted to [place] and received steroids x 2. It's a girl. Estimated Date of Delivery: 06/26/18 Patient's last menstrual period was 09/19/2017 (exact date). Last Tdap- 04/05/2018 Last Flu vaccine- 11/10/2017 Glucose (GTT) result- Component Latest Ref Rng & Units 03/18/2018 GLUCOSE,GESTATIONAL 65 - 139 mg/dL 88 Component Latest Ref Rng & Units 05/03/2018 05/26/2018 Culture No Group B Streptococcus isolated. TREPONEMA PALLIDUM Negative Negative No Known Allergies Obstetric History T0 L2 SAB5 TAB0 Ectopic0 Multiple0 Live Births2 # Outcome Date GA Lbr Charles/2nd Weight Sex Delivery Anes PTL Lv 8 Current 7 2017 6 2017 5 2017 4 08/04/13 34w0d M Vag Y [place] 3 2012 2 2011 1 12/02/10 36w0d 2.72 kg (6 lb) M Vag [place] Create lab flowsheet for OB labs- Component Latest Ref Rng & Units 11/03/2017 11/03/2017 11/03/2017 4:31 PM 4:31 PM 4:31 PM [...] data on file. Problems (from 11/03/17 to present) No problems associated with this episode. GURJIT Fisher.....11/11/2017 7:54 AM Anxiety 02/06/2017 Overweight 12/19/2016 Adjustment disorder with depressed mood 02/06/20 15 Hypothyroidism due to acquired atrophy of thyroi d 02/05/2015 S/P gastric bypass 12/20/2007 Resolved Problems Problem Noted Date Diagnosed Date Resolved Date contractions 05/03/2018 019 Encounter for supervision of other normal , first trimester 11/03/2017 05/25/2018 Immunizations Name Administration Dates Next Due Influenza, IIV3 (Age >=3 years) 12/19/2016 Influenza, IIV4 11/10/2017 Tdap 04/05/2018,03/09/2012 Family History Medical History Relation Name Comments Psychiatric illness Father Thyroid Disease Maternal Grandmother Thyroid Disease Mother Relation Name Status Comments Father Alive Maternal Grandmother Mother Alive Social History Tobacco Use Types Packs/Day Years Used Date Smoking Tobacco: Never Smokeless Tobacco: Never Tobacco Cessation:Counseling Given: Yes Alcohol Use Standard Drinks/Week Comments Yes 0 (1 standard drink = 0.6 oz pur e alcohol) PHQ-2 Answer Date Recorded PHQ-2 Score 4 10/18/2018 Sex and Gender Information Value Date Recorded Sex Assigned at Not on file Gender Identity Not on file Sexual Orientation Not on file Obstetrics History Para Term AB IAB SAB Ectopic Multiple Livin g Live Births 9 3 1 2 6 6 3 3 Date Outcome GA Total Labor Labor/2nd/3rd Weight Sex Type Anes PTL [place] A1 A5 Name Clin 2010 36w 0d 2.72 kg (6 lb) M Vag Livin g Amilcar t 2011 34w 0d M Vag Y Jemma michaela Abner Comments:PTL 23wks and put on bedrest, was on progesterone during 2016 SPONTA NEOUS 2017 Term 38w 3d F Vag [place] michaela Last Filed Vital Signs Vital Sign Reading Time Taken Comments Blood Pressure 102/70 10/18/2018 3:49 PM CDT Pulse 70 10/18/2018 3:49 PM CDT Temperature 36.8 ??C (98.2 ??F) 05/28/2018 8:30 AM CD T Respiratory Rate 18 05/28/2018 8:30 AM CDT Oxygen Saturation 100% 10/18/2018 3:49 PM CDT Inhaled Oxygen Concentration - - Weight 99.3 kg (219 lb) 10/18/2018 3:49 PM CDT Height 167.6 cm (5' 6) 08/09/2018 9:35 AM CDT Body Mass Index 35.35 08/09/2018 9:35 AM CDT Plan of Treatment Health Maintenance Due Date Last Done Comments Hepatitis C screening for age 18-79 08/20/2005 BMI (ht and wt on same day) for age 18+ 08/10/2019 08/09/2018, 11/03/2017, 10/22/2017 Depression screening for age 12+ 10/19/2019 10/18/2018, 08/24/2018, 08/10/2018, Additional history exists COVID-19 vaccine series (2022- season) 2022 Pap test for age 21-65 01/16/2023 0, 01/17/2020, 12/19/2016 (Completed outside of [facility]) Influenza for age 9-49 11/08/2023 11/10/2017, 2016 Tetanus booster 04/05/2028 04/05/2018, 03/09/2012 HIV for age 15-65 Completed 11/03/2017 Tdap Completed 04/05/2018, 03/09/2012 Pneumococcal series for age 6-64 Aged Out No longer eligible based on patient's age to complete this topic Procedures Procedure Name Priority Date/Time Associated Diagnosis Comments CORRESPONDENCE SPECIALIST THIN PREP PAP SCREEN IMAGED Routine 01/17/2020 9:30 AM UTILITY ARBORIST ANTI HIV 1/2 Routine 11/03/2017 4:31 PM CDT Encounter for supervision of other normal , first trimester from Last 3 Months or Most Recently Relevant to Health Maintenance Results * CORRESPONDENCE SPECIALIST THIN PREP PAP SCREEN IMAGED (01/17/2020 9:30 AM UTILITY ARBORIST) Case Report Gynecologic Cytology Report ? Case: [id number] ? Authorizing Provider: ??Karli Gtz ??Collected: ? 01/17/2020 0930 ? M, MD ? Ordering Location: ? [facility] ?Received: ?01/17/2020 1639 ? First Screen: ?Radha, Chris ? Rescreen: ?Kay Suh ? Specimen: ?CORRESPONDENCE SPECIALIST ThinPrep Vial Screening, Cervical/Vaginal ? 01/26/2020 3:13 PM [facility] [place] [facility] INTERPRETATION/ RESULT NEGATIVE FOR INTRAEPITHELIAL LESION OR MALIGNANCY (NIL) (none) 01/26/2020 3:13 PM [facility] IMEN ADEQUACY Satisfactory for evaluation Endocervical component present 01/26/2020 3:13 PM [facility] HPV REQUEST HPV and PAP 01/26/2020 3:13 PM [facility] Last Pap Date 01/26/2020 3:13 PM [facility] Comment:unsure Last Pap Result 0 3:13 PM [facility] Comment:abnormal per pt Additional Information IUD 01/26/2020 3:13 PM [facility] Comment: Interpreted at [facility], Central Laboratory - [address], [place] [address] Automated Review Successful 01/26/2020 3:13 PM [facility] Comment:Specimen processed s uccessfully by automated sap portal architect device, ThinPrep Imaging System, [employer] ANCILLARY TESTING CORRESPONDENCE SPECIALIST HPV Ordered, Please see separate report 01/26/2020 3:13 PM [facility] Note The pap test is a screening technique, not a diagnostic procedure. It is used primarily to screen for squamous cancers and precursor lesions. Published studies have shown that it is subject to both false negative and false positive results. The pap test should not be used as the sole means to diagnose or exclude pre-malignant and malignant lesions. 01/26/2020 3:13 PM [facility] Other (Cervical/Vagina l) 01/17/2020 9:30 AM UTILITY ARBORIST 01/17/2020 4:39 PM UTILITY ARBORIST Karli Gtz MD PATHOLOGY/ CYTOLOGY [facility] [address] [place] [address], * ANTI HIV 1/2 (11/03/2017 4:31 PM CDT) HIV-1/HIV-2 ANTIBODY Non-Reacti ve Non-Reacti ve 11/04/2017 2:47 PM CDT [facility] Comment:HIV-1 p24 and HIV-1/ HIV-2 Ab not detected. Blood BLOOD SPECIMEN / Unknown Venipuncture / Unknown 11/03/2017 4:31 PM CDT 11/03/2017 4:31 PM CDT Shelli Lopez SECRETARY TO THE VICE PRESIDENT SEND OUTS Performing Organization Address City/[facility]/ZIP Co de Phone Number [facility] [address] [place] [address], from Last 3 Months or Most Recently Relevant to Health Maintenance Advance Directives * Full Code (Latest Code Status on File) Date Activated Date Inactivated Comments 05/25/2018 11:18 PM 05/28/2018 2:46 PM * Full Code Date Activated Date Inactivated Comments 05/03/2018 7:52 PM 05/04/2018 5:01 PM * Full Code Date Activated Date Inactivated Comments 07/04/2013 11:25 AM 07/04/2013 4:53 PM Care Teams Director Oncology Relationship Specialty Start Date End Date Pcp, No . PCP - General 01/15/19
--- OUTSIDE RECORDS SUMMARY | 2023-09-15 16:05 | XMS_ITS | Encounter Summary ---
Author Organization [place] Address [address] [place] [address] Care Team Providers Care Transportation Escort Name Role Phone Gina Bautista PA-C Unavailable [phone] Vidya Espinal APRN CNM Unavailable [phone] [facility] Unavaila ble Marissa Jean MD Unavailable Violette Bolden CNM Primary Care Provider Marissa Jean MD Unavailable Marissa Jean MD Unavailable [phone] Encounter Details Date Type Department Care Team (Latest Contact Info) Description 06/16/2023 Travel Social History Tobacco Use Types Packs/Day Years [...] on file Sexual Orientation Not on file documented as of this encounter Plan of Treatment Not on file documented as of this encounter Visit Diagnoses Not on filedocumented in this encounter Additional Health Concerns Assessment Noted Time PHQ-9 Depression Total Score: 10 05/09/ 018 8:01 AM PLASTICS FABRICATOR documented as of this encounter Care Teams Transportation Escort Relationship Specialty Start Date End Date Violette Bolden CNM [facility] [address] [place] [address] PCP - General 09/04/21 Gina Bautista PA-C Physician Holiday Detector Operator 01/31/15 Vidya Espinal APRN CNM [address] [place] [address] Chemical Preparer 08/21/21 Clinic, [facility] [address] [place] [address] 08/21/21 Marissa Jean MD [address] [address] Hospitalist Endocrinology, Diabetes, and Metabolism 09/04/21 Marissa Jean MD [address] 531267 Hospitalist Endocrinology, Diabetes, and Metabolism 03/18/23 Marissa Jean MD [address] [place] [address] 200 [place], [place] [address] Assigned Endocrinology Provider 03/21/23 documented as of this encounter
--- OUTSIDE RECORDS SUMMARY | 2023-09-15 16:05 | XMS_ITS | Encounter Summary ---
Author Organization [place] Address [address] [place] [address] Care Team Providers Care Civil Manager Name Role Phone Gina Bautista PA-C Unavailable [phone] Vidya Espinal APRN CNM Unavailable [phone] [facility] Unavaila ble Marissa Jean MD Unavailable Violette Bolden CNM Primary Care Provider Marissa Jean MD Unavailable Marissa Jean MD Unavailable [phone] Encounter Details Date Type Department Care Team (Latest Contact Info) Description 06/24/2023 Travel Social History Tobacco Use Types Packs/Day [...] Total Score: 10 05/09/ 018 8:01 AM MANAGER EMS documented as of this encounter Care Teams Civil Manager Relationship Specialty Start Date End Date Violette Bolden CNM [facility] [address] [place] [address] PCP - General 09/04/21 Gina Bautista PA-C Physician Director Of Dietary 01/31/15 Vidya Espinal APRN CNM [address] [place] [address] Mat Worker 08/21/21 Clinic, [facility] [address] [place] [address] 08/21/21 Marissa Jean MD [address] 462547 Hospitalist Endocrinology, Diabetes, and Metabolism 09/04/21 Marissa Jean MD [address] [address] Hospitalist Endocrinology, Diabetes, and Metabolism 03/18/23 Marissa Jean MD [address] [place] [address] 200 [place], [place] [address] Assigned Endocrinology Provider 03/21/23 documented as of this encounter
--- OUTSIDE RECORDS SUMMARY | 2023-09-15 16:05 | XMS_ITS | Encounter Summary ---
Author Organization [place] Address [address] [place] [address] Care Team Providers Care Pumper Head Name Role Phone Gina Bautista PA-C Unavailable [phone] Vidya Espinal APRN CNM Unavailable [facility] Medical Unavaila ble Marissa Jean MD Unavailable Violette Bolden CNM Primary Care Provider [phone] Marissa Jean MD Unavailable [phone] Marissa Jean MD Unavailable Reason for Visit * Reason Onset Date Comments Appointment 09/04/2021 Encounter Details Date Type Department Care Team (Late st Contact Info) Description 09/04/2021 Telephone [facility] [address] [place] [address] Marissa Jean MD [address] [place] [address] [place] [address] Appointment Social History Tobacco Use Types Packs/Day Years Used Date Smoking Tobacco: Never Smokeless Tobacco: Never Alcohol Use Standard Drinks/Week Comments Yes 0 (1 standard drink = 0.6 oz pur e alcohol) PHQ-2 Answer Date Recorded PHQ-2 Score 1 03/16/2018 Sex and Gender Information Value Date Recorded Sex Assigned at Not on file Gender Identity Not on file Sexual Orientation Not on file documented as of this encounter Miscellaneous Notes * Telephone Encounter - Bhavana Biswas - 09/04/2021 12:21 PM CDT [facility], relayed message to outsole scheduler she will relay this message to the team/person who called. * Telephone Encounter - Marissa Jean MD - 09/04/2021 10:29 AM CDT NEW PT TO ME. I am very sorry- but at this time schedule is booked out and I do not have any sooner appointments. Patient my wish to request endo consult at another locations or [facility] Endocrinology. Let me know if you have any questions. Thank you. Marissa Jean MD * Telephone Encounter - Karyn Iniguez RN - 09/04/2021 9:15 AM CDT Please advise as pt is . * Telephone Encounter - Kendall Burden - 09/04/2021 [...] Noted Time PHQ-9 Depression Total Score: 10 05/09/2 018 8:01 AM TRACTOR DRIVER documented as of this encounter Care Teams Pumper Head Relationship Specialty Start Date End Date Violette Bolden CNM [facility] [address] [place] [address] PCP - General 09/04/21 Gina Bautista PA-C Physician Route Delivery Clerk 01/31/15 Vidya Espinal APRN CNM [address] [place] [address] Bag Sorter 08/21/21 Clinic, [facility] [address] [place] [address] 08/21/21 Marissa Jean MD [address] 6935[address] Hospitalist Endocrinology, Diabetes, and Metabolism 09/04/21 Marissa Jean MD [address] [address] Hospitalist Endocrinology, Diabetes, and Metabolism 03/18/23 Marissa Jean MD [address] [address] [place] [address] Assigned Endocrinology Provider 03/21/23 documented as of this encounter
--- OUTSIDE RECORDS SUMMARY | 2023-09-15 16:05 | XMS_ITS | Referral Summary ---
Author Organization [place] Address [address] [place] [address] Care Team Providers Care Inspector Filter Tip Name Role Phone Gina Bautista PA-C Unavailable [phone] Vidya Espinal APRN CNM Unavailable [phone] [facility] Unavaila ble Marissa Jean MD Unavailable [phone] Violette Bolden CNM Primary Care Provider [phone] Marissa Jean MD Unavailable Marissa Jean MD Unavailable Encounters Date Type Department Care Team Description 09/09/2023 [facility] [address] [facility] [address] [place] [address] Marissa Jean MD Medication Refill 06/24/2023 Travel 06/16/2023 Travel from Last 3 Months Allergies No known active allergies Medications Medication Sig Dispensed Refills Start Date End Date Status fluticasone (FLONASE) 50 MCG/ACT sprayIndications:Acute sinusitis with symptoms greater than 10 days [place] 1-2 sprays into both nostrils daily 1 Bottle 11 02/22/2017 Active acetaminophen (TYLENOL) 325 MG tablet Every 4 Hours as needed Active FLUoxetine (PROZAC) 40 MG capsule 03/16/2023 Active FLUoxetine (PROZAC) 10 MG tablet 11/15/2022 Active gabapentin (NEURONTIN) 100 MG capsule 03/16/2023 Active LORazepam (ATIVAN) 1 MG tablet 02/19/2023 Active multivitamin w/minerals (MULTI-VITAMIN) tablet 02/14/2022 Ac tive polymixin b-trimethoprim (POLYTRIM) 13493-4.1 UNIT/ML-% ophthalmic solution 03/15/2023 Active MOUNJARO 5 [...] to acquired atrophy of thyroi d 02/05/2015 Immunizations Name Administration Dates Next Due HPV Quadrivalent 07/29/2007 Hepatitis A (ADULT 19+) 07/29/2007 Influenza (IIV3) PF 12/19/2016 Influenza Vaccine >6 months,quad, PF 01/17/2020, 11/10/2017,12/19/2016 TD,PF 7+ (Tenivac) 04/05/2018 TDAP (Adacel,Boostrix) 02/04/2022,04/05/2018,03/2012 Social History Tobacco Use Types Packs/Day Years [...] Comments Blood Pressure 116/73 03/18/2023 3:20 PM BRIDGE IRONWORKER Pulse 70 03/18/2023 3:20 PM BRIDGE IRONWORKER Temperature 36.3 ??C (97.3 ??F) 03/18/2023 3:20 PM CS T Respiratory Rate 16 03/18/2023 3:20 PM BRIDGE IRONWORKER Oxygen Saturation 97% 03/18/2023 3:20 PM BRIDGE IRONWORKER Inhaled Oxygen Concentration - - Weight 110.1 kg (242 lb 11.2 oz) 03/18/2023 3:20 PM BRIDGE IRONWORKER Height 167.6 cm (5' 5.98) 03/18/2023 3:20 PM CS T Body Mass Index 39.19 03/18/2023 3:20 PM BRIDGE IRONWORKER Plan of Treatment Not on file Procedures Procedure Name Priority Date/Time Associated Diagnosis Comments TSH Routine 03/18/2023 4:05 PM BRIDGE IRONWORKER Other specified hypothyroidism ABSTRACT HIV Routine 08/07/2021 10:30 AM CDT HEPATITIS C ([facility] EXTERNAL RESULT) Routine 08/07/2021 10:30 AM CDT ABSTRACT PAP ([facility] EXTERNAL RESULT) Routine 01/17/2020 9:30 AM BRIDGE IRONWORKER ABSTRACT HPV ([facility] EXTERNAL RESULT) Routine 01/17/2020 9:30 AM BRIDGE IRONWORKER COMPREHENSIVE METABOLIC PANEL Routine 12/19/2016 3:33 PM CDT Hypothyroidism due to acquired atrophy of thyroid Overweight from Last 3 Months or Most Recently Relevant to Health Maintenance Results * (ABNORMAL) TSH (03/18/2023 4:05 PM BRIDGE IRONWORKER) TSH 4.58(H) 0.30 - 4.20 uIU/mL 03/19/2023 2:03 PM BRIDGE IRONWORKER [facility] Blood BLOOD SPECIMEN / Unknown Venipuncture / Unknown 03/18/2023 4:05 PM BRIDGE IRONWORKER 03/18/2023 4:05 PM BRIDGE IRONWORKER Marissa Jean MD LAB - BLOOD ORDER AL [facility] [address] [facility] [address], Room [address] [place] [address], [facility] [phone] * ABSTRACT HIV (08/07/2021 10:30 AM CDT) Pathologist [facility] HIV 1&2 EXT Non-Reacti ve Non-Reacti ve [facility] Comment:Negative Blood 08/07/2021 10:3 0 AM CDT [facility] - 08/07/2021 10:30 AM CDT [facility] RESULT Provider Outside LAB - [facility] EXTERNAL R ESULT [facility] [address] [place] [address], [facility] [phone] * Hepatitis C (HIM External Result) (08/07/2021 10:30 AM CDT) Hep C HIM See Scanned Document [facility] Comment:Negative 08/07/2021 10:3 0 AM CDT [facility] - 08/07/2021 10:30 AM CDT [facility] RESULT Provider Outside LAB - [facility] EXTERNAL R ESULT Performing Organization Address City/[facility]/ZIP Co de Phone Number [facility] [address] [place] [address], [facility] [phone] * Abstract HPV (HIM External Result) (01/17/2020 9:30 AM BRIDGE IRONWORKER) Pathologist [facility] HPV Abstract See Scanned Document [facility] [employer] [facility] Comment:Negative 01/17/2020 9:30 AM BRIDGE IRONWORKER Narrative [employer] [facility] - 01/17/2020 9:30 AM BRIDGE IRONWORKER See Care Everywhere[facility] Provider Outside LAB - HIM EXTERNAL R ESULT [facility] [facility] [address] [place] [address], [facility] * Abstract PAP (HIM External Result) (01/17/2020 9:30 AM BRIDGE IRONWORKER) PAP-ABSTRACT See Scanned Document [facility] Comment:NIL 01/17/2020 9:30 AM BRIDGE IRONWORKER Narrative [facility] - 01/17/2020 9:30 AM BRIDGE IRONWORKER See Care Everywhere-[facility] [employer] [facility] Provider Outside LAB - HIM EXTERNAL R ESULT [facility] [address] * (ABNORMAL) Comprehensive metabolic panel (12/19/2016 3:33 PM CDT) Sodium 140 133 - 144 mmol/L 12/20/2016 12:54 PM CDT [facility] Potassium 4.2 3.4 - 5.3 mmol/L 12/20/2016 12:54 PM CDT [facility] Chloride 110(H) 94 - 109 mmol/L 12/20/2016 12:54 PM CDT [facility] Carbon Dioxide 21 20 - 32 mmol/L 12/20/2016 12:54 PM CDT [facility] Anion Gap 9 3 - 14 mmol/L 12/20/2016 12:54 PM CDT [facility] Glucose 85 70 - 99 mg/dL 12/20/2016 12:54 PM CDT [facility] Urea Nitrogen 9 7 - 30 mg/dL 12/20/2016 12:54 PM CDT [facility] Creatinine 0.75 0.52 - 1.04 mg/dL 12/20/2016 12:54 PM CDT [facility] GFR Estimate >90 >60 mL/min/1.7 m2 12/20/2016 12:54 PM CDT [facility] Comment:Non GFR Calc GFR Estimate If Black >90 >60 mL/min/1.7 m2 12/20/2016 12:54 PM CDT [facility] Comment: GFR Calc Calcium 8.7 8.5 - 10.1 mg/dL 12/20/2016 12:54 PM CDT [facility] Bilirubin Total 0.4 0.2 - 1.3 mg/dL 12/20/2016 12:54 PM CDT [facility] Albumin 3.9 3.4 - 5.0 g/dL 12/20/2016 12:54 PM CDT [facility] Protein Total 7.6 6.8 - 8.8 g/dL 12/20/2016 12:54 PM CDT [facility] Alkaline Phosphatase 61 40 - 150 U/L 12/20/2016 1:02 PM CDT [facility] ALT 20 0 - 50 U/L 12/20/2016 12:54 PM CDT [facility] AST 15 0 - 45 U/L 12/20/2016 12:54 PM CDT [facility] Blood specimen (specimen) 12/19/2016 3:33 PM CDT 12/19/2016 3:34 PM CDT Gina Bautista PA-C LAB - BLOOD ORDERABLES [facility] [address] [place] [address] from Last 3 Months or Most Recently Relevant to Health Maintenance Care Teams Inspector Filter Tip Relationship Specialty Start Date End Date Violette Bolden CNM NPI: [id number] [place] [address] [address] [place] [address] PCP - General 09/04/21 Gina Bautista PA-C Physician Vibrator Equipment Tester 01/31/15 Vidya Espinal APRN CNM [address] [place] [address] Occupational Health Nursing Director 08/21/21 Clinic, [facility] [address] [place] [address] 08/21/21 Marissa Jean MD [address] [address] Hospitalist Endocrinology, Diabetes, and Metabolism 09/04/21 Marissa Jean MD [address] [address] Hospitalist Endocrinology, Diabetes, and Metabolism 03/18/23 Marissa Jean MD [address] [facility] [address] [place] [address] Assigned Endocrinology Provider 03/21/23
--- OUTSIDE RECORDS SUMMARY | 2023-09-15 16:05 | XMS_ITS | Encounter Summary ---
Author Organization [place] Address [address] [place] [address]. [place] [address] Care Team Providers Care Engineering Project Manager Name Role Phone Gina Bautista PA-C Unavailable [phone] Vidya Espinal APRN CNM Unavailable [phone] [facility] Unavaila ble Marissa Jean MD Unavailable [phone] Violette Bolden CNM Primary Care Provider Marissa Jean MD Unavailable Marissa Jean MD Unavailable Reason for Visit * Reason Comments Medication Refill Encounter Details Date Type Department Care Team (Late st Contact Info) Description 09/09/2023 Telephone [facility] [address] [place] [address] Marissa Jean MD [address] [place] [address] Medication Refill Social History Tobacco Use Types Packs/Day Years [...] encounter Miscellaneous Notes * Telephone Encounter - Yamileth Biswas - 09/14/2023 9:44 AM CDT 09.13- lmtcb x2 to schedule. See message below with scheduling instructions. * Telephone Encounter - Bhavana Biswas - 09/09/2023 10:22 AM CDT 09.08- lmtcb x1- Pt needs labs now for refills. Okay to use 1/2 RADHA for follow up. * Telephone Encounter - Sandy Brunson RN - 09/09/2023 8:58 AM CDT Pt needs labs now for refills. Okay to use 1/2 RADHA for follow up. Per 03/23/23 MC: Labs in 3 months Please make a lab appointment for blood work and follow up clinic appointment in 1 week after that to discuss results. Help schedule OK to book in next available open RADHA slot. (1/2) Please note that there are 2 RADHA slots/day. Please make sure that 1 RADHA slot is available for urgent needs. Let me know if you have any questions. Requested Prescriptions Pending Prescriptions Disp Refills levothyroxine (SYNTHROID/LEVOTHROID) 100 MCG tablet [Pharmacy Med Name: LEVOTHYROXINE 100 MCG TABLET] 90 tablet 1 Sig: TAKE 100+88= 188 MCG/DAY Thyroid Protocol Failed - 09/09/2023 7:47 AM Failed - Normal TSH on file in past 12 months Recent Labs Lab Test 03/18/23 1605 TSH 4.58* Passed - Patient is 12 years or older Passed - Recent (12 mo) or future (30 days) visit within the authorizing provider's specialty The patient must have completed an in-person or virtual visit within the past 12 months or has a future visit scheduled within the next 90 days with the authorizing provider???s specialty. Urgent care and e-visits do not quality as an office visit for this protocol. Passed - Medication is active on med list Passed - Medication indicated for associated diagnosis Medication is associated with one or more of the following diagnoses: Hypothyroidism Thyroid stimulating hormone suppression therapy Thyroid cancer Passed - No active on record If patient is or has had a positive test, please check TSH. Passed - No positive test in past 12 months If patient is or has had a positive test, please check TSH. levothyroxine (SYNTHROID/LEVOTHROID) 88 MCG tablet [Pharmacy Med Name: LEVOTHYROXINE 88 MCG TABLET]90 tablet 1 Sig: TAKE 100+88= 188 MCG/DAY Thyroid Protocol Failed - 09/09/2023 7:47 AM Failed - Normal TSH on file in past 12 months Recent Labs Lab Test 03/18/23 1605 TSH 4.58* Passed - Patient is 12 years or older Passed - Recent (12 mo) or future (30 days) visit within the authorizing provider's specialty The patient must have completed an in-person or virtual visit within the past 12 months or has a future visit scheduled within the next 90 days with the authorizing provider???s specialty. Urgent care and e-visits do not quality as an office visit for this protocol. Passed - Medication is active on med list Passed - Medication indicated for associated diagnosis Medication is associated with one or more of the following diagnoses: Hypothyroidism Thyroid stimulating hormone suppression therapy Thyroid cancer Passed - No active on record If patient is or has had a positive test, please check TSH. Passed - No positive test in past 12 months If patient is or has had a positive test, please check TSH. documented in this encounter Plan of Treatment Not on file documented as of this encounter Visit Diagnoses Diagnosis Other specified hypothyroidism documented in this encounter Additional Health Concerns Assessment Noted Time PHQ-9 Depression Total Score: 10 018 8:01 AM RESOLUTION EXPERT documented as of this encounter Care Teams Engineering Project Manager Relationship Specialty Start Date End Date Violette Bolden CNM [address] [address] PCP - General 09/04/21 Gina Bautista PA-C Physician Assistant Professor Of Chemistry 01/31/15 Vidya Espinal, GILA RANDLE [address] [place] [address] [address]Rd Mate 08/21/21 Clinic, [address] [address] 08/21/21 Marissa Jean MD [address] [address] Hospitalist Endocrinology, Diabetes, and Metabolism 09/04/21 Marissa Jean MD [address] [address] Hospitalist Endocrinology, Diabetes, and Metabolism 03/18/23 Marissa Jean MD [address] [place] [address] 200 [place] [address] Assigned Endocrinology Provider 03/21/23 documented as of this encounter
--- OUTSIDE RECORDS SUMMARY | 2023-09-15 16:05 | XMS_ITS | Encounter Summary ---
Author Organization [place] Address [address] [place] [address] Care Team Providers Care Director Of Leadership Development Name Role Phone Gina Bautista PA-C Unavailable [phone] Vidya Espinal APRN CNM Unavailable [phone] [facility] Medical Unavaila ble Marissa Jean MD Unavailable [phone] Violette Bolden CNM Primary Care Provider Marissa Jean MD Unavailable [phone] Marissa Jean MD Unavailable Encounter Details Date Type Department Care Team (Late st Contact Info) Description 06/18/2022 [facility] [address] [place] [phone] [facility] Social History Tobacco Use Types Packs/Day Years [...] Depression Total Score: 10 018 8:01 AM MLT documented as of this encounter Care Teams Director Of Leadership Development Relationship Specialty Start Date End Date Violette Bolden CNM [facility] [address] [place] [address] PCP - General 09/04/21 Gina Bautista PA-C Physician Secondary Market Manager 01/31/15 Vidya Espinal APRN CNM [address] [address] Flatbed Press Operator 08/21/21 Clinic, [facility] [address] [place] [address] 08/21/21 Marissa Jean MD [address] 06[address] Hospitalist Endocrinology, Diabetes, and Metabolism 09/04/21 Marissa Jean MD [address] [facility] [address] [place], [place] [address] Hospitalist Endocrinology, Diabetes, and Metabolism 03/18/23 Marissa Jean MD [address] [address] [place] [address] Assigned Endocrinology Provider 03/21/23 documented as of this encounter
[2023-09-15 19:07] LABS: Chloride* 105 mmol/L (96-114); Sodium* 137 mmol/L (135-149)
[2023-09-15 19:08] LABS: Potassium* 4.2 mmol/L (3.6-5.1)
[2023-09-15 19:10] LABS: Anion Gap 11 mEq/L (7-15); Carbon Dioxide* 21 mmol/L (20-32); Creatinine* 0.7 mg/dL (0.5-1.5); Estimated Glomerular Filt Rate 115 ml/min
[2023-09-15 19:11] LABS: Blood Urea Nitrogen* 14 mg/dL (5-24); Calcium* 9.5 mg/dL (8.4-10.6); Glucose* 88 mg/dL (60-115)
[2023-09-15 19:30] LABS: Vitamin D 25 Hydroxy* 40 ng/mL (30-80)
[2023-09-15 19:37] LABS: Basophils Absolute Auto 0.01 K/uL (0.00-0.30); Basophils Percent Auto 0.2 % (0.0-3.0); Eosinophils Absolute Auto 0.06 K/uL (0.00-0.50); Eosinophils Percent Auto 1.1 % (0.0-7.0); Hematocrit 53.5 % (33.0-51.0); Hemoglobin* 16.8 gm/dL (12.0-16.0); Immature Granulocytes Abs Auto 0.01 K/uL (0.00-0.30); Immature Granulocytes Pct Auto 0.2 %; Lymphocytes Absolute Auto 1.71 K/uL (0.90-2.90); Lymphocytes Percent Auto 29.9 % (20-44); Mean Corpuscular HGB Conc 31 gm/dL (32-36); Mean Corpuscular Hemoglobin 24 pg (26-34); Mean Corpuscular Volume 77 fL (80-100); Monocytes Percent Auto 4.7 % (0.0-11.0); Neutrophils Absolute Auto 3.65 K/uL (1.7-7.0); Neutrophils Percent Auto 63.9 % (42.0-72.0); Platelet Count* 175 K/uL (140-440); RDW Coefficient of Variation % 15.6 % (11.5-15.5); Red Blood Count 6.97 m/uL (4.00-5.20); White Blood Count* 5.71 K/uL (4.50-11.00)
[2023-09-15 19:43] LABS: TSH With Reflex to FT4* 0.032 uIU/mL (0.270-4.200)
[2023-09-15 19:46] LABS: Slide Review Reflex No
[2023-09-15 19:47] LABS: Ferritin* 6.2 ng/mL (6.24-137.0)
[2023-09-15 20:02] LABS: Vitamin B12* 190 pg/mL (243-894)
[2023-09-15 20:18] LABS: Free T4 Free Thyroxine* 2.04 ng/dL (0.70-1.85)
== END 2023-09-15 16:01 | disposition home or self-care (01) ==
PROVIDERS: PCP Family Medicine; Visit Provider Family Medicine
DX: E61.1 Iron deficiency (principal); R53.83 Other fatigue; E55.9 Vitamin D deficiency, unspecified; E03.9 Hypothyroidism, unspecified; E53.8 Deficiency of other specified B group vitamins
CPT/HCPCS: 80048; 82306; 82607; 82728; 84439; 84443; 85025

== ENCOUNTER 2023-10-19 14:00 | Outpatient (RCR) | payer BC, SELFPAY ==
--- NOTE | 2023-10-06 14:27 | URNOTE ---
Prior auth is not required for Rachel ([id number]) per [employer]. [id number]
[2023-10-08] MEDS: IRON SUCROSE COMPLEX 200 MG in 0.9 % SODIUM CHLORIDE 100 ml 100 ML 440 MG IVPB (13:44)
[2023-10-08 13:56] VITALS: BP 101/61; PULSE 81; RESP 16; TEMP 36.2; O2SAT 100
[2023-10-08 14:08] VITALS: BP 99/67; PULSE 57; RESP 16; TEMP 36.3; O2SAT 100
[2023-10-08 14:42] VITALS: BP 101/68; PULSE 56; RESP 16; TEMP 36.6; O2SAT 100
[2023-10-12 14:08] VITALS: BP 106/69; PULSE 64; RESP 16; TEMP 36.9; O2SAT 100
[2023-10-12] MEDS: IRON SUCROSE COMPLEX 200 MG in 0.9 % SODIUM CHLORIDE 100 ml 100 ML 440 MG IVPB (14:31)
[2023-10-12] MEDS: SODIUM CHLORIDE 0.9 % (FLUSH) 10 ML SYRINGE IVF (14:32)
[2023-10-12] MEDS: 0.9 % SODIUM CHLORIDE 250 ml IV (14:32)
[2023-10-12 15:10] VITALS: BP 116/74; PULSE 67; RESP 14; TEMP 36.4; O2SAT 100
[2023-10-14 14:13] VITALS: BP 114/76; PULSE 90; RESP 16; TEMP 36.9; O2SAT 100
[2023-10-14] MEDS: 0.9 % SODIUM CHLORIDE 250 ml IV (14:35)
[2023-10-14] MEDS: SODIUM CHLORIDE 0.9 % (FLUSH) 10 ML SYRINGE IVF (14:35)
[2023-10-14] MEDS: IRON SUCROSE COMPLEX 200 MG in 0.9 % SODIUM CHLORIDE 100 ml 100 ML 440 MG IVPB (14:35)
[2023-10-14 14:53] VITALS: BP 101/66; PULSE 72; RESP 16; TEMP 36.7; O2SAT 99
[2023-10-14 15:24] VITALS: BP 109/71; PULSE 63; RESP 16; TEMP 36.6; O2SAT 99
[2023-10-16 14:00] VITALS: BP 107/67; PULSE 79; RESP 16; TEMP 36.1; O2SAT 100
[2023-10-16] MEDS: SODIUM CHLORIDE 0.9 % (FLUSH) 10 ML SYRINGE IVF (14:19)
[2023-10-16] MEDS: IRON SUCROSE COMPLEX 200 MG in 0.9 % SODIUM CHLORIDE 100 ml 100 ML 440 MG IVPB (14:19)
[2023-10-16] MEDS: 0.9 % SODIUM CHLORIDE 250 ml IV (14:19)
[2023-10-16 15:06] VITALS: BP 106/68; PULSE 72; RESP 15; TEMP 36.1; O2SAT 100
[2023-10-19 14:01] VITALS: BP 106/72; PULSE 74; RESP 16; TEMP 35.8; O2SAT 99
[2023-10-19] MEDS: IRON SUCROSE COMPLEX 200 MG in 0.9 % SODIUM CHLORIDE 100 ml 100 ML 440 MG IVPB (14:39)
[2023-10-19] MEDS: SODIUM CHLORIDE 0.9 % (FLUSH) 10 ML SYRINGE IVF (14:39)
[2023-10-19] MEDS: 0.9 % SODIUM CHLORIDE 250 ml IV (14:39)
[2023-10-19 15:45] VITALS: BP 107/67; PULSE 74; RESP 15; TEMP 36.4; O2SAT 99
== END 2024-04-05 23:59 | disposition home or self-care (01) ==
LOC: CCIC 14:00
PROVIDERS: PCP Family Medicine; Referring Provider Family Medicine; Visit Provider Clinical Nurse Specialist
DX: D50.9 Iron deficiency anemia, unspecified (principal)
CPT/HCPCS: 96365; 96374; J1756; J7050

== ENCOUNTER 2023-12-21 16:09 | Outpatient (CLI) | payer BC, SELFPAY ==
--- OUTSIDE RECORDS SUMMARY | 2023-12-21 16:16 | XMS_ITS | Clinical Summary ---
Author Organization [facility] Address [address], [place] [address] Care Team Providers Care Oil Well Cable Tool Operator Name Role Phone Unavailable Primary Care Provider Unavailabl e Source Comments You are receiving this document as you are listed as the primary care provider,follow-up provider, or the patient has been referred to you for consultation.This is in compliance with the Medicare and[facility] EHR Incentive Program,which states Providers who transition their patient to another setting of careor provider of care or refers their patient to another provider of care shouldprovide summary care record for each transition of care or referral. [employer] Allergies No known active allergies Medications Medication [...] series) 08/26/2007 07/29/2007 COVID-19 Vaccine ( - 2023-2 5 season) 2023 Influenza (#1) 2023 01/17/2020, 11/10/2017, 12/19/2016 DTaP/Tdap/Td [...] patient's age to complete this topic RSV Aged Out No longer eligi ble based on patient's age to complete this topic MCV4 Aged Out No longer eligi ble based on patient's age to complete this topic Pneumococcal Aged Out No longer eligi ble based on patient's age to complete this topic
--- OUTSIDE RECORDS SUMMARY | 2023-12-21 16:17 | XMS_ITS | Clinical Summary ---
Author Organization [facility] Address [place], [place] [address] Care Team Providers Care Offset Assistant Press Operator Name Role Phone Pcp, No Primary Care [...] day 90 tablet 3 02/02/2018 Active multivitamins-calc kfr-cjds-jdowjmza 27-0.4 mg tab tablet Take 1 tablet [...] in third trimester without deliver y 05/25/2018 Overview (05/28/2018): arrested; 3/22/19 SVE: without stretching 3/60% post/-1 Sta. complication, habitual aborter, third trimester 05/25/2018 Iron deficiency anemia during , antepar chad 03/17/2018 Overview (05/28/2018): ferritin = 9 in March; Hgb 10.3 at [facility] before transfer History of delivery 02/02/2018 High-risk , third trimester 11/10/2017 Overview (06/15/2018): 1. History delivery 34 and 36wks, history [...] with mild external cervical change, admitted to [facility] and received steroids x 2. It's a [...] 0d 2.72 kg (6 lb) M Vag Jemma g Amilcar t 2011 SAB 2013 34w 0d M Vag Y Jemma jennings Abner Comments:PTL 23wks and put on bedrest, was on progesterone during 2016 SPONTA NEOUS 2017 SAB 2018 Term 38w 3d F Vag Jemma g Last Filed Vital Signs Vital Sign Reading [...] 10/19/2019 10/18/2018, 08/24/2018, 08/10/2018, Additional history exists Pap test for age 21-65 01/16/2023 0, 01/17/2020, 12/19/2016 (Completed outside of [facility]) COVID-19 vaccine series (2023- season) 2023 Influenza for age 9-49 11/08/2023 11/10/2017, 2016 Tetanus booster 04/05/2028 04/05/2018, 03/09/2012 HIV for age 15-65 Completed 11/03/2017 Tdap Completed 04/05/2018, 03/09/2012 Pneumococcal series for age 6-64 Aged Out No longer eligible based on patient's age to complete this topic Procedures Procedure Name Priority Date/Time Associated Diagnosis Comments GAMES MANAGER THIN PREP PAP SCREEN IMAGED Routine 01/17/2020 9:30 AM CUSTOMER SUCCESS ADVOCATE ANTI HIV 1/2 Routine 11/03/2017 4:31 PM CDT Encounter for supervision of other normal , first trimester from Last 3 Months or Most Recently Relevant to Health Maintenance Results * GAMES MANAGER THIN PREP PAP SCREEN IMAGED (01/17/2020 9:30 AM CUSTOMER SUCCESS ADVOCATE) Case Report Gynecologic Cytology Report ? Case: [id number] ? Authorizing Provider: ??Karli Gtz ??Collected: ? 01/17/2020 0930 ? M, MD ? Ordering Location: ? [facility] ?Received: ?01/17/2020 1639 ? First Screen: ?Radha, Chris ? Rescreen: ?Kay Suh ? Specimen: ?GAMES MANAGER ThinPrep Vial Screening, Cervical/Vaginal ? 01/26/2020 3:13 PM [facility] INTERPRETATION/ RESULT NEGATIVE FOR INTRAEPITHELIAL LESION OR MALIGNANCY (NIL) (none) 01/26/2020 3:13 PM [facility] IMEN ADEQUACY Satisfactory for evaluation Endocervical component present 01/26/2020 3:13 PM [facility] HPV REQUEST HPV and PAP 01/26/2020 3:13 PM [facility] Last Pap Date 01/26/2020 3:13 PM [facility] Comment:unsure Last Pap Result 0 3:13 PM [facility] Comment:abnormal per pt Additional Information IUD 01/26/2020 3:13 PM [facility] Comment: Interpreted at [facility] Central Laboratory - [address] [address] Automated Review Successful 01/26/2020 3:13 PM [facility] Comment:Specimen processed s uccessfully by automated kiln operator helper device, ThinPrep Imaging System, [employer] ANCILLARY TESTING GAMES MANAGER HPV Ordered, Please see separate report 01/26/2020 3:13 PM [facility] Note The pap test is a screening technique, not a diagnostic procedure. It is used primarily to screen for squamous cancers and precursor lesions. Published studies have shown that it is subject to both false negative and false positive results. The pap test should not be used as the sole means to diagnose or exclude pre-malignant and malignant lesions. 01/26/2020 3:13 PM [facility] Other (Cervical/Vagina l) 01/17/2020 9:30 AM CUSTOMER SUCCESS ADVOCATE 01/17/2020 4:39 PM CUSTOMER SUCCESS ADVOCATE Karli Gtz MD PATHOLOGY/ CYTOLOGY [facility] [address] [place] [address], [place] * ANTI HIV 1/2 (11/03/2017 4:31 PM CDT) HIV-1/HIV-2 ANTIBODY Non-Reacti ve Non-Reacti ve 11/04/2017 2:47 PM CDT [facility] Comment:HIV-1 p24 and HIV-1/ HIV-2 Ab not detected. Blood BLOOD SPECIMEN / Unknown Venipuncture / Unknown 11/03/2017 4:31 PM CDT 11/03/2017 4:31 PM CDT Shelli Lopez YARDAGE CONTROL OPERATOR SEND OUTS Performing Organization Address City/[facility]/ZIP Co de Phone Number [facility] [address] [place] [address], [place] from Last 3 Months or Most Recently Relevant to Health Maintenance Advance Directives * Full Code (Latest Code Status on File) Date Activated Date Inactivated Comments 05/25/2018 11:18 PM 05/28/2018 2:46 PM * Full Code Date Activated Date Inactivated Comments 05/03/2018 7:52 PM 05/04/2018 5:01 PM * Full Code Date Activated Date Inactivated Comments 07/04/2013 11:25 AM 07/04/2013 4:53 PM Care Teams Offset Assistant Press Operator Relationship Specialty Start Date End Date Pcp, No . PCP - General 01/15/19
--- OUTSIDE RECORDS SUMMARY | 2023-12-21 16:17 | XMS_ITS | Encounter Summary ---
Author Organization [facility] Address [address] [place] [address] Care Team Providers Care Internet Application Developer Name Role Phone Gina Bautista PA-C Unavailable [phone] Vidya Espinal APRN CNM Unavailable [phone] Formerly [facility] Unavaila ble Marissa Jean MD Unavailable Violette Bolden CNM Primary Care Provider [phone] Marissa Jean MD Unavailable Marissa Jean MD Unavailable Encounter Details Date Type Department Care Team (Late st Contact Info) Description 06/18/2022 Formerly [facility] [address] [place] [address] [phone] [facility] Social History Tobacco Use Types Packs/Day Years [...] Depression Total Score: 10 018 8:01 AM RECREATION PROFESSOR documented as of this encounter Care Teams Internet Application Developer Relationship Specialty Start Date End Date Violette Bolden CNM [facility] [address] [place] [address] PCP - General 09/04/21 Gina Bautista PA-C Physician Frame Gate Mortiser Operator 01/31/15 Vidya Espinal APRN CNM [address] [address] Washery Engineer 08/21/21 Clinic, [facility] [address] [place] [address] 08/21/21 Marissa Jean MD [address] [address] Hospitalist Endocrinology, Diabetes, and Metabolism 09/04/21 Marissa Jean MD [address] [facility] [address] [place], [place] [address] Hospitalist Endocrinology, Diabetes, and Metabolism 03/18/23 Marissa Jean MD [address] [address] [place] [address] Assigned Endocrinology Provider 03/21/23 documented as of this encounter
--- OUTSIDE RECORDS SUMMARY | 2023-12-21 16:17 | XMS_ITS | Encounter Summary ---
Author Organization [facility] Address [address] [place] [address] Care Team Providers Care Senior Computer Specialist Name Role Phone Gina Bautista PA-C Unavailable [phone] Vidya Espinal APRN CNM Unavailable Formerly [facility] Unavaila ble Marissa Jean MD Unavailable [phone] Violette Bolden CNM Primary Care Provider [phone] Marissa Jean MD Unavailable Marissa Jean MD Unavailable Reason for Visit * Reason Onset Date Comments Appointment 09/04/2021 Encounter Details Date Type Department Care Team (Late st Contact Info) Description 09/04/2021 Telephone [facility] [address] [place] [address] Marissa Jean MD [address] [place] [address] Appointment Social History Tobacco Use [...] CDT [facility], relayed message to agricultural equipment salesperson she will relay this message to the team/person who called. * Telephone Encounter - Marissa Jean MD - 09/04/2021 10:29 AM CDT NEW PT TO ME. I am very sorry- but at this time schedule is booked out and I do not have any sooner appointments. Patient my wish to request endo consult at another locations or [facility] Endocrinology. Let me know if [...] Total Score: 10 05/09/2 018 8:01 AM MANAGER LAB documented as of this encounter Care Teams Senior Computer Specialist Relationship Specialty Start Date End Date Violette Bolden CNM [facility] [address] [place] [address] PCP - General 09/04/21 Gina Bautista PA-C Physician Atm Mechanic 01/31/15 Vidya Espinal APRN CNM [address] [place] [address] Die Engraver 08/21/21 Clinic, [facility] [address] [place] [address] 08/21/21 Marissa Jean MD [address] [address] Hospitalist Endocrinology, Diabetes, and Metabolism 09/04/21 Marissa Jean MD [address] [address] Hospitalist Endocrinology, Diabetes, and Metabolism 03/18/23 Marissa Jean MD [address] [address] [place] [address] Assigned Endocrinology Provider 03/21/23 documented as of this encounter
--- OUTSIDE RECORDS SUMMARY | 2023-12-21 16:17 | XMS_ITS | Referral Summary ---
Author Organization [facility] Address [address] [place] [address] Care Team Providers Care Safety Council Director Name Role Phone Gina Bautista PA-C Unavailable [phone] Vidya Espinal APRN CN Unavailable [phone] [facility] Unavaila ble Marissa Jean MD Unavailable Violette Bolden CNM Primary Care Provider Marissa Jean MD Unavailable [phone] Marissa Jean MD Unavailable Allergies No known active allergies Medications Medication Sig Dispensed Refills Start Date End Date Status fluticasone (FLONASE) 50 MCG/ACT sprayIndications:Acute sinusitis with symptoms greater than 10 days Jean 1-2 sprays into both nostrils daily 1 Bottle 11 02/22/2017 Active acetaminophen (TYLENOL) 325 MG tablet Every 4 Hours as needed Active FLUoxetine (PROZAC) 40 MG capsule 03/16/2023 Active FLUoxetine (PROZAC) 10 MG tablet 11/15/2022 Active gabapentin (NEURONTIN) 100 MG capsule 03/16/2023 Active LORazepam (ATIVAN) 1 MG tablet 02/19/2023 Active multivitamin w/minerals (MULTI-VITAMIN) tablet 02/14/2022 Ac tive polymixin b-trimethoprim (POLYTRIM) 70710-4.1 UNIT/ML-% ophthalmic solution 03/15/2023 Active MOUNJARO 5 [...] Comments Blood Pressure 116/73 03/18/2023 3:20 PM PORT CRANE OPERATOR Pulse 70 03/18/2023 3:20 PM PORT CRANE OPERATOR Temperature 36.3 ??C (97.3 ??F) 03/18/2023 3:20 PM CS T Respiratory Rate 16 03/18/2023 3:20 PM PORT CRANE OPERATOR Oxygen Saturation 97% 03/18/2023 3:20 PM PORT CRANE OPERATOR Inhaled Oxygen Concentration - - Weight 110.1 kg (242 lb 11.2 oz) 03/18/2023 3:20 PM PORT CRANE OPERATOR Height 167.6 cm (5' 5.98) 03/18/2023 3:20 PM CS T Body Mass Index 39.19 03/18/2023 3:20 PM PORT CRANE OPERATOR Plan of Treatment Not on file Procedures Procedure Name Priority Date/Time Associated Diagnosis Comments TSH Routine 03/18/2023 4:05 PM PORT CRANE OPERATOR Other specified hypothyroidism ABSTRACT HIV Routine 08/07/2021 10:30 AM CDT HEPATITIS C ([facility] EXTERNAL RESULT) Routine 08/07/2021 10:30 AM CDT ABSTRACT PAP ([facility] EXTERNAL RESULT) Routine 01/17/2020 9:30 AM PORT CRANE OPERATOR ABSTRACT HPV ([facility] EXTERNAL RESULT) Routine 01/17/2020 9:30 AM PORT CRANE OPERATOR COMPREHENSIVE METABOLIC PANEL Routine 12/19/2016 3:33 PM CDT Hypothyroidism due to acquired atrophy of thyroid Overweight from Last 3 Months or Most Recently Relevant to Health Maintenance Results * (ABNORMAL) TSH (03/18/2023 4:05 PM PORT CRANE OPERATOR) Pathologist [facility] TSH 4.58(H) 0.30 - 4.20 uIU/mL 03/19/2023 2:03 PM PORT CRANE OPERATOR [facility] Blood BLOOD SPECIMEN / Unknown Venipuncture / Unknown 03/18/2023 4:05 PM PORT CRANE OPERATOR 03/18/2023 4:05 PM PORT CRANE OPERATOR Marissa Jean MD LAB - BLOOD ORDER AL [facility] [address] [facility], [address] [place] [address], [facility] [phone] * ABSTRACT HIV (08/07/2021 10:30 AM CDT) Pathologist [facility] HIV 1&2 EXT Non-Reacti ve Non-Reacti ve [facility] Comment:Negative Blood 08/07/2021 10:3 0 AM CDT [facility] - 08/07/2021 10:[address] [facility] RESULT Provider Outside LAB - HIM EXTERNAL R ESULT Performing Organization Address City/[facility]/ZIP Co de Phone Number [facility] [address] [place], [place] [id number] [place] [address] * Hepatitis C (HIM External Result) (08/07/2021 10:30 AM CDT) Hep C HIM See Scanned Document [facility] Comment:Negative 08/07/2021 10:3 0 AM CDT [facility] - 08/07/2021 10:[address] [facility] LAB RESULT Provider Outside LAB - [facility] EXTERNAL R ESULT Performing Organization Address [facility]/ZIP Co de Phone Number [facility] [address] [place], [place] [id number] [place] [address] * Abstract HPV (HIM External Result) (01/17/2020 9:30 AM PORT CRANE OPERATOR) HPV Abstract See Scanned Document [facility] [facility] Comment:Negative 01/17/2020 9:30 AM PORT CRANE OPERATOR Narrative [facility] - 01/17/2020 9:30 AM PORT CRANE OPERATOR See Care Everywhere-[facility] Provider Outside LAB - HIM EXTERNAL R ESULT [facility] [address] [place] [address], [facility] * Abstract PAP (HIM External Result) (01/17/2020 9:30 AM PORT CRANE OPERATOR) PAP-ABSTRACT See Scanned Document [facility] Comment:NIL 01/17/2020 9:30 AM PORT CRANE OPERATOR Narrative [facility] - 01/17/2020 9:30 AM PORT CRANE OPERATOR See Care Everywhere-[facility] Provider Outside LAB - [facility] EXTERNAL R ESULT [facility] [address] * (ABNORMAL) Comprehensive metabolic panel (12/19/2016 3:33 PM CDT) Sodium 140 133 - 144 mmol/L 12/20/2016 12:54 PM CDT [facility] Potassium 4.2 3.4 - 5.3 mmol/L 12/20/2016 12:54 PM CDT [facility] Chloride 110(H) 94 - 109 mmol/L 12/20/2016 12:54 PM CDT [facility] Carbon Dioxide 21 20 - 32 mmol/L 12/20/2016 12:54 PM CDT [facility] Anion Gap 9 3 - 14 mmol/L 12/20/2016 12:54 PM CDT [facility] Glucose 85 70 - 99 mg/dL 12/20/2016 12:54 PM CDT [facility] Urea Nitrogen 9 7 - 30 mg/dL 12/20/2016 12:54 PM T [facility] Creatinine 0.75 0.52 - 1.04 mg/dL 12/20/2016 12:54 PM T [facility] GFR Estimate >90 >60 mL/min/1.7 m2 12/20/2016 12:54 PM CDT [facility] Comment:Non GFR Calc GFR Estimate If Black >90 >60 mL/min/1.7 m2 12/20/2016 12:54 PM CDT [facility] Comment: GFR Calc Calcium 8.7 8.5 - 10.1 mg/dL 12/20/2016 12:54 PM T [facility] Bilirubin Total 0.4 0.2 - 1.3 mg/dL 12/20/2016 12:54 PM T [facility] Albumin 3.9 3.4 - 5.0 g/dL 12/20/2016 12:54 PM CDT [facility] Protein Total 7.6 6.8 - 8.8 g/dL 12/20/2016 12:54 PM CDT [facility] Alkaline Phosphatase 61 40 - 150 U/L 12/20/2016 1:02 PM CDT [facility] ALT 20 0 - 50 U/L 12/20/2016 12:54 PM CDT [facility] AST 15 0 - 45 U/L 12/20/2016 12:54 PM CDT [facility] Blood specimen (specimen) 12/19/2016 3:33 PM CDT 12/19/2016 3:34 PM CDT Gina Bautista PA-C LAB - BLOOD ORDERABLES [facility] [address] [place] [address] from Last 3 Months or Most Recently Relevant to Health Maintenance Care Teams Safety Council Director Relationship Specialty Start Date End Date Violette Bolden CNM [facility] [address] [place] [address] PCP - General 09/04/21 Gina Bautista PA-C Physician Employee Relations Assistant 01/31/15 Vidya Espinal APRN CNM [facility] [address] [facility] [address] [place] [address] Ground Services Instructor 08/21/21 [facility], [address] [address] 08/21/21 Marissa Jean MD [address] [address] Hospitalist Endocrinology, Diabetes, and Metabolism 09/04/21 Marissa Jean MD [address] [address] Hospitalist Endocrinology, Diabetes, and Metabolism 03/18/23 Marissa Jena MD [address] [place] [address] [address] [place], [place] [address] Assigned Endocrinology Provider 03/21/23
--- OUTSIDE RECORDS SUMMARY | 2023-12-21 16:17 | XMS_ITS | Encounter Summary ---
Author Organization [facility] Address [address] [place] [address]. [place] [address] Care Team Providers Care Credit Review Analyst Name Role Phone Gina Bautista PA-C Unavailable [phone] Vidya Espinal APRN CNM Unavailable [phone] Formerly [facility] Unavaila ble Marissa Jean MD Unavailable Violette Bolden CNM Primary Care Provider Marissa Jean MD Unavailable [phone] Marissa Jean MD Unavailable Reason for Visit * Reason Comments Medication Refill Encounter Details Date Type Department Care Team (Late st Contact Info) Description 09/09/2023 Telephone [facility] [address] [place] [address] Marissa Jean MD [address] [place] [address] Medication Refill Social History Tobacco [...] encounter Miscellaneous Notes * Telephone Encounter - Denisa Clifford RN - 09/18/2023 10:00 AM CDT Noted. * Telephone Encounter - Bhavana Biswas - 09/18/2023 9:57 AM CDT No response from patient * Telephone Encounter - Yamileth Biswas - 09/16/2023 12:12 PM CDT 07.10- lmtcb x3 to schedule. See scheduling instructions below * Telephone Encounter - Yamileth Biswas - 09/14/2023 9:44 AM CDT 07.08- lmtcb x2 to schedule. See message below with scheduling instructions. * Telephone Encounter - Bhavana Biswas - 09/09/2023 10:22 AM CDT 07.03- lmtcb x1- Pt needs labs now for [...] book in next available open RADHA slot. (03/10) Please note that there are 2 RADHA [...] Depression Total Score: 10 018 8:01 AM SURGICAL LEAD documented as of this encounter Care Teams Credit Review Analyst Relationship Specialty Start Date End Date Violette Bolden CNM [facility] [address] [place] [address] PCP - General 09/04/21 Gina Bautista PA-C Physician Articulation Officer 01/31/15 Vidya Espinal APRN CNM [address] [address] [employer]er [employer] Strand 08/21/21 Clinic, [facility] [address] [place] [address] 08/21/21 Marissa Jean MD [address] [place] [id number] Hospitalist Endocrinology, Diabetes, and Metabolism 09/04/21 Marissa Jean MD [address] [place], [place] [address] Hospitalist Endocrinology, Diabetes, and Metabolism 03/18/23 Marissa Jean MD [address] [facility] [address] [place] [address] Assigned Endocrinology Provider 03/21/23 documented as of this encounter
--- OUTSIDE RECORDS SUMMARY | 2023-12-21 16:17 | XMS_ITS | Clinical Summary ---
Author Organization [facility] Address [address] [place] [id number] Care Team Providers Care Household Appliances Service Technician Name Role Phone Gina Bautista PA-C Unavailable [phone] Vidya Espinal APRN CN Unavailable [phone] [facility] Unavaila ble Marissa Jean MD Unavailable [phone] Violette Bolden CNM Primary Care Provider Marissa Jean MD Unavailable [phone] Marissa Jean MD Unavailable Allergies No known active allergies Medications Medication Sig Dispensed Refills Start Date End Date Status fluticasone (FLONASE) 50 MCG/ACT sprayIndications:Acute sinusitis with symptoms greater than 10 days [place] 1-2 sprays into both nostrils daily 1 Bottle 11 02/22/2017 Active acetaminophen (TYLENOL) 325 MG tablet Every 4 Hours as needed Active FLUoxetine (PROZAC) 40 MG capsule 03/16/2023 Active FLUoxetine (PROZAC) 10 MG tablet 11/15/2022 Active gabapentin (NEURONTIN) 100 MG capsule 03/16/2023 Active LORazepam (ATIVAN) 1 MG tablet 02/19/2023 Active multivitamin w/minerals (MULTI-VITAMIN) tablet 02/14/2022 Ac tive polymixin b-trimethoprim (POLYTRIM) 55996-4.1 UNIT/ML-% ophthalmic solution 03/15/2023 Active MOUNJARO 5 [...] Comments Blood Pressure 116/73 03/18/2023 3:20 PM CUTTING INSPECTOR Pulse 70 03/18/2023 3:20 PM CUTTING INSPECTOR Temperature 36.3 ??C (97.3 ??F) 03/18/2023 3:20 PM CS T Respiratory Rate 16 03/18/2023 3:20 PM CUTTING INSPECTOR Oxygen Saturation 97% 03/18/2023 3:20 PM CUTTING INSPECTOR Inhaled Oxygen Concentration - - Weight 110.1 kg (242 lb 11.2 oz) 03/18/2023 3:20 PM CUTTING INSPECTOR Height 167.6 cm (5' 5.98) 03/18/2023 3:20 PM CS T Body Mass Index 39.19 03/18/2023 3:20 PM CUTTING INSPECTOR Plan of Treatment Health Maintenance Due Date Last Done Comments ADVANCE CARE PLANNING 1987 ANNUAL REVIEW OF HM ORDERS 1987 HEPATITIS B IMMUNIZATION (1 of 3 - 19+ 3-dose series) 08/20/2006 HPV IMMUNIZATION (2 - 3-dose series) 08/26/2007 07/29/2007, 07/29/2007 YEARLY PREVENTIVE VISIT 12/19/2017 12/19/2016, 04/25 GLUCOSE 12/20/2019 12/19/2016, 04/09, 05/23/2005 HPV TEST 01/16/2023 01/17/2020 PAP 01/16/2023 01/17/2020, 01/07, 12/19/2016, Additional history exists PHQ-2 (once per calendar year) 2023 05/08/2017, 04/24/2017, 02/19/2017, Additional history exists COVID-19 Vaccine ( season) 2023 INFLUENZA VACCINE (#1) 2023 , 11/10/2017, 12/19/2016, Additional history exists TSH W/FREE T4 REFLEX 03/18/2024 03/18/2023, 03/18/2023, 08/07/2021, Additional history exists DTAP/TDAP/TD IMMUNIZATION (5 - Td or Tdap) 02/05/2032 02/04/2022, 04/05/2018, 04/05/2018, Additional history exists RSV VACCINE (1 - 1-dose 75+ series) 08/20/2062 HEPATITIS C SCREENING Completed 08/07/2021 HIV SCREENING Completed 08/07/2021 MENINGITIS IMMUNIZATION Aged Out No l onger [...] Diagnosis Comments TSH Routine 03/18/2023 4:05 PM CUTTING INSPECTOR Other specified hypothyroidism ABSTRACT HIV Routine 08/07/2021 10:30 AM CDT HEPATITIS C (HIM EXTERNAL RESULT) Routine 08/07/2021 10:30 AM CDT ABSTRACT PAP (HIM EXTERNAL RESULT) Routine 01/17/2020 9:30 AM CUTTING INSPECTOR ABSTRACT HPV (HIM EXTERNAL RESULT) Routine 01/17/2020 9:30 AM CUTTING INSPECTOR COMPREHENSIVE METABOLIC PANEL Routine 12/19/2016 3:33 PM CDT Hypothyroidism due to acquired atrophy of thyroid Overweight from Last 3 Months or Most Recently Relevant to Health Maintenance Results * (ABNORMAL) TSH (03/18/2023 4:05 PM CUTTING INSPECTOR) Pathologist [facility] TSH 4.58(H) 0.30 - 4.20 uIU/mL 03/19/2023 2:03 PM CUTTING INSPECTOR [facility] Blood BLOOD SPECIMEN / Unknown Venipuncture / Unknown 03/18/2023 4:05 PM CUTTING INSPECTOR 03/18/2023 4:05 PM CUTTING INSPECTOR Marissa Jean MD LAB - BLOOD ORDER AL [facility] [address] [facility], [address] [place] [address], [facility] [phone] * ABSTRACT HIV (08/07/2021 10:30 AM CDT) Pathologist [facility] HIV 1&2 EXT Non-Reacti ve Non-Reacti ve [facility] Comment:Negative Blood 08/07/2021 10:3 0 AM CDT Narrative [facility] - 08/07/2021 10:30 AM CDT [facility] LAB RESULT Provider Outside LAB - HIM EXTERNAL R ESULT Performing Organization Address City/[facility]/ZIP Co de Phone Number [facility] [address] [place], [place] [id number] [place] [address] * Hepatitis C (HIM External Result) (08/07/2021 10:30 AM CDT) Hep C HIM See Scanned Document [facility] Comment:Negative 08/07/2021 10:3 0 AM CDT Narrative [facility] - 08/07/2021 10:30 AM CDT [facility] LAB RESULT Provider Outside LAB - HIM EXTERNAL R ESULT Performing Organization Address [facility]/ZIP Co de Phone Number [facility] [address] [place], [place] [id number] [place] [address] * Abstract HPV (HIM External Result) (01/17/2020 9:30 AM CUTTING INSPECTOR) HPV Abstract See Scanned Document [facility] Comment:Negative 01/17/2020 9:30 AM CUTTING INSPECTOR Narrative [facility] - 01/17/2020 9:30 AM CUTTING INSPECTOR See Care Everywhere-[facility] [facility] Provider Outside LAB - HIM EXTERNAL R ESULT Performing Organization Address City/[facility]/ZIP Co de Phone Number [facility] [address] * Abstract PAP (HIM External Result) (01/17/2020 9:30 AM CUTTING INSPECTOR) PAP-ABSTRACT See Scanned Document [facility] Comment:NIL 01/17/2020 9:30 AM CUTTING INSPECTOR Narrative [facility] - 01/17/2020 9:30 AM CUTTING INSPECTOR See Care Everywhere[facility] [facility] Provider Outside LAB - HIM EXTERNAL R ESULT [facility] [address] * (ABNORMAL) Comprehensive metabolic panel (12/19/2016 3:33 PM CDT) [facility] Signature Sodium 140 133 - 144 mmol/L 12/20/2016 12:[address] [facility] Potassium 4.2 3.4 - 5.3 mmol/L 12/20/2016 12:[address] [facility] Chloride 110(H) 94 - 109 mmol/L 12/20/2016 12:[address] [facility] Carbon Dioxide 21 20 - 32 mmol/L 12/20/2016 12:[address] [facility] Anion Gap 9 3 - 14 mmol/L 12/20/2016 12:[address] [facility] Glucose 85 70 - 99 mg/dL 12/20/2016 12:[address] [facility] Urea Nitrogen 9 7 - 30 mg/dL 12/20/2016 12:[address] [facility] Creatinine 0.75 0.52 - 1.04 mg/dL 12/20/2016 12:[address] [facility] GFR Estimate >90 >60 mL/min/1.7 m2 12/20/2016 12:[address] [facility] Comment:Non GFR Calc GFR Estimate If Black >90 >60 mL/min/1.7 m2 12/20/2016 12:[address] [facility] Comment: GFR Calc Calcium 8.7 8.5 - 10.1 mg/dL 12/20/2016 12:[address] [facility] Bilirubin Total 0.4 0.2 - 1.3 mg/dL 12/20/2016 12:[address] [facility] Albumin 3.9 3.4 - 5.0 g/dL 12/20/2016 12:[address] [facility] Protein Total 7.6 6.8 - 8.8 g/dL 12/20/2016 12:[address] [facility] Alkaline Phosphatase 61 40 - 150 U/L 12/20/2016 1:[address] [facility] ALT 20 0 - 50 U/L 12/20/2016 12:[address] [facility] AST 15 0 - 45 U/L 12/20/2016 12:[address] [facility] Blood specimen (specimen) 12/19/2016 3:33 PM CDT 12/19/2016 3:34 PM CDT Gina Bautista PA-C LAB - BLOOD ORDERABLES [facility] [address] [place] [address] from Last 3 Months or Most Recently Relevant to Health Maintenance Care Teams Household Appliances Service Technician Relationship Specialty Start Date End Date Violette Bolden CNM [facility] [address] [place] [address] PCP - General 09/04/21 Gina Bautista PA-C Physician Poultry Offal Worker 01/31/15 Vidya Espinal, [facility] [address] [facility] [address] [place] [address] Voting Machine Mechanic 08/21/21 [facility], [address] [address] 08/21/21 Marissa Jean MD [address] [facility] [facility] [address] [place], [place] [address] Hospitalist Endocrinology, Diabetes, and Metabolism 09/04/21 Marissa Jean MD [address] [facility] [address] [place] [address] Hospitalist Endocrinology, Diabetes, and Metabolism 03/18/23 Marissa Jean MD [address] [place] [address] [address] [place] [address] Assigned Endocrinology Provider 03/21/23
== END 2023-12-21 16:10 | disposition home or self-care (01) ==
PROVIDERS: PCP Family Medicine; Visit Provider Family Medicine
DX: E55.9 Vitamin D deficiency, unspecified (principal); E53.8 Deficiency of other specified B group vitamins; E66.1 Drug-induced obesity; E03.9 Hypothyroidism, unspecified; F41.1 Generalized anxiety disorder; E66.09 Other obesity due to excess calories
CPT/HCPCS: 82607; 82728; 84439; 84443; 85025

== ENCOUNTER 2024-07-19 12:00 | Outpatient (CLI) | payer BC, SELFPAY ==
[2024-07-19 16:00] LABS: Chlamydia DNA Amplified* NOT DETECTED (No Detected); GC DNA Amplified* NOT DETECTED (No Detected)
[2024-07-21 01:29] LABS: HPV Source Cervix; HPV, High Risk by TMA Not Detected
== END 2024-07-19 12:01 | disposition home or self-care (01) ==
PROVIDERS: PCP Family Medicine; Visit Provider Registered Nurse
DX: O09.521 Supervision of elderly multigravida, first trimester (principal); O99.281 Endocrine, nutritional and metabolic diseases complicating pregnancy, first trimester; E03.9 Hypothyroidism, unspecified; Z12.4 Encounter for screening for malignant neoplasm of cervix; Z3A.08 8 weeks gestation of pregnancy
CPT/HCPCS: 76817; 83020; 83021; 84443; 85660; 86592; 86703; 86704; 86706; 86762; 86787; 86803; 86850; 87086; 87340; 87491; 87591; 87624; 87625; 88141; 88142

== ENCOUNTER 2024-08-16 16:32 | Outpatient (CLI) | payer BC, SELFPAY ==
--- NOTE | 2024-08-16 16:45 | CRLHL7_ITS ---
For Patients: As a result of the Century Cures Act, medical imaging exams and procedure reports are released immediately into your electronic medical record. You may view this report before your referring provider. If you have questions, please contact your health care provider. INDICATION: Patient care for recurrent loss. LMP of 05/24/2024, with gestational age of 12 weeks 0 days. TECHNIQUE: Ultrasound OB pelvis transvaginal. Real-time szymanski-scale imaging of the pelvis was performed. COMPARISON: None. FINDINGS: There is a single intrauterine gestation. heart tones are identified. The embryo`s crown rump length measurement of 2.0 cm corresponds to a gestational age of 8 weeks 4 days. No yolk sac is identified. The ovaries are of normal size. There are no suspicious fluid collections noted in the cul-de-sac. IMPRESSION: Intrauterine gestation with pole measuring 2.0 centimeters corresponding to gestational age of 8 weeks 4 days. No heart tones identified. Discordant dates. Findings are consistent with early loss. Dictated by Elsa Lord MD @ 08/16/2024 5:47:06 PM (Electronically Signed)
== END 2024-08-16 16:33 | disposition home or self-care (01) ==
LOC: US 16:33
PROVIDERS: PCP Family Medicine; Visit Provider Obstetrics & Gynecology
DX: O26.21 Pregnancy care for patient with recurrent pregnancy loss, first trimester (principal); Z3A.12 12 weeks gestation of pregnancy
CPT/HCPCS: 76817

== ENCOUNTER 2024-08-19 09:04 | Day surgery (SDC) | payer BC, SELFPAY ==
[2024-08-19] VITALS (9 sets, daily range): BP systolic 93–109; BP diastolic 57–78; PULSE 60–70; RESP 16–20; TEMP 36.7–36.9; O2SAT 91–99; BMI 27.8
[2024-08-19] MEDS: LACTATED RINGERS 1000 ML 1,000 ML 100 ML IV (09:15)
[2024-08-19] MEDS: SODIUM CHLORIDE 0.9 % (FLUSH) 10 ML SYRINGE IVF (09:47)
[2024-08-19 09:49] LABS: Hemoglobin* 12.6 gm/dL (12.0-16.0)
[2024-08-19] MEDS: DOXYCYCLINE HYCLATE 100 MG 200 MG PO (10:00)
[2024-08-19] MEDS: VASOPRESSIN 20 UNIT/ML INJ INJECTION (11:07)
[2024-08-19] MEDS: 0.9 % SODIUM CHLORIDE 50 ml INJECTION (11:07)
[2024-08-19] MEDS: LIDOCAINE 1 % PF 30 ML INJECTION (11:08)
--- NOTE | 2024-08-19 11:11 | P.ANES_ITS ---
Anesthesia Charges Start Date/Time Anesthesia Start Date: 08/19/24 Anesthesia Start Time: 10:44 Stop Date/Time Anesthesia Stop Date: 08/19/24 Anesthesia Stop Time: 11:48 Coding CPT Codes CPT Codes: ANESTH INC/MISSED AB PROC - 20196 ([id number]) P2 - PATIENT W/MILD SYST DISEASE, QK - HIGHWAY MAINTENANCE TECHNICIAN 2-4 CNCRNT ANES PROC, QX - LAND ACQUISITION SPECIALIST SVC W/ MD MED DIRECTION
--- NOTE | 2024-08-19 11:11 | W.ANESCHARGE ---
Anesthesia Charges Start Date/Time Anesthesia Start Date: 08/19/24 Anesthesia Start Time: 10:44 Stop Date/Time Anesthesia Stop Date: 08/19/24 Anesthesia Stop Time: 11:48 Coding CPT Codes CPT Codes: ANESTH INC/MISSED AB PROC - 61736 ([id number]) P2 - PATIENT W/MILD SYST DISEASE, QK - PIPE LINE INSPECTOR 2-4 CNCRNT ANES PROC, QX - SUGAR CANE PLANTER MACHINE OPERATOR SVC W/ MD MED DIRECTION
[2024-08-19] MEDS: SILVER NITRATE APPLICATOR 1 EACH STICK..EA. TOPICAL (11:30)
[2024-08-19] MEDS: miSOPROStoL 800 MCG/4 TABLET PR (11:30)
--- NOTE | 2024-08-19 12:41 | P.ANES_ITS ---
Anesthesia Charges Start Date/Time Anesthesia Start Date: 08/19/24 Anesthesia Start Time: 10:44 Stop Date/Time Anesthesia Stop Date: 08/19/24 Anesthesia Stop Time: 11:48 Coding CPT Codes CPT Codes: ANESTH VAGINAL PROCEDURES - 32702 ([id number]) P2 - PATIENT W/MILD SYST DISEASE, QX - PAPER FINAL INSPECTOR SVC W/ MD MED DIRECTION, QK - RN PALLIATIVE CARE 2-4 CNCRNT ANES PROC
--- NOTE | 2024-08-19 12:41 | W.ANESCHARGE ---
Anesthesia Charges Start Date/Time Anesthesia Start Date: 08/19/24 Anesthesia Start Time: 10:44 Stop Date/Time Anesthesia Stop Date: 08/19/24 Anesthesia Stop Time: 11:48 Coding CPT Codes CPT Codes: ANESTH VAGINAL PROCEDURES - 75164 ([id number]) P2 - PATIENT W/MILD SYST DISEASE, QX - COMMERCIAL INSTALLER SVC W/ MD MED DIRECTION, QK - SCHOOL BUSINESS ADMINISTRATOR 2-4 CNCRNT ANES PROC
[2024-08-19] MEDS: KETOROLAC 30 MG/ML inj IVP (12:44)
--- NOTE | 2024-08-19 13:49 | SUR.PHASEII ---
PT denies diffucluty breathing, no heaviness with breaths. Pt on Room Air. Pt voided x1, feels as if she completely emptied her bladder. Nurse notes Scant bleeding on on pad.
--- NOTE | 2024-08-19 17:39 | P.GYNPRC_ITS ---
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 Post-op diagnosis: Missed at 8 weeks, 4 days by CRL Recurrent loss Normal endometrial cavity without septum Procedure: Hysteroscopy with visual dilation and curettage Suction uterine curettage Anesthesia: MAC and local Complications: Elevated saline deficit (2500 cc at cessation of hysteroscopy, adjusting downwards thereafter) accompanied by fleeting mild hypoxia to 90% Surgeon: Mary Guillen MD Estimated blood loss (mL): 25 IV fluids (mL): 350 Urine Output (mL): 100 Pathology: specimen obtained, sent to pathology (products of conception, sent for cytogenetics and surgical pathology) Condition: stable Disposition: PACU Findings: Saline deficit 2085 mL at end of procedure 1. Upon pelvic exam under anesthesia, stage II cystocele and uterine prolapse were noted. Uterus was mobile and retroverted, approximately 10 weeks' size and of normal texture. There were no palpable adnexal masses. 2. Upon hysteroscopy, the endocervix was normal. The endometrial cavity had placental villi and a visible fetus. Once much of the was removed, the endometrial cavity was found to be without a septum or bicornuate appearance. Procedure Description: Patient was taken to the operating room with IV running. She was positioned in dorsal lithotomy position with her legs fully supported in Yellofin stirrups. Monitored anesthesia care was administered. She was prepped and draped in the usual sterile fashion. Exam under anesthesia was performed for the above-noted findings. Her bladder was straight catheterized. Speculum was inserted. Cervix visualized and grasped along the anterior lip with a single-tooth tenaculum. Cervix was circumferentially injected with a solution of dilute vasopressin. Paracervical block was then performed with a total of 10 mL of 1% lidocaine. Cervix was found to be dilated, easily accommodating the 7 F Hegar dilator. The larger diameter TRUCLEAR hysteroscope was assembled with saline inflow and outflow in place. The line was flushed of bubbles. The hysteroscope was advanced through the cervix into the endometrial cavity for the above noted findings. The soft tissue morcellator plus was then inserted through the operating channel. Window lock was performed. Under direct visualization, the endometrial cavity was circumferentially curetted with the tissue morcellator. The saline deficit began to climb rapidly once the placenta was being removed. When a deficit of 2500 cc was reached, hysteroscopy was ended. At this point, there was a small amount of either just decidua or placental fragments in the posterior fundus. A size 8 rigid suction curette was then advanced to the fundus and suction was applied. Tissue returned with the first pass, but none with subsequent passes. A gritty texture was noted throughout. The suction curette was removed. Tenaculum was removed from the anterior lip of cervix. Hemostasis was ultimately achieved with a single [id number] suture of 2-0 Vicryl at the left tenaculum puncture site. There was a short period of time of heavier bleeding immediately after cessation of hysteroscopy, but this slowed thereafter. Patient was treated with 800 mcg of rectal misoprostol. Patient did have decrease in oxygen saturations to 90% during the end of the hysteroscopy, but saturations increased thereafter. She otherwise tolerated procedure well. She was taken to recovery area in stable condition. Postoperative debrief was verbalized with OR staff, including a verification of pathology specimens to be sent as described above.
== END 2024-08-19 13:45 | disposition home or self-care (01) ==
PROVIDERS: PCP Family Medicine; Visit Provider Obstetrics & Gynecology
PROC: (CPT 59820; principal; 2024-08-19 10:30)
DX: O02.1 Missed abortion (principal); Z3A.08 8 weeks gestation of pregnancy; N81.2 Incomplete uterovaginal prolapse
CPT/HCPCS: 59820; 00940; 01965; 36415; 85018; 86850; 86900; 86901; 88233; 88262; 88305; A9270; C1782; J1100; J1885; J2003; J2250; J2405; J2704; J3010; J3490; J7120

== ENCOUNTER 2024-08-31 10:55 | Outpatient (CLI) | payer BC, SELFPAY | END 2024-08-31 10:56 | disposition home or self-care (01) | PROVIDERS: PCP Family Medicine; Visit Provider Obstetrics & Gynecology | DX: Z48.89 Encounter for other specified surgical aftercare (principal); N96 Recurrent pregnancy loss | CPT/HCPCS: 83520; 85520; 85525; 85598; 85610; 85613; 85670; 85730; 86146; 86147; 88262 ==